=== PATIENT | female | born 1975 | race Caucasian/White ===

== ENCOUNTER 2023-09-28 13:01 | Outpatient (OUT) | payer OTHER, SELFPAY ==
--- NOTE | 2023-09-28 13:09 | MM_ITS ---
Patient Name: POORNIMA RIVERA MR#: [id number] : 1975 Exam Date: 09/28/2023 Ordering Doctor: DR Birgit Baldwin M.D. RADIOLOGY REPORT PROCEDURE: MM TOMOSYNTHESIS SCREENING BI COMPARISON: None. INDICATIONS: screening Calculator Name NCI Breast Cancer Risk Assessment Tool 5 Year Breast Cancer Risk 1.90% Lifetime Breast Cancer Risk 18.40% Personal Breast Cancer No Personal Ovarian Cancer No Treatments None Family Cancers Mother with breast cancer at age 75; Aunt-maternal with breast cancer at age ~70; Grandmother-maternal with breast cancer at age ~74. LOCATION: [facility] BREAST COMPOSITION: Scattered areas fibroglandular density. FINDINGS: DIAGNOSTIC CATEGORY 1--NEGATIVE. RIGHT BREAST: No significant suspicious finding. LEFT BREAST: No significant suspicious finding. RECOMMENDATIONS: ROUTINE MAMMOGRAM AND CLINICAL EVALUATION IN 12 MONTHS. PLEASE NOTE: A NORMAL MAMMOGRAM DOES NOT EXCLUDE THE POSSIBILITY OF BREAST CANCER. A CLINICALLY SUSPICIOUS PALPABLE LUMP SHOULD BE BIOPSIED. Dictated by: Flo Driver M.D. on 09/28/2023 at 14:10 Approved by: Flo Driver M.D. on 09/28/2023 at 14:13
== END 2023-09-28 13:02 | disposition home or self-care (01) ==
PROVIDERS: PCP Family Medicine; Visit Provider Family Medicine
DX: Z12.31 Encounter for screening mammogram for malignant neoplasm of breast (principal); Z80.3 Family history of malignant neoplasm of breast
CPT/HCPCS: 77063; 77067

== ENCOUNTER 2023-11-07 21:07 | Outpatient (REF) | payer OTHER, SELFPAY ==
[2023-11-08 16:00] LABS: C. Difficile PCR NEGATIVE (NEGATIVE)
[2023-11-14 06:09] LABS: Pancreatic Elastase, Fecal 232 (>200)
== END 2023-11-07 21:08 | disposition home or self-care (01) ==
LOC: LAB 21:07
PROVIDERS: PCP Family Medicine
DX: R19.7 Diarrhea, unspecified (principal)
CPT/HCPCS: 82656; 87045; 87046; 87427; 87493

== ENCOUNTER 2024-05-24 00:23 | Emergency (ER) | payer OTHER, SELFPAY ==
[2024-05-24] VITALS (26 sets, daily range): BP systolic 88–129; BP diastolic 57–79; PULSE 63–100; TEMP 36.6; O2SAT 95–99; BMI 34.0
--- OUTSIDE RECORDS SUMMARY | 2024-05-24 00:32 | XMS_ITS | CCD ---
Author Organization [facility] Care Team Providers Care Fbi Profiler Name Role Phone Seb Bobo Unavailable DINESH BOBO Primary Care Physician JERAMIE, DR DINESH Franco Admitting Unavailable BOBO, DR DINESH Franco Attending Unavailable BOBO, DR DINESH Franco Primary Care Unavailable BOBO, DR DINESH Franco Consulting Unavailable ROBERT, ЕЛЕНА Consulting Unavailable BOBO, DR DINESH Franco Primary Care Unavailable NAWAF, GERMAINE Admitting Unavailable GERMAINE MCCRACKEN Attending Unavailable NAWAF, GERMAINE Consulting Unavailable BOBO, DR DINESH Franco Admitting Unavailable BOBO, DR DINESH Franco Attending Unavailable BOBO, DR DINESH Franco Primary Care Unavailable BOBO, DR DINESH Franco Admitting Unavailable BOBO, DR DINESH Franco Attending Unavailable BOBO, DR DINESH Franco Primary Care Unavailable ZIEBNATANAEL, DR ROSANNE Devi Consulting Unavailable BOBO, DR DINESH Franco Consulting Unavailable BOBO, DR DINESH Franco Admitting Unavailable BOBO, DR DINESH Franco Attending Unavailable BOBO, DR DINESH Franco Primary Care Unavailable ZIEBNATANAEL, DR ROSANNE Devi Consulting Unavailable BOBO, DR DINESH Franco Consulting Unavailable Dinesh Bobo Unavailable Reza Proctor Attending Unavailable Reza Proctor Referring Unavailable Reza Proctor Admitting Unavailable Reza Proctor Attending Unavailable Reza Proctor Referring Unavailable Hitesh, Reza A Admitting Unavailable Reza Proctor Attending Unavailable Reza Proctor Referring Unavailable Reza Proctor Admitting Unavailable MD Dinesh Bobo Primary Care Provider [phone] DO Imelda Jiang Attending Provider Imelda Jiang Admitting Unavailable Dinesh Bobo Primary Care Unavailable Imelda Jiang Attending Unavailable Dinesh Bobo Primary Care Unavailable Imelda Jiang Admitting Unavailable Imelda Jiang Attending Unavailable Deidre, Imelda Martinez Admitting Unavailable Dinesh Bobo Primary Care Unavailable Imelda Jiang Attending Unavailable Imelda Jiang Admitting Unavailable Dinesh Bobo Primary Care Unavailable Imelda Jiang Attending Unavailable MD Dinesh Bobo Primary Care Provider DO Imelda Jiang Attending Provider Dinesh Bobo MD Primary Care Provider Allergies Allergy Classification Reported Allergen(s) Allergy Type Date of Onset Reaction(s) Facility (13 sources) Sulfanilamide; Translations: [sulfanilamide] Drug Allergy 09-07-19 [facility] (4 sources) Sulfonamides (Antibiotic); Translations: [sulfa drugs] Drug allergy Respiratory failure [facility] (1 source) Sulfonamides (Antibiotic) Drug allergy (disorder) 12-03-19 13 [facility] Repository (11 sources) cefdinir Drug Allergy 09-07-19 Unknown, [facility] (2 sources) Amoxicillin Drug Allergy 01-12-20 07 AMOXICILLIN Lenda [facility] [employer] Other (2 sources) Pseudoephedrine Drug Allergy Unknown [place] Other (8 sources) sulfADIAZINE Drug Allergy 09-07-19 Comment:[facility] (2 sources) Substance with sulfonamide structure and antibacterial mechanism of action (substance) Drug allergy 01-12-20 07 SULFA Lenda [facility] [employer] Other (2 sources) Allergies Reconciled Propensity to adverse reactions Unknown [place] Other (2 sources) patient allergy list reviewed by nurse or physicia Propensity to adverse reactions 01-16-20 19 Comment:Done [place] Other (2 sources) 12 Hour Decongestant Allergy to substance 09-05-19 [facility] (1 source) cefdinir Drug Allergy 01-07-20 [facility] Repository (1 source) sulfADIAZINE Drug Allergy 01-07-20 [facility] Repository Medications Current Medications Medication Drug Class(es) Dates Sig (Normalized) Sig (Original) amoxicillin 875 mg / clavulanate 125 mg oral tablet (3 sources) Penicillin-class Antibacterial take 1 tablet by mouth every twelve hours Amoxicillin-Pot Clavulanate 875-125 MG 1 tablet Orally every 12 hrs Active azithromycin 250 mg oral tablet (3 sources) Macrolide Antimicrobial Start: 08-16-2022 Azithromycin 250 MG as directed Orally 2 tabs po today, then 1 tab daily x 4 more days for 5 Jul, Active colestipol hydrochloride 1000 mg oral tablet (1 source) Bile Acid Sequestrant Start: 03-28-2024 take 1 g by mouth twice daily Colestipol Active 1 GM PO Twice daily 60 March 28, 2024 12:00am Cranberry (7 sources) Non-Standardized Food Allergenic Extract, Non-Standardized Plant Allergenic Extract Start: 10-08-2023 take 400 mg by mouth once daily Cranberry Active 400 MG PO Daily October 08, 2023 12:00am administer with a meal Start: 08-08-2022 cranberry oral capsule See Instructions, Refill(s) 0, Prophylaxis Start Date: 08/08/22 Status: Ordered docusate sodium 100 mg oral capsule (2 sources) Start: 08-18-2022 take 1 capsule by mouth twice daily as needed for constipation Colace 100 mg Cap 100 mg = 1 cap(s), Oral, BID, PRN for constipation, # 20 cap(s), Refills(s) 0, Pharmacy: [facility] 1155, 163, cm, 08/09/22 5:10:00 EST, Height/Length Dosing, 91.2, kg, 08/09/22 5:10:00 EST, Weight Dosing Start Date: 08/18/22 Status: Ordered escitalopram 20 mg oral tablet (18 sources) Serotonin Reuptake Inhibitor Start: 10-26-2023 End: 03-06-2024 take 1 tablet by mouth once daily Escitalopram Oxalate Active 0 .ROUTE .COMPLEX March 06, 2024 8:06am TAKE 1 TABLET BY MOUTH EVERY DAY Start: 08-14-2023 End: 10-26-2023 take 1 tablet by mouth once daily Escitalopram Oxalate Discontinued 20 MG PO Daily August 14, 2023 4:16pm October 26, 2023 10:35am [employer] tablet Orally Once a day; Note: Source Status: Refill; Provider: Jeramie Franco Start: 06-29-2023 take 1 tablet by meseret th every twenty-four hours Escitalopram Oxalate 10 MG 1 tablet Orally Once a day for 30 day(s) Jun, Active take 1 tablet by meseret th every twenty-four hours Escitalopram Oxalate 20 MG 1 tablet Orally Once a day for 30 days Active esomeprazole 40 mg delayed release oral capsule (8 sources) Proton Pump Inhibitor Start: 08-08-2022 take 1 capsule by mouth once daily Nexium 40 mg Cap-EC 40 mg = 1 cap(s), Oral, Daily, Refills(s) 0, Gas Start Date: 08/08/22 Status: Ordered take 1 capsule by mo [facility] every twenty-four hours NexIUM 24HR 20 MG 1 capsule Orally Once a day Active famotidine 40 mg oral tablet (5 sources) Histamine-2 Receptor Antagonist Start: 10-03-2023 take 40 mg by mouth once daily at bedtime Famotidine Active 40 MG PO Daily at bedtime 30 October 03, 2023 12:00am fluconazole 150 mg oral tablet (3 sources) Azole Antifungal Start: 08-21-2022 take 1 tablet by mouth once Fluconazole 150 MG 1 tablet Orally once for 10 days Jul, Active ibuprofen 600 mg oral tablet (3 sources) Nonsteroidal Anti-inflammatory Drug Start: 08-18-2022 take 1 tablet by mouth every eight hours as needed for pain ibuprofen 600 mg Tab 600 mg = 1 tab(s), Oral, q8hr, PRN as needed for pain, with food or milk, # 50 tab(s), Refills(s) 0, Pharmacy: [facility] 1155, 163, cm, 08/09/22 5:10:00 EST, Height/Length Dosing, 91.2, kg, 08/09/22 5:10:00 EST, Weight Dosing Start Date: 08/18/22 Status: Ordered Start: 08-08-2022 take 1 tablet by meseret every six hours as needed for pain ibuprofen 600 mg Tab 600 mg = 1 tab(s), Oral, q6hr, PRN as needed for pain, Refills(s) 0 Start Date: 08/08/22 Status: Ordered pantoprazole 40 mg delayed release oral tablet (12 sources) Proton Pump Inhibitor Start: 12-13-2023 take 40 mg by mouth twice daily Pantoprazole Active 40 MG PO Twice daily 180 90 December 124 12:00am Start: 10-26-2023 End: 12-13-2023 take 1 tablet by mouth once daily Pantoprazole Discontinued 0 .ROUTE .COMPLEX November 30, 2023 11:24am December 13, 2023 1:33pm TAKE 1 TABLET BY MOUTH DAILY Start: 09-07-2023 End: 10-26-2023 take 40 mg by mouth once daily Pantoprazole Discontinu ed 40 MG PO Daily September 07, 2023 12:00am October 26, 2023 10:35am traZODone hydrochloride 100 mg oral tablet (18 sources) Serotonin Reuptake Inhibitor Start: 10-26-2023 End: 03-06-2024 take 1 tablet by mouth once daily at bedtime Trazodone Active 0 .ROUTE .COMPLEX March 06, 2024 8:06am TAKE 1 TABLET BY MOUTH ONCE DAILY AT BEDTIME Start: 08-14-2023 End: 10-26-2023 take 100 mg by mouth once daily at bedtime Trazodone Discontinued 100 MG PO Daily at bedtime August 14, 2023 4:16pm October 26, 2023 10:35am Start: 06-29-2023 take 1 tablet by meseret th every twenty-four hours traZODone HCl 50 MG 1 tablet at bedtime as needed Orally Once a day for 30 day(s) Jun, Active take 1 tablet by meseret th every twenty-four hours traZODone HCl 100 MG 1 tablet at bedtime as needed Orally Once a day for 30 days Active Completed/Discontinued Medications Medication Drug Class(es) Dates Sig (Normalized) Sig (Original) acetaminophen 325 mg / HYDROcodone bitartrate 5 mg oral tablet (2 sources) Opioid Agonist Start: 08-18-2022 [place] 325 mg-5 mg oral tablet See Instructions, for pain, 40 tab(s), Refill(s) 0, 1-2 tab(s) Oral q4hr, [facility], 163, cm, 08/09/22 5:10:00 EST, Height/Length Dosing, 91.2, kg, 08/09/22 5:10:00 EST, Weight Dosing Start Date: 08/18/22 Status: Ordered Cholestyramine Resin (2 sources) Bile Acid Sequestrant Start: 11-06-2023 End: 12-13-2023 take 1 dose by mouth twice daily Cholestyramine (With Sugar) Discontinued 4 GM PO Twice daily 378 November 06, 2023 12:00am December 13, 2023 1:11pm administer w/meal; avoid other meds within 1hr before or 4-6hr after dose ondansetron 4 mg oral tablet (5 sources) Serotonin-3 Receptor Antagonist Start: 10-03-2023 End: 12-13-2023 take 4 mg by mouth every eight hours Ondansetron Hcl Discontinued 4 MG PO Every 8 hours 2 October 03, 2023 12:00am December 13, 2023 1:12pm SUMAtriptan 50 mg oral tablet (12 sources) Serotonin-1b and Serotonin-1d Receptor Agonist Start: 09-05-2023 End: 10-03-2023 take 1 tablet by mouth once daily as needed Sumatriptan Succinate Discontinued MG PO September 05, 2023 12:00am October 03, 2023 10:42am FreeTextSig: TAKE 1 TABLET BY MOUTH EVERY DAY NEEDED Oral; Note: Source Status: Not-Taking\PRN; Refills: 0; Qty: 9 Each; Provider: JERAMIE MONTIEL take 1 tablet by meseret once daily as needed SUMAtriptan Succinate 50 MG TAKE 1 TABLE T BY MOUTH EVERY DAY NEEDED Oral for 9 Days Not-Taking/PRN Problems Active Problems Problem Classification Problem Date Documented Da te Episodic/Chronic Endometriosis (3 sources) Endometriosis (clinical) 08-08-2022 Chronic Esophageal disorders (15 sources) Gastroesophageal reflux disease; Translations: [Gastro-esophageal reflux disease without esophagitis] 08-08-2022 Chronic Genitourinary symptoms and ill-defined conditions (2 sources) Dysuria; Translations: [Dysuria] Episodic Headache; including migraine (12 sources) Migraine; Translations: [Migraine, unspecified, not intractable, without status migrainosus] Onset: 2 Resolved: 2 Chronic Mood disorders (4 sources) Major depression, single episode; Translations: [Major depressive disorder, single episode, unspecified] Chronic Other circulatory disease (2 sources) Elevated blood-pressure reading without diagnosis of hypertension; Translations: [Elevated blood-pressure reading, without diagnosis of hypertension] Episodic Other connective tissue disease (1 source) Pain in forearm; Translations: [Pain in left forearm] Episodic Other connective tissue disease (2 sources) Lateral epicondylitis; Translations: [Lateral epicondylitis, left elbow] Episodic Other ear and sense organ disorders (3 sources) Otalgia, bilateral; Translations: [OTALGIA BILATERAL] Onset: 3 Episodic Other gastrointestinal disorders (5 sources) Chronic constipation; Translations: [Other constipation] 10-03-2023 Episodic Other gastrointestinal disorders (3 sources) Other constipation; Translations: [Constipation, unspecified] 10-03-2023 Episodic Other gastrointestinal disorders (3 sources) Diarrhea; Translations: [Diarrhea, unspecified] 12-13-2023 Episodic Other gastrointestinal disorders (3 sources) Diarrhea, unspecified; Translations: [Diarrhea] Onset: 4 12-13-2023 Episodic Other nervous system disorders (16 sources) Benign intracranial hypertension; Translations: [Benign intracranial hypertension] Onset: 4 08-08-2022 Chronic Other nervous system disorders (6 sources) Benign intracranial hypertension; Translations: [BENIGN INTRACRANIAL HYPERTENSION] Onset: 2 Resolved: 2 Chronic Other nervous system disorders (1 source) Presence of cerebrospinal fluid drainage device Onset: 2 Resolved: 2 Chronic Other nervous system disorders (1 source) Postoperative pain ; Translations: [Other acute postprocedural pain] Episodic Other non-traumatic joint disorders (1 source) Pain of left elbow joint; Translations: [Pain in left elbow] Episodic Other non-traumatic joint disorders (1 source) Pain of left wrist; Translations: [Pain in left wrist] Episodic Other non-traumatic joint disorders (1 source) Joint pain in left hand; Translations: [Pain in joints of left hand] Episodic Other nutritional; endocrine; and metabolic disorders (4 sources) Body mass index 30+ - obesity; Translations: [Body mass index 30.0-30.9, adult] Onset: 8 Chronic Other nutritional; endocrine; and metabolic disorders (4 sources) Obese class I; Translations: [Body mass index (BMI) 34.0-34.9, adult] Chronic Other screening for suspected conditions (not mental disorders or infectious disease) (18 sources) Patient encounter status; Translations: [Encounter for screening mammogram for malignant neoplasm of breast] 09-07-2023 Episodic Otitis media and related conditions (2 sources) Otitis media, unspecified, right ear; Translations: [Other acute nonsuppurative otitis media, bilateral] Onset: 3 Episodic Residual codes; unclassified (5 sources) H/O: risk factor; Translations: [Transfusion history] Episodic Residual codes; unclassified (1 source) Past history of procedure; Translations: [Other specified postprocedural states] Episodic Residual codes; unclassified (2 sources) Family history of breast cancer; Translations: [Family history of malignant neoplasm of breast] Episodic Residual codes; unclassified (2 sources) Family history of diabetes mellitus; Translations: [Family history of diabetes mellitus] Episodic Residual codes; unclassified (2 sources) Insomnia, unspecified Episodic Substance-related disorders (3 sources) Smoker 08-08-2022 Chronic Comment on above: Added secondary to d ocumentation in Social History. Unclassified (3 sources) History of clinical finding in subject 08-08-2022 Past or Other Problems Problem Classification Problem Date Documented Date Episodic/Chronic Abdominal pain (16 sources) Abdominal pain; Translations: [Abdominal pain, other specified site] Onset: 05-05-2013 09-07-2023 Episodic Allergic reactions (2 sources) Contact dermatitis; Translations: [Contact dermatitis and other eczema, due to unspecified cause] Onset: 11-19-2014 Episodic Headache; including migraine (2 sources) Headache; Translations: [Headache] Onset: 01-11-2018 Episodic Nausea and vomiting (2 sources) Nausea; Translations: [Nausea] Onset: 01-11-2018 Episodic Other circulatory disease (1 source) Elevated blood-pressure reading, without diagnosis of hypertension; Translations: [ELEVATED BP READING W/O DX HTN] Onset: 01-25-2022 Episodic Other connective tissue disease (4 sources) Lateral epicondylitis, left elbow; Translations: [LATERAL EPICONDYLITIS LEFT ELBOW] Onset: 01-23-2022 Episodic Other connective tissue disease (1 source) Lateral epicondylitis of left humerus Onset: 08-18-2022 10-11-2022 Episodic Other injuries and conditions due to external causes (2 sources) Nonvenomous insect bite of multiple sites; Translations: [Other, multiple, and unspecified sites, insect bite, nonvenomous, without mention of infection] Onset: 02-07-2016 Episodic Other injuries and conditions due to external causes (2 sources) Motion sickness; Translations: [Motion sickness, initial encounter] Onset: 12-24-2017 Episodic Other non-traumatic joint disorders (2 sources) Hand joint pain; Translations: [Pain in joint, hand] Onset: 01-27-2014 Episodic Other upper respiratory infections (2 sources) Acute maxillary sinusitis; Translations: [Acute recurrent maxillary sinusitis] Onset: 09-20-2015 Episodic Residual codes; unclassified (2 sources) Tobacco user; Translations: [Nondependent tobacco use disorder] Onset: 10-16-2016 Episodic Residual codes; unclassified (2 sources) Insomnia; Translations: [Insomnia, unspecified] Onset: 11-19-2014 Episodic Skin and subcutaneous tissue infections (2 sources) Pyoderma; Translations: [Pyoderma] Onset: 01-15-2019 Episodic Spondylosis; intervertebral disc disorders; other back problems (2 sources) Sciatica; Translations: [Lumbago with sciatica, right side] Onset: 11-29-2015 Episodic Results Test Name Value Interpretation Reference Range Facility Pancreatic Elastase, Stoolon 03-28-2024 Pancreatic Elastase, Stool 612 Normal >200 [facility] Comment on above: Result Comment: Resu lt Units: ug Elast./g Severe Pancreatic Insufficiency: <100 Moderate Pancreatic Insufficiency: 100 - 200 Normal: >200 Performed at: [facility] Lab[address] [id number] Grey Inspector: Dasha Lowery MD, Phone: [phone] PERFORMED BY: [address] [id number] PATHOLOGIST SETUP TECHNICIAN SHAW ANGELO M.D. Performed By: #### E LASTASE STOOL #### [facility] , XR KUBon 03-28-[address] [facility] Main [place] [id number] XRay Report Signed Patient: Poornima Barker MR#: [id number] 745 : 1975 Acct:[id number] Age/Sex: 48 / F ADM Date: 03/28/24 Loc: XD [facility]: [facility] Att[facility] Dr: Imelda Jiang DO Copies to: Imelda Jiang DO Ordering Provider: Imelda Jiang DO Date of Service: 03/28/24 XR/XR KUB: R19.7 - Diarrhea, unspecified XR KUB 03/28/2024 9:31 AM SIGNS AND SYMPTOMS: Lower abdominal pain, diarrhea PROTOCOL: Frontal radiographs of the abdomen and pelvis COMPARISON: None FINDINGS: Requiring surgical clips are noted in the right upper quadrant consistent with prior cholecystectomy. There is a nonobstructive bowel gas pattern. No radiographic evidence of free air. There is a ventricular shunt with tubing extending into the left hemipelvis. Vascular calcifications are present. Degenerative changes are noted in the sacroiliac joints and hips. XR/XR KUB IMPRESSION: No bowel obstruction or free air. A ventricular shunt is present with the tip in the left hemipelvis. Impression dictated by: John Love M.D.03/28/2024 11:37 AM Dictation Location: [place] [address] Transcribed By: [facility] 03/28/24 1137 Dictated By: John Love II, MD 03/28/24 1132 Signed By: 03/28/24 1137 Normal [facility] 01-07-2024 L Specimen: [id number] Received: 01/07/24 Status: RACHEL Polanco Num: [id number] Spec Type: Surgical Subm Dr: Imelda Jiang DO Tissues: A Colon Biopsy (RANDOM COLON BX R/O MICROSCO) Procedures: HE/2, Gross/Micro L4 Age/ Patient Sex Location Account Attending Physician Poornima Barker 48/F [id number] Imelda Jiang DO SPEC NUM: [id number] RECD: 01/07/24 STATUS: RACHEL POLANCO NUM: [id number] IDALIA: 01/07/[address]: Imelda Jiang DO ENTERED: 01/07/[address]: SPEC TYPE: Surgical DEPT: S ORDERED: HE/2, Gross/Micro L4 ORDERED: HE/2, Gross/Micro L4 Pathological Diagnosis Colon, random biopsy: - Colonic mucosa within normal limits - No evidence of microscopic colitis identified Clinical Information Diarrhea. Rule out microscopic colitis. Gross Description Received in formalin labeled with the patient's name, date of and random colon BX are multiple wilkerson mucosal tissue fragments measuring in aggregate 0.9 x 0.4 x 0.1 cm, entirely submitted in A1. CPT Codes 55296 Specimen: [id number] Received: 01/07/24 Status: RACHEL Collin Num: [id number] Spec Type: Surgical Subm Dr: Imelda Jiang DO Tissues: A Colon Biopsy (RANDOM COLON BX R/O MICROSCO) Procedures: HE/Estephania, Gross/Micro L4 Patient: Poornima Barker [id number] (Continued) Signed (signature on file) Jeremiah Potts MD 01/09/24 1542 Normal [facility] Elastase.pancreatic [Mass/ma ss] in Stoolon 11-07-2023 Elastase.pancreatic (Stl) [Mass/Mass] 232 >200 [facility] Comment on above: Result Units: ug [address] st./g Severe Pancreatic Insufficiency: <100 Moderate Pancreatic Insufficiency: 100 - 200 Normal: >200Performed at: - [facility] [address] [id number] Director: Dasha Lowery MD, Phone: [phone] No Panel Informationon 11-06 Clostridium difficile (PCR)(LAB) Negative NEGATIVE [facility] Miscellaneous Test Comment See comment [facility] Comment on above: Specimen Source: ST - Stool - Stool - 700.100 Stool Campylobacter Culture Res 1 See comment [facility] Comment on above: [facility], No Panel InformationOrdered By: Dinesh Bobo on 11-07-2023 E coli Shiga Toxin [facility] Salmonella/Shigella Screen [facility] CT abdomen pelvis w conon CT abdomen pelvis w [facility] [place] [address] CT Scan Report Signed Patient: Poornima Barker MR#: [id number] 745 : 1975 Acct:[id number] Age/Sex: 48 / F ADM Date: 11/02/23 Loc: CT Room: Type: [facility] Attending Dr: Imelda Jiang DO Copies to: Imelda Jiang DO Ordering Provider: Imelda Jiang DO Date of Service: 11/02/23 CT/CT abdomen pelvis w con: R10.9 - Unspecified abdominal pain CT Abdomen and Pelvis withcontrast TECHNIQUE: Axial imaging with 2-D reconstruction.90 cc of Isovue-300. The CT exam was performed using one or more the following dose reduction techniques: Automated exposure control, adjustment of the MA and/or Kv according to patient size, or use of the iterative reconstruction technique. COMPARISON: None History: Abdominal pain. Diarrhea. LIMITATIONS: None LOWER THORAX Unremarkable LIVER: Unremarkable GALLBLADDER: Cholecystectomy clips identified. BILE DUCTS: No dilatation SPLEEN: Unremarkable PANCREAS: Unremarkable ADRENAL GLANDS: Unremarkable KIDNEYS:Unremarkable AORTA: No abdominal aortic aneurysm identified. RETROPERITONEUM: No significant retroperitoneal abnormalities identified. MESENTERY:Unremarkable SMALL BOWEL: The small bowel loops are nondistended. APPENDIX: The appendix is normal. COLON: Unremarkable URINARY BLADDER: Urinary bladder is unremarkable. REPRODUCTIVE SYSTEM: The uterus is absent. PNEUMOPERITONEUM: None PERITONEAL FLUID:None BONY STRUCTURES: Unremarkable ABDOMINAL WALL: Unremarkable shunt tubing terminates in the pelvis. No worrisome fluid collection. CT/CT abdomen pelvis w con IMPRESSION: No acute findings. Impression dictated by: José Perez M.D.11/02/2023 2:27 PM Dictation Location: [place] [address] Transcribed By: [facility] 11/02/23 142 Dictated By: José Perez DO 11/02/23 142 Signed By: 11/02/23 142 Normal [facility] 10-19-2023 L Specimen: [id number] Received: 10/19/23 Status: SOUKelli Polanco Num: [id number] Spec Type: Surgical Subm Dr: Imelda Jiang DO Tissues: A Small Intestine - Biopsy/Polyp (SMALL BOWEL BX) B GASTRIC FOR HP (GASTRIC HP) C Colon Biopsy (SIGMOID POLYP) Procedures: HE/6, Gross/Micro L4/3, H PYLORI, IHC First AB Age/ Patient Sex Location Account Attending Physician Poornima Barker 48/F [id number] Imelda Jiang DO SPEC NUM: [id number] RECD: 10/19/23 STATUS: RACHEL POLANCO NUM: [id number] IDALIA: 10/19/23- SUBM DR: Imelda Jiang DO ENTERED: 10/19/23-[address] [facility] [address]: SPEC TYPE: Surgical DEPT: S ORDERED: HE/6, Gross/Micro L4/3, H PYLORI, IHC First AB ORDERED: HE/6, Gross/Micro L4/3, H PYLORI, IHC First AB Pathological Diagnosis A. Small bowel, biopsy: No significant pathologic abnormality. B. Stomach, Biopsy: Reactive/ Chemical Gastropathy. - H. Pylori Immunostain Is Negative For H. Pylori Organisms. C. Polyp, sigmoid colon, biopsy: Hyperplastic polyp. Gross Description A. Received in formalin, labeled with the patient's name and small bowel BX is a 0.2 x 0.2 x 0.1 cm wilkerson mucosal tissue fragment, entirely submitted in A1. B. Received in formalin, labeled with the patient's name and gastric BX are 2 wilkerson mucosal tissue fragments each measuring 0.2 x 0.2 x 0.2 cm, entirely submitted in B1. C. Received in formalin, labeled with the patient's name and sigmoid polyp are 2 wilkerson mucosal tissue fragments measuring 0.3 x 0.2 x 0.1 cm and 0.2 x 0.1 x 0.1 cm, entirely submitted in C1. Clinical history: Epigastric pain, nausea, screening. Rule out celiac, rule out H. pylori Specimen: [id number] Received: 10/19/23 Status: RACHEL Davislisset Num: [id number] Spec Type: Surgical Subm Dr: Imelda Jiang DO Tissues: A Small Intestine - Biopsy/Polyp (SMALL BOWEL BX) B GASTRIC FOR HP (GASTRIC HP) C Colon Biopsy (SIGMOID POLYP) Procedures: HE/6, Gross/Micro L4/3, H PYLORI, IHC First AB Patient: Poornima Barker [id number] ([facility]) Specimen: [id number] Received: 10/19/23 (Continued) Signed (signature on file) Asya Wetzel MD 10/22/23 1600 Specimen: [id number] Received: 10/19/23 Status: RACHEL Davislisset Num: [id number] Spec Type: Surgical Subm Dr: Imelda Jiang DO Tissues: A Small Intestine - Biopsy/Polyp (SMALL BOWEL BX) B GASTRIC FOR HP (GASTRIC HP) C Colon Biopsy (SIGMOID POLYP) Procedures: HE/6, Gross/Micro L4/3, H PYLORI, IHC First AB Patient: Poornima Barker [id number] (Continued) Specimen: Received: 10/19/23 (Continued) CPT Codes [id number], [id number] Specimen: Received: 10/19/23 Status: RACEHL Davislisset Num: [id number] Spec Type: Surgical Subm Dr: Imelda Jiang DO Tissues: A Small Intestine - Biopsy/Polyp (SMALL BOWEL BX) B GASTRIC FOR HP (GASTRIC HP) C Colon Biopsy (SIGMOID POLYP) Procedures: HE/6, Gross/Micro L4/3, H PYLORI, IHC First AB Patient: Poornima Barker [id number] (Continued) Signed (signature on file) Asya Wetzel MD 10/22/23 1600 Normal [facility] Nonvisit Note - OTon 023 Nonvisit Note - OT , pt cxl'd in remind system, no reason available. Normal [facility] Nonvisit Note - OTon 023 Nonvisit Note - OT pt cxl'd in remind system, no reason available. Normal [facility] Nonvisit Note - OTon 023 Nonvisit Note - OT Pt. cx, d/t an emergency. [facility] OT - Home Exercise Programon 11-08-2022 OT - Home Exercise Program [id number]#1.00 CD:127 [facility] OT - Progress Noteson 2022 OT - Progress Notes [id number] [id number]#1.00 CD:127 [facility] OT - [place] 10-20-2022 OT - Orders [id number] [id number]#1.00 CD:127 [facility] OT - Assessmentson OT - Assessments [id number]#1.00C D:127 [facility] OT - Consentson 10-19-2022 OT - Consents [id number]#1.00C D:127 [facility] OT - Home Exercise Programon 10-19-2022 OT - Home Exercise Program [id number]#1.00C D:127 [facility] Coding Summary.on 10-12-2022 Coding Summary. CD:[id number] Ww+ PGhlYWQ+FP1KHNTsW39atRP ufN0mU1QRBZqHQiivKSSFOZ uTLwPebnVuTZ3nuPHdXVFm IC8+NU5dCSXoNnmuzXWfs9X 4vXP4U28sma0vPHzkyYG1IY TcUjPkafzpx0mvuQb0IQkmE mluOyBt OEAjsP54SBU5mU24Dk13tOS orUQtm2sseMf8FkKmRODbLP C0mShbYJifr9CsRTFwM65vw EFqu1P3 BAHnjQhitRWkWzRnkTI3sX0 bCQvsxuuzs7krtruzHhr8ea 45eGQls8B8qBN2A8HaivW4P GJvbGQg KgdfbKYMoZ2mjglwh4rrkja cGiMpMZEyYGu2ZOs5XBQubQ ccSyMcRJ98MMY1VSBtenDnA 2FsLWFs yIjyIpI6q2P6Ok1WS2TMXvt nI7WTETRHRQqdqOP+PC90cj 77K5ArQvbuHhs4RSAiDIL2e VM8mW3c EBAqQIiet4Y1jEJ1X8LqagD jji8cx8osNOCaLQcrB74mtH Bag5E1YJUxiJX5XMUmcNlqQ iBzaG93 Oyc+CRPmdOudg6AuNwkni3c ke7opgGb2YzmrQLFskkUbnJ huZRK7o4JbXm1lUBCdvWY8d TJ1wD6j KkYzUjD6RLqaN435OkVzqCH aRiwmL17eO7QdpCX+PHRyPj g3LRYqgEpmYQ3hE2TpZYLnb mctbGVm lFgjIM5zBFOhwfuaOTOglV9 mLSLaP1l7GdYzRqG2CRdqO8 OrEMAatekmVi04dC7qQjQuU fA6BDba C9SwyjC6IMRzjCXxDNwxPID 8Q72bv9S9COWkSJFyWFR8fI P1oS0fdMqttivyeINwqOjlq mVydGlj YWjcAQhoJ366APAplJkvSaS vZGluZyBEYXRlOiAgMDQvMj AvMjAyMzwvdGQ+RCXaUBK6z WxlPSAn zNJmRZruRy4lwKontEslKU9 jZAOcprzgGPHsbT4uUVDgsB FovNojYS5rKGUsqxfgj457E iAxMHB0 GEMqxVSiL1FgsE4gRoYwEYQ iUUWaI8KifWLeXHjeF334ND vsBbA2OSXtkuWiG6QuCGWdm WduOiB0 z8P2Pr0Yt5AwgmppQ7YwyJB uFdYpTtmjZAd7R5VvFzvqbU I+XP71WUUbVF58XAd2TKV0b WxlPSdi HHYrR6VyeF3iEhIyGHPoOFB kOyc+PHRhYmxlIHdpZHRoPS nhBXWkJyWodEnlDL4pLh7zH GVyLWNv tZfyvTKlNyJdd2eePFYgXMl pFU3qkQxvR9NwiQM3VBGdy7 b4Jq83O61dD4KvjIY+PGNvb KO9oAA6 lN1mEjCyQvQ6EQqjR793GnY xeXIkQrodl0lag4bgpBb5Az W1MCYnooQchZykHWN8n4EjV t82N00o IHdpZHRoPSIxNSUiIHZhbGl lru6ziK4hAq3+WPGepPL4hT R4zD4sLzZxQpK0SGzzO241F nRvcCIv Ydifm2hfh0xiiPi6SoTqZBR odaJxpYthWPY0n7FfSt87S5 OvcQyzv8AyXel3vw35nZEme 4N7nOM7 H5UaFEInyddwmCEtwAolDC5 dJRLxiprgQILmeC0kWMEoM3 l4ZbJqTnT8GGaqV4JndlY3P GJvbGQg ZOXqdWTSyY9erhkln5mprsw iLhLmZPFmZKp0XGy7FCMtcW ekStHqCKF7DqL8WOL5yKJmt O2enIbq gesrvB5bNvc+ZDJ7ePLhmCJ CWW3kRcqmeDS+GHLcNXQ6gL guAOrmYJHnqB6cFXKlL5h7Q iAwLjA1 AYyiD2FaoyL3QMWkxYRxVDR ypULSjT4pfoymy0plxidtVf SdZUOiNNh6XNa0ZDLnvMbrV iBsZWZ0 ZuF7BTQ8ePNfvB5uhGaydtb jjM8cSet+ZodmaIrwLSI4PH a1V2RaEiy1FYSljZisAR0ns GFkZGlu Hc4eiWxzgRlxRU0aHLFmhgv bq247OmZvi9oyHLAsjETeCG haDNA2P94fe7T2YBTfGPGxU MP8dVY2 cD4vmXglbcwddRRlwZgcnuP caWmmSZovGZboU429TRZxpU jqXiZoYVi2Z5PqHeu5YBHjc HzcXM2w cGZqNJjxXf6uoMuobPzrPJ1 cPADmzezfk278DuSia3ueIF SeoROlCZjnPYB0L21tk5K8O CMwMDAw THP3fAP2tA8lhSzfeqpqoPW mdDsgdmVydGljYWwtYWxpZ2 83DPKpmGlmKgQazGn1W6UpC pv7DLAx oCfsIR4noDHnRJzeVj0jaAe xqGvgDY0xGTVoicmhg978Gy Kmp2hfRQAkzMEcWPwtJNG5J 87az9Y5 OKQgGQUiLMC0hAC7qX8tzUk nbjogbGVmdDsgdmVydGljYW vhBLsiF153FVMycEamKgAmj GllbnQg FTceAJl2D6XqIuiqrXT+PC9 7SYWuPE16fFJoeOHom3oygF i1ErKmXXPaZSH6vJorHOkts 3JkZXIt B27gfTCvt1R1ECYrpWqllEJ fLpDhxMA3zL4qSGfbmqyak4 lenrerSqmjq3dqxg11tQ77B 29sIHdp ZHRoPSIzMCUiIHZhbGlnbj0 qwJ4jKp5+XNUvmBZ7uOI1bT 3eYHPnAkE0CTqqL964GbGcr CIvPjxj w4bgh8mioOb0MyZ2PFRpicO tgOxtSYH2o1NnFm37Y06gIJ dpZHRoPSIyMCUiIHZhbGlnb f3ilU2s Ii8+ARGmiSI9gAN5hV0jRsU rDlB9LKzzW982KlKosCLtAt ddA31dD0GlbPN+BHPvNel5A CBzdHls DJ2tzANhTTfmHk9cAPR2SpE pGaRdEVumK9RnRJCmtkqecr mjgQP2SCYtSAWilP61Fr9dv DogMTBw oBLPcH2oaifdq8xykvwyLvN dAYDiQLw8NIo1OVRmhUfiQm AuXFN9JhW2ELZ7sRPtkL2sa Glnbjog kB1wS0VtGTAwcancRw52bY0 jCmPnOuG3EEfiVfk+VkVJVE ttDMMMLJXSXIp5N6EoDev4E CBzdHls QH3oyBWsGMutJu0hoRblyXr uRE0gZOOzbxvgDRFhsK5vAS EpoYOaxFmnVN0iJRZrkspts 250OiAx QKS8LWYupXYwR9FwjZ3dQzY jQIHbHLKnF0XbyLBuDDhxC7 95WDkoBnT5GFPdqgTmO4VyE WFsaWdu DkM7e0U6Gk0eBv3cXF8vSUa 8OC91BM38eYHib7L2qTE2V5 MeDVKcmjxnxahvrKR0GBApQ DUwaW47 bDEtLWtcLl9bh9A1q217KDV mKZDlrT49Zb0emBnxNIGwfV TYeH2zueuox8rrqsqjVrOmK DAwMDt0 NEu2METrgZxnCuTwLGV8CjJ 9KZN5vUGzzR5emHjgxpjypQ 9wOyc+FHekEZBpcxW0R0XbU tp9TFPu cWwgSQ1bnRSvMEcjPo8prPp zwWqzAK9xRZLtzzxlHBAifT 0rKIHxcGYhfBjyAU4fJAZnl falb346 ObRdVRM5LYUgaHBnW1ZfuF7 sHiFcMZTqFPYpR5UjvZDuAD ybB008DMypZcP3XLQshpXiX 2FsLWFs iPemEgF6t2S7Gw9GWY0ebDM 9Z4FzSjl3TQSwfUbuHT3soA SqESztLg2iwIwvqJjyTZ0yN TBpbjtw PRQsuI6mWDVagBHdcEdcIH1 cLICucpgze455WlFnBCR2LX UhgRUeV8XyrC5iSqOfWBYrM NMkA5Zk bKDmKVpjW132ODfoXfA1QLZ djjKuF7SuMWNdqYsjYtV3b8 I9Qo7NPBK8atHgixv2H4VyY jwvdHI+ MA39JGPmFA96fGEtdSHac0i cuPu8FkWsGOEbOLK8aIvrTV shv5OfMNZvT54zkMTix6A5I GNvbGxh fUVrRfYvcDZ0oL8zJQdhptw mb4kbjdppRdvbq5qxht91yP 05I90oTBstMWJfQWNnNLLbW HZhbGln wq5mkL6sMy5+TPYjzVV9fKA 0qL9tTbLwIvR2RBbiT900Jy GelTCkRnwfu2yoz8umyEi0D jIwJSIg ezTguJvqAHU7w6JbCb75B53 sIHdpZHRoPSIyMCUiIHZhbG tqwi0rjR7gDs9+WC6vs3xjo y46gN77 dHI+JNXwJYT1hXxvDFbvFKK cdB0xSYnrSuS4TQAvLuVmaE 26eWWrGTifLe6ppRqqiHtdR N5bPPTz amikj632XfCkc9akBHUwtDO iJQffDLO8L96pg6Z8FYArFR ToOPR9yIC6aK0ycVoellmwi GVmdDsg tqPvcUxqUSwcLChhB011EFH kiHhvDfMbgZSgY2jevjWPXB 1lOjwvdGQ+OHNwAEO6pGdoI SdwYWRk oK4aXJAqL2d9JhIfMdQ4UHx jE9JwppM3DKUcgQDzUBXfiX SDrU7abkkiz8vgaenwLbQlX DAwMDt0 HHn8KWGxgPwmHpVtZGB5NhD 6KMO0zFTbrW2xtVwvbfecpF 9wOyc+RklOOjwvdGQ+PHRkI XV0pPci ZRuvXLHygH9sASNeG1x0StB aPiF7PIquW1ZxtiH6BVOfdL OfLHAmxJIRtM7hhivbi6pex jogIzAw KPAgXNm9ONq0BDPwrYmcHjQ wCTS2RdJ9FTF7iUGhjU5dlL wuqcvxuP4zQbf+TVJOOjwvd GQ+PHRk VXN6uJmpOWicWGSnbQ3eLHX cB8j6NqXwQnU5SZraU9Ymul X9LTQzrPPlFNDvaVVXbB7yu penp0cc okpvDvLcEYBzFRu3VRc4KUP eyXarVhVzNFJ4IcU4TXA4lB RkkW8jzSjpsuvxiW7fQdk+U WE2OOO2 BD17CV55Y8RmLtcuzELymEP +PHRhYmxlIHdpZHRoPScxMD PzPuEffOsyLH2nGw9wCLGaA WNvbGxh cHNlOiBj (more content not included)... [facility] Consent for Treatmenton 09-23 Consent for Treatment [id number]#1.00C D:127 [facility] OT - [place] 10-11-2022 OT - Orders [id number]#1.00C D:127 [facility] PT - [place] 10-11-2022 PT - Orders [id number]#1.00 CD:127 [facility] Comment on above: Other Comment: ot... not pt Intra[employer] Documentson 0 08-31-2022 Intra[employer] Documents [id number]#1.00C D:127 [facility] Coding Summary.on 08-30-2022 Coding Summary. CD:[id number] Gh0 bWw+PGhlYWQ+VG4YFAYtY15 llHKlqX2jF7KXFApSCngrIW KYJEaSWvTcguIrGN6kvYOkW XJu IC8+UQ7eWZXxAtabyZXme5O 8wDD6A37aju1sOXklbJB9ZS ElHfVuwdcwk3hmcCj9HVklF mluOyBt MPFhtB48HDA8wH81Sg49mQB crOEqt9ijwCl1DjAyPYJgII F6iNexETfso3NzMCHzX84fw FJpv9U6 AMFaeZemnNNjMsPrmWJ1tE0 yEDszawcop1nmfoikYkb0km 80hAPuy1Y0rZU3B4NktwQ7B GJvbGQg OdtohAUDqF6ynblrv8umnzh sZvZiSNMwPSx2XXf5NMSlyQ iiAfZfNT54RIV0GMXercGdA 2FsLWFs nDjyUkO4z7D0Vr6NS9YGYnd qK1FJQGSMZBabuGO+PC90cj 50G8ScVnysFmf3NBUyKKI4p DX6iW7w DUUrTTmcu1X7kPF1X2DsoeV dkb4ec8vkZCNzQAaeB59owH Tvf4X6TEBrxHI6ZXGzeSfsT iBzaG93 Oyc+RRRjxXmtb6OqMdlmg8j wl3cobNl7GpyvJVUlwwAslU jtNAX5s7MxHh1vZNSbfAS6d CO1hO4g WnLaXzK7ECohZ216CbUajIU xUrxpF34qT7SocEG+PHRyPj z1RGOgnScgUA4sQ2QtXXMwx mctbGVm nFmsJX4eCUCszvgvSWGpdT2 fGUJmU1w1TiXbKnW9TEkqN7 RsTBCcptmnFn66mN5oRqAmD hC0FVfj D3YxnbM4ZPWopRBfOKbbDSN 7F55au3K6AXEcURJmSJA8zD H2jB0ycEmtvrldmGFgkDira mVydGlj EXinONbkO206GVOvrYpnWcC vZGluZyBEYXRlOiAgMDMvMD gvMjAyMzwvdGQ+TFUyZED0f WxlPSAn cDGdWFpdPl5hcEbxgRoeFE7 wYFJjdzkgDEHunU8cYNZljE FbyGycZR0jVZJdqhyhh615O iAxMHB0 GRCqpFXsM7NfsI9dCtVbNHJ uNQAwM2BavNTyNJsmU282QU smKhP1RSVpqcPtD2YoYCIjt WduOiB0 u7W6Df8Rb4KamkeqS9IbzOQ aBpXpRprcKLi2S0NyHajxfC I+PJ48ZBCtZB71UNf2NSD3s WxlPSdi CQHhA5HiyX6hHhEsGGYsHSM kOyc+PHRhYmxlIHdpZHRoPS ndZOEzViAwpWpjKE7lWx8pR GVyLWNv uBgbzVEtFsVmf0byQSHeCKp aVJ1hxTdsB4JafGE9UPMut4 c8Yc48J21yM2DtvKN+PGNvb IE5sWD3 tZ5fHvVrJcU8FDjlL230PuW vzPYyRufxv2ucc1xkzCm6Yy O7AIEnolWfnPqbJKS6t1ZgI g64S68r IHdpZHRoPSIxNSUiIHZhbGl hnf7rgJ0tGu5+MCCizXH8kR P6hV8iAxFxZsU1FNcrJ646R nRvcCIv Tenbi7drn4kyxRi7ZiHeALD rncGtdDbfDLD2a7OiEs22X8 DvpQacp7YwVaz6hq75nVZhr 1Z8hLN7 Z1TaRSVdwnggqMCrnUjpFZ6 yUCUrasuuJLYsfS9kLZWsE6 d9SiChWtD1GXuzZ1EacxB1W GJvbGQg REPqwYFQwE7wgnqmb4wuwfm wCmRpREIlEKd2DRb7HCCwxS usLyEbYQL1MsC4ERN9jEJkj M7ukQvh spjvlE3yKxx+ZWM4mOWyfOZ BSX7mQgzyzVO+DXOmMGH3bP sxXXryLUIxaO4wPVLbW3b9K iAwLjA1 XUasX2ExceG0PCFzyOHnDBL plQYPrK9oszrfp7zbnbotGt PkHCQvMBu6CMa7MKWxpSulR iBsZWZ0 TkQ9WXA4lVBctJ4leNrakxq fdD7fFah+ObvraOyeXRF1FS n5Y8QoCor5RBPofPplLG9oh GFkZGlu Sg9ieSjvtVreTV9jWGAshaw xs483JgSei1efJEAeyKCeIT yxKGI7H71uh1P6UJLxUWYgE ST6iUZ0 fL7zaHvxcphjeBXkoLfijyS jdEziAHoeORvtY466LCYagQ gqBhUcTFn3K2TnOxf0ZXPtc RcdDH6c aCIwMUmvHt8bsFncoWieSL1 hOJGdxnaxa954EfEuc5wtVV IztBKjCJbgYGZ5G20su4X9V CMwMDAw VTE1ePG8zC2lmEdbtaenrXX mdDsgdmVydGljYWwtYWxpZ2 73DPPibRrgEdPpyZn8U3LgK ee2JOAa fCkvRK9jqIBsVXyjVb1fwHm xcWpiOV0aIZEqrmwli865Bx Jmv4ewTMSfhIKiNVghNWF9Z 38vj6M6 OHNcBSPxKAB8gDJ9eK4vzPc nbjogbGVmdDsgdmVydGljYW pmHXomD402UFSttOrbZzDdw GllbnQg QUxlJYw2Q6WwZgbkhYC+PC9 8SPHdKV89nZNepIHeu8sgaC s8FnQfCVLyVBB3gIujSPjlu 3JkZXIt H61reHWod1B5SJJihPdkhWC mUlVxxCQ6mU1aKQsnglfno4 zeoyntWufzp6scsp64nO61R 29sIHdp ZHRoPSIzMCUiIHZhbGlnbj0 ooV1wKr1+DYHpqKA1fED9vB 7jRQQoXgI2WDnlD910IgOge CIvPjxj a5iod9araXs9FcN1ERFeuwA bdDinXQC4u2StMx91Q16kMN dpZHRoPSIyMCUiIHZhbGlnb e4lrY4g Ii8+HFYmtQR0mHU4kP5gPsG tGpE7KUtkN222PrYwwXVcTz jiK35dT3AczHV+VJKzYox5W CBzdHls TX3sqLUpYJlwWx7cVWS4JcJ vGwBgVAtnE2DwGJMutyllrf lqoOE1TBEwMZHxcQ02Tu1gz DogMTBw sBBDuV6gimzvz5xmoulsHzD vSPNgPBa8JQv0EHJmzFriFy DkZFM9LqC6VNM4kCNuvP6uv Glnbjog tB7nA6LiNQLsfxrpKv60yD5 kVsRyDvU0AWhaVkc+VkVJVE klNMUMTRXEJKd2C3SpEgv9S CBzdHls VF6rlUQcBKsnBp5lvOdjgNz fDH8mQSYboxuyDHLsfK7yUS VkwLTsqPxmAH9kCSMaxzthz 250OiAx KEW3CROmyFPgO2ZboI4eAdC uZLIzEYDxY6UffRWuLLyeG5 97IElaCyL6VUBpaqIgR4SuN WFsaWdu IzW2p4Q8Jk7rSd8pAW2gXDq 3VK63HZ68iXZtb4J7xKY8V5 SrZYAshyscasigtDF8HQXvL DUwaW47 zWEpWTgbQt7fe7T0c750RHT cZCNqlT12Dc0leEvwBWBkoO IKiM2pixtce7rxpgdkFlJnM DAwMDt0 CGu6LJPkzQiyDxEeMWX7ZkB 1JLG8gWDadE5mxEiuwaguaQ 9wOyc+CCyoMABkjpX7F4KtS sz1AASe wVzuHF0gbXCoGXjxYi7lqEr qwPteOO8iZFUbpzlhDHLclK 8mDNYlxQBpeQvdJU8xAEPxq wwiv042 MdGuCQF6GBYpiRUeR0GsxE4 yDdUvWAJjYYZeU0JyoRTbWP ipM600BGywLhO3BGGmsiSmR 2FsLWFs zYxjMjM2t7H1Tg5CLK4osIO 8G9IgNkc3NEMkdVnaER7acS NjEYsiYa3luStisVucHD0tC TBpbjtw EHWioH0tHBOuiWPbgQepQW8 iIRHadsxij561GqIcCQO2ZW SreJPtT1ZzsH1aMqAfIYErY QSzW2Cd fIQnFUbuD511NIdjSiV2DHI mxzUbU0RjFDQoaHrvMtK5i0 Q7Uw7OoQPnCSSbBC91JL93R O34L0Tj PjwvdGFibGU+PHRhYmxlIHd pZHRoPScxMDAlJyBzdHlsZT 3hPg9bAXYuWWXssUmklUZrR xPfn4xt HFBiPFtjVJ2edPzlQ9BmnMT 7HLIki7w6Hz24Z78kN3KefZ A+MSFzeOP3uZT8rT3xOuYpP oI8XCea X069MzRqpNRvQsego3rnt8e kdWj9TmQeFIYbpuAemFcqWH W2g8GhHs65E18sAIieKUQbO SIyMCUi JWPziOzmsc0azY6hYw9+PGN geYD1zRW0yK3zXzIzVoW3UP ncP417JgYzeUIgXusbS49yH 3JvdXA+ BHZqCpi9XBGrzKmbVN0xcHY vHZjoOq5hGTD9VpGfKxIaLX djM6JbBWRyjdwigyqapSL6S DAuMDUw cA49Yn1scIycLx5xBMPyAVJ 4IOUqlUJwZ1GxrB5sIrHtBL SpHHOkU5WskDMrOJxoB543V GxlZnQ7 ZVBylgIgW9DvVBKrhYemAhP 2g0X9Br7NeWnzxRZpNM6rQa TnVXx7E7MkVqy2IECjrQbrI N6esTZl IOkdDd1tfFyitQohAR5nLVS aacnsc146NqOee5tlGHEdkQ CaPAatOLB7B54ml3V4NMVsG DAwMDA7 dDR0cI7mdIbmmcpkkUBaaWy hisWbaPvxAZaqRZimF020YM PdrKqvBdCCJbf4T6PcEuw6G CBzdHls CN3diJIhUKhdZj1xcWabvXh aJY0eKFZfhwahs389SjZxl0 pkPNMpfKDsFTlcLVW7S35am 4U4ZLGl TGEvSSX7nYY3xS9ztHpuwjp gbGVmdDsgdmVydGljYWwtYW ccK091GCUxeXcjSp2IMde3X 0ViTnv5 UAXmcPdwRI5ywVVwULkuYw5 rgLxawPgqXJ8bMDTfsysmf1 17MjOws7rsGNIqrKGxEJxzP ME8J52f h5O7SQWkSJRqVLT4fOY5wN9 hbGlnbjogbGVmdDsgdmVydG zuMPssTWvpP369HIHldKnoO lBheWVy OjwvdGQ+YV64er31S2YuTjd oUfa8XEOeSNQ4sZR8zB6sFH IdUFbxz7W0rUB4L9OhioJgx a3ar2dj YXBz (more content not included)... Normal [facility] Physician Orderon 08-30-2022 Physician Order [id number]#1.00C D:127 Normal [facility] Coding Summary.on 08-21-2022 Coding Summary. CD:[id number] Gh0 bWw+PGhlYWQ+EQ9ONTQwS29 rxEDdoD5BP2dMTF7WHPMFSS HRBZ9ZJB5vhEH7LBexN9Fzc iAv TyrdtRIhNH92OPh0BEV6eYd eIHmzjL8niLBxK3j3XeTzGV 03mT82EGtjOIAwXhE8XeMhp jsgbWFy M2rmXrBcuTDfHag+PHRhYmx lIHdpZHRoPScxMDAlJyBzdH utOD3tHw1gQMCrVJUacJjtm HNlOiBj i5pxTSLgFTfnUU9ezWkuH6L faRT9YLOdz0u4Kc15lVI+PH ZoMWU1wTjkEReag270DrVmt 2ijXRQ7 iDQaPZjsNLG2P20cb5S7PXR oIZOkWMN0aHF8mC1smWenve mgK5HjqUMySlB8PFI7gAKdk E0tlAqb weykjN3yLuh+O90IVB1AQUJ TGZ0MVtt3T2NdHdaiyFR+PC 23NFBePJ55yDUpvAThl7kof Pu8YbYg SLGrMFN4jRtuNAimi1InCDC uN70dzOZje1N7BCDdsBveeI VdJgLexSX8cI5mSVrawvjrs 2hvdzsn Yvomy3kazp31jG11X02kHTf vOTWqMKA9XETjSYHynBceow 0xkE8xTj5+TEpaq1ywn8izj Hs9KpDq RVLxdnFikSdiPME0b5FpOu0 4E7RivTcxq9VnJsu8tv96lX Hss9B5hJQ0IUerBTDgrE2tB WxlZnQ6 MKRiPhPtkL08vJBvYRwzXr0 guTlaxUwsUB5vLNOgqptrND CgmZ7qXPKpbMFedGqzVF3xB TBpbjtm l286RqKxYHK3ENYzaABwF3Z lvY2hMiMvNVHtBBAyH3DzvO WhBJpwA238KYpbJzI7RRJyv qLoG4Ej TXDlrHryRvC2f8I8Ms6Wj8O ohosbRVN1PGsdSFZwOmE4Yj QmQjI1Y5ZwGdq7WJDxtWbgI T8jI7Of VAZirziqkckwaHW9KLKrTFH reZ40iKJmLUfnTc4ep9T4i9 53FSAyOUQduN61Kq1jzJopC TBwdCBU gC8kdoufw5foubryBjWdFAN wDGj4EPa4TIMjnIzuEtHqSG W1IaX2FVP1wVMcvV9mnSpyv pcxoR9u Oyc+O86hsQ1jYSG7TNE3vai qRPUhlnRzQE64JZ59U4HhNc wvdGFibGU+PGRpdiBzdHlsZ X9kLnDu s0esf2MaZJthE0RlYPTbJMd oKho9OHLfFSC2kCZ9zX0sLU ZoXHeyd7H7yMP2M6RdldXhn x4ui7pd MXYuQCraE88orMKpw5B1HLE afYZ4RUDcoClpAjXubC68Dq c+DACgzGwsa1InZscuv9ral 6pkyTo5 QxAyTMOyevTpxAjuRQK9s8P uBa12K49mROwtRVVdBKFdTA YzKXQvvNtbpm7kcG5aQh4+P GNvbCB3 eMM4oN8wORSzVzX9CTckX19 1ByZmlIPeOmdyj5nye5haoA u7PzQjIJVocbNqcXmdCIR2m 4RhSo46 O93lEKtnXFEhGSOgTMKdHMW lsQpqpk3fvA0gNm1+PC9jb2 ygno92gU09zOG+OYGtEOA1i WxlPSdw JKGymD3pHJteBlY8FMHwEgG ndM89lLKvRGjjFn0ooPkirN uxQS8rYWEyvupkf515LqZgx 2xkIDEw lGQzVYvbCWP8L25bz1M6FER nCZKsDHI2iCA5mQ2enZuyxj ogbGVmdDsgdmVydGljYWwtY SjpG092 IHRvcDsnPlBhdGllbnQgTmF zNDf6I1BgQak3DKWmuSzbHR 8lfCKhCBdiCg3djQnpoHjvG O4fDMCw olwsa647CxKkg6hwSYKerHB rHTqxJMR7Y63ov7R8DMOwDX SiAUL7jLJ4eU3jdQofebilp GVmdDsg cfUvxStcTMfrHMmrJ086WCI flHpbExOevdByGHCigWL0QQ 12RF90yVHcs2Y0mAU6Z0IcY GRpbmct hwazaWS0JYQtFFGnjP51Yq0 gcWjhXe0sFTRaWIX0WMDahB CgK4GvcQ4bAvImHGHaIXYvT 3RleHQt LFarK414TGjuZnQ6INYtkzT sU4HsVOYyeDuaRuC5k3E7Bc 8KS7X5ML69XX73oVEhh2Q7g TU0Z3Xa EJOnvyhuosukbYR8NTIuCCU spK60Um0fiMhqFh3wQPNaJI H3LHVkfKIkB6KlgR8zKxDwQ DAwMDAw N7TajCFrVMuhX118FXrtGvA 4UDJbspUpK3AlTLOdlQlsQe F5i1W8Ms3CNQy3UD30UV51y MPoz5Q2 pDQ2T9CjMZBvuzfzxpojnUS 3UUQyUISewW28Tz3wbMvnAx 6qSVIgYLU0UUErfLTuP1Lmn K5lQdEb IXCpCAVpQ8SreASzCOclF71 2HFuqRsR2YKMxmzVnF1JaGJ GnmKqbMrG2j0H2Od6VAIToK L45GBJ0 tKU8CW72YC86L6IcFvybjCB ibGU+PHRhYmxlIHdpZHRoPS kqOXOuOcJpxQdfUQ2vFi3aT GVyLWNv oKqwiVSnAyHlr6vcTSLaJYv gCC4muFbcM2GxnKO7BWNhj1 r5Ir83S05mX9WfpBQ+PGNvb BH0rHJ6 mX3mVpTkFxX1HQotF354VdP jpYFxGmbzv5esi3knaOy4Kv T8PWCdjlSrzLegMMT1v7XoG o01X73j IHdpZHRoPSIxNSUiIHZhbGl mlc7skW3yMz6+ZTEeyTE9gL S7oD0wLlRpLlJ9FIszS033T nRvcCIv Tiyhj5bpk4aljMc0YaXxRRQ dwiAvzNybNAW1b3SuYo80T0 ZuvHznk3ZfBte2pm65vBPwj 5W3tBN3 J2FpTGRrampvcKApuGohOO4 xTJMgtobnJMIgxA8oRRUjT7 o9IqPhDxQ7BQerA2FfgdZ0L DEwcHQg DKfxZPV7H53nu7H1GGSpIYL uSTU4pDA4qL6biSrhghcmvQ VmdDsgdmVydGljYWwtYWxpZ 246IHRv vUnwRDCfxW8eVKQisSDagKf qLW2sLOLpcqevNaOINERWCO ULRbgDNYQKDB40UM78wEJnw 4A7eLU5 M1PjIQTkvllebiurrXN9DSE sNCZctB23oLZcGAdePj8wt3 M1m390WYOgFOXmxX39Jr5wd DogMTBw tFLXmB2fjrrnd7lkatkyJyM nDMTwNZi9CGo5NOYwtCujHc CuMVT5InL7RTO9hAKxoQ7ut Glnbjog aU3rRvr+KJZfYDkjFPc1Czw vdGQ+TQAwASH7gBbxPSzrYS DzzM8jXWAyV4z9MhFzOhI6D CnoJ9Ni QGWwlxeyCa99cY1iLuLkGcD 8UIjhQ5OzclV1UEBzeRVxRC nvSQZ2G33wl2U9JUYhFRPcS QJ8pGB4 jT2mqJxykdmmnDMukLmcvqK pwTdwSFotPRaiK249LFFinS kpPfM8SHoxMKYjMH98PV18g ZVxp3W4 wSE0K1StKQIjzsxpkdkfzYM 5HHUjRJCjwQ42rCBjOGoaAr 4ap7T6f158AZXvJPNedG10Z l1jgQso JXPsvNLXfT7mhdpjc7ncmjb uHePkALVuINq6CLs1LTWikF xvHsUmHXX2DpT4HSI9rCIom E2myFea tvirsO4yAts+RmVtYWxlPC9 7AX74mBVya1X1xBV7A3JyVQ WbsmjoxasahZG9MHWeYIRvs H89vAEa AGceZs2co8Z2y047BKVtPRK gjG41Sf0diAbtLIKhiNSNyD 8seilfs1hqerjyNiFqEDQrE Nh1CLe2 TRDcwCzoLzFgVZY1GkB6NMT 6yIIylQ3ibSglxausxR5gFe c+LQ1gjNvoyU2xlQ8CTL8zQ ERheSBT vKAfBJC9QI57WG18F0GfYho vdGFibGU+PHRhYmxlIHdpZH KtTBmvMTSpSyEinLdaFH7tW z0tZTVf NTNpvYnptVOqMtSka1auGJF aJPywVR4giRcfH7JftEF5YP Xqu7h4Av15X27vE6HsuBE+P GNvbCB3 cHB6fR0hHgOjOfI8EUwrQ65 2FhGmkKIdEjzft8fkp5iljY j7NmKrJLRufwYncXyzFXM6m 3XcQe69 L48gOWwoRJKvPABlNHJpOYQ ugFgpem9ecY3rHv5+PGNvbC W9jOH8cX2lXlBwUvJ8KBniH 249InRv dWHkNvwlT91bC6HnpTI+PHR sBdw8ACNeiZezNJ3tjPRqSL vpSk8qXUF3QrRkVzNlJVtmJ 3BhZGRp ifbbkiinmET0CPVzCGFwcU9 6Jy8iyOpzFd4iDOTdVOD6XX DtaIAdS0EseD8tIiVxSMAaH SIsD7Yd rTUsSPjrK605REvgRzV8UVI ilyEbB8MeDTVjdCdgIwS1d5 Y1Jl8YbWstmKLyUW6uOvNpA Fo2K0Is Krw2LSEqyJyrIQ0zhDCiWAe cWf5xeCfniSvuLF3wKWObqy iqn288YoBpf4doIITdrVZpQ GltZXM7 N51bv1S8UBMdPUEiFHM0kER 4wZ5afFfvhriauCBrlBulsk AmqIfwREiyVSdjQ598WTZvc DsnPkZJ Yib9F4ArWhp3JJYsmNqoKQ9 dkTFzYUexNx6fzCmeySdlWM 2dUSBzcfxpa171CaRrn4qtG DEwcHQg HEpiFBL6F52vh8S7BNGqZCN oGOU8cLM2xV2ioBoobxzfxS VmdDsgdmVydGljYWwtYWxpZ 246IHRv hYmgMm6RDit8O3VhWuk2IPR xpQagPB7lmTJhIDfxFz3lcA iqcRajOD8uLVGtsvrao205A hFti7fq AKDanCHxTOquJPY8J69rq8B 2PMOyRPWtGGD8hPT8fQ2wzJ lnbjogbGVmdDsgdmVydGljY WwtYWxp Y856XVXxmUhmCyQufZOyYym vdGQ+NC98ug50Z0WmUfacEw r2PORjKWZ7lMT0hD4sAXQpV Pkeq4O0 bGU9 (more content not included)... [facility] Consent for Anesthesiaon Consent for Anesthesia [id number]#1.00 CD:127 Normal [facility] Discharge Instructionson Discharge Instructions [id number]#1.00 CD:127 [facility] IntraOperative Documentson 0 08-21-2022 IntraOperative Documents [id number]#1.00 CD:127 [facility] IntraOperative Documents [id number]#1.00 CD:127 [facility] Main OR Intraoperative Recor don 08-21-2022 Main OR Intraoperative Record IntraOp Document Type FT Summary Primary Physician: Reza Proctor DO Finalized Date/Time: 08/21/22 12:38:52 Pt. Name: POORNIMA BARKER/Sex: 1975 Female Med Rec #: [id number] Physician: Reza Proctor DO Financial #: [id number] Pt. Type: A Room/Bed: [place] [address] Admit/Disch: 08/18/22 06:24:59 - 08/18/22 14:30:00 Institution: Case Times FT Entry 1 Patient Times In Room 08/18/22 09:53:00 Out Room 08/18/22 11:01:00 Procedure Times Start 08/18/22 10:18:00 Stop 08/18/22 10:57:00 Anesthesia Times Start 08/18/22 09:53:00 Stop 08/18/22 11:01:00 Block Timeout w/ 08/18/22 08:10:00 Anesthesia Last Modified By: Tuyet Morel 08/18/22 11:05:44 General Comments: BLOCK TIME OUT AT 0810 WITH AND YANNICK Franco RN ASSISTING, HEART RATE 77 AND SPO2 100% ON ROOM AIR, PATIENT TOLERATED WELL.BROOKE BRIAN. 08/21/22 Chart opened to review and send charges [facility]FA Case Attendance FT Entry 1 Entry 2 Entry 3 Case Attendee Danyel HARVEY, David Proctor DO, Reza Palacios COMMUTATOR ASSEMBLER, Erin Franco Role Performed Anesthesiologist of Surgeon - Primary COMMUTATOR ASSEMBLER/SA Record Time In 08/18/22 09:53:00 08/18/22 09:53:00 08/18/22 09:53:00 Time Out 08/18/22 11:01:00 08/18/22 11:01:00 08/18/22 11:01:00 Procedure ULNAR NERVE ULNAR NERVE ULNAR NERVE TRANSPOSITION(Left) TRANSPOSITION(Left) TRANSPOSITION(Left) Comments Last Modified By: Tuyet Morel Kelsie E Sayler, Kelsie E 08/18/22 11:05:46 08/18/22 11:05:46 08/18/22 11:05:46 Entry 4 Entry 5 Case Attendee Tuyet Morel Jessica D Role Performed Shop Teacher - Primary Scrub - Primary Time In 08/18/22 09:53:00 08/18/22 09:53:00 Time Out 08/18/22 11:01:00 08/18/22 11:01:00 Procedure ULNAR NERVE ULNAR NERVE TRANSPOSITION(Left) TRANSPOSITION(Left) Comments Last Modified By: Tuyet Morel Kelsie E 08/18/22 11:05:46 08/18/22 11:05:46 General Comments: [employer] STUDENT, SCRUBBED IN AND IN ATTENDANCE.BROOKE BRIAN. ANTONINO HUTCHISON, ARTHREX REP, IN ATTENDANCE.BROOKE BRIAN. Perioperative Protocols FT Pre-Care Text: Implements protective measures prior to operative or invasive procedure, confirms identity before the operative or invasive procedure, verifies operative procedure, surgical site, and laterality Entry 1 Procedure(s) ULNAR NERVE Patient Identity Birthday, ID Band TRANSPOSITION(Left) Verified (select at Check, Patient least 2): Participation Consents / H and P Anesthesia Consent, Operative Site Present Verified HandP, Surgery/Procedure Marking Verified Consent, Transfusion Consent Surgical Site Yes Laterality Verified Yes Verified Procedure Verified Yes Correct Patient Yes Position Verified Availability Equipment, Implant, Prep Dry Yes Verified (If Medication, X-ray Applicable) PreOp Antibiotic Yes Time Out Danyel HARVEY, David Carrillo, Given Participants Reza Proctor DO, Roth CST, Liane E, Tuyet Morel, Eri Garcia Time Out Complete 08/18/22 10:17:00 Outcomes Met? Yes Last Modified By: Tuyet Morel 08/18/22 10:24:48 Post-Care Text: The patient is free from signs and symptoms of injury caused by extraneous objects Allergy Information FT Pre-Care Text: Verifies allergies Entry 1 Allergies Reviewed? Yes Allergies Reviewed Self/Patient With Outcomes Met? Yes Last Modified By: Tuyet Morel 08/18/22 09:00:18 Post-Care Text: The patient received appropriate medication(s) safely administered during the perioperative period Surgical Procedures FT Entry 1 Entry 2 Procedure Description Procedure ULNAR NERVE TO BE DETERMINED TRANSPOSITION Modifiers Left Left Surgeon Description LEFT ELBOW OPEN LEFT ELBOW OPEN EXTENSOR DEBRIDEMENT EXTENSOR DEBRIDEMENT WITH REPAIR WITH REPAIR Primary Procedure Yes No Primary Surgeon Reza Proctor DO, DO, Jason A Start 08/18/22 10:18:00 08/18/22 10:18:00 Stop 08/18/22 10:57:00 08/18/22 10:57:00 Anesthesia Type General General Surgical Service Orthopedics Orthopedics Wound Class 1 - Clean 1 - Clean Last Modified By: Tuyet Morel Kelsie E 08/18/22 11:05:49 08/18/22 11:05:49 General Case Data FT Pre-Care Text: Classifies surgical wound, implements aseptic technique, initiates traffic control Entry 1 Case Information OR OR 4 FT Case Level Level 4 Wound Class 1 - Clean Specialty Orthopedics ASA Class 2 Preop Diagnosis LEFT ELBOW LATERAL Postop Same As Preop Yes EPICONDYLITIS Postop Diagnosis LEFT ELBOW LATERAL Outcomes Met? Yes EPICONDYLITIS Last Modified By: Erin Palacios CST 08/21/22 12:34:12 Post-Care Text: The patient is free from signs and symptoms of infection Skin Assessment (Pre Procedure) FT Pre-Care Text: Implements protective measures to prevent skin/ tissue injury due to thermal or mechanical sources Evaluates for signs and symptoms of physical injury to skin and tissue Entry 1 Skin Integrity Intact, [place], Warm, and Skin Abnormality No D (more content not included)... Normal [facility] Preoperative Documentson Preoperative Documents [id number] CD:127 Normal [facility] Consent for Treatmenton 07-27 Consent for Treatment [id number] D:127 Normal [facility] H&P Updateon 08-18-2022 H&P Update [id number] D:127 Normal [facility] Inpatient Patient Summaryon 08-18-2022 Inpatient Patient Summary [address] [address] [facility] Clinical Discharge Instructions PERSON INFORMATION Name: POORNIMA BARKER PHYSICIANS Admitting Physician: Reza Proctor DO Attending Physician: Reza Proctor DO PCP: JERAMIE HARVEY, DINESH Discharge Diagnosis: Comment: PATIENT EDUCATION INFORMATION Instructions: Ric Proctor - Upper Extremity Fracture Surgery (Custom); Post Op Patient Instructions - FT (Custom) Medication Leaflets: Follow up: MEDICATION LIST New Medications [facility] [address] [place], [place] [id number], [phone] acetaminophen-hydrocodo ne ([place] 325 mg-5 mg oral tablet) 1-2 tab(s) Oral q4hr; as needed for pain. Refills: 0. docusate (Colace 100 mg Cap) 1 Capsules By Mouth 2 times a day as needed for constipation. Refills: 0. Medications to Continue Taking That Have Changed [facility] [address] [place], [place] [id number], [phone] START: ibuprofen (ibuprofen 600 mg Tab) 1 Tablets By Mouth every 8 hours as needed as needed for pain. with food or milk. Refills: 0. Medications to Continue with No Changes Other Medications cranberry (cranberry oral capsule) esomeprazole (Nexium 40 mg Cap-EC) 1 Capsules By Mouth every day. Comment: Normal [facility] Main OR PACU I Recordon 07-27 Main OR PACU I Record PACU Phase I Docum ent Type FT Summary Primary Physician: Reza Proctor DO Finalized Date/Time: 08/18/22 13:17:16 Pt. Name: POORNIMA BARKER/Sex: 1975 Female Med Rec #: [id number] Physician: eRza Proctor DO Financial #: [id number] Pt. Type: A Room/Bed: [place] [address] Admit/Disch: 08/18/22 06:24:59 - Institution: Case Times PACU I FT Pre-Care Text: Identifies barriers to communication and implements measures to provide psychological support Develops individualized plan of care, and ensures continuity of care Maintains patient's dignity and privacy, and maintains patient confidentiality Identifies and reports philosophical, cultural, and spiritual beliefs and values Identifies individual values and wishes concerning care Implements aseptic technique, and administers prescribed antibiotic therapy and immunizing agents as ordered Evaluates postoperative tissue perfusion Implements thermoregulation measures, and monitors body temperature Evaluates postoperative respiratory status Evaluates postoperative cardiac status Evaluates postoperative neurological status Assesses pain control, collaborated in initiating patient-controlled analgesia and implements alternative methods of pain control Verifies allergies, administers prescribed medications and solutions, evaluates response to medications Entry 1 In PACU I 08/18/22 11:02:00 Discharge from PACU 08/18/22 11:58:00 I Outcomes Met? Yes Last Modified By: Luz Frederick RN 08/18/22 13:16:54 Post-Care Text: The patient demonstrates knowledge of the expected response to the operative or invasive procedure The patient's care is consistent with the individualized perioperative plan of care The patient's right to privacy is maintained The patient's value system, lifestyle, ethnicity, and culture are considered, respected, and incorporated into the perioperative plan of care The patient participates in decisions affecting his or her perioperative plan of care The patient is free from signs and symptoms of infection The patient has wound/tissue perfusion consistent with or improved from baseline levels established preoperatively The patient is at or returning to normothermia at the conclusion of the immediate postoperative period The patient's respiratory function is consistent with or improved from baseline levels established preoperatively The patient's cardiovascular status is consistent with or improved from baseline levels established preoperatively The patient's cardiovascular status is consistent with or improved from baseline levels established preoperatively The patient demonstrates and/or reports adequate pain control throughout the perioperative period The patient received appropriate medication(s), safely administered during the perioperative period Acuity Level PACU I FT Entry 1 Start Time 08/18/22 11:02:00 Stop Time 08/18/22 11:58:00 Acuity Level Acuity Level I Last Modified By: Luz Frederick RN 08/18/22 13:17:11 Finalized By: Luz Frederick RN Document Signatures Signed By: Luz Frederick RN 08/18/22 13:17 Normal [facility] Main OR PACU II Recordon Main OR PACU II Record PACU Phase II Doc ument Type FT Summary Primary Physician: Reza Proctor DO Finalized Date/Time: 08/18/22 14:50:45 Pt. Name: POORNIMA BARKER/Sex: 1975 Female Med Rec #: [id number] Physician: Reza Proctor DO Financial #: [id number] Pt. Type: A Room/Bed: [place] [address] Admit/Disch: 08/18/22 06:24:59 - Institution: Case Times PACU II FT Pre-Care Text: Identifies barriers to communication and implements measures to provide psychological support and determines knowledge level Develops individualized plan of care, and ensures continuity of care Maintains patient's dignity and privacy, and maintains patient confidentiality Identifies and reports philosophical, cultural, and spiritual beliefs and values Identifies individual values and wishes concerning care administers prescribed antibiotic therapy and immunizing agents as ordered, Evaluates postoperative tissue perfusion Implements thermoregulation measures, and monitors body temperature Evaluates postoperative respiratory status Evaluates postoperative cardiac status Evaluates postoperative neurological status Assesses pain control, collaborated in initiating patient-controlled analgesia and implements alternative methods of pain control Verifies allergies, administers prescribed medications and solutions, evaluates response to medications Entry 1 In PACU II 08/18/22 12:00:00 Discharge from PACU 08/18/22 14:30:00 II Outcomes Met? Yes Last Modified By: Dylan Mcneil 08/18/22 14:50:42 Post-Care Text: The patient demonstrates knowledge of the expected response to the operative or invasive procedure The patient's care is consistent with the individualized perioperative plan of care The patient's right to privacy is maintained The patient's value system, lifestyle, ethnicity, and culture are considered, respected, and incorporated into the perioperative plan of care The patient participates in decisions affecting his or her perioperative plan of care. The patient is free from signs and symptoms of infection The patient has wound/tissue perfusion consistent with or improved from baseline levels established preoperatively The patient is at or returning to normothermia at the conclusion of the immediate postoperative period The patient's respiratory function is consistent with or improved from baseline levels established preoperatively The patient's cardiovascular status is consistent with or improved from baseline levels established preoperatively The patient's neurological status is consistent with or improved from baseline levels established preoperatively The patient demonstrates and/or reports adequate pain control throughout the perioperative period The patient received appropriate medication(s), safely administered during the perioperative period Finalized By: Dylan Mcneil Document Signatures Signed By: Dylan Mcneil 08/18/22 14:50 Normal [facility] Main OR Preoperative Recordo n 08-18-2022 Main OR Preoperative Record PreOp Document Type FT Summary Primary Physician: Reza Proctor DO Finalized Date/Time: 08/18/22 10:25:18 Pt. Name: LUCERO POORNIMA Alejandro/Sex: 1975 Female Med Rec #: [id number] Physician: Reza Proctor DO Financial #: [id number] Pt. Type: A Room/Bed: [place] [address] Admit/Disch: 08/18/22 06:24:59 - Institution: Case Times PreOp FT Pre-Care Text: Verifies consent for planned procedure, identifies individual values and wishes concerning care, includes family members in perioperative teaching Entry 1 Patient Times. In Pre Surgery 08/18/22 06:35:00 Out Pre Surgery 08/18/22 09:51:00 Outcomes Met? Yes Last Modified By: Tuyet Morel 08/18/22 10:25:16 Post-Care Text: The patient participates in decisions affecting his or her perioperative plan of care Finalized By: Maria Teresa, Tuyet E Document Signatures Signed By: Joel Morelsie Salvador 08/18/22 10:25 Normal [facility] Monitor Recordon 08-18-2022 Monitor Record [id number] CD:127 Normal [facility] Monitor Record [id number] CD:127 Normal [facility] Operative Reporton 3 Operative Report Patient: CHIARA BARKER Age: 47 years Sex: Female : 1975 Associated Diagnoses: None Author: Reza Proctor DO DATE OF SURGERY: 08/18/2022 SURGEON: Reza Proctor D.O. CUSTOMER COMPLAINT CLERK: Erin Palacios CFA PREOPERATIVE DIAGNOSIS: Chronic extensor tendinosis, left elbow POSTOPERATIVE DIAGNOSIS: Chronic extensor tendinosis, left elbow PROCEDURE: 1. Open common extensor tendon debridement, left elbow 2. Application of short arm volar fiberglass splint ANESTHESIA: General with regional block ANESTHESIOLOGIST: David Mnotaño MD IMPLANTS: Arthrex 3.0 mm knotless suture tack anchor OPERATIVE INDICATIONS: Poornima is a 47-year-old [id number] female who has had persistent pain over the lateral aspect of the left elbow despite numerous conservative measures. Her pain affects her activities of daily living and quality of life. She agreed to proceed with the above procedure after discussion of the risks, benefits, complications, alternatives, and expectations. Please see office notes for further details. PROCEDURE IN DETAIL: The correct operative site was identified and marked in the preoperative holding area. The patient was administered intravenous antibiotics in accordance with SCIP protocol. The patient was transported to the regional block room and administered a regional anesthetic nerve block by the anesthesiologist. I requested the regional block to assist with intraoperative and postoperative pain control. The patient was transported to the operating room, placed supine on the operating room table, and administered general anesthetic. The left upper extremity was outstretched on the armboard. A well-padded tourniquet was applied to the left upper brachium. The left upper extremity was prepped and draped in the usual sterile fashion. Surgical timeout was performed with all required personnel present. The limb was exsanguinated with an Esmarch and the tourniquet was inflated to 250 mmHg. A gently curved longitudinal incision over the lateral aspect of the elbow was made. Dissection was carried down through the subcutaneous tissues. Full-thickness skin flaps were developed. The ECRL was identified and split longitudinally in line with its fibers. The diseased ECRB tendon was then visualized. The tendinopathic tissue was resected with a scalpel. Soft tissue was cleared from the lateral epicondyle with a rongeur anterior to the LCL insertion. A curette was utilized to create a bony bleeding bed. The drill guide for the anchor was placed at the prepared bed and a socket was created for the anchor. The suture tack anchor was inserted to the drill guide into the socket. A free needle was used to pass the repair suture through the split in the common extensor in a running [id number]. The distal aspect of the suture was tensioned followed by tensioning of the proximal suture. The passing suture was used to shuttle the repair suture through the anchor. The suture was tensioned for a final time creating a watertight repair. The suture was cut. The wound was irrigated. Deep subcutaneous tissue was closed with 0 Monocryl. Skin was closed with 4-0 Monocryl running subcuticular stitch followed by Steri-Strips. Dressing consisting of bacitracin, Adaptic, 4x4s, soft roll was applied. Tourniquet was deflated and adequate perfusion was noted to return to the extremity. Patient was placed into a volar wrist splint with the wrist in neutral position and a bulky dressing was applied to the entire extremity. Patient was reversed from anesthesia having tolerated the procedure well. She was transported recovery room in good condition. Sponge and needle counts were correct. No specimen, no blood loss, no complications. The case was clean and elective. Reza Proctor D.O. [facility] Comment on above: Result Comment: Elec tronically Signed By: Reza Proctor DO\.cici\Date and Time Signed: 08/18/22 15:01 EST Operative Report Patient: CHIARA BARKER Age: 47 years Sex: Female : 1975 Associated Diagnoses: None Author: David Montaño MD Procedure Nerve Block Block Type: Interscalene block. Laterality: Left. Informed consent for anesthesia management: Anesthesia options discussed including nerve block, Description of the procedure, risks, benefits, and alternatives was provided, The patient's questions were addressed. Time out: Confirmed correct patient, procedure and site. Time: Date/Time 08/18/2022 08:11:00. Indication: Block for postoperative pain management as requested by surgeon. Anesthesia Method: IV Sedation with monitored anesthesia care, The patient remained awake and able to interact in a meaningful way throughout the procedure. Preparation: The patient was placed in the following position Sitting, Continuous pulse oximetry applied, Using maximal sterile barrier technique per current [facility] guidelines including hand hygeine, Guidance (Ultrasound used to identify anatomical landmarks, Using sterile gel and probe covers, Permanent image retained), The site was prepped with ChloraPrep. Procedure: Anesthetic Agent ropivicaine 0.5 % 20 ml, Needle was inserted without pain or parasthesia in the conscious patient, Number of attempts 1, Negative attempt at aspiration for blood, Medial and lateral spread of the anesthestic was observed, Periodic negative attempts at aspiration of blood were made as the local was injected, No pain or parathesia were elicited with injection of the anesthetic in the conscious patient, It was idetified that the correct anesthetic agent was administered to the correct site. Complications: None, The patient tolerated the procedure as expected. Normal [facility] Comment on above: Result Comment: Elec tronically Signed By: Danyel HARVEY, David Carrillo\.br\Date and Time Signed: 08/18/22 08:24 EST Outpatient Surgery Discharge Instructionon 08-18-2022 Outpatient Surgery Discharge Instruction [address] [address] Patient Discharge Instructions PERSON INFORMATION Name: POORNIMA BARKER Date of : 1975 Current Date: 08/18/2022 11:57:26 PHYSICIANS Admitting Physician: Reza Proctor DO Discharge Diagnosis: POORNIMA BARKER has been given the following list of follow-up instructions, prescriptions, and patient education materials: IF UNABLE TO CONTACT YOUR PHYSICIAN AND YOU FEEL IT IS AN EMERGENCY, GO TO THE NEAREST EMERGENCY ROOM OR CALL 911 Juni POORNIMA BARKER, have received the attached patient education materials/instructions and have verbalized understanding: May we do a follow up call? Yes No I was present when discharge instructions were given Patient Signature Date Clinican/Nurse Signature _ Date Follow up: Pharmacy Information: You may receive a survey from [facility] asking you to rate your care experience. Your feedback is important and will help us understand what we do well and how we can improve the quality of care we provide to you, your loved ones and our community. It?s an honor to serve you. Thank you for choosing [facility] HERE ARE THE MEDICATION CHANGES THAT OCCURRED DURING YOUR HOSPITAL STAY New Medications Medicine [facility] [address] [facility], [place] [phone], [phone] acetaminophen-hydrocodo ne ([place] 325 mg-5 mg oral tablet) 1-2 tab(s) Oral q4hr; as needed for pain. Refills: 0. docusate (Colace 100 mg Cap) 1 Capsules By Mouth 2 times a day as needed for constipation. Refills: 0. Medications to Continue Taking That Have Changed Medicine [facility] [address] [place], [place] [id number], [phone] START: ibuprofen (ibuprofen 600 mg Tab) 1 Tablets By Mouth every 8 hours as needed as needed for pain. with food or milk. Refills: 0. Medications to Continue with No Changes Other Medications cranberry (cranberry oral capsule) esomeprazole (Nexium 40 mg Cap-EC) 1 Capsules By Mouth every day. PATIENT EDUCATION INFORMATION Instructions: [place], [place] [facility] UPPER EXTREMITY SURGERY Home Care Instructions Medications -You will be given a prescription for pain medication. Please notify the office immediately if you have any allergies or adverse reactions to pain medications, -You may have been prescribed a nonsteroidal anti-inflammatory medication (such as naproxen, meloxicam, ibuprofen). Do not take any additional NSAIDs if you were given one of these medications. About Your Surgical Site -Keep your splint clean, dry, and in place until follow up. Activity -Continue to elevate your surgical site for the next 48 hours and continue restricted use. -If your fingers are free, then you are encouraged to bend and straighten them regularly to minimize swelling and stiffness. Diet -You may resume your regular diet as tolerated. Please remember to take your pain medication with food to avoid stomach upset. -Increased liquid intake is encouraged for 48 hours after discharged home. Anesthesia Precautions -Do not operate a vehicle (automobile, bicycle, motorcycle), machinery or power tools, or drink alcohol beverages for 24 hours. -Do not drink any alcohol beverages while you are taking your pain medications. -Arrange for a responsible adult to remain with you for at least 24 hours, possibly longer. You may be drowsy and light-headed from the anesthesia and possibly from your pain medication as well. Expecations of Surgery -You may have mild to moderate discomfort for the first several days. This should gradually decrease. Any increased discomfort should be reported to the office. -Call the office with any of the following: any persistent or heavy bleeding, temperature above 101.5 degrees, increasing redness, swelling or drainage at the operative site, severe and increasing pain at the operative site, persistent vomiting. About your follow-up office visit -You will be given a card with your post-operative date and time for this appointment. Report any problems prior to that time. Driving -Driving is legal, but you must be able to maintain control of your car at all times. Driving too soon, you are considered an impaired driver trainee, and this could be a problem. It is therefore advised not to drive until after your first office visit following surgery. Do not drive while taking pain medication. ____ Reza Proctor, DO [facility] [address] [place], [place] [address] Reviewed: (Inserted I (more content not included)... Normal [facility] Patient Education - Texton 0 08-18-2022 Patient Education - Text [place], [place] [facility] UPPER EXTREMITY SURGERY Home Care Instructions Medications -You will be given a prescription for pain medication. Please notify the office immediately if you have any allergies or adverse reactions to pain medications, -You may have been prescribed a nonsteroidal anti-inflammatory medication (such as naproxen, meloxicam, ibuprofen). Do not take any additional NSAIDs if you were given one of these medications. About Your Surgical Site -Keep your splint clean, dry, and in place until follow up. Activity -Continue to elevate your surgical site for the next 48 hours and continue restricted use. -If your fingers are free, then you are encouraged to bend and straighten them regularly to minimize swelling and stiffness. Diet -You may resume your regular diet as tolerated. Please remember to take your pain medication with food to avoid stomach upset. -Increased liquid intake is encouraged for 48 hours after discharged home. Anesthesia Precautions -Do not operate a vehicle (automobile, bicycle, motorcycle), machinery or power tools, or drink alcohol beverages for 24 hours. -Do not drink any alcohol beverages while you are taking your pain medications. -Arrange for a responsible adult to remain with you for at least 24 hours, possibly longer. You may be drowsy and light-headed from the anesthesia and possibly from your pain medication as well. Expecations of Surgery -You may have mild to moderate discomfort for the first several days. This should gradually decrease. Any increased discomfort should be reported to the office. -Call the office with any of the following: any persistent or heavy bleeding, temperature above 101.5 degrees, increasing redness, swelling or drainage at the operative site, severe and increasing pain at the operative site, persistent vomiting. About your follow-up office visit -You will be given a card with your post-operative date and time for this appointment. Report any problems prior to that time. Driving -Driving is legal, but you must be able to maintain control of your car at all times. Driving too soon, you are considered an impaired driver trainee, and this could be a problem. It is therefore advised not to drive until after your first office visit following surgery. Do not drive while taking pain medication. ____ Reza Proctor, DO [facility] [address] [place] [address] Reviewed: [facility] Progress Note-Physicianon Progress Note-Physician Patient: POORNIMA BARKER Age: 47 years Sex: Female : 1975 Associated Diagnoses: None Author: David Montaño MD Postoperative Information Postoperative disposition: Postoperative disposition: To PACU. Optimetrix number: Optimetrix number [id number]. Anesthetic utilized: General. Regional: adductor canal block. Health Status Problem list: All Problems Acid reflux / SNOMED CT 199689444 / Confirmed Endometriosis / SNOMED CT 862939787 / Confirmed History of seizures / SNOMED CT 5467712775 / Confirmed Migraines / SNOMED CT 83909574 / Confirmed Pseudotumor cerebri / SNOMED CT 614685393 / Confirmed Smoker / SNOMED CT 068446722 / Confirmed Added secondary to documentation in Social History. Physical Examination Vital Signs 08/18/2022 11:02 EST Temperature Axillary 36.2 DegC Heart Rate Monitored 89 bpm Respiratory Rate Monitored 21 br/min Systolic Blood Pressure 116 mmHg Diastolic Blood Pressure 88 mmHg Mean Arterial Pressure, Cuff 97 mmHg SpO2 96 % Pain Assessment: Controlled. General: Awake, Alert, Appropriate. Respiratory: Adequate air exchange. Cardiovascular: Stable. Neurological: Normal sensory function, Normal motor function. Assessment Anesthetic outcome No anesthetic complications noted. Review / Management Condition: Stable. Plan Transfer/Discharge: Transfer/Discharge Discharge when meets criteria ( From PACU to Ambulatory Surgery Unit, and To home ). [facility] Comment on above: Result Comment: Elec tronically Signed By: David Montaño MD\.br\Date and Time Signed: 08/18/22 16:43 EST Progress Note-Physician Patient: POORNIMA BARKER Age: 47 years Sex: Female : 1975 Associated Diagnoses: None Author: David Montaño MD Preoperative Information Anesthesia history: Patient history: None. Family history+: None. Anesthesia results: Reviewed Results: Anesthesia results from flowsheet . Informed consent: Signed by patient. Including risks, benefits, and alternatives related to the: Anesthetic plan, Postoperative pain management plan. Re-evaluation prior to induction: David Montaño MD. Initial evaluation reviewed: No significant change. Review of Systems Eye: Negative. Ear/Nose/Mouth/Throat: Negative. Respiratory: Negative. Cardiovascular: Negative. Gastrointestinal: Negative. Genitourinary: Negative. Hematology/Lymphatics: Negative. Endocrine: Negative. Musculoskeletal: Negative except as documented in history of present illness. Neurologic: Negative except as documented in history of present illness. Health Status Allergies: Allergic Reactions (Selected) Severity Not Documented Sulfa drugs- Respiratory failure., Allergies (1) Active Reaction sulfa drugs Respiratory failure Current medications: (Selected) Inpatient Medications Ordered HYDROmorphone 1 mg/mL injectable solution: 0.2 mg = 0.2 mL, Injection, IV Push, q2min PRN Pain for 10 dose(s), Stop date Limited # of times, Routine, Start date 08/18/22 6:42:00 EST, 08/18/22 6:42:00 EST Lactated Ringers IV Inessa 1000 mL 1,000 mL: 1,000 mL, IV, 100 mL/hr, Routine, Start date 08/18/22 6:42:00 EST, 10 hour(s), Total volume (mL): 1,000, 91.2 kg, 2.03, m2 Lactated Ringers IV Inessa 1000 mL 1,000 mL: 1,000 mL, IV, 150 mL/hr, Routine, Start date 08/18/22 6:30:00 EST, 6.7 hour(s), Total volume (mL): 1,000, 91.2 kg, 2.03, m2 Phenergan 25 mg/mL Injection: 12.5 mg = 0.5 mL, Injection, IV Push, q2min PRN Other (see comment) for 2 dose(s), Stop date Limited # of times, Routine, Start date 08/18/22 6:42:00 EST, 08/18/22 6:42:00 EST famotidine 10 mg/mL IV Inessa: 20 mg = 2 mL, Soln-IV, IV Push, Once, Stop date 08/18/22 7:00:00 EST, Routine, Start date 08/18/22 7:00:00 EST, 08/18/22 6:30:00 EST Documented Medications Documented Nexium 40 mg Cap-EC: 40 mg = 1 cap(s), Oral, Daily, Refills(s) 0, Gas cranberry oral capsule: See Instructions, Refill(s) 0, Prophylaxis ibuprofen 600 mg Tab: 600 mg = 1 tab(s), Oral, q6hr, PRN as needed for pain, Refills(s) 0, Home Medications (3) Active cranberry oral capsule See Instructions ibuprofen 600 mg Tab 600 mg = 1 tab(s), PRN, Oral, q6hr Nexium 40 mg Cap-EC 40 mg = 1 cap(s), Oral, Daily , Medications (5) Active Scheduled: (1) famotidine 10 mg/mL IV Inessa [F] 20 mg 2 mL, IV Push, Once Continuous: (2) Lactated Ringers 1,000 mL 1,000 mL, IV, 150 mL/hr Lactated Ringers 1,000 mL 1,000 mL, IV, 100 mL/hr PRN: (2) HYDROmorphone 1 mg/mL SOLN [F] 0.2 mg 0.2 mL, IV Push, q2min promethazine 25 mg/mL Inj [F] 12.5 mg 0.5 mL, IV Push, q2min Problem list: All Problems Acid reflux / SNOMED CT 943863304 / Confirmed Endometriosis / SNOMED CT 531299333 / Confirmed History of seizures / SNOMED CT 6702767275 / Confirmed Migraines / SNOMED CT 27834489 / Confirmed Pseudotumor cerebri / SNOMED CT 504379721 / Confirmed Smoker / SNOMED CT 113758231 / Confirmed Added secondary to documentation in Social History., Active Problems (6) Acid reflux Endometriosis History of seizures Migraines Pseudotumor cerebri Smoker Histories Past Medical History: No active or resolved past medical history items have been selected or recorded. Family History: No family history items have been selected or recorded. Procedure history: Cholecystectomy (79247471). History of total hysterectomy (3300925679). Excision of cyst on neck (9378539232). Excision of cyst bilat ovaries (2361547439). Colonoscopy (325162205). Procedure on brain ventricular shunt (0487535429). Social History Social & Psychosocial Habits Alcohol 08/08/2022 Risk Assessment: Denies Alcohol Use Substance Abuse 08/08/2022 Risk Assessment: Denies Substance Abuse Tobacco 08/08/2022 Risk Assessment: Medium Risk 08/08/2022 Tobacco Use: 5-9 cigarettes (between 1 Type: Cigarettes . Physical Examination Vital Signs 08/18/2022 6:40 EST Heart Rate Monitored 88 bpm SpO2 95 % 08/18/2022 6:40 EST Systolic Blood Pressure 106 mmHg Diastolic Blood Pressure 72 mmHg Mean Arterial Pressure, Monitered 83 mmHg 08/18/2022 6:39 EST Heart Rate Monitored 93 bpm SpO2 95 % 08/18/2022 6:39 EST Temperature Axillary 36.7 DegC 08/18/2022 6:38 EST Systolic Blood Pressure 113 mmHg Diastolic Blood Pressure 75 mmHg Mean Arterial Pressure, Monitered 87 mmHg Vital Signs (last 24 hrs) Last Charted Temp Axillary 36.7 DegC (AUG 18 06:39) SBP 106 mmHg (AUG 18 06:40) DBP 72 mmHg (AUG 18 06:40) SpO2 95 % (AUG 18 06:40) Measurements from flowsheet : Measurements 08/18/2022 6:36 EST Height (more content not included)... Normal [facility] Comment on above: Result Comment: Elec tronically Signed By: Danyel HARVEY, David Carrillo\.br\Date and Time Signed: 08/18/22 06:50 EST Consent for Procedure/Surger yon 08-17-2022 Consent for Procedure/Surgery [id number]#1.00C D:127 Normal [facility] Physician Orderon 08-16-2022 Physician Order [id number]#[id number] 0CD:127 Normal [facility] BUNon 08-08-2022 Urea nitrogen [Mass/Vol] 10 mg/dL Normal 5-21 [facility] Comment on above: Performed By: #### 2 444557, 2101194, 33556008, 4105838, 2858684, 1185926 ####[facility] [address] [place] [address] CBC w/Indiceson 08-08-2022 Erythrocyte distribution width (RBC) [Ratio] 14.8 % High 10.9-14.2 [facility] Comment on above: Performed By: #### 2 637218, 4107473, 09292988, 1661151, 3553269, 3809192 ####[facility] [address] [place] [address] Hematocrit (Bld) [Volume fraction] 38.8 % Normal 34.0-46.0 [facility] Comment on above: Performed By: #### 2 161209, 2395085, 26471579, 1959956, 1968081, 1504214 ####[facility] [address] [place] [address] Hemoglobin (Bld) [Mass/Vol] 12.9 g/dL Normal 12.0-16.0 [facility] Comment on above: Performed By: #### 2 287352, 2741139, 33792323, 5235552, 7506301, 9524351 ####[facility] [address] [place] [address] MCH (RBC) [Entitic mass] 29.3 pg Normal 27.0-34.0 [facility] Comment on above: Performed By: #### 2 316676, 3082782, 93427453, 0531321, 6052682, 1857734 ####[facility] [address] [place] [address] MCHC (RBC) [Mass/Vol] 33.4 g/dL Normal 31.4-36.0 [facility] Comment on above: Performed By: #### 2 471625, 7510644, 37361061, 3604010, 0498199, 1499890 ####[facility] [address] [place] [address] MCV (RBC) [Entitic vol] 87.7 fL Normal 80.0-100.0 [facility] Comment on above: Performed By: #### 2 602077, 0912027, 54646572, 8481617, 0158377, 8185520 ####[facility] [address] [place] [address] Platelet mean volume (Bld) [Entitic vol] 8.3 fL Normal 6.4-10.8 [facility] Comment on above: Performed By: #### 2 207225, 8052037, 21410396, 7019477, 6516405, 1848567 ####[address] [address] Platelets (Bld) [#/Vol] 278.0 E9/L Normal 150.0-500.0 [facility] Comment on above: Performed By: #### 2 915411, 8913355, 34259523, 8766200, 8851639, 9446087 ####[address] [place] [address] RBC (Bld) [#/Vol] 4.4 E12/L Normal 4.3-5.9 [facility] Comment on above: Performed By: #### 2 186085, 1783906, 08456014, 0750610, 5466913, 9883505 ####[address] [place] [address] WBC corrected for nucl RBC Auto (Bld) [#/Vol] 10.7 E9/L Normal 4.0-11.0 [facility] Comment on above: Performed By: #### 2 148675, 1053502, 38550710, 5241677, 5793856, 0822193 ####[facility] [address] [place] [address] CHEMISTRYOrdered By: SYSTEM SYSTEM on 08-08-2022 Anion gap [Moles/Vol] 12 mmol/L Normal 6 - 16 mEq/L [facility] Remisol Chloride [Moles/Vol] 108 mmol/L Normal 101 - 1 11 mmol/L [facility] Remisol CO2 [Moles/Vol] 26 mmol/L Normal 21 - 31 mmol/L [facility] Remisol Creatinine [Mass/Vol] 0.9 mg/dL Normal 0.5 - 1.3 mg/dL [facility] Remisol GFR/1.73 sq M.predicted among blacks MDRD (S/P/Bld) [Vol rate/Area] mL/min/1.73 m2 Normal >=59mL/min/[address] [facility] Chem S GFR/1.73 sq M.predicted among non-blacks MDRD (S/P/Bld) [Vol rate/Area] mL/min/1.73 m2 Normal >=59mL/min/[address] [facility] Chem S Glucose [Mass/Vol] 96 mg/dL Normal 55 - 199 mg/dL [facility] Remisol Potassium [Moles/Vol] 3.6 mmol/L Normal 3.5 - 5.3 mmol/L [facility] Remisol Sodium [Moles/Vol] 142 mmol/L Normal 135 - 145 mmol/L [facility] Remisol Urea nitrogen [Mass/Vol] 10 mg/dL Normal 5 - 21 mg/dL [facility] Remisol Consent for Treatmenton 07-26 Consent for Treatment [id number] D:127 Normal [facility] Creatinineon 08-08-2022 Creatinine [Mass/Vol] 0.9 mg/dL Normal 0.5-1.3 [facility] Comment on above: Performed By: #### 2 554073, 1713348, 52323989, 4293826, 8645692, 2039820 ####[facility] [address] [place] [address] Glucoseon 08-08-2022 Glucose [Mass/Vol] 96 mg/dL Normal 55-199 [facility] Comment on above: Performed By: #### 2 043246, 0898449, 67205122, 9126147, 6607791, 2006531 ####[facility] [address] [place] [address] HEMATOLOGYOrdered By: Carlos Humphrey on 08-08-2022 Erythrocyte distribution width (RBC) [Ratio] 14.8 % High 10.9 - 14.2 % [facility] Hematocrit (Bld) [Volume fraction] 38.8 % Normal 34.0 - 46.0 % [facility] Hemoglobin (Bld) [Mass/Vol] 12.9 g/dL Normal 12.0 - 16.0 gm/dL [facility] MCH (RBC) [Entitic mass] 29.3 pg Normal 27.0 - 34.0 pg [facility] MCHC (RBC) [Mass/Vol] 33.4 g/dL Normal 31.4 - 36.0 gm/dL [facility] MCV (RBC) [Entitic vol] 87.7 fL Normal 80.0 - 100.0 fL [facility] Platelet mean volume (Bld) [Entitic vol] 8.3 fL Normal 6.4 - 10.8 fL [facility] Platelets (Bld) [#/Vol] 278.0 E9/L Normal 150.0 - 500.0 E9/L [facility] RBC (Bld) [#/Vol] 4.4 E12/L Normal 4.3 - 5.9 E12/L [facility] WBC corrected for nucl RBC Auto (Bld) [#/Vol] 10.7 E9/L Normal 4.0 - 11.0 E9/L [facility] Lyteson 08-08-2022 Anion gap [Moles/Vol] 12 mmol/L Normal 6-16 [facility] Comment on above: Performed By: #### 2 796596, 7683573, 03073477, 7784781, 8773209, 3626594 ####[facility] [address] [place] [address] Chloride [Moles/Vol] 108 mmol/L Normal 101-111 [facility] Comment on above: Performed By: #### 2 196461, 9928792, 51802065, 6263031, 3192519, 2487190 ####[facility] [address] [place] [address] CO2 [Moles/Vol] 26 mmol/L Normal 21-31 [facility] Comment on above: Performed By: #### 2 672149, 3757270, 92292811, 9012207, 3571967, 2234834 ####[facility] [address] [place] [address] Potassium [Moles/Vol] 3.6 mmol/L Normal 3.5-5.3 [facility] Comment on above: Performed By: #### 2 945131, 1515056, 44014311, 5104894, 1117672, 1160732 ####[facility] [address] [place] [address] Sodium [Moles/Vol] 142 mmol/L Normal 135-145 [facility] Comment on above: Performed By: #### 2 084765, 3202725, 48933962, 1223419, 2007305, 5576961 ####[facility] [address] [place] [address] XR Chest 2 Viewson 3 XR Chest 2 Views Exam Date/Time: 08/08/2022 16:00 EST Reason for Exam: pre op Report IMPRESSION: There are no acute cardiopulmonary changes. CLINICAL HISTORY: pre op TECHNIQUE: AP chest x-ray COMPARISON: FINDINGS: There is ventriculoperitoneal shunt tubing along the right side of the chest. The cardiomediastinal silhouette is unremarkable. The lungs are free of infiltrates effusions or consolidations. There are no acute osseous changes. Ordering Provider: Deep Devries FINAL REPORT Dictated: 08/08/2022 5:00 pm Todd Buenrostro MD, V. Signed (Electronic Signature): 08/08/2022 5:00 pm Signed by: Todd Buenrostro MD, V. Transcribed by: CANDELARIA Technologist: ORB Normal [facility] eGFRon 08-08-2022 GFR/1.73 sq M.predicted among blacks MDRD (S/P/Bld) [Vol rate/Area] mL/min/{1.73_m2} Normal >=59 [facility] Comment on above: Order Comment: Order added by Discern Expert. Result Comment: eGFR is race adjusted. AA=. Performed By: #### 2 580158, 6994193, 19755041, 7613894, 5577075, 0473811 ####[facility] [address] [place] [address] GFR/1.73 sq M.predicted among non-blacks MDRD (S/P/Bld) [Vol rate/Area] mL/min/{1.73_m2} Normal >=59 [facility] Comment on above: Order Comment: Order added by Discern Expert. Result Comment: Operations Executive reginaldo kidney disease could be indicated at eGFR's of less than 60 mL/min/1.73m2. Kidney failure is indicated at less than 15 mL/min/1.73m2. Performed By: #### 2 180697, 4810010, 04923040, 6124667, 8043002, 4907675 ####[facility] [address] [place] [address] CT HEAD WO CONon 10-31-2021 CT HEAD WO CON EXAMINATION: CT HEAD WO CON HISTORY: Benign intracranial hypertension ; acute headache COMPARISON: No relevant comparison available. TECHNIQUE: Axial CT images were obtained without IV contrast. Dose reduction techniques were achieved by using automated exposure control and/or adjustment of mA and/or kV according to patient size and/or use of iterative reconstruction technique. FINDINGS: BRAIN: No edema, hemorrhage, mass, acute infarction, or inappropriate atrophy. CSF SPACES: Intraventricular shunt catheter entering through right frontal lobe with tip in anterior left lateral ventricle. No hydrocephalus, subarachnoid hemorrhage, or mass. Appropriate for age. SKULL: No fracture, mass, or other significant visible lesion. SINUSES: No significant mucosal thickening or fluid on the limited views. ORBITS: No appreciable abnormality on the limited views. OTHER: Negative IMPRESSION: 1. No intracranial hemorrhage, mass, or suspicious findings. 2. Intraventricular shunt catheter without appreciable acute abnormality. No hydrocephalus. Electronically authenticated by: ROSANNE PERKINS Date: 2021-10-31 14:25 Normal [facility] XR CHEST 1 Von 10-21-2021 XR CHEST 1 V EXAM: XR CHEST 1 V HISTORY: Benign intracranial hypertension EXAM: XR CHEST 1 V INDICATION: 46 years old Female Benign intracranial hypertension COMPARISON: None. FINDINGS: The cardiac silhouette is normal. There is no pulmonary edema. The lungs are clear. There is no pneumonia. There is no pneumothorax. There is no abnormal foreign body. IMPRESSION: There is no acute abnormality. Electronically authenticated by: ЕЛЕНА ROBERT Date: 2021-10-21 15:50 Normal [facility] XR KUB 1 VIEWon 10-21-2021 XR KUB 1 VIEW EXAM: XR KUB 1 VIEW, XR SKULL LESS THAN 4 VIEWS Clinical Indication: Benign intracranial hypertension Comparison: None FINDINGS: Images of the skull shows a right-sided JAVA PERFORMANCE ENGINEER shunt tube, coursing along the right side of the neck and chest into the right side of the abdomen The supine and upright views of the abdomen shows a non-obstructive bowel gas pattern. There is no abnormal dilatation of bowel loops. No significant air fluid levels. There is no pneumoperitoneum. Right-sided J[employer] PERFORMAN[employer] ENGINEER shunt is seen, with the tip in the area of the bladder. Cholecystectomy changes are seen. There are no clinically significant osseous abnormalities noted. IMPRESSION: Unremarkable abdominal series The shunt tube begins in the right cerebral hemisphere, and terminates in the pelvis. No obvious discontinuity or kink SL: [id number] Electronically authenticated by: ЕЛЕНА ROBERT Date: 2021-10-21 16:49 Normal [facility] Vital Signs Date Time Vital Sign Value Performing Clinician Facility 03-28-2024 09:08-0400 Body height 154.94 cm MD Dinesh Bobo Work Phone: [facility] 03-28-2024 09:08-0400 Body mass index (BMI) [Ratio] 34 kg/m2 MD Dinesh Bobo Work Phone: [facility] 03-28-2024 09:08-0400 Body weight 81.64 kg MD Dinesh Bobo Work Phone: [facility] 01-07-2024 13:41-0400 Diastolic blood pressure 53 mm[Hg] MD Dinesh Bobo Work Phone: [facility] 01-07-2024 13:41-0400 Heart rate 64 /min MD Dinesh Bobo Work Phone: [facility] 01-07-2024 13:41-0400 Respiratory rate 16 /min MD Dinesh Bobo Work Phone: [facility] 01-07-2024 13:41-0400 SaO2% (BldA) [Mass fraction] 100 % MD Dinesh Bobo Work Phone: [facility] 01-07-2024 13:41-0400 Systolic blood pressure 94 mm[Hg] MD Dinesh Bobo Work Phone: [facility] 01-07-2024 11:34-0400 Body height 154.94 cm MD Dinesh Bobo Work Phone: [facility] 01-07-2024 11:34-0400 Body weight 82.1 kg MD Dinesh Bobo Work Phone: [facility] 12-13-2023 13:10-0400 Body height 152.4 cm MD Dinesh Bobo Work Phone: [facility] 12-13-2023 13:10-0400 Body mass index (BMI) [Ratio] 36.3 kg/m2 MD Dinesh Bobo Work Phone: [facility] 12-13-2023 13:10-0400 Body weight 84.36 kg MD Dinesh Bobo Work Phone: [facility] 10-19-2023 11:28-0400 Diastolic blood pressure 60 mm[Hg] MD Dinesh Bobo Work Phone: [facility] 10-19-2023 11:28-0400 Heart rate 55 /min MD Dinesh Bobo Work Phone: [facility] 10-19-2023 11:28-0400 Respiratory rate 16 /min MD Dinesh Bobo Work Phone: [facility] 10-19-2023 11:28-0400 SaO2% (BldA) [Mass fraction] 96 % MD Dinesh Bobo Work Phone: [facility] 10-19-2023 11:28-0400 Systolic blood pressure 96 mm[Hg] MD Dinesh Bobo Work Phone: [facility] 10-19-2023 09:21-0400 Body height 152.4 cm MD Dinesh Bobo Work Phone: [facility] 10-19-2023 09:21-0400 Body weight 84.36 kg MD Dinesh Bobo Work Phone: [facility] 10-03-2023 10:40-0400 Body height 158.75 cm [facility] 10-03-2023 10:40-0400 Body mass index (BMI) [Ratio] 34 kg/m2 [facility] 10-03-2023 10:40-0400 Body weight 85.72 kg [facility] 09-07-2023 11:27-0400 Body height 158.75 cm [facility] 09-07-2023 11:27-0400 Body mass index (BMI) [Ratio] 34 kg/m2 [facility] 09-07-2023 11:27-0400 Body weight 85.84 kg [facility] 09-07-2023 11:27-0400 Diastolic blood pressure 70 mm[Hg] [facility] 09-07-2023 11:27-0400 Heart rate 78 /min [facility] 09-07-2023 11:27-0400 Systolic blood pressure 106 mm[Hg] [facility] 06-29-2023 09:45-0500 Body height 158.75 cm Dinesh Bobo Other [facility] 06-29-2023 09:45-0500 Body mass index (BMI) [Ratio] 34.19 kg/m2 Dinesh Bobo Other [employer] Other 06-29-2023 09:45-0500 Body weight 86.18 kg Dinesh Bobo Other [facility] 06-29-2023 09:45-0500 Diastolic blood pressure 70 mm[Hg] Dinesh Bobo Other [facility] 06-29-2023 09:45-0500 Systolic blood pressure 101 mm[Hg] Dinesh Bobo Other [facility] 08-18-2022 14:08-0500 Heart rate 65 /min [facility] 08-18-2022 14:08-0500 SaO2% (BldA) [Mass fraction] 95 % Reza Brown [facility] 08-18-2022 14:08-0500 Diastolic blood pressure 73 mm[Hg] Reza Brown [facility] 08-18-2022 14:08-0500 Mean blood pressure 85 mm[Hg] [facility] [place] [facility] 08-18-2022 14:08-0500 Systolic blood pressure 110 mm[Hg] Reza Brown [facility] 08-18-2022 14:08-0500 Respiratory rate 18 /min Reza Brown [facility] 08-18-2022 13:04-0500 Heart rate 71 /min Reza Brown [facility] 08-18-2022 13:04-0500 SaO2% (BldA) [Mass fraction] 92 % Reza Brown [facility] 08-18-2022 12:10-0500 SaO2% (BldA) [Mass fraction] 94 % Reza Brown [facility] 08-18-2022 12:06-0500 Heart rate 75 /min Reza Brown [facility] 08-18-2022 12:05-0500 Respiratory rate 18 /min Reza Brown [facility] 08-18-2022 12:04-0500 Diastolic blood pressure 70 mm[Hg] Re[facility] [place] [facility] 08-18-2022 12:04-0500 Mean blood pressure 80 mm[Hg] Reza Brown [facility] 08-18-2022 12:04-0500 Systolic blood pressure 101 mm[Hg] Reza Brown [facility] 08-18-2022 12:04-0500 Body temperature 97.52 [degF] Reza Brown [facility] 08-18-2022 11:55-0500 Body temperature 97.7 [degF] Reza Brown [facility] 08-18-2022 11:55-0500 Diastolic blood pressure 66 mm[Hg] Reza Brown [facility] 08-18-2022 11:55-0500 Mean blood pressure 74 mm[Hg] Reza Brown [facility] 08-18-2022 11:55-0500 Respiratory rate 12 /min Reza Brown [facility] 08-18-2022 11:55-0500 Systolic blood pressure 90 mm[Hg] Reza Brown [facility] 08-18-2022 11:45-0500 Mean blood pressure 79 mm[Hg] Reza Brown [facility] 08-18-2022 11:45-0500 Respiratory rate 16 /min Reza Brown [facility] 08-18-2022 11:30-0500 Mean blood pressure 83 mm[Hg] Reza Brown [facility] 08-18-2022 11:30-0500 Respiratory rate 12 /min Reza Brown [facility] 08-18-2022 11:02-0500 Body temperature 97.16 [degF] Reza Brown [facility] 08-18-2022 10:55-0500 Respiratory rate 10 /min Reza Proctor [employer] [facility] 08-18-2022 06:40-0500 Mean blood pressure 83 mm[Hg] Reza Proctor [facility] 08-18-2022 06:40-0500 Blood Pressure Location Reza Proctor [employer] [facility] 08-18-2022 06:40-0500 Heart rate 88 /min Reza Proctor [employer] [facility] 08-18-2022 06:39-0500 Body temperature 98.06 [degF] Reza Proctor [employer] [facility] 08-18-2022 06:38-0500 Blood Pressure Location Reza Proctor [employer] [facility] 08-16-2022 09:15-0500 Body height 158.75 cm Dinesh Bobo Other [employer] Other 08-16-2022 09:15-0500 Body mass index (BMI) [Ratio] 35.45 kg/m2 Dinesh Bobo Other [employer] Other 08-16-2022 09:15-0500 Body weight 89.36 kg Dinesh Bobo Other [employer] Other 08-16-2022 09:15-0500 Diastolic blood pressure 68 mm[Hg] Dinesh Bobo Other [employer] Other 08-16-2022 09:15-0500 SaO2% (BldA) [Mass fraction] 97 % Dinesh Bboo Other [employer] Other 08-16-2022 09:15-0500 Systolic blood pressure 108 mm[Hg] Dinesh Bobo Other [employer] Other 08-08-2022 15:39-0500 Diastolic blood pressure 77 mm[Hg] Re[facility] [place] [facility] 08-08-2022 15:39-0500 Heart rate 71 /min Re[facility] [place] [facility] 08-08-2022 15:39-0500 Mean blood pressure 90 mm[Hg] Reza [place] [facility] 08-08-2022 15:39-0500 Systolic blood pressure 117 mm[Hg] Reza [place] [facility] 08-08-2022 15:39-0500 Heart rate 77 /min Re[facility] [place] [facility] 08-08-2022 15:39-0500 SaO2% (BldA) [Mass fraction] 100 % Reza [place] [facility] 08-08-2022 15:38-0500 Diastolic blood pressure 81 mm[Hg] Reza Proctor [facility] 08-08-2022 15:38-0500 Mean blood pressure 98 mm[Hg] Reza Proctor [facility] 08-08-2022 15:38-0500 Systolic blood pressure 133 mm[Hg] Reza [place] [facility] 08-08-2022 15:38-0500 Respiratory rate 16 /min Re[facility] [place] [facility] 11-15-2021 11:00-0400 Body height 158.75 cm eSb Bobo Other [employer] Other 11-15-2021 11:00-0400 Body mass index (BMI) [Ratio] 33.83 kg/m2 Seb Bobo Other [employer] Other 11-15-2021 11:00-0400 Body weight 85.28 kg Seb Bobo Other [facility] [employer] Other Encounters Encounter Date Encounter Type Care Provider Facility Start: 03-28-2024 End: 03-28-2024 ambulatory Dinesh Bobo Facility:[facility] Start: 03-28-2024 End: 03-28-2024 Patient encounter procedure MD Dinesh Bobo Work Phone: [facility] Work Phone: Start: 03-12-2024 End: 03-12-2024 Nursing evaluation of patient and report Breath Test [facility] Work Phone: [facility] Comment on above: Diarrhea, unspecifie d type (Primary Dx) Start: 01-07-2024 Non-patient / Non-visit MD Lillian Bobo Work Phone: [facility] Work Phone: Start: 01-07-2024 End: 01-07-2024 Admission to same day surgery center MD Dinesh Bobo Work Phone: [facility] Work Phone: Start: 01-07-2024 End: 01-07-2024 ambulatory MD Dinesh Bobo Work Phone: [facility] Work Phone: Start: 12-13-2023 End: 12-13-2023 Patient encounter procedure MD Dinesh Bobo Work Phone: [facility] Work Phone: Start: 11-07-2023 Non-patient / Non-visit MD Lillian Bobo Work Phone: [facility] [employer] Work Phone: Start: 11-02-2023 End: 11-02-2023 Patient encounter procedure MD Dinesh Bobo Work Phone: [facility] [place] Work Phone: Start: 11-02-2023 End: 11-02-2023 ambulatory MD Dinesh Bobo Work Phone: [facility] Work Phone: Start: 10-24-2023 Non-patient / Non-visit MD Lillian Bobo Work Phone: [facility] Work Phone: Start: 10-22-2023 Non-patient / Non-visit MD Lillian Bobo Work Phone: [facility] Work Phone: Start: 10-19-2023 Non-patient / Non-visit MD Lillian Bobo Work Phone: [facility] Work Phone: Start: 10-19-2023 End: 10-19-2023 Admission to same day surgery center MD Dinesh Bobo Work Phone: [facility] Work Phone: Start: 10-19-2023 End: 10-19-2023 ambulatory MD Dinesh Bobo Work Phone: [facility] Work Phone: Start: 10-03-2023 End: 10-03-2023 ambulatory [facility] Work Phone: Start: 10-03-2023 End: 10-03-2023 Patient encounter procedure [facility] Work Phone: Start: 09-07-2023 End: 09-07-2023 ambulatory [facility] Work Phone: Start: 09-07-2023 End: 09-07-2023 Patient encounter procedure [facility] Work Phone: Start: 08-14-2023 Non-patient / Non-visit [facility] Work Phone: Start: 07-17-2023 End: 07-17-2023 ambulatory Dinesh Jeramie Other [facility] Other Start: 07-17-2023 Telephone encounter Dinesh Bobo [facility] Start: 06-29-2023 End: 06-29-2023 ambulatory Dinesh Jeramie Other [facility] Other Start: 06-29-2023 Office outpatient vi sit 15 minutes Dinesh Jeramie [facility] Start: 06-29-2023 End: 06-29-2023 Patient encounter procedure [facility] Work Phone: Start: 10-11-2022 End: 02-26-2023 ambulatory Reza Proctor Facility:[facility] Start: 10-11-2022 End: 02-25-2023 Recurring Reza Proctor [facility] Start: 08-23-2022 End: 08-23-2022 ambulatory Dinesh Jeramie Other [facility] Other Start: 08-23-2022 Telephone encounter Dinesh Bobo [facility] Start: 08-21-2022 End: 08-21-2022 ambulatory Dinesh Jeramie Other [facility] Other Start: 08-21-2022 Telephone encounter Dinesh Bobo [facility] Start: 08-18-2022 End: 08-18-2022 ambulatory Reza Proctor Facility:[facility] Start: 08-18-2022 End: 08-18-2022 Admission to same day surgery center Reza Proctor [facility] Start: 08-16-2022 End: 08-16-2022 ambulatory Dinesh Bobo Other [facility] Other Start: 08-16-2022 Office outpatient vi sit 15 minutes Dinesh Bobo [facility] Start: 08-14-2022 End: 08-15-[address] DINESH BOBO Facility:[facility] Start: 08-08-2022 End: 08-09-2022 ambulatory Reza Proctor Facility:[facility] Start: 08-08-2022 End: 08-08-2022 Patient encounter procedure Reza Proctor [facility] Start: 01-23-2022 End: 02-18-[address] DINESH BOBO Facility:[facility] Start: 01-12-2022 End: 01-13-[address] DINESH BOBO Facility:[facility] Start: 01-09-2022 Gynecological examination normal Dinesh Bobo Other [facility] Other Start: 11-15-2021 End: 11-15-2021 ambulatory Seb Bobo Other [facility] Other Start: 11-15-2021 Office outpatient ne w 30 minutes Seb Bobo [facility] Start: 10-31-2021 End: 11-01-[address] DINESH BOBO Facility:[facility] Start: 10-21-2021 End: 10-22-[address] DINESH BOBO Facility:[facility] Procedures Date Procedure Procedure Detail Performing Clinician Start: 03-28-2024 Supine abdominal X-ray MD Dinesh Bobo Work Phone: Start: 01-07-2024 Flexible fiberoptic sigmoidoscopy MD Lillian Bobo Work Phone: Start: 11-07-2023 E coli Shiga Toxin EIA MD Dinesh Bobo Work Phone: Start: 11-07-2023 Salmonella/Shigella Screen MD Dinesh Johnson un Work Phone: Start: 11-02-2023 Computed tomography of abdomen and pelvis with contrast MD Dinesh Bobo Work Phone: Start: 10-19-2023 Esophagogastroduodenoscopy MD Dinesh ramírez Work Phone: Start: 08-18-2022 Debridement Reza Proctor Start: 12-24-2017 Screening mammography Dinesh Bobo Other Cholecystectomy Reza Proctor Colonoscopy Reza Proctor Excision of cyst Reza Proctor H/O: surgery Seb Bobo Other History of total hysterectomy Reza Proctor Procedure on brain v entricular shunt Reza Proctor Plan of Treatment Date Care Activity Detail Author Start: 03-28-2024 Elastase.pancreatic [Mass/mass] in Stool [facility] Start: 02-24-2024 Covid-19 Vaccine () Covid-19 Vaccine () [facility] Start: 02-24-2024 Influenza vaccination Influenza Vacc ine (#1) [facility] Start: 01-07-2024 [facility] Start: 10-19-2023 [facility] Start: 09-07-2023 Patient referral [facility] Work Phone: Start: 2020 Diabetes Screening Diabetes Screenin g [facility] Start: 2020 Lipid panel Lipid Screening [facility] Start: 2020 Screening for malign ant neoplasm of colon [facility] Start: 2015 Screening for malign ant neoplasm of breast Mammogram Screening [facility] Start: 1996 Screening for malign ant neoplasm of cervix Cervical Cancer Screening [facility] Start: 1994 Hepatitis B Vaccine (1 of 3 - 19+ 3-dose series) Hepatitis B Vaccine (1 of 3 - 19+ 3-dose series) [facility] Start: 1994 Urine microalbumin profile DTaP,Tdap,Td Vaccine (1 - Tdap) [facility] Start: 1993 Anxiety Screening Anxiety Screening [facility] Start: 1993 Depression Screening Depression Scre ening [facility] Start: 1993 Hepatitis C screening Hepatitis C [facility] Start: 1993 HIV screening [facility] Breast - bilatera l Screening [facility] Patient Education [facility] Work Phone: Patient referral [facility] Work Phone: Payers Date Payer Category Payer Unknown [id number] 2023 Self-pay 2022 Private Health Insurance 1975 Unknown [id number] 2.16.84 [id number] 1975 Unknown [id number] 2.16.84 [id number] 1975 Unknown [id number] 2.16.84 [id number] 1975 Unknown [id number] 2.16.84 [id number] 1975 Unknown [id number] 2.16.84 [id number] 1975 Unknown [id number] 2.16.8 [id number] 1975 Unknown [id number] 2.16.8 [id number] 1975 Unknown [id number] 2.16.8 [id number] 1959 Unknown [id number] 2.16.8 [id number] Unknown [place] [id number] Unknown [id number] 2.16.8 [id number] Unknown [id number] 2.16.8 [id number] Unknown [id number] 2.16.8 [id number] Unknown [id number] 2.16.8 [id number] Social History Date Type Detail Facility Start: 03-12-2024 Sex Assigned At F [facility] Start: 08-08-2022 Tobacco smoking status Light tobacco smoker (finding) [facility] Start: 1975 Sex Assigned At Female F [facility] Start: 10-19-2023 End: 01-07-2024 Tobacco smoking status NHIS Smoker (finding) [facility] Tobacco smoking status [facility] Tobacco smoking consumption unknown [facility] Start: 03-12-2024 History of Social function [facility] National Score (1-100), lower number is lower risk 91 [facility] Start: 1975 Sex assigned at Not on file C [facility] Medical Equipment Procedure Code Equipment Code Equipment Origin al Text Equipment Identifier Dates ULNAR NERVE TRANSPOSITION Reza Proctor DO 08/18/22 Unknown Elbow L FDA Start: 08-18-2022 ULNAR NERVE TRANSPOSITION Reza Proctor DO A 08/18/22 Unknown Elbow L FDA Start: 08-18-2022 Goals Date Patient Goal Desired Activity /State Functional Status Date Assessment Result Facility 08-08-[address] [facility] Clinical Notes 11-15-2021 to 03-12-2024 Shelley Gamboa APRN.BANKRUPTCY LEGAL ASSISTANT - 03/12/2024 5:04 PM EDT Note Date & Type Note Facility 03-12-2024 History of Present illness Narrative Glucose - SIBO CPT 91035 Hydrogen Breath Test Poornima Barker 1975 March 12, 2024 Referring Physician: Imelda Jiang DO Indication: NSG TEST INDICATIONS: DIARRHEA R19.7 Weight: 183 lbs Location: [facility] Duration of Test: 2 Hours Hydrogen Methane CO2 MEASURED CORRECTION FACTOR TESTERS NAME Baseline 9:15 am 3 5 4.0 1.37 MARTITA Bang Test Solution Given: 100 gm Glucose 10 oz Liquid MARTITA Bang #1 - 15 minutes 9:30 am 2 6 3.4 1.61 Maxine Rosa, RMA #2 - 30 minutes 9:45 am 4 8 2.9 1.89 Maxine Rosa, RMA #3 - 45 minutes 10:00 am 5 7 3.2 1.71 Maxine Rosa, RMA #4 - 60 minutes 10:15 am 11 9 3.1 1.77 Maxine Rosa, RMA #5 - 75 minutes 10:30 am 12 8 3.3 1.66 Maxine Rosa, RMA #6 - 90 minutes 10:45 am 12 9 3.2 1.71 Maxine Rosa, RMA #7 - 105 minutes 11:00 am 10 8 3.3 1.66 Maxine Rosa, RMA #8 - 120 minutes 11:15 am 11 9 3.1 1.77 Maxine Rosa, RMA Guidelines Baseline < 10 ppm Hydrogen (H2) > 20 ppm over baseline Methane (CH4) > 20 ppm over baseline Final Test Results: Negative physician Signature:Shelley Gamboa APRN.BANKRUPTCY LEGAL ASSISTANT documented in this encounter [facility] 01-07-2024 Procedure note [facility] 10-19-2023 History and physical note Note Date/Time October 19, 2023 9:55am [facility] [address] [place] [address] Gastroenterology H&P Signed Patient: Poornima Barker MR#: [id number] : 1975 Acct:[id number] Age/Sex: 48 / F Adm Date: 4 Loc: Room: Type: [facility] Attending Dr: Imelda Jiang DO Copies to: DO Dinesh Garcia MD~ Date of Service: 10/19/2023 HISTORY & PHYSICAL: Patient's history with special attention to the cardiovascular, pulmonary systems and the current problem was reviewed with the patient immediately prior to the procedure. Present medications and doses reviewed in the EMR. Allergies and pertinent laboratory tests were also reviewedat this time in the EMR. The physical examination, as below, was then performed. Indication, assessment and HPI: 48-year-old female who presents for EGD and colonoscopy for epigastric pain nausea vomiting and screening purposes. Last EGD and colonoscopy was many years ago. Family history of GI malignancy? No PHYSICAL EXAMINATION General appearance: cooperative, NAD Skin: No jaundice, no rash or lesions Head: NCAT Eyes: Anicteric Neck: Supple Lungs: Normal respiratory effort, no use of accessory muscles Abdomen: Soft, nondistended Neuro: No focal deficits, Ox3. REVIEW OF SYSTEMS Constitutional: Denies malaise, fevers Cardiovascular: Denies chest pain, palpitations Respiratory: Denies shortness of breath, wheezing Gastrointestinal: As per HPI Genitourinary: Denies dysuria, polyuria Musculoskeletal: Denies joint swelling, joint stiffness Neurological: Denies confusion, numbness, tingling Endocrine: Denies fatigue Written informed consent obtained from the patient. Risks (including but not limited to perforation, infection, bloating, bleeding, need for emergent surgeryand loss of life), benefits and alternatives explained and questions answered. The patient verbalized understanding. Based on history patient is an appropriate candidate for the procedure. Imelda Jiang DO Documented By: Imelda Jiang DO 10/19/23 0954 Signed By: <Electronically signed by Imelda Jiang DO> 10/19/23 0955 [facility] Work Phone: 1(292) 235-846204-26-2024 Procedure [facility]04-26-2024 Procedure [facility]01-23-2024 Evaluation note* Encounter Date Diagnosis Assessment Notes Treatment Notes Treatment Clinical Notes Jun, Major depressive disorder with single episode, remission status unspecified (ICD-10 - F32.9) Jun, Insomnia, unspecified (ICD-10 - G47.00) [facility] Other 01-05-2024 Evaluation note* Encounter Date Diagnosis Assessment Notes Treatment Notes Treatment Clinical Notes Jun, Major depressive disorder with single episode, remission status unspecified (ICD-10 - F32.9) call or come in 1 month for recheck gave counseling options Jun, Insomnia, unspecified (ICD-10 - G47.00) as above [facility] Other 02-24-2023 Evaluation + Plan noteExtracted from: Title:ANES Post-operative Note Author:David Montaño MD Date:08/18/22 Plan Transfer/Discharge: Transfer/Discharge Discharge when meets criteria ( From PACU to Ambulatory Surgery Unit, and To home ). Extracted from: Title:ANES Pre-operative Note Author:Marito Montaño MD Date:08/18/22 Plan [place] [employer] Anesthesiologists (ASA) physical status classification: Class II. Anesthetic Preoperative Plan: Anesthesia General. Regional Interscalene block. [facility]02-24-2023 Hospital Discharge instructions Patient Education 08/18/2022 07:13:25 Ric Proctor - Upper Extremity Fracture Surgery (Custom) [place], [place] [facility] UPPER EXTREMITY SURGERY Home Care Instructions Medications -You will be given a prescription for pain medication. Please notify the office immediately if you have any allergies or adverse reactions to pain medications, -You may have been prescribed a nonsteroidal anti-inflammatory medication (such as naproxen, meloxicam, ibuprofen). Do not take any additional NSAIDs if you were given one of these medications. About Your Surgical Site -Keep your splint clean, dry, and in place until follow up. Activity -Continue to elevate your surgical site for the next 48 hours and continue restricted use. -If your fingers are free, then you are encouraged to bend and straighten them regularly to minimize swelling and stiffness. Diet -You may resume your regular diet as tolerated. Please remember to take your pain medication with food to avoid stomach upset. -Increased liquid intake is encouraged for 48 hours after discharged home. Anesthesia Precautions -Do not operate a vehicle (automobile, bicycle, motorcycle), machinery or power tools, or drink alcohol beverages for 24 hours. -Do not drink any alcohol beverages while you are taking your pain medications. -Arrange for a responsible adult to remain with you for at least 24 hours, possibly longer. You maybe drowsy and light-headed from the anesthesia and possibly from your pain medication as well. Expecations of Surgery -You may have mild to moderate discomfort for the first several days. This should gradually decrease. Any increased discomfort should be reported to the office. -Call the office with any of the following: any persistent or heavy bleeding, temperature above 101.5 degrees, increasing redness, swelling or drainage at the operative site, severe and increasing pain at the operative site, persistent vomiting. About your follow-up office visit -You will be given a card with your post-operative date and time for this appointment. Report any problems prior to that time. Driving -Driving is legal, but you must be able to maintain control of your car at all times. Driving too soon, you are considered an impaired driver trainee, and this could be a problem. It is therefore advised notto drive until after your first office visit following surgery. Do not drive while taking pain medication. Reza Proctor, DO [facility] [address] [place] [address] Reviewed: 08/18/2022 06:11:36 Post Op Patient Instructions - FT (Custom) [facility]02-23-2023 Note [id number]:[id number] 08-16-2022 Evaluation note* Encounter Date Diagnosis Assessment Notes Treatment Notes Treatment Clinical Notes Jul, Other non-recurrent acute nonsuppurative otitis media of both ears (ICD-10 - H65.193) Stop augmentin. Switch to zpack. Finish all antibiotic. Get OTC debrox for R ear treatment for cerumen. [facility] Other 07-22-2022 NotePROCEDURE: XR ELBOW LT MIN 3 VIEWS, XR HUMERUS LT MIN 2V HISTORY: Lateral epicondylitis of left humerus ; lateral elbow pain for one month COMPARISON: None. FINDINGS: BONES:Tiny developing degenerative enthesophyte at the extensor tendons insertion into the lateral epicondyle. No fracture, dislocation, or bone lesion. No articular surface irregularity or joint space narrowing. SOFT TISSUES:No visible soft tissue swelling. EFFUSION:None visible. OTHER: Negative. IMPRESSION: 1. No acute bone abnormality. 2. Minimal early degenerative changes. Electronically authenticated by: ROSANNE PERKINS Date: 2022-01-13 07:40[facility]07-22-2022 NotePROCEDURE: XR ELBOW LT MIN 3 VIEWS, XR HUMERUS LT MIN 2V HISTORY: Lateral epicondylitis of left humerus ; lateral elbow pain for one month COMPARISON: None. FINDINGS: BONES:Tiny developing degenerative enthesophyte at the extensor tendons insertion into the lateral epicondyle. No fracture, dislocation, or bone lesion. No articular surface irregularity or joint space narrowing. SOFT TISSUES:No visible soft tissue swelling. EFFUSION:None visible. OTHER: Negative. IMPRESSION: 1. No acute bone abnormality. 2. Minimal early degenerative changes. Electronically authenticated by: ROSANNE PERKINS Date: 2022-01-13 07:40[facility]05-24-2022 Evaluation note* Encounter Date Diagnosis Assessment Notes Treatment Notes Treatment Clinical Notes October, Pseudotumor cerebri (ICD-10 - G93.2) This is a patient with pseudotumor cerebri who was shunted many years ago. She has done well but over the last year has been having headaches multiple times a week. She does have a history of increasing migraines she is not certain if these are migraine headaches or pseudotumor headaches. I have palpated the patient's shunt that seems to pump well. I reviewed independently the plain x-ray of the shunt AP and lateral showing good attachments and placement in the abdomen. I have independently reviewed the CT scan of the head showing no gross abnormalities in slit ventricles. Catheter in good placement. Given these findings I am not sure what to tell the patient. I am sending her for a ophthalmologic exam to evaluate retina for papilledema and visual simpson. 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 Services [facility] note[facility] InformationNortOSS Health [employer] Other Evaluation note* Diagnosis Onset Date Resolution Status Screening mammogram for breast cancer acute [facility] Work Phone: Evaluation note* Diagnosis Onset Date Resolution Status Epigastric abdominal pain ac habematolel GERD (gastroesophageal reflux disease) acute Screening mammogram for breast cancer acute Chronic constipation acute Epigastric abdominal pain ac habematolel GERD (gastroesophageal reflux disease) acute Screening for colon cancer a cute [facility] Work Phone: evaluation note* Diagnosis Onset Date Resolution Status Diarrhea acute Epigastric abdominal pain ac habematolel GERD (gastroesophageal reflux disease) acute [facility] Work Phone: Evaluation note* Diagnosis Onset Date Resolution Status Diarrhea acute [facility] Work Phone: evaluation note* Diagnosis Diarrhea, unspecified type- Primary documented [facility] Author Imelda Jiang [facility] January 07, 2024 12:35pm Note Date/Time January 07, 2024 12:3 5pm [facility] [address] [place] [address] Gastroenterology H&P Signed Patient: Poornima Barker MR#: [id number] : 1975 Acct:[id number] Age/Sex: 48 / F Adm Date: 4 Loc: Room: Type: [facility] Attending Dr: Imelda Jiang DO Copies to: DO Dinesh Garcia MD~ Date of Service: 01/07/2024 HISTORY & PHYSICAL: Patient's history with special attention to the cardiovascular, pulmonary systems and the current problem was reviewed with the patient immediately prior to the procedure. Present medications and doses reviewed in the EMR. Allergies and pertinent laboratory tests were also reviewedat this time in the EMR. The physical examination, as below, was then performed. Indication, assessment and HPI: 48-year-old female who presents for flexible sigmoidoscopy for diarrhea which began after her last colonoscopy. Family history of GI malignancy? No PHYSICAL EXAMINATION General appearance: cooperative, NAD Skin: No jaundice, no rash or lesions Head: NCAT Eyes: Anicteric Neck: Supple Lungs: Normal respiratory effort, no use of accessory muscles Abdomen: Soft, nondistended Neuro: No focal deficits, Ox3. REVIEW OF SYSTEMS Constitutional: Denies malaise, fevers Cardiovascular: Denies chest pain, palpitations Respiratory: Denies shortness of breath, wheezing Gastrointestinal: As per HPI Genitourinary: Denies dysuria, polyuria Musculoskeletal: Denies joint swelling, joint stiffness Neurological: Denies confusion, numbness, tingling Endocrine: Denies fatigue Written informed consent obtained from the patient. Risks (including but not limited to perforation, infection, bloating, bleeding, need for emergent surgeryand loss of life), benefits and alternatives explained and questions answered. The patient verbalized understanding. Based on history patient is an appropriate candidate for the procedure. Imelda Jiang DO Documented By: Imelda Jiang DO 01/07/24 1234 Signed By: <Electronically signed by Imelda Jiang DO> 01/07/24 1235 [facility] Work Phone: [facility] general Narrative - Reported* Type Description Date Medical History Migrande headaches Surgical History Procedure:cyst removal;Disease: 1979 Surgical History Procedure:Tonsillectomy;Disease : 1992 Surgical History Procedure:laproscopic;Disease: 1999 Surgical History Procedure: section;Dise ase: 2004 Surgical History Procedure:gallbladder;Disease: 2005 Surgical History Procedure:Hysterectomy;Disease: 2005 Surgical History Procedure:shunt in head;Disease : 2009 Hospitalization History See [facility] Other [facility] Narrative - Reported* Type Description Date Medical History Migraine headaches Medical History Pseudotumor cerebri syndrome Medical History Transfusion history Surgical History Procedure:cyst removal;Disease: 1979 Surgical History Procedure:Tonsillectomy;Disease : 1992 Surgical History Procedure:laproscopic;Disease: 1999 Surgical History Procedure: section;Dise ase: 2004 Surgical History Procedure:gallbladder;Disease: 2005 Surgical History Procedure:Hysterectomy;Disease: 2005 Surgical History Procedure:shunt in head;Disease : 2009 Hospitalization History See [facility] Other [facility] general Narrative - Reported* Type Description Date Medical History Migraine headaches Medical History Pseudotumor cerebri syndrome Medical History Transfusion history Surgical History Procedure:cyst removal;Disease: 1979 Surgical History Procedure:Tonsillectomy;Disease : 1992 Surgical History Procedure:laproscopic;Disease: 1999 Surgical History Procedure: section;Dise ase: 2004 Surgical History Procedure:gallbladder;Disease: 2005 Surgical History Procedure:Hysterectomy;Disease: 2005 Surgical History Procedure:shunt in head;Disease : 2009 Surgical History Left elbow surgery 07/2022 Hospitalization History See [facility] Other Hospital course Narrative No data available for this section [facility] No data available for this section [facility] No data available for this section [facility]Reason for visit NarrativeReferral Dinesh Bobo Pseudotumor Cerebri SyndromeNort Levels Beyond Other Reason for Referral Reason *FU 11/24 Papilled carlos and Visual Field Exams with DETAILED Interpretations and Reports Please Diagnosis 1 Pseudotumor cerebri (G93.2) Referral Organization [facility] urosurgery Referring Provider First Name Seb Referring Provider Last Name Jeramie Referring Provider Specialty Neurologica l Surgery Referred Organization [facility] Referred Provider Robi Parada Referred Address [address] [place], [place],[address] Referred Provider Specialty Ophthalmolog y Referral Priority Routine General Notes Jaimee Randhawaharpreet Morin 022 07:22:14 AM >Received and fax referral today Summary Purpose Family History Relationship Condition Age at Onset Recorded Date/T renée father Unknown History of stroke Unknown Not Specified Heart disease Unknown Relationship Condition Age at Onset Recorded Date/T renée father Unknown History of stroke Unknown Disorder of thyroid Unknown Dementia Unknown Not Specified Heart disease Unknown Malignant neoplasm of breast Unknown Relationship Condition Age at Onset Recorded Date/T renée father Unknown History of stroke Unknown Disorder of thyroid Unknown Dementia Unknown mother Heart disease Unknown Malignant neoplasm of breast Unknown Advance Directives Advance Directive Response Recorded Date/ Time Advance Directives No September 06 11:23am Advance Directive Response Recorded Date/ Time Advance Directives No October 15 4:19pm Chief Complaint and Reason for Visit Chief Complaint Medication For Depre ssion Amb Documentation ulcers Reason for Visit Screening mammogram for breast cancer Chief Complaint Amb Documentation ulcers gerd/epigastric pain/dr bobo referred Reason for Visit Epigastric abdominal pain GERD (gastroesophageal reflux disease) Screening mammogram for breast cancer Chronic constipation Epigastric abdominal pain GERD (gastroesophageal reflux disease) Screening for colon cancer Chief Complaint Amb Documentation ulcers gerd/epigastric pain/dr bobo referred screening, epigastric pain screening, epigastric pain Reason for Visit Epigastric abdominal pain GERD (gastroesophageal reflux disease) Screening mammogram for breast cancer Chronic constipation Epigastric abdominal pain GERD (gastroesophageal reflux disease) Screening for colon cancer Chief Complaint Amb Documentation ulcers gerd/epigastric pain/dr bobo referred screening, epigastric pain screening, epigastric pain Amb Documentation Amb Documentation R10.9 Reason for Visit Epigastric abdominal pain GERD (gastroesophageal reflux disease) Screening mammogram for breast cancer Chronic constipation Epigastric abdominal pain GERD (gastroesophageal reflux disease) Screening for colon cancer Chief Complaint screening, epigastri c pain screening, epigastric pain Amb Documentation Amb Documentation R10.9 FOLLOW UP Diarrhea Diarrhea Reason for Visit Diarrhea Epigastric abdominal pain GERD (gastroesophageal reflux disease) Chief Complaint Diarrhea Diarrhea Follow up/Breath test/still having sym R19.7 Reason for Visit Diarrhea Additional Source Comments Patient Care team informatio n (unrecognized section and content) Team Status: Active Member Role Status Dates Dinesh Bobo MD Primary Care Provider Active Team Status: Inactive Member Role Status Dates Dinesh Bobo MD Primary Care Provider Active Start: October 19, 2023 End: October 19, 2023 Imelda L Ly , DO Attending Provider Active St art: October 19, 2023 End: October 19, 2023 Team Status: Active Member Role Status Dates Dinesh Bobo MD Primary Care Provider Active Start: October 19, 2023 Imelda L Ly , DO Attending Provider, Other Provider Active Start: October 19, 2023 Team Status: Active Member Role Status Dates Dinesh Bobo MD Primary Care Provider Active Start: October 22, 2023 Eri Willett Attending Provider Active Start: October 22, 2023 Team Status: Active Member Role Status Dates Dinesh Bobo MD Primary Care Provider Active Start: October 24, 2023 Tayla Vargas CMA Attending Provider Active St art: October 24, 2023 Team Status: Inactive Member Role Status Dates Dinesh Bobo MD Primary Care Provider Active Start: November 02, 2023 End: November 02, 2023 Imelda L Ly , DO Attending Provider Active St art: November 02, 2023 End: November 02, 2023 Team Status: Active Member Role Status Dates Dinesh Bobo MD Primary Care Provide r, Attending Provider Active Start: November 07, 2023 Team Status: Inactive Member Role Status Dates Dinesh Bobo MD Primary Care Provider Active Start: December 13, 2023 End: December 13, 2023 Imelda L Ly , DO Attending Provider Active St art: December 13, 2023 End: December 13, 2023 Team Status: Inactive Member Role Status Dates Dinesh Bobo MD Primary Care Provider Active Start: January 07, 2024 End: January 07, 2024 Imelda L Ly , DO Attending Provider Active St art: January 07, 2024 End: January 07, 2024 Team Status: Active Member Role Status Dates Dinesh Bobo MD Primary Care Provider Active Start: January 07, 2024 Imelda L Ly , DO Attending Provider, Other Provider Active Start: January 07, 2024 Team Status: Active Member Role Status Dates Dinesh Bobo MD Primary Care Provider Active Start: August 14, 2023 MARTITA Walker Attending Provider Active Start : August 14, 2023 Team Status: Inactive Member Role Status Dates Dinesh Bobo MD Primary Care Provide r, Attending Provider Active Start: September 07, 2023 End: September 07, 2023 Team Status: Inactive Member Role Status Dates Dinesh Bobo MD Primary Care Provider Active Start: October 03, 2023 End: October 03, 2023 Imelda L Ly , DO Attending Provider Active St art: October 03, 2023 End: October 03, 2023 Team Status: Inactive Member Role Status Ade Bobo MD Attending Provider Active St art: June 29, 2023 End: June 29, 2023 Team Status: Inactive Member Role Status Ade Bobo MD Primary Care Provider Active Start: March 28, 2024 End: March 28, 2024 Imelda Michelle Ly , DO Attending Provider Active St art: March 28, 2024 End: March 28, 2024 Fbi Profiler Relationship Specialty Start Date End Date Dinesh Bobo MD [address] [place] [id number] PCP - General Family Medicine 03/12/24 INFORMATION SOURCE (unrecogn ized section and content) DATE CREATED AUTHOR 08/17/2022 [facility] DATE CREATED AUTHOR AUTHOR'S ORGANIZ ATION 02/25/2023 [facility] DATE CREATED AUTHOR AUTHOR'S ORGANIZ ATION 04/02/2024 [facility] REASON FOR VISIT (unrecogniz ed section and content) Reason Comments Breath Hydrogen Test Sibo Breath Test Re sults. Goals (unrecognized section and content) Goals may be documented in a n alternate section Source Comments (unrecognize d section and content) In the event this informatio n is protected by the Federal Confidentiality of Alcohol and Drug Abuse Patient Records regulations: The Federal rules restrict any use of the information to criminally investigate or prosecute any alcohol or drug abuse patient.[facility] FOR RECORDS PERTAINING TO PATIENTS WHO ARE OR HAVE BEEN ENROLLED IN A CHEMICAL DEPENDENCY/SUBSTANCEABUSE PROGRAM, SOME INFORMATION MAY BE OMITTED. This clinical summary was aggregated from multiple sources. Caution should be exercised in using it in the provision of clinical care. This summary normalizes information from multiple sources, and as a consequence, information in this document may materially change the coding, format and clinical context of patient data. In addition, data may be omitted in some cases. CLINICAL DECISIONS SHOULD BE BASED ON THE PRIMARY CLINICAL RECORDS. [facility]. provides no warranty or guarantee of the accuracy or completeness of information in this document.
--- NOTE | 2024-05-24 00:44 | XR_ITS ---
The [address] [address] Patient Name: POORNIMA RIVERA MRN: [id number] date: 1975 Sex: F Assigned Patient Location: ER Current Patient Location: ED.MAIN Accession/Order Number: [id number] Exam Date: 05/24/2024 00:55 Report Date: 05/24/2024 02:46 At the request of: ROBLES HUSTON Procedure: XR chest 1V EXAMINATION:XR chest 1V INDICATION:syncope COMPARISON:10/21/2021 TECHNIQUE:A single frontal view of the chest is submitted. FINDINGS: The cardiac silhouette appears enlarged however may be accentuated due to the technique of the examination. There is a VIDEO INTERN shunt catheter coursing along the medial right chest. The pulmonary vascularity is within normal limits. The lungs are clear based on chest radiography. There is no costophrenic angle blunting. XR/XR chest 1V IMPRESSION: No acute cardiopulmonary process. Electronically authenticated by: JERO MONAHAN Date: 05/24/2024 02:46
--- NOTE | 2024-05-24 00:44 | CT_ITS ---
The [address] [address] Patient Name: POORNIMA RIVERA MRN: [id number] date: 1975 Sex: F Assigned Patient Location: ER Current Patient Location: ER Accession/Order Number: [id number] Exam Date: 05/24/2024 00:55 Report Date: 05/24/2024 01:33 At the request of: ROBLES HUSTON Procedure: CT stroke head/brain wo con EXAM: CT stroke head/brain wo con HISTORY: syncope, hx brain shunt COMPARISON: None. TECHNIQUE: Multiple axial images of the brain were obtained from the skull base to the vertex without contrast enhancement. Sagittal and coronal reformations were provided. FINDINGS: There is a ventricular shunt system. The proximal limb of this system enters the head at the right frontal vertex. Intracranially, this catheter courses inferomedially and into the ventricular system. The tip of the catheter is noted across midline in the region of the left caudothalamic groove. The ventricles are decompressed. No evidence of hydrocephalus or significant change in ventricular size. No acute intracranial hemorrhage, extra-axial fluid collection, significant mass effect or midline shift shift. No space-occupying lesion or evidence of an acute ischemic event. The visualized paranasal sinuses and mastoids are well-aerated. CT/CT stroke head/brain wo con IMPRESSION: 1. Ventricular shunt without evidence of hydrocephalus or significant change in ventricular size. 2. No CT evidence of an acute intracranial hemorrhage or acute ischemic event. Electronically authenticated by: MAURISIO RAMOS Date: 05/24/2024 01:33
--- NOTE | 2024-05-24 00:44 | ECG_ITS ---
The [facility] Test Date: 2024-05-24 Pat Name: POORNIMA RIVERA Department: Room: - Gender: Female Healthcare Management: : 1975 Requested By: Mehran Waite Order Number: [id number] Reading MD: ALAN WAGGONER Measurements Intervals Warren Rate: 84 P: 51 TX: 164 QRS: 56 QRSD: 76 T: 75 QT: 358 QTc: 399 Interpretive Statements 1100 Sinus rhythm 1108 Marked sinus arrhythmia 2420 RSR (QR) in lead V1/V2, consistent with right ventricular conduction delay 9130 borderline ECG No previous ECG available for comparison Electronically Signed On 05-25-2024 7:39:50 EST by ALAN WAGGONER
--- NOTE | 2024-05-24 00:51 | PC.NURSE ---
PT STATES PASSED OUT IN KITCHEN TWICE TODAY. 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 PT HAVE BEEN NAUSEATED AND DRY HEAVING SINCE.
[2024-05-24 01:28] LABS: Basophils Absolute Auto 0.1 10^3/uL (0.0-0.1); Basophils Percent Auto 0.8 % (0.2-2.0); Eosinophils Absolute Auto 0.3 10^3/uL (0.0-0.7); Eosinophils Percent Auto 2.1 % (0.9-7.0); Hematocrit 37.7 % (36.0-48.0); Hemoglobin 12.9 g/dL (12.0-16.0); Immature Granulocytes Abs Auto 0.07 10^3/uL (0.00-0.03); Immature Granulocytes Pct Auto 0.6 % (0.0-0.5); Lymphocytes Absolute Auto 2.7 10^3/uL (1.2-3.8); Lymphocytes Percent Auto 22.1 % (20.5-60.0); Mean Corpuscular HGB Conc 34.2 g/dL (29.9-35.2); Mean Corpuscular Hemoglobin 30.3 pg (26.7-34.0); Mean Corpuscular Volume 88.5 fL (81.0-99.0); Mean Platelet Volume 9.3 fL (9.5-13.5); Monocytes Absolute Auto 0.8 10^3/uL (0.3-0.8); Monocytes Percent Auto 6.3 % (1.7-12.0); Neutrophils Absolute Auto 8.3 10^3/uL (1.4-6.5); Neutrophils Percent Auto 68.1 % (43.0-75.0); Platelet Count 330 10^3/uL (150-450); Red Blood Count 4.26 10^6/uL (4.20-5.40); Red Cell Distribution Width 13.2 % (11.0-15.0); White Blood Count 12.2 10^3/uL (4.0-11.0)
--- NOTE | 2024-05-24 01:54 | ED_ITS ---
HPI - Syncope General Chief Complaint: Syncope Stated Complaint: synope Time Seen by Provider: 05/24/24 00:30 Mode of arrival: Wheelchair History of Present Illness HPI narrative: Pt had two syncopal episodes tonight. She said that while standing in the kitchen she felt dizzy and lost consciousness - her son was there to prevent her from falling and hurting herself. Her then came in to see her and they tried to stand her up. She once again got dizzy and this time her was able to keep her from hurting herself as she fell, although she did come down to the floor on bent knees. She has chronic headaches including one tonight. She had stent placed in her brain about 12 years ago due to pseudotumor cerebri. She complains of tingling in both hands and feet. She also complains of left sided headache. She denies any alcohol use tonight. No recent illness or injury to the head. Related Data Home Medications ?Medication ?Instructions ?Recorded ?Confirmed escitalopram oxalate 10 mg tablet 20 mg PO DAILY 05/24/24 05/24/24 pantoprazole 40 mg tablet,delayed 40 mg PO DAILY 05/24/24 05/24/24 release trazodone 100 mg tablet 100 mg PO DAILY 05/24/24 05/24/24 Allergies Allergy/AdvReac Type Severity Reaction Status Date / Time Sulfa (Sulfonamide Allergy Severe Unknown Verified 05/24/24 00:39 Antibiotics) Exam Narrative Exam Narrative: Nurses notes and vital signs reviewed and patient is not hypoxic. afebrile General: Well-appearing and in no apparent distress. Skin: Warm, dry, no pallor noted. Head: Normocephalic, atraumatic. Neck: Supple, non-tender. No meningismus Eye: Pupils are equal, round and EOMI. No scleral icterus. Ears, Nose, Mouth, and Throat: TM are clear, no posterior oropharynx erythema or nasal mucosal hypertrophy, uvula is mid-line Oral mucosa is moist Cardiovascular: Regular Rate and Rhythm without murmur, gallop or rub. Respiratory: No accessory muscle use or respiratory distress. Lungs are clear to auscultation, no wheezing, rales or rhonchi Back: No midline thoracic or lumbar vertebral tenderness. No CVA tenderness Musculoskeletal: normal ROM, no calf or popliteal tenderness, no lower extremity edema/swelling GI: Abdomen is soft, non-distended. Normal bowel sounds. No solid or pulsatile masses appreciated. No tenderness to palpation. No rebound, guarding, or rigidity noted. Neurological: A&O x4. No cranial nerve dysfunction observed. No truncal ataxia. Moves all extremities. Sensation intact. Psychiatric: Cooperative and interactive. Normal mood and affect. Constitutional Vital Signs, click to edit/add: Last Vital Signs Temp 98 F 05/24/24 00:31 Pulse 81 05/24/24 03:10 Resp 15 05/24/24 03:10 BP 93/64 05/24/24 03:00 Pulse Ox 97 05/24/24 03:10 O2 Del Method Room Air 05/24/24 00:31 Course Vital Signs Vital signs: Vital Signs Temperature 98 F 05/24/24 00:31 Pulse Rate 78 05/24/24 00:31 Respiratory Rate 18 05/24/24 00:31 Blood Pressure 129/79 05/24/24 00:31 Pulse Oximetry 98 05/24/24 00:31 Oxygen Delivery Method Room Air 05/24/24 00:31 Temperature 98 F 05/24/24 00:31 Pulse Rate 81 05/24/24 03:10 Respiratory Rate 15 05/24/24 03:10 Blood Pressure 93/64 05/24/24 03:00 Pulse Oximetry 97 05/24/24 03:10 Oxygen Delivery Method Room Air 05/24/24 00:31 MDM - Syncope MDM Narrative Medical decision making narrative: Patient was placed on supervisor display fabrication and EKG obtained. Blood drawn and sent for evaluation. She was sent for CT scanning of the brain without contrast per stroke protocol and a portable chest x-ray was obtained. Check of orthostatic vital signs revealed a marked drop in systolic and diastolic blood pressure ongoing from supine to standing. The patient was ordered to receive a liter of normal saline IV fluid. She was also given IV Zofran. Once her head CT was read as negative for acute intracranial hemorrhage or other worrisome abnormality, she was given IV Toradol. CBC shows minimal elevation of white blood cell count of 12.2. EKG was unremarkable. Normal electrolytes and renal function. Negative troponin. Ethanol negative. CXR negative. Patient was informed of all findings. We discussed orthostasis/orthostatic hypotension, its presentation, symptoms as well as treatment. She was re-assessed after receiving the NS IVF bolus, IV Toradol and IV Zofran. Nausea had resolved. Headache however persisted. She was given IV Dilaudid and IV Solumedrol. On recheck at 03:30 her symptoms had resolved. She was able to ambulate to the bathroom without difficulty and denied any dizziness. She was discharged home with recommendation to increase her hydration, see her PCP for follow up. Back to the ED for any developemtn of worrisome symptoms. Differential Diagnosis Differential diagnosis: Likely syncope due to orthostatic hypotension, vasovagal syncope, complete atrioventricular block, subarachnoid hemorrhage and dehydration Lab Data Attestation: I reviewed the patient's lab results. Labs: Lab Results 05/24/24 Range/Units 01:15 WBC 12.2 H (4.0-11.0) 10^3/uL RBC 4.26 (4.20-5.40) 10^6/uL Hgb 12.9 (12.0-16.0) g/dL Hct 37.7 (36.0-48.0) % MCV 88.5 (81.0-99.0) fL MCH 30.3 (26.7-34.0) pg MCHC 34.2 (29.9-35.2) g/dL RDW 13.2 (11.0-15.0) % Plt Count 330 (150-450) 10^3/uL MPV 9.3 L (9.5-13.5) fL Neut % (Auto) 68.1 (43.0-75.0) % Lymph % (Auto) 22.1 (20.5-60.0) % [place] % (Auto) 6.3 (1.7-12.0) % Eos % (Auto) 2.1 (0.9-7.0) % Baso % (Auto) 0.8 (0.2-2.0) % Neut # (Auto) 8.3 H (1.4-6.5) 10^3/uL Lymph # (Auto) 2.7 (1.2-3.8) 10^3/uL [place] # (Auto) 0.8 (0.3-0.8) 10^3/uL Eos # (Auto) 0.3 (0.0-0.7) 10^3/uL Baso # (Auto) 0.1 (0.0-0.1) 10^3/uL Abs Immat Gran (auto) 0.07 H (0.00-0.03) 10^3/uL Imm/Tot Granulo (auto) 0.6 H (0.0-0.5) % Sodium 143 (136-145) mmol/L Potassium 3.7 (3.5-5.1) mmol/L Chloride 108 H (98-107) mmol/L Carbon Dioxide 23.6 (21.0-32.0) mmol/L Anion Gap 15.1 BUN 11.0 (7.0-18.0) mg/dL Creatinine 1.09 H (0.55-1.02) mg/dL Est GFR ( Amer) >60 (>=60 mL/min/1.73m^2) Est GFR (Non-Af Amer) 54 L (>=60 mL/min/1.73m^2) BUN/Creatinine Ratio 10.1 Glucose 111 H (74-106) mg/dL Calcium 9.3 (8.5-10.1) mg/dL Total Bilirubin 0.2 (0.2-1.0) mg/dL AST 6 L (15-37) U/L ALT 12 L (14-59) U/L Alkaline Phosphatase 79 (46-116) U/L Troponin I High Sens <4.0 L (4.0-51.3) pg/mL Total Protein 6.8 (6.4-8.2) g/dL Albumin 3.4 (3.4-5.0) g/dL Globulin 3.4 g/dL Albumin/Globulin Ratio 1.0 Ethanol Quant <3 mg/dL Imaging Data CT scan - head: Radiologist's impression: ITS Impressions Brain CT 05/24/24 00:44 IMPRESSION: 1. Ventricular shunt without evidence of hydrocephalus or significant change in ventricular size. 2. No CT evidence of an acute intracranial hemorrhage or acute ischemic event. Electronically authenticated by: MAURISIO RAMOS Date: 05/24/2024 01:33 Chest X-Ray 05/24/24 00:44 IMPRESSION: No acute cardiopulmonary process. Electronically authenticated by: JERO MONAHAN Date: 05/24/2024 02:46 Chest x-ray: Attestation: I have reviewed the pertinent imaging results. My impression: NAD Radiologist's impression: ITS Impressions Brain CT 05/24/24 00:44 IMPRESSION: 1. Ventricular shunt without evidence of hydrocephalus or significant change in ventricular size. 2. No CT evidence of an acute intracranial hemorrhage or acute ischemic event. Electronically authenticated by: MAURISIO RAMOS Date: 05/24/2024 01:33 Chest X-Ray 05/24/24 00:44 IMPRESSION: No acute cardiopulmonary process. Electronically authenticated by: JERO MONAHAN Date: 05/24/2024 02:46 ECG Data Attestation: I personally reviewed and interpreted this ECG as follows: Interpretation: EKG interpretation: Emergency Department physician interpretation. Normal sinus rhythm at 84bpm. RSR in lead V1/V2, consistent with right ventricular conduction delay. No ST segment elevation or depression. She has some sinus variability. No evidence of heart block. Discharge Plan Discharge Chief Complaint: Syncope Clinical Impression: Syncope due to orthostatic hypotension, Headache Patient Disposition: Home, Self-Care Time of Disposition Decision: 02:13 Prescriptions / Home Meds: No Action escitalopram oxalate 10 mg tablet 20 mg PO DAILY trazodone 100 mg tablet 100 mg PO DAILY pantoprazole 40 mg tablet,delayed release (DR/EC) 40 mg PO DAILY Print Language: Korean Instructions: Syncope (ED), Hypotension (ED), General Headache (ED) Referrals: Birgit Baldwin MD [Primary Care Provider] - 1 week
[2024-05-24 01:56] LABS: Alanine Aminotransferase 12 U/L (14-59); Albumin Level 3.4 g/dL (3.4-5.0); Alkaline Phosphatase 79 U/L (46-116); Anion Gap 15.1; Aspartate Amino Transferase 6 U/L (15-37); BUN Creatinine Ratio 10.1; Bilirubin Total 0.2 mg/dL (0.2-1.0); Calcium 9.3 mg/dL (8.5-10.1); Carbon Dioxide 23.6 mmol/L (21.0-32.0); Chloride 108 mmol/L (98-107); Estimated GFR (African America >60 (>=60 mL/min/1.73m^2); Estimated GFR (Non-African Ame 54 (>=60 mL/min/1.73m^2); Globulin 3.4 g/dL; Glucose 111 mg/dL (74-106); Potassium 3.7 mmol/L (3.5-5.1); Sodium 143 mmol/L (136-145); Total Protein 6.8 g/dL (6.4-8.2); Troponin I High Sensitivity <4.0 pg/mL (4.0-51.3)
[2024-05-24 02:03] LABS: Ethanol <3 mg/dL
[2024-05-24] MEDS: 0.9 % SODIUM CHLORIDE 1,000 ML 1000 ML IV (02:15)
[2024-05-24] MEDS: KETOROLAC TROMETHAMINE 30 MG/ML VIAL IVP (02:15)
[2024-05-24] MEDS: ONDANSETRON PF 4 MG/2 ML VIAL IV (02:15)
[2024-05-24] MEDS: METHYLPREDNISOLONE SOD SUCC PF 125 MG/2 ML VIAL IVP (03:07)
[2024-05-24] MEDS: HYDROMORPHONE HCL 1 MG/ML CARTRIDGE IV (03:07)
== END 2024-05-24 03:47 | disposition home or self-care (01) ==
PROVIDERS: Emergency Provider Emergency Medicine; PCP Family Medicine
DX: I95.1 Orthostatic hypotension (principal); R51.9 Headache, unspecified; G93.2 Benign intracranial hypertension
CPT/HCPCS: 36415; 70450; 71045; 80053; 80320; 84484; 85025; 93005; 96361; 96374; 96375; 99285; J1171; J1885; J2405; J2919

== ENCOUNTER 2024-06-27 09:06 | Outpatient (OUT) | payer OTHER, SELFPAY ==
--- NOTE | 2024-06-27 10:00 | CA_ITS ---
Patient Name: POORNIMA RIVERA MR#: [id number] : 1975 Exam Date: 06/27/2024 Ordering Doctor: DR DINESH BOBO M.D. ECHOCARDIOGRAM REPORT PROCEDURE: CA ECHO DOPPLER COMPLETE INDICATIONS: Syncope and collapse COMPARISON: None. DESCRIPTION: COMPLETE ECHOCARDIOGRAM Real-time transthoracic echocardiography with 2D, M-mode, spectral and color flow Doppler performed. QUALITY: Technical quality was good. LEFT VENTRICLE: Normal chamber size. Normal left ventricular wall thickness LV EF: Normal left ventricular ejection fraction, 55%. No regional wall motion abnormalities DIASTOLIC: Normal diastolic function. ATRIAL SEPTUM: Appears intact LEFT ATRIUM: Normal chamber size. RIGHT ATRIUM: Normal chamber size. RIGHT VENTRICLE: Normal chamber size. Normal right ventricular systolic function. TRICUSPID VALVE: Normal mobility and thickness. No stenosis with trivial regurgitation. No evidence of pulmonary hypertension.RVSP 33 mmHg MITRAL VALVE: Normal mobility and thickness. No evidence of mitral valve stenosis. There is no mitral annular calcification. Trivial mitral regurgitation. AORTIC VALVE: Normal trileaflet appearance. No visible sclerosis. Normal leaflet mobility. No evidence of aortic valve stenosis. No aortic regurgitation. AORTIC ROOT: Normal diameter and appearance. Ascending aorta is normal in size PULMONIC VALVE: Not well visualized. No stenosis. Trivial regurgitation. PERICARDIUM: No evidence of pericardial effusion. IVC: Collapes with inspirations. IVC is normal in size. PLEURA: CONCLUSION: Normal left ventricle systolic function without wall motion abnormalities, ejection fraction 55% Normal left ventricle diastolic function Normal right ventricle size and systolic function No significant valvular abnormalities Adult Echocardiography Procedure Report Left Ventricle LVEDD (3.7 - 5.6 cm): 4.05 cm LVESD (2.2 - 4.0 cm): 2.77 cm LVIVS thickness (0.6 - 1.2 cm): 1.10 cm LVPW thickness (0.5 - 1.0 cm): 0.90 cm e': 0.09 m/s E - e': 6.93 LVOT Max Gradient: 2.67 mm[Hg] LVOT Area (cm2): 0.82 m/s Peak Velocity (LVOT): 0.82 m/s Mean Velocity (LVOT): 0.53 m/s LVOT Diameter 2.38 cm Left Ventricular Ejection Fraction: Left Atrium LA Volume Index (2D A2C): 26.70 ml/m2 Left Atrium Systolic Dimension: 2.69 cm Mitral Valve MV E to A Ratio: 1.08 MV Max Gradient: MV Mean Gradient: Mitral Valve A-Wave Peak Velocity: 0.58 m/s Mitral Valve E-Wave Peak Velocity: 0.63 m/s Cardiovascular Orifice Area: Right Ventricle RV Internal Diastolic Dimension: Aorta AO Root Diam: 3.53 cm Ascending Ao Diam: 2.93 cm Aortic Valve AoV Area (Peak Edvin): 3.97 cm2, 3.97 cm2 AoV Area (VTI): 3.48 cm2, 3.48 cm2 Deceleration [place]: Pressure Half-Time: Peak Velocity(Antegrade Flow): 0.91 m/s Peak Gradient(Antegrade Flow): 3.33 mm[Hg] Mean Velocity(Antegrade Flow): 0.63 m/s Mean Gradient(Antegrade Flow): 1.83 mm[Hg] Velocity Time Integral: 21.12 cm Tricuspid Valve Peak Velocity (Regurgitant Flow): 2.76 m/s Peak Velocity: Pulmonic Valve Mean Gradient: 1.02 mm[Hg] Mean Velocity: 0.48 m/s Peak Velocity: 0.70 m/s, 0.73 m/s Peak Gradient: 2.15 mm[Hg], 1.94 mm[Hg] Right Atrium Right Atrium Systolic Pressure: 32.29 ml, 32.29 ml Dictated by: Otoniel Hernandez MD on 06/30/2024 at 18:27 Approved by: Otoniel Hernandez MD on 06/30/2024 at 18:33
== END 2024-06-27 09:07 | disposition home or self-care (01) ==
LOC: CARD 09:06
PROVIDERS: PCP Family Medicine; Visit Provider Family Medicine
DX: R55 Syncope and collapse (principal)
CPT/HCPCS: 93306

== ENCOUNTER 2024-07-26 10:23 | Outpatient (OUT) | payer OTHER, SELFPAY ==
--- OUTSIDE RECORDS SUMMARY | 2024-07-26 10:26 | XMS_ITS | CCD ---
Author Organization [facility] Care Team Providers Care Terrazzo Installer Name Role Phone JeramieSeb Unavailable BIRGIT BOBO Primary Care Physician [phone] JERAMIE, DR BIRGIT Franco Admitting Unavailable BOBO, DR BIRGIT Franco Attending Unavailable BOBO, DR BIRGIT Franco Primary Care Unavailable BOBO, DR BIRGIT Franco Consulting Unavailable ROBERT, ЕЛЕНА Consulting Unavailable BOBO, DR BIRGIT Franco Primary Care Unavailable NAWAF, GERMAINE Admitting Unavailable GERMAINE MCCRACKEN Attending Unavailable NAWAF, GERMAINE Consulting Unavailable BOBO, DR BIRGIT Franco Admitting Unavailable BOBO, DR BIRGIT Franco Attending Unavailable BOBO, DR BIRGIT Franco Primary Care Unavailable BOBO, DR BIRGIT Franco Admitting Unavailable BOBO, DR BIRGIT Franco Attending Unavailable BOBO, DR BIRGIT Franco Primary Care Unavailable ZIEBER, DR ROSANNE Devi Consulting Unavailable BOBO, DR BIRGIT Franco Consulting Unavailable BOBO, DR BIRGIT Franco Admitting Unavailable BOBO, DR BIRGIT Franco Attending Unavailable BOBO, DR BIRGIT Franco Primary Care Unavailable ZIEBER, DR ROSANNE Devi Consulting Unavailable BOBO, DR BIRGIT Franco Consulting Unavailable Birgit Bobo Unavailable Reza Proctor Attending Unavailable Reza Proctor Referring Unavailable Reza Proctor Admitting Unavailable Reza Proctor Attending Unavailable Reza Proctor Referring Unavailable Reza Proctor Admitting Unavailable Reza Proctor Attending Unavailable Reza Proctor Referring Unavailable Reza Prcotor Admitting Unavailable MD Birgit Bobo Primary Care Provider [phone] DO Imelda Jiang Attending Provider [phone] Imelda Jiang Admitting Unavailable Birgit Bobo Primary Care Unavailable Imelda Jiang Attending Unavailable Birgit Bobo Primary Care Unavailable Imelda Jiang Admitting Unavailable Imelda Jiang Attending Unavailable Ly, Imelda L Admitting Unavailable Birgit Bobo Primary Care Unavailable Deidre, Imelda Martinez Attending Unavailable Deidre, Imelda L Admitting Unavailable Birgit Bobo Primary Care Unavailable Deidre, Imelda Martinez Attending Unavailable MD Birgit Bobo Primary Care Provider DO Imelda Jiang Attending Provider Birgit Bobo MD Primary Care Provider Allergies Allergy Classification Reported Allergen(s) Allergy Type Date of Onset Reaction(s) Facility (13 sources) Sulfanilamide; Translations: [sulfanilamide] Drug Allergy 09-07-19 [facility] (4 sources) Sulfonamides (Antibiotic); Translations: [sulfa drugs] Drug allergy Respiratory failure [facility] (1 source) Sulfonamides (Antibiotic) Drug allergy (disorder) 12-03-19 13 [facility] Repository (11 sources) cefdinir Drug Allergy 09-07-19 Unknown, [facility] (2 sources) Amoxicillin Drug Allergy 01-12-20 07 AMOXICILLIN [facility] Other (2 sources) Pseudoephedrine Drug Allergy Unknown [facility] Other (8 sources) sulfADIAZINE Drug Allergy 09-07-19 Comment:[facility] (2 sources) Substance with sulfonamide structure and antibacterial mechanism of action (substance) Drug allergy 01-12-20 07 SULFA [facility] Other (2 sources) Allergies Reconciled Propensity to adverse reactions Unknown [facility] Other (2 sources) patient allergy list reviewed by nurse or physicia Propensity to adverse reactions 01-16-20 Comment:Done [facility] Other (2 sources) 12 Hour Decongestant Allergy to substance 09-05-19 [facility] (1 source) cefdinir Drug Allergy 01-07-20 [facility] Repository (1 source) sulfADIAZINE Drug Allergy 01-07-20 [facility] Repository Medications Current Medications Medication Drug [...] constipation, # 20 cap(s), Refills(s) 0, Pharmacy: [facility] 1155, 163, cm, 08/09/22 5:10:00 EST, [...] Status: Ordered take 1 capsule by mo [facility] every twenty-four hours NexIUM 24HR 20 MG 1 capsule Orally Once a day Active famotidine 40 mg oral tablet (5 sources) Histamine-2 Receptor Antagonist Start: 10-03-2023 take 40 mg by mouth once daily at bedtime Famotidine Active 40 MG PO Daily at bedtime October 03, 2023 12:00am fluconazole 150 mg [...] milk, # 50 tab(s), Refills(s) 0, Pharmacy: [facility] 1155, 163, cm, 08/09/22 5:10:00 EST, [...] Active 40 MG PO Twice daily 180 December 13, 2023 12:00am Start: 10-26-2023 End: 12-13-2023 take 1 [...] tablet (2 sources) Opioid Agonist Start: 08-18-2022 [place] 325 mg-5 mg oral tablet See Instructions, [...] codes; unclassified (2 sources) Insomnia, unspecified Episodic Residual codes; unclassified (1 source) Pain, unspecified; Translations: [Pain, unspecified] Onset: 4 Episodic Substance-related disorders (3 sources) Smoker 08-08-2022 [...] Pancreatic Elastase, Stool 612 Normal >200 [facility] Comment on above: Result Comment: Resu lt Units: ug Elast./g Severe Pancreatic Insufficiency: <100 Moderate Pancreatic Insufficiency: 100 - 200 Normal: >200 Performed at: - [address] [id number] [employer]: Dasha Lowery MD, Phone: [phone] PERFORMED BY: [address] [address] PATHOLOGIST GAS TORCH BRAZIER SHAW ANGELO M.D. Performed By: #### E LASTASE STOOL #### [facility] , XR KUBon 03-28-[address] [facility] Main [address] [address] XRay Report Signed Patient: Poornima Barker MR#: [id number] : 1975 Acct:[id number] Age/Sex: 48 / F ADM Date: 03/28/24 Loc: XD Room: Type: [facility] Attending Dr: Imelda Jiang DO Copies [...] John Love M.D.03/28/2024 11:37 AM Dictation Location: [place] [address] Transcribed By: [facility] 03/28/241136 Dictated By: John Love II, MD 03/28/241131 Signed By: 03/28/241136 Normal [facility] 01-07-2024 L Specimen: [id number] Received: 01/07/24 Status: RACHEL Polanco Num: [id number] Spec Type: Surgical Subm Dr: Imelda Jiang DO Tissues: A Colon Biopsy (RANDOM COLON BX R/O MICROSCO) Procedures: HE/2, Gross/Micro L4 Age/ Patient Sex Location Account Attending Physician Poornima Barker 48/F [id number] Imelda Jiang DO SPEC NUM: [id number] RECD: 01/07/24 STATUS: RACHEL POLANCO NUM: [id number] IDALIA: 01/07/24-[address]: Imelda Jiang DO ENTERED: 01/07/[address]: SPEC TYPE: Surgical DEPT: S ORDERED: [...] cm, entirely submitted in A1. CPT Codes 92445 Specimen: [id number] Received: 01/07/24 Status: RACHEL Polanco Num: [id number] Spec Type: Surgical Subm Dr: Imelda Jiang DO Tissues: A Colon Biopsy (RANDOM COLON BX R/O [employer]) Procedures: ELIZABETH/2, Gross/Micro L4 Patient: Poornima Barker [id number] (Continued) Signed (signature on file) Jeremiah Potts MD 01/09/24 1542 Normal [facility] Elastase.pancreatic [Mass/ma ss] in Stoolon 11-07-2023 Elastase.pancreatic (Stl) [Mass/Mass] 232 >200 [facility] Comment on above: Result Units: ug [address] st./g Severe Pancreatic Insufficiency: <100 Moderate Pancreatic Insufficiency: 100 - 200 Normal: >200Performed at: - [facility] [address] [id number] Director: Dasha Lowery MD, Phone: [phone] No Panel Informationon 11-06 Clostridium difficile (PCR)(LAB) Negative NEGATIVE [facility] Miscellaneous Test Comment See comment [facility] Comment on above: Specimen Source: ST - Stool - Stool - 700.100 Stool Campylobacter Culture Res 1 See comment [facility] Comment on above: [facility], No Panel InformationOrdered By: Birgit Bobo on 11-07-2023 E coli Shiga Toxin EIA [facility] Salmonella/Shigella Screen [facility] CT abdomen pelvis w conon CT abdomen pelvis w con [facility] [place] [address] CT Scan Report Signed Patient: Poornima Barker MR#: [id number] : 1975 Acct:[id number] Age/Sex: 48 / F ADM Date: 11/02/23 Loc: CT Room: Type: [facility] Attending Dr: Imelda Jiang DO Copies [...] José Perez M.D.11/02/2023 2:27 PM Dictation Location: [place] [address] Transcribed By: [facility] 11/02/231426 Dictated By: José Perez DO 11/02/231421 Signed By: 11/02/23 142 Normal [facility] [place] 10-19-2023 L Specimen: [id number] Received: 10/19/23 Status: RACHEL Polanco Num: [id number] Spec Type: Surgical Subm Dr: Imelda Jiang DO Tissues: A Small Intestine - Biopsy/Polyp (SMALL BOWEL BX) B GASTRIC FOR HP (GASTRIC HP) C Colon Biopsy (SIGMOID POLYP) Procedures: HE/6, Gross/Micro L4/3, H PYLORI, IHC First AB Age/ Patient Sex Location Account Attending Physician Poornima Barker 48/F [id number] Imelda Jiang DO SPEC NUM: [id number] RECD: 10/19/23 STATUS: RACHEL POLANCO NUM: [id number] IDALIA: 10/19/23- SUBM DR: Imelda Jiang DO ENTERED: 10/19/23-[address]: SPEC TYPE: Surgical DEPT: S ORDERED: [...] out celiac, rule out H. pylori Specimen: [id number] Received: 10/19/23 Status: RACHEL Polanco Num: [id number] Spec Type: Surgical Subm Dr: Imelda Jiang, Tissues: A Small Intestine - Biopsy/Polyp (SMALL BOWEL BX) B GASTRIC FOR HP (GASTRIC HP) C Colon Biopsy (SIGMOID POLYP) Procedures: HE/6, Gross/Micro L4/3, H PYLORI, IHC First AB Patient: Poornima Barker Marito [id number] (Continued) Specimen: [id number] Received: 10/19/23 (Continued) Signed (signature on file) Asya Wetzel MD 10/22/23 1600 Specimen: [id number] Received: 10/19/23 Status: RACHEL Polanco Num: [id number] Spec Type: Surgical Subm Dr: Imelda Jiang DO Tissues: A Small Intestine - Biopsy/Polyp (SMALL BOWEL BX) B GASTRIC FOR HP (GASTRIC HP) C Colon Biopsy (SIGMOID POLYP) Procedures: HE/6, Gross/Micro L4/3, H PYLORI, IHC First AB Patient: LuceroPoornima Devi [id number] (Continued) Specimen: [id number] Received: 10/19/23 (Continued) CPT Codes 11551n8, 87535 Specimen: Received: 10/19/23 Status: RACHEL Polanco Num: [id number] Spec Type: Surgical Subm Dr: Imelda Jiang DO Tissues: A Small Intestine - Biopsy/Polyp (SMALL BOWEL BX) B GASTRIC FOR HP (GASTRIC HP) C Colon Biopsy (SIGMOID POLYP) Procedures: HE/6, Gross/Micro L4/3, H PYLORI, IHC First AB Patient: Poornima Barker [id number] (Continued) Signed (signature on file) Asya Wetzel MD 10/22/23 1600 Normal [facility] Nonvisit Note - OTon 023 Nonvisit Note - OT , pt cxl'd in remind system, no reason available. Normal [facility] Nonvisit Note - OTon 023 Nonvisit Note - OT pt cxl'd in remind system, no reason available. Normal [facility] Nonvisit Note - OTon 023 Nonvisit Note - OT Pt. cx, d/t an emergency. Normal [facility] OT - Home Exercise Programon 11-08-2022 OT - Home Exercise Program [id number]#1.00 CD:127 Normal [facility] OT - Progress Noteson 2022 OT - Progress Notes [id number]#1.00 CD:127 Normal [facility] OT - Orderson 10-20-2022 OT - Orders [id number]#1.00 CD:127 Normal [facility] OT - Assessmentson OT - Assessments [id number] 427 [id number]#1.00C D:127 Normal [facility] OT - Consentson 10-19-2022 OT - Consents [id number]#1.00C D:127 Normal [facility] OT - Home Exercise Programon 10-19-2022 OT - Home Exercise Program [id number]#1.00C D:127 Normal [facility] Coding Summary.on 10-12-2022 Coding Summary. CD:[id number] Ww+ PGhlYWQ+VC3KSXGpM46eqJO qtC4lC8DIWYaYHpriPSQMPX tJMxIukoHaYQ7nxTVgHDIs IC8+KU7pZUUbWiussNTcy1O 8oGD6W20nli7vQUoewWO9VU NdOcNlvbzzh7gnyGr4MRlvS mluOyBt KZYkxL95MPG9pI55Vc42lLN uaFCda5unoRc3HyYuHTUuDK Y2bAbaPLdzg7QtPZIkA86og SMuj1T0 HHSagGdbwTTmNxMajFS0dB1 sUOzdpckwp9pdlnfwZzh5fo 06dPGcy5M8fYF8M8WbjaZ7C GJvbGQg NueaqXNDtW9ozjtud1iekdh vJhHvSLFpXSk1SCf8AHDspA lsOuQoUB81LVP5EHNpyyYvA 2FsLWFs kRgdSuP5w5Y1Um5YG7XZGxb dJ7PAJPYAJJvwlZQ+PC90cj 60O0BuSdtpRbn0XVPdWBB3e GN3wO0y RJRmJIrkk2H3kCI3K7IzdvF bgc2qc7ytYXJlZExwR39rqU Quc1G7EIDzpRU1DBLjyOlqR iBzaG93 Oyc+XEHhmJxtc5EyIsdha8x zh5ldeHq8HulaRDZbwxXblK ibGWQ9i6AdAf4aHEZamRL4d KF2zE2x LlQkAsC5IUboR858ToVatMD jTqiqS19iD3KcxWO+PHRyPj x4BTVhlIqlWE1wG3LjJFKmr mctbGVm dRpiPM2eVILyvutsRQKaqY3 aGSClR9w3VpQiHtT3NAjjM0 AlNFSpaljvEv18sO2iQiZdZ tP2GTub A0NpmxB4PHDpzALfSRpwXNQ 1A40wq2L3ZBTxJLItLMS8aW N4zJ4qiFegggjomMNthZzzf mVydGlj CGtoBXtiB489VJJwuAurVrP vZGluZyBEYXRlOiAgMDQvMj AvMjAyMzwvdGQ+ZGGwYTZ5y WxlPSAn iHKtRRjhCj3vcYmaeMmxNQ2 kSCXrxvdeYYIanX4nPHToyN OfwBvhSM2iRNRwzpdks907C iAxMHB0 LTImsJDkO0SbwU3ePgFeTLT qFLGrH3LofJUnWFijX414ED atJuY2SLAymtXxT6DeTSNow WduOiB0 f7K6Dq0Vr8SnerurJ5MmqNC qNhOoLeyoJUp1M5HhMpqucJ I+ZH64BERgCW90MSr8NLU2h WxlPSdi YWJaL2KwkQ3gZoYiTALlVGB kOyc+PHRhYmxlIHdpZHRoPS gfCPYtJfMatSahIT8oQf7oK GVyLWNv xVzywWToRvTiw9ocCMCgBQx cEF0jsDzrO2YvjEW3QFYij4 l3Au98J92rF9HipHG+PGNvb OT3tLN6 uW4qIuCcLoC8OMeoG863DrT ciGOtUcdqe7znp5djvYg6Sl Z9TKAbdpJizJjoYXY2r1YqH l09E24d IHdpZHRoPSIxNSUiIHZhbGl mqd8epR9lUa2+KHOleYW3xT Y9hB0eLzXyDeT9IUxpV908E nRvcCIv Nlbca1obq0vlpCy1AmQvTHR pgqMblIkjXEG2m3AkZl65X9 NlfCzmx3ClWzb1ep69zDUou 1T2eAO6 Z5KtUMWnwrqraKJryAyjLJ5 fPFAadfpkYQJecI4xDOUoT5 s8SuAjWuQ5BWtbS7CxqvC6N GJvbGQg TKIjfFFXfU2ngspnf9goojf tFxQaXCCmBHg6NJm1JBChdM ihGnJvOBD4HyJ7QMC6fHEzr W6raAuq mhzcyH7yQms+VQW7dNIvfSD UJR8vVvhmuKC+UTBdMHN0wM ozQKqqBGMonJ6gELEdQ4h0J iAwLjA1 DAihU3QyldH8WHDhrLCfFGP pvUGImF4mciluq3yjwfvtZo XkHCTqKLo5QOm7NXLdaYhcJ iBsZWZ0 WpK0KZV5oSQicA8waBpucqe hdF9hWqt+FsrkhCcxBQA6RF d3T3SbIwa5AIKnxGltOF8rf GFkZGlu Jf5iaIljqQadES2zYNKlots vn502QoVkk1poSAEoiBAwAH tuIEV6O25qo2P4NSKhGNBdS BJ2cLW4 wJ6hgZokrpsjgLNnnOzdtdB lhZpyXJqcGWdhJ406YQBvgZ pdKcKsLPx5F6PcJuf2XUVyv JhfTJ6y yGEvCKucUt9tiWvuvKofSU9 eWNZrczunm807PlRes5umDC XsvVAhCKosDBK0N64sz8Z2D CMwMDAw DOP2yVR3nQ0qhEenizokuAN mdDsgdmVydGljYWwtYWxpZ2 84PTMgdAegBrIwcUw9C9OyT tg3FHBc kRdeXU1ldIOpQKycDd4djIx afUmxMI6bAKEepefvw222Ih Nge5fxFGVkdWTzDLluGEJ4L 52dr1G6 NQCpKDWfAKQ3xQG5nH1mqUs nbjogbGVmdDsgdmVydGljYW jcYZvzR956ONMlcJkvSzVpi GllbnQg NSrsGFh7V6DbYfxhpIY+PC9 1LSHjEY54hGEyfUFwn8tvbU n8ZxClNQVcUUJ3wDwyQWijj 3JkZXIt U20xsNZpj6U8AEIhrDzkzYO bEyCsxSJ2sB7zJWwrlcbod8 dssbwuEmcea6ldji72oG58H 29sIHdp ZHRoPSIzMCUiIHZhbGlnbj0 zmP1cLl9+BAFtwSL3iIT7gO 6rBGCxKdC4PNofD352IeZhn CIvPjxj q0hot1hwxJt1BcJ8KEYochQ udWdsVRL8q5TpEw93P39qOL dpZHRoPSIyMCUiIHZhbGlnb g2cwH9e Ii8+NODrhRA4hZV1mI3zFvI vVyH5NRpbY644KaPlmHOrTv gyN54dM0LjcUA+NLDlZug0X CBzdHls JP0rlYUnMQjdAc9wFAN1VqP pNbMdFStsL2JqFGBpcxcrgn tvyUQ8CFWjOEZoxN65Vq9rk DogMTBw jDTBsO8acaicq8bojsdgMsW xERQuKWu0BTu1ESWbhYlyEi InONN8IfF0JQL3yWTbnL9zv Glnbjog wV0tG6GlMRMqiqurGt55qC9 cNdDaNkL6OTokIeg+VkVJVE upCSGXVPPCXJd5O5BtDhp2J CBzdHls AM3dgVYyTBirQv6luCkpsHl aFZ3aMEHnibnvSJKrwZ3tDP JkuWSfyLorHX2oCCDwoaptz 250OiAx IMZ8CIAsqZZvB8NhgK5qYtT gNNPgHMNcO8BsjOYjRNsqZ6 78JLhrSeH4OZWiehHeH1IcC WFsaWdu PvE5b5Y3Yq5hDs5rTL7vLPt 3WH38CB54dUPnn3D5jBL1Z7 RvNHJmlyyyojtqhZL5JSXmK DUwaW47 qMXqMYmvHz0fy7F0s964BZX tENDgdG55Xo5lcVogUWMhfH VMjW6jsxwnt6ddntirFuJbN DAwMDt0 RKm0MGTuuYkfAoNqAKD7PrR 4AMA5kFPivD6uhWicyfmmqK 9wOyc+SSnkOPPuiwM0W8OqT qu5KQXc xZodFO6goWQhDGqnIc4jaUs ogFbeFW7bVTMzojaaYNGqdG 4dEHNahPButSvuUZ2bRFMbe siea096 GwRdHIU9WIGcgYGjQ6CxcJ7 tZnPsMQYsGBYmS0UnqLIuUA ooH712WQqfUhO8EYVaxbRyE 2FsLWFs cMowJcL1x8Z0Jn9BDX4pbEU 6P5LbUnv1LQSdbDnbCA8olY KtIPfuLb8ojWureVkxND6rF TBpbjtw HVPofW4aQDIfnMVqtNfoJT6 lIMSnjmjkd949CaFwESL9WB XvqBHjS2EmrE5oFiJbJTCrW KYtP5Mz sAMyHHmvO749AYclQgD2VOW hceNgN7BlVBOazKtiQnR7p0 M5Hv7MWRY7shPoxyq7Q1RcW jwvdHI+ VG04NEXkSZ67jKRcxHWby5j lbFb0OkZvHKBjCWJ6rHyrLA bpu5RbTFEeE84geNOfq7A0G GNvbGxh gNXrLuPbrNS1dZ3aTDlclio jm9xsnzwcUtsol6qqmx39mC 77B77ySPxbGCZkRAYpDFFwS HZhbGln br0gnE2sCd5+AFOheZS2kOR 2wQ9hOlOlSdA1QCmaV650Os FgkFItFwtpv9jhi0gmhYd5N jIwJSIg xmYnsUqmWDQ6d8RvGu14U73 sIHdpZHRoPSIyMCUiIHZhbG jpun2hsI1fCf4+TC9rn7ytt v91cM64 dHI+PUGuSJS9bShsFEnvSZD cvL3jXGpvQwE4QPFxDxKvnT 33yYWqYActKz8osCxlxMkbZ I7yUYEb lilbg063YqPgo3uxHKSwyNK uVLxjRBW2R95pd4P9UDRyLH XeSDG0jKJ7eP9iaLazczams GVmdDsg laRlrLpbEFqwVWpyO822JPC pqBrpObJsjBOcV5qwcaLVPQ 1lOjwvdGQ+PGQfIHU2qZkmB SdwYWRk sJ4aBNIdF2j8IvOgHwC2RHf mM1KuylI2XYZmaMDwMGScvF RTvD4lzhylk7wrojjkXqJoT DAwMDt0 GMp6FFMjhEeyKxNjNHK5UuH 9YYE0rTGpjZ3nzBokyekvbO 9wOyc+RklOOjwvdGQ+PHRkI YB6jGjc SYkdDWHgiV2iMOHbK9l7ZoU kEcM3GRwlZ0NaavK5UOOurE FjSNTclYOYcP9atdefd6tvd jogIzAw NNNzUHt4GXj3WRPnoQtlIxN iGMX6BhB4MPK7wHMtyP3xiO peludclM5sKmx+TVJOOjwvd GQ+PHRk WQJ7pLrzWQztBKAbxC1oSHB bO0x0TqAuPyZ1CDfeN8Rvvq U2WXGhfXIaMGPqoOSRwQ6si syiv7is qolkOjJsVRQqGWv2JZg2JQR kwFfaZvWfUKT1DiN6FZU3nX GplS6reAmbjzovmI4zAng+U BJ6NNG6 MK30CX37Q6XtSvxbgQHijIB +PHRhYmxlIHdpZHRoPScxMD RkBqCkjMmcWR4fAd7uTJRrU WNvbGxh cHNlOiBj (more content not included)... [facility] Consent for Treatmenton 09-23 Consent for Treatment [id number]#1.00C D:127 [facility] OT - Orderson 10-11-2022 OT - Orders [id number]#1.00C D:127 [facility] PT - [place] 10-11-2022 PT - Orders [id number]#1.00 CD:127 [facility] Comment on above: Other Comment: ot... not pt [facility] Documentson 0 08-31-2022 [employer] Documents [id number]#1.00C D:127 [facility] Coding Summary.on 08-30-2022 Coding Summary. CD:[id number] Gh0 bWw+PGhlYWQ+AL0AAIBeB96 vvDHsjS4bO3KESNqGEbfgRQ MHEEhLAbNyahZzWH5xnBPgD XJu IC8+TO9iXTNuQnkjrRVsx1P 2iTM7Q71hec0yOZjdyIQ2XO AdQeIrtixzl5dfhTy8RFlzJ mluOyBt NSGweO42QCG7rD87Xr28pMC wdPXfo2dwpZh9JxWzCNAgHR T0gLsuJWgvo4UfAWAuZ13zr NDfe3P4 HUFwjDzzmRCeTyGyhIK1tS4 eZSnpqqyud0wkrdcfLws0fa 17cGWeo6I4oLP0K1XgdyR4J GJvbGQg NqpwtQGRqH7qjbwom5yjjzv tAxNdYMMpAEp9EEp2FZWkdN agTpBpMB05MLD3BJEimjXqK 2FsLWFs zJriUkR7v8N6Kr3AA0WTYzf nQ3TGTUOOWAkpfYU+PC90cj 69F4PeSgpxDwm7RCOsUBD6o LP2zO3n VARwBAhgy4W8rZD1S5XqxpY jbl9xm6dyVVCfVQhjF52mbN Bmm0T7PWSzvAA6JYYdcXfcF iBzaG93 Oyc+VZXpqFllv7KpKymum8a lh3hykFq2YvqfFALqaiOzrW tdAPT7u2XlGd5qUCCziOX1i YR8sS7n JnClTyY4QSjaW207XxJdzYD qVembH44fC7DceJR+PHRyPj j1QXFmkLmmHN0xJ1RhPMOou mctbGVm hHgzAQ5tVNKvsmfjBNAjkZ2 kWSWaH7n5PuCsXpO7DNheR0 PlQQGipltuTo83cM7bLiQfS kU5HKfl S2WppgV1WLWrkEWwLUliFRE 4F02vs1V5XKVfXYKfAYE8uN F5gP5ixKdivjofiGHcpYuje mVydGlj WBceZKqbF892AXJmsYfcNzE vZGluZyBEYXRlOiAgMDMvMD gvMjAyMzwvdGQ+NFZbDSD6l WxlPSAn vQHpPIrmRi7fiRlhySqaGQ4 uLSIrgtrkMDZjyN7aNFXgnI CkoDygOE4uYHJmssnot188D iAxMHB0 XLDkrBFsG4IdiP8pVgPuAQZ jWMIoB5EwzBCyMMqqF897XD kmBeD4DPWunvLwX9NmNYPtf WduOiB0 g8B5Kt9Iv5ThlqjrG1LfqSB uFjBnEqxnTXe6X8RlYlccfL I+EZ64JZBmGH13CDb8RCC5m WxlPSdi PSKzZ7RzxB4hJoKaTRSpXIZ kOyc+PHRhYmxlIHdpZHRoPS gsDPRaHqNpvCrbDC9aQb5jK GVyLWNv yVlemFCnCxBrr4yzTGSfCRn bPQ1vuBomV0VhqVE4CXJuf5 r5Yl37V64jI4ZfoOC+PGNvb VO6oJY6 qG0uQaGiIyT0ORafZ767OcS imHBdCiyre4pdo7sqwCj3Hp Q1DQLgldFooEebCHI9s8EjW x18C95p IHdpZHRoPSIxNSUiIHZhbGl xzu9awI0qOr1+LCNqeBR3lU Q9eY1sHvLmXeJ7TFalO064W nRvcCIv Qdyet7rwg7mahNs2KcKmCNS gaqFmvGwiHLR8c9InAt69L7 PolOjlk4ZcRue8eu51rTLyd 8Q3cND9 E5HiXGTuagckdYGgpTmgSH6 uBVGradraOZSzxE7kUQVyL6 c3PhLaAtD2XSouV9NqnmK0Y GJvbGQg MLNqrFDBwI7emsuky2hoptm uXeHyEKVxVNo1ESd6GUVsfF gwBjQoJRF3WsY4IFV2yVImp S5mxLww acnvpH9zDbi+OQN3bGGcdLS EHM6yXpwcsSQ+ZGAqOEO7wT qhOZzeQYUzzN2fRZTmN0y4C iAwLjA1 JMblB0NhikI2SWDcgMCoIRH keTYTnI8ouyqbn9rvstwoAe DbSQYbEIu8QSo0YPKhkRodC iBsZWZ0 DhA8LUZ2dCXjaY5zzSkykcr pxS5jIkp+XlsvzYmyYWD4RD m1V6StNde1GOAzjJupXH8yn GFkZGlu Yc0tqPrgvDlqIY6pWUVttqr cq741SzOjw3lpVLKyqXQrRG duAYJ4Z36xy7K4KBFsGEUgA UB8pWP8 wM7vnJiwcutexXQzuPeazdU ysUbtYDwqDGzkD446GDLwaC kpViZdLYo2X1JtCkf5YREot SseSH3f qFMaILiqJt9icAnbvYcmOK0 jYXTnlxwlj636WrChy9ekJM KbfOCtGTljEPJ7S29ib9H2E CMwMDAw FGP4uMY0cK9yvXzrmzfvyKK mdDsgdmVydGljYWwtYWxpZ2 14XJTyyKawZpZrrGx0H6BuM kx2BONx eSqrGY0eaNNqTDlnSr2zjEi tyCxgJW4oWIHleqcjf437Sc Yyh6ihKOXxfATmHXprQJP4V 50xs1G5 RCQhJEQwUBH2cGP0aX7heQb nbjogbGVmdDsgdmVydGljYW bfVMubT073IDWmlHhvFfCqf GllbnQg GZwpYDa2C7DxSpyynZR+PC9 0TZHjMU09gKHlgFEhz6evaK o8XwArQDPfRXH3ySniQEmvn 3JkZXIt R24ibYVrs3S1KUArkHucdQT kIcGieMT7zB9nJVrtxxtxd6 nkuqigHuoth3cykv63kQ47R 29sIHdp ZHRoPSIzMCUiIHZhbGlnbj0 faQ9xBp5+UTRubLD9wMG3oD 5mOGGyMnZ4WTvqJ353NzPlw CIvPjxj q4etp7cphQm9VbB6XTPaoaG puJcpNAK8j6SjTo27Z10cOW dpZHRoPSIyMCUiIHZhbGlnb y3mkF8g Ii8+OGUctMD4qXA9fU8pGzA lRdS1RTtcY788NyFqpHClEh ekB82qU1KvqHA+QKLhKau3Y CBzdHls QW4inYKhFNlyPl6iNUN8HtB sLkVlGCkiX9SiECGlujhllj yjgSQ9LWPwHYWywP33Nt9xp DogMTBw bTYVcT5exhjgo8rlhgdpOsN oTCOlXQs2LNw9VHQuwEiwIb GcBRT2PzS0EDD3xYXvxY3qg Glnbjog iU5zM4UsMGHyavqpAy76nL6 pBjRxOmX4AGhpDwu+VkVJVE boPWTGUXOPMCd9O4UpOyr9M CBzdHls VT2btKPgRFbzZm0tbQucuWk aDM9hKANorkbzTPAiuX4hSH QgnUNjyMgaFG7nFLDlvxikf 250OiAx NAA6MUHdmRLgU6LgcW3pIzH yPZDbJILnR0HnzTWxJMilE8 06OPlvBbH0JPRjnrWuO4IiZ WFsaWdu RwF1f3C6Pl6jSa3fSW9vLQf 9AX54OV93uDPei6Q8wYB6Z5 SeLIMkdkobfketfJV1IJDgG DUwaW47 jZFpAXakKu7gd4F7a001LLV sDWOyaT90Nb8ofEnlVAOxbG ZRbI9tyfgty7jforarTqHxH DAwMDt0 CBe7YVJxjJrsPvHrVAH7KmX 5LUL8qGJlfV2suSgfpxjcxN 9wOyc+LTaiPCXaagC4H5ZaZ bj7TWFh jUimGI3baGLsDLzzWr2ijZl tqOvoCK9fAPRawawyVHWttC 7rEEUtcHPjhRygPC6gSKUqe zkjp760 PbNjMIC5BLMdsYRiS8BirB0 eXbIzLXDrILEuT5ZloLYsEG dnZ092SFnaKyP2SRYckeEfL 2FsLWFs oAjwJxH1c3C6Jt8OFI6ukUT 1U8PgQnk6QJVgmKyyFK9lmW MfKLpyXd1jzSermDlxJZ0xR TBpbjtw MTKngG4gQWZspGBhcTdqUF6 gRWPcckmix435GpEdLQR6GG DtgCZkU4DhrY9pUuObJHVeY OJrC1Iv uOGxRFcnK253JVmdDnE9RLO ysbJaK2OwTZDzlIvtQlM4x7 O2Dy8NsXEfCUZuBE67WY10A K30N5Os PjwvdGFibGU+PHRhYmxlIHd pZHRoPScxMDAlJyBzdHlsZT 9sUc7yJMVeXIPdxMlrzQUnH wYml2mc QOHnNPhcNT4tcHkkR8ZghPY 7GIUvf3r6Wn79K22rZ0RigX A+VURanHP9iCA7iF7gUtHbI qW6RSqc B559DwSnqTEhGpjhd1wdf8k qiGa6GhAiGZWyapBnpZewZI M3d2BfWs32O22kXMzaLRBvT SIyMCUi UDEggHhjib5cpO6uXs6+PGN apOA5fDY7pM0xVqGdSjR8LF lqG606BkKajPIvVooiG05wI 3JvdXA+ IOJfGkr9NVXodXyiKE4oeRJ aILrpEp6nKMC6JaKfFhMqDK cpW8QsKNXqbtamzcvgwYX8G DAuMDUw eX57Ug6uoOgfJj7nROMlHLH 3GSXcyMFrW9QnkD7iRuXfWF SlXVHwS6ZkoOCmBBovB235D GxlZnQ7 THWprmOfY9IuDMTccBuwCcQ 4g2S1Re4XrAwnjVEdAW0wHq JbKJs2B4ViHyd3MWQyzYimM E0wzIZp LAewZo5cgZowzSpuAD6vQMX xmjurz045UxCkq7ffHYDnlX OtJOrpWNK2H96dt8H5RIBoV DAwMDA7 jQC6cH3hxLkcnwdmzRJvnHd xkgGoaJisDKgxJWwmV504KI CaiGwiXyZQVyu4X7XxJxt8Z CBzdHls JJ0vdZVlYPrqTj9nhKlgoUy iGF2aNIHiytsnu712HaJca6 qkELUclTJpHQqyQHR7J32cn 8E3PLFt EIAaEPR5gFE5dI3phKjmeik gbGVmdDsgdmVydGljYWwtYW dmL608MTGcmIggMr5YNmh1W 1HqPmx0 YXZowOqyXE2doJDoQBwyTx6 hrQelyZohBQ2tVDZzungjg4 37PoXgn6laLAFkvZNvZUgeA XS4T86p g0J2JTBeVONuYTC2fYS2jY7 hbGlnbjogbGVmdDsgdmVydG vvUCuvZGzoR047DPFfrEibR lBheWVy OjwvdGQ+AK04cb33Z3GrXqq qXpo2BNDsTOH3vVM1aN2mVQ DiPPsge3B8vWA7O5YunjBwf p8gr6dc YXBz (more content not included)... [facility] Physician Orderon 08-30-2022 Physician Order [id number] [facility] [id number] D:127 [facility] Coding Summary.on 08-21-2022 Coding Summary. [id number] Gh0 bWw+PGhlYWQ+OB7PHPSrI19 aqWXkiH6AK8yGHC2PFLROMS DVVQ3BSI3ghFR9FGsnD6Wrz iAv FyxnzBPiYA89ABb2LRM6hBz zFVvtiK8foIIvF9v0NxAcAB 61iX56OUzwBRJxZwM8IdRhp jsgbWFy Q5lvDwVnzZLqTdv+PHRhYmx lIHdpZHRoPScxMDAlJyBzdH loWR0lUz1qPHPnUDAevNgeu HNlOiBj t9kdOBBoIUhlJV4emDtlL5R ueKX2RLUug9p6Ej95lAX+PH VvSIL3fHlgBXhnh386DtVur 2mhFYX1 aZXlAOgcEFS2C07pf7Q7SNQ qPEOgDVI4dEO4kG4wgIzxfl zlM9FbnAEvJsR9JNZ1qAGve V2hzPxj bjpqzX1lFii+A32SMD5FMNW EFH6YXeq9X5LyQplypDM+PC 23WAWvLA93dXChqWPiw5uly Ss7MuNf NPKnSEA3vQtxZPqsz1BhJFB hE59puFQbr3Z0GUCykArviB IdZcAewSO9iP6pOUatzeyju 2hvdzsn Zbskz5mnlh51vY89K05zTBb sHHScGNM0STKsKRNwoIvoyj 3igQ5jRh6+ETwvg6vwe6csu Vr8NpYo VNJdaiAasUxqBLO4p8JmVq2 7G4NrnNprg4PqChj8rt00eI Ewo0X5bGN4WQwvCSXbjD8vO WxlZnQ6 EIXcJiXbuF27dHLkGJisCz0 zvWjidZfaTB3cZEGoplgsFS AxwN8qHNRqgZPoaZovVQ2rE TBpbjtm z073GoAoYVZ0HCUqsKFcI2I egG8hFuAaKEXmGDUdO1KzkO ZeNVqrD614IEpnMuR7VGSbs wHaT1Ka SZJntYdkCmV1f3J6Vi9Rj3V fxutvGTJ6SHkvIZMzZoN5My QbAiH1R5PjRlb8JQWgxWpfM Y3yP4Nm UGVkwneosrvimWQ1VZBmZUK hkA63rOMbIPtsXu9hu3I9x2 50GHEzTIRmyA83Vw9haEkzT TBwdCBU aM6uewalt7tlmqlzJyKfPPJ vKXm3OLj5YJHnrEtvVfSjHG F9AxB2JAX7wLCfgJ2dfKjsp fnwmR0c Oyc+W53xdQ1mCCV3TWL0hno oHMFodgNvTU47QG97L9NkWy wvdGFibGU+PGRpdiBzdHlsZ J1hTuSl m0tym7RwUDqnE2LoWXIbTWh nLuy1SWHtFRH6gVY0tM9lKP IsEKurk2R2qVY6Y7PvxeUch k4yi9wd UJOsMScxL69ijXPzn9C6ZLP zjBW2EBKaeWnvGdLjeQ21Kd c+YUNclNnpu1FvHcvlw4kve 5tpzWt9 KwIuJEHnkyRdhPnsSJY6g2B cXm12Q80xTPjgIKXpMBLyDB BdBHNlqGvusk9wtI0nDt8+P GNvbCB3 bYT2cY5oMAOjSiG4GSekR92 9KcAwtNKjIwnqv5nkc3uyxZ e1FgXgFMHndaTmbEqnTPL2v 9ZbTs95 B35wVAdpVNSnNSFjEARnBWZ ctOcohz9teE1qMy8+PC9jb2 [id number]+EMGeKJE9i WxlPSdw GZRgxV2eFAgtUbW8BCRcRlB vkY81yMKwOZfzGl7twSyeyX jwVO4yOKFxbrmsv801FbKch 2xkIDEw jAAoJBlpKAJ9P69ho3S0LKV gANXfPGK8uPT3iZ6egXwqqw ogbGVmdDsgdmVydGljYWwtY DzvB580 IHRvcDsnPlBhdGllbnQgTmF yJVq3S6PhXcn1BCGukAflLX 8oiGElSYijMg9lwYaqlKdlY K3oJDXt urckb174YuDxu2mmQAIauKM lIKxgKVF2N82ld7P6CZKmKF TwCKW4rZX6lJ0uuQacdtnis GVmdDsg pfMgxOkdYLtoIDwrR265MWN ntAxdJtHvzxGgUJGgfQY6PJ 79WP55gUVwf2A6cTV2M2NhL GRpbmct uwornSG6ROVcUTMlzF60Fz4 fuFktLn6kGMYhDEA7GIYggU LiX0MeyR5gWpOwWQSuFHAiU 3RleHQt BXzyU196WWhnYxW0LRLhagO fG5EhBVSgbVzuKzE4n3R5Xj 9MZ2P0ZN38NQ73yLVop6Y7e IR0W7Kk IFKocsyvckhnqTF8VPXlTAC kzG23Ww7dbTzaPf0wQIGyUA Q9TXXwwBDoS4FibA1jNgWsI DAwMDAw Q8EynOHgDChuQ043WJnuWzH 1EQKzfuLxV3XnYQVclEwzHa A9l8F7Mm2KQRj0HB34AS70h EDdj7K9 vNE8M0FxQLJuygphcubpgCM 9CHKuBNTbkV11Yf5xhFolJy 3tFHTlPVO4LWJjdXTlS8Yoi U8yFnIy FFDzMMTwG8EbzXCcKOydC38 8ZJscYqN8ONLuqaDyM2TcDI LwaVcpMkE6r9P4Un8QSVMfP I61MVY5 pHE6BR85XM67S9KmFuebnCB ibGU+PHRhYmxlIHdpZHRoPS lfXIRsLhSgaDmzBF9iJj8mT GVyLWNv mHhkzEMxSgOiz2kcZMZpQLc lCK6lvVlkI1JxbWZ9AZYfe2 r3Hu08H61kH7TtrTA+PGNvb DF0lPL6 vI7gOfYiZoU8OHfgT810ReV tuIWdPjrnn6hto1ltyVm6Mn F7HUQnrjZmdHzlMFC3i6PpA x01X87d IHdpZHRoPSIxNSUiIHZhbGl nyi5adO3xUp6+QEAoeVJ0kI Z4rD4fBpHtPnP1BGorS252B nRvcCIv Tvrar5yto0ampBk4FyWmKYE cuzGbyXioPKK0g9XbOq00L0 KwuUfpb8YzJfg8vt88vURfr 8K3tKJ3 N8DvWTEnuyulwIFvpMtsPA5 hXGAysqsdWNEsqK7aZMVzJ0 a7QuPlYgT8URicB4LeaaU2C DEwcHQg BAtgWKZ2P54qq9A7DFEcMVI qNPT1tCH9aD0iwJnoepgsbK VmdDsgdmVydGljYWwtYWxpZ 246IHRv sDulDLVuhJ5fPZWduRBkpZy sSL8kKGLcnfzqOpOQAMIBFR OGOxmIRTSSZM33VH89wSErq 1F0gLD2 B3LbNSDwbrztqhabrLP5NUF jXOCfpD35dZXgYXttQk1xk4 F5o998IBEgKYFjeZ68Ow5cv DogMTBw cRVUmL4bgiuhp5rhyvznCtR wKHPtKRv5ZHa8BCVmbYttFa LuXGP9FkK4HPT5dDYeiW7kw Glnbjog eS7fRdo+ZSImBBevRLt3Evx vdGQ+UDPfHLB2zEhzUUdcCK IhjC9gFZNeL1m6ViRrJkK3Y GhhE7Ty AMDhwyfrMv63qL1mRqDfQtA 1RCxvH6SmrnJ6IZJxqXPjRR smSRT8W29kc7H2SQPnZSOsN NQ6fNI0 bZ2xpFnegnhmeKRywRiaaqB kpAkzFNrqAWdtW098XGZulZ raMcH7QBtfIAGqEV25XR89a KGco6C5 qDD1M8FkLOJemzfmqwoqnLT 2ZNAyJXZyfN93yQClKWojFu 9ii1C8r823RFYePYBfzV72U j9qzKet HROjdAPFzL1hgcczb4zixwf qDoToITQlHFx7ECa5GAHkgE daHuWuMXN1SuN8GJL2cGByg V6lsKjr qpuahN1fRxd+RmVtYWxlPC9 9PZ40uRGex9Y5sRJ0Z8UgKT HfprozkuddlAK3BIKmEWShz C23oSHb BJpnHm6tc3P6l186IYAuLIS gxK84Ls2diUzyQGHtlPNIdD 9ndlide1qcpvhoNrIoHJYuQ Os4THx7 KSCkeIrmKkYoXFS3QxJ9QEL 9pVHleY8lzLnncreieJ2cZe c+RK2omHtzeA5vsR3WRG5aN ERheSBT uRKnHPZ4LZ01ZR86H3AsTwu vdGFibGU+PHRhYmxlIHdpZH PmXTykODXtQbHpsVnnIP6lH h4cIFIn QUJfyQgznIJiKhExo4nvQJC fOFebFG3fhTyxH6VxfFT4CA Muz5f2Ps21C93dH1QprNN+P GNvbCB3 hHX5sK9gOjDkCjH0TDxdR55 5BdAwaHDzNktow2mnn0wrqH i5HvVjMXPpybXpqRowXKW8o 8KkDx38 L97aVEvqOUZcIDIhATFyFVI imLzwtp7ysW0zHk5+PGNvbC D4nME1wT4uMmQkBpO9VLpdL 249InRv xRYsFcolC92rZ4RmhHD+PHR hAkg3ZVRbnJatXR7wwBGhKT vsUm7tDSD9UnXeVrWoPYauF 3BhZGRp kehwyxtatRC5DQXwAEOmwM0 9Fs3wrJxvJh0uZYYzJBK0LC KwlHLyU3WtyN2cBvNrRCAhT FHwC5Wi mFVvWWuwL886GBxoDyZ4MRY mvjKsB8ZmILXcxHafOsL8t8 F7Hu0AlTijzUJgHX3vSkQlZ Zo5J8Zv Rzf2FJTwtVebAV9euRJxAQp rLd2ofZahyJqkLM2hLWCnme eus249OhNiy4ykRSPnmEMjE GltZXM7 U90ox4G4HBQcAUTmDFF3lYP 6nK2dsFatummqbGUdrEbpog ReuEvfUXyfGVhaG604MYEcp DsnPkZJ Vws4H7JyEsu1GXLbtVjnLJ7 oxEDbJCimCa3oyOfotHheEV 4qDOKqlhpne227GaEng4jrE DEwcHQg XCxqFYB8T11dl3O1DQDzAZL bHSX3lKE6zV5idJrddzvdnK VmdDsgdmVydGljYWwtYWxpZ 246IHRv qSosYg2RTqd3J4McUac4CZP ngEphXU9alZMrFTfrHn0xuU vbeVjpVS5dRIUvrexxk284M xBdd4bh RYUibGXtNRipQPD8T46at2W 7NGTiWDTfUNZ2zZV3rV1kfI lnbjogbGVmdDsgdmVydGljY WwtYWxp C108SVBrjPphFdOicKEvJur vdGQ+CG34jq83T9ZwOmkdAz h0JGKtSHX5uXE4zK7yMKVjS Tlaa4F6 bGU9 (more content not included)... [facility] Consent for Anesthesiaon Consent for Anesthesia [id number]#1.00 CD:127 [facility] Discharge Instructionson Discharge Instructions [id number]#1.00 CD:127 [facility] IntraOperative Documentson 0 08-21-2022 IntraOperative Documents [id number]#1.00 CD:127 [facility] IntraOperative Documents [id number]#1.00 CD:127 [facility] Main OR Intraoperative Recor don 08-21-2022 Main OR Intraoperative Record IntraOp Document Type FT Summary Primary Physician: Reza Proctor DO Finalized Date/Time: 08/21/22 12:38:52 Pt. Name: POORNIMA BARKER/Sex: 1975 Female Med Rec #: [id number] Physician: Reza Proctor DO Financial #: [id number] Pt. Type: A Room/Bed: [place] [address] Admit/Disch: 08/18/22 06:24:59 - 08/18/22 14:30:00 Institution: [...] Case Attendee Danyel HARVEY, David Proctor DO, Erin Travis CST Role Performed Anesthesiologist of Surgeon - Primary FASHION ILLUSTRATOR/SA Record Time In 08/18/22 09:53:00 08/18/22 09:53:00 08/18/22 09:53:00 Time Out 08/18/22 11:01:00 08/18/22 11:01:00 08/18/22 11:01:00 Procedure ULNAR NERVE ULNAR NERVE ULNAR NERVE TRANSPOSITION(Left) TRANSPOSITION(Left) TRANSPOSITION(Left) Comments Last Modified By: Tuyet Morel Kelsie E Sayler, Kelsie E 08/18/22 11:05:46 08/18/22 11:05:46 08/18/22 11:05:46 Entry 4 Entry 5 Case Attendee Tuyet Morel Jessica D Role Performed Actuary Clerk - Primary Scrub - Primary Time In 08/18/22 09:53:00 08/18/22 09:53:00 Time Out 08/18/22 11:01:00 08/18/22 11:01:00 Procedure ULNAR NERVE ULNAR NERVE TRANSPOSITION(Left) TRANSPOSITION(Left) Comments Last Modified By: Tuyet Morel Kelsie E 08/18/22 11:05:46 08/18/22 11:05:46 General Comments: CHIN [employer]OR STUDENT, SCRUBBED IN AND IN ATTENDANCE.BROOKE BRIAN. ANTONINO HUTCHISON, [place]TH[place] REP, IN ATTENDANCE.BROOKE BRIAN. Perioperative Protocols FT [...] Reza Proctor DO, Roth CST, Liane E, Sayler, Kelsie E, Kipp, Jessica D Time Out Complete 08/18/22 10:17:00 Outcomes Met? [...] and tissue Entry 1 Skin Integrity Intact, [place], Warm, and Skin Abnormality No D (more content not included)... [facility] Preoperative Documentson Preoperative Documents [id number]#1.00 CD:127 [facility] Consent for Treatmenton 07-27 Consent for Treatment [id number]#1.00C D:127 [facility] H&P Updateon 08-18-2022 H&P Update [id number]#1.00C D:127 [facility] Inpatient Patient Summaryon 08-18-2022 Inpatient Patient Summary [address] [address] [facility] Clinical Discharge Instructions PERSON INFORMATION Name: POORNIMA BARKER PHYSICIANS Admitting Physician: Reza Proctor DO Attending Physician: Reza Proctor DO PCP: BIRGIT BOBO MD Discharge Diagnosis: Comment: PATIENT EDUCATION INFORMATION Instructions: Ric Proctor - Upper Extremity Fracture Surgery (Custom); Post Op Patient Instructions - FT (Custom) Medication Leaflets: Follow up: MEDICATION LIST [facility] [address], [place] [id number], [phone] acetaminophen-hydrocodo ne ([place] 325 mg-5 mg oral tablet) 1-2 tab(s) Oral q4hr; as needed for pain. Refills: 0. docusate (Colace 100 mg Cap) 1 Capsules By Mouth 2 times a day as needed for constipation. Refills: 0. Medications to Continue Taking That Have Changed [facility] [address], [place] [id number], [phone] START: ibuprofen (ibuprofen 600 mg Tab) 1 Tablets By Mouth every 8 hours as needed as needed for pain. with food or milk. Refills: 0. Medications to Continue with No Changes Other Medications cranberry (cranberry oral capsule) esomeprazole (Nexium 40 mg Cap-EC) 1 Capsules By Mouth every day. Comment: [facility] Main OR PACU I Recordon 07-27 Main OR PACU I Record PACU Phase I Docum ent Type FT Summary Primary Physician: Reza Proctor DO Finalized Date/Time: 08/18/22 13:17:16 Pt. Name: POORNIMA BARKER/Sex: 1975 Female Med Rec #: [id number] Physician: Reza Proctor DO Financial #: [id number] Pt. Type: A Room/Bed: [place] [address] Admit/Disch: 08/18/22 06:24:59 - Institution: Case Times [...] By: Luz Frederick RN 08/18/22 13:17 [facility] Main OR PACU II Recordon Main OR PACU II Record PACU Phase II Doc ument Type FT Summary Primary Physician: Reza Proctor DO Finalized Date/Time: 08/18/22 14:50:45 Pt. Name: POORNIMA BARKER/Sex: 1975 Female Med Rec #: [id number] Physician: Reza Proctor DO Financial #: [id number] Pt. Type: A Room/Bed: [place] [address] Admit/Disch: 08/18/22 06:24:59 - Institution: Case Times [...] Signed By: Dylan Mcneil 08/18/22 14:50 [facility] Main OR Preoperative Recordo n 08-18-2022 Main OR Preoperative Record PreOp Document Type FT Summary Primary Physician: Reza Proctor DO Finalized Date/Time: 08/18/22 10:25:18 Pt. Name: POORNIMA BARKER/Sex: 1975 Female Med Rec #: [id number] Physician: Reza Proctor DO Financial #: [id number] Pt. Type: A Room/Bed: [place] [address] Admit/Disch: 08/18/22 06:24:59 - Institution: Case Times [...] her perioperative plan of care Finalized By: Tuyet Morel Document Signatures Signed By: Tuyet Morel 08/18/22 10:25 [facility] Monitor Recordon 08-18-2022 Monitor Record [id number]#1.00 CD:127 [facility] Monitor Record [id number]#1.00 CD:127 [facility] Operative Reporton 3 Operative Report Patient: CHIARA BARKER Age: 47 years Sex: Female : 1975 Associated Diagnoses: None Author: Reza Proctor DO DATE OF SURGERY: 08/18/2022 SURGEON: Reza Proctor D.O. QUAL FIELD MANAGER: Erin Palacios CFA PREOPERATIVE DIAGNOSIS: Chronic extensor tendinosis, left elbow POSTOPERATIVE DIAGNOSIS: Chronic extensor tendinosis, left elbow PROCEDURE: 1. Open common extensor tendon debridement, left elbow 2. Application of short arm volar fiberglass splint ANESTHESIA: General with regional block ANESTHESIOLOGIST: David Montaño MD IMPLANTS: Arthrex 3.0 mm knotless suture tack anchor OPERATIVE INDICATIONS: Poornima is a 47-year-old tjwue-urda-mlebzaok female who has had persistent pain over [...] in the common extensor in a running bkpdwy-al-ziibt. The distal aspect of the suture was [...] clean and elective. Reza Proctor D.O. [facility] Comment on above: Result Comment: Elec tronically Signed By: Reza Proctor DO\.br\Date and Time Signed: 08/18/22 15:01 EST Operative [...] Using maximal sterile barrier technique per current [facility] guidelines including hand hygeine, Guidance (Ultrasound used [...] patient tolerated the procedure as expected. [facility] Comment on above: Result Comment: Elec tronically Signed By: David Montaño MD\.br\Date and Time Signed: 08/18/22 08:24 EST Outpatient Surgery Discharge Instructionon 08-18-2022 Outpatient Surgery Discharge Instruction [place] [id number] Patient Discharge Instructions PERSON INFORMATION Name: POORNIMA BARKER Date of : 1975 Current Date: 08/18/2022 11:57:26 PHYSICIANS Admitting Physician: Reza Proctor DO Discharge Diagnosis: POORNIMA BARKER has been given the following list of follow-up instructions, prescriptions, and patient education materials: IF UNABLE TO CONTACT YOUR PHYSICIAN AND YOU FEEL IT IS AN EMERGENCY, GO TO THE NEAREST EMERGENCY ROOM OR CALL 911 LUCERO Alfredo CRYSTAL, have received the attached patient education materials/instructions [...] to serve you. Thank you for choosing [facility] HERE ARE THE MEDICATION CHANGES THAT OCCURRED DURING YOUR HOSPITAL STAY [facility] [address] [place], [place] [address], [phone] acetaminophen-hydrocodo ne ([place] 325 mg-5 mg oral tablet) 1-2 tab(s) Oral q4hr; as needed for pain. Refills: 0. docusate (Colace 100 mg Cap) 1 Capsules By Mouth 2 times a day as needed for constipation. Refills: 0. Medications to Continue Taking That Have Changed [facility], [place] [address], [phone] START: ibuprofen (ibuprofen 600 mg Tab) 1 Tablets By Mouth every 8 hours as needed as needed for pain. with food or milk. Refills: 0. Medications to Continue with No Changes Other Medications cranberry (cranberry oral capsule) esomeprazole (Nexium 40 mg Cap-EC) 1 Capsules By Mouth every day. 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 It is therefore advised not to drive until after your first office visit following surgery. Do not drive while taking pain medication. ____ Reza Proctor, DO [facility] [address] [place] [address] Reviewed: (Inserted I (more content not included)... 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 It is therefore advised not to drive until after your first office visit following surgery. Do not drive while taking pain medication. ____ Reza Proctor, DO [facility] [address] [place] [address] Reviewed: [facility] Progress Note-Physicianon Progress Note-Physician Patient: POORNIMA BARKER Age: 47 years Sex: Female : 1975 Associated Diagnoses: None Author: David Montaño MD Postoperative Information Postoperative disposition: Postoperative disposition: To PACU. Optimetrix number: Optimetrix number [id number]. Anesthetic utilized: General. Regional: adductor canal block. Health Status Problem list: All Problems Acid reflux / SNOMED CT 669129887 / Confirmed Endometriosis / SNOMED CT 064240651 / Confirmed History of seizures / SNOMED CT 2091915959 / Confirmed Migraines / SNOMED CT 46968935 / Confirmed Pseudotumor cerebri / SNOMED CT 299039549 / Confirmed Smoker / SNOMED CT 091686253 / Confirmed Added secondary to documentation in [...] Ambulatory Surgery Unit, and To home ). Normal [facility] Comment on above: Result Comment: Elec [...] All Problems Acid reflux / SNOMED CT 633209542 / Confirmed Endometriosis / SNOMED CT 328013242 / Confirmed History of seizures / SNOMED CT 8296869080 / Confirmed Migraines / SNOMED CT 28445034 / Confirmed Pseudotumor cerebri / SNOMED CT 613907012 / Confirmed Smoker / SNOMED CT 910235978 / Confirmed Added secondary to documentation in Social History., Active Problems (6) Acid reflux Endometriosis History of seizures Migraines Pseudotumor cerebri Smoker Histories Past Medical History: No active or resolved past medical history items have been selected or recorded. Family History: No family history items have been selected or recorded. Procedure history: Cholecystectomy (33778743). History of total hysterectomy (3265123310). Excision of cyst on neck (3242830185). Excision of cyst bilat ovaries (6918830496). Colonoscopy (319789783). Procedure on brain ventricular shunt (9331889825). Social History Social & Psychosocial Habits Alcohol [...] EST Height (more content not included)... [facility] Comment on above: Result Comment: Elec tronically Signed By: Danyel HARVEY, David Carrillo\.br\Date and Time Signed: 08/18/22 06:50 EST Consent for Procedure/Surger yon 08-17-2022 Consent for Procedure/Surgery [id number]#1.00C D:127 [facility] Physician Orderon 08-16-2022 Physician Order [id number]#1.0 0CD:127 [facility] BUNon 08-08-2022 Urea nitrogen [Mass/Vol] 10 mg/dL Normal 5-21 [facility] Comment on above: Performed By: #### 2 525706, 9094403, 83723821, 0177393, 4786898, 2985092 ####[facility] [address] [place] [address] CBC w/Indiceson 08-08-2022 Erythrocyte distribution width (RBC) [Ratio] 14.8 % High 10.9-14.2 [facility] Comment on above: Performed By: #### 2 905677, 3168413, 30597177, 3587467, 3915617, 1569837 ####[facility] [address] [place] [address] Hematocrit (Bld) [Volume fraction] 38.8 % Normal 34.0-46.0 [facility] Comment on above: Performed By: #### 2 097605, 5859509, 20877409, 1613015, 6076007, 0797478 ####[facility] [address] [place] [address] Hemoglobin (Bld) [Mass/Vol] 12.9 g/dL Normal 12.0-16.0 [facility] Comment on above: Performed By: #### 2 665882, 8524492, 75081269, 5730168, 9322243, 6002146 ####[facility] [address] [place] [address] MCH (RBC) [Entitic mass] 29.3 pg Normal 27.0-34.0 [facility] Comment on above: Performed By: #### 2 839594, 6685244, 30241922, 8004440, 0736494, 9306270 ####[facility] [address] [place] [id number] MCHC (RBC) [Mass/Vol] 33.4 g/dL Normal 31.4-36.0 [facility] Comment on above: Performed By: #### 2 554304, 4594317, 87269780, 0810414, 0852949, 8858876 ####[place] [address] MCV (RBC) [Entitic vol] 87.7 fL Normal 80.0-100.0 [facility] Comment on above: Performed By: #### 2 758122, 7260125, 58631562, 2264028, 8776894, 9975273 ####[place] [address] Platelet mean volume (Bld) [Entitic vol] 8.3 fL Normal 6.4-10.8 [facility] Comment on above: Performed By: #### 2 404572, 2016054, 39331740, 2720808, 7101980, 8415473 ####[address] [address] Platelets (Bld) [#/Vol] 278.0 E9/L Normal 150.0-500.0 [facility] Comment on above: Performed By: #### 2 889075, 7292568, 01568321, 5307661, 9129091, 6953699 ####[place] [address] RBC (Bld) [#/Vol] 4.4 E12/L Normal 4.3-5.9 [facility] Comment on above: Performed By: #### 2 916374, 5197951, 88286920, 3304595, 7643002, 0919901 ####[place] [address] [place] [address] WBC corrected for nucl RBC Auto (Bld) [#/Vol] 10.7 E9/L Normal 4.0-11.0 [facility] Comment on above: Performed By: #### 2 468057, 7502361, 44434115, 9254930, 6090515, 6200847 ####[facility] [address] [place] [address] CHEMISTRYOrdered By: SYSTEM SYSTEM on 08-08-2022 Anion gap [Moles/Vol] 12 mmol/L Normal 6 - 16 mEq/L F [facility] Remisol Chloride [Moles/Vol] 108 mmol/L Normal 101 - 1 11 mmol/L FT Remisol CO2 [Moles/Vol] 26 mmol/L Normal 21 - 31 mmol/L [facility] Remisol Creatinine [Mass/Vol] 0.9 mg/dL Normal 0.5 - 1.3 mg/dL [facility] Remisol GFR/1.73 sq M.predicted among blacks MDRD (S/P/Bld) [Vol rate/Area] mL/min/1.73 m2 Normal >=59mL/min/1 .73 m2 [facility] Chem S GFR/1.73 sq M.predicted among non-blacks MDRD (S/P/Bld) [Vol rate/Area] mL/min/1.73 m2 Normal >=59mL/min/1 .73 m2 [facility] Chem S Glucose [Mass/Vol] 96 mg/dL Normal 55 - 199 mg/dL FT Remisol Potassium [Moles/Vol] 3.6 mmol/L Normal 3.5 - 5.3 mmol/L FT Remisol Sodium [Moles/Vol] 142 mmol/L Normal 135 - 145 mmol/L [facility] Remisol Urea nitrogen [Mass/Vol] 10 mg/dL Normal 5 - 21 mg/dL [facility] Remisol Consent for Treatmenton 07-26 Consent for Treatment [id number]#1.00C D:127 [facility] Creatinineon 08-08-2022 Creatinine [Mass/Vol] 0.9 mg/dL Normal 0.5-1.3 [facility] Comment on above: Performed By: #### 2 767966, 6235944, 71277003, 8210645, 2513970, 0109464 ####[facility] [address] [place] [address] Glucoseon 08-08-2022 Glucose [Mass/Vol] 96 mg/dL Normal 55-199 [facility] Comment on above: Performed By: #### 2 988277, 5758096, 64726755, 2625623, 2550280, 4628515 ####[facility] [address] [place] [address] HEMATOLOGYOrdered By: Carlos Humphrey on 08-08-2022 Erythrocyte distribution width (RBC) [Ratio] 14.8 % High 10.9 - 14.2 % FT [facility] Hematocrit (Bld) [Volume fraction] 38.8 % Normal 34.0 - 46.0 % FT [facility] Hemoglobin (Bld) [Mass/Vol] 12.9 g/dL Normal 12.0 - 16.0 gm/dL FT [facility] MCH (RBC) [Entitic mass] 29.3 pg Normal 27.0 - 34.0 pg FT [facility] MCHC (RBC) [Mass/Vol] 33.4 g/dL Normal 31.4 - 36.0 gm/dL FT [facility] MCV (RBC) [Entitic vol] 87.7 fL Normal 80.0 - 100.0 fL FT [facility] Platelet mean volume (Bld) [Entitic vol] 8.3 fL Normal 6.4 - 10.8 fL FT [facility] Platelets (Bld) [#/Vol] 278.0 E9/L Normal 150.0 - 500.0 E9/L FT [facility] RBC (Bld) [#/Vol] 4.4 E12/L Normal 4.3 - 5.9 E12/L FT [facility] WBC corrected for nucl RBC Auto (Bld) [#/Vol] 10.7 E9/L Normal 4.0 - 11.0 E9/L [facility] HemeAutoSS Lyteson 08-08-2022 Anion gap [Moles/Vol] 12 mmol/L Normal 6-16 [facility] Comment on above: Performed By: #### 2 125599, 2823469, 07699890, 0449263, 2567762, 6067358 ####[facility] [address] [place] [address] Chloride [Moles/Vol] 108 mmol/L Normal 101-[address] [facility] Comment on above: Performed By: #### 2 521892, 5261764, 65602490, 6291354, 5987682, 3688830 ####[facility] [address] [place] [address] CO2 [Moles/Vol] 26 mmol/L Normal 21-31 [facility] Comment on above: Performed By: #### 2 063886, 6579242, 74200925, 5281864, 5561936, 6660999 ####[facility] [address] [place] [address] Potassium [Moles/Vol] 3.6 mmol/L Normal 3.5-5.3 [facility] Comment on above: Performed By: #### 2 560115, 6906476, 81784648, 4647621, 9154951, 0593854 ####[facility] [address] [place] [address] Sodium [Moles/Vol] 142 mmol/L Normal 135-145 [facility] Comment on above: Performed By: #### 2 [id number], [id number], [id number], [id number], [id number], [id number] ####[facility] [address] [place] [address] XR Chest 2 Viewson 3 XR Chest [...] V. Transcribed by: CANDELARIA Technologist: ORB Normal [facility] eGFRon 08-08-2022 GFR/1.73 sq M.predicted among blacks MDRD (S/P/Bld) [Vol rate/Area] mL/min/{1.73_m2} Normal >=59 [facility] Comment on above: Order Comment: Order added by Discern Expert. Result Comment: eGFR is race adjusted. AA=. Performed By: #### 2 [id number], [id number], [id number], [id number], [id number], [id number] ####[facility] [address] [place] [address] GFR/1.73 sq M.predicted among non-blacks MDRD (S/P/Bld) [Vol rate/Area] mL/min/{1.73_m2} Normal >=59 [facility] Comment on above: Order Comment: Order added by Discern Expert. Result Comment: Parking Lot Attendant And Cashier reginaldo kidney disease could be indicated at eGFR's of less than 60 mL/min/1.73m2. Kidney failure is indicated at less than 15 mL/min/1.73m2. Performed By: #### 2 [id number], [id number], [id number], [id number], [id number], [id number] ####[facility] [address] [place] [address] CT HEAD WO CONon 10-31-2021 CT HEAD [...] ROSANNE PERKINS Date: 2021-10-31 14:25 Normal [facility] XR CHEST 1 Von 10-21-2021 XR CHEST [...] by: ЕЛЕНА ROBERT Date: 2021-10-21 15:50 Normal [facility] XR KUB 1 VIEWon 10-21-2021 XR KUB 1 VIEW EXAM: XR KUB 1 VIEW, XR SKULL LESS THAN 4 VIEWS Clinical Indication: Benign intracranial hypertension Comparison: None FINDINGS: Images of the skull shows a 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 There is no abnormal dilatation of bowel loops. No significant air fluid levels. There is no pneumoperitoneum. Right-sided [employer] LOAD[employer] SUPER[employer]OR shunt is seen, with the tip in the area of the bladder. Cholecystectomy changes are seen. There are no clinically significant osseous abnormalities noted. IMPRESSION: Unremarkable abdominal series The shunt tube begins in the right cerebral hemisphere, and terminates in the pelvis. No obvious discontinuity or kink SL: [id number] Electronically authenticated by: ЕЛЕНА ROBERT Date: 2021-10-21 16:49 Normal [facility] Vital Signs Date Time Vital Sign Value Performing Clinician Facility 03-28-2024 09:08-0400 Body height 154.94 cm MD Birgit Bobo Work Phone: [facility] 03-28-2024 09:08-0400 Body mass index (BMI) [Ratio] 34 kg/m2 MD Birgit Bobo Work Phone: [facility] 03-28-2024 09:08-0400 Body weight 81.64 kg MD Birgit Bobo Work Phone: [facility] 01-07-2024 13:41-0400 Diastolic blood pressure 53 mm[Hg] MD Birgit Bobo Work Phone: [facility] 01-07-2024 13:41-0400 Heart rate 64 /min MD Birgit Bobo Work Phone: [facility] 01-07-2024 13:41-0400 Respiratory rate 16 /min MD Birgit Bobo Work Phone: [facility] 01-07-2024 13:41-0400 SaO2% (BldA) [Mass fraction] 100 % MD Birgit Bobo Work Phone: [facility] 01-07-2024 13:41-0400 Systolic blood pressure 94 mm[Hg] MD Birgit Bobo Work Phone: [facility] 01-07-2024 11:34-0400 Body height 154.94 cm MD Birgit Bobo Work Phone: [facility] 01-07-2024 11:34-0400 Body weight 82.1 kg MD Birgit Bobo Work Phone: [facility] 12-13-2023 13:10-0400 Body height 152.4 cm MD Birgit Bobo Work Phone: [facility] 12-13-2023 13:10-0400 Body mass index (BMI) [Ratio] 36.3 kg/m2 MD Birgit Bobo Work Phone: [facility] 12-13-2023 13:10-0400 Body weight 84.36 kg MD Birgit Bobo Work Phone: [facility] 10-19-2023 11:28-0400 Diastolic blood pressure 60 mm[Hg] MD Birgit Bobo Work Phone: [facility] 10-19-2023 11:28-0400 Heart rate 55 /min MD Birgit Bobo Work Phone: [facility] 10-19-2023 11:28-0400 Respiratory rate 16 /min MD Birgit Bobo Work Phone: [facility] 10-19-2023 11:28-0400 SaO2% (BldA) [Mass fraction] 96 % MD Birgit Bobo Work Phone: [facility] 10-19-2023 11:28-0400 Systolic blood pressure 96 mm[Hg] MD Birgit Bobo Work Phone: [facility] 10-19-2023 09:21-0400 Body height 152.4 cm MD Birgit Bobo Work Phone: [facility] 10-19-2023 09:21-0400 Body weight 84.36 kg MD Birgit Bobo Work Phone: [facility] 10-03-2023 10:40-0400 Body height 158.75 cm [facility] 10-03-2023 10:40-0400 Body mass index (BMI) [Ratio] 34 kg/m2 [facility] 10-03-2023 10:40-0400 Body weight 85.72 kg [facility] 09-07-2023 11:27-0400 Body height 158.75 cm [facility] 09-07-2023 11:27-0400 Body mass index (BMI) [Ratio] 34 kg/m2 [facility] 09-07-2023 11:27-0400 Body weight 85.84 kg [facility] 09-07-2023 11:27-0400 Diastolic blood pressure 70 mm[Hg] [facility] 09-07-2023 11:27-0400 Heart rate 78 /min [facility] 09-07-2023 11:27-0400 Systolic blood pressure 106 mm[Hg] [facility] 06-29-2023 09:45-0500 Body height 158.75 cm Birgit Bobo Other [facility] 06-29-2023 09:45-0500 Body mass index (BMI) [Ratio] 34.19 kg/m2 Birgit Bobo Other [facility] Other 06-29-2023 09:45-0500 Body weight 86.18 kg Birgit Bobo Other [facility] 06-29-2023 09:45-0500 Diastolic blood pressure 70 mm[Hg] Birgit Bobo Other [facility] 06-29-2023 09:45-0500 Systolic blood pressure 101 mm[Hg] Birgit Bobo Other [facility] 08-18-2022 14:08-0500 Heart rate 65 /min [facility] 08-18-2022 14:08-0500 SaO2% (BldA) [Mass fraction] 95 % [facility] 08-18-2022 14:08-0500 Diastolic blood pressure 73 mm[Hg] [facility] 08-18-2022 14:08-0500 Mean blood pressure 85 mm[Hg] [facility] 08-18-2022 14:08-0500 Systolic blood pressure 110 mm[Hg] [facility] 08-18-2022 14:08-0500 Respiratory rate 18 /min [facility] 08-18-2022 13:04-0500 Heart rate 71 /min Reza Proctor [facility] 08-18-2022 13:04-0500 SaO2% (BldA) [Mass fraction] 92 % [facility] 08-18-2022 12:10-0500 SaO2% (BldA) [Mass fraction] 94 % [facility] 08-18-2022 12:06-0500 Heart rate 75 /min [facility] 08-18-2022 12:05-0500 Respiratory rate 18 /min Reza Brown [facility] 08-18-2022 12:04-0500 Diastolic blood pressure 70 mm[Hg] Reza Brown [facility] 08-18-2022 12:04-0500 Mean blood pressure 80 mm[Hg] Reza Brown [facility] 08-18-2022 12:04-0500 Systolic blood pressure 101 mm[Hg] Reza Brown [facility] 08-18-2022 12:04-0500 Body temperature 97.52 [degF] Reza Brown [facility] 08-18-2022 11:55-0500 Body temperature 97.7 [degF] Reza Brown [facility] 08-18-2022 11:55-0500 Diastolic blood pressure 66 mm[Hg] Reza Brown [facility] 08-18-2022 11:55-0500 Mean blood pressure 74 mm[Hg] Reza Brown [facility] 08-18-2022 11:55-0500 Respiratory rate 12 /min Reza Brown [facility] 08-18-2022 11:55-0500 Systolic blood pressure 90 mm[Hg] Reza Brown [facility] 08-18-2022 11:45-0500 Mean blood pressure 79 mm[Hg] Reza Brown [facility] 08-18-2022 11:45-0500 Respiratory rate 16 /min Reza Brown [facility] 08-18-2022 11:30-0500 Mean blood pressure 83 mm[Hg] Reza Brown [facility] 08-18-2022 11:30-0500 Respiratory rate 12 /min Reza Proctor [facility] 08-18-2022 11:02-0500 Body temperature 97.16 [degF] Reza Proctor [facility] 08-18-2022 10:55-0500 Respiratory rate 10 /min Reza Proctor [facility] 08-18-2022 06:40-0500 Mean blood pressure 83 mm[Hg] Reza Proctor [facility] 08-18-2022 06:40-0500 Blood Pressure Location Reza Proctor [employer] [facility] 08-18-2022 06:40-0500 Heart rate 88 /min Reza Proctor [employer] [facility] 08-18-2022 06:39-0500 Body temperature 98.06 [degF] Reza Proctor [facility] 08-18-2022 06:38-0500 Blood Pressure Location Reza Proctor [employer] [facility] 08-16-2022 09:15-0500 Body height 158.75 cm Birgit Bobo Other [facility] Other 08-16-2022 09:15-0500 Body mass index (BMI) [Ratio] 35.45 kg/m2 Birgit Bobo Other [facility] Other 08-16-2022 09:15-0500 Body weight 89.36 kg Birgit Bobo Other [facility] Other 08-16-2022 09:15-0500 Diastolic blood pressure 68 mm[Hg] Birgit Bobo Other [facility] Other 08-16-2022 09:15-0500 SaO2% (BldA) [Mass fraction] 97 % Birgit Bobo Other [facility] Other 08-16-2022 09:15-0500 Systolic blood pressure 108 mm[Hg] Birgit Bobo Other [facility] Other 08-08-2022 15:39-0500 Diastolic blood pressure 77 mm[Hg] [facility] 08-08-2022 15:39-0500 Heart rate 71 /min [facility] 08-08-2022 15:39-0500 Mean blood pressure 90 mm[Hg] [facility] 08-08-2022 15:39-0500 Systolic blood pressure 117 mm[Hg] [facility] 08-08-2022 15:39-0500 Heart rate 77 /min [facility] 08-08-2022 15:39-0500 SaO2% (BldA) [Mass fraction] 100 % [facility] 08-08-2022 15:38-0500 Diastolic blood pressure 81 mm[Hg] [facility] 08-08-2022 15:38-0500 Mean blood pressure 98 mm[Hg] [facility] 08-08-2022 15:38-0500 Systolic blood pressure 133 mm[Hg] [facility] 08-08-2022 15:38-0500 Respiratory rate 16 /min [facility] 11-15-2021 11:00-0400 Body height 158.75 cm Seb Bobo Other [facility] Other 11-15-2021 11:00-0400 Body mass index (BMI) [Ratio] 33.83 kg/m2 Seb Jeramie Other [facility] [employer] Other 11-15-2021 11:00-0400 Body weight 85.28 kg Sebken Bobo Other [facility] Other Encounters Encounter Date Encounter Type Care Provider Facility Start: 05-24-2024 ambulatory [facility] Start: 03-28-2024 End: 03-28-2024 ambulatory Birgit Bobo Facility:[facility] Start: 03-28-2024 End: 03-28-2024 Patient encounter procedure MD Birgit Bobo Work Phone: [facility] Work Phone: Start: 03-12-2024 End: 03-12-2024 Nursing evaluation of patient and report Breath Test [facility] Work Phone: [facility] Comment on above: Diarrhea, unspecifie d type (Primary Dx) Start: 01-07-2024 Non-patient / Non-visit MD Lillian Bobo Work Phone: [facility] Work Phone: Start: 01-07-2024 End: 01-07-2024 Admission to same day surgery center MD Birgit Bobo Work Phone: [facility] Work Phone: Start: 01-07-2024 End: 01-07-2024 ambulatory MD Birgit Bobo Work Phone: [facility] Work Phone: Start: 12-13-2023 End: 12-13-2023 Patient encounter procedure MD Birgit Bobo Work Phone: [facility] Work Phone: Start: 11-07-2023 Non-patient / Non-visit MD Lillian Bobo Work Phone: [facility] Work Phone: Start: 11-02-2023 End: 11-02-2023 Patient encounter procedure MD Birgit Bobo Work Phone: [facility] [place] Work Phone: Start: 11-02-2023 End: 11-02-2023 ambulatory MD Birgit Bobo Work Phone: [facility] Work Phone: Start: 10-24-2023 Non-patient / Non-visit MD Lillian Bobo Work Phone: [facility] Work Phone: Start: 10-22-2023 Non-patient / Non-visit MD Lillian Bobo Work Phone: [facility] Work Phone: Start: 10-19-2023 Non-patient / Non-visit MD Lillian Bobo Work Phone: [facility] Work Phone: Start: 10-19-2023 End: 10-19-2023 Admission to same day surgery center MD Birgit Bobo Work Phone: [facility] Work Phone: Start: 10-19-2023 End: 10-19-2023 ambulatory MD Birgit Bobo Work Phone: [facility] Work Phone: Start: 10-03-2023 End: 10-03-2023 ambulatory [facility] Work Phone: Start: 10-03-2023 End: 10-03-2023 Patient encounter procedure [facility] Work Phone: Start: 09-07-2023 End: 09-07-2023 ambulatory [facility] Work Phone: Start: 09-07-2023 End: 09-07-2023 Patient encounter procedure [facility] Work Phone: Start: 08-14-2023 Non-patient / Non-visit [facility] [employer] Work Phone: Start: 07-17-2023 End: 07-17-2023 ambulatory Birgit Bobo Other [facility] Other Start: 07-17-2023 Telephone encounter Birgit Bobo [facility] Start: 06-29-2023 End: 06-29-2023 ambulatory Birgit Bobo Other [facility] Other Start: 06-29-2023 Office outpatient vi sit 15 minutes Birgit Bobo [facility] Start: 06-29-2023 End: 06-29-2023 Patient encounter procedure [facility] Work Phone: Start: 10-11-2022 End: 02-26-2023 ambulatory Reza Proctor [facility] Start: 10-11-2022 End: 02-25-2023 Recurring Reza Proctor [facility] Start: 08-23-2022 End: 08-23-2022 ambulatory Birgit Bobo Other [facility] Other Start: 08-23-2022 Telephone encounter Birgit Bobo [facility] Start: 08-21-2022 End: 08-21-2022 ambulatory Birgit Bobo Other [facility] Other Start: 08-21-2022 Telephone encounter Birgit Jeramie [facility] Start: 08-18-2022 End: 08-18-2022 ambulatory Reza Proctor [facility] Start: 08-18-2022 End: 08-18-2022 Admission to same day surgery center Reza Proctor [facility] Start: 08-16-2022 End: 08-16-2022 ambulatory Birgit Bobo Other [facility] Other Start: 08-16-2022 Office outpatient vi sit 15 minutes Birgit Bobo [facility] Start: 08-14-2022 End: 08-15-[address] BIRGIT BOBO Facility: Start: 08-08-2022 End: 08-09-2022 ambulatory Reza Proctor Facility:[facility] Start: 08-08-2022 End: 08-08-2022 Patient encounter procedure Reza Proctor [facility] Start: 01-23-2022 End: 02-18-[address] BIRGIT BOBO Facility:[facility] Start: 01-12-2022 End: 01-13-[address] BIRGIT BOBO Facility:[facility] Start: 01-09-2022 Gynecological examination normal Birgit Bobo Other [facility] Other Start: 11-15-2021 End: 11-15-2021 ambulatory Seb Bobo Other [facility] Other Start: 11-15-2021 Office outpatient ne w 30 minutes Seb Bobo [facility] Start: 10-31-2021 End: 11-01-[address] BIRGIT BOBO Facility:[facility] Start: 10-21-2021 End: 10-22-[address] BIRGIT BOBO Facility:[facility] Procedures Date Procedure Procedure Detail Performing Clinician Start: 03-28-2024 Supine abdominal X-ray MD Birgit Bobo Work Phone: Start: 01-07-2024 Flexible fiberoptic sigmoidoscopy MD Lillian Bobo Work Phone: Start: 11-07-2023 E coli Shiga Toxin EIA MD Birgit Bobo Work Phone: Start: 11-07-2023 Salmonella/Shigella Screen MD Birgit ramírez Work Phone: Start: 11-02-2023 Computed tomography of abdomen and pelvis with contrast MD Birgit Bobo Work Phone: Start: 10-19-2023 Esophagogastroduodenoscopy MD Birgit Johnson un Work Phone: Start: 08-18-2022 Debridement Reza Proctor Start: 12-24-2017 Screening mammography Birgit Bobo Other Cholecystectomy Reza Proctor Colonoscopy Reza Proctor Excision of cyst Reza Proctor H/O: surgery Seb Bobo Other History of total hysterectomy Reza Proctor Procedure on brain v entricular shunt Reza Proctor Plan of Treatment Date Care Activity Detail Author Start: 03-28-2024 Elastase.pancreatic [Mass/mass] in Stool [facility] Start: 02-24-2024 Covid-19 Vaccine ( season) Covid-19 Vaccine () [facility] Start: 02-24-2024 Influenza vaccination Influenza Vacc ine (#1) [facility] Start: 01-07-2024 [facility] Start: 10-19-2023 [facility] Start: 09-07-2023 Patient referral [facility] Work Phone: Start: 2020 Diabetes Screening Diabetes Screenin g [facility] Start: 2020 Lipid panel Lipid Screening [facility] Start: 2020 Screening for malign ant neoplasm of colon [facility] Start: 2015 Screening for malign ant neoplasm of breast Mammogram Screening [facility] Start: 1996 Screening for malign ant neoplasm of cervix Cervical Cancer Screening [facility] Start: 1994 Hepatitis B Vaccine (1 of 3 - 19+ 3-dose series) Hepatitis B Vaccine (1 of 3 - 19+ 3-dose series) [facility] Start: 1994 Urine microalbumin profile DTaP,Tdap,Td Vaccine (1 - Tdap) [facility] Start: 1993 Anxiety Screening Anxiety Screening [facility] Start: 1993 Depression Screening Depression Scre ening [facility] Start: 1993 Hepatitis C screening Hepatitis C Sc porsha [facility] Start: 1993 HIV screening HIV Screening [facility] MG Breast - bilatera l Screening [facility] Patient Education [facility] Work Phone: Patient referral [facility] Work Phone: Payers Date Payer Category Payer Unknown [id number] 2023 Self-pay 2022 Private Health Insurance 1975 Unknown [id number] 2.16.84 [id number] 1975 Unknown [id number] 2.16.84 [id number] 1975 Unknown [id number] 2.16.84 [id number] 1975 Unknown [id number] 2.16.84 [id number] 1975 Unknown [id number] 2.16.84 [id number] 1975 Unknown [id number] 2.16.8 [id number] 1975 Unknown [id number] 2.16.8 [id number] 1975 Unknown [id number] 2.16.8 [id number] 1959 Unknown [id number] 2.16.8 [id number] Unknown [employer] [id number] Unknown [id number] 2.16.8 [id number] Unknown [id number] 2.16.8 [id number] Unknown [id number] 2.16.8 [id number] Unknown [id number] 2.16.8 [id number] Social History Date Type Detail Facility Start: 03-12-2024 Sex Assigned At F [facility] Start: 08-08-2022 Tobacco smoking status Light tobacco smoker (finding) [facility] Start: 1975 Sex Assigned At Female F [facility] Start: 10-19-2023 End: 01-07-2024 Tobacco smoking status NHIS Smoker (finding) [facility] Tobacco smoking status [facility] Tobacco smoking consumption unknown [facility] Start: 03-12-2024 History of Social function [facility] National Score (1-100), lower number is lower risk 91 [facility] Start: 1975 Sex assigned at Not on file C [facility] Medical Equipment Procedure Code Equipment Code Equipment Origin al Text Equipment Identifier Dates ULNAR NERVE TRANSPOSITION Reza Proctor DO 08/18/22 Unknown Elbow L [employer] Start: 08-18-2022 ULNAR NERVE TRANSPOSITION Reza Proctor DO 08/18/22 Unknown Elbow L FDA Start: 08-18-2022 Goals Date Patient Goal Desired Activity /State Functional Status Date Assessment Result Facility 08-08-2022 Functional Status No [facility] Clinical Notes 11-15-2021 to 03-12-2024 Shelley Gamboa, NEO.CHEMISTRY QUALITY CONTROL TECHNICIAN - 03/12/2024 5:04 PM EDT Note Date & Type Note Facility 03-12-2024 History of Present illness Narrative Glucose - SIBO CPT 15703 Hydrogen Breath Test Poornima Barker 1975 March 12, 2024 Referring Physician: Imelda Jiang DO Indication: NSG TEST INDICATIONS: DIARRHEA R19.7 Weight: 183 lbs Location: [facility] Duration of Test: 2 Hours Hydrogen Methane CO2 MEASURED CORRECTION FACTOR TESTERS NAME Baseline 9:15 am 3 5 4.0 1.37 Maxine Nowakger RMJoe Test Solution Given: 100 gm Glucose 10 oz Liquid Maxine Lee RMA #1 - 15 minutes 9:30 am 2 6 3.4 1.61 Maxine Lee RMA #2 - 30 minutes 9:45 am 4 8 2.9 1.89 Maxine Lee, RMA #3 - 45 minutes 10:00 am 5 7 3.2 1.71 Maxine Lee, RMA #4 - 60 minutes 10:15 am 11 9 3.1 1.77 Maxine Lee, RMA #5 - 75 minutes 10:30 am 12 8 3.3 1.66 Maxine Lee, RMA #6 - 90 minutes 10:45 am 12 9 3.2 1.71 Maxine Lee, RMA #7 - 105 minutes 11:00 am 10 8 3.3 1.66 Maxine Lee, RMA #8 - 120 minutes 11:15 am 11 9 3.1 1.77 Maxine Lee RMA Guidelines Baseline < 10 ppm Hydrogen (H2) > 20 ppm over baseline Methane (CH4) > 20 ppm over baseline Final Test Results: Negative physician Signature:Shelley Gamboa APRN.CNP documented in this encounter [facility] 01-07-2024 Procedure note [facility] 10-19-2023 History and physical note Note Date/Time October 19, 2023 9:55am [facility] [address] [place] [address] Gastroenterology H&P Signed Patient: Poornima Barker MR#: [id number] : 1975 Acct:[id number] Age/Sex: 48 / F Adm Date: 4 Loc: Room: Type: [facility] Attending Dr: Imelda Jiang DO Copies to: DO Birgit Garcia MD~ Date of Service: 10/19/2023 HISTORY [...] signed by Imelda Jiang DO> 10/19/23 0955 [facility] Work Phone: 1(111) 381-273504-26-2024 Procedure [facility]04-26-2024 [facility]* Encounter Date Diagnosis Assessment Notes Treatment Notes Treatment Clinical Notes Jun, Major depressive disorder with single episode, remission status unspecified (ICD-10 - F32.9) Jun, Insomnia, unspecified (ICD-10 - G47.00) [facility] Other 01-05-2024 Evaluation note* Encounter Date Diagnosis Assessment Notes Treatment Notes Treatment Clinical Notes Jun, Major depressive disorder with single episode, remission status unspecified (ICD-10 - F32.9) call or come in 1 month for recheck gave counseling options Jun, Insomnia, unspecified (ICD-10 - G47.00) as above [facility] Other 02-24-2023 Evaluation + Plan noteExtracted from: Title:ANES Post-operative Note Author:David Montaño MD Date:08/18/22 Plan Transfer/Discharge: Transfer/Discharge Discharge when meets criteria ( From PACU to Ambulatory Surgery Unit, and To home ). Extracted from: Title:ANES Pre-operative Note Author:Marito Montaño MD Date:08/18/22 Plan Citizen Of [place] Society of Anesthesiologists (ASA) physical status classification: Class II. Anesthetic Preoperative Plan: Anesthesia General. Regional Interscalene block. 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 It is therefore advised notto drive until after your first office visit following surgery. Do not drive while taking pain medication. Reza Proctor, DO [facility] [address] [place] [address] Reviewed: 08/18/2022 06:11:36 Post Op Patient Instructions - FT (Custom) [facility]02-23-2023 Note [id number]:127[facility] 08-16-2022 Evaluation note* Encounter Date Diagnosis Assessment Notes Treatment Notes Treatment Clinical Notes Jul, Other non-recurrent acute nonsuppurative otitis media of both ears (ICD-10 - H65.193) Stop augmentin. Switch to zpack. Finish all antibiotic. Get OTC debrox for R ear treatment for cerumen. 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 (ICD-10 - Z98.2) [place] [employer] Other evaluation + Plan note Future Appointments Appointment Date:08/18/2022 09:30:00 AM Scheduled Provider: Location:[facility] Other Evaluation note* Diagnosis Onset Date Resolution Status Screening mammogram for breast cancer acute [facility] Work Phone: Evaluation note* Diagnosis Onset Date Resolution Status Epigastric abdominal pain ac [place] GERD (gastroesophageal reflux disease) acute Screening mammogram for breast cancer acute Chronic constipation acute Epigastric abdominal pain ac [place] GERD (gastroesophageal reflux disease) acute Screening for colon cancer a cute [facility] Work Phone: Evaluation note* Diagnosis Onset Date Resolution Status Diarrhea acute Epigastric abdominal pain ac [place] GERD (gastroesophageal reflux disease) acute [facility] Work Phone: Evaluation note* Diagnosis Onset Date Resolution Status Diarrhea acute [facility] Work Phone: evaluation note* Diagnosis Diarrhea, unspecified type- Primary [facility] Author Imelda Jiang [facility] January 07, 2024 12:35pm Note Date/Time January 07, 2024 12:3 5pm [facility] [address] [place] [address] Gastroenterology H&P Signed Patient: Poornima Barker MR#: [id number] : 1975 Acct:[id number] Age/Sex: 48 / F Adm Date: 4 Loc: Room: Type: [facility] Attending Dr: Imelda Jiang DO Copies to: DO Birgit Garcia MD~ Date of Service: 01/07/2024 HISTORY [...] signed by Imelda Jiang DO> 01/07/24 12[address] [facility] Work Phone: [facility] general Narrative - Reported* Type Description Date Medical History Migrande headaches Surgical History Procedure:cyst removal;Disease: 1979 Surgical History Procedure:Tonsillectomy;Disease : 1992 Surgical History Procedure:laproscopic;Disease: 1999 Surgical History Procedure: section;Dise ase: 2004 Surgical History Procedure:gallbladder;Disease: 2005 Surgical History Procedure:Hysterectomy;Disease: 2005 Surgical History Procedure:shunt in head;Disease : 2009 Hospitalization History See [facility] Other [facility] general Narrative - Reported* Type Description Date Medical History Migraine headaches Medical History Pseudotumor cerebri syndrome Medical History Transfusion history Surgical History Procedure:cyst removal;Disease: 1979 Surgical History Procedure:Tonsillectomy;Disease : 1992 Surgical History Procedure:laproscopic;Disease: 1999 Surgical History Procedure: section;Dise ase: 2004 Surgical History Procedure:gallbladder;Disease: 2005 Surgical History Procedure:Hysterectomy;Disease: 2005 Surgical History Procedure:shunt in head;Disease : 2009 Hospitalization History See [facility] Other History general Narrative - Reported* Type Description Date Medical History Migraine headaches Medical History Pseudotumor cerebri syndrome Medical History Transfusion history Surgical History Procedure:cyst removal;Disease: 1979 Surgical History Procedure:Tonsillectomy;Disease : 1992 Surgical History Procedure:laproscopic;Disease: 1999 Surgical History Procedure: section;Dise ase: 2005 Surgical History Procedure:gallbladder;Disease: 2005 Surgical History Procedure:Hysterectomy;Disease: 2005 Surgical History Procedure:shunt in head;Disease : 2009 Surgical History Left elbow surgery 07/2022 Hospitalization History See Sx Hx [facility] Other Hospital course Narrative No data available for this section [facility] No data available for this section [facility] No data available for this section [facility] for visit NarrativeReferral Birgit Bobo [facility] Other Reason for Referral Reason *FU 11/24 Papilled carlos and Visual Field Exams with DETAILED Interpretations and Reports Please Diagnosis 1 Pseudotumor cerebri (G93.2) Referral Organization [facility] urosurgery Referring Provider First Name Seb Referring Provider Last Name Jeramie Referring Provider Specialty Neurologica l Surgery Referred Organization [facility] Referred Provider Robi Parada Referred Address [address] [place],[address] Referred Provider Specialty Ophthalmolog y Referral Priority Routine General Notes Fore, Yvonne M 022 07:22:14 AM >Received and fax referral today Summary Purpose Family History No Family History Records Found Relationship Condition Age at Onset Recorded Date/T [...] Malignant neoplasm of breast Unknown Advance Directives No Advanced Directives Records Found Advance Directive Response Recorded Date/ Time Advance [...] Chief Complaint Amb Documentation ulcers gerd/epigastric pain/dr jeramie referred screening, epigastric pain screening, epigastric pain Reason for Visit Epigastric abdominal pain GERD (gastroesophageal reflux disease) Screening mammogram for breast cancer Chronic constipation Epigastric abdominal pain GERD (gastroesophageal reflux disease) Screening for colon cancer Chief Complaint Amb Documentation ulcers gerd/epigastric pain/dr jeramie referred screening, epigastric pain screening, epigastric pain [...] Team Status: Active Member Role Status Dates Birgit Bobo MD Primary Care Provider Active Team Status: Inactive Member Role Status Dates Birgit Bobo MD Primary Care Provider Active Start: October 19, 2023 End: October 19, 2023 Imelda Jiang DO Attending Provider Active St art: October 19, 2023 End: October 19, 2023 Team Status: Active Member Role Status Dates Birgit Bobo MD Primary Care Provider Active Start: October 19, 2023 Imelda Jiang DO Attending Provider, Other Provider Active Start: October 19, 2023 Team Status: Active Member Role Status Dates Birgit Bobo MD Primary Care Provider Active Start: October 22, 2023 Eri Willett Attending Provider Active Start: October 22, 2023 Team Status: Active Member Role Status Dates Birgit Bobo MD Primary Care Provider Active Start: October 24, 2023 Tayla Vargas CMA Attending Provider Active St art: October 24, 2023 Team Status: Inactive Member Role Status Dates Birgit Bobo MD Primary Care Provider Active Start: November 02, 2023 End: November 02, 2023 Imelda Jiang DO Attending Provider Active St art: November 02, 2023 End: November 02, 2023 Team Status: Active Member Role Status Dates Birgit Bobo MD Primary Care Provide r, Attending Provider Active Start: November 07, 2023 Team Status: Inactive Member Role Status Dates Birgit Bobo MD Primary Care Provider Active Start: December 13, 2023 End: December 13, 2023 Imelda L Ly , DO Attending Provider Active St art: December 13, 2023 End: December 13, 2023 Team Status: Inactive Member Role Status Dates Birgit Bobo MD Primary Care Provider Active Start: January 07, 2024 End: January 07, 2024 Imelda L Ly , DO Attending Provider Active St art: January 07, 2024 End: January 07, 2024 Team Status: Active Member Role Status Dates Birgit Bobo MD Primary Care Provider Active Start: January 07, 2024 Imelda L Ly , DO Attending Provider, Other Provider Active Start: January 07, 2024 Team Status: Active Member Role Status Dates Birgit Bobo MD Primary Care Provider Active Start: August 14, 2023 MARTITA Walker Attending Provider Active Start : August 14, 2023 Team Status: Inactive Member Role Status Dates Birgit Bobo MD Primary Care Provide r, Attending Provider Active Start: September 07, 2023 End: September 07, 2023 Team Status: Inactive Member Role Status Dates Birgit Bobo MD Primary Care Provider Active Start: October 03, 2023 End: October 03, 2023 Imelda L Ly , DO Attending Provider Active St art: October 03, 2023 End: October 03, 2023 Team Status: Inactive Member Role Status Dates Birgit Bobo MD Attending Provider Active St art: June 29, 2023 End: June 29, 2023 Team Status: Inactive Member Role Status Dates Birgit Bobo MD Primary Care Provider Active Start: March 28, 2024 End: March 28, 2024 Imelda L Ly , DO Attending Provider Active St art: March 28, 2024 End: March 28, 2024 [employer]ra[employer] Installer Relationship Specialty Start Date End Date Birgit Bobo MD [address] [facility] [place] [address] PCP - General Family Medicine 03/12/24 INFORMATION SOURCE (unrecogn ized section and content) DATE CREATED AUTHOR 08/17/2022 [facility] DATE CREATED AUTHOR 'S ORGANIZ ATION 02/25/2023 [facility] DATE CREATED AUTHOR AUTHOR'S ORGANIZ ATION 04/02/2024 [facility] DATE CREATED AUTHOR AUTHOR'S ORGANIZ ATION 05/25/2024 [facility] REASON FOR VISIT (unrecogniz ed section and [...] or prosecute any alcohol or drug abuse patient.[facility] FOR RECORDS PERTAINING TO PATIENTS WHO [...] BE BASED ON THE PRIMARY CLINICAL RECORDS. [employer] provides no warranty or guarantee of the accuracy or completeness of information in this document.
[2024-07-26 11:32] LABS: Thyroid Stimulating Hormone 1.781 uIU/mL (0.358-3.740)
== END 2024-07-26 10:24 | disposition home or self-care (01) ==
LOC: LAB 10:23
PROVIDERS: PCP Family Medicine; Visit Provider Internal Medicine Cardiovascular Disease
DX: R55 Syncope and collapse (principal)
CPT/HCPCS: 36415; 82533; 84443

== ENCOUNTER 2024-12-12 09:35 | Outpatient (OUT) | payer OTHER, SELFPAY ==
--- NOTE | 2024-12-12 09:39 | CT_ITS ---
The [address] [address] Patient Name: POORNIMA RIVERA MRN: [id number] date: 1975 Sex: F Assigned Patient Location: CT Current Patient Location: CT Accession/Order Number: [id number] Exam Date: 12/12/2024 10:19 Report Date: 12/12/2024 10:25 At the request of: DINESH BOBO MD Procedure: CT head/brain wo con CT BRAIN WITHOUT CONTRAST: CLINICAL HISTORY: Headache, presence of intracranial shunt Z98.2 COMPARISON: 05/24/2024 TECHNIQUE: Contiguous axial unenhanced images were obtained through the brain. This CT exam was performed using one or more following dose reduction techniques: Automated exposure control, adjustment of the mA and/or kV according to patient size, or use of iterative reconstruction technique. FINDINGS: The right-sided ventriculoperitoneal shunt is present through a frontal approach. The tubing traverses the ventricles and terminates in the region of the left caudothalamic groove, similar to the prior. There are small ventricles which are similar in size and position. There are no developing areas of abnormal attenuation. There is no hemorrhage, mass effect or extra-axial collections. The imaged paranasal sinuses and mastoid air cells are clear. CT/CT head/brain wo con IMPRESSION: STABLE VENTRICULOPERITONEAL SHUNT AND VENTRICULAR SIZE. NO ACUTE INTRACRANIAL ABNORMALITY. Impression dictated by: Ela Campa M.D. 12/12/2024 10:25 AM Dictation Location: [place] [address] Electronically authenticated by: [id number] Y Date: 12/12/2024 10:25
--- OUTSIDE RECORDS SUMMARY | 2024-12-12 09:49 | XMS_ITS | CCD ---
Author Organization [facility] CliniSyri Care Team Providers Care Assembled Wood Products Repairer Name Role Phone Seb Bobo Unavailable BIRGIT BOBO Primary Care Physician JERAMIE, DR BIRGIT Franco Admitting Unavailable BOBO, [...] BOBO, DR BIRGIT Franco Primary Care Unavailable ZIEBNATANAEL, DR ROSANNE Devi Consulting Unavailable BOBO, DR BIRGIT Franco Consulting Unavailable BOBO, DR BIRGIT Franco Admitting Unavailable BOBO, DR BIRGIT Franco Attending Unavailable BOBO, DR BIRGIT Franco Primary Care Unavailable ZIEBNATANAEL, DR ROSANNE Devi Consulting Unavailable BOBO, DR BIRGIT Franco Consulting Unavailable Birgit Bobo Unavailable Reza Proctor Attending Unavailable Reza Proctor Referring Unavailable Hitesh, Reza Diaz Admitting Unavailable Reza Proctor Attending Unavailable Hitesh, Reza A Referring Unavailable Hitesh, Reza A Admitting Unavailable Reza Proctor A Attending Unavailable Reza Proctor A Referring Unavailable Hitesh, Reza A Admitting Unavailable MD Birgit Bobo Primary Care Provider [phone] DO Imelda Jiang Attending Provider [phone] MD Birgit Bobo Primary Care Provider DO Imelda Jiang Attending Provider Birgit Bobo MD Primary Care Provider [phone] VAN SALCEDO Attending Unavailable Birgit Bobo MD Primary Care Provider Ly DOImelda Attending Provider Ly, Imelda L Attending Unavailable Ly, Imelda L Admitting Unavailable Birgit Bobo Primary Care Unavailable Ly, Imelda L Admitting Unavailable Ly, Imelda L Attending Unavailable Birgit Bobo Primary Care Unavailable Ly, Imelda L Admitting Unavailable Ly, Imelda L Attending Unavailable Birgit Bobo Primary Care Unavailable Ly, Imelda L Admitting Unavailable Ly, Imelda L Attending Unavailable Birgit Bobo Primary Care Unavailable Allergies Allergy Classification Reported Allergen(s) Allergy Type Date of Onset Reaction(s) Facility (18 sources) Sulfanilamide; Translations: [SULFANILAMIDE] Drug Allergy 12-20-19 23 [facility] (4 sources) Sulfonamides (Antibiotic); Translations: [sulfa drugs] Drug allergy Respiratory failure [facility] (1 source) Sulfonamides (Antibiotic) Drug allergy (disorder) 12-03-19 13 [facility] (15 sources) cefdinir Drug Allergy 09-07-19 24 Unknown, [facility] (2 sources) Amoxicillin Drug Allergy 01-12-20 07 AMOXICILLIN [employer] [facility] [email or web address] Other (2 sources) Pseudoephedrine Drug Allergy Unknown [facility] Other (12 sources) sulfADIAZINE Drug Allergy 09-07-19 24 Comment:[facility] (2 sources) Substance with sulfonamide structure and antibacterial mechanism of action (substance) Drug allergy 01-12-20 07 SULFA [facility] Other (2 sources) Allergies Reconciled Propensity to adverse reactions Unknown [facility] Other (2 sources) patient allergy list reviewed by nurse or physicia Propensity to adverse reactions 01-16-20 Comment:Done [facility] Other (2 sources) 12 Hour Decongestant Allergy to substance 09-05-19 24 [facility] (1 source) cefdinir Drug Allergy 10-15-19 [facility] (1 source) sulfADIAZINE Drug Allergy 10-15-19 [facility] Medications Current Medications Medication Drug Class(es) Dates Sig (Normalized) Sig (Original) Albuterol Sulfate 90 mcg/actuation HFA aerosol inhaler (2 sources) Start: 10-14-2024 take 1 puff(s) by inhalation every four to six hours as needed Albuterol Sulfate 90 mcg/actuation HFA aerosol inhaler Active 2 PUFF INHALATION EVERY 4-6 HOURS as needed for bronchospasm 6.7 October 14, 2024 12:00am amoxicillin 875 mg / clavulanate 125 mg [...] 4 more days for 5 Jul, Active Cranberry Fruit (11 sources) Non-Standardized Food Allergenic Extract, Non-Standardized Plant Allergenic Extract Start: 10-08-2023 take 1 capsule by mouth once daily Cranberry Fruit 400 mg capsule Active 400 MG PO Daily October 08, 2023 12:00am administer with a meal Start: 10-08-2023 take 400 mg by mouth once divine y Cranberry Active 400 MG PO Daily October [...] constipation, # 20 cap(s), Refills(s) 0, Pharmacy: [facility], 163, cm, 08/09/22 5:10:00 EST, Height/Length Dosing, 91.2, kg, 08/09/22 5:10:00 EST, Weight Dosing Start Date: 08/18/22 Status: Ordered escitalopram 20 mg oral tablet (20 sources) Serotonin Reuptake Inhibitor Start: 08-19-2024 End: 11-20-2024 take 1 tablet by mouth once daily Escitalopram Oxalate 20 mg tablet Active 0 .ROUTE .COMPLEX November 20, 2024 11:45am TAKE 1 TABLET BY MOUTH EVERY DAY Start: 07-04-2024 End: 08-19-2024 Escitalopram Oxalate 20 mg t ablet Discontinued 20 MG PO .COMPLEX July 04, 2024 10:39am August 19, 2024 4:52pm 20mg orally Start: 10-26-2023 End: 07-04-2024 take 1 tablet by mouth once daily Escitalopram Oxalate 20 mg tablet Discontinued 0 .ROUTE .COMPLEX June 04, 2024 9:29am July 04, 2024 10:40am TAKE 1 TABLET BY MOUTH EVERY DAY Start: 08-14-2023 End: 10-26-2023 take 1 tablet by mouth once daily Escitalopram Oxalate 20 mg tablet Discontinued 20 MG PO Daily August 14, 2023 4:16pm October 26, 2023 10:35am [employer] tablet Orally Once a day; Note: Source Status: Refill; Provider: Jeramie Franco Start: 06-29-2023 take 1 tablet by meseret every twenty-four hours Escitalopram Oxalate 10 MG 1 tablet Orally Once a day for 30 day(s) Jun, Active take 1 tablet by meseret every twenty-four hours Escitalopram Oxalate 20 MG 1 tablet Orally Once a day for 30 days Active esomeprazole 40 mg delayed release oral capsule (8 sources) Proton Pump Inhibitor Start: 08-08-2022 take 1 capsule by mouth once daily Nexium 40 mg Cap-EC 40 mg = 1 cap(s), Oral, Daily, Refills(s) 0, Gas Start Date: 08/08/22 Status: Ordered take 1 capsule by mo [facility] every twenty-four hours NexIUM 24HR 20 MG 1 capsule Orally Once a day Active fluconazole 150 mg oral tablet (3 sources) [...] milk, # 50 tab(s), Refills(s) 0, Pharmacy: [facility], 163, cm, 08/09/22 5:10:00 EST, Height/Length Dosing, 91.2, kg, 08/09/22 5:10:00 EST, Weight Dosing Start Date: 08/18/22 Status: Ordered Start: 08-08-2022 take 1 tablet by meseret th every six hours as needed for pain ibuprofen 600 mg Tab 600 mg = 1 tab(s), Oral, q6hr, PRN as needed for pain, Refills(s) 0 Start Date: 08/08/22 Status: Ordered ondansetron 4 mg disintegrating oral tablet (13 sources) Serotonin-3 Receptor Antagonist Start: 07-04-2024 take 1 tablet by mouth every eight hours as needed for nausea and vomiting Ondansetron 4 mg tablet,disintegrating Active 4 MG PO Every 8 hours as needed for nausea and vomiting July 04, 2024 1:00am Start: 10-03-2023 End: 12-13-2023 take 1 tablet by mouth every eight hours as needed for nausea and vomiting Ondansetron Hcl 4 mg tablet Discontinued 4 MG PO Every 8 hours as needed for nausea and vomiting 2 October 03, 2023 12:00am December 13, 2023 1:12pm pantoprazole 40 mg delayed release oral tablet (20 sources) Proton Pump Inhibitor Start: 12-13-2023 take 1 tablet by mouth twice daily Pantoprazole 40 mg tablet,delayed release (DR/EC) Active 40 MG PO Twice daily 180 90 December 13, 2023 12:00am Start: 10-26-2023 End: 12-13-2023 take 1 tablet by mouth once daily Pantoprazole 40 mg tablet,delayed release (DR/EC) Discontinued 0 .ROUTE .COMPLEX November 30, 2023 11:24am December 13, 2023 1:33pm TAKE 1 TABLET BY MOUTH DAILY Start: 09-07-2023 End: 10-26-2023 take 1 tablet by mouth once daily Pantoprazole 40 mg tablet,delayed release (DR/EC) Discontinued 40 MG PO Daily September 07, 2023 12:00am October 26, 2023 10:35am Tirzepatide (Weight Loss) (1 source) Start: 11-21-2024 Tirzepatide (Weight Loss) (Zepbound) 2.5 mg/0.5 mL pen injector Active 2.5 MG SUBCUT every week November 21, 2024 12:00am for 4 weeks traZODone hydrochloride 100 mg oral tablet (20 sources) Serotonin Reuptake Inhibitor Start: 10-26-2023 End: 11-20-2024 take 1 tablet by mouth once daily at bedtime Trazodone 100 mg tablet Active 0 .ROUTE .COMPLEX November 20, 2024 11:45am TAKE 1 TABLET BY MOUTH ONCE DAILY AT BEDTIME Start: 08-14-2023 End: 10-26-2023 take 1 tablet by mouth once daily at bedtime Trazodone 100 mg tablet Discontinued 100 MG PO Daily at bedtime [...] tablet (2 sources) Opioid Agonist Start: 08-18-2022 [place] 325 mg-5 mg oral tablet See Instructions, for pain, 40 tab(s), Refill(s) 0, 1-2 tab(s) Oral q4hr, [facility], 163, cm, 08/09/22 5:10:00 EST, Height/Length Dosing, 91.2, kg, 08/09/22 5:10:00 EST, Weight Dosing Start Date: 08/18/22 Status: Ordered benzonatate 200 mg oral capsule (2 sources) Non-narcotic Antitussive Start: 10-14-2024 End: 11-21-2024 Benzonatate 200 mg capsule Discontinued 200 MG PO 2-3 TIMES PER DAY as needed for cough October 14, 2024 12:00am November 21, 2024 10:57am Cholestyramine Resin (6 sources) Bile Acid Sequestrant Start: 11-06-2023 End: 12-13-2023 take 1 dose by mouth twice daily Cholestyramine (With Sugar) 4 gram powder Discontinued 4 GM PO Twice daily 378 November 06, 2023 12:00am December 13, 2023 1:11pm administer w/meal; avoid other meds within 1hr before or 4-6hr after dose Start: 11-06-2023 End: 12-13-2023 take 1 dose by mouth twice daily Cholestyramine (With Sugar) Discontinued 4 GM PO Twice daily 378 November 06, 2023 12:00am December 13, 2023 1:11pm administer w/meal; avoid other meds within 1hr before or 4-6hr after dose colestipol hydrochloride 1000 mg oral tablet (5 sources) Bile Acid Sequestrant Start: 03-28-2024 End: 07-04-2024 Colestipol 1 gram tablet Discontinued 1 GM PO Twice daily 60 March 28, 2024 12:00am July 04, 2024 10:27am doxycycline hyclate 100 mg oral tablet (2 sources) Tetracycline-class Drug Start: 10-14-2024 End: 11-21-2024 take 1 tablet by mouth twice daily Doxycycline Hyclate 100 mg tablet Discontinued 100 MG PO Twice daily October 14, 2024 12:00am November 21, 2024 10:57am famotidine 40 mg oral tablet (9 sources) Histamine-2 Receptor Antagonist Start: 10-03-2023 End: 05-30-2024 take 1 tablet by mouth once daily at bedtime Famotidine 40 mg tablet Discontinued 40 MG PO Daily at bedtime October 03, 2023 12:00am May 30, 2024 11:32am rifAXIMin 550 mg oral tablet (8 sources) Rifamycin Antibacterial Start: 08-11-2024 End: 11-21-2024 take 1 tablet by mouth three times daily Rifaximin (Xifaxan) 550 mg tablet Discontinued 550 MG PO Three times daily 42 September 22, 2024 4:17pm November 21, 2024 11:10am SUMAtriptan 50 mg oral tablet (16 sources) Serotonin-1b and Serotonin-1d Receptor Agonist Start: 09-05-2023 End: 10-03-2023 take 1 tablet by mouth once daily as needed Sumatriptan Succinate 50 mg tablet Discontinued MG PO September 05, 2023 12:00am October 03, 2023 10:42am FreeTextSig: TAKE 1 TABLET BY MOUTH EVERY DAY NEEDED Oral; Note: Source Status: Not-Takingundefine dPRN; Refills: 0; Qty: 9 Each; Provider: JERAMIE MONTIEL take 1 tablet by meseret th once daily as needed SUMAtriptan Succinate 50 MG TAKE 1 TABLE T BY MOUTH EVERY DAY NEEDED Oral for 9 Days Not-Taking/PRN Problems Active Problems Problem Classification Problem Date Documented Da te Episodic/Chronic Abdominal pain (19 sources) Abdominal pain; Translations: [Abdominal pain, other specified site] Onset: 3 09-07-2023 Episodic Endometriosis (3 sources) Endometriosis (clinical) 08-08-2022 Chronic Esophageal disorders (19 sources) Gastroesophageal reflux disease; Translations: [Gastro-esophageal reflux [...] BILATERAL] Onset: 3 Episodic Other gastrointestinal disorders (4 sources) Irritable bowel syndrome with diarrhea; Translations: [Irritable bowel syndrome with diarrhea] 07-04-2024 Chronic Other gastrointestinal disorders (5 sources) Irritable bowel syndrome with diarrhea; Translations: [Irritable bowel syndrome] Onset: 5 07-04-2024 Chronic Other gastrointestinal disorders (9 sources) Chronic constipation; Translations: [Other constipation] 10-03-2023 Episodic Other gastrointestinal disorders (3 sources) Other constipation; Translations: [Constipation, unspecified] 10-03-2023 Episodic Other gastrointestinal disorders (7 sources) Diarrhea; Translations: [Diarrhea, unspecified] 12-13-2023 Episodic Other nervous system disorders (16 [...] mass index (BMI) 34.0-34.9, adult] Chronic Other nutritional; endocrine; and metabolic disorders (2 sources) Obesity; Translations: [Class 2 obesity with body mass index (BMI) of 36.0 to 36.9 in adult] 11-21-2024 Chronic Other screening for suspected conditions (not mental disorders or infectious disease) (20 sources) Patient encounter status; Translations: [Encounter for screening mammogram for malignant neoplasm of breast] 09-07-2023 Episodic Other upper respiratory infections (4 sources) Acute maxillary sinusitis; Translations: [Acute recurrent maxillary sinusitis] Onset: 6 10-17-2024 Episodic Otitis media and related conditions (2 [...] secondary to d ocumentation in Social History. Syncope (6 sources) Syncope and collapse; Translations: [Syncope and collapse] Onset: 5 Episodic Unclassified (3 sources) History of clinical finding in subject 08-08-2022 Past or Other Problems Problem Classification Problem Date Documented Da te Episodic/Chronic Allergic reactions (2 sources) Contact dermatitis; Translations: [...] left humerus Onset: 08-18-2022 10-11-2022 Episodic Other gastrointestinal disorders (3 sources) Diarrhea, unspecified; Translations: [Diarrhea] Onset: 03-28-2024 12-13-2023 Episodic Other injuries and conditions due to [...] [Pain in joint, hand] Onset: 01-27-2014 Episodic Residual codes; unclassified (2 sources) Tobacco [...] Test Name Value Interpretation Reference Range Facility CT enterographyon 11-07-2024 CT enterography [facility] [place] [address] CT Scan Report Signed Patient: Poornima Barker MR#: [id number] : 1975 Acct:[id number] Age/Sex: 49 / F ADM Date: 11/07/24 Loc: CT Room: Type: [facility] Attending Dr: Imelda Jiang DO Copies to: Imelda Jiang DO Ordering Provider: Imelda Jiang DO Date of Service: 11/07/24 CT/CT enterography: K58.0 - Irritable bowel syndrome with diarrhea CT ABDOMEN AND PELVIS WITH INTRAVENOUS CONTRAST: (Enterography protocol) CLINICAL HISTORY: Abdominal pain diarrhea COMPARISON: None TECHNIQUE: Spiral images were obtained through the abdomen and pelvis following the administration of intravenous contrast. Enterography protocol was utilized. This CT exam was performed using one or more following dose reduction techniques: Automated exposure control, adjustment of the mA and/or kV according to patient size, or use of iterative reconstruction technique. FINDINGS: Lung Bases: [Bibasilar scarring] Organs:Hepatic steatosis. Gallbladder has been removed. Pancreas spleen and adrenal glands appear unremarkable. No enhancing renal mass or hydronephrosis. Abdominal aorta appears normal in caliber.[ GI: Stomach is grossly unremarkable. Duodenum is normally positioned. Normal small bowel fold pattern is seen. No abnormal small bowel wall thickening or enhancement. No small bowel dilatation. Terminal ileum appears unremarkable. Appendix is normal. No colonic abnormality is seen.[ Pelvis:[Urinary bladder is grossly unremarkable. Uterus has been removed.] Peritoneum/Retroperiton eum:The DIAL BUFFER shunt tubing is seen coiled within the pelvis. Trace free fluid seen within the pelvis. No free air or lymphadenopathy.[ Abd wall/Bones:No acute findings. Osseous structures demonstrate degenerative change. No sacroiliitis.[ CT/CT enterography IMPRESSION: No CT evidence of small bowel abnormality. Hepatic steatosis. Impression dictated by: Oscar Roper Jr., D.O. 11/07/2024 10:07 AM Dictation Location: [place] [address] Transcribed By: [facility] 11/07/24 1007 Dictated By: Oscar Roper Jr, DO 11/07/24 1005 Signed By: 11/07/24 1007 Normal [facility] Calprotectin [Mass/mass] in StoolOrdered By: Imelda Jiang on 10-03-2024 Calprotectin (Stl) [Mass/Mass] Calprotectin [Mass/mass] in Stool 0-120 [facility] Comment on above: Concentration Interp retation Follow-Up< 5 - 50 ug/g Normal None>50 -120 ug/g Borderline Re-evaluate in 4-6 weeks >120 ug/g Abnormal Repeat as clinically indicatedPerformed at: [facility] [place] [address] [id number] Director: Dasha Lowery MD, Phone: [phone] Calprotectin, Fecalon 2024 Calprotectin, Fecal 65 Normal 0-120 [facility] Comment on above: Result Comment: Conc entration Interpretation Follow-Up < 5 - 50 ug/g Normal None >50 -120 ug/g Borderline Re-evaluate in 4-6 weeks >120 ug/g Abnormal Repeat as clinically indicated Performed at: [facility] - [facility] [address] [id number] Fire Prevention Chief: Dasha Lowery MD, Phone: [phone] PERFORMED BY: [address] [address] PATHOLOGIST FISHER TRAMMEL NET RODNEY QUEZADA M.D. Performed By: #### C ALPROTECT #### [facility] , Laboratory - Chemistry and C hemistry - challengeon 07-26-2024 TSH Qn 1.781 m[IU]/L 0.358-3.740 [facility] Office Visiton 07-25-2024 Follow-up visit [id number] Chanda Barker 1975 F Date Provider Department Center 07/25/2024 [facility] Family History Problem Relation Age of Onset Coronary artery disease Mother Stroke Father Family Status - Relation Status Age at Mother Father Level of Service:33458 PA OFFICE/OUTPATIENT NEW MODERATE MDM 45 MINUTES Reason for Visit and Comments: Syncope [506] - Had syncopal episode back in Apr 2024. Echo was performed a few weeks ago. She did not feel chest pain, SOB, or palpitations. Dizziness [151778] Normal [facility] Pancreatic Elastase, Stoolon 03-28-2024 Pancreatic Elastase, Stool 612 Normal >200 [facility] Comment on above: Result Comment: Resu lt Units: ug Elast./g Severe Pancreatic Insufficiency: <100 Moderate Pancreatic Insufficiency: 100 - 200 Normal: >200 Performed at: [facility] [address] [id number] Fire Prevention Chief: Dasha Lowery MD, Phone: [phone] PERFORMED BY: [address] [address] PATHOLOGIST FISHER TRAMMEL NET SHAW ANGELO M.D. Performed By: #### E LASTASE STOOL #### [facility] , XR KUBon 03-28-2024 XR KUB [facility] [place] [address] [place] [id number] XRay Report Signed Patient: Poornima Barker MR#: [id number] : 1975 Acct:[id number] Age/Sex: 48 / F ADM Date: 03/28/24 Loc: XD Room: Type: [facility] Attending Dr: Imelda Jiang DO Copies to: [...] John Love M.D.03/28/2024 11:37 AM Dictation Location: [place] [address] Transcribed By: [facility] 03/28/24 113 Dictated By: John Love II, MD 03/28/24 113 Signed By: 03/28/24 113 [facility] 01-07-2024 L Specimen: [id number] Received: 01/07/24 Status: RACHEL Polanco Num: [id number] Spec Type: Surgical Subm Dr: Imelda Jiang DO Tissues: A Colon Biopsy (RANDOM COLON BX R/O MICROSCO) Procedures: HE/2, Gross/Micro L4 Age/ Patient Sex Location Account Attending Physician Poornima Barker 48/F [id number] Imelda Jiang DO SPEC NUM: [id number] RECD: 01/07/24 STATUS: RACHEL POLANCO NUM: [id number] IDALIA: 01/07/24-[address]: Imelda Jiang DO ENTERED: 01/07/24 [...] cm, entirely submitted in A1. CPT Codes 80753 Specimen: [id number] Received: 01/07/24 Status: RACHEL Polanco Num: [id number] Spec Type: Surgical Subm Dr: Imelda Jiang DO Tissues: A Colon Biopsy (RANDOM COLON BX R/O MICROSCO) Procedures: KAYLYNN, Gross/Micro L4 Patient: Poornima Barker [id number] (Continued) Signed (signature on file) Jeremiah Potts MD 01/09/24 1542 Normal [facility] Elastase.pancreatic [Mass/ma ss] in Stoolon 11-07-2023 Elastase.pancreatic (Stl) [Mass/Mass] 232 >200 [facility] Comment on above: Result Units: ug [address] st./g Severe Pancreatic Insufficiency: <100 Moderate Pancreatic Insufficiency: 100 - 200 Normal: >200Performed at: - [facility] [address] [id number] Director: Dasha Lowery MD, Phone: [phone] No Panel Informationon 11-06 Clostridium difficile (PCR)(LAB) Negative NEGATIVE [facility] Miscellaneous Test Comment See comment [facility] Comment on above: Specimen Source: ST - Stool - Stool - 700.100 Stool Campylobacter Culture Res 1 See comment [facility] Comment on above: [facility], No Panel InformationOrdered By: Birgit Bobo on 11-07-2023 E coli Shiga Toxin EIA [facility] Salmonella/Shigella Screen [facility] Nonvisit Note - OTon 023 Nonvisit Note - OT , pt cxl'd in remind system, no reason available. Normal [facility] Nonvisit Note - OTon 023 Nonvisit Note - OT pt cxl'd in remind system, no reason available. Normal [facility] Nonvisit Note - OTon 023 Nonvisit Note - OT Pt. cx, d/t an emergency. Normal [facility] OT - Home Exercise Programon 11-08-2022 OT - Home Exercise Program [id number]#1.00 CD:127 Normal [facility] OT - Progress Noteson 2022 OT - Progress Notes [id number]#1.00 CD:127 [facility] OT - Orderson 10-20-2022 OT - Orders [id number]#1.00 CD:127 [facility] OT - Assessmentson OT - Assessments [id number]#1.00C D:127 [facility] OT - Consentson 10-19-2022 OT - Consents [id number]#1.00C D:127 [facility] OT - Home Exercise Programon 10-19-2022 OT - Home Exercise Program [id number]#1.00C D:127 [facility] Coding Summary.on 10-12-2022 Coding Summary. CD:[id number] Ww+ PGhlYWQ+SI6QQQWdU84gpWU mmR0pC6FSKOcGRfohQQCOJV eZZuDdugAeXA5viQPjUPMl IC8+RU2dYZFvIpuwtDCay2Y 6kXG5S31kzj3vTPguqIS6IG HnRrBamftls8zpaBs4WRenV mluOyBt IWLscS29ETB6dJ96Bl57tIB myKTis1hflTs5QzHdFSCcHA J7oTwuQTkze6KlIUHcU59yn VFxh8Z4 ZFUhnWcqkVKvVrOucFI3cJ3 cLBaucavuv5vfrcwbTfg3ya 50eIEvi1T7mRR7F8FdwnQ6G GJvbGQg WrjnpQLPfP1gmpoyl6etvrl wSeEsIWKzRVl7BNf7ORTfcO tgWiYsCH85OWX6YVCvbvTgE 2FsLWFs rXxdIqW3w0X0Ve8KS2OXTpa iN3DQICSSZHyenGI+PC90cj 19H5FeTujaKkv6HTVbYDO0k LS3mM5y XAKlEMwvq4U4qDI5K3WdrrT vfk9xk5grMGTcFVoxE06nrN Bix3J9ZVJxzZB9IDMdbBebU iBzaG93 Oyc+EKCkwUwsg7BtRoipr9k rw9cwpCa6YwpgKLHlbkPrlJ xcXNQ5q5OqUd4nPONyzRY0h PY0uD1p EzIgCdI2XSbyR810CfYxmCH kCojhR48xJ5EjdTV+PHRyPj o8KKEciVxnMY8qC5ZlKGNkb mctbGVm bFmdQP9fGMTiubsdGUWsvH1 pCLZbG0h9RjYoJeZ1TNurJ0 DtQBQsnvunUz09yS1aYdCwS sL6YZnv H9XpwrG5TTXrcVGiLXpuVRK 6Y17iq2O5IRLdSOBeHGP7oL C8oY9hpOljtyxutMRjhJcsx mVydGlj HWjqAOfbE607SXRmyHuwHfB vZGluZyBEYXRlOiAgMDQvMj AvMjAyMzwvdGQ+FJVkSOA3a WxlPSAn vQQdFYlmAz4zsKzjwMiaYO5 jHBVtemymPXXgzS7bGXOhyO SawXvzSE2rRTOywjcmu940D iAxMHB0 INRerRKmC2WnaX0eWdGwXKD pVFMpQ6RcqJUoFUajG690AO eaZkU5IROtqzEsO8EyBPHsc WduOiB0 f1M7Sw9Ps4GvytlfP9ZxnBC bZjUeElrySXv1S1LdHozhkG I+JN61QDKtIU75ISa6MLF1x WxlPSdi GSJsT4HuqV6sNmMfWGKlTYX kOyc+PHRhYmxlIHdpZHRoPS ovFHFrJhMhoAlxHW3zJd3fL GVyLWNv tLzutUGkHeVhc3tiUBGnSVc nQW7nbKwfL1UytEK0FCXuy0 p7Va85H85eI0CcfCG+PGNvb XT8iTB2 rJ5dYgIfRpX9DJyvQ095JoV zeTXjWllyw8mul0voqKs3Og Y1NRBagaQakNuoZIZ8p9XoG w16A60l IHdpZHRoPSIxNSUiIHZhbGl lqg5giH1rCi2+TETsqJO0gP E9oT4eHsDbPfW4ACzoL499I nRvcCIv Crdun1bdh8qcjEk0VnPvWWP hgrZrgZbbIGY2e2YtNm94S8 LcjHees5AoVdt8tn84oKLap 1Z2tKP9 Z7OcWQVkdgwscDRevKalNH9 yVXVjlahyEMRsnB0kACPmE1 q5XnDoLbY8LKreK7ZkwmX4A GJvbGQg GXHnmRTVrW3nfdvxm2ibjot oAdOfWGTbMKp4RFy9UFRunV jdUcMzXYA3DlT1AMM3dTIkb A2fxTjp svhyeP6gIhf+QRL4sLQxzOT AKQ5lHdnbwRJ+PMTpBOA1gB vzIXzdLTQbsN7iEUVxI6y3S iAwLjA1 SWrpQ1IskhX3YHVdkYSqJYH gzPAMgH0znexdh0purzooQm YyQLYuOFk5MBk7DSAtoNaiU iBsZWZ0 OvS4IQF9yAUmmR5shBmjquh skD9jTww+OunhkIldUEQ3TV i2S9BaJwv2GCOjkEqhKP7kx GFkZGlu Kp5mzOcyiAbpCI7yJAKohif wd814MbIjz9jmQDEsuAQtLJ klNLE1W98ju5S9UCXrCKKhV UH8pLT3 dB5hgOifpnpytFVsyCfcyxB ffTusUMeyJIwmP728DCOmoT fcEaCyYZk9C9NgBfo3KBSix SwbWY0a dFIwUZmhNj3wzPnqlRukCA9 cJKZshmkpn044HuLhp2lzFP IfnWGpEBocJSA8W67ts8F4G CMwMDAw ASA5zMO5tY4mqLrsovmloAC mdDsgdmVydGljYWwtYWxpZ2 90RZUusFsqXaMuqLm0X3TeY kr1YATm rDbkMC9oyFWtERhtYg4bvGr kmEuqKM7yIYNcbxnhb841Xh Ree3ktRLBueIOaEFbiKSV3U 48os8V1 ZTMwOENgFXT2yXU3fS2jiWs nbjogbGVmdDsgdmVydGljYW lpMPsoL350XIMmePamSxHhu GllbnQg VOuwIVl0Z1AyRclfkDI+PC9 6OOXxGC48wZSbgGPzj4zzlP c2EvBoYSIzDVC6gNvuPIqaw 3JkZXIt U71nuSPms6P5WROltYbgeTJ bBuTlxDT4mP9cQUvoqwlko4 ilowerZamcq8lvlw95tL59R 29sIHdp ZHRoPSIzMCUiIHZhbGlnbj0 dhV9nOi6+ZTDpuHZ0nFE3aP 6wNTOuSlM0EOvvN401GlIhh CIvPjxj m3nkz7eafIw5OkD7PTCngzB tjPkoNRU0o4CzXb13Z72lDV dpZHRoPSIyMCUiIHZhbGlnb w9lzE4x Ii8+XKKqsII9kGI8vY8uIpH xZeT8VEveM314NeIjmHLdZe fgQ80hE2AcwAU+LGTuKym1Z CBzdHls WB2jpFBjIZeiZk3dCOS9ArE cCiVeUIduQ6SnMEIpwncwde rheER9ESZtNNJmcG46Kg1tn DogMTBw rOICvO7lgrtnz8cfzlvwQwI kOUUlNLh4CBt9XXRzzHobWk TdXXO6JfG9BTR5vIMlyJ5ch Glnbjog aC4lN1EaOIVadiztRv20xF0 cOtQzVbT1XVpdNjb+VkVJVE qpMWAFJGGZZRn7D7TkTyv3T CBzdHls BL5tnDHoCPuaZs9dcKmjwQx nFU8bKRZtxbjiBGTihA3mXX TmhQEqjGgnHF4oNWIqcupam 250OiAx SHF2JILvkBQbU2OkoX7fDuR xIAFlRUPzX3QorCPaVFabW0 26MGrwMzD6OCUixpSbB9PzE WFsaWdu VdV4j0E6Fh5mRy8mMB1kVTr 8AE78SD92aIJfo9Z5uXW5I4 KaNRCbcnunnnzwmCZ3LXYoB DUwaW47 gTAuKMraXv0ha8Y9e943YFN jRCVeiT91Qr7foConJNIagZ NNwF1jqumig0krskesKiLpM DAwMDt0 YRj6AZQmbZixNsWhKYC4UtX 7GIY3nACxqO5nsUqywqlgsO 9wOyc+ZLmiNPDgwzW7T4IyL tc0RYQn qSgySO7aiIUyTVdaPd9tpIh xtYsfBM8jKLVrqhkpKBQumE 1aBZCbgKBuoJwzWQ9kZKAlj apln468 YhYrGLI0UHAetDUjZ2TbjV2 qEtLxHCTwGANwA9OypELjNM pwM914SHuyQuN8AXFrfhEzJ 2FsLWFs hEaxGcP8w5F4Xz3DSE0fpPC 8Q5JrQcf3LSQptCswDK4edH FpMVxdTd9exIdheEyzNM3hI TBpbjtw RBMhzL3fKCDvaUMcoHrnIM4 jINEvsjail603KuLrEOF3TZ KumNCuL4ZifT1zEeIgHIAwY AVsK0Zm gNJuLWcvN123LNgnXyZ5THW hevRbC4EeVGIzbPpmVpY8i2 I0Oe3YYMY7uwPityc3O6IoP jwvdHI+ IF22ZHXmPC86sEGlmCDqq4l reUm4DpRwYPOoDRW0iXgmCK bgf1AmDKPaO60lxORvt3O2O GNvbGxh kWSyCzVreJU2gQ1dXNqhjmf px6edliwxZycwe8lpjz59bZ 84L55wJHvyIXZaVWBrHDEaT HZhbGln tq3lkA7cBn4+NZMkhCK6yZW 9nO6sNlLbSwF0QFckN802Sq SkmRZoCethz7mtk7fzbZv5D jIwJSIg azVdmBpkQFP7l5WqLq85Z07 sIHdpZHRoPSIyMCUiIHZhbG pcew2vhQ5zPx0+LT3km7cay l76kL53 dHI+CHJiXJD8lOvdIIkfKVO tqB4aAFleWiX2AZOhDeQkcO 52hANzAYpdYi4ceLowlSvgN N5rOVCg fgkdk698KrJci5rePXRlrHE gSPbtJLT4J51aj6E7OTBdTB PlXIE9iOI4bP3hdKpquqovx GVmdDsg atGmrRufIUclGEsuG143AKV waLbjFcBnlJWdI7ivemXPSW 1lOjwvdGQ+ZCXcGRH2hOqtJ SdwYWRk fC9aMRKgA0q1WrIrTtS1LPi dC9XndkO9MWUikJItTBFnjT VKfD8doyklq8igvzcdLzIsI DAwMDt0 GYm7LJRgbYslIaTmOJY3KlY 4JIK5bDUfxR0hfOscdenqoA 9wOyc+RklOOjwvdGQ+PHRkI GC1kSxe MBqxAKCgbO8pMCIfH7r1YwP tLuH1GByzT8VoruV3PDHrqR QwTKTgdIHNlK0cvzhuo8hsw jogIzAw QRMiHSp2HWq4HDEwzCqsRfQ pPUB4MmD3SYG5oIWwwK1elE zxcdslkF8eNph+TVJOOjwvd GQ+PHRk OYI6yTowDStmSZHxhU6fCVN tB6y3ByHxQvE1UTrhM0Rcxa I6UTAamGJhXMTocYNGzI0ru dtof0yj mxagZkYjZCExJXk6TDf8IQF noPdyDaJuJTA6RtZ8MDU3rT DbeK7ubWngqhzgwJ7wYdh+U ZQ7YXR5 BA95WE17A3AkPifgoZZbvQI +PHRhYmxlIHdpZHRoPScxMD AmPvUkdHfeGR9iRc9tHSPkH WNvbGxh cHNlOiBj (more content not included)... [facility] Consent for Treatmenton 09-23 Consent for Treatment [id number]#1.00C D:127 [facility] OT - [place] 10-11-2022 OT - Orders [id number]#1.00C D:127 [facility] PT - [place] 10-11-2022 PT - Orders [id number]#1.00 CD:127 [facility] Comment on above: Other Comment: ot... not pt [employer] 0 3-09-2023 [employer] [id number]#1.00C D:127 Normal [facility] Coding Summary.on 08-30-2022 Coding Summary. CD:[id number] Gh0 bWw+PGhlYWQ+CZ0MRCMpT22 krSVfdT0jI3UDSCgAGrnaYN TIAImRRaJdnrTnOB9suOLuO XJu IC8+CN3vYOQgHmwluVWwl5H 5pAI8U38mal2eZJpfnHI4KG DeNzTayfdfd1ydnSu1NYbpD mluOyBt KLFgoH52JAR3yD92Qh33aDK tgCSra3ghpAd8OwNuOCVeLZ E3sAhaGHaol4DaFGTsI91jy LZal9P4 WWAcmWujqPHsDnUcgYY3bK5 qNIzofzppx5nyrmfvKwv1bg 51hLQvt8P4vNY0M5HhjhR3K GJvbGQg PowkgDJOuQ9cnqxyv5znjwr dMqRyPUVlMOh7WDx2LWEdfH vuGxAtNP36JDS6DAYyrpRlN 2FsLWFs uSrsFoS9v7O1Sk9AP1WYBgp lG0QTLLHOULiuvGL+PC90cj 14Z0XgZqjnJaz4QRKrHSE8w HG9mA6b YRReEXiha8V8uVL6T6FromS cku3ly7mbAQKkLCabE18eaH Jcj6I1UTDiyIX9ZQGscKvjL iBzaG93 Oyc+AOZvoJyoh8CoGxnsp2d ga2vgdMi7YgqbGCJmigUrfD pzMDU9w8FzBn2zSKXdsUE8h CP3bG8d RuGaJzD7QWpgZ515ClKdrTH xXlmgX92yO0FcgEM+PHRyPj e7HLMgfZsiOL1cF5FbRWTnq mctbGVm kIafZD2rUYJlcsezQHFbzT7 mZJMaY7a0YpOdFxR1RSraB9 VoSUJkeribOq25xH7mBoDcA eK3NXlj C8OzkzX7DEBxpKUmEFxzKNH 6L65ec9V6QJZcVPEcHUO8gD Q0cU8qhFjfvonheBTsyJnpc mVydGlj AZndEGiaZ517DMBtmAghWmZ vZGluZyBEYXRlOiAgMDMvMD gvMjAyMzwvdGQ+IXKmYGI5j WxlPSAn xNOgHQmiBc9ibMztqYapDX5 hYXBzxfmdIANodQ2vEUVfoN IzvEshUS6aUHBlxvheo693P iAxMHB0 QCAcoSDpK3FtjB0uRxYcBTX iTHGqA5BcmCJfZMfxZ396WD swEhU3ZHSgliUsW2InRRVnm WduOiB0 d0H6Lw0Pf6EhdueiV7RtrOO fQhCeIqyhDQd2S5YoHohyqX I+YC81GOUpAF86BSv3SZR7s WxlPSdi HZQrM7PnuE8yHfFhDGPpCQD kOyc+PHRhYmxlIHdpZHRoPS faOOYaXxQwrNbzNM1qFq0kP GVyLWNv rJvdaUCoSzAam0ohAZRmAWr mLW1gzGlpE0CsqBK4RORcn2 g7Id63W17gH3VvnFS+PGNvb AP3aSK9 rB5fPrAtRqL7ZVgzT786OvU lxEXcGbpyd6gbx1qrrJw5Lb V3XKRiglTxxWqbATZ8x7IuQ b15Y74z IHdpZHRoPSIxNSUiIHZhbGl qmo9plE6yNo4+JBMuzSY2hO H7jU6mPnHcQzR4UZriT105Y nRvcCIv Ybnaq8pgx2mcqWl4DkGtIDY kytGssComSWE4r6JmUy01J5 HlpQlmz9FhLzu4jm01qSPbc 8W1uTR1 J0NeLQFaqftxnBKngLwlGL2 yLEOchnyqVBPrgZ6vEIYqU7 l1TeNpLfF2MPagV8UewwB5S GJvbGQg WPZpjCXHzR9sgcuzm4deaol aXjOzXNNjVLj2KFe7GZQdiY onRbEjJRD2IwA8PEV2gTAqz V8upAug xfxeiD7iAfa+WSS9qCUboEW WMD0pKyhlvMY+WXIwKGS6cG qtIZlePYUxlV3eWYSuA8t5S iAwLjA1 FItbF4ElgkR6MAYmoYSlKMF xhGHIbI8kuhley3kibpkqCe RmTOOeUGq4BIi9LBEimMoeV iBsZWZ0 OwV7AOG6iEQxoL5omRznlvh svO8gXlh+MefwpIkzTJC1IM q8V4MpUtm8CIDjuJykXN5rt GFkZGlu Nk1ufOxgsRktBR9zFHZlsyb dl061ToScj8yiBHPzcKPzYI ydGQJ0F63tc5R0VWYhKGHoE WK3lEM1 cJ7vxLjhkliutDZfuLyfvbX olKscGJduFCqmA035FIWztJ bzHrYqAAc0R6YiZmi7YSQim WrsHK2b uSVjRXoxOb7wxTpiuAhoJY5 gLOVneggex198HbTkb5diSA DmbHLgYVlaVBU4N22ps7K5C CMwMDAw JAO9pOJ3rY8ojYuvlyesnYG mdDsgdmVydGljYWwtYWxpZ2 67VWEtwWjzLlZuaXz5W2MiJ gw4LZOa mEhmZM7fzWOdAJerXh0qaZx peFoeOI0mQFHjknswi648Fk Seu9omPGDcqICaXZuoRDT7O 88kj2G4 SBNjSROaFTL5wZP7mB2acKx nbjogbGVmdDsgdmVydGljYW xrDJcyS204LXEjgOopCuQsr GllbnQg OXduCAd1L8DoFrnjqKI+PC9 8RKOcGL11lXXtgFJfb2ffsR b3ZnXlLNQzJWL1yRfpNLmri 3JkZXIt L69ujXZar9X7DVFqiUrrnPM cRzWiaDW1jT7pFOjxdjgka8 mlhtgaJuhkl6forx63nL52W 29sIHdp ZHRoPSIzMCUiIHZhbGlnbj0 gbO5iJa0+RNFtsHF3sTD5aW 6rQIIrDfF5LCliR143OaMdx CIvPjxj w1zvd8buyQu0YkM3DLAnwyY clZfcZBD3v2QbPn85X39gGD dpZHRoPSIyMCUiIHZhbGlnb h1cmV6l Ii8+GSHtqBW8gSR1zW6bLgJ zZiE7QDglM908KdStqYEkXj mcG98tS0IzzVH+PZXvDta5I CBzdHls ML5blSYhISmdQn3rVXD6PkI zOqMcTLpzQ7SxXXDctlshyu rjzPZ7KONvFOBdeE23Cr6fb DogMTBw hWVOjV1oeyzze5whvlzgQmM mQXYhPMk2GJl7JTHtgDztNl GqDJE2GfM1YDV6aGIeiF2wi Glnbjog oU9nD3WfWEMidqxpZw03vX0 bBwShPhM2ZEwfWje+VkVJVE ksOJDDQJIKYVp9I7CpWud2X CBzdHls QR7mnQGaTAulJx6etWwthNp tFR0nFTHlwesmLRRkkK4tTD QpfXKggGkcBV2aNCSuefime 250OiAx OJF9VZComXBrQ0HenG4jOwJ iNDWoJHRgA6SgdRHyUPjhC1 19CZsjKkY4IUUhfaYmU2BnG WFsaWdu NpR6e1J7Wj0gLy3zNU3dXYn 7ZG21GT15zEAbx2H0fAT9B3 JzRHMwirxnztbrjSH6GMYuS DUwaW47 uVZkIYrbOt9of6H1i226FIM pXLLrdV37To2pdMrwPPBivJ QZoK3psbhiy4tugvmcKbXtD DAwMDt0 NFw3CXZvpSafHrQlALD0CvZ 1RNG8qTRylT7pzOqkecplfG 9wOyc+EKkfTQMwesU9L0HrC zs4XIDi pZydQY9nkILeLWtyFq1zcBr brBgzLM9zRPPrmxhxHEZttC 2hKIQsnUMizSdfOF2hRKIjt dnly207 VgUcRCP0JXHebPQxY8XadE0 bUoAsWUUwRTNoE1JrjWIcBJ yeA181MPheVsC8LMEeeyJtG 2FsLWFs uNasKvP4d6C2Sf9BIB8gwIP 6G6QnNmj6YRQnlNzwFI6gtH GfTLzhMd0kpPfvoLllLC7eS TBpbjtw PBCyxN4xJJTnxOGqzNihMI6 nRFFdfgjwp653GuCrTSO1CF QghPBhJ9BdqQ0vEwQdZWQvG JYhP8Xc yYBbOCpdI658ZJytVgH1TFN omaYcX7FhAYTekEruWqN9t6 W2Xw5LuRDuXZFzZZ95BM00Y A80K5Rz PjwvdGFibGU+PHRhYmxlIHd pZHRoPScxMDAlJyBzdHlsZT 1vTj4aSDBpTUUxoRiqfPMgB xCqn5lq CYEsFHwvZK1enJobM9MxaPF 1BGWcw0c7Dz91E82wX7EiaW A+KOQfkOG7pAY8cP7uYiFdQ rZ7WGoc W155OwKqrTLuIjpzd9mcf5c pyYd5NpOgKDWqzsLacLlcFH M1a5TuHx02P67dFYzaSHRbJ SIyMCUi CJJejWqetr9zqO5iQn9+PGN zkVT1bBS1iN5cRcJlGvX2FD fbQ428RgNkkWMhOpmoW03cV 3JvdXA+ ELUhYps5QDAlxOcxYC3trNO cTNsdWz2nXOK4KfYsEdGbZO gxA1CvYHFscujslseqlPC5V DAuMDUw rP67Rx3mvZdoJw9zNUEyAMR 4ORZzcBJqP9XgbR1pWvGuNJ VhSGUwD5HljEDvCZvfW717E GxlZnQ7 KIHfmoJvB3PmFAXwbTixUuJ 6z9G2Ho0DlEncrZEkKE1eTj LxADy0H7WoKja4IYYziVugZ J3nsTJm OKzvZb7oaSkhdBmlQI8pCXP jillax355LxPks1zzVHFfmO MbZLjeOWT7L50ta0P3OFGjP DAwMDA7 jZP3yJ9jsChnolruqOXopIu xovKjvJoiQXrkEOroC437LA RquHflHlVTQng7P7ZjJdj6L CBzdHls AV5zyVHgLNluZb5wtWipeDj jCQ1mHAAjdijvt536UoClq6 ovTGLwrDBmDAddNDU9K56vh 0Y1ABUu YMQcAIK1jUT7mG5rrTmrlms gbGVmdDsgdmVydGljYWwtYW ddS222FVUsqNutQi8EHfz4S 3GnDua7 HLXxdFqdMI4jsMQpFEijRe5 emYusvXymQZ7cUQHuuathh0 96HzLpz8siGVGeuGZxGLocT AM1B94a y0O1GHNaNPRkSOA7dKQ2pU8 hbGlnbjogbGVmdDsgdmVydG psJCzbRIrqE217BAJrmJunD lBheWVy OjwvdGQ+AL32ub58H1NiOdx tAmm7XILxNVA9zMX8zO8eVL DiBNbbg6P3jWM0F9BiplWug i1mi4no YXBz (more content not included)... Normal [facility] Physician Orderon 08-30-2022 Physician Order [id number]#1.00C D:127 Normal [facility] Coding Summary.on 08-21-2022 Coding Summary. CD:[id number]:[id number] Gh0 bWw+PGhlYWQ+VR4MYAFuJ11 spQFyiF3IO1xBBC8OURZOVR QPZC6TFI0cgPK7BRzwL2Ogt iAv FclwpIHhVN54CVd8SQO2rYx hFUgaqV2nrYCvM5l0HeGeKX 95rV56KHlfNISdCxH1SpNwm jsgbWFy U0heTwTbgUBgTtx+PHRhYmx lIHdpZHRoPScxMDAlJyBzdH iwTJ4dNo6lOHFySBPmuLesb HNlOiBj k1arSAOwQUoyJG8dgGfkM6N pqQG3YJAyz8h1Wr27nSA+PH MkRWI7sWojJWfyb346DjGee 8pkGXZ5 mUPaDLnjKMJ7Y39kz8Y6GOP aUYQkCPP7tXJ7fT5odErsbx nvN7KudTDbLqP9BLW3qPSmc U9moNti yuhguE1lApp+E48JRH3DOLU YDV9MItw1M5ZaTzbdmMI+PC 62IMIwBV24xKLjpTIkz8fni Mk3JtDm POLbKYE6gKgsCGubh7EzMHZ oR30zbFFgm3J1ZNDrzImesM EcViTdbHV4wX2rZNqovimcg 2hvdzsn Iawxz7hpau90lC94A11zUTm eITFbKZD7UYDaWTZolQozfx 4zoR2iLl2+TPwzi9kgx2bxv Mp5CtVb TTFkosWqgYxbKNS9r9RjXx7 7Y6RirVcgb0DiKtf6hh25mP Lpb5N6lFW6RHncDDAzyP1fM WxlZnQ6 AVBvIpSiaW59hXAqKAxuXm0 fbQiztOypLY3hHKUaibaqLO SzhI8dFPTihODqdGewNJ4yB TBpbjtm b534JpDcPUH6IUHnjLFkQ7O hcY9zThKqDWKhTJYjC5XstI PvURzgR837FGgiOlQ2WTExz lKiY9Wd EKCvcBqqAlQ0f3V4Jt0Cm2F ujtakOQW9LKiaRLDyDhA2Id OvMuC7F1BmRoc9GNShlEybU N6yG6Ep MAOxkyrvdchptVH9AWLyQGJ ryB19fYTaQEgpIb0rv9O9o0 44BNJgZHNziL45Wy5ndAruE TBwdCBU sE7czibbz9tlrayiIuPdTYN qJBj6KKa8RPVgpJwaKvYwFF Y8TpE3IRP0dTHjnD8xtYlkv taawX8r Oyc+V17fwL0qFLD1ODC1drs cLNFdvbPjIO96VW24B9ThLx wvdGFibGU+PGRpdiBzdHlsZ Y6iCwVs q2sig5UpNMpnL1OvCWCaSEq zXyb0WHTvWEA3qKW7aG6nYO AmAUtcd9P5rRW8Q3ThylAji b7mm8mw BONdVLfsJ20ahTGdt1V0IIQ thMQ0BPLnpHvwAxEkdV58Ec c+SPRvxAhwi3MaMdrlx8exh 2msdPa2 FzKkZTYfcxHmtZmrFSZ0r2F pLy63J41vDOzhWQMjJXPfBJ MfSLHvuRierk2tsZ2uWs9+P GNvbCB3 nCH6xM2nZPPuTjT5VKkdT81 4YcZvpNCsWbiqw0hft9tvuQ o3AnQsKAHygyNghVpwNCM4m 4GuLx31 I77pFCetUZGtYSJmEKXzGOB soRceaz0xcP1cXn8+PC9jb2 amaa25xK16cRE+VUAwWXR5j WxlPSdw WCGncB8rHUixKvD0EKOqOfX gaW11pMFrSHgjHa0pgWjxlI nkHU5nQGOibgkag464TpVhm 2xkIDEw rNSkFUsxGHN5Q54gy1S7MCE kMQAyMDD4cLP8eD6reOmpds ogbGVmdDsgdmVydGljYWwtY KnqJ149 IHRvcDsnPlBhdGllbnQgTmF hXFc1W6ImBzh5JNCimZilKI 2wjATzKVtnQr0vrTsbrEkxL N9fXBUl oelnt968TfSrc9cnMLHhkAP eZIfjECC5B01lj7S5XFPmZQ GvUFQ5zGY3aQ2hfVjuqfwxo GVmdDsg cbYunLbuGVwuVXlxA435YIF thYvxOfNtvoKdDINnwQI0AB 57OW87pQYzr1E4aRQ1I3LjR GRpbmct poirhYO5CCJbTERzzW99Or1 euVlgMi0vLVAiUDJ6GXPauX YrB2YfhR6aUwKrGAUuWVJaB 3RleHQt YTgfI727MKviFcE6KLCxkjZ iR1NaUGUwmBxgBdD7r6C6Ss 4MX1U7XX96ED47iYKrs1J7m GD0U9Ny RMSwpqihelnatGU9MGCyAID ekQ90Sj9ajAroEj7xSFNhVG K6VFHakAVaJ3HhiS3fGjWmY DAwMDAw N3CfjLStIOraE524ABidDoX 4PCLkulNjD6GbGLXsmVwzGl R1l4J1Xz4MUUp3XD98WH20e FXcr3H1 hJM5B5PnZRSlprcspzshuOS 9MPAgYNTzuT03Ld6ejPxhZf 0yDNZeSWA0KQDaxVVuB4Sif P7qSxPt DPLdXSWrJ5ZyvJCiZHhoS10 1ALyyBoB7GRIxabYnW1RyZR DvsRvfWbA2m3D5Nw9JRTYnL G74BVJ0 xCP3KR19QW16R5DpFnmwtPR ibGU+PHRhYmxlIHdpZHRoPS rjLECjUuShwLypNW4sSq7uX GVyLWNv jRzomLSfKuMiw4kpURQgIRj vVN8gfLqeW2TcpIQ1RLGfp6 o0Sm29L97qF0HpqGJ+PGNvb OK5bJC0 qT6bGgTbSpI8HZykG239YbI ywPSjCopmi6dmk1nptHp6Mp M4SPDypdXfrEatQRF6p8DaQ p22E12a IHdpZHRoPSIxNSUiIHZhbGl zrt3zaH7jTi4+XYLlyCG9lA J3kO8rIuYdIeJ3TDnfV434B nRvcCIv Uyole2qcl4fhsKx6HuUnDQQ rsuFmaLfkFFW6q6XdNz54R6 EluQfks3VhLab2zm57aAYwf 7B2zXF8 L8BjWYQlfcvtmPMrcWhfEQ7 tWRXpcwenOGJnrM8iEBVfM3 r0DjVePpZ2UGybI3XasvJ0V DEwcHQg YYieLJA2W55ku7L0OZZvXST aCWV2vEP9sB1pgVqebalciQ VmdDsgdmVydGljYWwtYWxpZ 246IHRv yNgfIWUlaX3xHYPtoZGiiWa bRR8oDEZeoidaBpGIBLWZJH ZDDywRZZBBOG43ZF98cWJzg 6Z7tHE4 L1TqEBMbuwemvlaovII5MPQ oBEIiwL89xGIxSKnbXz8jb2 M3k134NGTfGOGiuW65Ot1rg DogMTBw xGWRtQ1pqjmna3rwytfpVeI sKRLfYMd0VKm6URImoCauZi SyEGU4YeV7HKI2cCLorB8vc Glnbjog eP9kXnm+YCJnAJubMLk5Inz vdGQ+KQSbVWB0rUmsJZptTH ZkcC7iNEMfP6s1FzVhIlV5C ZjeH0Sz QSKnmetkNi98nW2eKuRfXbF 4KPcsI0EejiR0JJYutCRuDO pyNGG2O78db4L3RAQrKLXqY AC7aHE1 oL7guQzhmlsbmSZurKstkyP mvJinXEjxIIolC364HQVhvP noBxM5PEakYTHlBB15JY66q KCre3C5 mQL8R1TkJECnqytazrptjZL 3ZEMlMEDzfY81gRNwZYvpOr 8bc6Q7w487QKWtPQIgkY36F a2kwIpe JHCbdZDEmB4fnwgly4bgbab cPvOhTLLnAFl7MQe1OXOkdT spKaWkBRU1NtR5OKH1dOQth T4sqXig aatbjP3aGwd+RmVtYWxlPC9 5VF22eCQeq3H0gCW9D6FkCR BtxqsrammuaFF8BFNiHCEkj S67rQJd DCepJd3ho2D6u362JHVkIXI utO37Vh9bvOswMIDeaQGUjX 3bvjaci2gvwzseQuCzSUErL Fz0YJr8 EZQenHzlCpEeKPJ9DrT0AKK 1vKUhnZ0joKgxjjlctY1lDb c+XD6wwHjxsF9bdA3QCP1iN ERheSBT mPOzEHR6WF04KV29F6ZmHpb vdGFibGU+PHRhYmxlIHdpZH CkFBcsPSDzOoCyhLtoKG1qV y5kVQTs CABqtFffqRFgBdOal6iqPJN eFLcdKO8aaZqcP8ZjzAN7GP Afc5q2Br29U30tH9HetNI+P GNvbCB3 vMQ7wK9iOkTsVgL7OQwoG29 0KwLsjZFkAsdyb3bpr5arsD k1CiDlSLUdpcYcuEhaKZQ5d 8ZvVj93 C28tJGuaBTIbNQWlXGInLGJ kkIsglw3hhR3xFr5+PGNvbC U7vNG0zI8eZfXeShK8FVlyP 249InRv pNWlOdxcN90iY2OmbDB+PHR kVnr6MWRvjZoyWM5swEMfSU fgXg3aLIY9MxLmGfJbMYbeR 3BhZGRp rcyztszsxAK7MFQtYPSimI2 2Jk9goZjzRr0zFXFcNTP7EK RczONwT9KfyU4xSvOjDVFzC EGbS1Xg fNCgFUzlU027ZFziQvL5GMG rriIuR8LgSSUjpDluRnP6v4 Z9Np5IhFxbaIHgBR1mTqDdR Iq5H2Qw Oiv3ZKRofLmxST0qzDZdYUh rPt9guFdqoWhhPH3xBMIfge lmf089OsLdc9frAJPtuOLxO GltZXM7 Y40yw7W2PZWrBYHaHBB0sRY 8eE4fnVtsuoreiFGutBbooa UjoFhyDYvmJSotU968LZPtv DsnPkZJ Rdk1N2SiWrh4UIZtpPyuGQ8 zdFFaRFooSi9xbRksgYtbBA 1tPNAgnzsau515PkGnn0ccS DEwcHQg YPtjHHM2C48ns7O3WKJmSVU iKAK0rKV7iQ8jyHdaoenraG VmdDsgdmVydGljYWwtYWxpZ 246IHRv oRbpJk0RWxh9I3LnFox9OWX zyUftSQ9wnFBySHvvWf9noX pdpRjrCZ7cHUUdgelnx237B iZwe6ah CSOxjRTrFHkcMBN2J68ef4R 2ARGcWMVrZRP0jEL4aB5ltI lnbjogbGVmdDsgdmVydGljY WwtYWxp P653DSMvjHhjRyRdnOYjGxx vdGQ+BQ79gg67B5DyWoqwIz l4LYOqXPS4rSG6iL3rVASfH Hass1V7 bGU9 (more content not included)... Normal [facility] Consent for Anesthesiaon Consent for Anesthesia [id number]#1.00 CD:127 [facility] Discharge Instructionson Discharge Instructions [id number]#1.00 CD:127 [facility] IntraOperative Documentson 0 08-21-2022 IntraOperative Documents [id number]#1.00 CD:127 [facility] IntraOperative Documents [id number]#1.00 CD:127 [facility] Main OR Intraoperative Recor don 08-21-2022 Main OR Intraoperative Record IntraOp Document Type FT Summary Primary Physician: Reza Proctor DO Finalized Date/Time: 08/21/22 12:38:52 Pt. Name: POORNIMA BARKER /Sex: 1975 Female Med Rec #: [id number] Physician: Reza Proctor DO Financial #: [id number] Pt. Type: A Room/Bed: [place] [address] Admit/Disch: 08/18/22 06:24:59 - 08/18/22 14:30:00 Institution: [...] 2 Entry 3 Case Attendee Danyel HARVEY, Reza Neely DO, CST, Liane E Role Performed Anesthesiologist of Surgeon - Primary FINANCIAL OPERATIONS CONSULTANT/SA Record Time In 08/18/22 09:53:00 08/18/22 09:53:00 08/18/22 09:53:00 Time Out 08/18/22 11:01:00 08/18/22 11:01:00 08/18/22 11:01:00 Procedure ULNAR NERVE ULNAR NERVE ULNAR NERVE TRANSPOSITION(Left) TRANSPOSITION(Left) TRANSPOSITION(Left) Comments Last Modified By: Tuyet Morel Kelsie E Sayler, Kelsie E 08/18/22 11:05:46 08/18/22 11:05:46 08/18/22 11:05:46 Entry 4 Entry 5 Case Attendee Tuyet Morel Jessica D Role Performed Watershed Coordinator - Primary Scrub - Primary Time In 08/18/22 09:53:00 08/18/22 09:53:00 Time Out 08/18/22 11:01:00 08/18/22 11:01:00 Procedure ULNAR NERVE ULNAR NERVE TRANSPOSITION(Left) TRANSPOSITION(Left) Comments Last Modified By: uTyet Morel Kelsie E 08/18/22 11:05:46 08/18/22 11:05:46 [...] and tissue Entry 1 Skin Integrity Intact, [place], Warm, and Skin Abnormality No D (more content not included)... Normal [facility] Preoperative Documentson Preoperative Documents [id number]#1.00 CD:127 Normal [facility] Consent for Treatmenton 07-27 Consent for Treatment [id number]#1.00C D:127 Normal [facility] H&P Updateon 08-18-2022 H&P Update [id number]#1.00C D:127 Normal [facility] Inpatient Patient Summaryon 08-18-2022 Inpatient Patient Summary [address] [address] [facility] Clinical Discharge Instructions PERSON INFORMATION Name: POORNIMA BARKER [facility]#:[id number] PHYSICIANS Admitting Physician: Reza Proctor DO Attending Physician: Reza Proctor DO PCP: JERAMIE HARVEY, BIRGIT Discharge Diagnosis: Comment: PATIENT EDUCATION INFORMATION Instructions: Ric Proctor - Upper Extremity Fracture Surgery (Custom); Post Op Patient Instructions - FT (Custom) Medication Leaflets: Follow up: MEDICATION LIST New [facility] [address], [place] [id number], [phone] acetaminophen-hydrocodo ne ([place] 325 mg-5 mg oral tablet) 1-2 tab(s) Oral q4hr; as needed for pain. Refills: 0. docusate (Colace 100 mg Cap) 1 Capsules By Mouth 2 times a day as needed for constipation. Refills: 0. Medications to Continue Taking That Have Changed [facility] [address], [place] [id number], [phone] START: ibuprofen (ibuprofen 600 mg Tab) 1 Tablets By Mouth every 8 hours as needed as needed for pain. with food or milk. Refills: 0. Medications to Continue with No Changes Other Medications cranberry (cranberry oral capsule) esomeprazole (Nexium 40 mg Cap-EC) 1 Capsules By Mouth every day. Comment: Normal [facility] Main OR PACU I Recordon 07-27 Main OR PACU I Record PACU Phase I Docum ent Type FT Summary Primary Physician: Reza Proctor DO Finalized Date/Time: 08/18/22 13:17:16 Pt. Name: POORNIMA BARKER/Sex: 1975 Female Med Rec #: [id number] Physician: Reza Proctor DO Financial #: [id number] Pt. Type: A Room/Bed: [place] [address] Admit/Disch: 08/18/22 06:24:59 - Institution: Case Times [...] By: Luz Frederick RN 08/18/22 13:17 Normal [facility] Main OR PACU II Recordon Main OR PACU II Record PACU Phase II Doc ument Type FT Summary Primary Physician: Reza Proctor DO Finalized Date/Time: 08/18/22 14:50:45 Pt. Name: POORNIMA BARKER/Sex: 1975 Female Med Rec #: [id number] Physician: Reza Proctor DO Financial #: [id number] Pt. Type: A Room/Bed: [facility]/ Admit/Disch: 08/18/22 06:24:59 - Institution: Case Times [...] Signed By: Dylan Mcneil 08/18/22 14:50 Normal [facility] Main OR Preoperative Recordo n 08-18-2022 Main OR Preoperative Record PreOp Document Type FT Summary Primary Physician: Reza Proctor DO Finalized Date/Time: 08/18/22 10:25:18 Pt. Name: POORNIMA BARKER Javon/Sex: 1975 Female Med Rec #: [id number] Physician: Reza Proctor DO Financial #: [id number] Pt. Type: A Room/Bed: [place] [address] Admit/Disch: 08/18/22 06:24:59 - Institution: Case Times PreOp FT Pre-Care Text: Verifies consent for planned procedure, identifies individual values and wishes concerning care, includes family members in perioperative teaching Entry 1 Patient Times. In Pre Surgery 08/18/22 06:35:00 Out Pre Surgery 08/18/22 09:51:00 Outcomes Met? Yes Last Modified By: Tuyte Morel 08/18/22 10:25:16 Post-Care Text: The patient participates in decisions affecting his or her perioperative plan of care Finalized By: Tuyet Morel Document Signatures Signed By: Tuyet Morel 08/18/22 10:25 Normal [facility] Monitor Recordon 08-18-2022 Monitor Record [id number]#1.00 CD:127 Normal [facility] Monitor Record [id number]#1.00 CD:127 Normal [facility] Operative Reporton Operative Report Patient: CHANDA BARKER Age: 47 years Sex: Female : 1975 Associated Diagnoses: None Author: Reza Proctor DO DATE OF SURGERY: 08/18/2022 SURGEON: Reza Proctor D.O. VP MARKETING: Erin Palacios CFA PREOPERATIVE DIAGNOSIS: Chronic extensor tendinosis, left elbow POSTOPERATIVE DIAGNOSIS: Chronic extensor tendinosis, left elbow PROCEDURE: 1. Open common extensor tendon debridement, left elbow 2. Application of short arm volar fiberglass splint ANESTHESIA: General with regional block ANESTHESIOLOGIST: David Montaño MD IMPLANTS: Arthrex 3.0 mm knotless suture tack anchor OPERATIVE INDICATIONS: Poornima is a 47-year-old ejgkd-ufjl-fhpqaazo female who has had persistent pain over [...] in the common extensor in a running [id number]-qr-[id number]. The distal aspect of the suture was [...] was clean and elective. Reza Proctor D.O. [facility] Comment on above: Result Comment: Elec tronically Signed By: Reza Proctor DO\.br\Date and Time Signed: 08/18/22 15:01 EST Operative Report Patient: CHANDA BARKER Age: 47 years Sex: Female : [...] Using maximal sterile barrier technique per current CMS guidelines including hand hygeine, Guidance (Ultrasound used [...] patient tolerated the procedure as expected. Normal [facility] Comment on above: Result Comment: Elec tronically Signed By: Danyel HARVEY, David Allen.br\Date and Time Signed: 08/18/22 08:24 EST Outpatient Surgery Discharge Instructionon 08-18-2022 Outpatient Surgery Discharge Instruction [place] [id number] Patient Discharge Instructions PERSON INFORMATION Name: POORNIMA BARKER Date of : 1975 Current Date: 08/18/2022 11:57:26 PHYSICIANS Admitting Physician: Reza Proctor DO Discharge Diagnosis: POORNIMA BARKER has been given the following list of follow-up instructions, prescriptions, and patient education materials: IF UNABLE TO CONTACT YOUR PHYSICIAN AND YOU FEEL IT IS AN EMERGENCY, GO TO THE NEAREST EMERGENCY ROOM OR CALL 911 I, POORNIMA BARKER, have received the attached patient [...] to serve you. Thank you for choosing [facility] HERE ARE THE MEDICATION CHANGES THAT OCCURRED DURING YOUR HOSPITAL STAY New Medications Medicine [facility] [address], [place] [id number], [phone] acetaminophen-hydrocodo ne ([place] 325 mg-5 mg oral tablet) 1-2 tab(s) Oral q4hr; as needed for pain. Refills: 0. docusate (Colace 100 mg Cap) 1 Capsules By Mouth 2 times a day as needed for constipation. Refills: 0. Medications to Continue Taking That Have Changed Medicine [place] [address], [address] [place] [id number], [phone] START: ibuprofen (ibuprofen 600 mg Tab) 1 Tablets By Mouth every 8 hours as needed as needed for pain. with food or milk. Refills: 0. Medications to Continue with No Changes Other Medications cranberry (cranberry oral capsule) esomeprazole (Nexium 40 mg Cap-EC) 1 Capsules By Mouth every day. PATIENT EDUCATION INFORMATION Instructions: [place], [place] [facility] UPPER EXTREMITY SURGERY Home [...] too soon, you are considered an impaired utility driver, and this could be a problem. It is therefore advised not to drive until after your first office visit following surgery. Do not drive while taking pain medication. ____ Reza Proctor, DO [facility] [address] [place] [id number] Reviewed: (Inserted I (more content not included)... Normal [facility] Patient Education - Texton 0 08-18-2022 Patient Education - Text [place] [place] [facility] UPPER EXTREMITY SURGERY Home [...] too soon, you are considered an impaired utility driver, and this could be a problem. It is therefore advised not to drive until after your first office visit following surgery. Do not drive while taking pain medication. ____ Reza Proctor, DO [facility] [address] [place] [address] Reviewed: [facility] Progress Note-Physicianon Progress Note-Physician Patient: POORNIMA BARKER Age: 47 years Sex: Female : 1975 Associated Diagnoses: None Author: David Montaño MD Postoperative Information Postoperative disposition: Postoperative disposition: To PACU. Optimetrix number: Optimetrix number [id number]. Anesthetic utilized: General. Regional: adductor canal block. Health Status Problem list: All Problems Acid reflux / SNOMED CT 911721047 / Confirmed Endometriosis / SNOMED CT 038971127 / Confirmed History of seizures / SNOMED CT 7513764717 / Confirmed Migraines / SNOMED CT 25118103 / Confirmed Pseudotumor cerebri / SNOMED CT 905465615 / Confirmed Smoker / SNOMED CT 933497661 / Confirmed Added secondary to documentation in [...] Surgery Unit, and To home ). Normal [facility] Comment on above: Result Comment: Elec [...] All Problems Acid reflux / SNOMED CT 922556715 / Confirmed Endometriosis / SNOMED CT 540331151 / Confirmed History of seizures / SNOMED CT 1156864478 / Confirmed Migraines / SNOMED CT 03156110 / Confirmed Pseudotumor cerebri / SNOMED CT 087489622 / Confirmed Smoker / SNOMED CT 895909687 / Confirmed Added secondary to documentation in Social History., Active Problems (6) Acid reflux Endometriosis History of seizures Migraines Pseudotumor cerebri Smoker Histories Past Medical History: No active or resolved past medical history items have been selected or recorded. Family History: No family history items have been selected or recorded. Procedure history: Cholecystectomy (04169590). History of total hysterectomy (7470967653). Excision of cyst on neck (9322057779). Excision of cyst bilat ovaries (6493680692). Colonoscopy (405832607). Procedure on brain ventricular shunt (1572120266). Social History Social & Psychosocial Habits Alcohol [...] EST Height (more content not included)... Normal [facility] Comment on above: Result Comment: Elec tronically Signed By: Danyel HARVEY, David Allen.br\Date and Time Signed: 08/18/22 06:50 EST Consent for Procedure/Surger yon 08-17-2022 Consent for Procedure/Surgery [id number] D:127 Normal [facility] Physician Orderon 08-16-2022 Physician Order [id number] 0CD:127 Normal [facility] BUNon 08-08-2022 Urea nitrogen [Mass/Vol] 10 mg/dL Normal 5-21 [facility] Comment on above: Performed By: #### 2 776784, 4855624, 70423808, 2942471, 0809852, 2869099 ####[facility] [address] [place] [address] CBC w/Indiceson 08-08-2022 Erythrocyte distribution width (RBC) [Ratio] 14.8 % High 10.9-14.2 [facility] Comment on above: Performed By: #### 2 377336, 8680544, 58300799, 1582304, 6744643, 5726679 ####[facility] [address] [place] [address] Hematocrit (Bld) [Volume fraction] 38.8 % Normal 34.0-46.0 [facility] Comment on above: Performed By: #### 2 726048, 0610253, 52093421, 4745353, 7006908, 1837682 ####[facility] [address] [place] [address] Hemoglobin (Bld) [Mass/Vol] 12.9 g/dL Normal 12.0-16.0 [facility] Comment on above: Performed By: #### 2 101482, 6359195, 47146987, 0519526, 7273312, 3371513 ####[address] [address] MCH (RBC) [Entitic mass] 29.3 pg Normal 27.0-34.0 [facility] Comment on above: Performed By: #### 2 870640, 6037538, 49426371, 1694203, 8809228, 6673268 ####[address] [address] MCHC (RBC) [Mass/Vol] 33.4 g/dL Normal 31.4-36.0 [facility] Comment on above: Performed By: #### 2 499573, 1288119, 18131862, 6320937, 6468996, 1245065 ####[address] [address] MCV (RBC) [Entitic vol] 87.7 fL Normal 80.0-100.0 [facility] Comment on above: Performed By: #### 2 931304, 1168213, 83146140, 4111007, 8951229, 8915529 ####[address] [address] Platelet mean volume (Bld) [Entitic vol] 8.3 fL Normal 6.4-10.8 [facility] Comment on above: Performed By: #### 2 732054, 4601596, 35141782, 7631228, 9394430, 7254924 ####[address] [place] [address] Platelets (Bld) [#/Vol] 278.0 E9/L Normal 150.0-500.0 [facility] Comment on above: Performed By: #### 2 960700, 4153595, 42837404, 3933910, 9996307, 3402783 ####[facility] [address] [place] [address] RBC (Bld) [#/Vol] 4.4 E12/L Normal 4.3-5.9 [facility] Comment on above: Performed By: #### 2 465366, 9772585, 85970647, 9935646, 9869231, 3494426 ####[facility] [address] [place] [address] WBC corrected for nucl RBC Auto (Bld) [#/Vol] 10.7 E9/L Normal 4.0-11.0 [facility] Comment on above: Performed By: #### 2 074134, 7409550, 50001903, 3586303, 1055638, 9853779 ####[facility] [address] [place] [address] CHEMISTRYOrdered By: SYSTEM SYSTEM on 08-08-2022 Anion gap [Moles/Vol] 12 mmol/L Normal 6 - 16 mEq/L F C Remisol Chloride [Moles/Vol] 108 mmol/L Normal 101 - 1 11 mmol/L [facility] [place]isol CO2 [Moles/Vol] 26 mmol/L Normal 21 - 31 mmol/L FT [facility] Creatinine [Mass/Vol] 0.9 mg/dL Normal 0.5 - 1.3 mg/dL FT Remisol GFR/1.73 sq M.predicted among blacks MDRD (S/P/Bld) [Vol rate/Area] mL/min/1.73 m2 Normal >=59mL/min/1 .73 m2 [facility] Chem S GFR/1.73 sq M.predicted among non-blacks MDRD (S/P/Bld) [Vol rate/Area] mL/min/1.73 m2 Normal >=59mL/min/1 .73 m2 [facility] Chem S Glucose [Mass/Vol] 96 mg/dL Normal 55 - 199 mg/dL [facility] Remisol Potassium [Moles/Vol] 3.6 mmol/L Normal 3.5 - 5.3 mmol/L [facility] Remisol Sodium [Moles/Vol] 142 mmol/L Normal 135 - 145 mmol/L [facility] Remisol Urea nitrogen [Mass/Vol] 10 mg/dL Normal 5 - 21 mg/dL [facility] Remisol Consent for Treatmenton 07-26 Consent for Treatment [id number] D:127 Normal [facility] Creatinineon 08-08-2022 Creatinine [Mass/Vol] 0.9 mg/dL Normal 0.5-1.3 [facility] Comment on above: Performed By: #### 2 411050, 4047880, 68097842, 6685837, 4387234, 5633553 ####[facility] [address] [place] [address] Glucoseon 08-08-2022 Glucose [Mass/Vol] 96 mg/dL Normal 55-199 [facility] Comment on above: Performed By: #### 2 915881, 7246930, 80367456, 0100461, 5811771, 3200115 ####[facility] [address] [place] [address] HEMATOLOGYOrdered By: Carlos Humphrey on 08-08-2022 Erythrocyte distribution width (RBC) [Ratio] 14.8 % High 10.9 - 14.2 % [facility] Hematocrit (Bld) [Volume fraction] 38.8 % Normal 34.0 - 46.0 % [facility] Hemoglobin (Bld) [Mass/Vol] 12.9 g/dL Normal 12.0 - 16.0 gm/dL [facility] MCH (RBC) [Entitic mass] 29.3 pg Normal 27.0 - 34.0 pg FT [employer] MCHC (RBC) [Mass/Vol] 33.4 g/dL Normal 31.4 - 36.0 gm/dL [facility] MCV (RBC) [Entitic vol] 87.7 fL Normal 80.0 - 100.0 fL [facility] Platelet mean volume (Bld) [Entitic vol] 8.3 fL Normal 6.4 - 10.8 fL [facility] Platelets (Bld) [#/Vol] 278.0 E9/L Normal 150.0 - 500.0 E9/L [facility] RBC (Bld) [#/Vol] 4.4 E12/L Normal 4.3 - 5.9 E12/L [facility] WBC corrected for nucl RBC Auto (Bld) [#/Vol] 10.7 E9/L Normal 4.0 - 11.0 E9/L [facility] Lyteson 08-08-2022 Anion gap [Moles/Vol] 12 mmol/L Normal 6-16 [facility] Comment on above: Performed By: #### 2 064543, 4792111, 06708283, 6941180, 0375779, 3331893 ####[facility] [address] [place] [address] Chloride [Moles/Vol] 108 mmol/L Normal 101-111 [facility] Comment on above: Performed By: #### 2 121452, 7923327, 73955460, 2263583, 2209833, 7805578 ####[facility] [address] [place] [address] CO2 [Moles/Vol] 26 mmol/L Normal 21-31 [facility] Comment on above: Performed By: #### 2 246920, 6691100, 03081901, 6074643, 6437928, 7586970 ####[facility] [address] [place] [address] Potassium [Moles/Vol] 3.6 mmol/L Normal 3.5-5.3 [facility] Comment on above: Performed By: #### 2 916829, 9585690, 80242990, 7910595, 1443761, 5990799 ####[facility] [address] [address] Sodium [Moles/Vol] 142 mmol/L Normal 135-145 [facility] Comment on above: Performed By: #### 2 381387, 3728796, 20717819, 8817758, 4455233, 9973192 ####[facility] [address] [place] [address] XR Chest 2 Viewson 3 XR Chest [...] Buenrostro MD, V. Transcribed by: CANDELARIA Technologist: ALEYDA Normal [facility] eGFRon 08-08-2022 GFR/1.73 sq M.predicted among blacks MDRD (S/P/Bld) [Vol rate/Area] mL/min/{1.73_m2} Normal >=59 [facility] Comment on above: Order Comment: Order added by Discern Expert. Result Comment: eGFR is race adjusted. AA=. Performed By: #### 2 770352, 9456840, 86089160, 4597866, 9028079, 0011662 ####[facility] [address] [place] [address] GFR/1.73 sq M.predicted among non-blacks MDRD (S/P/Bld) [Vol rate/Area] mL/min/{1.73_m2} Normal >=59 [facility] Comment on above: Order Comment: Order added by Discern Expert. Result Comment: Insurance Agency Manager reginaldo kidney disease could be indicated at eGFR's of less than 60 mL/min/1.73m2. Kidney failure is indicated at less than 15 mL/min/1.73m2. Performed By: #### 2 454344, 6006629, 82374034, 7000165, 1531752, 0446544 ####[facility] [address] [place] [address] CT HEAD WO CONon 10-31-2021 CT HEAD [...] ROSANNE PERKINS Date: 2021-10-31 14:25 Normal [facility] XR CHEST 1 Von 10-21-2021 [...] by: ЕЛЕНА ROBERT Date: 2021-10-21 15:50 Normal [facility] XR KUB 1 VIEWon 10-21-2021 XR KUB 1 VIEW EXAM: XR KUB 1 VIEW, XR SKULL LESS THAN 4 VIEWS Clinical Indication: Benign intracranial hypertension Comparison: None FINDINGS: Images of the skull shows a right-sided DIAL BUFFER shunt tube, coursing along the right side of the neck and chest into the right side of the abdomen The supine and upright views of the abdomen shows a non-obstructive bowel gas pattern. There is no abnormal dilatation of bowel loops. No significant air fluid levels. There is no pneumoperitoneum. Right-sided DIAL BUFFER shunt is seen, with the tip in the area of the bladder. Cholecystectomy changes are seen. There are no clinically significant osseous abnormalities noted. IMPRESSION: Unremarkable abdominal series The shunt tube begins in the right cerebral hemisphere, and terminates in the pelvis. No obvious discontinuity or kink SL: [id number] Electronically authenticated by: ЕЛЕНА ROBERT Date: 2021-10-21 16:49 Normal [facility] Vital Signs Date Time Vital Sign Value Performing Clinician Facility 11-21-2024 10:57-0400 Body height 154.94 cm Birgit Bobo MD Work Phone: [facility] 11-21-2024 10:57-0400 Body mass index (BMI) [Ratio] 36.1 kg/m2 Birgti Bobo MD Work Phone: [facility] 11-21-2024 10:57-0400 Body weight 86.86 kg Birgit Bobo MD Work Phone: [facility] 11-21-2024 10:57-0400 Diastolic blood pressure 68 mm[Hg] Birgit Bobo MD Work Phone: [facility] 11-21-2024 10:57-0400 Heart rate 76 /min Birgit Bobo MD Work Phone: [facility] 11-21-2024 10:57-0400 Respiratory rate 12 /min Birgit Bobo MD Work Phone: [facility] 11-21-2024 10:57-0400 SaO2% (BldA) [Mass fraction] 96 % Birgit Bobo MD Work Phone: [facility] 11-21-2024 10:57-0400 Systolic blood pressure 105 mm[Hg] Birgit Bobo MD Work Phone: [facility] 10-14-2024 09:50-0400 Body height 154.94 cm Birgit Bobo MD Work Phone: [facility] 10-14-2024 09:50-0400 Body mass index (BMI) [Ratio] 35.6 kg/m2 Birgit Bobo MD Work Phone: [facility] 10-14-2024 09:50-0400 Body temperature 98.7 [degF] Birgit Bobo MD Work Phone: [facility] 10-14-2024 09:50-0400 Body weight 85.72 kg Birgit Bobo MD Work Phone: [facility] 10-14-2024 09:50-0400 Diastolic blood pressure 64 mm[Hg] Birgit Bobo MD Work Phone: [facility] 10-14-2024 09:50-0400 Heart rate 102 /min Birgit Bobo MD Work Phone: [facility] 10-14-2024 09:50-0400 SaO2% (BldA) [Mass fraction] 95 % Birgit Bobo MD Work Phone: [facility] 10-14-2024 09:50-0400 Systolic blood pressure 95 mm[Hg] Birgit Bobo MD Work Phone: [facility] 10-01-2024 14:27-0400 Body height 154.94 cm [facility] 10-01-2024 14:27-0400 Body mass index (BMI) [Ratio] 34.5 kg/m2 [facility] 10-01-2024 14:27-0400 Body weight 83 kg [facility] 10-01-2024 14:27-0400 Diastolic blood pressure 70 mm[Hg] [facility] 10-01-2024 14:27-0400 Heart rate 71 /min [facility] 10-01-2024 14:27-0400 Systolic blood pressure 124 mm[Hg] [facility] 07-04-2024 09:25-0500 Body height 154.94 cm [facility] 07-04-2024 09:25-0500 Body mass index (BMI) [Ratio] 34.5 kg/m2 [facility] 07-04-2024 09:25-0500 Body weight 83.03 kg [facility] 07-04-2024 09:25-0500 Diastolic blood pressure 62 mm[Hg] [facility] 07-04-2024 09:25-0500 Heart rate 78 /min [facility] 07-04-2024 09:25-0500 Systolic blood pressure 102 mm[Hg] [facility] 03-28-2024 09:08-0400 Body height 154.94 cm MD Birgit Bobo Work Phone: [facility] 03-28-2024 09:08-0400 Body mass index (BMI) [Ratio] 34 kg/m2 MD Birgit Bobo Work Phone: [facility] 03-28-2024 09:08-0400 Body weight 81.64 kg MD Birgit Bobo Work Phone: [facility] 01-07-2024 13:41-0400 Diastolic blood pressure 53 mm[Hg] MD Birgit Bobo Work Phone: [facility] 01-07-2024 13:41-0400 Heart rate 64 /min MD Birgit Bobo Work Phone: [facility] 01-07-2024 13:41-0400 Respiratory rate 16 /min MD Birgit Bobo Work Phone: [facility] 01-07-2024 13:41-0400 SaO2% (BldA) [Mass fraction] 100 % MD Birgit Bobo Work Phone: [facility] 01-07-2024 13:41-0400 Systolic blood pressure 94 mm[Hg] MD Birgit Bobo Work Phone: [facility] 01-07-2024 11:34-0400 Body height 154.94 cm MD Birgit Bobo Work Phone: [facility] 01-07-2024 11:34-0400 Body weight 82.1 kg MD Birgit Bobo Work Phone: [facility] 12-13-2023 13:10-0400 Body height 152.4 cm MD Birgit Bobo Work Phone: [facility] 12-13-2023 13:10-0400 Body mass index (BMI) [Ratio] 36.3 kg/m2 MD Birgit Bobo Work Phone: [facility] 12-13-2023 13:10-0400 Body weight 84.36 kg MD Birgit Bobo Work Phone: [facility] 10-19-2023 11:28-0400 Diastolic blood pressure 60 mm[Hg] MD Birgit Bobo Work Phone: [facility] 10-19-2023 11:28-0400 Heart rate 55 /min MD Birgit Bobo Work Phone: [facility] 10-19-2023 11:28-0400 Respiratory rate 16 /min MD Birgit Bobo Work Phone: [facility] 10-19-2023 11:28-0400 SaO2% (BldA) [Mass fraction] 96 % MD Birgit Bobo Work Phone: [facility] 10-19-2023 11:28-0400 Systolic blood pressure 96 mm[Hg] MD Birgit Bobo Work Phone: [facility] 10-19-2023 09:21-0400 Body height 152.4 cm MD Birgit Bobo Work Phone: [facility] 10-19-2023 09:21-0400 Body weight 84.36 kg MD Birgit Bobo Work Phone: [facility] 10-03-2023 10:40-0400 Body height 158.75 cm [facility] 10-03-2023 10:40-0400 Body mass index (BMI) [Ratio] 34 kg/m2 [facility] 10-03-2023 10:40-0400 Body weight 85.72 kg [facility] 09-07-2023 11:27-0400 Body height 158.75 cm [facility] 09-07-2023 11:27-0400 Body mass index (BMI) [Ratio] 34 kg/m2 [facility] 09-07-2023 11:27-0400 Body weight 85.84 kg [facility] 09-07-2023 11:27-0400 Diastolic blood pressure 70 mm[Hg] [facility] 09-07-2023 11:27-0400 Heart rate 78 /min [facility] 09-07-2023 11:27-0400 Systolic blood pressure 106 mm[Hg] [facility] 06-29-2023 09:45-0500 Body height 158.75 cm Birgit Bobo Other [facility] 06-29-2023 09:45-0500 Body mass index (BMI) [Ratio] 34.19 kg/m2 Birgit Bobo Other [employer] [facility] [email or web address] Other 06-29-2023 09:45-0500 Body weight 86.18 kg Birgit Bobo Other [facility] 06-29-2023 09:45-0500 Diastolic blood pressure 70 mm[Hg] Birgit Bobo Other [facility] 06-29-2023 09:45-0500 Systolic blood pressure 101 mm[Hg] Birgit Bobo Other [facility] 08-18-2022 14:08-0500 Heart rate 65 /min [facility] 08-18-2022 14:08-0500 SaO2% (BldA) [Mass fraction] 95 % [facility] 08-18-2022 14:08-0500 Diastolic blood pressure 73 mm[Hg] [facility] 08-18-2022 14:08-0500 Mean blood pressure 85 mm[Hg] [facility] 08-18-2022 14:08-0500 Systolic blood pressure 110 mm[Hg] [facility] 08-18-2022 14:08-0500 Respiratory rate 18 /min [facility] 08-18-2022 13:04-0500 Heart rate 71 /min [facility] 08-18-2022 13:04-0500 SaO2% (BldA) [Mass fraction] 92 % [facility] 08-18-2022 12:10-0500 SaO2% (BldA) [Mass fraction] 94 % [facility] 08-18-2022 12:06-0500 Heart rate 75 /min [facility] 08-18-2022 12:05-0500 Respiratory rate 18 /min [facility] 08-18-2022 12:04-0500 Diastolic blood pressure 70 mm[Hg] [facility] 08-18-2022 12:04-0500 Mean blood pressure 80 mm[Hg] [facility] 08-18-2022 12:04-0500 Systolic blood pressure 101 mm[Hg] [facility] 08-18-2022 12:04-0500 Body temperature 97.52 [degF] [facility] 08-18-2022 11:55-0500 Body temperature 97.7 [degF] [facility] 08-18-2022 11:55-0500 Diastolic blood pressure 66 mm[Hg] [facility] 08-18-2022 11:55-0500 Mean blood pressure 74 mm[Hg] [facility] 08-18-2022 11:55-0500 Respiratory rate 12 /min [facility] 08-18-2022 11:55-0500 Systolic blood pressure 90 mm[Hg] [facility] 08-18-2022 11:45-0500 Mean blood pressure 79 mm[Hg] [facility] 08-18-2022 11:45-0500 Respiratory rate 16 /min [facility] 08-18-2022 11:30-0500 Mean blood pressure 83 mm[Hg] [facility] 08-18-2022 11:30-0500 Respiratory rate 12 /min [facility] 08-18-2022 11:02-0500 Body temperature 97.16 [degF] [facility] 08-18-2022 10:55-0500 Respiratory rate 10 /min [facility] 08-18-2022 06:40-0500 Mean blood pressure 83 mm[Hg] [facility] 08-18-2022 06:40-0500 Blood Pressure Location Re[facility] 08-18-2022 06:40-0500 Heart rate 88 /min [facility] 08-18-2022 06:39-0500 Body temperature 98.06 [degF] [facility] 08-18-2022 06:38-0500 Blood Pressure Location Reaz [facility] 08-16-2022 09:15-0500 Body height 158.75 cm Birgit Bobo Other [employer] Other 08-16-2022 09:15-0500 Body mass index (BMI) [Ratio] 35.45 kg/m2 Birgit Bobo Other [employer] Other 08-16-2022 09:15-0500 Body weight 89.36 kg Birgit Bobo Other [employer] Other 08-16-2022 09:15-0500 Diastolic blood pressure 68 mm[Hg] Birgit Bobo Other [employer] Other 08-16-2022 09:15-0500 SaO2% (BldA) [Mass fraction] 97 % Birgit Jeramie Other [employer] Other 08-16-2022 09:15-0500 Systolic blood pressure 108 mm[Hg] Birgit Jeramie Other [employer] Other 08-08-2022 15:39-0500 Diastolic blood pressure 77 mm[Hg] [employer] [facility] 08-08-2022 15:39-0500 Heart rate 71 /min [employer] [facility] 08-08-2022 15:39-0500 Mean blood pressure 90 mm[Hg] [employer] [facility] 08-08-2022 15:39-0500 Systolic blood pressure 117 mm[Hg] [facility] 08-08-2022 15:39-0500 Heart rate 77 /min [employer] [facility] 08-08-2022 15:39-0500 SaO2% (BldA) [Mass fraction] 100 % [facility] 08-08-2022 15:38-0500 Diastolic blood pressure 81 mm[Hg] [facility] 08-08-2022 15:38-0500 Mean blood pressure 98 mm[Hg] [facility] 08-08-2022 15:38-0500 Systolic blood pressure 133 mm[Hg] [facility] 08-08-2022 15:38-0500 Respiratory rate 16 /min [facility] 11-15-2021 11:00-0400 Body height 158.75 cm Seb Bobo Other [employer] [email or web address] Other 11-15-2021 11:00-0400 Body mass index (BMI) [Ratio] 33.83 kg/m2 Seb Bobo Other [employer] Other 11-15-2021 11:00-0400 Body weight 85.28 kg Seb Bobo Other [employer] [facility] [email or web address] Other Encounters Encounter Date Encounter Type Care Provider Facility Start: 11-21-2024 End: 11-21-2024 ambulatory Birgit Bobo MD Work Phone: [facility] Work Phone: Start: 11-21-2024 End: 11-21-2024 Patient encounter procedure Birgit Bobo MD Work Phone: [facility] Phys[facility] Work Phone: Start: 11-07-2024 End: 11-07-2024 Patient encounter procedure Birgit Bobo MD Work Phone: [facility] [place] Work Phone: Start: 11-07-2024 End: 11-07-2024 ambulatory Imelda Jiang Facility:[facility] Start: 10-14-2024 Non-patient / Non-visit Birgit Bobo MD Work Phone: [facility] Phys[facility] Work Phone: Start: 10-14-2024 End: 10-14-2024 ambulatory Birgit Bobo MD Work Phone: [facility] Work Phone: Start: 10-14-2024 End: 10-14-2024 Patient encounter procedure Birgit Bobo MD Work Phone: [facility] Physician [facility] Work Phone: Start: 10-03-2024 End: 10-03-2024 Patient encounter procedure Birgit Bobo MD Work Phone: [facility] [place] Work Phone: Start: 10-03-2024 End: 10-03-2024 ambulatory Birgit Bobo MD Work Phone: [facility] Work Phone: Start: 10-01-2024 End: 10-01-2024 ambulatory [facility] Work Phone: Start: 10-01-2024 End: 10-01-2024 Patient encounter procedure [facility] Work Phone: Start: 07-26-2024 Non-patient / Non-visit [facility] Work Phone: Start: 07-25-2024 End: 07-25-2024 ambulatory [facility] Start: 07-04-2024 End: 07-04-2024 Patient encounter procedure [facility] Work Phone: Start: 05-24-2024 ambulatory [facility] Start: 03-28-2024 End: 03-28-2024 ambulatory MD Birgit Bobo Work Phone: [facility] Work Phone: Start: 03-28-2024 End: 03-28-2024 Patient encounter procedure MD Birgit Bobo Work Phone: [facility] [place] Work Phone: Start: 03-12-2024 End: 03-12-2024 Nursing evaluation of patient and report Breath Test [facility] Work Phone: [facility] Comment on above: Diarrhea, unspecifie d type (Primary Dx) Start: 01-07-2024 Non-patient / Non-visit MD Lillian Bobo Work Phone: [facility] Work Phone: Start: 01-07-2024 End: 01-07-2024 Admission to same day surgery center MD Birgit Bobo Work Phone: [facility] Work Phone: Start: 01-07-2024 End: 01-07-2024 ambulatory MD Birgit Bobo Work Phone: [facility] [facility] Work Phone: Start: 12-13-2023 End: 12-13-2023 Patient encounter procedure MD Birgit Bobo Work Phone: [facility] Physician [facility] Gastro[facility]ology Work Phone: Start: 11-07-2023 Non-patient / Non-visit MD Lillian Bobo Work Phone: [facility] Work Phone: Start: 11-02-2023 End: 11-02-2023 ambulatory MD Birgit Bobo Work Phone: [facility] Work Phone: Start: 11-02-2023 End: 11-02-2023 Patient encounter procedure MD Birgit Bobo Work Phone: [facility]-CT Scan [facility] [place] Work Phone: Start: 10-24-2023 Non-patient / Non-visit MD Lillian Bobo Work Phone: [facility] Physician [facility] Work Phone: Start: 10-22-2023 Non-patient / Non-visit MD Lillian Bobo Work Phone: [facility] Physician [facility] Work Phone: Start: 10-19-2023 Non-patient / Non-visit MD Lillian Bobo Work Phone: [facility] Physician [facility] Gastroenterology Work Phone: Start: 10-19-2023 End: 10-19-2023 Admission to same day surgery center MD Birgit Bobo Work Phone: [facility] Work Phone: Start: 10-19-2023 End: 10-19-2023 ambulatory MD Birgit Bobo Work Phone: [facility] Work Phone: Start: 10-03-2023 End: 10-03-2023 ambulatory [facility] Work Phone: Start: 10-03-2023 End: 10-03-2023 Patient encounter procedure [facility] Physician [facility] Gastroenterology Work Phone: Start: 09-07-2023 End: 09-07-2023 ambulatory [facility] Work Phone: Start: 09-07-2023 End: 09-07-2023 Patient encounter procedure [facility] Physician [facility] Work Phone: Start: 08-14-2023 Non-patient / Non-visit [facility] Physician [facility] Work Phone: Start: 07-17-2023 End: 07-17-2023 ambulatory Birgit Bobo Other [facility] Other Start: 07-17-2023 Telephone encounter Birgit Bobo [facility] Start: 06-29-2023 End: 06-29-2023 ambulatory Birgit Bobo Other [facility] Other Start: 06-29-2023 Office outpatient vi sit 15 minutes Birgit Bobo [facility] Start: 06-29-2023 End: 06-29-2023 Patient encounter procedure [facility] Work Phone: Start: 10-11-2022 End: 02-26-2023 ambulatory Reza Proctor [facility] Start: 10-11-2022 End: 02-25-2023 Recurring Reza Proctor [facility] Start: 08-23-2022 End: 08-23-2022 ambulatory Birgit Bobo Other [facility] Other Start: 08-23-2022 Telephone encounter Birgit Bobo [facility] Start: 08-21-2022 End: 08-21-2022 ambulatory Birgit Bobo Other [facility] Other Start: 08-21-2022 Telephone encounter Birgit Bobo [facility] Start: 08-18-2022 End: 08-18-2022 ambulatory Reza Proctor [facility] Start: 08-18-2022 End: 08-18-2022 Admission to same day surgery center Reza Proctor [facility] Start: 08-16-2022 End: 08-16-2022 ambulatory Birgit Bobo Other [facility] Other Start: 08-16-2022 Office outpatient vi sit 15 minutes Birgit Bobo [facility] Start: 08-14-2022 End: 08-15-[address] BIRGIT BOBO Facility: Start: 08-08-2022 End: 08-09-2022 ambulatory Reza Proctor [facility] Start: 08-08-2022 End: 08-08-2022 Patient encounter procedure Reza Proctor [facility] Start: 01-23-2022 End: 02-18-[address] BIRGIT BOBO Facility:[facility] Start: 01-12-2022 End: 01-13-[address] BIRGIT BOBO Facility:[facility] Start: 01-09-2022 Gynecological examination normal Birgit Bobo Other [facility] [email or web address] Other Start: 11-15-2021 End: 11-15-2021 ambulatory Seb Bobo Other [facility] [email or web address] Other Start: 11-15-2021 Office outpatient ne w 30 minutes Seb Bobo [facility] Neurosurgery Start: 10-31-2021 End: 11-01-[address] BIRGIT BOBO Facility:[facility] Start: 10-21-2021 End: 10-22-[address] BIRGIT BOBO Facility:[facility] Procedures Date Procedure Procedure Detail Performing Clinician Start: 11-07-2024 CT of small intestine Birgit Bobo MD Work Phone: Start: 07-26-2024 Cortisol total Comment on above: Please Note: The reference interval and flagging for this test is for an AM collection. If this is a PM collection please use: Cortisol PM: 2.3-11.9Performed at: [facility] [id number] Director: Lloyd Wu PhD, Phone: [phone] Start: 03-28-2024 Supine abdominal X-ray MD Birgit Bobo Work Phone: Start: 01-07-2024 Flexible fiberoptic sigmoidoscopy MD Lillian Bobo Work Phone: Start: 11-07-2023 E coli Shiga Toxin EIA MD Birgit Bobo Work Phone: Start: 11-07-2023 Salmonella/Shigella Screen MD Birgit Johnson un Work Phone: Start: 11-02-2023 Computed tomography of abdomen and pelvis with contrast MD Birgit Bobo Work Phone: Start: 10-19-2023 Esophagogastroduodenoscopy MD Birgit Johnson un Work Phone: Start: 08-18-2022 Gris Proctor Start: 12-24-2017 Screening mammography Birgit Jeramie Other Cholecystectomy Reza Proctor Colonoscopy Reza Proctor Excision of cyst Reza Proctor H/O: surgery Seb Bobo Other History of total hysterectomy Reza Proctor Procedure on brain v entricular shunt Reza Proctor Plan of Treatment Date Care Activity Detail Author Start: 10-03-2024 [facility] Start: 03-28-2024 Elastase.pancreatic [Mass/mass] in Stool [facility] Start: 02-24-2024 Covid-19 Vaccine () Covid-19 Vaccine () [facility] Start: 02-24-2024 Influenza vaccination Influenza Vacc ine (#1) [facility] Start: 01-07-2024 [facility] Start: 10-19-2023 [facility] Start: 09-07-2023 Patient referral [facility] Work Phone: Start: 2020 Diabetes Screening Diabetes Screenin g [facility] Start: 2020 Lipid panel Lipid Screening [facility] Start: 2020 Screening for malign ant neoplasm of colon [facility] Start: 2015 Screening for malign ant neoplasm of breast Mammogram Screening [facility] Start: 1996 Screening for malign ant neoplasm of cervix Cervical Cancer Screening [facility] Start: 1994 Hepatitis B Vaccine (1 of 3 - 19+ 3-dose series) Hepatitis B Vaccine (1 of 3 - 19+ 3-dose series) [facility] Start: 1994 Urine microalbumin profile DTaP,Tdap,Td Vaccine (1 - Tdap) [facility] Start: 1993 Anxiety Screening Anxiety Screening [facility] Start: 1993 Depression Screening Depression Scre ening [facility] Start: 1993 Hepatitis C screening Hepatitis C Sc porsha [facility] Start: 1993 HIV screening HIV Screening [facility] CT Abdomen and Pelvis [facility] MG Breast - bilatera l Screening [facility] Patient Education [facility] Work Phone: Patient referral [facility] Work Phone: [facility] Payers Date Payer Category Payer Self-pay 2022 Private Health Insurance 1975 Unknown [id number] 2.16.84 [id number] 1975 Unknown [id number] 2.16.84 [id number] 1975 Unknown [id number] 2.16.84 [id number] 1975 Unknown [id number] 2.16.84 [id number] 1975 Unknown [id number] 2.16.84 [id number] 1975 Unknown [id number] 2.16.8 [id number] 1975 Unknown [id number] 2.16.8 [id number] 1975 Unknown [id number] 2.16.8 [id number] 1959 Unknown [id number] 2.16.8 [id number] Unknown [id number] 2.16 [id number] Unknown [place] [id number] Unknown [id number] 2.16.8 [id number] Unknown [id number] 2.16.8 [id number] Unknown [id number] 2.16.8 [id number] Unknown [id number] 2.16.8 [id number] Social History Date Type Detail Facility Start: 03-12-2024 Sex Assigned At F [facility] Start: 08-08-2022 Tobacco smoking status Light tobacco smoker (finding) [facility] Start: 1975 Sex Assigned At Female F [facility] Start: 10-19-2023 End: 01-07-2024 Tobacco smoking status NHIS Smoker (finding) [facility] Tobacco smoking status [facility] Tobacco smoking consumption unknown [facility] Start: 03-12-2024 History of Social function [facility] National Score (1-100), lower number is lower risk 91 [facility] Start: 1975 Sex assigned at Not on file C [facility] Start: 10-01-2024 End: 11-21-2024 Sex Female (finding) [facility] Medical Equipment Procedure Code Equipment Code Equipment Origin al Text Equipment Identifier Dates ULNAR NERVE TRANSPOSITION Reza Proctor DO 08/18/22 Unknown Elbow L FDA Start: 08-18-2022 ULNAR NERVE TRANSPOSITION Reza Proctor DO 08/18/22 Unknown Elbow L FDA Start: 08-18-2022 Goals Date Patient Goal Desired Activity /State Functional Status Date Assessment Result Facility 08-08-2022 Functional Status No [facility] Clinical Notes 11-15-2021 to 10-01-2024 Note Date & Type Note Facility 10-01-2024 Evaluation note Diagnosis Onset Date Resolution Irritable bowel syndrome with diarrhea acute September 1:54pm [facility] Work Phone: 1(659) 968-279304-09-2025 Evaluation note* Diagnosis Onset Date Resolution Status Admit Date Irritable bowel syndrome wit h diarrhea acute October 01, 2024 1:54pm Sinusitis, acute maxillary acute October 14, 2024 9:48am Class 2 obesity with body ma ss index (BMI) of 36.0 to 36.9 in adult acute November 21, 2024 1 0:55am [facility] Work Phone: 1(767) 826-658501-31-20[facility] Reason for cardiology consult: Syncope Chief Complaint: syncope HPI: Poornima Barker is a 48 y.o. female without prior cardiac history. She has history of depression and GERD. Also she has history of pseudotumor cerebri and she underwent shunt placement in 2011 and she has been doing well. On 05/24 she presented to the hospital with syncope twice that day. She states that she was in the kitchen standing and she did not feel good she describes it as feeling flushed all over and she told her son that she does not feel good and the next thing she was on the floor and apparently she woke up quickly and when she was helped by her son to stand up she felt dizzy and same again and passed out briefly. She denies that she had any symptoms of nausea or vomiting or diarrhea that day. She is not sure that she drank enough water. She denies consuming any alcohol that day or the day before. That never happened to her in the past or after that. On arrival blood pressure 129/79 later 93/64. Brain CT without significant abnormalities. EKG normal. She was felt to be dehydrated and she was given IV fluid and she did not have any recurrence of syncope or even dizziness. She states that she is physically very active and she denies any chest pain or shortness of breath at rest or with exertion. She denies orthopnea or paroxysmal nocturnal dyspnea or palpitations. She denies legs edema or discomfort on exertion She admits that she was told that she snores little but she never been told that she stops breathing during the night and she does not feel sleepy or tired during the daytime. She denies smoking, alcohol or illicit drugs She drinks 1 to 2 cups of coffee a day and 1 to 2 cups of tea. She drinks water and liquid IV. Cardiology ROS: GENERAL: Denies fever, chills, night sweats, weight loss. HEENT: Denies changes in vision, photophobia, changes in hearing, epistaxis, oral bleeding. CARDIOVASCULAR: Denies chest pain, exertional dyspnea, orthopnea/PND, lower extremity edema, palpitations. She reports 2 events of syncope same-day [id number] as described above RESPIRATORY: Denies SOB, coughing, wheezing GI: Denies abdominal pain, nausea/vomiting, heartburn, melena/hematochezia. RENAL: Denies dysuria, hematuria, flank pain. MSK: Denies muscle weakness/pain, arthralgias/joint pain. NEUROLOGIC: Denies LOC, weakness, numbness, headaches. SKIN: Denies abnormal rashes or bleeding. PSYCH: Denies significant anxiety, depression, sleep disturbances. Past Medical History She has a past medical history of Intracranial shunt and Syncope. She has no past medical history of Hypertension. Surgical History She has a past surgical history that includes section, classic; Hysterectomy; Cholecystectomy; Tonsillectomy; Elbow surgery; and Central shunt. Social History She reports that she has been smoking cigarettes. She has never used smokeless tobacco. She reports current alcohol use. No history on file for drug use. Family History Family History Problem Relation Name Age of Onset Coronary artery disease Mother Stroke Father Allergies Sulfanilamide Medications Current Outpatient Medications: colestipol (Colestid) 1 gram tablet, Take 1 tablet by mouth Twice daily at 6am and 6pm., Disp: , Rfl: cranberry extract 425 mg capsule, as directed Orally, Disp: , Rfl: escitalopram (Lexapro) 20 mg tablet, Take 1 tablet by mouth in the morning., Disp: , Rfl: pantoprazole (ProtoNix) 40 mg EC tablet, Take 1 tablet by mouth Twice daily at 6am and 6pm., Disp: , Rfl: traZODone (Desyrel) 100 mg tablet, Take 100 mg by mouth at bedtime., Disp: , Rfl: Last Recorded Vitals Visit Vitals BP 120/82 (BP Location: Left arm, Patient Position: Sitting) Pulse 79 Ht 1.549 m (5' 1 ) Wt 82.1 kg (181 lb) SpO2 97% BMI 34.20 kg/m??? Smoking Status Every Day BSA 1.88 m??? Physical Examination: GENERAL: alert and oriented x3, well developed, in no acute distress. HEAD: atraumatic, normocephalic. EYES: RUBEN, EOMI. NECK: trachea midline, no JVD present, no carotid bruits present. CARDIAC: S1, S2 present. RRR. No murmur, rubs, or gallops. RESPIRATORY: CTAB, no increased effort of breathing, no rales, rhonchi, or wheezing. ABDOMEN: soft, nontender, nondistended. EXTREMITIES: no lower extremity edema. No rash/skin discoloration present. NEURO: strength/sensation equal and symmetric in bilateral upper and lower extremities. PSYCH: appropriate mood, affect, and judgement. Labs: 05/24/2024 White blood count 12, hemoglobin 12.9, hematocrit 37.7, platelets 330 Sodium 143, potassium 3.7, BUN 11, creatinine 1.09, GFR above 60, glucose 111, calcium 9.3 Total bilirubin 0.2, AST 6, ALT 12, alk phos 79, total protein 6.8, albumin 3.4 High-sensitivity troponin less than 4 Last Images: EKG 05/24/2024 showed normal sinus rhythm with sinus arrhythmia, RSR nelson (more content not included)...[facility]01-10-2025 Evaluation note* Diagnosis Onset Date Resolution Status Admit Date Irritable bowel syndrome wit h diarrhea acute July 04 9:19am [facility] Work Phone: 1(359) 554-786209-18-2024 History of Present illness Narrative* Shelley Gamboa APRN.[employer] - 03/12/2024 5:04 PM EDT Glucose - SIBO CPT 28335 Hydrogen Breath Test Poornima Barker 1975 March 12, 2024 Referring Physician: Imelda Jiang DO Indication: NSG TEST INDICATIONS: DIARRHEA R19.7 Weight: 183 lbs Location: [facility] Duration of Test: 2 Hours Hydrogen Methane CO2 MEASURED CORRECTION FACTOR TESTERS NAME Baseline 9:15 am 3 5 4.0 1.37 Maxine Lee RMA Test Solution Given: 100 gm Glucose 10 oz Liquid Maxine Lee RMA #1 - 15 minutes 9:30 am 2 6 3.4 1.61 Maxine Lee RMA #2 - 30 minutes 9:45 am 4 8 2.9 1.89 Maxine Lee RMA #3 - 45 minutes 10:00 am 5 7 3.2 1.71 Maxine Lee RMA #4 - 60 minutes 10:15 am 11 9 3.1 1.77 Maxine Lee RMA #5 - 75 minutes 10:30 am 12 8 3.3 1.66 Maxine Lee, RMA #6 - 90 minutes 10:45 am 12 9 3.2 1.71 MARTITA Bang #7 - 105 minutes 11:00 am 10 8 3.3 1.66 MARTITA Bang #8 - 120 minutes 11:15 am 11 9 3.1 1.77 MARTITA Bang Guidelines Baseline < 10 ppm Hydrogen (H2) > 20 ppm over baseline Methane (CH4) > 20 ppm over baseline Final Test Results: Negative physician Signature:Shelley Gamboa APRN.[employer] documented in this encounter[facility] History and physical note Author Imelda Jiang [facility] October 19, 2023 9:55am Note Date/Time October 19, 2023 9:5 5am [facility] EN[facility] [address] [place] [address] Gastroenterology H&P Signed Patient: Poornima Barker MR#: [id number] : 1975 Acct:[id number] Age/Sex: 48 / F Adm Date: 4 Loc: Room: Type: [facility] Attending Dr: Imelda Jiang DO Copies to: [...] Imelda Jiang DO> 10/19/23 0955 [facility] Work Phone: 1(552) 604-237504-26-2024 [facility]04-[facility] Procedure [facility]01-23-2024 Evaluation note* Encounter Date Diagnosis Assessment Notes Treatment Notes Treatment Clinical Notes Jun, Major depressive disorder with single episode, remission status unspecified (ICD-10 - F32.9) Jun, Insomnia, unspecified (ICD-10 - G47.00) [facility] Other 01-05-2024 Evaluation note* Encounter Date Diagnosis Assessment Notes Treatment Notes Treatment Clinical Notes Jun, Major depressive disorder with single episode, remission status unspecified (ICD-10 - F32.9) call or come in 1 month for recheck gave counseling options Jun, Insomnia, unspecified (ICD-10 - G47.00) as above [facility] Other 02-24-2023 Evaluation + Plan noteExtracted from: Title:ANES Post-operative Note Author:David Montaño MD Date:08/18/22 Plan Transfer/Discharge: Transfer/Discharge Discharge when meets criteria ( From PACU to Ambulatory Surgery Unit, and To home ). Extracted from: Title:ANES Pre-operative Note Author:Marito Montaño MD Date:08/18/22 Plan [place] [employer] Anesthesiologists (ASA) physical status classification: Class II. Anesthetic Preoperative Plan: Anesthesia General. Regional Interscalene block. 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 It is therefore advised notto drive until after your first office visit following surgery. Do not drive while taking pain medication. Reza Proctor, DO [facility] [address] [place] [id number] Reviewed: 08/18/2022 06:11:36 Post Op Patient Instructions - FT (Custom) [facility]02-23-2023 Note [id number]:127[facility] 08-16-2022 Evaluation note* Encounter Date Diagnosis Assessment Notes Treatment Notes Treatment Clinical Notes Jul, Other non-recurrent acute nonsuppurative otitis media of both ears (ICD-10 - H65.193) Stop augmentin. Switch to zpack. Finish all antibiotic. Get OTC debrox for R ear treatment for cerumen. [facility] Other 07-22-2022 NotePROCEDURE: XR ELBOW LT MIN [...] Electronically authenticated by: ROSANNE PERKINS Date: 2022-01-13 07:40[facility]07-22-20[facility] NotePROCEDURE: XR ELBOW LT MIN 3 [...] Electronically authenticated by: ROSANNE PERKINS Date: 2022-01-13 07:40[facility]05-24-20[facility] Evaluation note* Encounter Date Diagnosis Assessment [...] migraine type (ICD-10 - G43.909) October, S/P DIAL BUFFER shunt (ICD-10 - Z98.2) [place] [employer] Other evaluation + Plan note Future Appointments Appointment Date:08/18/2022 09:30:00 AM Scheduled Provider: Location:[facility] Appointment Type:[facility]gery FT [facility] noteNo InformationNortAdvanced Surgical Hospital [email or web address] Other Evaluation note* Diagnosis Onset Date Resolution Status Screening mammogram for breast cancer [facility] Work Phone: Evaluation note* Diagnosis Onset Date Resolution Status Epigastric abdominal pain ac [place] GERD (gastroesophageal reflux disease) acute Screening mammogram for breast cancer acute Chronic constipation acute Epigastric abdominal pain ac [place] GERD (gastroesophageal reflux disease) acute Screening for colon cancer a cute [facility] Work Phone: Evaluation note* Diagnosis Onset Date Resolution Status Diarrhea acute Epigastric abdominal pain ac [place] GERD (gastroesophageal reflux disease) acute [facility] Work Phone: Evaluation note* Diagnosis Onset Date Resolution Status Diarrhea acute [facility] Work Phone: Evaluation note* Diagnosis Diarrhea, unspecified type- Primary documented in this encounter [facility] and [facility] note Author Imelda Jiang [facility] January 07, 2024 12:35pm Note Date/Time January 07, 2024 12:3 5pm [facility] EN[facility] [address] [place] [address] Gastroenterology H&P Signed Patient: Poornima Barker MR#: [id number] : 1975 Acct:[id number] Age/Sex: 48 / F Adm Date: 4 Loc: Room: Type: [facility] Attending Dr: Imelda Jiang DO Copies to: [...] Imelda Jiang DO> 01/07/24 1235 [facility] Work Phone: History general Narrative - Reported* Type Description Date Medical History Migrande headaches Surgical History Procedure:cyst removal;Disease: 1979 Surgical History Procedure:Tonsillectomy;Disease : 1992 Surgical History Procedure:laproscopic;Disease: 1999 Surgical History Procedure: section;Dise ase: 2004 Surgical History Procedure:gallbladder;Disease: 2005 Surgical History Procedure:Hysterectomy;Disease: 2005 Surgical History Procedure:shunt in head;Disease : 2009 Hospitalization History See Sx Hx [facility] Other History general Narrative - Reported* Type Description Date Medical History Migraine headaches Medical History Pseudotumor cerebri syndrome Medical History Transfusion history Surgical History Procedure:cyst removal;Disease: 1979 Surgical History Procedure:Tonsillectomy;Disease : 1992 Surgical History Procedure:laproscopic;Disease: 1999 Surgical History Procedure: section;Dise ase: 2004 Surgical History Procedure:gallbladder;Disease: 2005 Surgical History Procedure:Hysterectomy;Disease: 2005 Surgical History Procedure:shunt in head;Disease : 2009 Hospitalization History See Sx Hx [facility] Other History general Narrative - Reported* Type [...] surgery 07/2022 Hospitalization History See Sx Hx [facility] Other Hospital course Narrative No data available for this section [facility] No data available for this section [facility] Center[facility] note No data available for this section [facility] CenterReason for visit NarrativeReferral Birgit Bobo Pseudotumor Cerebri SyndromeNort [employer] Other Reason for Referral Reason *FU 11/24 Papilled carlos and Visual Field Exams with DETAILED Interpretations and Reports Please Diagnosis 1 Pseudotumor cerebri (G93.2) Referral Organization [facility] urosurgery Referring Provider First Name Seb Referring Provider Last Name Jeramie Referring Provider Specialty Neurologica l Surgery Referred Organization [facility] Referred Provider Robi Parada Ref[facility] Address [address] HospitalMon[facility] [place], [place],[address] Referred Provider Specialty Ophthalmolog y Referral Priority Routine General Notes Sydnee, Yvonne M 022 07:22:14 AM >Received and [...] Recorded Date/ Time Advance Directives No September 06, 024 11:23am Advance Directive Response Recorded Date/ Time Advance Directives No October 15, 024 4:19pm Chief Complaint and Reason for Visit [...] having sym R19.7 Reason for Visit Diarrhea Chief Complaint Admit Date 3 month follow up July 04, 2024 9 :19am 3 month follow up October 01, 2024 1:54 pm Reason for Visit Admit Date Irritable bowel syndrome with diarrhea J anuary 2024 9:19am Chief Complaint Admit Date 3 month follow up October 01, 2024 1:54 pm R19.7 October 03, 2024 1:0 1pm Reason for Visit Admit Date Irritable bowel syndrome with diarrhea A pril 2024 1:54pm Chief Complaint Admit Date 3 month follow up October 01, 2024 1:54 pm R19.7 October 03, 2024 1:0 1pm URI October 14, 2024 9:4 8am Amb Documentation October 14, 2024 9:5 9am Chief Complaint Admit Date 3 month follow up October 01, 2024 1:54 pm R19.7 October 03, 2024 1:0 1pm URI October 14, 2024 9:4 8am Amb Documentation October 14, 2024 9:5 9am K58.0 R10.13 November 07, 2024 8:16a m Discuss Weight Loss November 21, 2024 10:55 am Reason for Visit Admit Date Irritable bowel syndrome with diarrhea A pril 2024 1:54pm Sinusitis, acute maxillary October 14, 025 9:48am Class 2 obesity with body ma ss index (BMI) of 36.0 to 36.9 in adult November 21, 2024 10:55am Additional Source Comments Patient Care team informatio n (unrecognized section and content) Team Status: Active Member Role Status Dates Birgit Bobo MD Primary Care Provider Active Team Status: Inactive Member Role Status Dates Birgit Bobo MD Primary Care Provider Active Start: October 01, 2024 End: October 01, 2024 Imelda Jiang DO Attending Provider Active St art: October 01, 2024 End: October 01, 2024 Team Status: Inactive Member Role Status Dates Birgit Bobo MD Primary Care Provider Active Start: October 03, 2024 End: October 03, 2024 Imelda L Ly , DO Attending Provider Active St art: October 03, 2024 End: October 03, 2024 Team Status: Inactive Member Role Status Dates Birgit Bobo MD Primary Care Provide r, Attending Provider Active Start: October 14, 2024 End: October 14, 2024 Team Status: Active Member Role Status Dates Birgit Bobo MD Primary Care Provider Active Start: October 14, 2024 Tayla Vargas CMA Attending Provider Active St art: October 14, 2024 Team Status: Inactive Member Role Status Dates Birgit Bobo MD Primary Care Provider Active Start: November 07, 2024 End: November 07, 2024 Imelda L Ly , DO Attending Provider Active St art: November 07, 2024 End: November 07, 2024 Team Status: Inactive Member Role Status Dates Birgit Bobo MD Primary Care Provide r, Attending Provider Active Start: November 21, 2024 End: November 21, 2024 Team Status: Active Member Role Status Dates Birgit Bobo MD Primary Care Provider Active Team Status: Active Member Role Status Dates Birgit Bobo MD Primary Care Provider Active Start: July 26, 2024 Van Salcedo MD Attending Provider Active Star t: July 26, 2024 Team Status: Inactive Member Role Status Dates Birgit Bobo MD Primary Care Provider Active Start: October 01, 2024 End: October 01, 2024 Imelda L Ly , DO Attending Provider Active St art: October 01, 2024 End: October 01, 2024 Team Status: Inactive Member Role Status Dates Birgit Bobo MD Primary Care Provider Active Start: October 03, 2024 End: October 03, 2024 Imelda L Ly , DO Attending Provider Active St art: October 03, 2024 End: October 03, 2024 Team Status: Inactive Member Role Status Dates [...] Care Provider Active Start: October 22, 2023 Erityler Willett Attending Provider Active Start: October 22, [...] 28, 2024 End: March 28, 2024 Imelda Jiang , DO Attending Provider Active St art: March 28, 2024 End: March 28, 2024 [employer] Relationship Specialty Start Date End Date Birgit Bobo MD [address] [place] [id number] PCP - General Family Medicine 03/12/24 Team Status: Inactive Member Role Status Dates Birgit Bobo MD Primary Care Provider Active Start: July 04, 2024 End: July 04, 2024 Imelda Jiang DO Attending Provider Active St art: July 04, 2024 End: July 04, 2024 Team Status: Inactive Member Role Status Dates Birgit Bobo MD Primary Care Provide r, Attending Provider Active Start: October 14, 2024 End: October 14, 2024 Team Status: Active Member Role Status Dates Birgit Bobo MD Primary Care Provider Active Start: October 14, 2024 Tayla Vargas CMA Attending Provider Active St art: October 14, 2024 Team Status: Inactive Member Role Status Dates Birgit Bobo MD Primary Care Provider Active Start: November 07, 2024 End: November 07, 2024 Imelda Jiang , DO Attending Provider Active St art: November 07, 2024 End: November 07, 2024 Team Status: Inactive Member Role Status Dates Birgit Bobo MD Primary Care Provide r, Attending Provider Active Start: November 21, 2024 End: November 21, 2024 INFORMATION SOURCE (unrecogn ized section and content) DATE CREATED AUTHOR 08/17/2022 [facility] DATE CREATED AUTHOR AUTHOR'S ORGANIZ ATION 02/25/2023 [facility] DATE CREATED AUTHOR AUTHOR'S ORGANIZ ATION 05/25/2024 [facility] DATE CREATED AUTHOR AUTHOR'S ORGANIZ ATION 07/28/2024 [facility] DATE CREATED AUTHOR AUTHOR'S ORGANIZ ATION 11/08/2024 [facility] REASON FOR VISIT (unrecogniz ed [...] or prosecute any alcohol or drug abuse patient.[facility] FOR RECORDS PERTAINING TO PATIENTS WHO [...] BE BASED ON THE PRIMARY CLINICAL RECORDS. [email or web address] [facility]. provides no warranty or guarantee of the accuracy or completeness of information in this document.
== END 2024-12-12 09:36 | disposition home or self-care (01) ==
LOC: CT 09:35
PROVIDERS: PCP Family Medicine; Visit Provider Family Medicine
DX: R51.9 Headache, unspecified (principal); Z98.2 Presence of cerebrospinal fluid drainage device
CPT/HCPCS: 70450

== ENCOUNTER 2025-03-08 21:40 | Observation (INO) | payer OTHER, SELFPAY ==
[2025-03-08] VITALS (23 sets, daily range): BP systolic 96–135; BP diastolic 59–115; PULSE 64–107; O2SAT 94–100; BMI 34.6
--- OUTSIDE RECORDS SUMMARY | 2025-03-08 21:47 | XMS_ITS | CCD ---
Author Organization [facility] CliniSyin Care Team Providers Care Director Corporate Sales Name Role Phone Seb Bobo Unavailable DINESH [...] BOBO, DR DINESH Franco Primary Care Unavailable ZITRE, DR ROSANNE Devi Consulting Unavailable BOBO, DR DINESH Franco Consulting Unavailable BOBO, DR DINESH Franco Admitting Unavailable BOBO, DR DINESH Franco Attending Unavailable BOBO, DR DINESH Franco Primary Care Unavailable ZITRE, DR ROSANNE Devi Consulting Unavailable BOBO, DR DINESH Franco Consulting Unavailable Dinesh Bobo Unavailable Reza Proctor Attending Unavailable Reza Proctor Referring Unavailable Reza Proctor Admitting Unavailable Reza Proctor Attending Unavailable Reza Proctor A Referring Unavailable Hitesh, Reza A Admitting Unavailable Reza Proctor A Attending Unavailable Reza Proctor A Referring Unavailable Reza Proctor Admitting Unavailable MD Dinesh Bobo Primary Care Provider DO Imelda Jiang Attending Provider MD Dinesh Bobo Primary Care Provider DO Imelda Jiang Attending Provider [phone] Dinesh Bobo MD Primary Care Provider VAN HERNANDEZ Attending Unavailable Dinesh Bobo MD Primary Care Provider Ly DO, Imelda L Attending Provider [phone] Ly, Imelda L Attending Unavailable Ly, Imelda L Admitting Unavailable Dinesh Bobo Primary Care Unavailable Ly, Imelda L Admitting Unavailable Ly, Imelda L Attending Unavailable Dinesh Bobo Primary Care Unavailable Ly, Imelda L Admitting Unavailable Ly, Imelda L Attending Unavailable Dinesh Bobo Primary Care Unavailable Ly, Imelda L Admitting Unavailable Ly, Imelda L Attending Unavailable Dinesh Bobo Primary Care Unavailable Dinesh Bobo MD Primary Care Provider Ly DOImelda Attending Provider Dinesh Bobo MD Attending Provider Tayla Vargas CMA Attending Provider Unavailabl Dinesh Garcia MD Primary Care Provider Ly DOImelda Attending Provider Dinesh Bobo MD Attending Provider Dinesh Bobo MD Primary Care Provider Jaylin Carrero APRN Attending Provider Allergies Allergy Classification Reported Allergen(s) Allergy Type Date of Onset Reaction(s) Facility (20 sources) Sulfanilamide; Translations: [SULFANILAMIDE] Drug Allergy 12-20-19 23 [facility] (4 sources) Sulfonamides (Antibiotic); Translations: [sulfa drugs] Drug allergy Respiratory failure [facility] (1 source) Sulfonamides (Antibiotic) Drug allergy (disorder) 12-03-19 [address] [facility] Repository (19 sources) cefdinir Drug Allergy 09-07-19 24 Unknown, [facility] (2 sources) Amoxicillin Drug Allergy 01-12-20 07 AMOXICILLIN [facility] Other (2 sources) Pseudoephedrine Drug Allergy Unknown [facility] Other (16 sources) sulfADIAZINE Drug Allergy 09-07-19 24 Comment:[facility] (2 sources) Substance with sulfonamide structure and antibacterial mechanism of action (substance) Drug allergy 01-12-20 07 SULFA [facility] Other (2 sources) Allergies Reconciled Propensity to adverse reactions Unknown [facility] Other (2 sources) patient allergy list reviewed by nurse or physicia Propensity to adverse reactions 01-16-20 19 Comment:Done [facility] Other (2 sources) 12 Hour Decongestant Allergy to substance 09-05-19 [facility] (1 source) cefdinir Drug Allergy 10-15-19 [facility] Repository (1 source) sulfADIAZINE Drug Allergy 10-15-19 [facility] Repository Medications Current Medications Medication Drug Class(es) Dates Sig (Normalized) Sig (Original) [id number] 200 actuat albuterol 0.09 mg/actuat metered dose inhaler (5 sources) beta2-Adrenergic Agonist Start: 10-14-2024 End: 02-09-2025 take 1 puff(s) by inhalation every four to six hours as needed Albuterol Sulfate 90 mcg/actuation HFA aerosol inhaler Active 2 PUFF INHALATION EVERY 4-6 HOURS as needed for bronchospasm 6.7 February 09, 2025 2:46pm Complies with drug therapy Albuterol Sulfate 90 mcg/actuation HFA aerosol inhaler [...] 4 more days for 5 Jul, Active busPIRone hydrochloride 5 mg oral tablet (2 sources) Start: 01-27-2025 take 1 tablet by mouth twice daily as needed for anxiety Buspirone 5 mg tablet Active 5 MG PO Twice daily as needed for anxiety 60 January 27, 2025 12:00am Complies with drug therapy Cranberry Fruit (15 sources) Non-Standardized Food Allergenic Extract, Non-Standardized Plant Allergenic Extract Start: 10-08-2023 take 1 capsule by mouth once daily Start: 10-08-2023 take 1 capsule by mo uth once daily Cranberry Fruit 400 mg capsule Active 400 MG PO Daily October 08, 2023 12:00am administer with a meal Complies with drug therapy Start: 10-08-2023 take 1 capsule by mo uth once daily Cranberry Fruit 400 mg capsule [...] TAKE 1 TABLET BY MOUTH EVERY DAY Complies with drug therapy Start: 07-04-2024 End: 08-19-2024 Escitalopram Oxalate 20 mg t ablet Discontinued 20 MG PO .COMPLEX July 04, 2024 10:39am August 19, 2024 4:52pm 20mg orally Start: 10-26-2023 End: 07-04-2024 take 1 tablet by mouth once daily Escitalopram Oxalate 20 mg tablet Discontinued 0 .ROUTE .COMPLEX 90 June 04, 2024 9:29am July 04, 2024 [...] Status: Ordered take 1 capsule by mo [facility] every twenty-four hours NexIUM 24HR 20 [...] # 50 tab(s), Refills(s) 0, Pharmacy: [facility], 163, cm, 08/09/22 5:10:00 EST, Height/Length Dosing, 91.2, kg, 08/09/22 5:10:00 EST, Weight Dosing Start Date: 08/18/22 Status: Ordered Start: 08-08-2022 take 1 tablet by meseret every six hours as needed for pain ibuprofen 600 mg Tab 600 mg = 1 tab(s), Oral, q6hr, PRN as needed for pain, Refills(s) 0 Start Date: 08/08/22 Status: Ordered Multivitamin (Daily Multi-Vi tamin) tablet (4 sources) Start: 12-19-2024 take 1 tablet by meseret th once daily Start: 12-19-2024 take 1 tablet by meseret th once daily Multivitamin (Daily Multi-Vitamin) tablet Active 1 TAB PO Daily December 19, 2024 12:00am Complies with drug therapy ondansetron 4 mg disintegrating oral tablet (20 sources) Serotonin-3 Receptor Antagonist Start: 07-04-2024 End: 12-19-2024 take 1 tablet by mouth every eight hours as needed for nausea and vomiting Ondansetron 4 mg tablet,disintegrating Active 4 MG PO Every 8 hours as needed for nausea and vomiting December 19, 2024 1:32pm Complies with drug therapy Start: 10-03-2023 End: 12-13-2023 take 1 tablet [...] daily 180 90 December 13, 2023 12:00am Complies with drug therapy Start: 10-26-2023 End: 12-13-2023 take 1 tablet [...] 07, 2023 12:00am October 26, 2023 10:35am Semaglutide (Weight Loss) (5 sources) Start: 01-27-2025 Semaglutide (W eight Loss) (Wegovy) 0.25 mg/0.5 mL pen injector Active 0.25 MG SUBCUT every week 2 January 27, 2025 1:53pm administer weeks 1 through 4 of therapy Complies with drug therapy Start: 12-23-2024 End: 01-27-2025 Semaglutide (Weight Loss) (W egovy) 0.25 mg/0.5 mL pen injector Discontinued 0.25 MG SUBCUT every week 2 December 23, 2024 12:00am January 27, 2025 1:53pm administer weeks 1 through 4 of therapy Start: 12-23-2024 traZODone hydrochloride 150 mg oral tablet (20 sources) Serotonin Reuptake Inhibitor Start: 01-27-2025 End: 02-09-2025 take 1 tablet by mouth once daily at bedtime Trazodone 150 mg tablet Active 150 MG PO Daily at bedtime February 09, 2025 2:46pm Complies with drug therapy Start: 10-26-2023 End: 01-27-2025 take 1 tablet by mouth once daily at bedtime Trazodone 100 mg tablet Discontinued 0 .ROUTE .COMPLEX November 20, 2024 11:45am January 27, 2025 1:49pm TAKE 1 TABLET BY MOUTH ONCE DAILY [...] Once a day for 30 days Active ubrogepant 100 mg oral tablet (3 sources) Start: 12-22-2024 take 1 tablet by mouth once as needed for headache Ubrogepant (Ubrelvy) 100 mg tablet Active 100 MG PO Once as needed for migraine headache December 22, 2024 12:00am Complies with drug therapy Completed/Discontinued Medications Medication Drug Class(es) Dates Sig (Normalized) Sig (Original) acetaminophen 325 mg / HYDROcodone bitartrate 5 mg oral tablet (2 sources) Opioid Agonist Start: 08-18-2022 [place] 325 mg-5 mg oral tablet See Instructions, for pain, 40 tab(s), Refill(s) 0, 1-2 tab(s) Oral q4hr, [facility], 163, cm, 08/09/22 5:10:00 EST, Height/Length Dosing, 91.2, kg, 08/09/22 5:10:00 EST, Weight Dosing Start Date: 08/18/22 Status: Ordered benzonatate 200 mg oral capsule (6 sources) Non-narcotic Antitussive Start: 10-14-2024 End: 11-21-2024 Benzonatate 200 mg capsule Discontinued 200 MG PO 2-3 TIMES PER DAY as needed for cough October 14, 2024 12:00am November 21, 2024 10:57am cholestyramine resin 4000 mg powder for oral suspension (10 sources) Bile Acid Sequestrant Start: 11-06-2023 End: [...] dose colestipol hydrochloride 1000 mg oral tablet (9 sources) Bile Acid Sequestrant Start: 03-28-2024 End: 07-04-2024 Colestipol 1 gram tablet Discontinued 1 GM PO Twice daily March 28, 2024 12:00am July 04, 2024 10:27am doxycycline hyclate 100 mg oral tablet (6 sources) Tetracycline-class Drug Start: 10-14-2024 End: 11-21-2024 take 1 tablet by mouth twice daily Doxycycline Hyclate 100 mg tablet Discontinued 100 MG PO Twice daily October 14, 2024 12:00am November 21, 2024 10:57am famotidine 40 mg oral tablet (13 sources) Histamine-2 Receptor Antagonist Start: 10-03-2023 End: 05-30-2024 take 1 tablet by mouth once daily at bedtime Famotidine 40 mg tablet Discontinued 40 MG PO Daily at bedtime October 03, 2023 12:00am May 30, 2024 11:32am rifAXIMin 550 mg oral tablet (16 sources) Rifamycin Antibacterial Start: 08-11-2024 End: 11-21-2024 take 1 tablet by mouth three times daily Rifaximin (Xifaxan) 550 mg tablet Discontinued 550 MG PO Three times daily 42 September 22, 2024 4:17pm November 21, 2024 11:10am SUMAtriptan 50 mg oral tablet (20 sources) Serotonin-1b and Serotonin-1d Receptor Agonist Start: [...] DAY NEEDED Oral for 9 Days Not-Taking/PRN Tirzepatide (Weight Loss) (5 sources) Start: 11-21-2024 End: 12-23-2024 Tirzepatide (Weight Loss) (Z epbound) 2.5 mg/0.5 mL pen injector Discontinued 2.5 MG SUBCUT every week 2 November 21, 2024 12:00am December 23, 2024 1:35pm for 4 weeks Start: 11-21-2024 Tirzepatide (W eight Loss) (Zepbound) 2.5 mg/0.5 mL pen injector Active 2.5 MG SUBCUT every week 2 November 21, 2024 12:00am for 4 weeks Complies with drug therapy Start: 11-21-2024 Tirzepatide (W eight Loss) (Zepbound) 2.5 mg/0.5 mL pen injector Active 2.5 MG SUBCUT every week 2 November 21, 2024 12:00am for 4 weeks Problems Active Problems Problem Classification Problem Date Documented Da te Episodic/Chronic Abdominal pain (20 sources) Abdominal pain; Translations: [Abdominal pain, other specified site] Onset: 3 09-07-2023 Episodic Endometriosis (3 sources) Endometriosis (clinical) 08-08-2022 Chronic Esophageal disorders (20 sources) Gastroesophageal reflux disease; Translations: [Gastro-esophageal reflux disease without esophagitis] 08-08-2022 Chronic Genitourinary symptoms and ill-defined conditions (2 sources) Dysuria; Translations: [Dysuria] Episodic Headache; including migraine (12 sources) Migraine; Translations: [Migraine, unspecified, not intractable, without status migrainosus] Onset: 2 Resolved: 2 Chronic Headache; including migraine (10 sources) Headache; Translations: [Headache] Onset: 8 12-09-2024 Episodic Headache; including migraine (4 sources) Headache; including migraine Mood disorders (6 sources) Major depression, single episode; Translations: [Major [...] Translations: [OTALGIA BILATERAL] Onset: 3 Episodic Other ear and sense organ disorders (9 sources) Lump in ear canal; Translations: [Other specified disorders of ear, unspecified ear] Episodic Other gastrointestinal disorders (9 sources) Irritable bowel syndrome with diarrhea; Translations: [Irritable bowel syndrome with diarrhea] 07-04-2024 Chronic Other gastrointestinal disorders (5 sources) Irritable bowel syndrome with diarrhea; Translations: [Irritable bowel syndrome] Onset: 5 07-04-2024 Chronic Other gastrointestinal disorders (13 sources) Chronic constipation; Translations: [Other constipation] 10-03-2023 Episodic Other gastrointestinal disorders (3 sources) Other constipation; Translations: [Constipation, unspecified] 10-03-2023 Episodic Other gastrointestinal disorders (11 sources) Diarrhea; Translations: [Diarrhea, unspecified] 12-13-2023 Episodic Other nervous system disorders (16 sources) Benign intracranial hypertension; Translations: [Benign intracranial hypertension] Onset: 4 08-08-2022 Chronic Other nervous system disorders (6 sources) Benign intracranial hypertension; Translations: [BENIGN INTRACRANIAL HYPERTENSION] Onset: 2 Resolved: 2 Chronic Other nervous system disorders (1 source) Presence of cerebrospinal fluid drainage device Onset: 2 Resolved: 2 Chronic Other nervous system disorders (8 sources) Device in situ; 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] 12-09-2024 Chronic Other nervous system disorders (1 source) [...] Chronic Other nutritional; endocrine; and metabolic disorders (17 sources) Obesity; Translations: [Class 2 obesity with body mass index (BMI) of 36.0 to 36.9 in adult] 11-21-2024 Chronic Other screening for suspected conditions (not mental disorders or infectious disease) (20 sources) Patient encounter status; Translations: [Encounter for screening mammogram for malignant neoplasm of breast] 09-07-2023 Episodic Other upper respiratory infections (9 sources) Acute maxillary sinusitis; Translations: [Acute recurrent maxillary sinusitis] Onset: 6 10-17-2024 Episodic Otitis media and related conditions (6 sources) Otitis media, unspecified, right ear; Translations: [...] neoplasm of breast] Episodic Residual codes; unclassified (4 sources) Insomnia; Translations: [Insomnia, unspecified] Onset: 5 01-28-2025 Episodic Residual codes; unclassified (2 sources) Family history of diabetes mellitus; Translations: [Family history of diabetes mellitus] Episodic Residual codes; unclassified (2 sources) Insomnia, unspecified Episodic Residual codes; unclassified (1 source) Pain, unspecified; Translations: [Pain, unspecified] Onset: 4 Episodic Substance-related disorders (3 sources) Smoker 08-08-2022 Chronic Comment on above: Added secondary to d ocumentation in Social History. Syncope (10 sources) Syncope and collapse; Translations: [Syncope and collapse] Onset: 5 Episodic Unclassified (3 sources) History of clinical finding in subject 08-08-2022 Unclassified (3 sources) H93.8X9 - Other specified disorders of ear, unspecified ear Past or Other Problems Problem Classification Problem Date Documented Da te Episodic/Chronic Allergic reactions (2 sources) Contact dermatitis; Translations: [Contact dermatitis and other eczema, due to unspecified cause] Onset: 11-19-2014 Episodic Nausea and vomiting (2 sources) Nausea; [...] [Nondependent tobacco use disorder] Onset: 10-16-2016 Episodic Skin and subcutaneous tissue infections (2 sources) Pyoderma; Translations: [Pyoderma] Onset: 01-15-2019 Episodic Spondylosis; intervertebral disc disorders; other back problems (2 sources) Sciatica; Translations: [Lumbago with sciatica, right side] Onset: 11-29-2015 Episodic Results Test Name Value Interpretation Reference Range Facility CT enterographyon 11-07-2024 CT enterography [facility] [place] [address] CT Scan Report Signed Patient: Poornima Barker MR#: [id number] : 1975 Acct:[id number] Age/Sex: 49 / F ADM Date: 11/07/24 Loc: CT Room: Type: [facility] Attending Dr: Imelda Jiang DO Copies [...] unremarkable. Uterus has been removed.] Peritoneum/Retroperiton eum:The [employer] shunt tubing is seen coiled within the pelvis. Trace free fluid seen within the pelvis. No free air or lymphadenopathy.[ Abd wall/Bones:No acute findings. Osseous structures demonstrate degenerative change. No sacroiliitis.[ CT/CT enterography IMPRESSION: No CT evidence of small bowel abnormality. Hepatic steatosis. Impression dictated by: Oscar Roper Jr., D.O. 11/07/2024 10:07 AM Dictation Location: [place] [address] Transcribed By: [facility] 11/07/24 1007 Dictated By: Oscar Roper Jr, DO 11/07/24 1005 Signed By: 11/07/24 1007 Normal [facility] Calprotectin [Mass/mass] in StoolOrdered By: Imelda Jiang on 10-03-2024 Calprotectin (Stl) [Mass/Mass] Calprotectin [Mass/mass] in Stool 0-120 [facility] Comment on above: Concentration Interp retation Follow-Up< 5 - 50 ug/g Normal None>50 -120 ug/g Borderline Re-evaluate in 4-6 weeks >120 ug/g Abnormal Repeat as clinically indicatedPerformed at: - [facility] [id number] Director: Dasha Lowery MD, Phone: [phone] Calprotectin (Stl) [Mass/Mass] 65 ug/g 0-120 [facility] Comment on above: Concentration Interp retation Follow-Up< 5 - 50 ug/g Normal None>50 -120 ug/g Borderline Re-evaluate in 4-6 weeks >120 ug/g Abnormal Repeat as clinically indicatedPerformed at: - [facility] [id number] Director: Dasha Lowery MD, Phone: [phone] Calprotectin, Fecalon 2024 Calprotectin, Fecal 65 Normal 0-120 [facility] Comment on above: Result Comment: Conc entration Interpretation Follow-Up < 5 - 50 ug/g Normal None >50 -120 ug/g Borderline Re-evaluate in 4-6 weeks >120 ug/g Abnormal Repeat as clinically indicated Performed at: [facility] [address] [place] [id number] Development Officer: Dasha Lowery MD, Phone: [phone] PERFORMED BY: [facility] [address] [place] [address] PATHOLOGIST CARD FEEDER RODNEY QUEZADA M.D. Performed By: #### C ALPROTECT #### [facility] , Laboratory - Chemistry and C hemistry - challengeon 07-26-2024 TSH Qn 1.781 m[IU]/L 0.358-3.740 [facility] Office Visiton 07-25-2024 Follow-up visit [id number] Chanda Barker 1975 F Date Provider Department Center 07/25/2024 [id number] HERNANDEZ Family History Problem Relation Age of Onset Coronary artery disease Mother Stroke Father Family Status - Relation Status Age at Mother Father Level of Service:06813 HI OFFICE/OUTPATIENT NEW MODERATE MDM 45 MINUTES Reason for Visit and Comments: Syncope [506] - Had syncopal episode back in Apr 2024. Echo was performed a few weeks ago. She did not feel chest pain, SOB, or palpitations. Dizziness [487331] Normal [facility] Pancreatic Elastase, Stoolon 03-28-2024 Pancreatic Elastase, Stool 612 Normal >200 [facility] Comment on above: Result Comment: Resu lt Units: ug Elast./g Severe Pancreatic Insufficiency: <100 Moderate Pancreatic Insufficiency: 100 - 200 Normal: >200 Performed at: [facility] [address] [id number] Development Officer: Dasha Lowery MD, Phone: [phone] PERFORMED BY: [place] [address] PATHOLOGIST CARD FEEDER SHAW ANGELO M.D. Performed By: #### E LASTASE STOOL #### [facility] , XR KUBon 03-28-2024 XR KUB [facility] Main [address] [address] XRay Report Signed Patient: Poornima Barker MR#: [id number] : 1975 Acct:[id number] Age/Sex: 48 / F ADM Date: 03/28/24 Loc: XD Room: Type: [facility] Attending Dr: Imelda Jiang DO Copies [...] John Love M.D.03/28/2024 11:37 AM Dictation Location: RADIO-PC-07 Transcribed By: GRANT 03/28/241136 Dictated By: John Love II, MD 03/28/241131 Signed By: 03/28/241136 Normal [facility] [place] 01-07-2024 L Specimen: [id number] Received: 01/07/24 Status: RACHEL Polanco Num: [id number] Spec Type: Surgical Subm Dr: Imelda Jiang DO Tissues: A Colon Biopsy (RANDOM COLON BX R/O MICROSCO) Procedures: HE/2, Gross/Micro L4 Age/ Patient Sex Location Account Attending Physician Poornima Barker 48/F [id number] Imelda Jiang DO SPEC NUM: [id number] RECD: 01/07/24 STATUS: RACHEL POLANCO NUM: [id number] IDALIA: 01/07/[address]: Imelda Jiang DO ENTERED: 01/07/24 [facility] DR: SPEC TYPE: Surgical DEPT: [...] cm, entirely submitted in A1. CPT Codes 24819 Specimen: [id number] Received: 01/07/24 Status: RACHEL Polanco Num: [id number] Spec Type: Surgical Subm Dr: Imelda Jiang DO Tissues: A Colon Biopsy (RANDOM COLON BX R/O MICROSCO) Procedures: HE/2, Gross/Micro L4 Patient: LuceroPoornima Devi [id number] (Continued) Signed (signature on file) Jeremiah Potts MD 01/09/24 1542 Normal [facility] Elastase.pancreatic [Mass/ma ss] in Stoolon 11-07-2023 Elastase.pancreatic (Stl) [Mass/Mass] 232 >200 [facility] Comment on above: Result Units: ug [address] st./g Severe Pancreatic Insufficiency: <100 Moderate Pancreatic Insufficiency: 100 - 200 Normal: >200Performed at: [address] [id number] Director: Dasha Lowery MD, Phone: [phone] No Panel Informationon 11-06 Clostridium difficile (PCR)(LAB) Negative NEGATIVE [facility] Miscellaneous Test Comment See comment [facility] Comment on above: Specimen Source: ST - Stool - Stool - 700.100 Stool Campylobacter Culture Res 1 See comment [facility] Comment on above: [facility], No Panel InformationOrdered By: Dinesh Bobo on 11-07-2023 E coli Shiga Toxin EIA [facility] Salmonella/Shigella Screen [facility] Nonvisit Note - OTon 023 Nonvisit Note - OT , pt cxl'd in remind system, no reason available. Normal [facility] Nonvisit Note - OTon 023 Nonvisit Note - OT pt cxl'd in remind system, no reason available. Normal [facility] Nonvisit Note - OTon 023 Nonvisit Note - OT Pt. cx, d/t an emergency. [facility] OT - Home Exercise Programon 11-08-2022 OT - Home Exercise Program [id number]#1.00 CD:127 [facility] OT - Progress Noteson 2022 OT - Progress Notes [id number]#1.00 CD:127 [facility] OT - Orderson 10-20-2022 OT - Orders [id number]#1.00 CD:127 [facility] OT - Assessmentson OT - Assessments [id number]#1.00C D:127 [facility] OT - Consentson 10-19-2022 OT - Consents [id number]#1.00C D:127 [facility] OT - Home Exercise Programon 10-19-2022 OT - Home Exercise Program [id number]#1.00C D:127 [facility] Coding Summary.on 10-12-2022 Coding Summary. CD:[id number] Ww+ PGhlYWQ+DH7YPAAcS18ybZV xmM8pI3RIQIxAGxylODWWFN jGOlYqfvLjCX8kyFNqYBNn IC8+QK5eUUDwSnpzbXVxb0Q 9yHV1Q46ddg4iKUrbcIB5OL NdLoUcfjymb2ifgSr5SRnpS mluOyBt ERVuyM69UYT3eB54Wy31bKB myEOrg2yviEr5ByHmHRYyNT Q0eFhqUKfvg5VgEPHjS71zw NLai0S5 PSHmoNlcbCRlPrVsdBJ6xW0 mHMfwtwjlg5mgfpjhMng1gs 19jTScq4F1pEX2R4RpvaR3K GJvbGQg AicinNEJpZ7yueaef9vnogj tZcWoWOOpICs7XNp9AJWzbZ qvQoBhPG23ABN1TBSckpLkU 2FsLWFs aRdgJdU3v8J5Js4SO2JJArz gE1HBEQQXSSjswUH+PC90cj 09V4IuSkitPfh7KRPiYJU9p DY3nV1o GHBvNSwss1Y4lEB2H1EnrgN cjg8zy5iqRYUuTZfhN32sgE Zxn6Y6DBBynBP9JIPflMbdL iBzaG93 Oyc+PPAmcBqfd7CmChwbd1x ir2nzsMe0UlohHLNsywHbrX yhSKG6t4UpWs1yHXYzoUZ9b LO9gV7q QzDsOdQ5UBxiS581VwIyqUZ lCwtgF97vL0YynBX+PHRyPj o7LLKcdDgeQM1cL2RwIZQhs mctbGVm hEmeDZ2mXQUabezxMSQxzL5 uNNScG3v5IzAzTbP7VUfyY1 RaSXVoitbqYl84oY5oLuNnV lX1YVim L9ZnirE5CSHfkIBvVVvdOPS 2H93vw9Y5ZKPeWZHmVRR1sT C2qU7ecApblhcloRTweUnfg mVydGlj TYyaAGlwG100WECglSxpLcZ vZGluZyBEYXRlOiAgMDQvMj AvMjAyMzwvdGQ+TNXfZPL4a WxlPSAn nXUzWCmqKm4ohTtenXkaFK8 sAAKeztasWUDapA5tTRFdgN RpjWtjCW7nPXWjiglsu653E iAxMHB0 WBZhbGWgD8JkxO2vQmBeQBA nAITqT9FvcYMkJTihY916XB woKaZ2OSThykKkB8EdTTDym WduOiB0 s4K6Mc7Kq0AtgjcwS6TvpXX uZzTgBpusZNy8U0HkGuaqtU I+NX54GKOnYX09MYe2QRO4t WxlPSdi IPLjC0GcpQ0kUmBaABRfMLD kOyc+PHRhYmxlIHdpZHRoPS jmGQGiQmXapLsaSH7pZi3tP GVyLWNv yBqgcKIoIhYrx3kiGRHtGWy zHU9dnKwkX3XpvQU3TKBtj6 z7Ne95N51xK0QmwSA+PGNvb CN4yBT9 xJ8qBpZqInX7ZLahY942VmU xyYMlKqjwn7pmm5lfmIz4Wa B5ITZcnsVfeRkwQGN4u3TrH b59S66m IHdpZHRoPSIxNSUiIHZhbGl jcg6xqE4jHs8+YWEojBE6eQ P0mB6qJcHjYyM9HGbxO313L nRvcCIv Eaxlg4bfu6wxfEi0QlOyONI jrcNjiXgxNSY0r0IhRi53N8 GfpXzgd6LpYuo2ld20jQXgn 5P3sMW6 G7RsBFZanrgflTLxxHqaYS7 aEQTaowxoMJXefJ8mURTaO9 l8OtBsJxV6QCajO8HvgnF2Y GJvbGQg NYHvbVEFiD4ebmumd5vxavd dShDjVGIoVMb3YHh0LWOyhF dgDtMoZPJ0ZkD3WAW6pNYtx P6niOsj ozepeD6wZwx+VDL6sKXdrVF NTA3mOiyvxGA+MYKjFWY7oB ozHWnaXXQmhF8gDQBdS8e0T iAwLjA1 PKnjF1GpueI7DANklVVaVFO yiKHYiX6zmnzod2hqspdnFk AxSHHcIEk0WSw4GTNrzSoxN iBsZWZ0 RbY0FYU4sKKdaZ1jpDifhwf qgH0aPbr+LzvybYqnZON7ZY x3D4CyGmq6IMBfwNugJH0pc GFkZGlu Eg9hbVpazGbiPT9nGKIyfvb rk307RnMaz1qpUWHheSHiEM klXVV3Z01ee0M3AIUaFDEsP WR1lWB3 eN3fbFzujpfxhYTnuJcbioI xkVerHHfoBQzmJ834RSPwqY pmGwGtNGe0S5HpCmd4CLGfu KarTV6j iMUmZGawKx0kcDndwCmyQP9 gCKKyafgdr251XlQrx9kvLE WncYIxRVsyHKD0O47tv3S1Q CMwMDAw WCT0sPV7cW1kuPptmtiomFQ mdDsgdmVydGljYWwtYWxpZ2 07PZTqqSbgSlSbdTb6E7HzB ja2EWKm iGrlPV1bbQYcUXspDq1pbYb uoVqtVJ7qNXHawxrco426Gy Rmc1akXMCmkAJdVTseMPE5Y 53ee7Z2 TZOeNBEtDNR9rBC8nF9qnPb nbjogbGVmdDsgdmVydGljYW nyJDldC687VQKlnRkyUyCar GllbnQg KRccHQg7T0GrNctwxRP+PC9 6MWZjZM02qFHzpADkh1umcJ s7YoYeRDFhSWV8nLjfWKehe 3JkZXIt B65gzGLtz3D1BHDylCjboVH hIlRcjLC6zH1cIPongwkkh7 znfhujLtooz6glyr98nJ71W 29sIHdp ZHRoPSIzMCUiIHZhbGlnbj0 kmX1nBl2+KPBaiXW9gJA0mF 1vBRXeWhW3YKkqA391IrPdf CIvPjxj l3qnz7bywIl5RsL9OSUzoeQ cyOusABY9v0TrFr88N79sPS dpZHRoPSIyMCUiIHZhbGlnb f9oyB0y Ii8+BCKvoSV5rSK3pI4pZcN gPuG1YJsoZ226GvGtfHQcKz ikG50jQ1JswYC+EVNiIrk3Q CBzdHls KA6cfMFuJRvaCr5mSMJ5HuW nRvCjZIgkY8OdWSIlpvidjk fbbSM2QCGtFSMbpY51Di3op DogMTBw wJHKvV3aqmybu7tizyfkCvR pZSNvLBv8FIg9OPBjjMznRn YjANF2OyB0HWU8yISxyY5hx Glnbjog kD7hH2OwOVInoxgsOc46eT5 dAsKtYkU7BPzpGpy+VkVJVE zmBVPHIIYWTAe0P3SbQen8Z CBzdHls SB4vhZQjBLmkEf4piMfmlIn pIN3gEXYwcvfiDUUalN4dLG KxhBRyrIgyKL2cRDGbrqftx 250OiAx RJS1FDHbvONwV1NmcE3iFkF qTSVgAICzQ3CdzWCjEPtaV7 96SYaiUnP3FZItrmQjJ7RgJ WFsaWdu KdD1t5Z4Vd8fOn1cWZ3rLIs 6EV36BB05iDKon7M9qDX2Y3 QdGWBnnlanjwselJU5QWGtZ DUwaW47 zWZaWYruKz1uj2R6s274BVX mEPGlhJ47Fc2wvNzxDIYmuN QYlJ4cvzffu1chskdzGnOtQ DAwMDt0 MKn8IDFneIgqFmXmCCM4HpD 0AAA8rMQnuI1kzYkhbqooxR 9wOyc+RBepTSZwlmQ6V8IwQ de6NYUq gMkuLK6znJRiYPvrLo1qgGk tdKxfZK1uCWNthfprQPBtyL 1cFUCvuJMhlVssFP3zQISox hqbs456 GmYyHBD2CVCijIGzZ3RtbD9 wSaRgSFNhEHYwT3ZetPTyTL keA886MXaeAoL6DFCqrpLeE 2FsLWFs lYyrSiE0d8E6Hs1IAD0duQH 3Z1EdPdf3QPHbbRqyBC0xqM DjPGrtQc0hdDzgtOnmUU3zR TBpbjtw FRHhpK5xQMMiqGNqmZcgCP8 nDKVuiryqv308MgRvKLV6ZY HadLFzN6MwyM9mPdFyERDjN BKfA0Uq cGCgHItzY777WYjnDqV4DSS rmkPoA0CnUEGhuRfsRtK8b5 K5Jy6BVAC8ofBqdjh2D8CgH jwvdHI+ KZ96RRTmHR73tWOeaWCtr0b zeTk8SmVpHHQoEKJ1cUtsAE dbo0CePFAfC53afMKsp8D1Q GNvbGxh aOZvAeKuhWS5iG0xLRweyrq ap3npgmgsTfvsq1dlwo31gD 64S70vDJhkUTHcGWUgRJMmH HZhbGln pa8yhH7kEn5+TZYtvFO8wAO 6qV0yBvIhYpE0TOmiR463Fk PlyGOdAcpbd4neg3wthMk9A jIwJSIg keCmzDvoKAU8k2ZhWn73B65 sIHdpZHRoPSIyMCUiIHZhbG nvsn8tyF3yZf6+ZG6lw6viq r25mK51 dHI+JCIcLSD6nFlkBHtyETI fiB2nPRjzEyS9HFLyNbGtsE 16zQBiVCmbJq4peWzapPaqG S6aWCCx tdjrp712DeEuv5bnVHEiaLW qTVteKNJ7M66ch1G7RWIbUD CcHKF8mSU6zE7zpIlbwqksi GVmdDsg baVxnXgsVPbaHDhrP614BXR beKazIjEhmEIcG2drbzADRZ 1lOjwvdGQ+YXRlBZY8gBrbS SdwYWRk tU2iDOZnI5y3XaQsUlK5JCv aR2UrqwN3LYMstNRaFVIhfH QAnI4dxnhpb8lsoitiGfBkI DAwMDt0 ZSx6OCQqzFtuPoIkXVO3EzF 4IFB2pFXkkU2gvDwwnsltkM 9wOyc+RklOOjwvdGQ+PHRkI NC6iZtn MCkoGYFogM2pDKKnG6r8QsA xAuK7BTxbE3RacyM0XEKwqE BnFUXcoEFUeR1gsbkks7itm jogIzAw UJCzFTc8EYp2NVFdyGgtMhW vYAF1UqE9WOG3iCEvzT1dtM brejsyhR6lUhx+TVJOOjwvd GQ+PHRk BZK8kNbmKLugLJGnbI0kMJY cD4a4CeIgPoU3IIukF0Mmgv V9UZQxlIPaOIVtuSLSwY7qe uxtn9qz edbxOgMeWDAeKOp7WWn5ZQE zeSneCpHvSAT3FpN6QCE0rX GeyZ2lsTijblvuqJ7jBtd+U NV6YEU9 VA25RI57A3UaLldsjSYwiOW +PHRhYmxlIHdpZHRoPScxMD LxZaOsgZeuYE8sWm7kIZXiG WNvbGxh cHNlOiBj (more content not included)... [facility] Consent for Treatmenton 09-23 Consent for Treatment [id number]#1.00C D:127 [facility] OT - [place] 10-11-2022 OT - Orders [id number]#1.00C D:127 [facility] PT - [place] 10-11-2022 PT - Orders [id number]#1.00 CD:127 [facility] Comment on above: Other Comment: ot... not pt [employer] 0 08-31-2022 [employer] Documents [id number]#1.00C D:127 [facility] Coding Summary.on 08-30-2022 Coding Summary. CD:[id number] Gh0 bWw+PGhlYWQ+NT1WZZLmK62 pbGStnZ1oK7UYKFoFVxybZT UDZUzEBoOufuUfUO1hhFNqG XJu IC8+DL7aSFIzQdteeCVim5N 9xAJ1G33pkj6rRCxmlMX5JO JsGeDiqitep2igbXg8LXriV mluOyBt BUPioT77KYT4kG66Px65aAN sfTQgq6emaXw2LuKaSYPjRU T3oWebVRyfd2MaEAJpS98zn WFyg2D6 TNIviSyiwBDqCgTnzON2yK8 lBIsurnwhr2tdebiwEli8cl 63zZMae8K3yRS6Y8MfqbG3D GJvbGQg DaeltWNXmU7plgebf4vzxzg dPhGdIZEvRYd0RRe9GVSsrQ nmCnYeHP52OFO5BWRpfnGbI 2FsLWFs cNheFyZ6y7C5Tr4CF5OFKor xP1UNOKMOBMopgID+PC90cj 88J3VbUryrPei9YEDeVOZ4x VA9pN2y QQTmVIlsa9V5cTN1S3QpqwW anq5vk3yyGHDgKLhwS30pzX Fsd0W9GJWrwDT2NHBotPtyU iBzaG93 Oyc+TEIcyXrhw6DbNzlwo0o ym5pxmLe6CdrjAEUqpiNwpX dxRHF7e6TuIi3zWOLoyTY9y PW1hF8a CaReLsF9JUttK602JfWbvFZ yIuwcE25zW5DtvMA+PHRyPj g7HURfdGlmJG6gY2JlGTSsm mctbGVm eAocOD3aHEHdsczmHGPxlB8 iXSPzP9z4CeNqGlA0UBwuT7 CwLZGlmzhsYc10xT6eEqZhY cF6IPrm M5KytuM1DQMpoVPrSIbhMGH 3Q30hq4Y1FCRoTTLnVDP0bV V1sV6paUkwmnmlmNCcbCyif mVydGlj CYfrSRfsA166FMMmeOopKbH vZGluZyBEYXRlOiAgMDMvMD gvMjAyMzwvdGQ+LXUnCQN7o WxlPSAn wUWcTNvbXb5tqAvfyLcsJJ5 iXBTsmexdSLRdwH1oHNBouB OdbVrsEA3kGTUfjlpfp640X iAxMHB0 LJVieYLmH1SmhB8zPdOcTSX pKZGoX3OqhHDjUFxkR587OI zuEjW4IWVwtaUiV9YhNACke WduOiB0 z1X8Lx9Zd1NxaatuV5MsqMS mQuRhJcsvHEs5X3CwRaacyF I+XY66LPUpTN56XHp6CYJ9k WxlPSdi IGXoR7YzhI3zMmKnPEYpYXM kOyc+PHRhYmxlIHdpZHRoPS uwRIOwGmKrvJueIJ2vKn1nZ GVyLWNv yWguxSRcVwEjq5elXLPiTQe dXF3mmQnbQ3KqiKU1NZCbe3 z8Ee66Y06mK5AudSY+PGNvb NA8aCB4 bR7uMkJnCpL0VGruS402XgA dqWWkRwpqn3jtm6zjnXg8Wu N1GPKyctRdmVrwNEO7a6SxQ b59I23n IHdpZHRoPSIxNSUiIHZhbGl ifo4pcT5iVh2+FFVhgCY3rG L0bF5zMfKpMoR8JUxuN777E nRvcCIv Fzqrh1zwj4fppUy5RtRaOLZ alnDbdZrgXIL5g7JsSt05Y0 LbbSqyl5TeKia3jr42pUWyn 0Z7wQM3 U5RbDRJgtdnqiTJtjOauOU7 hNJAulvpcWDDtsA8zONNnV5 t5PrZvOeX2LMduJ9JcfpB6G GJvbGQg WROhyJFFkI7wphgps2vydkc bVyBvFSZbLWs9OMw8CJYejV ynAjFuKQI3OwE2YJT9hSEsv B9gfAay ypbagS0nKpg+HMS8aXWekRY SXJ6zZbpggJT+CHIlMUB0lY dzZTgyKUBkbN2pUMSmM7p8H iAwLjA1 TCwvE9MhiuG2KFHlsGKnUCZ gsPBUmQ5ubjevk5rfkvriCx XdXAErTRs5ZKs7EYWqoPiwV iBsZWZ0 YtD1QSF9sOAisL3qsVbwkdx tqI8zJin+ZmrlnTttVTV0KT v7T3HrMqc7STMebLnoZW0ii GFkZGlu Yo3dkVwtkJebFM9hACSsfwq ab867BuIxp0anDBRfcNRmNP soZGL6X30hu2A8IXAeEWXrP AC9gNN3 fH2lfImoyukecXJyrGqjllX diXweOXzjLPeqI374ZLNmmD ktUlKcGHj1U6SvEqo9ZXLxh PgvOZ1x bKEaNKdvXg4kuZkusNdtZM3 fABWsgahmm691MtVhs9axOB YfyAMgSVcxQLZ4B78yp9W6W CMwMDAw LAE2sOP5jY3smNliozddsXM mdDsgdmVydGljYWwtYWxpZ2 01ALSaqVydAjLbbMq6Y4IsK nx5QAUg zLcfRM0vjYAuCZpbQo8dqUg obVhsYL4sXXDuogasb076Jw Yaf4ceCREuqVXlTTjzMRC8U 21pa1F9 RJGzYXVbNFT4xFH9wC4evKz nbjogbGVmdDsgdmVydGljYW mzECdeQ916MRGklRckZeHgy GllbnQg SSunETa1C8VnBaxrqZM+PC9 6XJNwKQ38gYXpzEHzd1wkgC c4GsGfUARiTKT9rEkhEXovx 3JkZXIt N39xdLZha5M7SKAndDrcpFN uZuBsdJY4qB4eRFqmztffs6 wfeouhUpozg0lmtk15cC70B 29sIHdp ZHRoPSIzMCUiIHZhbGlnbj0 sgW3fVc0+WTTkmZB3sMG4lI 5rIYWtQmO2IVceX417XgJnt CIvPjxj c0bol8nezYk3SxN4NJQthtF dpHxlQEB1n4CkUt04I87gDV dpZHRoPSIyMCUiIHZhbGlnb v6lgZ0y Ii8+YDOqiRR2yBM5hN4tWkV pSmD2ZJbtN744GlVkbRZhXg boO80bK1UaqQJ+RSPyGha6F CBzdHls EZ4xyCJjDExvRz2bQAO8PqK aQxChDAagZ6MfJVRccomfvs hzvHI2URRwNXHryZ87Cs9jb DogMTBw uBEIaN1sywdqs2jinyimCcA kXALwOPq0XOn1AHAhsZacFp RtKCK0SkG2BQV4rFSoiV6qd Glnbjog zU3lB2LdXILygadfYr63tT1 cLqHaHsW2IDlqItb+VkVJVE bdPTQCRGPREGi4S9WbBpj5Q CBzdHls PI5hvGMuRUkfVv2zxYpftIv jLY5hQSUqlbojAZJmbA4vCH VmfGEjgMdjPQ4rNBYlrwuto 250OiAx TQU5KDHjiGEnM5GlyG8eKxN sPGTjWUTyR1YuqLPkMBcpL3 91CLheLuB1XTFucmJxX1XcE WFsaWdu ZlA4q3S0Ft3tHu3aUI8oDTl 4JU99PN44sAEpq1U1rWJ9D0 SiWFCgxriybvyzwVG6POYbY DUwaW47 kBDmPVprQz5ok8E4m866DPP rUHNseD03Fp9ynUouOFCakD JYxC4jtrqhf2qdxrwgDgLzX DAwMDt0 FOl6VQOhhKxaKvQlLGB7ApO 6MLH6oAAypV1kxYulojsxxX 9wOyc+ZTwdQLMgmyE8O4HgW oa5ILMs gHpwVB6wnRFcRZsdLt9duXi ynErcXO1aKOZjayxmZVXjgA 2oZUJiyUZpyWjbHK9jNFAzi blcq645 FyFzUBI1RWAmmVOjB9EasA1 jDkVaWLDsGYBqJ2CtlCZcUK kjW974GSxmFhT6XODzhxGjU 2FsLWFs tYrpRkP7c8V1Eg3QKX5xhLD 0R8IqZll1EKQgpNltAC8luQ HmAGejRo0yqVocxFajWK0wN TBpbjtw TEWazU3zDTTkzZRtuRmwQP9 rRVAypozie203ZwFoDOV2YD EisOEqZ6DviF2gKzDtPQBaX KYxX8Kz cYWsHDojR949BVtbZdQ7OGU vaoRqW5MsYLWlwHurOiD7h7 Z6Qd5FeDRvGQVsBV74NR79W W23F0Yt PjwvdGFibGU+PHRhYmxlIHd pZHRoPScxMDAlJyBzdHlsZT 2zTe8sFAYlZTEmsHbdaUBqT lNzk7tj SOGvVTfsXW8hwPtyQ0HmeZE 4XOIjs1a6Vh20Z68fW0KurX A+GHYdiDF5mVC6vI9eAeYuY sE5IUqs J591NrAzyUQkGklzw8gfj8a mfVo5HrLaWSSzmxYcpVwySC T6l2IdBf43H09jLIsmDMYtS SIyMCUi VVVwrBvgld5jtX8gSp7+PGN adIN5gKC6uD8cWlTuPgT4SP wtM447PlCyuCQiEqjpH96uP 3JvdXA+ QXPdFiz0RXFczRhwDJ9ecPN rOJwpJa8pFHX8JcTmUyJoHX jsV4AiRZOspcqkwrrbmMQ0M DAuMDUw wR35Mt3fpFkyGy0nHBQnBHV 9HUJreGMqI3NgxT1hZhCmGL XqBOHtW7BaoYGmFSprF559N GxlZnQ7 SZMpgzSeH2WhXBLecYdjCqT 2x4S8Bh2UpStgfNRvEX6yXb EhYTr2Z6XtUyp3LWSruWfaK C4asNEb JImmZr3fpWzeyFtfOB8wFLJ hdqiwp507ZxCje6wzINLtkL GwANzwLJP2E43kz7Z4MXAxG DAwMDA7 hXK8vP4vlAhuxitipZEloHb hqoDkpCgeCPyoOCgmJ789XV BnuYoyDeEDBth0L1WeGnc8Y CBzdHls PO2uvXEzTGltXd1gwYkbeYp gWR7dCKRuymybg942PmDwl2 kyHWGnlAFjGJolPGU7O71cu 5W6GDLv IYRiSON4mZK2kY2wxDbbcls gbGVmdDsgdmVydGljYWwtYW gkB774WIOfsQqbTn3EWlw1M 4LrFkh1 LACkzPopIU8maISkZHdiTr0 ngHadrLfmUA4nGLYxcycod9 97EvVgs7zsZYPowJRaXIykH QY5F37u k4Y9RWBtFNYyOEM2rKT9gF0 hbGlnbjogbGVmdDsgdmVydG ldAPmnGZylY480YXHbiCofV lBheWVy OjwvdGQ+VJ82bm65A3SbAtp sXhh3XVCdYDI0jZZ4kJ8vDP DoPHrun9I0zWC2W3BixhZcl e3vx2kb YXBz (more content not included)... Normal [facility] Physician Orderon 08-30-2022 Physician Order [id number]#1.00C D:127 Normal [facility] Coding Summary.on 08-21-2022 Coding Summary. CD:[id number] Gh0 bWw+PGhlYWQ+TO8MDKHvX73 vlIBbcC5WN0kGOP0PNUAQAS QDMZ8EBC4ycXD9PEsjT4Gfm iAv WcnivKThWB05PLd6PTM3yXy yLKcupZ9leGIkT3g2MwTwTQ 52tL89XEshKSJcSwO7JpVqq jsgbWFy K8sfGnYdmAMbOkt+PHRhYmx lIHdpZHRoPScxMDAlJyBzdH ifSQ0cNt6uYPHmCCJicExcg HNlOiBj b7wkACXqRYsuLB1cyTfgB2I jnRG4PJIry8u6Xo01xWE+PH NsAJL5rKcrUCcyh762MvHks 7ocGVG3 vVYsABymPZI4X08cb9B5SUH fKAInVWZ5wDC4vU6qyBdlat kqK4UyrBZpVdQ2PYZ7gUZxo P4vdYuj eydodP4wEvb+I73FYT2HOJJ LFA8SBro8L8VbVybusAP+PC 46GWUaNH46fOKybYAqo4jpa Uk6AlQa AJHaRES6rYepJOamp7NgDZV wZ64smRAkh9W9DMHfxMngzP HuQyYlkLH1cM6uVNkgmxpmo 2hvdzsn Syxaq5pvey38mT65Y72yOKl oEJJyWGP1NLLsXIMwwNamvc 0toP8eIt5+FZgcc5yfm6jvs Il7ZqQp OFJwyqKirUfnUUZ7x8FjHb1 7U3SjiRqnb8OsAiq8qz98cL Ppu7M9fCJ6EHqvWRPnfJ7sQ WxlZnQ6 SKBbEyPuyL12kXLqNYyvMg6 wlQwfkNipET4iFKMmgcksKH NauM2vZJEjmNKkmLxdVN2bG TBpbjtm r765ApOyQFY5UOCrwRReV6M gxC2pMyKuHPJeUJEoY6FkfH SpOLfsN765CVqaRsY6NOYfz oHxO7Cx EBIrgPtiZrV2y0D6Ig4Xc0H iamugXJB1SCraXMCpLsQ5Of ZyOpQ3D1YkLps6OWMmsQytX S1uU8Fz AEXqddwbbyyurPG2EZEpMXV ggD58iVUsCDofCs4pa5B7f4 05SDPuSCFgvQ25Ad7dwSkdT TBwdCBU lV1hxtbtx1diwaerYvLyQZE aRQo6FDc4CLLvkOyhWqFaJO C1GyX7HSI0jFQwzE2iwXhiy bapqA2m Oyc+K87taQ2vDSO1RYH1mfr bTJEgdsTbDG96EJ87Z7RnSc wvdGFibGU+PGRpdiBzdHlsZ A4mKdFn n7rma1HmGSuwE0VuHIYxPVi bZfn2SOHrWCW2oIR1jP8jAT NtIGrwr0I8aBO6B9YkrwHph h3mb6op XZVkDSjkH33onAXat1G8IEG gwGZ4VVChbQstAySejD79Mj c+UWYvePwum9IjRpzpb8mqg 3yfeEm2 MpCtTAVdxxIlwWjzFKO8z5O bFr80W56eVDwyXARnUPRuUS TrKOWzmFetdc4heH4gLz6+P GNvbCB3 kMJ5bY2kNBWiOcZ1CPjmR07 8CyXmgEGpUhjxb2zbk2smgG v0IbSsRERvjuDzrEbsAIM4x 7YzBi31 H12oRYoaZAHpNRYxJBMxHIG scDrqmh9xgM5nZo2+PC9jb2 fbfi89aJ93zEH+JOCuWDY9t WxlPSdw BJBqnD0lSGroHmF7UCVvWmJ osX13wQSbEKdiPj9gwRdthP uyII6bTVNsrvjcf106UeWvc 2xkIDEw iIZqKHjfNTQ3W47xm6H3MHJ tFTTxVOW9dHQ0mB1acJegae ogbGVmdDsgdmVydGljYWwtY LpnQ893 IHRvcDsnPlBhdGllbnQgTmF iGDc1A8UoSjk7ZWXupSqxIR 6hhMHaGRhoBi0qyLbjdJcbS R4hJBIr zytqa190VnBns3dpYRYsrBC oRLxqTKE0E54la1R8YPCbYI AjLVX1jJH2kK3xyDgmpxzhb GVmdDsg anRoxMaiMMpjZGdvR391RJM lyQamXqDiebJkXXOmyBH2UK 53LZ81eTTpw4L0wXK6F9JyT GRpbmct xhcnjDY4FXLgAXXitW21Xe4 xrBykOs6tJYAoSCL5OIMfnQ JnG1GncJ8pRmYuAZLgBXJdX 3RleHQt YOpbB273DWqlLzV0RKZwotH kI0BiPSKurJlnRxL2a4O0Wv 5JH8F4BW97SB12fZQzx1N9t YF8T7Rs EORfqpiakdniqVG5QENaMXZ zeF94Rq8dxVexDi4uMVRdGN F7CSBzzEJmF1NehV8fAcAxT DAwMDAw X2TkqJSwSJkfW827NFzyZuK 9WTKdsbPvU1YxHTDxuMvdIc J2g8C5Zy3QUQw9SM34RB22p XNai2L7 oLA5X6ExDQEvdwqzvhqbwWS 3HCNeFVNntV71Rv0zrQomVu 6eCMNtYTO0CREhvEPzN5Bya E2gWjNj ABRlRZEaA6JriRKqEEulM11 0GLdbFlA0VBQrllXoF3OzKO QmmQygTtV7u5T4Ks1MCWNsH G84IDJ4 mQC5TJ66WL53E5BtQgwrgXW ibGU+PHRhYmxlIHdpZHRoPS iiPTJkQzXwnKrrWF4iLx8sA GVyLWNv uEfzjJZcMqDvp5arQPLgRZa yPA5afRxoZ6ZtlPK2LOQec3 u4Lm06W47nW9DmfWV+PGNvb QM0uIW8 jT3mNlMeMfT6VAcpM714HcQ lsMXdUucpg4vnl3capLm9Vi M4IKJarrNggXbxUAC9u2SjI g51D97i IHdpZHRoPSIxNSUiIHZhbGl dhv4erS5gVs4+FKIziZB1jO K3iU2pHnJhRjB1BCevK093F nRvcCIv Viorj0dra2aaaMs5XlLlTSA munDhlQvwLNZ0t6CvZl06Z3 UbwGxby9HbHto1ve19jVBrb 3F4vZB4 R0UtCKCjarkgaKXseBhiOV7 rNYHhkaeeJMQwcG9eDZNlO0 o6DvCqTwZ5ZQqoN7UwlcT7R DEwcHQg ERxcQUH5D88bz5P0FQBcHNY bVKI6bKR4mI8ymPvikxbquG VmdDsgdmVydGljYWwtYWxpZ 246IHRv pVwsYSDztO0qYXHqeVHxsMi hXU0rLSMuccvdCfIWDHHFVH YYEjzWTUMAYC32YU71qPUgu 9C3yCN6 K0VrOORrvemeejtelRW1LDL oJUWslT76tFRaWJdoZu1oi2 U7d410QMWwBTZqkO49Qz8mn DogMTBw aJGGcA8iubhjp1vnkqcmYzB uVTIuLJh4YWf1OWLowGgwHu GtYJD0BfT9IPH0dRYjdM3yl Glnbjog cD1rAxd+KZRoOBouMXh4Urq vdGQ+JTHbYTM0bXkqGVwzTJ JluT9sRSWzD1g5LjRhUvE5E RttG3Yv BAFrwlnzQl09zI4tQdXtRrM 4XHdaQ5KjdtY9BPMbnOWaXE sgSIT9Y31ui4F1ZFJcOLQuP YY7xGO1 jO2rsAdrvnkmlYAwuJidiyB yvJzbEMbyPAqpV373MOFvtK ihPoZ0PBsdCQTqDB28PU03k MEkh1C7 lSE5Z3ReRXPtqgjdsdbuiTN 1JSEuBZUqaY25vEZjZWrtSl 6iq1S1g135AGLrNXZzjU65P v9stXvr ADXtpXLUmW4lubmyy9kdxsc iHeWaCLSlRQh3AVp0MCIivS ltIsCuTYF6WgT0LTB7rMKhw W3ghBad tcwfaC3pGar+RmVtYWxlPC9 4HW15pZLjd7Q6tTL7L9IuBU HruqjfhvrnzMK3YSKtUEWns E14uXYd VAkcSn9nu6Y1p071ZXFgPMT vfZ08Ev6jfSfgJLWjfDVTxS 7zgojry2jedgwuJlSnPTIbO Td7EUu6 DDZvtFsgLsLkPHI2SqN0NSM 8mAJxnT9cxGtwdplezX9hWs c+IR1ziDvuoE8hmV6XVF3pK ERheSBT oAJtCJQ3XJ60OE31K7AxEeg vdGFibGU+PHRhYmxlIHdpZH LmOSolEXTiJyRruJxcMK6pD k2hCMBh BXZqaVmvbPWhFtLgz3ycUML wPPbuJY3zySmuB5MhdIS5EN Zpo8f0Kn96Q04xF8RkrHF+P GNvbCB3 eNX5mD5cIlZrNoP9TNmfL76 1YmItsVIbUfxcd1iao3jfmS l4XuKjYZCgqxFbeUmwURE4z 2ShZw10 Y76vUIzyOFHrRQHyLRYoWEH baVssby9esU3oUm6+PGNvbC C0jWF1sJ7gKtZfRdP4XFhdK 249InRv lOCyFnzuC45mW0WpiDM+PHR vXnv7GSMckWgaNO9inFMdUW laIb2jUWQ6BuYoWeNbQZnvB 3BhZGRp yracgqjheWL6JLYaTQIurH5 4Kg1hxIbrOs6bWEHhVCP3IW PwhHQwB3ClrM9jYhFzGEFaI BQqN3Eb uGGyDKnkX628OKuyQoZ3WQY petQjF3MnHMPmvXaaEjD9m5 Z5Xl6HbTgnrJYjFU7kVbNwB Yy6Q7Jn Jux8DJLitSznUB5veUMuZLc mHw0wdBsugHaoVK4xWWQtms mna103YgYrg9mwTBOlpARsO GltZXM7 P15iu0A8RPSoNUUfZDB1dSR 6wU6vuHmvhzzoeZWuhZxpmx HopXgiWAsjKFhlT813JQSat DsnPkZJ Pxa1D4QlUkw3IEJroCgiXB2 ugXJaHFwqPq4aqKqmuRguRY 4lDOVrcagow600HeSfu2qgJ DEwcHQg DJgqSDT8E45gh6V8EBXsRZL yJUY5qJQ0nX4apFdoeokjwS VmdDsgdmVydGljYWwtYWxpZ 246IHRv gXgySh8DFky7Y8OeHbl5MTQ oeHxoLQ0thLTjZTdeEn2htS slbLqcCS5mUKQxzoxnz366K qAni2fr FLYetUYgSDxrQEE9P74sf2K 4VKBnVUQwVJT8xBT6yO5rmC lnbjogbGVmdDsgdmVydGljY WwtYWxp I460VIMbwFdfZbDgyWHeRzk vdGQ+AE03tj13V4PlOrqmNb b0YPZnEMC5kGI1zQ4wCRIiK Gklr3K0 bGU9 (more content not included)... Normal [facility] Consent for Anesthesiaon Consent for Anesthesia [id number]#1.00 CD:127 Normal [facility] Discharge Instructionson Discharge Instructions [id number]#1.00 CD:127 Normal [facility] IntraOperative Documentson 0 08-21-2022 IntraOperative Documents [id number]#1.00 CD:127 Normal [facility] IntraOperative Documents [id number]#1.00 CD:127 [facility] Main OR Intraoperative Recor don 08-21-2022 Main OR Intraoperative Record IntraOp Document Type FT Summary Primary Physician: Reza Proctor DO Finalized Date/Time: 08/21/22 12:38:52 Pt. Name: POORNIMA BARKER./Sex: 1975 Female Med Rec #: [id number] Physician: Reza Proctor DO Financial #: [id number] Pt. Type: A Room/Bed: [place] [address] Admit/Disch: 08/18/22 06:24:59 - 08/18/22 14:30:00 Institution: Case Times FT Entry 1 Patient Times In Room 08/18/22 09:53:00 Out Room 08/18/22 11:01:00 Procedure Times Start 08/18/22 10:18:00 Stop 08/18/22 10:57:00 Anesthesia Times Start 08/18/22 09:53:00 Stop 08/18/22 11:01:00 Block Timeout w08/18/22 08:10:00 Anesthesia Last Modified By: Tuyet Morel 08/18/22 11:05:44 General Comments: BLOCK TIME OUT AT 0810 WITH AND YANNICK Franco RN ASSISTING, HEART RATE 77 AND SPO2 100% ON ROOM AIR, PATIENT TOLERATED WELL.KSAYLER,RN. 08/21/22 Chart opened to review and send charges [facility] CSFA Case Attendance FT Entry 1 Entry 2 Entry 3 Case Attendee Danyel HARVEY, David Proctor DO, Erin Travis CST Role Performed Anesthesiologist of Surgeon - Primary HOUSE MOTHER/SA Record Time In 08/18/22 09:53:00 08/18/22 09:53:00 08/18/22 09:53:00 Time Out 08/18/22 11:01:00 08/18/22 11:01:00 08/18/22 11:01:00 Procedure ULNAR NERVE ULNAR NERVE ULNAR NERVE TRANSPOSITION(Left) TRANSPOSITION(Left) TRANSPOSITION(Left) Comments Last Modified By: Tuyet Morel Kelsie E Sayler, Kelsie E 08/18/22 11:05:46 08/18/22 11:05:46 08/18/22 11:05:46 Entry 4 Entry 5 Case Attendee Tuyet Morel Jessica D Role Performed Database Marketing Specialist - Primary Scrub - Primary Time In 08/18/22 09:53:00 08/18/22 09:53:00 Time Out 08/18/22 11:01:00 08/18/22 11:01:00 Procedure ULNAR NERVE ULNAR NERVE TRANSPOSITION(Left) TRANSPOSITION(Left) Comments Last Modified By: Tuyet Morel Kelsie E 08/18/22 11:05:46 08/18/22 11:05:46 General Comments: ANUSHA HANKS, SALUD STUDENT, SCRUBBED IN AND IN ATTENDANCE.BROOKE BRIAN. [...] and tissue Entry 1 Skin Integrity Intact, [place], Warm, and Skin Abnormality No D (more content not included)... Normal [facility] Preoperative Documentson Preoperative Documents [id number]#1.00 CD:127 Normal [facility] Consent for Treatmenton 07-27 Consent for Treatment [id number]#1.00C D:127 Normal [facility] H&P Updateon 08-18-2022 H&P Update [id number]#1.00C D:127 Normal [facility] Inpatient Patient Summaryon 08-18-2022 Inpatient Patient Summary [place] [id number] [facility] Clinical Discharge Instructions PERSON INFORMATION Name: POORNIMA BARKER [facility]#:[id number] PHYSICIANS Admitting Physician: Reza Proctor DO Attending Physician: Reza Proctor DO PCP: DINESH BOBO MD Discharge Diagnosis: Comment: PATIENT EDUCATION INFORMATION Instructions: Ric Proctor - Upper Extremity Fracture Surgery (Custom); Post Op Patient Instructions - FT (Custom) Medication Leaflets: Follow up: MEDICATION LIST [facility] [address], [place] [id number], [phone] acetaminophen-hydrocodo ne ([place] 325 mg-5 mg oral tablet) 1-2 tab(s) Oral q4hr; as needed for pain. Refills: 0. docusate (Colace 100 mg Cap) 1 Capsules By Mouth 2 times a day as needed for constipation. Refills: 0. Medications to Continue Taking That Have Changed [facility] [address], [place] [id number], [phone] START: ibuprofen (ibuprofen 600 mg Tab) 1 Tablets By Mouth every 8 hours as needed as needed for pain. with food or milk. Refills: 0. Medications to Continue with No Changes Other Medications cranberry (cranberry oral capsule) esomeprazole (Nexium 40 mg Cap-EC) 1 Capsules By Mouth every day. Comment: Normal [facility] Main OR PACU I Recordon 07-27 Main OR PACU I Record PACU Phase I Docum ent Type FT Summary Primary Physician: Reza Proctor DO Finalized Date/Time: 08/18/22 13:17:16 Pt. Name: POORNIMA BARKER /Sex: 1975 Female Med Rec #: [id number] Physician: Reza Proctor DO Financial #: [id number] Pt. Type: A Room/Bed: [place] [address] Admit/Disch: 08/18/22 06:24:59 - Institution: Case Times [...] By: Luz Frederick RN 08/18/22 13:17 Normal [facility] Main OR PACU II Recordon Main OR PACU II Record PACU Phase II Doc ument Type FT Summary Primary Physician: Reza Proctor DO Finalized Date/Time: 08/18/22 14:50:45 Pt. Name: POORNIMA BARKER/Sex: 1975 Female Med Rec #: [id number] Physician: Reza Proctor DO Financial #: [id number] Pt. Type: A Room/Bed: [place] [address] Admit/Disch: 08/18/22 06:24:59 - Institution: Case Times [...] Signed By: Dylan Mcneil 08/18/22 14:50 Normal [facility] Main OR Preoperative Recordo n 08-18-2022 Main OR Preoperative Record PreOp Document Type FT Summary Primary Physician: Reza Proctor DO Finalized Date/Time: 08/18/22 10:25:18 Pt. Name: POORNIMA BARKER/Sex: 1975 Female Med Rec #: [id number] Physician: Reza Proctor DO Financial #: [id number] Pt. Type: Room/Bed: [place] [address] Admit/Disch: 08/18/22 06:24:59 - Institution: Case Times [...] Signed By: Tuyet Morel 08/18/22 10:25 Normal [facility] Monitor Recordon 08-18-2022 Monitor Record [id number]#1.00 CD:127 Normal [facility] Monitor Record [id number]#1.00 CD:127 Normal [facility] Operative Reporton Operative Report Patient: CHANDA BARKER Age: 47 years Sex: Female : 1975 Associated Diagnoses: None Author: Reza Proctor DO DATE OF SURGERY: 08/18/2022 SURGEON: Reza Proctor D.O. CRIB CLERK: Erin Palacios CFA PREOPERATIVE DIAGNOSIS: Chronic extensor tendinosis, left elbow POSTOPERATIVE DIAGNOSIS: Chronic extensor tendinosis, left elbow PROCEDURE: 1. Open common extensor tendon debridement, left elbow 2. Application of short arm volar fiberglass splint ANESTHESIA: General with regional block ANESTHESIOLOGIST: David Montaño MD IMPLANTS: Arthrex 3.0 mm knotless suture tack anchor OPERATIVE INDICATIONS: Poornima is a 47-year-old beuzn-vclf-ansnkred female who has had persistent pain over [...] in the common extensor in a running [id number]-[id number]. The distal aspect of the suture was [...] was clean and elective. Reza Proctor D.O. [facility] Comment on above: Result Comment: Elec tronically Signed By: Reza Proctor DO\.br\Date and Time Signed: 08/18/22 15:01 EST Operative Report Patient: CHANDA BARKER Age: 47 years Sex: Female : 1975 Associated Diagnoses: None Author: Davdi Mnotaño MD Procedure Nerve Block Block Type: Interscalene [...] Using maximal sterile barrier technique per current [facility] guidelines including hand hygeine, Guidance (Ultrasound used [...] patient tolerated the procedure as expected. Normal [facility] Comment on above: Result Comment: Elec tronically Signed By: Danyel HARVEY, David Carrillo\.br\Date and Time Signed: 08/18/22 08:24 EST Outpatient Surgery Discharge Instructionon 08-18-2022 Outpatient Surgery Discharge Instruction [address] [address] Patient Discharge Instructions PERSON INFORMATION [...] Information: You may receive a survey from [employer] asking you to rate your care experience. Your feedback is important and will help us understand what we do well and how we can improve the quality of care we provide to you, your loved ones and our community. It?s an honor to serve you. Thank you for choosing [facility] HERE ARE THE MEDICATION CHANGES THAT OCCURRED DURING YOUR HOSPITAL STAY [facility] [address] [facility], [place] [id number], [phone] acetaminophen-hydrocodo ne ([place] 325 mg-5 mg oral tablet) 1-2 tab(s) Oral q4hr; as needed for pain. Refills: 0. docusate (Colace 100 mg Cap) 1 Capsules By Mouth 2 times a day as needed for constipation. Refills: 0. Medications to Continue Taking That Have Changed [facility] [address] [facility] [place], [place] [phone], [phone] START: ibuprofen (ibuprofen 600 mg Tab) 1 Tablets By Mouth every 8 hours as needed as needed for pain. with food or milk. Refills: 0. Medications to Continue with No Changes Other Medications cranberry (cranberry oral capsule) esomeprazole (Nexium 40 mg Cap-EC) 1 Capsules By Mouth every day. 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 It is therefore advised not to drive until after your first office visit following surgery. Do not drive while taking pain medication. ____ Reza Proctor, DO [facility] [address] [place], [place] [address] Reviewed: (Inserted I (more content not included)... 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 It is therefore advised not to drive until after your first office visit following surgery. Do not drive while taking pain medication. ____ Reza Proctor, DO [facility] [address] [place] [address] Reviewed: [facility] Progress Note-Physicianon Progress Note-Physician Patient: POORNIMA BARKER Age: 47 years Sex: Female : 1975 Associated Diagnoses: None Author: David Montaño MD Postoperative Information Postoperative disposition: Postoperative disposition: To PACU. Optimetrix number: Optimetrix number [id number]. Anesthetic utilized: General. Regional: adductor canal block. Health Status Problem list: All Problems Acid reflux / SNOMED CT 716147882 / Confirmed Endometriosis / SNOMED CT 444800108 / Confirmed History of seizures / SNOMED CT 9181067066 / Confirmed Migraines / SNOMED CT 20943105 / Confirmed Pseudotumor cerebri / SNOMED CT 422925452 / Confirmed Smoker / SNOMED CT 357101942 / Confirmed Added secondary to documentation in [...] Ambulatory Surgery Unit, and To home ). [facility] Comment on above: Result Comment: Elec [...] All Problems Acid reflux / SNOMED CT 314773948 / Confirmed Endometriosis / SNOMED CT 845388708 / Confirmed History of seizures / SNOMED CT 8981530987 / Confirmed Migraines / SNOMED CT 84783015 / Confirmed Pseudotumor cerebri / SNOMED CT 079140087 / Confirmed Smoker / SNOMED CT 721318996 / Confirmed Added secondary to documentation in Social History., Active Problems (6) Acid reflux Endometriosis History of seizures Migraines Pseudotumor cerebri Smoker Histories Past Medical History: No active or resolved past medical history items have been selected or recorded. Family History: No family history items have been selected or recorded. Procedure history: Cholecystectomy (68818924). History of total hysterectomy (8863293304). Excision of cyst on neck (4793091261). Excision of cyst bilat ovaries (4778977559). Colonoscopy (196161258). Procedure on brain ventricular shunt (3395291711). Social History Social & Psychosocial Habits Alcohol [...] 6:36 EST Height (more content not included)... [facility] Comment on above: Result Comment: Elec tronically Signed By: Danyel HARVEY, David Carrillo\.br\Date and Time Signed: 08/18/22 06:50 EST Consent for Procedure/Surger yon 08-17-2022 Consent for Procedure/Surgery [id number] D:127 [facility] Physician Orderon 08-16-2022 Physician Order [id number] 0CD:127 [facility] BUNon 08-08-2022 Urea nitrogen [Mass/Vol] 10 mg/dL Normal 5-21 [facility] Comment on above: Performed By: #### 2 354326, 3186657, 70526459, 2238478, 9099554, 1359308 ####[facility] [address] [place] [address] CBC w/Indiceson 08-08-2022 Erythrocyte distribution width (RBC) [Ratio] 14.8 % High 10.9-14.2 [facility] Comment on above: Performed By: #### 2 345676, 7982952, 37108403, 6552729, 9753731, 9970725 ####[address] [place] [address] Hematocrit (Bld) [Volume fraction] 38.8 % Normal 34.0-46.0 [facility] Comment on above: Performed By: #### 2 543840, 5179366, 78172161, 4889515, 6764609, 7141391 ####[facility] [address] [place] [address] Hemoglobin (Bld) [Mass/Vol] 12.9 g/dL Normal 12.0-16.0 [facility] Comment on above: Performed By: #### 2 761274, 3125778, 28337452, 0387915, 8707704, 7165132 ####[facility] [address] [place] [address] MCH (RBC) [Entitic mass] 29.3 pg Normal 27.0-34.0 [facility] Comment on above: Performed By: #### 2 323957, 1601853, 07082086, 2104870, 6466989, 5263854 ####[facility] [address] [place] [address] MCHC (RBC) [Mass/Vol] 33.4 g/dL Normal 31.4-36.0 [facility] Comment on above: Performed By: #### 2 926052, 9323061, 05809924, 6716055, 0690295, 3696624 ####[facility] [address] [place] [address] MCV (RBC) [Entitic vol] 87.7 fL Normal 80.0-100.0 [facility] Comment on above: Performed By: #### 2 438652, 7205329, 23500256, 4503096, 1651523, 2164467 ####[facility] [address] [place] [address] Platelet mean volume (Bld) [Entitic vol] 8.3 fL Normal 6.4-10.8 [facility] Comment on above: Performed By: #### 2 544090, 7606056, 65616215, 7010771, 8236626, 1987658 ####[address] [place] [address] Platelets (Bld) [#/Vol] 278.0 E9/L Normal 150.0-500.0 [facility] Comment on above: Performed By: #### 2 053846, 6266206, 28715085, 5823581, 3066901, 9262460 ####[address] [place] [address] RBC (Bld) [#/Vol] 4.4 E12/L Normal 4.3-5.9 [facility] Comment on above: Performed By: #### 2 919447, 0792138, 97070144, 7821231, 6478861, 7420904 ####[address] [place] [address] WBC corrected for nucl RBC Auto (Bld) [#/Vol] 10.7 E9/L Normal 4.0-11.0 [facility] Comment on above: Performed By: #### 2 662882, 4716478, 21587525, 6371165, 8528612, 0130814 ####[address] [place] [address] CHEMISTRYOrdered By: SYSTEM SYSTEM on 08-08-2022 Anion gap [Moles/Vol] 12 mmol/L Normal 6 - 16 mEq/L F [facility] Remisol Chloride [Moles/Vol] 108 mmol/L Normal 101 - 1 11 mmol/L [facility] Remisol CO2 [Moles/Vol] 26 mmol/L Normal 21 - 31 mmol/L [facility] Remisol Creatinine [Mass/Vol] 0.9 mg/dL Normal 0.5 - 1.3 mg/dL [facility] Remisol GFR/1.73 sq M.predicted among blacks MDRD (S/P/Bld) [Vol rate/Area] mL/min/1.73 m2 Normal >=59mL/min/1 .73 m2 [facility] Chem S GFR/1.73 sq M.predicted among non-blacks MDRD (S/P/Bld) [Vol rate/Area] mL/min/1.73 m2 Normal >=59mL/min/1 .73 m2 [facility] Chem S Glucose [Mass/Vol] 96 mg/dL Normal 55 - 199 mg/dL [facility] Remisol Potassium [Moles/Vol] 3.6 mmol/L Normal 3.5 - 5.3 mmol/L [facility] Remisol Sodium [Moles/Vol] 142 mmol/L Normal 135 - 145 mmol/L [facility] Remisol Urea nitrogen [Mass/Vol] 10 mg/dL Normal 5 - 21 mg/dL [facility] Remisol Consent for Treatmenton 07-26 Consent for Treatment [id number] D:127 Normal [facility] Creatinineon 08-08-2022 Creatinine [Mass/Vol] 0.9 mg/dL Normal 0.5-1.3 [facility] Comment on above: Performed By: #### 2 137476, 9942079, 77216503, 8577663, 7414230, 6450673 ####[facility] [address] [place] [address] Glucoseon 08-08-2022 Glucose [Mass/Vol] 96 mg/dL Normal 55-199 [facility] Comment on above: Performed By: #### 2 445418, 1936944, 22266336, 3974357, 2423655, 4164959 ####[facility] [address] [place] [address] HEMATOLOGYOrdered By: Carlos Humphrey on 08-08-2022 Erythrocyte [...] 10.7 E9/L Normal 4.0 - 11.0 E9/L FT HemeAutoSS Lyteson 08-08-2022 Anion gap [Moles/Vol] 12 mmol/L Normal 6-16 [facility] Comment on above: Performed By: #### 2 140057, 9814869, 40225612, 6215848, 7063042, 5942136 ####[facility] [address] [place] [address] Chloride [Moles/Vol] 108 mmol/L Normal 101-111 [facility] Comment on above: Performed By: #### 2 812474, 8678770, 03948764, 8146315, 8586919, 8220918 ####[facility] [address] [place] [address] CO2 [Moles/Vol] 26 mmol/L Normal 21-31 [facility] Comment on above: Performed By: #### 2 165221, 6281024, 25479029, 5645405, 7617975, 8184649 ####[facility] [address] [place] [address] Potassium [Moles/Vol] 3.6 mmol/L Normal 3.5-5.3 [facility] Comment on above: Performed By: #### 2 280472, 2772675, 65707920, 5893451, 7461358, 7287140 ####[facility] [address] [place] [address] Sodium [Moles/Vol] 142 mmol/L Normal 135-145 [facility] Comment on above: Performed By: #### 2 534120, 5162262, 99510075, 9239808, 8867560, 0084829 ####[facility] [address] [place] [address] XR Chest 2 Viewson 3 XR Chest [...] MD, V. Transcribed by: CANDELARIA Technologist: ALEYDA Aguilar [facility] eGFRon 08-08-2022 GFR/1.73 sq M.predicted among blacks MDRD (S/P/Bld) [Vol rate/Area] mL/min/{1.73_m2} Normal >=59 [facility] Comment on above: Order Comment: Order added by Discern Expert. Result Comment: eGFR is race adjusted. AA=. Performed By: #### 2 560930, 9463324, 52538997, 9343105, 4448295, 6449118 ####[facility] [address] [place] [address] GFR/1.73 sq M.predicted among non-blacks MDRD (S/P/Bld) [Vol rate/Area] mL/min/{1.73_m2} Normal >=59 [facility] Comment on above: Order Comment: Order added by Discern Expert. Result Comment: Petrophysical Engineer reginaldo kidney disease could be indicated at eGFR's of less than 60 mL/min/1.73m2. Kidney failure is indicated at less than 15 mL/min/1.73m2. Performed By: #### 2 673309, 9000269, 20334796, 1096363, 5101499, 6245269 ####[facility] [address] [place] [address] CT HEAD WO CONon 10-31-2021 CT HEAD [...] by: ROSANNE PERKINS Date: 2021-10-31 14:25 Normal [facility] XR CHEST 1 Von 10-21-2021 XR CHEST [...] ЕЛЕНА ROBERT Date: 2021-10-21 15:50 [address] [facility] XR KUB 1 VIEWon 10-21-2021 XR KUB 1 VIEW EXAM: XR KUB 1 VIEW, XR SKULL LESS THAN 4 VIEWS Clinical Indication: Benign intracranial hypertension Comparison: None FINDINGS: Images of the skull shows a right-sided [employer]ODUCT [employer] shunt tube, coursing along the right side of the neck and chest into the right side of the abdomen The supine and upright views of the abdomen shows a non-obstructive bowel gas pattern. There is no abnormal dilatation of bowel loops. No significant air fluid levels. There is no pneumoperitoneum. Right-sided [employer]ODUCT FIN[employer] shunt is seen, with the tip in the area of the bladder. Cholecystectomy changes are seen. There are no clinically significant osseous abnormalities noted. IMPRESSION: Unremarkable abdominal series The shunt tube begins in the right cerebral hemisphere, and terminates in the pelvis. No obvious discontinuity or kink SL: [id number] Electronically authenticated by: ЕЛЕНА ROBERT Date: 2021-10-21 16:49 Normal [facility] Vital Signs Date Time Vital Sign Value Performing Clinician Facility 02-18-2025 10:43-0400 Body height 157.48 cm Dinesh Bobo MD Work Phone: [facility] 02-18-2025 10:43-0400 Body mass index (BMI) [Ratio] 34.5 kg/m2 Dinesh Bobo MD Work Phone: [facility] 02-18-2025 10:43-0400 Body temperature 96.6 [degF] Dinesh Bobo MD Work Phone: [facility] 02-18-2025 10:43-0400 Body weight 85.72 kg Dinesh Bobo MD Work Phone: [facility] 02-18-2025 10:43-0400 Diastolic blood pressure 76 mm[Hg] Dinesh Bobo MD Work Phone: [facility] 02-18-2025 10:43-0400 Heart rate 66 /min Dinesh Bobo MD Work Phone: [facility] 02-18-2025 10:43-0400 Respiratory rate 18 /min Dinesh Bobo MD Work Phone: [facility] 02-18-2025 10:43-0400 SaO2% (BldA) [Mass fraction] 96 % Dinesh Bobo MD Work Phone: [facility] 02-18-2025 10:43-0400 Systolic blood pressure 124 mm[Hg] Dinesh Bobo MD Work Phone: [facility] 01-27-2025 13:31-0400 Body height 154.94 cm Dinesh Bobo MD Work Phone: [facility] 01-27-2025 13:31-0400 Body mass index (BMI) [Ratio] 35.9 kg/m2 Dinesh Bobo MD Work Phone: [facility] 01-27-2025 13:31-0400 Body weight 86.18 kg Dinesh Bobo MD Work Phone: [facility] 01-27-2025 13:31-0400 Diastolic blood pressure 65 mm[Hg] Dinesh Bobo MD Work Phone: [facility] 01-27-2025 13:31-0400 Heart rate 85 /min Dinesh Bobo MD Work Phone: [facility] 01-27-2025 13:31-0400 Systolic blood pressure 98 mm[Hg] Dinesh Bobo MD Work Phone: [facility] 01-13-2025 13:18-0400 Body height 154.94 cm Dinesh Bobo MD Work Phone: [facility] 01-13-2025 13:18-0400 Body mass index (BMI) [Ratio] 35.3 kg/m2 Dinesh Bobo MD Work Phone: [facility] 01-13-2025 13:18-0400 Body weight 84.82 kg Dinesh Bobo MD Work Phone: [facility] 01-13-2025 13:18-0400 Diastolic blood pressure 64 mm[Hg] Dinesh Bobo MD Work Phone: [facility] 01-13-2025 13:18-0400 Heart rate 82 /min Dinesh Bobo MD Work Phone: [facility] 01-13-2025 13:18-0400 Systolic blood pressure 92 mm[Hg] Dinesh Bobo MD Work Phone: [facility] 12-19-2024 13:03-0400 Body height 154.94 cm Dinesh Bobo MD Work Phone: [facility] 12-19-2024 13:03-0400 Body mass index (BMI) [Ratio] 35.6 kg/m2 Dinesh Bobo MD Work Phone: [facility] 12-19-2024 13:03-0400 Body weight 85.72 kg Dinesh Bobo MD Work Phone: [facility] 12-19-2024 13:03-0400 Diastolic blood pressure 61 mm[Hg] Dinesh Bobo MD Work Phone: [facility] 12-19-2024 13:03-0400 Heart rate 101 /min Dinesh Bobo MD Work Phone: [facility] 12-19-2024 13:03-0400 Systolic blood pressure 91 mm[Hg] Dinesh Bobo MD Work Phone: [facility] 11-21-2024 10:57-0400 Body height 154.94 cm Dinesh Bobo MD Work Phone: [facility] 11-21-2024 10:57-0400 Body mass index (BMI) [Ratio] 36.1 kg/m2 Dinesh Bobo MD Work Phone: [facility] 11-21-2024 10:57-0400 Body weight 86.86 kg Dinesh Bobo MD Work Phone: [facility] 11-21-2024 10:57-0400 Diastolic blood pressure 68 mm[Hg] Dinesh Bobo MD Work Phone: [facility] 11-21-2024 10:57-0400 Heart rate 76 /min Dinesh Bobo MD Work Phone: [facility] 11-21-2024 10:57-0400 Respiratory rate 12 /min Dinesh Bobo MD Work Phone: [facility] 11-21-2024 10:57-0400 SaO2% (BldA) [Mass fraction] 96 % Dinesh Bobo MD Work Phone: [facility] 11-21-2024 10:57-0400 Systolic blood pressure 105 mm[Hg] Dinesh Bobo MD Work Phone: [facility] 10-14-2024 09:50-0400 Body height 154.94 cm Dinesh Bobo MD Work Phone: [facility] 10-14-2024 09:50-0400 Body mass index (BMI) [Ratio] 35.6 kg/m2 Dinesh Bobo MD Work Phone: [facility] 10-14-2024 09:50-0400 Body temperature 98.7 [degF] Dinesh Bobo MD Work Phone: [facility] 10-14-2024 09:50-0400 Body weight 85.72 kg Dinesh Bobo MD Work Phone: [facility] 10-14-2024 09:50-0400 Diastolic blood pressure 64 mm[Hg] Dinesh Bobo MD Work Phone: [facility] 10-14-2024 09:50-0400 Heart rate 102 /min Dinesh Bobo MD Work Phone: [facility] 10-14-2024 09:50-0400 SaO2% (BldA) [Mass fraction] 95 % Dinesh Bobo MD Work Phone: [facility] 10-14-2024 09:50-0400 Systolic blood pressure 95 mm[Hg] Dinesh Bobo MD Work Phone: [facility] 10-01-2024 14:27-0400 Body height 154.94 cm [facility] 10-01-2024 14:27-0400 Body mass index (BMI) [Ratio] 34.5 kg/m2 [facility] 10-01-2024 14:27-0400 Body weight 83 kg [facility] 10-01-2024 14:27-0400 Diastolic blood pressure 70 mm[Hg] [facility] 10-01-2024 14:27-0400 Heart rate 71 /min [facility] 10-01-2024 14:27-0400 Systolic blood pressure 124 mm[Hg] [facility] 07-04-2024 09:25-0500 Body height 154.94 cm [facility] 07-04-2024 09:25-0500 Body mass index (BMI) [Ratio] 34.5 kg/m2 [facility] 07-04-2024 09:25-0500 Body weight 83.03 kg [facility] 07-04-2024 09:25-0500 Diastolic blood pressure 62 mm[Hg] [facility] 07-04-2024 09:25-0500 Heart rate 78 /min [facility] 07-04-2024 09:25-0500 Systolic blood pressure 102 mm[Hg] [facility] 03-28-2024 09:08-0400 Body height 154.94 cm MD Dinesh Bobo Work Phone: [facility] 03-28-2024 09:08-0400 Body mass index (BMI) [Ratio] 34 kg/m2 MD Dinesh Bobo Work Phone: [facility] 03-28-2024 09:08-0400 Body weight 81.64 kg MD Dinesh Bobo Work Phone: [facility] 01-07-2024 13:41-0400 Diastolic blood pressure 53 mm[Hg] MD Dinesh Bobo Work Phone: [facility] 01-07-2024 13:41-0400 Heart rate 64 /min MD Dinesh Bobo Work Phone: [facility] 01-07-2024 13:41-0400 Respiratory rate 16 /min MD Dinesh Bobo Work Phone: [facility] 01-07-2024 13:41-0400 SaO2% (BldA) [Mass fraction] 100 % MD Dinesh Bobo Work Phone: [facility] 01-07-2024 13:41-0400 Systolic blood pressure 94 mm[Hg] MD Dinesh Bobo Work Phone: [facility] 01-07-2024 11:34-0400 Body height 154.94 cm MD Dinesh Bobo Work Phone: [facility] 01-07-2024 11:34-0400 Body weight 82.1 kg MD Dinesh Bobo Work Phone: [facility] 12-13-2023 13:10-0400 Body height 152.4 cm MD Dinesh Bobo Work Phone: [facility] 12-13-2023 13:10-0400 Body mass index (BMI) [Ratio] 36.3 kg/m2 MD Dinesh Bobo Work Phone: [facility] 12-13-2023 13:10-0400 Body weight 84.36 kg MD Dinesh Bobo Work Phone: [facility] 10-19-2023 11:28-0400 Diastolic blood pressure 60 mm[Hg] MD Dinesh Bobo Work Phone: [facility] 10-19-2023 11:28-0400 Heart rate 55 /min MD Dinesh Bobo Work Phone: [facility] 10-19-2023 11:28-0400 Respiratory rate 16 /min MD Dinesh Bobo Work Phone: [facility] 10-19-2023 11:28-0400 SaO2% (BldA) [Mass fraction] 96 % MD Dinesh Bobo Work Phone: [facility] 10-19-2023 11:28-0400 Systolic blood pressure 96 mm[Hg] MD Dinesh Bobo Work Phone: [facility] 10-19-2023 09:21-0400 Body height 152.4 cm MD Dinesh Bobo Work Phone: [facility] 10-19-2023 09:21-0400 Body weight 84.36 kg MD Dinesh Bobo Work Phone: [facility] 10-03-2023 10:40-0400 Body height 158.75 cm [facility] 10-03-2023 10:40-0400 Body mass index (BMI) [Ratio] 34 kg/m2 [facility] 10-03-2023 10:40-0400 Body weight 85.72 kg [facility] 09-07-2023 11:27-0400 Body height 158.75 cm [facility] 09-07-2023 11:27-0400 Body mass index (BMI) [Ratio] 34 kg/m2 [facility] 09-07-2023 11:27-0400 Body weight 85.84 kg [facility] 09-07-2023 11:27-0400 Diastolic blood pressure 70 mm[Hg] [facility] 09-07-2023 11:27-0400 Heart rate 78 /min [facility] 09-07-2023 11:27-0400 Systolic blood pressure 106 mm[Hg] [facility] 06-29-2023 09:45-0500 Body height 158.75 cm Dinesh Bobo Other [facility] 06-29-2023 09:45-0500 Body mass index (BMI) [Ratio] 34.19 kg/m2 Dinesh Bobo Other [employer] Other 06-29-2023 09:45-0500 Body weight 86.18 kg Dinesh Bobo Other [facility] 06-29-2023 09:45-0500 Diastolic blood pressure 70 mm[Hg] Dinesh Bobo Other [facility] 06-29-2023 09:45-0500 Systolic blood pressure 101 mm[Hg] Dinesh Jeramie Other [facility] 08-18-2022 14:08-0500 Heart rate 65 /min Reza [facility] 08-18-2022 14:08-0500 SaO2% (BldA) [Mass fraction] 95 % Reza [facility] 08-18-2022 14:08-0500 Diastolic blood pressure 73 mm[Hg] Reza [facility] 08-18-2022 14:08-0500 Mean blood pressure 85 mm[Hg] Reza [facility] 08-18-2022 14:08-0500 Systolic blood pressure 110 mm[Hg] Reza Brown [facility] 08-18-2022 14:08-0500 Respiratory rate 18 /min Reza [facility] 08-18-2022 13:04-0500 Heart rate 71 /min Reza [facility] 08-18-2022 13:04-0500 SaO2% (BldA) [Mass fraction] 92 % Reza [facility] 08-18-2022 12:10-0500 SaO2% (BldA) [Mass fraction] 94 % Reza [facility] 08-18-2022 12:06-0500 Heart rate 75 /min Reza [facility] 08-18-2022 12:05-0500 Respiratory rate 18 /min Reza [facility] 08-18-2022 12:04-0500 Diastolic blood pressure 70 mm[Hg] Reza [facility] 08-18-2022 12:04-0500 Mean blood pressure 80 mm[Hg] Reza [facility] 08-18-2022 12:04-0500 Systolic blood pressure 101 mm[Hg] Reza [facility] 08-18-2022 12:04-0500 Body temperature 97.52 [degF] Reza [facility] 08-18-2022 11:55-0500 Body temperature 97.7 [degF] Reza [facility] 08-18-2022 11:55-0500 Diastolic blood pressure 66 mm[Hg] Reza [facility] 08-18-2022 11:55-0500 Mean blood pressure 74 mm[Hg] Reza [facility] 08-18-2022 11:55-0500 Respiratory rate 12 /min Reza [facility] 08-18-2022 11:55-0500 Systolic blood pressure 90 mm[Hg] Reza [facility] 08-18-2022 11:45-0500 Mean blood pressure 79 mm[Hg] Reza [facility] 08-18-2022 11:45-0500 Respiratory rate 16 /min Reza [facility] 08-18-2022 11:30-0500 Mean blood pressure 83 mm[Hg] Reza [facility] 08-18-2022 11:30-0500 Respiratory rate 12 /min Reza [facility] 08-18-2022 11:02-0500 Body temperature 97.16 [degF] Reza [facility]ctor [facility] 08-18-2022 10:55-0500 Respiratory rate 10 /min Reza [facility] 08-18-2022 06:40-0500 Mean blood pressure 83 mm[Hg] Reza [facility] 08-18-2022 06:40-0500 Blood Pressure Location Reza [facility] 08-18-2022 06:40-0500 Heart rate 88 /min Reza [facility] 08-18-2022 06:39-0500 Body temperature 98.06 [degF] Reza [facility] 08-18-2022 06:38-0500 Blood Pressure Location Reza Pro[facility] 08-16-2022 09:15-0500 Body height 158.75 cm Dinesh Bobo Other [facility] Other 08-16-2022 09:15-0500 Body mass index (BMI) [Ratio] 35.45 kg/m2 Dinesh Bobo Other [facility] Other 08-16-2022 09:15-0500 Body weight 89.36 kg Dinesh Bobo Other [facility] Other 08-16-2022 09:15-0500 Diastolic blood pressure 68 mm[Hg] Dinesh Bobo Other [facility] Other 08-16-2022 09:15-0500 SaO2% (BldA) [Mass fraction] 97 % Dinesh Bobo Other [facility] Other 08-16-2022 09:15-0500 Systolic blood pressure 108 mm[Hg] Dinesh Bobo Other [facility] Other 08-08-2022 15:39-0500 Diastolic blood pressure 77 mm[Hg] Reza [facility] 08-08-2022 15:39-0500 Heart rate 71 /min Reza [facility] 08-08-2022 15:39-0500 Mean blood pressure 90 mm[Hg] Rzea [facility]d [facility] 08-08-2022 15:39-0500 Systolic blood pressure 117 mm[Hg] Reza [facility] 08-08-2022 15:39-0500 Heart rate 77 /min Reza [facility] 08-08-2022 15:39-0500 SaO2% (BldA) [Mass fraction] 100 % Reza [facility] 08-08-2022 15:38-0500 Diastolic blood pressure 81 mm[Hg] Reza [facility] 08-08-2022 15:38-0500 Mean blood pressure 98 mm[Hg] Reza [facility] 08-08-2022 15:38-0500 Systolic blood pressure 133 mm[Hg] Reza [facility] 08-08-2022 15:38-0500 Respiratory rate 16 /min Reza [facility] 11-15-2021 11:00-0400 Body height 158.75 cm Seb Bobo Other [employer] Other 11-15-2021 11:00-0400 Body mass index (BMI) [Ratio] 33.83 kg/m2 Seb Bobo Other [facility] [employer] Other 11-15-2021 11:00-0400 Body weight 85.28 kg Seb Bobo Other [facility] [employer] Other Encounters Encounter Date Encounter Type Care Provider Facility Start: 02-18-2025 End: 02-18-2025 ambulatory Dinesh Bobo MD Work Phone: [facility] Work Phone: Start: 02-18-2025 End: 02-18-2025 Patient encounter procedure Jaylin Carrero CLINICAL PHARMACIST -[facility] Work Phone: Start: 01-27-2025 End: 01-27-2025 ambulatory Dinesh Bobo MD Work Phone: [facility] Work Phone: Start: 01-27-2025 End: 01-27-2025 Patient encounter procedure Dinesh Bobo MD -[facility] Work Phone: Start: 01-13-2025 End: 01-13-2025 ambulatory Dinesh Bobo MD Work Phone: [facility] Work Phone: Start: 01-13-2025 End: 01-13-2025 Patient encounter procedure Dinesh Bobo MD -[facility] Work Phone: Start: 12-19-2024 End: 12-19-2024 ambulatory Dinesh Bobo MD Work Phone: [facility] Work Phone: Start: 12-19-2024 End: 12-19-2024 Patient encounter procedure Dinesh Bobo MD -[facility] Work Phone: Start: 11-21-2024 End: 11-21-2024 ambulatory Dinesh Bobo MD Work Phone: [facility] Work Phone: Start: 11-21-2024 End: 11-21-2024 Patient encounter procedure Dinesh Bobo MD Work Phone: [facility] Physician [facility] Work Phone: Start: 11-07-2024 End: 11-07-2024 Patient encounter procedure Dinesh Bobo MD Work Phone: [facility] [place] Work Phone: Start: 11-07-2024 End: 11-07-2024 ambulatory Imelda L Ly Facility:[facility] Start: 10-14-2024 Non-patient / Non-visit Dinesh Bobo MD Work Phone: [facility] Physician [facility] Work Phone: Start: 10-14-2024 End: 10-14-2024 ambulatory Dinesh Bobo MD Work Phone: [facility] Work Phone: Start: 10-14-2024 End: 10-14-2024 Patient encounter procedure Dinesh Bobo MD Work Phone: [facility] Physician [facility] Work Phone: Start: 10-03-2024 End: 10-03-2024 Patient encounter procedure Dinesh Bobo MD Work Phone: [facility] [place] Work Phone: Start: 10-03-2024 End: 10-03-2024 ambulatory Dinesh Bobo MD Work Phone: [facility] Work Phone: Start: 10-01-2024 End: 10-01-2024 ambulatory [facility] Work Phone: Start: 10-01-2024 End: 10-01-2024 Patient encounter procedure [facility] Physician [facility] Work Phone: Start: 07-26-2024 Non-patient / Non-visit [facility] Physician [facility] Work Phone: Start: 07-25-2024 End: 07-25-[address] [facility] Start: 07-04-2024 End: 07-04-2024 Patient encounter procedure [facility] Work Phone: Start: 05-24-2024 ambulatory [facility] Start: 03-28-2024 End: 03-28-2024 ambulatory MD Dinesh Bobo Work Phone: [facility] Work Phone: Start: 03-28-2024 End: 03-28-2024 Patient encounter procedure MD Dinesh Bobo Work Phone: [facility]XRay [facility] Work Phone: Start: 03-12-2024 End: 03-12-2024 Nursing evaluation of patient and report Breath Test [facility] Work Phone: [facility] Comment on above: Diarrhea, unspecifie d type (Primary Dx) Start: 01-07-2024 Non-patient / Non-visit MD Lillian Bobo Work Phone: [facility] Physician [facility] Gastroenterology Work Phone: Start: 01-07-2024 End: 01-07-2024 Admission to same day surgery center MD Dinesh Bobo Work Phone: [facility] Work Phone: Start: 01-07-2024 End: 01-07-2024 ambulatory MD Dinesh Bobo Work Phone: [facility] Work Phone: Start: 12-13-2023 End: 12-13-2023 Patient encounter procedure MD Dinesh Bobo Work Phone: [facility] Gastroenterology Work Phone: Start: 11-07-2023 Non-patient / Non-visit MD Lillian Bobo Work Phone: [facility] Physician [facility] Work Phone: Start: 11-02-2023 End: 11-02-2023 ambulatory MD Dinesh Bobo Work Phone: [facility] Work Phone: Start: 11-02-2023 End: 11-02-2023 Patient encounter procedure MD Dinesh Bobo Work Phone: [facility] [place] Work Phone: Start: 10-24-2023 Non-patient / Non-visit MD Lillian Bobo Work Phone: [facility] Phys[facility] Work Phone: Start: 10-22-2023 Non-patient / Non-visit MD Lillian Bobo Work Phone: [facility] Phys[facility] Work Phone: Start: 10-19-2023 Non-patient / Non-visit MD Lillian Bobo Work Phone: [facility] Work Phone: Start: 10-19-2023 End: 10-19-2023 Admission to same day surgery center MD Dinesh Bobo Work Phone: [facility] Work Phone: Start: 10-19-2023 End: 10-19-2023 ambulatory MD Dinesh Bobo Work Phone: [facility] Work Phone: Start: 10-03-2023 End: 10-03-2023 ambulatory [facility] Work Phone: Start: 10-03-2023 End: 10-03-2023 Patient encounter procedure [facility] Work Phone: Start: 09-07-2023 End: 09-07-2023 ambulatory [facility] Work Phone: Start: 09-07-2023 End: 09-07-2023 Patient encounter procedure [facility] Work Phone: Start: 08-14-2023 Non-patient / Non-visit [facility] Phys[facility] Work Phone: Start: 07-17-2023 End: 07-17-2023 ambulatory Dinesh Bobo Other [facility] Other Start: 07-17-2023 Telephone encounter Dinesh Jeramie [facility] Start: 06-29-2023 End: 06-29-2023 ambulatory Dinesh Jeramie Other [facility] Other Start: 06-29-2023 Office outpatient vi sit 15 minutes Dinesh Bobo [facility] Start: 06-29-2023 End: 06-29-2023 Patient encounter procedure [facility] Work Phone: Start: 10-11-2022 End: 02-26-2023 ambulatory Reza Proctor Facility[facility] Start: 10-11-2022 End: 02-25-[address] [facility] Start: 08-23-2022 End: 08-23-2022 ambulatory Dinesh Jeramie Other [facility] Other Start: 08-23-2022 Telephone encounter Dinesh Jeramie [facility] Start: 08-21-2022 End: 08-21-2022 ambulatory Dinesh Jeramie Other [facility] Other Start: 08-21-2022 Telephone encounter Dinesh Bobo [facility] Start: 08-18-2022 End: 08-18-2022 ambulatory Reza Proctor [facility] Start: 08-18-2022 End: 08-18-2022 Admission to same day surgery center Reza Proctor [facility] Start: 08-16-2022 End: 08-16-2022 ambulatory Dinesh Bobo Other [facility] Other Start: 08-16-2022 Office outpatient vi sit 15 minutes Dinesh [facility] Start: 08-14-2022 End: 08-15-[address] DINESH BOBO Facility: Start: 08-08-2022 End: 08-09-2022 ambulatory Reza Proctor Facility:[facility] Start: 08-08-2022 End: 08-08-2022 Patient encounter procedure Reza Proctor [facility] Start: 01-23-2022 End: 02-18-[address] DINESH BOBO Facility:[facility] Start: 01-12-2022 End: 01-13-[address] DINESH BOBO Facility:[facility] Start: 01-09-2022 Gynecological examination normal Dinesh Bobo Other [facility] Other Start: 11-15-2021 End: 11-15-2021 ambulatory Seb Bobo Other [facility] Other Start: 11-15-2021 Office outpatient ne w 30 minutes Seb Bobo [facility] Start: 10-31-2021 End: 11-01-[address] DINESH BOBO Facility:[facility] Start: 10-21-2021 End: 10-22-[address] DINESH BOBO Facility:[facility] Procedures Date Procedure Procedure Detail Performing Clinician Start: 11-07-2024 CT of small intestine Dinesh Bobo MD Work Phone: Start: 07-26-2024 Cortisol total Comment on above: Please Note: The reference interval and flagging for this test is for an AM collection. If this is a PM collection please use: Cortisol PM: 2.3-11.9Performed at: [facility] [address] [id number] Director: Lloyd Wu PhD, Phone: [phone] Start: 03-28-2024 Supine abdominal X-ray MD Dinesh Bobo Work Phone: Start: 01-07-2024 Flexible fiberoptic sigmoidoscopy MD Lillian Bobo Work Phone: Start: 11-07-2023 E coli Shiga Toxin EIA MD Dinesh Bobo Work Phone: Start: 11-07-2023 Salmonella/Shigella Screen MD Dinesh Johnson un Work Phone: Start: 11-02-2023 Computed tomography of abdomen and pelvis with contrast MD Dinesh Bobo Work Phone: Start: 10-19-2023 Esophagogastroduodenoscopy MD Dinesh Johnson un Work Phone: Start: 08-18-2022 Debridement Reza Proctor Start: 12-24-2017 Screening mammography Dinesh Bobo Other Cholecystectomy Reza Proctor Colonoscopy Reza Proctor Excision of cyst Reza Proctor H/O: surgery Seb Jeramie Other History of total hysterectomy Reza Proctor Procedure on brain v entricular shunt Reza Proctor Plan of Treatment Date Care Activity Detail Author Start: 01-13-2025 Patient referral [facility] Work Phone: Start: 12-19-2024 Patient referral [facility] Work Phone: Start: 10-03-2024 [facility] Start: 03-28-2024 Elastase.pancreatic [Mass/mass] in Stool [facility] Start: 02-24-2024 Covid-19 Vaccine ( season) Covid-19 Vaccine () [facility] Start: 02-24-2024 Influenza vaccination Influenza Vacc ine (#1) [facility] Start: 01-07-2024 [facility] Start: 10-19-2023 [facility] Start: 09-07-2023 Patient referral [facility] Work Phone: Start: 2020 Diabetes Screening Diabetes Screenin g [facility] Start: 2020 Lipid panel Lipid Screening [facility] Start: 2020 Screening for malign ant neoplasm of colon [facility] Start: 2015 Screening for malign ant neoplasm of breast Mammogram Screening [facility] Start: 1996 Screening for malign ant neoplasm of cervix Cervical Cancer Screening [facility] Start: 1994 Hepatitis B Vaccine (1 of 3 - 19+ 3-dose series) Hepatitis B Vaccine (1 of 3 - 19+ 3-dose series) [facility] Start: 1994 Urine microalbumin profile DTaP,Tdap,Td Vaccine (1 - Tdap) [facility] Start: 1993 Anxiety Screening Anxiety Screening [facility] Start: 1993 Depression Screening Depression Scre ening [facility] Start: 1993 Hepatitis C screening Hepatitis C Sc reening [facility] Start: 1993 HIV screening HIV Screening [facility] CT Abdomen and Pelvis [facility] MG Breast - bilatera l Screening [facility] Patient Education [facility] Work Phone: Patient referral [facility] Work Phone: [facility] Payers Date Payer Category Payer Self-pay 2022 Private Health Insurance 1975 Unknown [id number] 2.16.84 [id number] 1975 Unknown [id number] 2.16.84 [id number] 1975 Unknown [id number] 2.16.84 [id number] 1975 Unknown [id number] 2.16.84 [id number] 1975 Unknown [id number] 2.16.84 [id number] 1975 Unknown [id number] 2.16.8 [id number] 1975 Unknown [id number] 2.16.8 [id number] 1975 Unknown [id number] 2.16.8 [id number] 1959 Unknown [id number] 2.16.8 [id number] Unknown [id number] 2.16 [id number] Unknown [place] [id number] Unknown [id number] 2.16.8 [id number] Unknown [id number] 2.16.8 [id number] Unknown [id number] 2.16.8 [id number] Unknown [id number] 2.16.8 [id number] Social History Date Type Detail Facility Start: 03-12-2024 Sex Assigned At F [facility] Start: 08-08-2022 Tobacco smoking status Light tobacco smoker (finding) [facility] Start: 1975 Sex Assigned At Female F [facility] Start: 10-19-2023 End: 01-07-2024 Tobacco smoking status NHIS Smoker (finding) [facility] Tobacco smoking status WIIS Tobacco smoking consumption unknown [facility] Start: 03-12-2024 History of Social function [facility] National Score (1-100), lower number is lower risk 91 [facility] Start: 1975 Sex assigned at Not on file [facility] Start: 10-01-2024 End: 11-21-2024 Sex Female (finding) [facility] Start: 01-07-2024 Tobacco smoking status WIIS Smokes tobacco daily (finding) [facility] Medical Equipment Procedure Code Equipment Code Equipment Origin al Text Equipment Identifier Dates ULNAR NERVE TRANSPOSITION Reza Proctor DO 08/18/22 Unknown Elbow L FDA Start: 08-18-2022 ULNAR NERVE TRANSPOSITION Reza Proctor DO 08/18/22 Unknown Elbow L FDA Start: 08-18-2022 Goals Date Patient Goal Desired Activity /State Functional Status Date Assessment Result Facility 08-08-2022 Functional Status No [facility] Clinical Notes 11-15-2021 to 01-13-2025 Note Date & Type Note Facility 01-13-2025 Hospital Discharg e instructions Ambulatory OrdersReferral to ENT Time Frame: 01/13/25, Location: None Selected [facility] Work Phone: 11-21-2024 Evaluation note Diagnosis Onset Date Resolution Class 2 obesity with body mass index (BMI) of 36.0 to 36.9 in adult inactive November 21, 2024 10:55am Class 2 obesity with body mass index (BMI) of 35.0 to 35.9 in adult acute December 19, 2024 1:01pm Headache acute December 19 1:01pm Intracranial shunt acute November 242024 1:01pm Ear canal mass acute January 13, 2025 1:08pm [facility] Work Phone: 1(614) 167-211805-30-2025 Evaluation note* Diagnosis Onset Date Resolution Status Admit Date Class 2 obesity with body ma ss index (BMI) of 36.0 to 36.9 in adult inactive November 21, 2024 1 0:55am Class 2 obesity with body ma ss index (BMI) of 35.0 to 35.9 in adult acute December 19, 2024 1:01pm Headache acute December 19 1:01pm Intracranial shunt acute November 242024 1:01pm Acute effusion of both middl e ears acute January 13, 2025 1:08pm Ear canal mass acute January 13, 2025 1:08pm [facility] Work Phone: 1(985) 279-266305-30-2025 Evaluation note* Diagnosis Onset Date Resolution Status Admit Date Class 2 obesity with body ma ss index (BMI) of 36.0 to 36.9 in adult inactive November 21, 2024 1 0:55am Class 2 obesity with body ma ss index (BMI) of 35.0 to 35.9 in adult acute December 19, 2024 1:01pm Headache acute December 19 1:01pm Intracranial shunt acute November 242024 1:01pm Acute effusion of both middl e ears acute January 13, 2025 1:08pm Ear canal mass acute January 13, 2025 1:08pm Class 2 obesity with body ma ss index (BMI) of 35.0 to 35.9 in adult acute January 27, 2025 1:30pm Insomnia acute January 27 1:30pm Major depressive disorder acute January 27, 2025 1:30pm [facility] Work Phone: 1(100) 560-532904-09-2025 Evaluation note* Diagnosis Onset Date Resolution Status Admit Date Irritable bowel syndrome wit h diarrhea acute October 01, 2024 1:54pm [facility] Work Phone: 1(787) 288-397404-09-2025 Evaluation note* Diagnosis Onset Date Resolution Status Admit Date Irritable bowel syndrome wit h diarrhea acute October 01, 2024 1:54pm Sinusitis, acute maxillary acute October 14, 2024 9:48am Class 2 obesity with body ma ss index (BMI) of 36.0 to 36.9 in adult acute November 21, 2024 1 0:55am [facility] Work Phone: 1(441) 968-423804-09-2025 Evaluation note* Diagnosis Onset Date Resolution Status Admit Date Irritable bowel syndrome wit h diarrhea acute October 01, 2024 1:54pm Sinusitis, acute maxillary acute October 14, 2024 9:48am Class 2 obesity with body ma ss index (BMI) of 36.0 to 36.9 in adult acute November 21, 2024 1 0:55am Headache acute December 19 1:01pm Intracranial shunt acute November 242024 1:01pm [facility] Work Phone: 1(271) 827-558701-31-2025 [facility] Reason for [...] She reports 2 events of syncope same-day [id number] as described above RESPIRATORY: Denies SOB, coughing, [...] sinus arrhythmia, RSR nelson (more content not included)...[facility]01-10-2025 Evaluation note* Diagnosis Onset Date Resolution Status Admit Date Irritable bowel syndrome wit h diarrhea acute July 04 9:19am [facility] Work Phone: 1(219) 167-222909-18-2024 History of Present illness Narrative* Shelley Gamboa 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.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 - 03/12/2024 5:04 PM EDT Glucose - SIBO CPT 14714 Hydrogen Breath Test Poorinma Barker 1975 March 12, 2024 Referring Physician: Imelda Jiang DO Indication: NSG TEST INDICATIONS: DIARRHEA R19.7 Weight: 183 lbs [facility] Duration of Test: 2 Hours Hydrogen Methane CO2 MEASURED CORRECTION FACTOR TESTERS NAME Baseline 9:15 am 3 5 4.0 1.37 Maxine Lee RMA Test Solution Given: 100 gm Glucose 10 oz Liquid Maxine Lee RMA #1 - 15 minutes 9:30 am 2 6 3.4 1.61 Maxine Lee, RMA #2 - 30 minutes 9:45 am 4 8 2.9 1.89 Maxine Rosa, RMA #3 - 45 minutes 10:00 am 5 7 3.2 1.71 Maxine Rosa, RMA #4 - 60 minutes 10:15 am 11 9 3.1 1.77 Maxine Nowakger, RMA #5 - 75 minutes 10:30 am [...] physician Signature:Shelley Gamboa APRN.CNP [facility] History and physical note Author Imelda Jiang [facility] October 19, 2023 9:55am Note Date/Time October 19, 2023 9:5 5am [facility] [address] [place] [address] Gastroenterology H&P Signed Patient: Poornima Barker MR#: [id number] : 1975 Acct:[id number] Age/Sex: 48 / F Adm Date: 4 Loc: Room: Type: [facility] Attending Dr: Imelda Jiang DO Copies [...] signed by Imelda Jiang DO> 10/19/23 0955 [facility] Work Phone: 1(680) 269-877504-26-2024 [facility] Evaluation note* Encounter Date Diagnosis Assessment Notes Treatment Notes Treatment Clinical Notes Jun, Major depressive disorder with single episode, remission status unspecified (ICD-10 - F32.9) Jun, Insomnia, unspecified (ICD-10 - G47.00) [facility] Other 01-05-2024 Evaluation note* Encounter Date Diagnosis Assessment Notes Treatment Notes Treatment Clinical Notes Jun, Major depressive disorder with single episode, remission status unspecified (ICD-10 - F32.9) call or come in 1 month for recheck gave counseling options Jun, Insomnia, unspecified (ICD-10 - G47.00) as above [facility] Other 02-24-2023 Evaluation + Plan noteExtracted from: Title:DARREN Post-operative Note Author:David Montaño MD Date:08/18/22 Plan Transfer/Discharge: Transfer/Discharge Discharge when meets criteria ( From PACU to Ambulatory Surgery Unit, and To home ). Extracted from: Title:DARREN Pre-operative Note Author:Marito Montaño MD Date:08/18/22 Plan [place] [employer] (ASA) physical status classification: Class II. Anesthetic Preoperative Plan: Anesthesia General. Regional Interscalene block. 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 It is therefore advised notto drive until after your first office visit following surgery. Do not drive while taking pain medication. Reza Proctor, DO [facility] [address] [place] [id number] Reviewed: 08/18/2022 06:11:36 Post Op Patient Instructions - FT (Custom) [facility]02-23-2023 Note [id number]:127[facility] 08-16-2022 Evaluation note* Encounter Date Diagnosis Assessment Notes Treatment Notes Treatment Clinical Notes Jul, Other non-recurrent acute nonsuppurative otitis media of both ears (ICD-10 - H65.193) Stop augmentin. Switch to zpack. Finish all antibiotic. Get OTC debrox for R ear treatment for cerumen. [facility] Other 07-22-2022 NotePROCEDURE: XR ELBOW LT MIN [...] authenticated by: ROSANNE PERKINS Date: 2022-01-13 07:40[facility]07-22-2022 NotePROCEDURE: XR ELBOW LT MIN 3 [...] authenticated by: ROSANNE PERKINS Date: 2022-01-13 07:40[facility]05-24-2022 Evaluation note* Encounter Date Diagnosis Assessment [...] migraine type (ICD-10 - G43.909) October, S/P PRODUCT FINISHER shunt (ICD-10 - Z98.2) [facility] [employer] Other evaluation + Plan note Future Appointments Appointment Date:08/18/2022 09:30:00 AM Scheduled Provider: Location:[facility]No [facility] [employer] Other Evaluation note* Diagnosis Onset Date Resolution Status Screening mammogram for breast cancer [facility] Work Phone: Evaluation note* Diagnosis Onset Date Resolution Status Epigastric abdominal pain ac [place] GERD (gastroesophageal reflux disease) acute Screening mammogram for breast cancer acute Chronic constipation acute Epigastric abdominal pain ac [place] GERD (gastroesophageal reflux disease) acute Screening for colon cancer a [facility] Work Phone: Evaluation note* Diagnosis Onset Date Resolution Status Diarrhea acute Epigastric abdominal pain ac [place] GERD (gastroesophageal reflux disease) [facility] Work Phone: Evaluation note* Diagnosis Onset Date Resolution Status Diarrhea [facility] Work Phone: Evaluation note* Diagnosis Diarrhea, unspecified type- Primary documented [facility] this encounter [facility] Author Imelda Jiang [facility] January 07, 2024 12:35pm Note Date/Time January 07, 2024 12:3 5pm [facility] [address] [place] [address] Gastroenterology H&P Signed Patient: Poornima Barker MR#: [id number] : 1975 Acct:[id number] Age/Sex: 48 / F Adm Date: 4 Loc: Room: Type: [facility] Attending Dr: Imelda Jiang DO Copies [...] signed by Imelda Jiang DO> 01/07/24 1235 [facility] Work Phone: History general Narrative - Reported* Type Description Date Medical History Migrande headaches Surgical History Procedure:cyst removal;Disease: 1979 Surgical History Procedure:Tonsillectomy;Disease : 1992 Surgical History Procedure:laproscopic;Disease: 1999 Surgical History Procedure: section;Dise ase: 2004 Surgical History Procedure:gallbladder;Disease: 2005 Surgical History Procedure:Hysterectomy;Disease: 2005 Surgical History Procedure:shunt in head;Disease : 2009 Hospitalization History See [employer] Other History general Narrative - Reported* Type Description Date Medical History Migraine headaches Medical History Pseudotumor cerebri syndrome Medical History Transfusion history Surgical History Procedure:cyst removal;Disease: 1979 Surgical History Procedure:Tonsillectomy;Disease : 1992 Surgical History Procedure:laproscopic;Disease: 1999 Surgical History Procedure: section;Dise ase: 2004 Surgical History Procedure:gallbladder;Disease: 2005 Surgical History Procedure:Hysterectomy;Disease: 2005 Surgical History Procedure:shunt in head;Disease : 2009 Hospitalization History See [facility] Other [facility] general Narrative - Reported* Type Description Date [...] Left elbow surgery 07/2022 Hospitalization History See [facility] Other Hospital course Narrative No data [facility] No data available for this section [facility] Discharge instructionsAmbulatory Orders* Referral to Neurology Time Frame: 12/19/24, Location: None [facility] Work Phone: Progress note No data available for this section [facility] NarrativeReferral Dinesh Bobo Pseudotumor Cerebri SyndromeNort Thermodynamic Process Control Other Reason for Referral Reason *FU 11/24 Papilled carlos and Visual Field Exams with DETAILED Interpretations and Reports Please Diagnosis 1 Pseudotumor cerebri (G93.2) Referral Organization [facility] urosurgery Referring Provider First Name Seb Referring Provider Last Name Jeramie Referring Provider Specialty Neurologica l Surgery Referred Organization [facility] Referred Provider Robi Parada Referred Address [address] [place], [place],[address] Referred Provider Specialty Ophthalmolog y Referral Priority [...] 2024 1:54pm Sinusitis, acute maxillary October 14, 2 025 9:48am Class 2 obesity with body ma ss index (BMI) of 36.0 to 36.9 in adult November 21, 2024 10:55am Chief Complaint Admit Date 3 month follow up October 01, 2024 1:54 pm R19.7 October 03, 2024 1:0 1pm URI October 14, 2024 9:4 8am Amb Documentation October 14, 2024 9:5 9am K58.0 R10.13 November 07, 2024 8:16a m Discuss Weight Loss November 21, 2024 10:55 am headache follow up December 19, 2024 1:01 pm Reason for Visit Admit Date Irritable bowel syndrome with diarrhea A pril 2024 1:54pm Sinusitis, acute maxillary October 14, 2 025 9:48am Class 2 obesity with body ma ss index (BMI) of 36.0 to 36.9 in adult November 21, 2024 10:55am Headache December 19, 2024 1:01 pm Intracranial shunt December 19, 2024 1:01 pm Chief Complaint Admit Date K58.0 R10.13 November 07, 2024 8:16a m Discuss Weight Loss November 21, 2024 10:55 am headache follow up December 19, 2024 1:01 pm right ear fullness January 13, 2025 1:08 pm Reason for Visit Admit Date Class 2 obesity with body ma ss index (BMI) of 36.0 to 36.9 in adult November 21, 2024 10:55am Class 2 obesity with body ma ss index (BMI) of 35.0 to 35.9 in adult December 19, 2024 1:01pm Headache December 19, 2024 1:01 pm Intracranial shunt December 19, 2024 1:01 pm Ear canal mass January 13, 2025 1:08 pm Chief Complaint Admit Date K58.0 R10.13 November 07, 2024 8:16a m Discuss Weight Loss November 21, 2024 10:55 am headache follow up December 19, 2024 1:01 pm right ear fullness January 13, 2025 1:08 pm medication concerns January 27, 2025 1:3 0pm Reason for Visit Admit Date Class 2 obesity with body ma ss index (BMI) of 36.0 to 36.9 in adult November 21, 2024 10:55am Class 2 obesity with body ma ss index (BMI) of 35.0 to 35.9 in adult December 19, 2024 1:01pm Headache December 19, 2024 1:01 pm Intracranial shunt December 19, 2024 1:01 pm Acute effusion of both middle ears January 13, 2025 1:08pm Ear canal mass January 13, 2025 1:08 pm Chief Complaint Admit Date Discuss Weight Loss November 21, 2024 10:55 am headache follow up December 19, 2024 1:01 pm right ear fullness January 13, 2025 1:08 pm medication concerns January 27, 2025 1:3 0pm Left eye redness February 18, 2025 10 :38am Reason for Visit Admit Date Class 2 obesity with body ma ss index (BMI) of 36.0 to 36.9 in adult November 21, 2024 10:55am Class 2 obesity with body ma ss index (BMI) of 35.0 to 35.9 in adult December 19, 2024 1:01pm Headache December 19, 2024 1:01 pm Intracranial shunt December 19, 2024 1:01 pm Acute effusion of both middle ears January 13, 2025 1:08pm Ear canal mass January 13, 2025 1:08 pm Class 2 obesity with body ma ss index (BMI) of 35.0 to 35.9 in adult January 27, 2025 1:30pm Insomnia January 27, 2025 1:3 0pm Major depressive disorder January 27 1:30pm Additional Source Comments Patient Care team informatio n (unrecognized section and content) Team Status: Active Member Role Status Ade Bobo MD Primary Care Provider Active Team Status: Inactive Member Role Status Ade Bobo MD Primary Care Provider Active Start: October 01, 2024 End: October 01, 2024 Imelda Jiang DO Attending Provider Active St art: October 01, 2024 End: October 01, 2024 Team Status: Inactive Member Role Status Dates Dinesh Bobo MD Primary Care Provider Active Start: October 03, 2024 End: October 03, 2024 Imelda Jiang DO Attending Provider Active St art: October 03, 2024 End: October 03, 2024 Team Status: Inactive Member Role Status Ade Bobo MD Primary Care Provide r, Attending Provider Active Start: October 14, 2024 End: October 14, 2024 Team Status: Active Member Role Status Ade Bobo MD Primary Care Provider Active Start: October 14, 2024 Tayla Vargas CMA Attending Provider Active St art: October 14, 2024 Team Status: Inactive Member Role Status Ade Bobo MD Primary Care Provider Active Start: November 07, 2024 End: November 07, 2024 Imelda Jiang DO Attending Provider Active St art: November 07, 2024 End: November 07, 2024 Team Status: Inactive Member Role Status Ade Bobo MD Primary Care Provide r, Attending Provider Active Start: November 21, 2024 End: November 21, 2024 Team Status: Active Member Role Status Dates Dinesh Bobo MD Primary Care Provider Active Start: July 26, 2024 Van Hernandez MD Attending Provider Active Star t: July [...] 2024 Team Status: Active Member Role Status Ade Bobo MD Primary [...] 03, 2023 End: October 03, 2023 Imelda Jiang , DO Attending Provider Active St art: October 03, 2023 End: October 03, 2023 Team Status: Inactive Member Role Status Dates Dinesh Bobo MD Attending Provider Active St art: June 29, 2023 End: June 29, 2023 Team Status: Inactive Member Role Status Dates Dinesh Bobo MD Primary Care Provider Active Start: March 28, 2024 End: March 28, 2024 Imelda Jiang , DO Attending Provider Active St art: March 28, 2024 End: March 28, 2024 Director Corporate Sales Relationship Specialty Start Date End Date Dinesh Bobo MD [address] [place] [address] PCP - General Family Medicine 03/12/24 Team Status: Inactive Member Role Status Dates Dinesh Bobo MD Primary Care Provider Active Start: July 04, 2024 End: July 04, 2024 Imelda Jiang DO Attending Provider Active St art: July 04, 2024 End: July 04, 2024 Team Status: Inactive Member Role Status Dates Dinesh Bobo MD Primary Care Provider Active Start: October 14, 2024 End: October 14, 2024 Dinesh Bobo MD Attending Provider Active St art: October 14, 2024 End: October 14, 2024 Team Status: Inactive Member Role Status Dates Dinesh Bobo MD Primary Care Provider Active Start: November 21, 2024 End: November 21, 2024 Dinesh Bobo MD Attending Provider Active St art: November 21, 2024 End: November 21, 2024 Team Status: Inactive Member Role Status Dates Dinesh Bobo MD Primary Care Provider Active Start: December 19, 2024 End: December 19, 2024 Dinesh Bobo MD Attending Provider Active St art: December 19, 2024 End: December 19, 2024 Team Status: Inactive Member Role Status Dates Dinesh Bobo MD Primary Care Provider Active Start: January 13, 2025 End: January 13, 2025 Dinesh Bobo MD Attending Provider Active St art: January 13, 2025 End: January 13, 2025 Team Status: Inactive Member Role Status Dates Dinesh Bobo MD Primary Care Provider Active Start: January 27, 2025 End: January 27, 2025 Dinesh Bobo MD Attending Provider Active St art: January 27, 2025 End: January 27, 2025 Team Status: Inactive Member Role Status Dates Dinesh Bobo MD Primary Care Provider Active Start: February 18, 2025 End: February 18, 2025 CLEMENT Sanches RN MARKETING ASSOCIATE-C Attending Provider Active Start: February 18, 2025 End: February 18, 2025 INFORMATION SOURCE (unrecogn ized section and content) DATE CREATED AUTHOR 08/17/2022 [facility] DATE CREATED AUTHOR AUTHOR'S ORGANIZ ATION 02/25/2023 [facility] DATE CREATED AUTHOR AUTHOR'S ORGANIZ ATION 05/25/2024 [facility] DATE CREATED AUTHOR AUTHOR'S ORGANIZ ATION 07/28/2024 [facility] DATE CREATED AUTHOR AUTHOR'S ORGANIZ ATION 11/08/2024 [facility] REASON FOR VISIT (unrecogniz ed [...] or prosecute any alcohol or drug abuse patient.[facility] FOR RECORDS PERTAINING TO PATIENTS WHO [...] BE BASED ON THE PRIMARY CLINICAL RECORDS. [facility] [facility]. provides no warranty or guarantee of the accuracy or completeness of information in this document.
--- NOTE | 2025-03-08 22:01 | ECG_ITS ---
The [facility] Test Date: 2025-03-08 Pat Name: POORNIMA RIVERA Department: Room: - Gender: Female Link Trainer: : 1975 Requested By: [id number] Order Number: [id number] Reading MD: MARYANN TATE Measurements Intervals [place] Rate: 98 P: 55 [place]: 160 QRS: 69 QRSD: 74 T: 72 QT: 340 QTc: 395 Interpretive Statements 1100 Sinus rhythm 1102 Sinus arrhythmia 2420 RSR (QR) in lead V1/V2, consistent with right ventricular conduction delay [address] depression [address] & Twave abnormality 9150 abnormal ECG Compared to ECG 05/24/2024 00:47:56 ST (T wave) deviation now present Electronically Signed On 03-09-2025 16:49:34 EDT by MARYANN TATE
--- NOTE | 2025-03-08 22:22 | XR_ITS ---
The [address] [address] Patient Name: POORNIMA RIVERA MRN: [id number] date: 1975 Sex: F Assigned Patient Location: ER Current Patient Location: [place] Accession/Order Number: [id number] Exam Date: 03/08/2025 22:25 Report Date: 03/09/2025 08:55 At the request of: GERMAINE MCCRACKEN MD Procedure: XR chest 1V PORTABLE AP ERECT CHEST 2012 hours CLINICAL HISTORY: Left upper chest pain and shortness of breath COMPARISON: 05/24/2024 The heart still appears slightly prominent. There is no vascular congestion. No developing consolidation is seen. There is no effusion or pneumothorax. The osseous structures are intact. Ventriculoperitoneal shunt tubing traverses the medial right chest wall. XR/XR chest 1V IMPRESSION: NO ACUTE FINDINGS Impression dictated by: Ela Campa M.D. 03/09/2025 8:55 AM Dictation Location: [facility] Electronically authenticated by: [id number] Y Date: 03/09/2025 08:55
--- NOTE | 2025-03-08 22:23 | ED.CHESTPAI1 ---
HPI - Chest Pain General Chief Complaint: Chest Pain Stated Complaint: Chest Pain Time Seen by Provider: 03/08/25 22:19 Source: patient and family Mode of arrival: Wheelchair History of Present Illness HPI narrative: states she was in the shower and felt weak. Developed chest pain and legs felt wobbly. Symptoms started about 45 min ago. Pain radiates to left jaw. pain 7/10. Nausea has improved. No history of heart disease. Does smoke cigarettes. Related Data Home Medications ?Medication ?Instructions ?Recorded ?Confirmed escitalopram oxalate 10 mg tablet 20 mg PO DAILY 05/24/24 05/24/24 pantoprazole 40 mg tablet,delayed 40 mg PO DAILY 05/24/24 05/24/24 release trazodone 100 mg tablet 100 mg PO DAILY 05/24/24 05/24/24 buspirone 5 mg tablet mg 03/09/25 escitalopram oxalate 20 mg tablet mg 03/09/25 trazodone 150 mg tablet mg 03/09/25 Allergies Allergy/AdvReac Type Severity Reaction Status Date / Time Sulfa (Sulfonamide Allergy Severe Unknown Verified 05/24/24 00:39 Antibiotics) Review of Systems ROS Status of ROS 10 or more systems reviewed and unremarkable except as noted in history and below PFSH PFSH Social History Little interest or pleasure in doing things: not at all Feeling down, depressed, or hopeless: not at all Exam Constitutional Vital Signs, click to edit/add: Last Vital Signs Pulse 66 03/09/25 01:25 Resp 17 03/09/25 01:25 BP 101/70 03/09/25 01:25 Pulse Ox 95 03/09/25 01:25 O2 Del Method Room Air 03/08/25 22:11 Common normals: no apparent distress, average body habitus, oriented x3, no limitations, healthy appearing, alert and well nourished [facility] Common normals: normocephalic and head/scalp atraumatic Eye Common normals: PERRL and EOMs intact bilaterally Respiratory Common normals: normal respiratory effort, no retractions, no use of accessory muscles and clear to auscultation bilaterally Cardio Common normals: regular rate, regular rhythm, S1 normal heart sound and S2 normal heart sound GI Common normals: Normal to inspection, nondistended, normoactive bowel sounds present, soft to palpation and non-tender Extremity Common normals: normal to inspection and full ROM Neuro Common normals: oriented x3, CN's II-XII intact bilaterally, moves all extremities and no focal motor deficits Psych Appearance: grossly normal Course Vital Signs Vital signs: Vital Signs Pulse Rate 90 03/08/25 22:00 Respiratory Rate 31 H 03/08/25 22:00 Pulse Rate 66 03/09/25 01:25 Respiratory Rate 17 03/09/25 01:25 Blood Pressure 101/70 03/09/25 01:25 Pulse Oximetry 95 03/09/25 01:25 Oxygen Delivery Method Room Air 03/08/25 22:11 MDM - Chest Pain MDM Narrative Medical decision making narrative: patient presents with acute onset of chest pain radiating to her left jaw. EKG NSR with nonspecific T wave inversion precordial leads. Pain improved after NTG SL. d-dimer positive and CTA chest ordered CTA neg for PE. demonstrates mildly enlarged heart. Serial troponin neg. Discussed with the hospitalist and patient accepted for admission Lab Data Labs: Lab Results 03/08/25 03/09/25 Range/Units 22:00 00:25 WBC 13.0 H (4.0-11.0) 10^3/uL RBC 4.38 (4.20-5.40) 10^6/uL Hgb 12.8 (12.0-16.0) g/dL Hct 38.3 (36.0-48.0) % MCV 87.4 (81.0-99.0) fL MCH 29.2 (26.7-34.0) pg MCHC 33.4 (29.9-35.2) g/dL RDW 13.3 (11.0-15.0) % Plt Count 353 (150-450) 10^3/uL MPV 9.5 (9.5-13.5) fL Neut % (Auto) 68.9 (43.0-75.0) % Lymph % (Auto) 21.7 (20.5-60.0) % [place] % (Auto) 6.0 (1.7-12.0) % Eos % (Auto) 2.2 (0.9-7.0) % Baso % (Auto) 0.7 (0.2-2.0) % Neut # (Auto) 9.0 H (1.4-6.5) 10^3/uL Lymph # (Auto) 2.8 (1.2-3.8) 10^3/uL [place] # (Auto) 0.8 (0.3-0.8) 10^3/uL Eos # (Auto) 0.3 (0.0-0.7) 10^3/uL Baso # (Auto) 0.1 (0.0-0.1) 10^3/uL Abs Immat Gran (auto) 0.06 H (0.00-0.03) 10^3/uL Imm/Tot Granulo (auto) 0.5 (0.0-0.5) % D-Dimer 0.63 H* (<=0.59) mg/L FEU Sodium 145 (136-145) mmol/L Potassium 3.7 (3.5-5.1) mmol/L Chloride 109 H (98-107) mmol/L Carbon Dioxide 21.0 (21.0-32.0) mmol/L Anion Gap 18.7 BUN 16.0 (7.0-18.0) mg/dL Creatinine 1.15 H (0.55-1.02) mg/dL Est GFR ( Amer) >60 (>=60 mL/min/1.73m^2) Est GFR (Non-Af Amer) 50 L (>=60 mL/min/1.73m^2) BUN/Creatinine Ratio 13.9 Glucose 129 H (74-106) mg/dL Calcium 8.8 (8.5-10.1) mg/dL Troponin I High Sens <4.0 L <4.0 L (4.0-51.3) pg/mL NT-Pro-B Natriuret Pep 63.0 (<=900.0) pg/mL Discharge Plan Discharge Chief Complaint: Chest Pain Clinical Impression: Chest pain Patient Disposition: Admitted as Observation
[2025-03-08] MEDS: NITROGLYCERIN 0.4 MG BOTTLE PO (22:28)
[2025-03-08 22:29] LABS: Hematocrit 38.3 % (36.0-48.0); Hemoglobin 12.8 g/dL (12.0-16.0); Immature Granulocytes Abs Auto 0.06 10^3/uL (0.00-0.03); Immature Granulocytes Pct Auto 0.5 % (0.0-0.5); Lymphocytes Absolute Auto 2.8 10^3/uL (1.2-3.8); Mean Corpuscular HGB Conc 33.4 g/dL (29.9-35.2); Mean Corpuscular Hemoglobin 29.2 pg (26.7-34.0); Mean Corpuscular Volume 87.4 fL (81.0-99.0); Platelet Count 353 10^3/uL (150-450); Red Blood Count 4.38 10^6/uL (4.20-5.40); White Blood Count 13.0 10^3/uL (4.0-11.0)
[2025-03-08] MEDS: 0.9 % SODIUM CHLORIDE 1,000 ML 999 ML IV (22:29)
[2025-03-08 22:53] LABS: Anion Gap 18.7; Blood Urea Nitrogen 16.0 mg/dL (7.0-18.0); Calcium 8.8 mg/dL (8.5-10.1); Carbon Dioxide 21.0 mmol/L (21.0-32.0); Chloride 109 mmol/L (98-107); Estimated GFR (African America >60 (>=60 mL/min/1.73m^2); Estimated GFR (Non-African Ame 50 (>=60 mL/min/1.73m^2); Glucose 129 mg/dL (74-106); NT Pro B Type Natriuretic Pept 63.0 pg/mL (<=900.0); Potassium 3.7 mmol/L (3.5-5.1); Sodium 145 mmol/L (136-145)
[2025-03-09] VITALS (36 sets, daily range): BP systolic 90–115; BP diastolic 59–74; PULSE 54–105; TEMP 36.4–36.9; O2SAT 93–99; BMI 35.8
[2025-03-09] MEDS: IBUPROFEN 400 MG TABLET 800 MG PO (01:58)
--- OUTSIDE RECORDS SUMMARY | 2025-03-09 02:06 | XMS_ITS | CCD ---
Author Organization [facility] Care Team Providers Care Blueberry Grower Name Role Phone Seb Bobo Unavailable DINESH BOBO Primary Care Physician [phone] [place], DR DINESH Franco Admitting Unavailable BOBO, [...] Unavailable Hitesh, Reza A Admitting Unavailable Reza Protcor A Attending Unavailable Reza Proctor A Referring Unavailable Reza Proctor Admitting Unavailable MD Dinesh Bobo Primary Care Provider DO Imelda Jiang Attending Provider [phone] MD Dinesh Bobo Primary Care Provider DO Imelda Jiang Attending Provider Dinesh Bobo MD Primary Care Provider VAN HERNANDEZ Attending Unavailable Dinesh Bobo MD Primary Care Provider Ly DO, Imelda L Attending Provider Ly, Imelda L Attending Unavailable [...] Attending Provider Dinesh Bobo MD Attending Provider [phone] Tayla Vargas CMA Attending Provider Unavailabl Dinesh Garcia MD Primary Care Provider [phone] Ly DOImelda Attending Provider Dinesh Bobo MD Attending Provider Dinesh Bobo MD Primary Care Provider Jaylin Carrero APRN Attending Provider Allergies Allergy Classification Reported Allergen(s) Allergy Type Date of Onset Reaction(s) Facility (20 sources) Sulfanilamide; Translations: [SULFANILAMIDE] Drug Allergy 12-20-19 23 [facility] (4 sources) Sulfonamides (Antibiotic); Translations: [sulfa drugs] Drug allergy Respiratory failure [facility] (1 source) Sulfonamides (Antibiotic) Drug allergy (disorder) 12-03-19 13 [facility] (19 sources) cefdinir Drug Allergy 09-07-19 24 Unknown, [facility] (2 sources) Amoxicillin Drug Allergy 01-12-20 07 AMOXICILLIN [facility] (2 sources) Pseudoephedrine Drug Allergy Unknown [facility] (16 sources) sulfADIAZINE Drug Allergy 09-07-19 24 Comment:[facility] (2 sources) Substance with sulfonamide structure and antibacterial mechanism of action (substance) Drug allergy 01-12-20 07 SULFA [facility] Other (2 sources) Allergies Reconciled Propensity to adverse reactions Unknown [facility] (2 sources) patient allergy list reviewed by nurse or physicia Propensity to adverse reactions 01-16-20 19 Comment:Done [facility] Other (2 sources) 12 Hour Decongestant Allergy to substance 09-05-19 [facility] (1 source) cefdinir Drug Allergy 10-15-19 [facility] Repository (1 source) sulfADIAZINE Drug Allergy 10-15-19 [facility] Repository Medications Current Medications Medication Drug Class(es) Dates Sig (Normalized) Sig (Original) [id number] 200 actuat albuterol 0.09 mg/actuat metered dose [...] constipation, # 20 cap(s), Refills(s) 0, Pharmacy: [facility] 1155, 163, cm, 08/09/22 5:10:00 EST, [...] Status: Ordered take 1 capsule by mo [facility] every twenty-four hours NexIUM 24HR 20 MG [...] sources) Start: 12-19-2024 take 1 tablet by mesreet th once daily Start: 12-19-2024 take 1 [...] tablet (2 sources) Opioid Agonist Start: 08-18-2022 [place] 325 mg-5 mg oral tablet See Instructions, [...] Range Facility CT enterographyon 11-07-2024 CT enterography [facility] [place] [address] CT Scan Report Signed Patient: Poornima Barker MR#: [id number] 745 : 1975 Acct:[id number] Age/Sex: 49 / F ADM Date: 11/07/24 Loc: CT Room: Type: [facility] Attending Dr: Imelda Jiang DO Copies [...] unremarkable. Uterus has been removed.] Peritoneum/Retroperiton eum:The INSTRUMENT LENS GENERATOR shunt tubing is seen coiled within the pelvis. Trace free fluid seen within the pelvis. No free air or lymphadenopathy.[ Abd wall/Bones:No acute findings. Osseous structures demonstrate degenerative change. No sacroiliitis.[ CT/CT enterography IMPRESSION: No CT evidence of small bowel abnormality. Hepatic steatosis. Impression dictated by: Oscar Roper Jr., D.O. 11/07/2024 10:07 AM Dictation Location: [place] [address] Transcribed By: [facility] 11/07/24 1007 Dictated By: Oscar Roper Jr, DO 11/07/24 1005 Signed By: 11/07/24 1007 Normal [facility] Calprotectin [Mass/mass] in StoolOrdered By: Imelda Jiang on 10-03-2024 Calprotectin (Stl) [Mass/Mass] Calprotectin [Mass/mass] in Stool 0-120 [facility] Comment on above: Concentration Interp retation Follow-Up< 5 - 50 ug/g Normal None>50 -120 ug/g Borderline Re-evaluate in 4-6 weeks >120 ug/g Abnormal Repeat as clinically indicatedPerformed at: - [facility] [id number] Director: Dasha Lowery MD, Phone: [phone] Calprotectin (Stl) [Mass/Mass] 65 ug/g 0-120 [facility] Comment on above: Concentration Interp retation Follow-Up< 5 - 50 ug/g Normal None>50 -120 ug/g Borderline Re-evaluate in 4-6 weeks >120 ug/g Abnormal Repeat as clinically indicatedPerformed at: - [facility] [id number] Director: Dasha Lowery MD, Phone: [phone] Calprotectin, Fecalon 2024 Calprotectin, Fecal 65 Normal 0-120 [facility] Comment on above: Result Comment: Conc entration Interpretation Follow-Up < 5 - 50 ug/g Normal None >50 -120 ug/g Borderline Re-evaluate in 4-6 weeks >120 ug/g Abnormal Repeat as clinically indicated Performed at: [facility] [address] [place] [id number] Compound Worker: Dasha Lowery MD, Phone: [phone] PERFORMED BY: [facility] [address] [place] [address] PATHOLOGIST MANAGER INTERNATIONAL RODNEY QUEZADA M.D. Performed By: #### C ALPROTECT #### [facility] , Laboratory - Chemistry and C hemistry - challengeon 07-26-2024 TSH Qn 1.781 m[IU]/L 0.358-3.740 [facility] Office Visiton 07-25-2024 Follow-up visit [id number] Chanda Barker 1975 F Date Provider Department Center 07/25/2024 [id number] HERNANDEZ Family History Problem Relation Age of Onset Coronary artery disease Mother Stroke Father Family Status - Relation Status Age at Mother Father Level of Service:79414 [place] OFFICE/OUTPATIENT NEW MODERATE MDM 45 MINUTES Reason for Visit and Comments: Syncope [506] - Had syncopal episode back in Apr 2024. Echo was performed a few weeks ago. She did not feel chest pain, SOB, or palpitations. Dizziness [876002] Normal [facility] Pancreatic Elastase, Stoolon 03-28-2024 Pancreatic Elastase, Stool 612 Normal >200 [facility] Comment on above: Result Comment: Resu lt Units: ug Elast./g Severe Pancreatic Insufficiency: <100 Moderate Pancreatic Insufficiency: 100 - 200 Normal: >200 Performed at: [facility] [address] [id number] Compound Worker: Dasha Lowery MD, Phone: [phone] PERFORMED BY: [place] [address] PATHOLOGIST MANAGER INTERNATIONAL SHAW ANGELO M.D. Performed By: #### E LASTASE STOOL #### [facility] , XR KUBon 03-28-2024 XR KUB [facility] Main [address] [address] XRay Report Signed Patient: Poornima Barker MR#: [id number] 745 : 1975 Acct:[id number] Age/Sex: 48 / F ADM Date: 03/28/24 Loc: XD Room: Type: [facility] Attending Dr: Imelda Jiang DO Copies [...] II, MD 03/28/241131 Signed By: 03/28/241136 Normal [facility] Huseyin 01-07-2024 L Specimen: [id number] Received: 01/07/24 Status: RACHEL Polanco Num: [id number] Spec Type: Surgical Subm Dr: Imelda Jiang DO Tissues: A Colon Biopsy (RANDOM COLON BX R/O MICROSCO) Procedures: HE/2, Gross/Micro L4 Age/ Patient Sex Location Account Attending Physician Poornima Barker 48/F [id number] Imelda Jiang DO SPEC NUM: [id number] RECD: 01/07/24 STATUS: RACHEL POLANCO NUM: [id number] IDALIA: 01/07/[address]: Imelda Jiang DO ENTERED: 01/07/[address] [facility] [address]: SPEC TYPE: Surgical DEPT: S ORDERED: [...] cm, entirely submitted in A1. CPT Codes 32555 Specimen: [id number] Received: 01/07/24 Status: RACHEL Polanco Num: [id number] Spec Type: Surgical Subm Dr: Imelda Jiang DO Tissues: A Colon Biopsy (RANDOM COLON BX R/O MICROSCO) Procedures: HE/2, Gross/Micro L4 Patient: LuceroPoornima Devi [id number] (Continued) Signed (signature on file) Jeremiah Potts MD 01/09/24 1542 Normal [facility] Elastase.pancreatic [Mass/ma ss] in Stoolon 11-07-2023 Elastase.pancreatic (Stl) [Mass/Mass] 232 >200 [facility] Comment on above: Result Units: ug [address] st./g Severe Pancreatic Insufficiency: <100 Moderate Pancreatic Insufficiency: 100 - 200 Normal: >200Performed at: [address] [id number] Director: Dasha Lowery MD, Phone: [phone] No Panel Informationon 11-06 Clostridium difficile (PCR)(LAB) Negative NEGATIVE [facility] Miscellaneous Test Comment See comment [facility] Comment on above: Specimen Source: ST - Stool - Stool - 700.100 Stool Campylobacter Culture Res 1 See comment [facility] Comment on above: [facility], No Panel InformationOrdered By: Dinesh Bobo on 11-07-2023 E coli Shiga Toxin EIA [facility] Salmonella/Shigella Screen [facility] Nonvisit Note - OTon 023 Nonvisit Note - OT , pt cxl'd in remind system, no reason available. Normal [facility] Nonvisit Note - OTon 023 Nonvisit Note - OT pt cxl'd in remind system, no reason available. Normal [facility] Nonvisit Note - OTon 023 Nonvisit Note - OT Pt. cx, d/t an emergency. [facility] OT - Home Exercise Programon 11-08-2022 OT - Home Exercise Program [id number]#1.00 CD:127 [facility] OT - Progress Noteson 2022 OT - Progress Notes [id number] [id number]#1.00 CD:127 [facility] OT - [place]erson 10-20-2022 OT - Orders [id number] [id number]#1.00 CD:127 [facility] OT - Assessmentson OT - Assessments [id number]#1.00C D:127 [facility] OT - Consentson 10-19-2022 OT - Consents [id number]#1.00C D:127 [facility] OT - Home Exercise Programon 10-19-2022 OT - Home Exercise Program [id number]#1.00C D:127 [facility] Coding Summary.on 10-12-2022 Coding Summary. CD:[id number] Ww+ PGhlYWQ+UM0KRQMkP16ljCW xxE3lN7APAOrZRgyjBXYKHW cAWeIxpeUhTC2kdYOyHEXj IC8+KK1zOIVfBrueqJWvp8M 5oVA4I18aem2nLClvwDG8XG OkTtGxzwdpr9znyCh9JMynT mluOyBt JHNqhG14MKH7nX71Fz98kYS ndUKzo6bmoBr5QaDkZJQnRC T8kKbtKCrhd2TcPLSpK63dz JRmf5D6 GNVubThpoAJeEqWagXI0qT3 wNKmcwumqp7ybdtimPzu9ck 29iDZga1W8rKU9V0AjbkP0F GJvbGQg LvpcoUEFtA6qypdlc6dltgu jLnFxXEPuLJp4FJp2NAUygG uxRwIyLE08TWA2IEZpfdZiM 2FsLWFs uDfjVoM0q7X7Vm5MC6JIHwa zU3HXGUCEVKsyuPT+PC90cj 77S0FjTpupQoc6VFDnSGB8r CO6tV3f BWWhLKxqe1D1pHP7O4IzmjZ eim3pv3jqZRFrDXfpJ66ukB Sya6K7MRRilGX0FKXzpQcnC iBzaG93 Oyc+QMPdmQfew4ToOxluo1j zi5njpIj8TzvyGFFfgcJknX zuWUX0e7BiHl4aBFAuwBM1c TA4hU6u QfZhLzS5MUmhW935KwKakZF cZxfuK85wS3DkvYZ+PHRyPj i3KMJdyAtxCG3eW0LbYBZvn mctbGVm kEzrXP2lXEUnjbsjSLKixR4 tENAuZ2r6PdWbPzS8XDigJ8 ElKIVprmjmAq60gB3aMqVpM pI3QDsc E6GcptK9KDHesDLsEQquKBO 9P54eg6X7KZXcZTQaVBD8jQ O5wG3rxGlzjqzqqTFbyAzsb mVydGlj CAjnPNrcK689SLMitRbmQeH vZGluZyBEYXRlOiAgMDQvMj AvMjAyMzwvdGQ+YIOzLCP9v WxlPSAn dNMqWMboXf8geVuogYutRC1 rKHTiujqbJWQgrB9bIXZteN EelSwcSV7zBPSmsscij415T iAxMHB0 JMWjqCEyJ7VjhE2eIhUfSLX nOOHbH0WlaMAfGJavA472JZ xzMfY4ETLaroXvL4LtTUAns WduOiB0 q3H2Zq3My0JheowgL4AmwVZ xNpSkKdncCUy7H5GlYrrjpY I+EI61ZSWoXL27HFp4UYK9x WxlPSdi KKIlG0AzjZ3cNfXdCSAiCTC kOyc+PHRhYmxlIHdpZHRoPS plMODuUxUkbPqjEZ1aVq0fW GVyLWNv pZovhTMnUnQie8hhFZAxIFy zMP1juNffE4NpaGY5WWXpe5 a5Zu51H04sY1HavBO+PGNvb UW4bZI4 nS4tVjGpAoA0MGynN956PcC ovULhOxgfs4hgr0bcxNx4Zd N4ABUravEceRwwTDQ1v8DiW r68Z71b IHdpZHRoPSIxNSUiIHZhbGl hpw2kmP4eGn1+PQUyfFN6jK M3kF7gVsYdPiU7ACnzJ398L nRvcCIv Okjqp6bec6gupHc5XsIwXTW xihQnqBrhNGL7y2GnTo13L7 SwkCfll7GmQis8ox99oCNoa 5U0gRB3 U7JkTTAzdggvdSJqrKjyBW6 eFTPwhrknCSSvuH2yNFLdK4 p0XdKwZeG6CCqxC2VcqyC6Z GJvbGQg ZHCjoAWRwD6vkhhiy0swmiu sIyJfTFArSYl3YGe7OGRzqH peXmDgXEI5NcO3FDG6iJDmh I9bsUxg mvzkaO2dXjl+LYK4uYLmuVH ADG0oUjaxsJY+XSNyMOY5xU vtLYioYWGzfS1bXOXlD9h9U iAwLjA1 VKqnP4ZvzsN7DJGfmHGzAIL vtHQCjH1ghrbrc6qokwrlMx UjXHEqTZl7WTb6MHYvpChgM iBsZWZ0 ImN2AKY8rNDsaQ4sdPrmqjp bjU1gXtw+LxtepYgmRWC1UT b1Y9ZaOqn5BPHbrYvgBE4mg GFkZGlu Go7xaMfrhEbeTN2jIIVodli ui435DpVsp5ntNHDfgKAzQB bhLHV4Z89ki7H6LTItCGErD HO4yMH3 qB2ubTpnmxvngGRlyXhxypI ozYclDVvuNMfsZ147SSAnfA npSrTwMFs2F8CeYhw6AHWvd PcgWO7v uUKzJUquKm2rxEtjnMmbOX5 nIRTinidrs621JsFnm8hsAV WhxFMiBPspZDO4N19ep3H5Q CMwMDAw TPN0qQX7xE7koBhbzhsenWX mdDsgdmVydGljYWwtYWxpZ2 38YNQieAxyKdZfbFg9Y1GyC ie3NEFh wOkuXP5dhFQlEReeQr8omQs waBbkIZ0fRLGgjcfcc205Xz Vxr1nrJLWyoQUuWOrfAZD3P 13je4F4 JNJaSYZjLNJ7iSO4aA6urWg nbjogbGVmdDsgdmVydGljYW rfPPhrS230TGZiqLomSrZvj GllbnQg CKywWWn2U6ZqXxxdaMQ+PC9 2KDXdXN28lRExjHZwr7zwzI n3OyPqZVKuTIL1vFzpVKyxl 3JkZXIt L98vfXLpx5X3MAOmkMiqwEO uHpXxcAB5pW9kYGzfbgxqs8 mivsrzYtgrn4wsmw23tI90S 29sIHdp ZHRoPSIzMCUiIHZhbGlnbj0 maH2aYl1+ZPSchBR9yTP5gL 1eBLXsQxO5LHdlS989CpMzw CIvPjxj u9vgj9tswRh1BqW7QJBiyjR ckXrsCGN4a2DhIs92X99pKN dpZHRoPSIyMCUiIHZhbGlnb x9jcK5o Ii8+TWEakNF0hFB6jX6vEyZ iYlG8XZngW119GoQsuFHmBw scY78aF2BuhQM+SIDqZkl2K CBzdHls HY2siIZgQMmpIk8aGZW2JgK pFqNdSLixC6RlSSDragezuf jkmFK1ZLGgUTYfnS96Dk9lg DogMTBw yQERpO0cypbqq6jhnaqoJqY mYJEaAHf4CIk8JMUqdUafHy KfMLD6CcW6HOQ7mEHhfR4um Glnbjog jM1zU3PcSQEnosveUk11pA3 eUrWuUmQ6WZknZiu+VkVJVE myFIFIMMLPLTm2N6WvNfc1Q CBzdHls XD9ytDXeOEfuUz7otNxptWi zXX8vUXCyuselVSPmfA8qPD QwcYBbtCksVP0mNMVwzkthd 250OiAx OVG2RSQymIVtQ9WbuW9dFoD pARJfJWKjI4KouGWuGFxjL6 06IUdrDtU2DTBfcvUhX9YoJ WFsaWdu QrO7d1T0Yn2xWu6gTI6eZKj 5OT40JB65oIYbs0C5pDV0P6 EkPFPaoxkvmzszpMV5WMGjQ DUwaW47 wMIoPRgwQc0od5R4z529TPA gOELtvN60Nz8ufCgyWGSgsG SBeY4zyjumw5xemyjuCoLrX DAwMDt0 DKt0DFHbmMtxIcCxHMN9OpV 3KMV4jXMsoC2icEakrqajgQ 9wOyc+XDwnZTHzhcX4M0YsX yw0EDBw kYvlUL1yiAGjPKqbKl5weIb ljTjrKP3qSUNihgajEPKbaC 4zXGQlaDHjcTviQT4nWGNxr dadc138 DqPyOMS3ELErsZHaO2SraI6 eOtEtRTYlLQAzX3FsoFNtFH dmM146YNptJaN4CXZdfkHsS 2FsLWFs wKnmSuU8k4J8Gd0PTM7jeFY 1J9ZoIyh6EWFrfNylHL0wtT IdSHuaKx9jrQpyzVbcDN5bC TBpbjtw LYYfjA8pMKMkmNVgfSdrKK1 pUINoifyzu120ZbDcIPN5MA ZilIIxP2JyjH8mSgSgFSCfB MCrB9Xi uBYdFRteY082EOqtXaF6GYE vliJpJ3WkLYYmyYddJcH7z8 H8El6VMOS6meNqpsp3Q7VzE jwvdHI+ PT62LDOdAD26zOPsfNEds3t knPx7ZuXfAOXrSBS7fWrxQB kam2LlAURzV10lcQCdc2V9O GNvbGxh iVDbVwJioRC7fJ7kZAqaebi qz9auwrnqTwsuw5zefq15fU 46G41yKOvvHVXfRLBiIDNyY HZhbGln mb6mgB7vBs2+MOYqhMV0pHC 3dM9vYrXrIgE5AXwcS779Nk GuyHClIesxz8kxr1gbsPp3F jIwJSIg efAykNkoEGR8c0QhSg66F75 sIHdpZHRoPSIyMCUiIHZhbG mvjl9lxI9lNn5+MH3nh9nxy p22aD73 dHI+IIKqTZH9nJfiNIjoFTI hrR5xJIgmZhV0ZUQzXnOalA 28oWSgCRzqNw7zsAkwyPdxG J9zKPVj rwfix633MmItk3rsKEGtaPC fULpsIXX8S79vp7K3NACtWL VnKDT7dXR4pC9qdVdalsfiw GVmdDsg srCwkWnjRWhuOJywS781OKM gkHxvCaBjnBGpQ8hyzwBYAK 1lOjwvdGQ+QFPkBLQ4nWluU SdwYWRk eU6jXXUeU9g9QzImVbU7ZYv kX1LueyS6RECvdIErPCXaoA PUhJ0jdaomh9ssxsjzBwLxU DAwMDt0 WMj2DTFheZtjWmJeHCS7FmA 2ASX8gTOfsN6bhDznejdllE 9wOyc+RklOOjwvdGQ+PHRkI DG3pImc DGdmMBOpsM5tVZZpQ1q8UwW nXmE1CGknN8PtagK1GFBocR ZpIMAqvMKWtY4mdtojp1rwp jogIzAw WCMlDUd0MGd5EKObhNatOtS lJKT2VtF6XJH0cIDlzZ2ilO dfhudxjA3gJqt+TVJOOjwvd GQ+PHRk GMI0rYdiGWmlANLuoJ7iQTV vF2t0StFuXgD9CTjqV0Vxxq D9KVOomLOzTVDbbOAKqM5lu xyqt5zh brudFqUcJNKbXJi8YOg2MWW rwKtsWuGzUOM2FnX8RZV5iC JgcQ1lvTurtrvlhE2wIgn+U YR6JGF4 NA43SL03S7AeKuygeSMnyQO +PHRhYmxlIHdpZHRoPScxMD GoIuBauAfoHP9jGq4dGXDlB WNvbGxh cHNlOiBj (more content not included)... [facility] Consent for Treatmenton 09-23 Consent for Treatment [id number]#1.00C D:127 [facility] OT - [place]erson 10-11-2022 OT - Orders [id number]#1.00C D:127 [facility] PT - [place] 10-11-2022 PT - Orders [id number]#1.00 CD:127 [facility] Comment on above: Other Comment: ot... not pt IntraOperative Documentson 0 08-31-2022 IntraOperative Documents [id number]#1.00C D:127 [facility] Coding Summary.on 08-30-2022 Coding Summary. CD:[id number] Gh0 bWw+PGhlYWQ+VQ4USQLqD14 rdUPiyU4lM2ILNMqRJbxgLS ZQFIwEYcTxwkVsPA3hjCQeQ XJu IC8+JV0jXFGlVmjoxIQky7L 7kIY8H21bdm0rCKqwnSG7WL FfYhXmcvmvg8hpqQb5WYcjJ mluOyBt LJCifV93FTV1nL16Uw40rXH ftKAbm7zbuNw7PsYcMGJlHC N1oMzaUEhgk5NjSFKjK33bx DLwo9F8 ZNGkpDwebXSyYkQizSC2eM8 xNIbyhgtwm9zyfojxLjn8vb 73iPPyi9U0qCQ5E8JmcjL4M GJvbGQg PsptvREGhP6xsqcff7bozhw dOlKwBWDzHKj4RYd2WRDueF fnSjRaKK32AOG7RXRspnQjO 2FsLWFs qBtfVxN9u8E6Pe6IP6QAToy nI8RCNCNMOAmbqUE+PC90cj 56S1AuZqluVth0JLKmDPO6b ZS2yQ0z QMNyCUcwi1G4dTS0Y6MvreP iir3ki5wpHMMxXZczP46ekD Boo9P6BFNzaYD4NXAwqFbuW iBzaG93 Oyc+EZHalQfmx7RjYnury7r gj5xscZp1PymyNZZpiqMvaM mdHXF2y7RySs9kILDklUJ4z VB2nX6r BzWjQsB5IOkuL577GlBafPC wPbwnH42tH2KyjII+PHRyPj n0IWNnxIynIL9uD9VdOVSnv mctbGVm mWmbSG8zRZDqrqjvAXZzcC3 oMANgT8v9BpEpBgV3BFmmE6 WrGTRimsgdLe16qR4nDxLrN wS3USgt W5BegmD5YSCrrVReUErlBYK 3Y19mb5K6QKXrAPVlZOE3nG H0hV9dwYtiqridlEBnbWjvx mVydGlj GJlbRFmcB896STOipDskXxO vZGluZyBEYXRlOiAgMDMvMD gvMjAyMzwvdGQ+LNJbEGS4f WxlPSAn wHMsKYuaQf9twGyrkHeeRI4 mJEVxczlxMPSeyI3iCTNfyO UtaQwoLE5dGUFcqlump439V iAxMHB0 GSKrwFLjR0FnvX3bOaEpMLJ hQVMoU4ZdnLBoRCecL569OL yxXwP9GAWweaCwX2TbLHQuv WduOiB0 y6S0Mi4Pf1XntlyrI1WnrZV oJxVzTvqpZVn9S9CoTkjnyA I+XS15IOSfAI09EKr3VPB2p WxlPSdi MVNbS1JpjJ3bImSvUIOnSOP kOyc+PHRhYmxlIHdpZHRoPS geYDXwTsIxwGvxBO9zIw8aY GVyLWNv rMhntVAbHnSqz1xbNOPxGYd eNU0ddEkqN4ZkjZP0GMXwd3 y5Fv79Q25pP2VjyGA+PGNvb WK9dAF1 yH0oAqHkNoX9MQobG214WnX ssJAyCydam6hbx3yxqZl7Ub D4CVCmsbFopFrfMVT8s8KbG f96U58t IHdpZHRoPSIxNSUiIHZhbGl gmk5rbM5wYf6+ZLKbgPM5iT J8jD1iZxMaYkZ2HLvoF001Y nRvcCIv Zbzxp4tkq7qxaUt5NuQfKTB ugjZfvUbkJYO5d7XcUc66M4 JfiTtwr9QoEwy7bb61aSJea 8Q2lHT0 S7HmKMKxyyccrHVinRibJP2 fTLKqhmhxKFBqrU7hDSUcI0 b0HoOjIzN2QTxlW1GzzeA8J GJvbGQg KEGrqOUAaU3birfqr8jiidr tDuZaXHGeCLi2JCy3OLHfiO vbPgPjPVR7MbJ3ATK1bCNjt C7bwFxb vqsskR8iFxt+MEZ2nHBujFH JED7mFumzwQI+SALjZHD7vJ dzNMvdELEyeS6cLCUjI9j1I iAwLjA1 MSleT9QzguG1PQYipSXhJFS xrIXMeP9yvvkdy5lqmsjuIn LyRGYgOLi9WAl0OPUhcIzoJ iBsZWZ0 KnQ1HUH7uJLzuI2raSbxupi ynX8lZts+YiaeoRobYDG5AY m1D4AoHgr9AZAumBcxPZ8gl GFkZGlu Oy6xqYckbWzmHJ3iIYMjyib xl395RyDqa4rpDZVmtHEsCL hmEGS6U63nm9E9FPYaOKErK MI1sWE1 wQ8qaAtldzcueIDkuJcvfcO fcRibNHloRGdzQ766EPUuiQ rrVhDyNAs0L3EpLqg0KGLhr LymMT5p iFEdAQklTi9gsJtcaCbgKE9 gMJAlsxnso378QnOml2tkAM VpqIWoELaoWWL3S78rw9Q8D CMwMDAw HYF7lAI8mD6taDxfwvhezGF mdDsgdmVydGljYWwtYWxpZ2 44SCQewTudTnAirXe9Q8OxE vj5SVDy yEogSJ1iiMXsSAnlDd3gsHh zqLfrPB5hZTLmwmcwk539Av Leh1loAABsaCGqDAjtCJM2I 22an0B3 IXNeGSKdLGT2yRI7eS2oyLk nbjogbGVmdDsgdmVydGljYW afIRumE630BOZuhQatUgJaa GllbnQg FWdqGDn3W7PrJfzqkQQ+PC9 3KYYfOC08jGFyfHUmd3nluQ u9EqDgQBHpYXA7iVuyLRkzx 3JkZXIt C61osQLvl3A5KMGjxJcxfDI cEmBheWX1bV2yWGqqkqohk7 srwiyhBgngo4clec38cH67J 29sIHdp ZHRoPSIzMCUiIHZhbGlnbj0 brY8oCc8+BCLhfRA5aIX6pS 1sFETcRfI5HMdgC355JbFuz CIvPjxj a8itb6lpcSm4SlN9QJCeydO dqFkjMGW7y4RjMq53K86aLU dpZHRoPSIyMCUiIHZhbGlnb e4fjW6f Ii8+NWAxmEW1aUN6iP8hGzS pYsO2HTanI396PoJhnWOaPy juX86dV5FveML+QOZdBxf7T CBzdHls GG9uiPToNLrhTp4pETA7JeL rLmTxFBedA1KsOJMxnfbdpz ydaLX1XCDdZXJbgQ30Kr8ky DogMTBw fGHJsI1kbpqli1aizrltHeG yUVHmDEi2MNz9CZXtqMnnCo EjLAB3DiR2QGT1yMTkuS7uf Glnbjog pR2nQ0KpXQBxqjahTm11wU6 rNeYaBvS1KCgjCmi+VkVJVE zbWVHHZXZJOEg8D7BcNbe1S CBzdHls VM5uwLAdGIepZf3sjZcuaGl aAE0wXGExpdocDEPhbU5aNE CnxTWphGocFC4wHUVzrgdfb 250OiAx OJP0EJAjeOPuL7HqxB6wPaM lSLVyIOOaN9McbPVzWBxyD9 77LMjtDlX4BNImuiFyO8QcC WFsaWdu LnH8u3R5Qj2qBa2hDL0tHGm 2HH39JS10kXCte0D4bXU7M6 ExNCXnkfkljinmgOW5IVQzT DUwaW47 ePWiIWejPp6eg0U2g194VTN pHWGgqW38Ot3vuFqhPGCjxR BZuX8iyjnvp6zukebzIgCiO DAwMDt0 VAc6LEAdvCruToKvUIH3RfP 3HXX3iOKavE8eoZiilxammM 9wOyc+XJegXTEqfyW7M6PhL tb9CZNl rExkVW0avLBqKNtvBk3egZd scZgpUE8vCTZvjhgyMMZleQ 4xEDVbvYFajOqfBH8nFVHmt xukm108 AmQxMCY2GOHmqNKkO6NqgC2 zRfRfGBEmIWTaF3RtdRLyNB bjN849PMjbKkA8PIFydrErR 2FsLWFs pNkwLnM7f3D8Jn7VUS2pdUY 5L7WbSps3WFEmyDddXD1fjU MuJIctCs2ebDpfoTmrOI7tC TBpbjtw VEGapP8hAKOcoHCtlZphYY0 uLMJqgjahf930NcKxSXP4HS YdfYQyK0KclQ6pXmQuKAWxO YPmO2Wm uYNnWBdxC729DOklTdQ4CWK oodHoN8IcLFQewBehBfY2q6 H6Op0VhACoTCIhLQ27TF96F H00B5Uz PjwvdGFibGU+PHRhYmxlIHd pZHRoPScxMDAlJyBzdHlsZT 6uLu8yUMKtJKCgxBpbcMQbP aVvr1rs WQGfSYqmWT6fdFfbC0DhqBN 9VWVbz9c4Wt45J96sE1XstD A+PKDwkKK9eVQ5lZ8nKgEuO uM7HQbk C310VvOiuHFnEgkua8znw4e fuSt8VqWwGMBlaqThbEqcPY S1a8EcPl97I17sZWajZPJtR SIyMCUi KGLvmWlnhh6siW5fCn4+PGN vgDW7iDH2kU1hQsXgVtX7PT ntY956JiXicCWcNejvB88xR 3JvdXA+ DEAcXlw8DUAvuCkoYI4hpUU rWZxpZv3nXXF1NsDhOfXmSA xvS7GxGSVekiheeruhvTJ6U DAuMDUw kU42Nb8fpQilLd1wGYNtWDP 0UIPnfOUyV4NozH6sDhGgTO QjIJHmD0JdtOAsZUwkZ464K GxlZnQ7 KTYmcpWaC0MvXDSkqFoaRiF 4p1V1Ew1FxGzzwJAmZG2tFl RkSKs3T5ZbPjb1LBKrvYwzV M4thDBu UNiwUb7uuYmecOusRL6aXGN spicvl377VbUbk6wmTGAimK HwRRieQHZ6N93rp5K9REPxB DAwMDA7 lHI3eC1fjJjtgezcpERbwWl dknXcgAizTRqiFQhsZ556ZB QseNrcYoXTQyq5S1HzJul4N CBzdHls FI8gfXHcQGbyFn5uwTkyxFj tHD4bBZAtiaewz558TdKkz2 ahUFKuhCXkACiqPTT4H26fg 9M0FFPa YXTbCCZ8fAB8xG3veJdslrg gbGVmdDsgdmVydGljYWwtYW fdB305MBNrlGwoZu1OHyr1W 2IqMok6 ZQTdyWmuBH6xyGOcPGonGv7 nlZryxUapDH3aUKYfxzups3 65YdQoi4poLTEnoPGeVHmuN QI5Z20t d7O3DOCoMRLoEHE7yFG5yP1 hbGlnbjogbGVmdDsgdmVydG fwZBirPZmkX501OLGapFxcE lBheWVy OjwvdGQ+QV47oh41F6HmZgb qXef6ECTvRYO5sEI2yK9dKY YlSHwkx9R6qQK7G6OotoXmi a0sa7zn YXBz (more content not included)... Normal [facility] Physician Orderon 08-30-2022 Physician Order [id number] D:127 Normal [facility] Coding Summary.on 08-21-2022 Coding Summary. CD:[id number]:[id number] Gh0 bWw+PGhlYWQ+WM7RQZNoM65 saRWuwZ3YM6gJST7KAYDVQO RCZY4FHU0bxXM0RFgoP4Kul iAv EmcaqSGeIS94CNq1TME2nFl iYCsgqP7pwMGbW4j1LyWrLM 98qE19XXrlXEWuIgH0TsYal jsgbWFy R3klSrHwmAZaSys+PHRhYmx lIHdpZHRoPScxMDAlJyBzdH jaRN0sTw8yWWPiHRKxmEwkg HNlOiBj t6qcCOYpTRqfOJ4ssUxaK6M ooLD7BCEaf7n3Es71mCQ+PH GrDMY7yMsyZJjcz992EhGfk 9ftRAH3 bTGqLWotYXN0L28sf2X6BBH fZBUaIDO8xPP6wY2zcTlhns hjV8BuwXOdWnK0PWR4gPBkx N2gcTbk xivnkJ2sZbi+M94XAJ5UJYQ BYV7UVyg5D8CcQjhdsWI+PC 79QTXqZP03mSLcbBBqn0xiq Bu7TfDa JGJvSYY1jPviINtld3PtVST wW99uwZWir5Q7XONurYckfY LkDzQqtNQ1bF0pKKwlkwtmn 2hvdzsn Zxjft5zuvz51zW34X32lZTq nJRKdDYP3MDShYKQytArwvl 1daR9vQn9+UPjpa6hqg3cux Bn7FmJe KCMkjlXzwFodAOJ1e0PtIj6 5E3XviLfkq5CbVzt8ba54lR Iys1H7fRQ5FXxpWSRyqI4vM WxlZnQ6 EEBiBuCklL64zXArBYdhFp0 huRiioDldYA4yEXFrewdcEF QmmC9mAKVrhCGxgPmeKN3vI TBpbjtm m767FuWvNMU4DDGbrZLnS1A eyF7vCgOeXITtLXEmR1DjaT EiYCaoR853RUjhGcM7AIEli zXiC9Bw ZWBxlDhpHeY8m2A2Yj3Cp5P cusbjJBA1GWnkYOWkQfH7No PtXfB8I4LhTjg7CPMtsGzmE A5xG7Gs CMHnmtwebqhbbKH8WODzUNG lyN88jOKgIClrJh1sn1G5l2 97KXFdRTGvmG13Bb2yjTtvK TBwdCBU kK1zepdzt5kvbzeyUaKsXVW xPUd7QMk1ZOCbrJhuUpUwAP O9DcQ3TSF4wIVkgY7mqNgfx qhwmR6k Oyc+M59smT6lPSK4IXE6hyf oDFGzywYeBJ08IF89V1JlHc wvdGFibGU+PGRpdiBzdHlsZ M2gJjNx i0kam8UcLQhfQ1PmIPHsJPl hEbz9TRQiJTP9oAD7dO3iMI RrXSyqb7B0yPD6J3PdlbHiu b3vg9ge WQVeMNlfU22ajNFyw7R0QYQ drRH5LGZaaOvmAnTwnA20Sy c+ANHxxMwtv8UqHtuxy4pet 6ctwLq6 LmIaUUMkjiWayWkxOYW8u2R qDg16Q83cFGdjXHAhCAPaOL JwBPLldGpsbg8nxS1wEz3+P GNvbCB3 hFO3kJ5wSYIwEoC7PZxdB27 5KdSsyDEvXouic3zhd1padX y7WaBzKORdrrFjwKijAPG1m 9InIr96 H04aZPwuFJAvMNEnONFlCPK lbJhjaw9ueO7fZz0+PC9jb2 azpu65eN63lOV+JFLeWYO1h WxlPSdw CTAweM8oJFxeHgI5SQSjSdO guR52rQBzXGznYs9naYhusX eqSM3nJANpzkjts107ZrCmi 2xkIDEw hQIrNGzxWNT5E70jw9N2YQE aZVClOPB8uSM4sM9beBjfeo ogbGVmdDsgdmVydGljYWwtY BezW601 IHRvcDsnPlBhdGllbnQgTmF mFYg2L8ZoArw5CHHgzLkyGE 1bfUPpPXydBp0dqHlatFbvR R5oVXMm dvzbn002LoVbp2qfDHPewGR wZKfnMVI4W31hb5J1TFNiYL WkSEI4sCA1pE8ovZvikmwhc GVmdDsg hhYozYzcCFjtHDqyB322MPH gfUlkUiWonmVtHNNpvXF5KX 85AF33gXAzp0I2uCY7X8DhT GRpbmct yctgkLM0OUOvJLQhgK84Sm5 cvAtjTj9aCAQpFCV2JPOdaF EmT3TntN4fNeUkCPSaCFTxM 3RleHQt TIfmQ027NZvsGiM7YIFmbvA dD2YcTIGwcVnjHxL0m5L9Cr 7WS5S2CB21ZV34sNTgf7G2p CH4S0Hp VXBxrzzpssykrEJ6TUVcTZI meP68Lo9ljDjdQy5tFLKlIA K8XGNltHIhI4NymI8aIcTdQ DAwMDAw V9JidFHsEKvlW029JGdeUnQ 0ZZQpjkTnV6KmZNVwiMopXc T6l6U3Tz9MUTp5LS98VX42l SJvf5V3 bVH8C4ZvLYTjlitrcbgbaNC 5JHWtCTKfgF10Sf6wcUboJy 3xNZVxUKP5PGWknBUjF8Ijb X9xYpSf RONeMHWpF4BpgVLuCRmaO97 9FKftQgF9CDSszeWwL3UiKQ NyaAphNnL8j2G5Nr6ZNJAkV M07TOS6 gRK5TF60LK35O7VqByeieAM ibGU+PHRhYmxlIHdpZHRoPS pdXOFmZuSaqZmkKC3fFy1pC GVyLWNv pGsdrUCdNbCxs1jzEIFyVQk iEH1lvWonF3MeqRN9IIUbr3 s9Sv46I19cY3BvqJY+PGNvb NP2mWT3 zW3sCtXcNuY3GWqkU694KdQ xvEUoTldnf1lzf1qgsQn8Xn C0KQWvmiPcfWxtHIF0f2VsJ i51X24g IHdpZHRoPSIxNSUiIHZhbGl ltd3xrH9wNx4+JHAwiTC0vV H0rG4jIaXjKeC0TRhtB290Q nRvcCIv Slixx2awn3zieAf9EsGyYSY acoOwjPglMPO7b7NtYm27J1 YccCuhc5TlSbw1pc83uRZri 7I8nZW2 J8IuDMFkgmyhuWZhaSbxVY3 cNRSdmhkiDWEbrV9cUEOcG4 a2HqVwDzM4XWqiL4NofiA5H DEwcHQg RDmwMXE6R01zq3A7BMJrXUT qTGN1cEJ0sO4xqXzdjcoumY VmdDsgdmVydGljYWwtYWxpZ 246IHRv oSxsLFAyjT2lAXWumSLfcFy hCN4aNWRsqjfvAmFMJNMYBD QFHasLAVWPKR57YW12pJLnq 9Y2yAM3 G9SdCYOjcmyvrvisiJJ4QUL cPPQzgE51hUOjWBinZy6nt8 G5w471YZKtWMGfcL48Dt6lx DogMTBw nLUFoR3lfyvqh0jbzwqrBiZ cNJXlTIm6NHs8MLDjjEnwEp WhFXX7XkM3XSU5vKHooD7qa Glnbjog vU1mQyy+RGEeVDpaOLv5Qqj vdGQ+QIGjRMT2zJqiGOyrKE UyfJ3hZJQuM5j9QtMbJwD4C GaoQ0Eh DZAekjnoMi56sW2fUaFyQmN 5MDaiW3QutdD5VPNihZBkCU deOBQ8P58eq7V2MWYdJOIbY IP7eUE2 uU6amSvmnzjiwRQyyJjbokH jcLkcKIjqTJmqR717LBPjnP fzUmI7CWbdSLZnIT40TG84c NYuh7H1 kZM8O3FkPYWsgxlfvvkoiUG 7IORpOGCsyQ45tVSlWYvvUl 4dr1O1t769ANQdGMCpeT59D y2gbJdc ZLYpxAHDcT5gqsegk4cujwm hKlMrIEBdRKi0DXc8EBDbmZ iqQpUbRTB1LeB4VMF6yPLoi E7blBzm aibvdM6iSdd+RmVtYWxlPC9 7AR51nHNsz4S7gEV5M2TdCG AuorgidejwsGC7JUEsFPQma M81sPCn JEwfMz3ej3L9h640MJOvVKY gvT26Cu8hxFnkPUZylJBBjT 7fkqtjx5smcveiHxReUSEhV Zy6DQr0 MUCanEstWrDtNJB7WfG7AFJ 7xQOroL7dxQipiaysmS7jYt c+CX2efKsicF7coN6BCX0fO ERheSBT uBGwQAC1JA80VG40C7BtEof vdGFibGU+PHRhYmxlIHdpZH NpXEthQEMzUsLouDzbYX2rN x7pFSSe UQHyrHnziNRsQvRhj4xjVJT bTTdnNG9ypUnnN5PgrZG3FI Khb9w8Bk84E60iW6QvvZA+P GNvbCB3 yTI4sE1uHuCjIwT4XUfsY41 8PrCczDOvUmvjg2krh7awkF i9WrChNNGmtiOytLicENE4w 4BwNn64 V96rYAkfTUJhCPRmOUPvMBF cgPdbcn7smC4pBa1+PGNvbC Y7eDC3wW3bAlLyThR7USmbP 249InRv zYBnUdfhD13bQ6JawPB+PHR sMil4VBWbxSxgQZ5asWIqCU ejMd1vFGO9ZgJwFaBcGVskU 3BhZGRp wrtuyumsbVA2MOHcDWVueN1 3Vi2maYmrUh9tKISbOWO3QT RhsIFpT6OxyN9sTgKsKOWlE UIuD9Zl cHPpLToxG631MYkhHlC7DYI emiLfI2MkRIRnoWuzRaD4f7 I7Tn5TyTjfeOKzCA7kXkKyS Te2J0Bu Mel8XTJjfLrlYK3unALnHCv eDv4fzFzcvOgmEF2cFEWiik afs769ZkZgf0yjIVLovOUnV GltZXM7 M01mc4A6CVPfHOVgTJO1mVF 7jN7daDyzdfvbjRJooCbkmk DyuHxfMDhjFGtzB620KZRfm DsnPkZJ Psk6L6JxTnq4CLMozUzqRG4 vwTPeDNijPs6jzBkenIuqKZ 7tQTJpyqrgf249IpVuy7dgO DEwcHQg UXktVNB5T30mt4W8RVFlBQA oACJ7tXO9pS1jvOuybmqdcU VmdDsgdmVydGljYWwtYWxpZ 246IHRv zUwuPp9RGlu4Q8RbWsc3EGG rnQqlCQ2idDSaOFjlHs3jiF oedNjhNZ9yGZTvdmwqv031Y aOnv2ik WAFqhIBsCHdnFOU4O12mi0Y 7AFFwQBNbMGI4aPO4nV1qhK lnbjogbGVmdDsgdmVydGljY WwtYWxp F008PLYmnGrkIvJtlUBmFeu vdGQ+FK82ci18Q2BlJkaeCq j6UYKpEDH2dZA1pV7hIFCcC Ynom9I2 bGU9 (more content not included)... Normal [facility] Consent for Anesthesiaon Consent for Anesthesia [id number]#1.00 CD:127 Normal [facility] Discharge Instructionson Discharge Instructions [id number]#1.00 CD:127 Normal [facility] IntraOperative Documentson 0 08-21-2022 IntraOperative Documents [id number]#1.00 CD:127 Normal [facility] IntraOperative Documents [id number]#1.00 CD:127 [facility] Main OR Intraoperative Recor don 08-21-2022 Main OR Intraoperative Record IntraOp Document Type FT Summary Primary Physician: Reza Proctor DO Finalized Date/Time: 08/21/22 12:38:52 Pt. Name: POORNIMA BARKER./Sex: 1975 Female Med Rec #: [id number] Physician: Reza Proctor DO Financial #: [id number] Pt. Type: A Room/Bed: [place] [address] Admit/Disch: 08/18/22 06:24:59 - 08/18/22 14:30:00 Institution: [...] Role Performed Anesthesiologist of Surgeon - Primary MASTER BREWER/SA Record Time In 08/18/22 09:53:00 08/18/22 09:53:00 08/18/22 09:53:00 Time Out 08/18/22 11:01:00 08/18/22 11:01:00 08/18/22 11:01:00 Procedure ULNAR NERVE ULNAR NERVE ULNAR NERVE TRANSPOSITION(Left) TRANSPOSITION(Left) TRANSPOSITION(Left) Comments Last Modified By: Tuyet Morel Kelsie E Sayler, Kelsie E 08/18/22 11:05:46 08/18/22 11:05:46 08/18/22 11:05:46 Entry 4 Entry 5 Case Attendee Tuyet Morel Jessica D Role Performed Windows Support Engineer - Primary Scrub - Primary Time In [...] and tissue Entry 1 Skin Integrity Intact, Flora, Warm, and Skin Abnormality No D (more content not included)... Normal [facility] Preoperative Documentson Preoperative Documents [id number]#1.00 CD:127 Normal [facility] Consent for Treatmenton 07-27 Consent for Treatment [id number]#1.00C D:127 Normal [facility] H&P Updateon 08-18-2022 H&P Update [id number]#1.00C D:127 Normal [facility] Inpatient Patient Summaryon 08-18-2022 Inpatient Patient Summary [place] [id number] [facility] Clinical Discharge Instructions PERSON INFORMATION Name: POORNIMA BARKER [facility]#:[id number] PHYSICIANS Admitting Physician: Reza Proctor DO Attending Physician: Reza Proctor DO PCP: DINESH BOBO MD Discharge Diagnosis: Comment: PATIENT EDUCATION INFORMATION Instructions: Ric Proctor - Upper Extremity Fracture Surgery (Custom); Post Op Patient Instructions - FT (Custom) Medication Leaflets: Follow up: MEDICATION LIST [facility] [address], [place] [id number], [phone] acetaminophen-hydrocodo ne (Anahuac 325 mg-5 mg oral tablet) 1-2 tab(s) Oral q4hr; as needed for pain. Refills: 0. docusate (Colace 100 mg Cap) 1 Capsules By Mouth 2 times a day as needed for constipation. Refills: 0. Medications to Continue Taking That Have Changed [facility] [address], [place] [id number], [phone] START: ibuprofen (ibuprofen 600 mg Tab) 1 Tablets By Mouth every 8 hours as needed as needed for pain. with food or milk. Refills: 0. Medications to Continue with No Changes Other Medications cranberry (cranberry oral capsule) esomeprazole (Nexium 40 mg Cap-EC) 1 Capsules By Mouth every day. Comment: Normal [facility] Main OR PACU I Recordon 07-27 Main OR PACU I Record PACU Phase I Docum ent Type FT Summary Primary Physician: Reza Proctor DO Finalized Date/Time: 08/18/22 13:17:16 Pt. Name: POORNIMA BARKER /Sex: 1975 Female Med Rec #: [id number] Physician: Reza Proctor DO Financial #: [id number] Pt. Type: A Room/Bed: [place] [address] Admit/Disch: 08/18/22 06:24:59 - Institution: Case Times [...] By: Luz Frederick RN 08/18/22 13:17 Normal [facility] Main OR PACU II Recordon Main OR PACU II Record PACU Phase II Doc ument Type FT Summary Primary Physician: Reza Proctor DO Finalized Date/Time: 08/18/22 14:50:45 Pt. Name: POORNIMA BARKER/Sex: 1975 Female Med Rec #: [id number] Physician: Reza Proctor DO Financial #: [id number] Pt. Type: A Room/Bed: [place] [address] Admit/Disch: 08/18/22 06:24:59 - Institution: Case Times [...] Signed By: Dylan Mcneil 08/18/22 14:50 Normal [facility] Main OR Preoperative Recordo n 08-18-2022 Main OR Preoperative Record PreOp Document Type FT Summary Primary Physician: Reza Proctor DO Finalized Date/Time: 08/18/22 10:25:18 Pt. Name: POORNIMA BARKER/Sex: 1975 Female Med Rec #: [id number] Physician: Reza Proctor DO Financial #: [id number] Pt. Type: Room/Bed: [place] [address] Admit/Disch: 08/18/22 06:24:59 - Institution: Case Times [...] Tuyet Morel Document Signatures Signed By: Tuyet Moerl 08/18/22 10:25 Normal [facility] Monitor Recordon 08-18-2022 Monitor Record [id number]#1.00 CD:127 Normal [facility] Monitor Record [id number]#1.00 CD:127 Normal [facility] Operative Reporton Operative Report Patient: CHANDA BARKER Age: 47 years Sex: Female : 1975 Associated Diagnoses: None Author: Reza Proctor DO DATE OF SURGERY: 08/18/2022 SURGEON: Reza Proctor D.O. SAFETY PIN ASSEMBLING MACHINE OPERATOR: Erin Palacios CFA PREOPERATIVE DIAGNOSIS: Chronic extensor tendinosis, left elbow POSTOPERATIVE DIAGNOSIS: Chronic extensor tendinosis, left elbow PROCEDURE: 1. Open common extensor tendon debridement, left elbow 2. Application of short arm volar fiberglass splint ANESTHESIA: General with regional block ANESTHESIOLOGIST: David Montaño MD IMPLANTS: Arthrex 3.0 mm knotless suture tack anchor OPERATIVE INDICATIONS: Poornima is a 47-year-old eajgk-qgja-vnuuwsss female who has had persistent pain over [...] in the common extensor in a running qfbuyd-ar-ovhnz. The distal aspect of the suture was [...] was clean and elective. Reza Proctor D.O. [facility] Comment on above: Result Comment: [...] Using maximal sterile barrier technique per current [facility] guidelines including hand hygeine, Guidance (Ultrasound [...] patient tolerated the procedure as expected. Normal [facility] Comment on above: Result Comment: Elec tronically Signed By: Danyel HARVEY, David Carrillo\.br\Date and Time Signed: 08/18/22 08:24 EST Outpatient Surgery Discharge Instructionon 08-18-2022 Outpatient Surgery Discharge Instruction [address] [address] Patient Discharge Instructions PERSON INFORMATION [...] Information: You may receive a survey from [employer] asking you to rate your care experience. Your feedback is important and will help us understand what we do well and how we can improve the quality of care we provide to you, your loved ones and our community. It?s an honor to serve you. Thank you for choosing [facility] [place] HERE ARE THE MEDICATION CHANGES THAT OCCURRED DURING YOUR HOSPITAL STAY [facility] [address] [place], [place] [id number], [phone] acetaminophen-hydrocodo ne (Anahuac 325 mg-5 mg oral tablet) 1-2 tab(s) Oral q4hr; as needed for pain. Refills: 0. docusate (Colace 100 mg Cap) 1 Capsules By Mouth 2 times a day as needed for constipation. Refills: 0. Medications to Continue Taking That Have Changed [facility] [address] [facility] [place], [place] [id number], [phone] START: ibuprofen (ibuprofen 600 mg Tab) 1 Tablets By Mouth every 8 hours as needed as needed for pain. with food or milk. Refills: 0. Medications to Continue with No Changes Other Medications cranberry (cranberry oral capsule) esomeprazole (Nexium 40 mg Cap-EC) 1 Capsules By Mouth every day. 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 It is therefore advised not to drive until after your first office visit following surgery. Do not drive while taking pain medication. ____ Reza Proctor, DO [facility] [address] [place], [place] [address] Reviewed: (Inserted I (more content not included)... 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 It is therefore advised not to drive until after your first office visit following surgery. Do not drive while taking pain medication. ____ Reza Proctor, DO [facility] [address] [place] [address] Reviewed: [facility] Progress Note-Physicianon Progress Note-Physician Patient: POORNIMA BARKER Age: 47 years Sex: Female : 1975 Associated Diagnoses: None Author: David Montaño MD Postoperative Information Postoperative disposition: Postoperative disposition: To PACU. Optimetrix number: Optimetrix number [id number]. Anesthetic utilized: General. Regional: adductor canal block. Health Status Problem list: All Problems Acid reflux / SNOMED CT 756550680 / Confirmed Endometriosis / SNOMED CT 915364846 / Confirmed History of seizures / SNOMED CT 3939994476 / Confirmed Migraines / SNOMED CT 89206073 / Confirmed Pseudotumor cerebri / SNOMED CT 244343015 / Confirmed Smoker / SNOMED CT 136878482 / Confirmed Added secondary to documentation in [...] Ambulatory Surgery Unit, and To home ). [facility] Comment on above: Result Comment: [...] All Problems Acid reflux / SNOMED CT 023218196 / Confirmed Endometriosis / SNOMED CT 942107552 / Confirmed History of seizures / SNOMED CT 7444084979 / Confirmed Migraines / SNOMED CT 20442031 / Confirmed Pseudotumor cerebri / SNOMED CT 776187605 / Confirmed Smoker / SNOMED CT 962285065 / Confirmed Added secondary to documentation in Social History., Active Problems (6) Acid reflux Endometriosis History of seizures Migraines Pseudotumor cerebri Smoker Histories Past Medical History: No active or resolved past medical history items have been selected or recorded. Family History: No family history items have been selected or recorded. Procedure history: Cholecystectomy (12984703). History of total hysterectomy (5567522871). Excision of cyst on neck (7706197520). Excision of cyst bilat ovaries (0104275458). Colonoscopy (557800381). Procedure on brain ventricular shunt (3971041079). Social History Social & Psychosocial Habits Alcohol [...] 6:36 EST Height (more content not included)... [facility] Comment on above: Result Comment: Elec tronically Signed By: Danyel HARVEY, David Carrillo\.br\Date and Time Signed: 08/18/22 06:50 EST Consent for Procedure/Surger yon 08-17-2022 Consent for Procedure/Surgery [id number]#1.00C D:127 [facility] Physician Orderon 08-16-2022 Physician Order [id number]#1.0 0CD:127 [facility] BUNon 08-08-2022 Urea nitrogen [Mass/Vol] 10 mg/dL Normal 5-21 [facility] Comment on above: Performed By: #### 2 393021, 6261248, 82550588, 4440439, 8895489, 5313592 ####[facility] [address] [place] [address] CBC w/Indiceson 08-08-2022 Erythrocyte distribution width (RBC) [Ratio] 14.8 % High 10.9-14.2 [facility] Comment on above: Performed By: #### 2 244268, 8873345, 90636523, 9442809, 0706982, 1237823 ####[place] [address] [place] [address] Hematocrit (Bld) [Volume fraction] 38.8 % Normal 34.0-46.0 [facility] Comment on above: Performed By: #### 2 369698, 6043508, 03248144, 0769235, 4565231, 0213401 ####[facility] [address] [place] [address] Hemoglobin (Bld) [Mass/Vol] 12.9 g/dL Normal 12.0-16.0 [facility] Comment on above: Performed By: #### 2 531181, 4497767, 02039234, 7242256, 2984667, 3825120 ####[facility] [address] [place] [address] MCH (RBC) [Entitic mass] 29.3 pg Normal 27.0-34.0 [facility] Comment on above: Performed By: #### 2 655271, 6280286, 83195852, 6480566, 8590141, 2014515 ####[facility] [address] [place] [address] MCHC (RBC) [Mass/Vol] 33.4 g/dL Normal 31.4-36.0 [facility] Comment on above: Performed By: #### 2 120244, 9266503, 59419133, 5282680, 8629431, 7573822 ####[facility] [address] [place] [address] MCV (RBC) [Entitic vol] 87.7 fL Normal 80.0-100.0 [facility] Comment on above: Performed By: #### 2 830307, 3719244, 63955708, 7362375, 2975517, 4586837 ####[facility] [address] [place] [address] Platelet mean volume (Bld) [Entitic vol] 8.3 fL Normal 6.4-10.8 [facility] Comment on above: Performed By: #### 2 840742, 2559963, 95407012, 7907475, 4080608, 3998301 ####[place] [address] [place] [address] Platelets (Bld) [#/Vol] 278.0 E9/L Normal 150.0-500.0 [facility] Comment on above: Performed By: #### 2 367220, 6164479, 95241142, 3136904, 7498312, 3569086 ####[place] [address] [place] [address] RBC (Bld) [#/Vol] 4.4 E12/L Normal 4.3-5.9 [facility] Comment on above: Performed By: #### 2 335040, 5403968, 45076960, 5951586, 4935244, 7458930 ####[place] [address] [place] [address] WBC corrected for nucl RBC Auto (Bld) [#/Vol] 10.7 E9/L Normal 4.0-11.0 [facility] Comment on above: Performed By: #### 2 918174, 9376699, 33092892, 5442670, 7948430, 8036872 ####[place] [address] [place] [address] CHEMISTRYOrdered By: SYSTEM SYSTEM on 08-08-2022 Anion gap [Moles/Vol] 12 mmol/L Normal 6 - 16 mEq/L F [facility] Remisol Chloride [Moles/Vol] 108 mmol/L Normal 101 - 1 11 mmol/L [facility] Remisol CO2 [Moles/Vol] 26 mmol/L Normal 21 - 31 mmol/L [facility] Remisol Creatinine [Mass/Vol] 0.9 mg/dL Normal 0.5 - 1.3 mg/dL [facility] Remisol GFR/1.73 sq M.predicted among blacks MDRD (S/P/Bld) [Vol rate/Area] mL/min/1.73 m2 Normal >=59mL/min/1 .73 m2 [facility] Chem S GFR/1.73 sq M.predicted among non-blacks MDRD (S/P/Bld) [Vol rate/Area] mL/min/1.73 m2 Normal >=59mL/min/1 .73 m2 [facility] Chem S Glucose [Mass/Vol] 96 mg/dL Normal 55 - 199 mg/dL [facility] Remisol Potassium [Moles/Vol] 3.6 mmol/L Normal 3.5 - 5.3 mmol/L [facility] Remisol Sodium [Moles/Vol] 142 mmol/L Normal 135 - 145 mmol/L [facility] Remisol Urea nitrogen [Mass/Vol] 10 mg/dL Normal 5 - 21 mg/dL [facility] Remisol Consent for Treatmenton 07-26 Consent for Treatment [id number]#1.00C D:127 Normal [facility] Creatinineon 08-08-2022 Creatinine [Mass/Vol] 0.9 mg/dL Normal 0.5-1.3 [facility] Comment on above: Performed By: #### 2 391356, 6034038, 65345966, 4061600, 3557391, 2090314 ####[facility] [address] [place] [address] Glucoseon 08-08-2022 Glucose [Mass/Vol] 96 mg/dL Normal 55-199 [facility] Comment on above: Performed By: #### 2 262299, 6094718, 51615078, 1088871, 2903237, 6452529 ####[facility] [address] [place] [address] HEMATOLOGYOrdered By: Carlos Humphrey on 08-08-2022 Erythrocyte [...] Anion gap [Moles/Vol] 12 mmol/L Normal 6-16 [facility] Comment on above: Performed By: #### 2 753490, 8796908, 83173732, 0436759, 5635067, 4274617 ####[facility] [address] [place] [address] Chloride [Moles/Vol] 108 mmol/L Normal 101-111 [facility] Comment on above: Performed By: #### 2 648132, 0651731, 05761491, 1672902, 5091362, 8937049 ####[facility] [address] [place] [address] CO2 [Moles/Vol] 26 mmol/L Normal 21-31 [facility] Comment on above: Performed By: #### 2 175363, 5260010, 65557685, 4754464, 7460775, 5714077 ####[facility] [address] [place] [address] Potassium [Moles/Vol] 3.6 mmol/L Normal 3.5-5.3 [facility] Comment on above: Performed By: #### 2 663234, 1168977, 16644372, 8839546, 3170718, 4530336 ####[facility] [address] [place] [address] Sodium [Moles/Vol] 142 mmol/L Normal 135-145 [facility] Comment on above: Performed By: #### 2 421445, 8991699, 63062328, 4939053, 9427025, 6051750 ####[facility] [address] [place] [address] XR Chest 2 Viewson 3 XR Chest [...] V. Transcribed by: CANDELARIA Technologist: ALEYDA Aguilar [facility] eGFRon 08-08-2022 GFR/1.73 sq M.predicted among blacks MDRD (S/P/Bld) [Vol rate/Area] mL/min/{1.73_m2} Normal >=59 [facility] Comment on above: Order Comment: Order added by Discern Expert. Result Comment: eGFR is race adjusted. AA=. Performed By: #### 2 462548, 1919836, 61071237, 7322412, 6170865, 8461487 ####[facility] [address] [place] [address] GFR/1.73 sq M.predicted among non-blacks MDRD (S/P/Bld) [Vol rate/Area] mL/min/{1.73_m2} Normal >=59 [facility] Comment on above: Order Comment: Order added by Discern Expert. Result Comment: Special Events Manager reginaldo kidney disease could be indicated at eGFR's of less than 60 mL/min/1.73m2. Kidney failure is indicated at less than 15 mL/min/1.73m2. Performed By: #### 2 576178, 9959279, 48240878, 1994950, 6874387, 7356978 ####[facility] [address] [place] [address] CT HEAD WO CONon 10-31-2021 CT HEAD [...] by: ROSANNE PERKINS Date: 2021-10-31 14:25 Normal [facility] XR CHEST 1 Von 10-21-2021 [...] ЕЛЕНА ROBERT Date: 2021-10-21 15:50 Normal [facility] XR KUB 1 VIEWon 10-21-2021 XR KUB 1 VIEW EXAM: XR KUB 1 VIEW, XR SKULL LESS THAN 4 VIEWS Clinical Indication: Benign intracranial hypertension Comparison: None FINDINGS: Images of the skull shows a right-sided INSTRUMENT LENS GENERATOR shunt tube, coursing along the right side of the neck and chest into the right side of the abdomen The supine and upright views of the abdomen shows a non-obstructive bowel gas pattern. There is no abnormal dilatation of bowel loops. No significant air fluid levels. There is no pneumoperitoneum. Right-sided INSTRUMENT LENS GENERATOR shunt is seen, with the tip in the area of the bladder. Cholecystectomy changes are seen. There are no clinically significant osseous abnormalities noted. IMPRESSION: Unremarkable abdominal series The shunt tube begins in the right cerebral hemisphere, and terminates in the pelvis. No obvious discontinuity or kink SL: [id number] Electronically authenticated by: ЕЛЕНА ROBERT Date: 2021-10-21 16:49 Normal [facility] Vital Signs Date Time Vital Sign Value Performing Clinician Facility 02-18-2025 10:43-0400 Body height 157.48 cm Dinesh Bobo MD Work Phone: [facility] 02-18-2025 10:43-0400 Body mass index (BMI) [Ratio] 34.5 kg/m2 Dinesh Bobo MD Work Phone: [facility] 02-18-2025 10:43-0400 Body temperature 96.6 [degF] Dinesh Bobo MD Work Phone: [facility] 02-18-2025 10:43-0400 Body weight 85.72 kg Dinesh Bobo MD Work Phone: [facility] 02-18-2025 10:43-0400 Diastolic blood pressure 76 mm[Hg] Dinesh Bobo MD Work Phone: [facility] 02-18-2025 10:43-0400 Heart rate 66 /min Dinesh Bobo MD Work Phone: [facility] 02-18-2025 10:43-0400 Respiratory rate 18 /min Dinesh Bobo MD Work Phone: [facility] 02-18-2025 10:43-0400 SaO2% (BldA) [Mass fraction] 96 % Dinesh Bobo MD Work Phone: [facility] 02-18-2025 10:43-0400 Systolic blood pressure 124 mm[Hg] Dinesh Bobo MD Work Phone: [facility] 01-27-2025 13:31-0400 Body height 154.94 cm Dinesh Bobo MD Work Phone: [facility] 01-27-2025 13:31-0400 Body mass index (BMI) [Ratio] 35.9 kg/m2 Dinesh Bobo MD Work Phone: [facility] 01-27-2025 13:31-0400 Body weight 86.18 kg Dinesh Bobo MD Work Phone: [facility] 01-27-2025 13:31-0400 Diastolic blood pressure 65 mm[Hg] Dinesh Bobo MD Work Phone: [facility] 01-27-2025 13:31-0400 Heart rate 85 /min Dinesh Bobo MD Work Phone: [facility] 01-27-2025 13:31-0400 Systolic blood pressure 98 mm[Hg] Dinesh Bobo MD Work Phone: [facility] 01-13-2025 13:18-0400 Body height 154.94 cm Dinesh Bobo MD Work Phone: [facility] 01-13-2025 13:18-0400 Body mass index (BMI) [Ratio] 35.3 kg/m2 Dinesh Bobo MD Work Phone: [facility] 01-13-2025 13:18-0400 Body weight 84.82 kg Dinesh Bobo MD Work Phone: [facility] 01-13-2025 13:18-0400 Diastolic blood pressure 64 mm[Hg] Dinesh Bobo MD Work Phone: [facility] 01-13-2025 13:18-0400 Heart rate 82 /min Dinesh Bobo MD Work Phone: [facility] 01-13-2025 13:18-0400 Systolic blood pressure 92 mm[Hg] Dinesh Boob MD Work Phone: [facility] 12-19-2024 13:03-0400 Body height 154.94 cm Dinesh Bobo MD Work Phone: [facility] 12-19-2024 13:03-0400 Body mass index (BMI) [Ratio] 35.6 kg/m2 Dinesh Bobo MD Work Phone: [facility] 12-19-2024 13:03-0400 Body weight 85.72 kg Dinesh Bobo MD Work Phone: [facility] 12-19-2024 13:03-0400 Diastolic blood pressure 61 mm[Hg] Dinesh Bobo MD Work Phone: [facility] 12-19-2024 13:03-0400 Heart rate 101 /min Dinesh Bobo MD Work Phone: [facility] 12-19-2024 13:03-0400 Systolic blood pressure 91 mm[Hg] Dinesh Bobo MD Work Phone: [facility] 11-21-2024 10:57-0400 Body height 154.94 cm Dinesh Bobo MD Work Phone: [facility] 11-21-2024 10:57-0400 Body mass index (BMI) [Ratio] 36.1 kg/m2 Dinesh Bobo MD Work Phone: [facility] 11-21-2024 10:57-0400 Body weight 86.86 kg Dinesh Bobo MD Work Phone: [facility] 11-21-2024 10:57-0400 Diastolic blood pressure 68 mm[Hg] Dinesh Bobo MD Work Phone: [facility] 11-21-2024 10:57-0400 Heart rate 76 /min Dinesh Bobo MD Work Phone: [facility] 11-21-2024 10:57-0400 Respiratory rate 12 /min Dinesh Bobo MD Work Phone: [facility] 11-21-2024 10:57-0400 SaO2% (BldA) [Mass fraction] 96 % Dinesh Bobo MD Work Phone: [facility] 11-21-2024 10:57-0400 Systolic blood pressure 105 mm[Hg] Dinesh Bobo MD Work Phone: [facility] 10-14-2024 09:50-0400 Body height 154.94 cm Dinesh Bobo MD Work Phone: [facility] 10-14-2024 09:50-0400 Body mass index (BMI) [Ratio] 35.6 kg/m2 Dinesh Bobo MD Work Phone: [facility] 10-14-2024 09:50-0400 Body temperature 98.7 [degF] Dinesh Bobo MD Work Phone: [facility] 10-14-2024 09:50-0400 Body weight 85.72 kg Dinesh Bobo MD Work Phone: [facility] 10-14-2024 09:50-0400 Diastolic blood pressure 64 mm[Hg] Dinesh Bobo MD Work Phone: [facility] 10-14-2024 09:50-0400 Heart rate 102 /min Dinesh Bobo MD Work Phone: [facility] 10-14-2024 09:50-0400 SaO2% (BldA) [Mass fraction] 95 % Dinesh Bobo MD Work Phone: [facility] 10-14-2024 09:50-0400 Systolic blood pressure 95 mm[Hg] Dinesh Bobo MD Work Phone: [facility] 10-01-2024 14:27-0400 Body height 154.94 cm [facility] 10-01-2024 14:27-0400 Body mass index (BMI) [Ratio] 34.5 kg/m2 [facility] 10-01-2024 14:27-0400 Body weight 83 kg [facility] 10-01-2024 14:27-0400 Diastolic blood pressure 70 mm[Hg] [facility] 10-01-2024 14:27-0400 Heart rate 71 /min [facility] 10-01-2024 14:27-0400 Systolic blood pressure 124 mm[Hg] [facility] 07-04-2024 09:25-0500 Body height 154.94 cm [facility] 07-04-2024 09:25-0500 Body mass index (BMI) [Ratio] 34.5 kg/m2 [facility] 07-04-2024 09:25-0500 Body weight 83.03 kg [facility] 07-04-2024 09:25-0500 Diastolic blood pressure 62 mm[Hg] [facility] 07-04-2024 09:25-0500 Heart rate 78 /min [facility] 07-04-2024 09:25-0500 Systolic blood pressure 102 mm[Hg] [facility] 03-28-2024 09:08-0400 Body height 154.94 cm MD Dinesh Bobo Work Phone: [facility] 03-28-2024 09:08-0400 Body mass index (BMI) [Ratio] 34 kg/m2 MD Dinesh Bobo Work Phone: [facility] 03-28-2024 09:08-0400 Body weight 81.64 kg MD Dinesh Bobo Work Phone: [facility] 01-07-2024 13:41-0400 Diastolic blood pressure 53 mm[Hg] MD Dinesh Bobo Work Phone: [facility] 01-07-2024 13:41-0400 Heart rate 64 /min MD Dinesh Bobo Work Phone: [facility] 01-07-2024 13:41-0400 Respiratory rate 16 /min MD Dinesh Bobo Work Phone: [facility] 01-07-2024 13:41-0400 SaO2% (BldA) [Mass fraction] 100 % MD Dinesh Bobo Work Phone: [facility] 01-07-2024 13:41-0400 Systolic blood pressure 94 mm[Hg] MD Dinesh Bobo Work Phone: [facility] 01-07-2024 11:34-0400 Body height 154.94 cm MD Dinesh Bobo Work Phone: [facility] 01-07-2024 11:34-0400 Body weight 82.1 kg MD Dinesh Bobo Work Phone: [facility] 12-13-2023 13:10-0400 Body height 152.4 cm MD Dinesh Bobo Work Phone: [facility] 12-13-2023 13:10-0400 Body mass index (BMI) [Ratio] 36.3 kg/m2 MD Dinesh Bobo Work Phone: [facility] 12-13-2023 13:10-0400 Body weight 84.36 kg MD Dinesh Bobo Work Phone: [facility] 10-19-2023 11:28-0400 Diastolic blood pressure 60 mm[Hg] MD Dinesh Bobo Work Phone: [facility] 10-19-2023 11:28-0400 Heart rate 55 /min MD Dinesh Bobo Work Phone: [facility] 10-19-2023 11:28-0400 Respiratory rate 16 /min MD Dinesh Bobo Work Phone: [facility] 10-19-2023 11:28-0400 SaO2% (BldA) [Mass fraction] 96 % MD Dinesh Bobo Work Phone: [facility] 10-19-2023 11:28-0400 Systolic blood pressure 96 mm[Hg] MD Dinesh Bobo Work Phone: [facility] 10-19-2023 09:21-0400 Body height 152.4 cm MD Dinesh Bobo Work Phone: [facility] 10-19-2023 09:21-0400 Body weight 84.36 kg MD Dinesh Bobo Work Phone: [facility] 10-03-2023 10:40-0400 Body height 158.75 cm [facility] 10-03-2023 10:40-0400 Body mass index (BMI) [Ratio] 34 kg/m2 [facility] 10-03-2023 10:40-0400 Body weight 85.72 kg [facility] 09-07-2023 11:27-0400 Body height 158.75 cm [facility] 09-07-2023 11:27-0400 Body mass index (BMI) [Ratio] 34 kg/m2 [facility] 09-07-2023 11:27-0400 Body weight 85.84 kg [facility] 09-07-2023 11:27-0400 Diastolic blood pressure 70 mm[Hg] [facility] 09-07-2023 11:27-0400 Heart rate 78 /min [facility] 09-07-2023 11:27-0400 Systolic blood pressure 106 mm[Hg] [facility] 06-29-2023 09:45-0500 Body height 158.75 cm Dinesh Bobo Other [facility] 06-29-2023 09:45-0500 Body mass index (BMI) [Ratio] 34.19 kg/m2 Dinesh Bobo Other [employer] Other 06-29-2023 09:45-0500 Body weight 86.18 kg Dinesh Bobo Other [facility] 06-29-2023 09:45-0500 Diastolic blood pressure 70 mm[Hg] Dinesh Bobo Other [facility] 06-29-2023 09:45-0500 Systolic blood pressure 101 mm[Hg] Dinesh Jeramie Other [facility] 08-18-2022 14:08-0500 Heart rate 65 /min [employer] [facility] 08-18-2022 14:08-0500 SaO2% (BldA) [Mass fraction] 95 % [employer] [facility] 08-18-2022 14:08-0500 Diastolic blood pressure 73 mm[Hg] [employer] [facility] 08-18-2022 14:08-0500 Mean blood pressure 85 mm[Hg] [employer] [facility] 08-18-2022 14:08-0500 Systolic blood pressure 110 mm[Hg] Reza Brown [facility] 08-18-2022 14:08-0500 Respiratory rate 18 /min [employer] [facility] 08-18-2022 13:04-0500 Heart rate 71 /min [employer] [facility] 08-18-2022 13:04-0500 SaO2% (BldA) [Mass fraction] 92 % [employer] [facility] 08-18-2022 12:10-0500 SaO2% (BldA) [Mass fraction] 94 % [employer] [facility] 08-18-2022 12:06-0500 Heart rate 75 /min [employer] [facility] 08-18-2022 12:05-0500 Respiratory rate 18 /min [employer] [facility] 08-18-2022 12:04-0500 Diastolic blood pressure 70 mm[Hg] Reza Brown [facility] 08-18-2022 12:04-0500 Mean blood pressure 80 mm[Hg] Reza Brown [facility] 08-18-2022 12:04-0500 Systolic blood pressure 101 mm[Hg] Reza Brown [facility] 08-18-2022 12:04-0500 Body temperature 97.52 [degF] Reza Brown [facility] 08-18-2022 11:55-0500 Body temperature 97.7 [degF] Reza Brown [facility] 08-18-2022 11:55-0500 Diastolic blood pressure 66 mm[Hg] Reza Brown [facility] 08-18-2022 11:55-0500 Mean blood pressure 74 mm[Hg] Reza Brown [facility] 08-18-2022 11:55-0500 Respiratory rate 12 /min Reza Brown [facility] 08-18-2022 11:55-0500 Systolic blood pressure 90 mm[Hg] Reza Brown [facility] 08-18-2022 11:45-0500 Mean blood pressure 79 mm[Hg] Reza Brown [facility] 08-18-2022 11:45-0500 Respiratory rate 16 /min Reza Brown [facility] 08-18-2022 11:30-0500 Mean blood pressure 83 mm[Hg] Reza Brown [facility] 08-18-2022 11:30-0500 Respiratory rate 12 /min Reza Brown [facility] 08-18-2022 11:02-0500 Body temperature 97.16 [degF] Reza Proctor [facility] 08-18-2022 10:55-0500 Respiratory rate 10 /min Reza Proctor [facility] 08-18-2022 06:40-0500 Mean blood pressure 83 mm[Hg] Reza Proctor [facility] 08-18-2022 06:40-0500 Blood Pressure Location Reza Proctor [employer] [facility] 08-18-2022 06:40-0500 Heart rate 88 /min Reza Proctor [employer] [facility] 08-18-2022 06:39-0500 Body temperature 98.06 [degF] Reza Proctor [employer] [facility] 08-18-2022 06:38-0500 Blood Pressure Location Reza Proctor [employer] [facility] 08-16-2022 09:15-0500 Body height 158.75 cm Dinesh Bobo Other [employer] Other 08-16-2022 09:15-0500 Body mass index (BMI) [Ratio] 35.45 kg/m2 Dinesh Bobo Other [employer] Other 08-16-2022 09:15-0500 Body weight 89.36 kg Dinesh Bobo Other [employer] Other 08-16-2022 09:15-0500 Diastolic blood pressure 68 mm[Hg] Dinesh Bobo Other [employer] Other 08-16-2022 09:15-0500 SaO2% (BldA) [Mass fraction] 97 % Dinesh Bobo Other [employer] Other 08-16-2022 09:15-0500 Systolic blood pressure 108 mm[Hg] Dinesh Bobo Other [employer] Other 08-08-2022 15:39-0500 Diastolic blood pressure 77 mm[Hg] [employer] [facility] 08-08-2022 15:39-0500 Heart rate 71 /min [employer] [facility] 08-08-2022 15:39-0500 Mean blood pressure 90 mm[Hg] [employer] [facility] 08-08-2022 15:39-0500 Systolic blood pressure 117 mm[Hg] [employer] [facility] 08-08-2022 15:39-0500 Heart rate 77 /min [employer] [facility] 08-08-2022 15:39-0500 SaO2% (BldA) [Mass fraction] 100 % [employer] [facility] 08-08-2022 15:38-0500 Diastolic blood pressure 81 mm[Hg] Reza Proctor [facility] 08-08-2022 15:38-0500 Mean blood pressure 98 mm[Hg] Reza Proctor [facility] 08-08-2022 15:38-0500 Systolic blood pressure 133 mm[Hg] [employer] [facility] 08-08-2022 15:38-0500 Respiratory rate 16 /min [employer] [facility] 11-15-2021 11:00-0400 Body height 158.75 cm Seb Bobo Other [employer] Other 11-15-2021 11:00-0400 Body mass index (BMI) [Ratio] 33.83 kg/m2 Seb Bobo Other [facility] [employer] Other 11-15-2021 11:00-0400 Body weight 85.28 kg Seb Bobo Other [facility] [employer] Other Encounters Encounter Date Encounter Type Care Provider Facility Start: 02-18-2025 End: 02-18-2025 ambulatory Dinesh Bobo MD Work Phone: [facility] Work Phone: Start: 02-18-2025 End: 02-18-2025 Patient encounter procedure Jaylin Carrero [facility] Work Phone: Start: 01-27-2025 End: 01-27-2025 ambulatory Dinesh Bobo MD Work Phone: [facility] Work Phone: Start: 01-27-2025 End: 01-27-2025 Patient encounter procedure Dinesh Bobo MD -[facility] Work Phone: Start: 01-13-2025 End: 01-13-2025 ambulatory Dinesh Bobo MD Work Phone: [facility] Work Phone: Start: 01-13-2025 End: 01-13-2025 Patient encounter procedure Dinesh Bobo MD -[facility] Work Phone: Start: 12-19-2024 End: 12-19-2024 ambulatory Dinesh Bobo MD Work Phone: [facility] Work Phone: Start: 12-19-2024 End: 12-19-2024 Patient encounter procedure Dinesh Bobo MD -[facility] Work Phone: Start: 11-21-2024 End: 11-21-2024 ambulatory Dinesh Bobo MD Work Phone: [facility] Work Phone: Start: 11-21-2024 End: 11-21-2024 Patient encounter procedure Dinesh Bobo MD Work Phone: [facility] Work Phone: Start: 11-07-2024 End: 11-07-2024 Patient encounter procedure Dinesh Bobo MD Work Phone: [facility] [place] Work Phone: Start: 11-07-2024 End: 11-07-2024 ambulatory Imelda L Ly Facility:[facility] Start: 10-14-2024 Non-patient / Non-visit Dinesh Bobo MD Work Phone: [facility] Work Phone: Start: 10-14-2024 End: 10-14-2024 ambulatory Dinesh Bobo MD Work Phone: [facility] Work Phone: Start: 10-14-2024 End: 10-14-2024 Patient encounter procedure Dinesh Bobo MD Work Phone: [facility] Work Phone: Start: 10-03-2024 End: 10-03-2024 Patient encounter procedure Dinesh Bobo MD Work Phone: [facility] [place] Work Phone: Start: 10-03-2024 End: 10-03-2024 ambulatory Dinesh Bobo MD Work Phone: [facility] Work Phone: Start: 10-01-2024 End: 10-01-2024 ambulatory [facility] Work Phone: Start: 10-01-2024 End: 10-01-2024 Patient encounter procedure [facility] Work Phone: Start: 07-26-2024 Non-patient / Non-visit [facility] Work Phone: Start: 07-25-2024 End: 07-25-2024 ambulatory [facility] Start: 07-04-2024 End: 07-04-2024 Patient encounter procedure [facility] Work Phone: Start: 05-24-2024 ambulatory [facility] Start: 03-28-2024 End: 03-28-2024 ambulatory MD Dinesh Bobo Work Phone: [facility] Work Phone: Start: 03-28-2024 End: 03-28-2024 Patient encounter procedure MD Dinesh Bobo Work Phone: [facility] Work Phone: Start: 03-12-2024 End: 03-12-2024 Nursing evaluation of patient and report Breath Test [facility] Work Phone: [facility] Comment on above: Diarrhea, unspecifie d type (Primary Dx) Start: 01-07-2024 Non-patient / Non-visit MD Lillian Bobo Work Phone: [facility] Phys[facility] Gastroenterology Work Phone: Start: 01-07-2024 End: 01-07-2024 Admission to same day surgery center MD Dinesh Bobo Work Phone: [facility] Work Phone: Start: 01-07-2024 End: 01-07-2024 ambulatory MD Dinesh Bobo Work Phone: [facility] Work Phone: Start: 12-13-2023 End: 12-13-2023 Patient encounter procedure MD Dinesh Bobo Work Phone: [facility] Gastroenterology Work Phone: Start: 11-07-2023 Non-patient / Non-visit MD Lillian Bobo Work Phone: [facility] Work Phone: Start: 11-02-2023 End: 11-02-2023 ambulatory MD Dinesh Bobo Work Phone: [facility] Work Phone: Start: 11-02-2023 End: 11-02-2023 Patient encounter procedure MD Dinesh Bobo Work Phone: [facility] [place] Work Phone: Start: 10-24-2023 Non-patient / Non-visit MD Lillian Bobo Work Phone: [facility] Work Phone: Start: 10-22-2023 Non-patient / Non-visit MD Lillian Bobo Work Phone: [facility] Work Phone: Start: 10-19-2023 Non-patient / Non-visit MD Lillian Bobo Work Phone: [facility] Work Phone: Start: 10-19-2023 End: 10-19-2023 Admission to same day surgery center MD Dinesh Bobo Work Phone: [facility] Work Phone: Start: 10-19-2023 End: 10-19-2023 ambulatory MD Dinesh Bobo Work Phone: [facility] Work Phone: Start: 10-03-2023 End: 10-03-2023 ambulatory [facility] Work Phone: Start: 10-03-2023 End: 10-03-2023 Patient encounter procedure [facility] Work Phone: Start: 09-07-2023 End: 09-07-2023 ambulatory [facility] Work Phone: Start: 09-07-2023 End: 09-07-2023 Patient encounter procedure [facility] Work Phone: Start: 08-14-2023 Non-patient / Non-visit [facility] Work Phone: Start: 07-17-2023 End: 07-17-2023 ambulatory Dinesh Bobo Other [employer] Other Start: 07-17-2023 Telephone encounter Dinesh Jeramie [facility] Start: 06-29-2023 End: 06-29-2023 ambulatory Dinesh Jeramie Other [employer] Other Start: 06-29-2023 Office outpatient vi sit 15 minutes Dinesh Bobo [facility] Start: 06-29-2023 End: 06-29-2023 Patient encounter procedure [facility] Work Phone: Start: 10-11-2022 End: 02-26-2023 ambulatory Reza Proctor Facility:[facility] Start: 10-11-2022 End: 02-25-2023 Recurring Reza Proctor [facility] Start: 08-23-2022 End: 08-23-2022 ambulatory Dinesh Jeramie Other [employer] Other Start: 08-23-2022 Telephone encounter Dinesh Jeramie [facility] Start: 08-21-2022 End: 08-21-2022 ambulatory Dinesh Jeramie Other [employer] Other Start: 08-21-2022 Telephone encounter Dinesh Bobo [facility] Start: 08-18-2022 End: 08-18-2022 ambulatory Reza Proctor Facility:[facility] Start: 08-18-2022 End: 08-18-2022 Admission to same day surgery center Reza Proctor [facility] Start: 08-16-2022 End: 08-16-2022 ambulatory Dinesh Bobo Other [employer] Other Start: 08-16-2022 Office outpatient vi sit 15 minutes Dinesh [facility] Start: 08-14-2022 End: 08-15-[address] DINESH BOBO Facility: Start: 08-08-2022 End: 08-09-2022 ambulatory Reza Proctor Facility:[facility] Start: 08-08-2022 End: 08-08-2022 Patient encounter procedure Reza Proctor [facility] Start: 01-23-2022 End: 02-18-[address] DINESH BOBO Facility:[facility] Start: 01-12-2022 End: 01-13-[address] DINESH BOBO Facility:[facility] Start: 01-09-2022 Gynecological examination normal Dinesh Bobo Other [employer] Other Start: 11-15-2021 End: 11-15-2021 ambulatory Seb Bobo Other [employer] Other Start: 11-15-2021 Office outpatient ne w 30 minutes Seb Bobo [facility] Start: 10-31-2021 End: 11-01-[address] [...] collection please use: Cortisol PM: 2.3-11.9Performed at: [facility] [id number] Director: Lloyd Wu PhD, Phone: [phone] Start: 03-28-2024 Supine abdominal X-ray MD Dinesh [...] Bobo Other Cholecystectomy [facility]ctor Colonoscopy Reza Proctro Excision of cyst [employer] [employer] H/O: surgery Seb Jeramie Other History of total hysterectomy [employer] Procedure on brain v entricular shunt [employer] [employer] Plan of Treatment Date Care Activity Detail Author Start: 01-13-2025 Patient referral [facility] Work Phone: Start: 12-19-2024 Patient referral [facility] Work Phone: Start: 10-03-2024 [facility] Start: 03-28-2024 Elastase.pancreatic [Mass/mass] in Stool [facility] Start: 02-24-2024 Covid-19 Vaccine ( season) Covid-[address] () [facility] Start: 02-24-2024 Influenza vaccination Influenza Vacc ine (#1) [facility] Start: 01-07-2024 [facility] Start: 10-19-2023 [facility] Start: 09-07-2023 Patient referral [facility] Work Phone: Start: 2020 Diabetes Screening Diabetes Screenin g [facility] Start: 2020 Lipid panel Lipid Screening [facility] Start: 2020 Screening for malign ant neoplasm of colon [facility] Start: 2015 Screening for malign ant neoplasm of breast Mammogram Screening [facility] Start: 1996 Screening for malign ant neoplasm of cervix Cervical Cancer Screening [facility] Start: 1994 Hepatitis B Vaccine (1 of 3 - 19+ 3-dose series) Hepatitis B Vaccine (1 of 3 - 19+ 3-dose series) [facility] Start: 1994 Urine microalbumin profile DTaP,Tdap,Td Vaccine (1 - Tdap) [facility] Start: 1993 Anxiety Screening Anxiety Screening [facility] Start: 1993 Depression Screening Depression Scre ening [facility] Start: 1993 Hepatitis C screening Hepatitis C Sc reening [facility] Start: 1993 HIV screening HIV Screening [facility] CT Abdomen and Pelvis [facility] MG Breast - bilatera l Screening [facility] Patient Education [facility] Work Phone: Patient referral [facility] Work Phone: [facility] Payers Date Payer Category Payer Self-pay 2022 Private Health Insurance 1975 Unknown [id number] 2.16.84 [id number] 1975 Unknown [id number] 2.16.84 [id number] 1975 Unknown [id number] 2.16.84 [id number] 1975 Unknown [id number] 2.16.84 [id number] 1975 Unknown [id number] 2.16.84 [id number] 1975 Unknown [id number] 2.16.8 [id number] 1975 Unknown [id number] 2.16.8 [id number] 1975 Unknown [id number] 2.16.8 [id number] 1959 Unknown [id number] 2.16.8 [id number] Unknown [id number] Unknown [place] [id number] Unknown [id number] 2.16.8 [id number] Unknown [id number] 2.16.8 [id number] Unknown [id number] 2.16.8 [id number] Unknown [id number] 2.16.8 [id number] Social History Date Type Detail Facility Start: 03-12-2024 Sex Assigned At F [facility] Start: 08-08-2022 Tobacco smoking status Light tobacco smoker (finding) [facility] Start: 1975 Sex Assigned At Female F [facility] Start: 10-19-2023 End: 01-07-2024 Tobacco smoking status NHIS Smoker (finding) [facility] Tobacco smoking status GAIS Tobacco smoking consumption unknown [facility] Start: 03-12-2024 [address] of [address] [facility] National Score (1-100), lower number is lower risk [address] [facility] Start: 1975 Sex assigned at Not on file C [facility] Start: 10-01-2024 End: 11-21-2024 Sex Female (finding) [facility] Start: 01-07-2024 Tobacco smoking status GAIS Smokes tobacco daily (finding) [facility] Medical Equipment Procedure Code Equipment Code Equipment Origin al Text Equipment Identifier Dates ULNAR NERVE TRANSPOSITION Reza Proctor DO 08/18/22 Unknown Elbow L [facility] Start: 08-18-2022 ULNAR NERVE TRANSPOSITION Reza Proctor DO 08/18/22 Unknown Elbow L [employer] Start: 08-18-2022 Goals Date Patient Goal Desired Activity /State Functional Status Date Assessment Result Facility 08-08-2022 Functional Status No [facility] Clinical Notes 11-15-2021 to 01-13-2025 Note Date & Type Note Facility 01-13-2025 Hospital Discharg e instructions Ambulatory OrdersReferral to ENT Time Frame: 01/13/25, Location: None Selected [facility] Work Phone: 11-21-2024 Evaluation note Diagnosis [...] canal mass acute January 13, 2025 1:08pm [facility] [facility] Work Phone: 1(167) 958-596505-30-2025 Evaluation note* Diagnosis Onset Date Resolution Status [...] canal mass acute January 13, 2025 1:08pm [facility] Work Phone: 1(981) 922-531505-30-2025 Evaluation note* Diagnosis Onset Date Resolution Status [...] depressive disorder acute January 27, 2025 1:30pm [facility] Work Phone: 1(391) 455-224304-09-2025 Evaluation note* Diagnosis Onset Date Resolution Status Admit Date Irritable bowel syndrome wit h diarrhea acute October 01, 2024 1:54pm [facility] Work Phone: 1(427) 943-889604-09-2025 Evaluation note* Diagnosis Onset Date Resolution Status Admit Date Irritable bowel syndrome wit h diarrhea acute October 01, 2024 1:54pm Sinusitis, acute maxillary acute October 14, 2024 9:48am Class 2 obesity with body ma ss index (BMI) of 36.0 to 36.9 in adult acute November 21, 2024 1 0:55am [facility] Work Phone: 1(101) 450-238804-09-2025 Evaluation note* Diagnosis Onset Date Resolution Status Admit Date Irritable bowel syndrome wit h diarrhea acute October 01, 2024 1:54pm Sinusitis, acute maxillary acute October 14, 2024 9:48am Class 2 obesity with body ma ss index (BMI) of 36.0 to 36.9 in adult acute November 21, 2024 1 0:55am Headache acute December 19 1:01pm Intracranial shunt acute November 242024 1:01pm [facility] Work Phone: 1([phone]) 801-173001-31-2025 [facility] Reason for [...] She reports 2 events of syncope same-day [id number] as described above RESPIRATORY: Denies SOB, coughing, [...] sinus arrhythmia, RSR nelson (more content not included)...[facility]01-10-2025 Evaluation note* Diagnosis Onset Date Resolution Status Admit Date Irritable bowel syndrome wit h diarrhea acute July 04 9:19am [facility] Work Phone: 1(944) 685-772509-18-2024 History of Present illness Narrative* Shelley Gamboa APRN.AUTOMOTIVE ELECTRICIAN - 03/12/2024 5:04 PM EDT Glucose - SIBO CPT 42780 Hydrogen Breath Test Poornima Barker 1975 March 12, 2024 Referring Physician: Imelda Jiang DO Indication: NSG TEST INDICATIONS: DIARRHEA R19.7 Weight: 183 lbs Location: [facility] Duration of Test: 2 Hours Hydrogen [...] 11:00 am 10 8 3.3 1.66 Maxine Rsoa, RMA #8 - 120 minutes 11:15 am 11 9 3.1 1.77 MARTITA Bang Guidelines Baseline < 10 ppm Hydrogen (H2) > 20 ppm over baseline Methane (CH4) > 20 ppm over baseline Final Test Results: Negative physician Signature:Shelley Gamboa APRN.CNP documented in this encounterSt[facility] History and physical note Author Imelda Jiang [facility] October 19, 2023 9:55am Note Date/Time October 19, 2023 9:5 5am [facility] [address] [place] [address] Gastroenterology H&P Signed Patient: Poornima Barker MR#: [id number] : 1975 Acct:[id number] Age/Sex: 48 / F Adm Date: 4 Loc: Room: Type: [facility] Attending Dr: Imelda Jiang DO Copies [...] signed by Imelda Jiang DO> 10/19/23 0955 [facility] Work Phone: 1(363) 840-645204-26-2024 [facility] Evaluation note* Encounter Date Diagnosis Assessment Notes Treatment Notes Treatment Clinical Notes Jun, Major depressive disorder with single episode, remission status unspecified (ICD-10 - F32.9) Jun, Insomnia, unspecified (ICD-10 - G47.00) [facility] 01-05-2024 Evaluation note* Encounter Date Diagnosis Assessment Notes Treatment Notes Treatment Clinical Notes Jun, Major depressive disorder with single episode, remission status unspecified (ICD-10 - F32.9) call or come in 1 month for recheck gave counseling options Jun, Insomnia, unspecified (ICD-10 - G47.00) as above [facility] Other 02-24-2023 Evaluation + Plan noteExtracted from: Title:DARREN Post-operative Note Author:David Montaño MD Date:08/18/22 Plan Transfer/Discharge: Transfer/Discharge Discharge when meets criteria ( From PACU to Ambulatory Surgery Unit, and To home ). Extracted from: Title:DARREN Pre-operative Note Author:Marito Montaño MD Date:08/18/22 Plan [place] [employer] Anesthesiologists (ASA) physical status classification: Class II. Anesthetic Preoperative Plan: Anesthesia General. Regional Interscalene block. 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 It is therefore advised notto drive until after your first office visit following surgery. Do not drive while taking pain medication. Reza Proctor, DO [facility] [address] [place] [id number] Reviewed: 08/18/2022 06:11:36 Post Op Patient Instructions - FT (Custom) [facility]02-23-2023 Note [id number]:127[facility] 08-16-2022 Evaluation note* Encounter Date Diagnosis Assessment Notes Treatment Notes Treatment Clinical Notes Jul, Other non-recurrent acute nonsuppurative otitis media of both ears (ICD-10 - H65.193) Stop augmentin. Switch to zpack. Finish all antibiotic. Get OTC debrox for R ear treatment for cerumen. [facility] Other 07-22-2022 NotePROCEDURE: XR ELBOW LT MIN [...] Electronically authenticated by: ROSANNE PERKINS Date: 2022-01-13 07:40[facility]07-22-2022 NotePROCEDURE: XR ELBOW LT MIN 3 VIEWS, [...] Electronically authenticated by: ROSANNE PERKINS Date: 2022-01-13 07:40[facility]05-24-2022 Evaluation note* Encounter Date Diagnosis Assessment Notes [...] migraine type (ICD-10 - G43.909) October, S/P INSTRUMENT LENS GENERATOR shunt (ICD-10 - Z98.2) [facility] Other evaluation + Plan note Future Appointments Appointment Date:08/18/2022 09:30:00 AM Scheduled Provider: Location:[facility] App[facility]ment [facility] noteNo InformationNortKind[facility] Other Evaluation note* Diagnosis Onset Date Resolution Status Screening mammogram for breast cancer [facility] Work Phone: Evaluation note* Diagnosis Onset Date Resolution Status Epigastric abdominal pain ac [place] GERD (gastroesophageal reflux disease) acute Screening mammogram for breast cancer acute Chronic constipation acute Epigastric abdominal pain ac [place] GERD (gastroesophageal reflux disease) acute Screening for colon cancer a [facility] Work Phone: Evaluation note* Diagnosis Onset Date Resolution Status Diarrhea acute Epigastric abdominal pain ac [place] GERD (gastroesophageal reflux disease) [facility] Work Phone: Evaluation note* Diagnosis Onset Date Resolution Status Diarrhea [facility] Work Phone: Evaluation note* Diagnosis Diarrhea, unspecified type- Primary documented [facility] Author Imelda Jiang [facility] January 07, 2024 12:35pm Note Date/Time January 07, 2024 12:3 5pm [facility] [address] [place] [address] Gastroenterology H&P Signed Patient: Poornima Barker MR#: [id number] : 1975 Acct:[id number] Age/Sex: 48 / F Adm Date: 4 Loc: Room: Type: [facility] Attending Dr: Imelda Jiang DO Copies [...] signed by Imelda Jiang DO> 01/07/24 1235 [facility] Work Phone: History general Narrative - Reported* Type Description Date Medical History Migrande headaches Surgical History Procedure:cyst removal;Disease: 1979 Surgical History Procedure:Tonsillectomy;Disease : 1992 Surgical History Procedure:laproscopic;Disease: 1999 Surgical History Procedure: section;Dise ase: 2004 Surgical History Procedure:gallbladder;Disease: 2005 Surgical History Procedure:Hysterectomy;Disease: 2005 Surgical History Procedure:shunt in head;Disease : 2009 Hospitalization History See [email or web address] Other History general Narrative - Reported* Type Description Date Medical History Migraine headaches Medical History Pseudotumor cerebri syndrome Medical History Transfusion history Surgical History Procedure:cyst removal;Disease: 1979 Surgical History Procedure:Tonsillectomy;Disease : 1992 Surgical History Procedure:laproscopic;Disease: 1999 Surgical History Procedure: section;Dise ase: 2004 Surgical History Procedure:gallbladder;Disease: 2005 Surgical History Procedure:Hysterectomy;Disease: 2005 Surgical History Procedure:shunt in head;Disease : 2009 Hospitalization History See [employer] Other [employer] general Narrative - Reported* Type Description Date [...] Left elbow surgery 07/2022 Hospitalization History See [employer] Other Hospital course Narrative No data available for this section [facility] Dis[facility] No data available for this section [facility] Discharge instructionsAmbulatory Orders* Referral to Neurology Time Frame: 12/19/24, Location: None [facility] Work Phone: Progress note No data available for this section [facility] HospitalReason for visit NarrativeReferral Dinesh Bobo Pseudotumor Cerebri SyndromeNort [employer] Other Reason for Referral Reason *FU 11/24 Papilled carlos and Visual Field Exams with DETAILED Interpretations and Reports Please Diagnosis 1 Pseudotumor cerebri (G93.2) Referral Organization [facility] urosurgery Referring Provider First Name Seb Referring Provider Last Name Jeramie Referring Provider Specialty Neurologica l Surgery Referred Organization [facility] Referred Provider Robi Parada Referred Address [address] [place], [place],[address] Referred Provider Specialty Ophthalmolog y Referral Priority [...] March 28, 2024 End: March 28, 2024 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 Specialty Start Date End Date Dinesh Bobo MD [address] [place] [address] PCP - General Family Medicine 03/12/24 Team [...] End: February 18, 2025 CLEMENT Sanches RN ROASTER OPERATOR-C Attending Provider Active Start: February 18, 2025 End: February 18, 2025 INFORMATION SOURCE (unrecogn ized section and content) DATE CREATED AUTHOR 08/17/2022 [facility] DATE CREATED AUTHOR AUTHOR'S ORGANIZ ATION 02/25/2023 [facility] DATE CREATED AUTHOR AUTHOR'S ORGANIZ ATION 05/25/2024 [facility] DATE CREATED AUTHOR AUTHOR'S ORGANIZ ATION 07/28/2024 [facility] DATE CREATED AUTHOR AUTHOR'S ORGANIZ ATION 11/08/2024 [facility] REASON FOR VISIT (unrecogniz [...] or prosecute any alcohol or drug abuse patient.[facility] FOR RECORDS PERTAINING TO PATIENTS WHO [...] BE BASED ON THE PRIMARY CLINICAL RECORDS. [facility] [employer] [facility]. provides no warranty or guarantee of the accuracy or completeness of information in this document.
--- NOTE | 2025-03-09 07:21 | CA_ITS ---
Patient Name: POORNIMA RIVERA MR#: [id number] : 1975 Exam Date: 03/09/2025 Ordering Doctor: MICAH QUARLES ECHOCARDIOGRAM REPORT PROCEDURE: CA ECHO DOPPLER COMPLETE INDICATIONS: chest pain, smoker COMPARISON: None. DESCRIPTION: COMPLETE ECHOCARDIOGRAM Real-time transthoracic echocardiography with 2D, M-mode, spectral and color flow Doppler performed. QUALITY: Technical quality was good. LEFT VENTRICLE: Normal chamber size. Normal left ventricular wall thickness. LV EF: Global left ventricular systolic function is normal; visually estimated ejection fraction is 60 to 65%. No obvious wall motion abnormalities. DIASTOLIC: Normal diastolic function. ATRIAL SEPTUM: Inadequately seen. LEFT ATRIUM: Normal chamber size. RIGHT ATRIUM: Normal chamber size. RIGHT VENTRICLE: Normal chamber size. Normal right ventricular systolic function. TRICUSPID VALVE: Normal mobility and thickness. No stenosis with trivial regurgitation. No evidence of pulmonary hypertension. RVSP 23 mmHg MITRAL VALVE: Normal mobility and thickness. No evidence of mitral valve stenosis. There is no mitral annular calcification. No mitral regurgitation. AORTIC VALVE: Normal trileaflet appearance. No visible sclerosis. Normal leaflet mobility. No evidence of aortic valve stenosis. No aortic regurgitation. AORTIC ROOT: Normal diameter and appearance. Ascending aorta is normal in size. PULMONIC VALVE: Not well visualized. No stenosis. No regurgitation. PERICARDIUM: Anterior free space; trivial effusion versus fat pad. IVC: Collapses with inspiration. IVC is normal in size. CONCLUSION: 1. Global left ventricular systolic function is normal; visually estimated ejection fraction is 60 to 65% 2. Normal right ventricular size and systolic function 3. Normal diastolic function 4. The left atrium is normal in size 5. No significant valvular abnormalities 6. Anterior free space; trivial effusion versus fat pad Adult Echocardiography Procedure Report Left Ventricle LVEDD (3.7 - 5.6 cm): 4.36 cm LVESD (2.2 - 4.0 cm): 3.07 cm LVIVS thickness (0.6 - 1.2 cm): 0.96 cm LVPW thickness (0.5 - 1.0 cm): 1.02 cm e': 0.08 m/s E - e': 11.79 LVOT Max Gradient: 2.63 mm[Hg] LVOT Area (cm2): 0.81 m/s Peak Velocity (LVOT): 0.81 m/s LVOT Diameter 2.31 cm Left Atrium LA Volume Index (2D A2C): 24.85 ml/m2 Left Atrium Systolic Dimension: 3.57 cm Mitral Valve MV E to A Ratio: 1.13 Mitral Valve A-Wave Peak Velocity: 0.80 m/s Mitral Valve E-Wave Peak Velocity: 0.90 m/s Right Ventricle Aorta AO Root Diam: 3.90 cm Ascending Ao Diam: 3.17 cm Aortic Valve AoV Area (Peak Edvin): 3.33 cm2, 3.33 cm2 Peak Velocity(Antegrade Flow): 1.02 m/s Peak Gradient(Antegrade Flow): 4.15 mm[Hg] Tricuspid Valve Peak Velocity (Regurgitant Flow): 2.25 m/s Pulmonic Valve Peak Velocity: 0.56 m/s Peak Gradient: 1.42 mm[Hg], 1.06 mm[Hg] Right Atrium Right Atrium Systolic Pressure: 45.81 ml, 45.81 ml Dictated by: Shilpa Ledesma M.D. on 03/10/2025 at 16:10 Approved by: Shilpa Ledesma M.D. on 03/10/2025 at 16:12
--- NOTE | 2025-03-09 07:26 | ECG_ITS ---
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
[2025-03-09 07:41] LABS: Hematocrit 33.7 % (36.0-48.0); Hemoglobin 11.2 g/dL (12.0-16.0); Mean Corpuscular HGB Conc 33.2 g/dL (29.9-35.2); Mean Corpuscular Hemoglobin 29.2 pg (26.7-34.0); Mean Corpuscular Volume 87.8 fL (81.0-99.0); Platelet Count 281 10^3/uL (150-450); Red Blood Count 3.84 10^6/uL (4.20-5.40); White Blood Count 9.8 10^3/uL (4.0-11.0)
--- NOTE | 2025-03-09 08:15 | CM.NOTE ---
Rounds made with Dr. Levi, discussed with pt reason for admission and lab work. Pt will have echo today and cardiology consult for further recommendations. Pt verbalizes understanding.
--- NOTE | 2025-03-09 08:15 | CM.NOTE ---
Discussed status with Dr. Levi, pt will remain in OBS status.
--- NOTE | 2025-03-09 08:35 | P.HP_ITS ---
HPI H&P: HPI History of Present Illness Chief complaint: Chest Pain Narrative: Mrs. Barker is a 49-year-old female with no significant past medical history. She came in with chest pain and the shortness of breath. While patient was taking a shower she developed shortness of breath. Shortly after that she developed left-sided chest pain with radiation toward the left jaw, left arm, tingling in the left arm. She felt sick and nauseous. She was brought to the emergency room department. She was given nitroglycerin. Her symptoms subsided. Patient denies any fever or chills. No cough or congestion. Her shortness of breath and chest pain had resolved. No prior history of heart disease. No hypertension or diabetes. She smokes half a pack daily. Family history of mitral valve disease. Opioid HPI Opioid Management Most Recent Pain and Opioid Data: Last Pain Scale 0 Today, 00:48 Last Pain Assessment Today, 02:58 Last ED Pain Assessment Today, 00:48 Last ORT Total Score 0 Today, 02:12 Last ORT Risk Category Low Risk Today, 02:12 Review of Systems ROS Status of ROS 10 or more systems reviewed and unremark able except as noted in history and below [facility] Medical History (Updated 03/09/25 @ 02:57 by Maryse Vincent RN) Anxiety ?F41.9 - Anxiety disorder, unspecified (ICD-10) Depression ?F32.A - Depression, unspecified (ICD-10) Surgical History (Updated 03/09/25 @ 02:58 by Maryse Vincent RN) H/O esophagogastroduodenoscopy ?Z98.890 - Other specified postprocedural states (ICD-10) History of colposcopy ?Z98.890 - Other specified postprocedural states (ICD-10) Hx of exploratory laparotomy ?Z98.890 - Other specified postprocedural states (ICD-10) Hx of cholecystectomy ?Z90.49 - Acquired absence of other specified parts of digestive tract (ICD- 10) History of tonsillectomy and adenoidectomy ?Z90.89 - Acquired absence of other organs (ICD-10) History of hysterectomy ?Z90.710 - Acquired absence of both cervix and uterus (ICD-10) Family History (Updated 03/09/25 @ 02:11 by Maryse Anstead, RN) Mother Mitral valve prolapse Family history of cancer Sister Mitral valve prolapse Father Family history of stroke DVT (deep venous thrombosis) Social History (Updated 03/09/25 @ 02:12 by Maryse Vincent RN) Within the past year, how often did you have a drink containing alcohol: monthly or less Within the past year, how many standard drinks containing alcohol did you have on a typical day: 1 or 2 Within the past year, how often did you have six or more drinks on one occasion: never Total score: 0 Score interpretation: A score less than 3 is consistent with normal alcohol consumption. Smoking status: Current every day smoker Non-prescribed substance use: denies use Highest level of school completed/degree received: high school graduate Are you now , , , , never or living with a partner: Little interest or pleasure in doing things: not at all Feeling down, depressed, or hopeless: not at all Do you think of yourself as: straight/heterosexual Gender Identity: female Meds Home Medications and Allergies Home Medications ?Medication ?Instructions ?Recorded ?Confirmed ?Type buspirone 5 mg tablet 5 mg PO DAILY PRN anxiety 03/09/25 History escitalopram oxalate 20 mg tablet 20 mg PO DAILY 03/0903/09/25 History esomeprazole magnesium 20 mg 20 mg PO DAILY 03/09/25 0 03/09/25 History capsule,delayed release (Nexium) trazodone 150 mg tablet 150 mg PO BEDTIME 03/09/25 0 03/09/25 History Allergies Allergy/AdvReac Type Severity Reaction Status Date / Time Sulfa (Sulfonamide Allergy Severe Unknown Verified 05/24/24 00:39 Antibiotics) Exam Narrative Exam Narrative: [pt is awake and alert. oriented to place, time and person HEENT: [place] conjunctiva and NL buccal mucosa Neck: Supple, no tenderness Endocrine: No Thyromegaly. Vascular: No JVD or carotid bruit. Lymphatic: No cervical lymphadenopathy. Chest: CTA no DTP. Heart RRR, no extra sound or murmur. Abd: Soft, no tenderness, no rebound and no rigidity. Increase abd girth therefore clinically I could not exclude the possibility of intra abd mass or organomegaly. Patient has mild tenderness in the left upper quadrant of the left breast, left upper chest wall near the anterior axillary line around 2:00 o'clock. I did not examine the breast comprehensively. LE: No cyanosis or clubbing, no varices or edema. Neuro: A A O. Nl speech, comprehension and attention. Nl and symetrical motor and tone examination through out. []] Constitutional Vital Signs, click to edit/add: Last Vital Signs Temp 97.5 F L 03/09/25 07:55 Pulse 68 03/09/25 08:00 Resp 16 03/09/25 07:55 BP 108/71 03/09/25 07:55 Pulse Ox 94 L 03/09/25 07:55 O2 Del Method Room Air 03/09/25 07:55 Results Labs Labs: Short CBC 03/08/25 03/09/25 Range/Units 22:00 07:34 WBC 13.0 H 9.8 (4.0-11.0) 10^3/uL Hgb 12.8 11.2 L (12.0-16.0) g/dL Hct 38.3 33.7 L (36.0-48.0) % Plt Count 353 281 (150-450) 10^3/uL BMP 03/08/25 22:00 Sodium 145 Potassium 3.7 Chloride 109 H Carbon Dioxide 21.0 BUN 16.0 Creatinine 1.15 H Glucose 129 H Calcium 8.8 Assessment and Plan Assessment and Plan (1) Chest pain: Plan Chest pain as described above, heaviness in the chest, radiation to the left jaw and arm, tingling in the left arm, responded to nitroglycerin given to the emergency room department. EKG does not show ST elevation or depression Serial troponin are negative. CT chest is negative for dissection or pulmonary embolism or pneumothorax or pneumonia. I suspect that this could be angina. I started patient on aspirin. Avoid beta-clarisa due to borderline bradycardia. Echocardiogram rule out cardiomyopathy or valvular disease. Cardiac consultation for possible need of ischemic evaluation Shortness of breath preceded chest pain. CT scan does not show any pulmonary embolism or pneumothorax. CT showed bronchial thickening as read by radiologist. Patient denies any cough. She denies any shortness of breath now. Patient smoked for a long time. She smokes half a pack daily She may have underlying obstructive pulmonary disease I started patient on doxycycline and 1 dose of Decadron I requested influenza testing. Mild tenderness in the left upper quadrant of the chest wall, left upper corner of the left breast near the anterior axillary line. I would recommend patient to have comprehensive breast exam to be handled by PCP. Recommend mammogram plus?minus ultrasound plus minus MRI to be arranged by PCP. 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 To be addressed and followed up in the outpatient setting. Tobacco addiction. Half pack daily Counseling and the patient to quit smoking. Anemia, no evidence of acute blood loss. Patient will likely require to have anemia workup to be done in the outpatient setting to be handled by PCP in collaboration with other needed outpatient providers. This may include but not limited to EGD, colonoscopy, referral to see hematology and other needed age-appropriate cancer screening. Chronic medical conditions not listed above, incidental findings seen on labs and imaging. These would need to be addressed. Could be addressed when time and condition are appropriate. Could be addressed in the outpatient setting by PCP collaboration with other needed outpatient providers.
[2025-03-09 08:41] LABS: Alanine Aminotransferase 14 U/L (14-59); Albumin Globulin Ratio 0.9; Albumin Level 2.8 g/dL (3.4-5.0); Alkaline Phosphatase 64 U/L (46-116); Anion Gap 13.0; Aspartate Amino Transferase 12 U/L (15-37); Blood Urea Nitrogen 16.0 mg/dL (7.0-18.0); Calcium 8.3 mg/dL (8.5-10.1); Carbon Dioxide 26.8 mmol/L (21.0-32.0); Chloride 108 mmol/L (98-107); Estimated GFR (African America >60 (>=60 mL/min/1.73m^2); Estimated GFR (Non-African Ame >60 (>=60 mL/min/1.73m^2); Globulin 3.2 g/dL; Glucose 95 mg/dL (74-106); Potassium 3.8 mmol/L (3.5-5.1); Sodium 144 mmol/L (136-145); Total Protein 6.0 g/dL (6.4-8.2)
[2025-03-09 09:02] LABS: Cholesterol 178 mg/dL (<=200); HDL Cholesterol 42 mg/dL (40-60); Triglycerides 210 mg/dL (<=150); VLDL CHOLESTEROL 42.0 mg/dL
[2025-03-09] MEDS: ASPIRIN 325 MG TABLET PO (09:09)
[2025-03-09] MEDS: PANTOPRAZOLE SODIUM 40 MG TABLET.DR PO (09:09)
[2025-03-09] MEDS: DOXYCYCLINE MONOHYDRATE 100 MG CAPSULE PO ×2 (09:10→21:39)
[2025-03-09] MEDS: DEXAMETHASONE SOD PHOS 4 MG/ML VIAL 10 MG IV (09:10)
[2025-03-09] MEDS: ESCITALOPRAM 10 MG TABLET 20 MG PO (09:10)
[2025-03-09] MEDS: BUSPIRONE HCL 10 MG TABLET 5 MG PO ×2 (12:34→21:39)
[2025-03-09] MEDS: ACETAMINOPHEN 325 MG TABLET 650 MG PO (12:34)
--- NOTE | 2025-03-09 12:36 | PC.NURSE ---
per patient she takes 5mg of buspar BID. Dr. Levi notified of this and that its only ordered as daily, awaiting any orders
--- NOTE | 2025-03-09 13:09 | PC.NURSE ---
Dr. Levi notified that patient is reporting nausea
[2025-03-09] MEDS: TRAMADOL HCL 50 MG TABLET PO ×2 (13:28→21:39)
--- NOTE | 2025-03-09 14:19 | PM.CACN ---
History of Present Illness History of Present Illness Consult date: 03/09/25 Requesting physician: Stanley Levi Consult reason: chest pain Chief complaint: Chest Pain Narrative: Katherin Barker is a 49 yo female with medical history of anxiety, GERD, migraines, and pseudotumor cerebri s/p shunt placement in 2011. She presented with radiating chest pain and shortness of breath. While patient was taking a shower she developed shortness of breath and chest pain. Shortly after, she developed left-sided chest pain with radiation toward the left jaw, left arm, tingling in the left arm. She felt sick and nauseous. She was brought to the emergency room department. She was given nitroglycerin and her symptoms subsided. Patient denies any fever or chills. No cough or congestion. Her shortness of breath and chest pain had resolved. No prior history of heart disease. No hypertension or diabetes. She smokes half a pack daily. Family history of mitral valve disease. Workup thus far has been unremarkable. Seral troponins negative, no ischemic changes on 12 lead ecg, CT chest negative for PE or pneumothorax. Review of Systems ROS Status of ROS 10 or more systems reviewed and unremarkable except as noted in history and below Neurological Reports: headache PFSH PFSH Medical History (Updated 03/09/25 @ 02:57 by Maryse Vincent RN) Anxiety ?F41.9 - Anxiety disorder, unspecified (ICD-10) Depression ?F32.A - Depression, unspecified (ICD-10) Surgical History (Updated 03/09/25 @ 02:58 by Maryse Vincent RN) H/O esophagogastroduodenoscopy ?Z98.890 - Other specified postprocedural states (ICD-10) History of colposcopy ?Z98.890 - Other specified postprocedural states (ICD-10) Hx of exploratory laparotomy ?Z98.890 - Other specified postprocedural states (ICD-10) Hx of cholecystectomy ?Z90.49 - Acquired absence of other specified parts of digestive tract (ICD-10) History of tonsillectomy and adenoidectomy ?Z90.89 - Acquired absence of other organs (ICD-10) History of hysterectomy ?Z90.710 - Acquired absence of both cervix and uterus (ICD-10) Family History (Updated 03/09/25 @ 02:11 by Maryse Vincent RN) Mother Mitral valve prolapse Family history of cancer Sister Mitral valve prolapse Father Family history of stroke DVT (deep venous thrombosis) Social History (Updated 03/09/25 @ 02:12 by Maryse Vincent RN) Within the past year, how often did you have a drink containing alcohol: monthly or less Within the past year, how many standard drinks containing alcohol did you have on a typical day: 1 or 2 Within the past year, how often did you have six or more drinks on one occasion: never Total score: 0 Score interpretation: A score less than 3 is consistent with normal alcohol consumption. Smoking status: Current every day smoker Non-prescribed substance use: denies use Highest level of school completed/degree received: high school graduate Are you now , , , , never or living with a partner: Little interest or pleasure in doing things: not at all Feeling down, depressed, or hopeless: not at all Do you think of yourself as: straight/heterosexual Gender Identity: female Meds Home Medications and Allergies Home Medications ?Medication ?Instructions ?Recorded ?Confirmed ?Type buspirone 5 mg tablet 5 mg PO DAILY PRN anxiety 03/09/25 03/09/25 History escitalopram oxalate 20 mg tablet 20 mg PO DAILY 03/09/25 03/09/25 History esomeprazole magnesium 20 mg 20 mg PO DAILY 03/09/25 03/09/25 History capsule,delayed release (Nexium) trazodone 150 mg tablet 150 mg PO BEDTIME 03/09/25 03/09/25 History Allergies Allergy/AdvReac Type Severity Reaction Status Date / Time Sulfa (Sulfonamide Allergy Severe Unknown Verified 05/24/24 00:39 Antibiotics) Exam Constitutional Vital Signs, click to edit/add: Last Vital Signs Temp 98.0 F 03/09/25 12:35 Pulse 76 03/09/25 14:00 Resp 18 03/09/25 12:35 BP 110/71 03/09/25 12:35 Pulse Ox 94 L 03/09/25 12:35 O2 Del Method Room Air 03/09/25 12:35 Cardio Common normals: no JVD, regular rate, regular rhythm, S1 normal heart sound and S2 normal heart sound Rhythm: regular rhythm Heart sounds: S1 normal and S2 normal Results Labs and Meds Lab results: Cardiac Enzymes 03/09/25 Range/Units 07:34 AST 12 L (15-37) U/L Lipids 03/09/25 Range/Units 07:34 Triglycerides 210 H (<=150) mg/dL Cholesterol 178 (<=200) mg/dL HDL Cholesterol 42 (40-60) mg/dL Cholesterol/HDL Ratio 4.2 CBC 03/08/25 03/09/25 Range/Units 22:00 07:34 WBC 13.0 H 9.8 (4.0-11.0) 10^3/uL RBC 4.38 3.84 L (4.20-5.40) 10^6/uL Hgb 12.8 11.2 L (12.0-16.0) g/dL Hct 38.3 33.7 L (36.0-48.0) % Plt Count 353 281 (150-450) 10^3/uL Neut # (Auto) 9.0 H (1.4-6.5) 10^3/uL Lymph # (Auto) 2.8 (1.2-3.8) 10^3/uL [place] # (Auto) 0.8 (0.3-0.8) 10^3/uL Eos # (Auto) 0.3 (0.0-0.7) 10^3/uL Baso # (Auto) 0.1 (0.0-0.1) 10^3/uL Comprehensive Metabolic Panel 03/08/25 03/09/25 Range/Units 22:00 07:34 Sodium 145 144 (136-145) mmol/L Potassium 3.7 3.8 (3.5-5.1) mmol/L Chloride 109 H 108 H (98-107) mmol/L Carbon Dioxide 21.0 26.8 (21.0-32.0) mmol/L BUN 16.0 16.0 (7.0-18.0) mg/dL Creatinine 1.15 H 0.89 (0.55-1.02) mg/dL Glucose 129 H 95 (74-106) mg/dL Calcium 8.8 8.3 L (8.5-10.1) mg/dL AST 12 L (15-37) U/L ALT 14 (14-59) U/L Alkaline Phosphatase 64 (46-116) U/L Total Protein 6.0 L (6.4-8.2) g/dL Albumin 2.8 L (3.4-5.0) g/dL Intake and Output 03/08/25 03/09/25 03/09/25 23:59 07:59 15:59 Intake Total 1000 / 1000 Balance 1000 / 1000 Intake: IV 1000 / 1000 0.9 % Sodium Chloride 1,000 ml 1000 / 1000 @ 999 mls/hr IV .Q1H1M ONE Rx#: [id number] Other: Weight 85.729 kg 88.7 kg Assessment and Plan Assessment and Plan (1) Chest pain: Plan #Chest pain #SOB Currently denies chest pain Initial features concerning for angina (radiation to jaw/arm, nausea, relief with nitroglycerin), but initial workup was reassuring: serial troponins negative, no ischemic ECG changes, and CT chest negative for PE, dissection, or pneumothorax. TTE 06/27/2024: EF 55%, no significant valvular abnormalities. Pro BNP 63 on 03/08/25. No mention of coronary calcifications on CT report. Remains on room air, denies SOB SR 70's per tele review, BP today 110/71 Given absence of known CAD, diabetes, or hypertension, cardiac risk is low-intermediate for definitive risk stratification -Outpatient stress test for definitive risk stratification -Lipid panel #Pseudotumor cerebri #Hx of shunt placement History of pseudotumor cerebri s/p shunt placement in 2011 C/o chronic migraines -She is scheduled Sunday for FU appointment with neurology #H/o of syncope Denies Seen on 07/25/2024 as new patient by Dr. Hernandez TSH and cortisol levels were checked at that time No further recommendations due to no recurrence of dizziness for > 2 months Syncope was deemed related to orthostatic hypotension and dehydration She was advised if she has further episodes of dizziness then a 30d event would be placed #HLD LDL 94, HDL 42, triglycerides 210, total cholesterol 178 Stable #Tobaco dependence 1/2 PPD smoker Plan: -Recommend outpatient stress test for definitive risk stratification -Lipid panel Case discussed with Dr. Baltazar Mejía, [facility] Cardiovascular Medicine
--- NOTE | 2025-03-09 16:06 | PC.NURSE ---
Dr. Levi notified of cardios plan
[2025-03-09] MEDS: IBUPROFEN 600 MG TABLET PO (23:17)
[2025-03-10] VITALS (8 sets, daily range): BP systolic 106–112; BP diastolic 70–75; PULSE 56–96; TEMP 36.6; O2SAT 90–92
[2025-03-10] MEDS: DOXYCYCLINE MONOHYDRATE 100 MG CAPSULE PO (08:35)
[2025-03-10] MEDS: ASPIRIN 325 MG TABLET PO (08:35)
[2025-03-10] MEDS: ESCITALOPRAM 10 MG TABLET 20 MG PO (08:35)
[2025-03-10] MEDS: PANTOPRAZOLE SODIUM 40 MG TABLET.DR PO (08:35)
[2025-03-10] MEDS: BUSPIRONE HCL 10 MG TABLET 5 MG PO (08:35)
--- NOTE | 2025-03-10 09:30 | CM.NOTE ---
Rounds made with Dr. Levi, pt will discharge to home today and f/u with PCP and Cardiology. CM will call cardiology regarding echo report and scheduling outpatient stress test.
--- NOTE | 2025-03-10 10:12 | CM.NOTE ---
Called Centralized scheduling precert started for stress test. Updated scheduling that pt would need stress test completed before March 20.
--- NOTE | 2025-03-10 10:14 | CM.NOTE ---
Laura from [facility] cardiology clinic will send message for read on echo, pt pending D/C.
--- NOTE | 2025-03-10 11:57 | P.DS_ITS ---
DS: Providers Provider Date of admission: 03/09/25 02:00 Primary care physician: Birgit Baldwin MD Consults: 03/09/25 Consult to Cardiology Routine Reason for consultation: chest pain, probable angina DS: Diagnosis Discharge Diagnosis (1) Chest pain: (2) Migraine: Plan As listed above, below and others that are not listed DS: Summary Hospital Course Hospital Course: Mrs. Barker is a 49-year-old female who came in with shortness of breath and chest pain. She was placed under observation. Chest pain had resolved. Shortness of breath had completely resolved. No fever or chills. Minimal cough. No abdominal pain, nausea or vomiting. Chest pain as described on H&P, heaviness in the chest, radiation to the left jaw and arm, tingling in the left arm, responded to nitroglycerin given to the emergency room department. EKG does not show ST elevation or depression Serial troponin are negative. CT chest is negative for dissection or pulmonary embolism or pneumothorax or pneumonia. I suspect that this could be angina. I started patient on aspirin. Avoid beta-clarisa due to borderline bradycardia. Echocardiogram rule out cardiomyopathy or valvular disease. This is still pending Cardiac consultation for possible need of ischemic evaluation. Lipid panel showed good cholesterol. LDL is 94 and HDL is 42. Patient was seen by cardiology team who cleared the patient to be discharged home and have an outpatient stress test. Stress test's been processed and a precertified by insurance [employer] before scheduled. Patient is chest pain-free. I will follow cardiology recommendation given their expertise in cardiovascular evaluation, risk stratification and management Shortness of breath preceded chest pain. CT scan does not show any pulmonary embolism or pneumothorax. CT showed bronchial thickening as read by radiologist. Patient denies any significant cough. She denies any shortness of breath now. Patient smoked for a long time. She smokes half a pack daily She may have underlying obstructive pulmonary disease I started patient on doxycycline and 1 dose of Decadron. Resolution of cough. Continue robotic for the next 5 days I requested influenza testing. This came back negative. Mild tenderness in the left upper quadrant of the chest wall, left upper corner of the left breast near the anterior axillary line. I would recommend patient to have comprehensive breast exam to be handled by PCP. Recommend mammogram plus?minus ultrasound plus minus MRI to be arranged by PCP. 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 To be addressed and followed up in the outpatient setting. Tobacco addiction. Half pack daily Counseling and the patient to quit smoking. Slightly positive D-dimer. Negative CTA for pulmonary embolism. No clinical evidence of DVT in both legs. No swelling or tenderness. No strong justification for ultrasound imaging. This may need to be monitored in the outpatient setting. I would recommend age-appropriate cancer screening to be completed in the outpatient setting by PCP. Anemia, no evidence of acute blood loss. Patient will likely require to have anemia workup to be done in the outpatient setting to be handled by PCP in collaboration with other needed outpatient providers. This may include but not limited to EGD, colonoscopy, referral to see hematology and other needed age-appropriate cancer screening. History of migraines. Instructed patient to avoid using any Zomig and or Imitrex or any other triptan due to increased risk of coronary bronchospasm Chronic medical conditions not listed above, incidental findings seen on labs and imaging. These would need to be addressed. Could be addressed when time and condition are appropriate. Could be addressed in the outpatient setting by PCP collaboration with other needed outpatient providers. Patient has multiple medical issues as listed above and others that are not listed. All appear to be stable. She is cleared by cardiology to be discharged home. She is feeling great and eager to be discharged home physical and psychologically. At this time, I do not have any clear or strong clinical justification to extend inpatient hospitalization against cardiology clearance a nd the patient's readiness to be discharged. Patient however will require close and frequent monitoring as well as additional work-up, investigation and therapeutic intervention that could take place from this point on post discharge. That is to prevent relapse, decompensation, rehospitalization and other medical implications. I instructed patient to ask her primary care doctor to obtain [facility] record entirely to address abnormalities seen on labs and imaging that I have and have not addressed during this hospitalization, follow-up on pending blood work, imaging and pathology is if available and to follow-up on needed medical care in the outpatient setting. Time Spent with Patient Time attestation: Total time spent providing and/or coordinating discharge services: Time spent: greater than 30 minutes Exam Constitutional Vital Signs, click to edit/add: Last Vital Signs Temp 97.9 F 03/10/25 09:03 Pulse 59 L 03/10/25 10:00 Resp 18 03/10/25 09:03 BP 112/75 03/10/25 09:03 Pulse Ox 92 L 03/10/25 09:03 O2 Del Method Room Air 03/10/25 09:03 Discharge Plan Discharge Disposition: Home, Self-Care Discharge Medications: New doxycycline monohydrate 100 mg Capsule 100 mg PO BID Qty: 12 0RF aspirin 81 mg tablet 81 mg PO DAILY Qty: 30 1RF nitroglycerin 0.4 mg tablet, sublingual 0.4 mg sublingual Q5M PRN (Reason: chest pain) Qty: 30 0RF Rx Instructions: do not exceed 3 doses per episode Continued buspirone 5 mg tablet 5 mg PO DAILY PRN (Reason: anxiety) trazodone 150 mg tablet 150 mg PO BEDTIME escitalopram oxalate 20 mg tablet 20 mg PO DAILY esomeprazole magnesium [Nexium] 20 mg capsule,delayed release(DR/EC) 20 mg PO DAILY Ubrelvy 100 mg tablet 100 mg PO DAILY PRN (Reason: migraine headache) Print Language: Croatian Activity Restrictions/Additional Instructions: I may not have addressed or treated all of your medical illnesses or the abnormal blood work or imaging studies during this hospitalization. Please ask your primary care provider to obtain [facility] records entirely to follow up on all of the abnormal physical, laboratory, and imaging findings that I have not addressed. Please return back to the emergency room or seek medical attention if your symptoms worsen or return. Please return back to the emergency room if you develop any chest pain Please follow-up on the schedule stress test. Echocardiogram is not yet read and completed. Please ask your primary care doctor to follow-up on pending result. I would recommend that your primary care doctor perform comprehensive breast exam and may need to order ultrasound of the left breast given the pain and tenderness in the left upper corner of the left breast. I also recommend Pat your primary care doctor arrange for age-appropriate cancer screening such as colonoscopy, pelvic exam and others and to follow-up on D-dimer elevation. Discharging you from [facility] does not mean that your medical care ends here and now. You may still need additional monitoring, work up, investigation, and treatment plan to be handled from this point on by out patient providers including your primary care provider and specialists. For any medication question, please contact your retail pharmacist or your [facility] care provider. Thank you. [employer] Associate[employer] Team Member Instructions: Stress test is ordered and Centralized scheduling will call to set up date and time. Forms: Portal Instructions Follow Up Appointments: Follow up with Dr Baldwin Mar 16 at 2:30PM ([phone]) [facility] at [facility] @ 10:20 # [phone]
--- NOTE | 2025-03-11 15:43 | CM.DCFOLLOWU ---
Person spoke with:patient How are you feeling?well How is your pain?none Did you understand your discharge instructions?yes Do you have any questions about your discharge instructions?no Were you given any prescriptions at discharge?yes Were you able to get your prescriptions filled?yes Do you understand how to take your medications as ordered?yes Do you have any questions about your follow up appointment and do you plan to keep your follow up appointment? no questions, stress test scheduled for tomorrow and we reviewed other follow up apts. Is there anything else that you would like to discuss?no Questions/Comments/Concerns/Other: none
== END 2025-03-10 12:54 | disposition home or self-care (01) ==
LOC: ER 03-09 01:29 → MS 03-09 02:03
PROVIDERS: Admitting Provider Internal Medicine; Emergency Provider Internal Medicine; PCP Family Medicine; Visit Provider Internal Medicine
DX: R07.9 Chest pain, unspecified (principal); G43.909 Migraine, unspecified, not intractable, without status migrainosus; F17.210 Nicotine dependence, cigarettes, uncomplicated; R06.02 Shortness of breath; R07.89 Other chest pain; N18.30 Chronic kidney disease, stage 3 unspecified; D64.9 Anemia, unspecified; R79.89 Other specified abnormal findings of blood chemistry; N18.2 Chronic kidney disease, stage 2 (mild); Z90.49 Acquired absence of other specified parts of digestive tract; F41.9 Anxiety disorder, unspecified; K21.9 Gastro-esophageal reflux disease without esophagitis; E78.5 Hyperlipidemia, unspecified; G93.2 Benign intracranial hypertension
CPT/HCPCS: 36415; 71045; 71275; 80048; 80053; 80061; 83880; 84484; 85025; 85027; 85378; 86140; 87804; 93005; 93306; 96374; 99285; 99406; G0378; J1100; Q9967

== ENCOUNTER 2025-03-12 07:15 | Outpatient (OUT) | payer OTHER, SELFPAY ==
--- NOTE | 2025-03-12 06:50 | NM_ITS ---
Patient Name: POORNIMA RIVERA MR#: [id number] : 1975 Exam Date: 03/12/2025 Ordering Doctor: LUCY SONI RADIOLOGY REPORT PROCEDURE: NM ANDRÉS PERF SPECT REST STR COMPARISON: None. INDICATIONS: CHEST PAIN, ABNORMAL EKG TECHNIQUE: Exam Description: Stress/Rest one day protocol gated SPECT Rest Imagin.0 mCi Tc-99m Cardiolite IV on 03/12/2025 Stress Imaging 29.8 mCi Tc-99m Cardiolite IV on 03/12/2025 Exercise Protocol: Vince Heart Rate (bpm): Rest: 67 Max: 148/ PMHR: 86 Blood Pressure: Rest: 100/72 Max: 118/76 Exercise Time: Minutes: 6 Seconds: 04 Stage Reached: Stage: 3 Mets 7.0 Symptoms: Rest and peak stress ECG findings were pending, and the exercise portion of the study was pending per attending physician [facility]. For more details, please see separate cardiac stress test report. FINDINGS: QUALITY OF STUDY: Adequate PERFUSION DEFECT: LOCATION: Anterior SIZE: Moderate SEVERITY: Mild TYPE: Fixed WALL MOTION: Normal wall motion LV SIZE: 63 mL. TID / TCD: 0.8 LVEF: Calculated EF 71%. SUMMARY: Myocardial perfusion imaging study is normal CONCLUSION: 1. Myocardial perfusion is probably normal with breast and diaphragmatic attenuation 2. Global left ventricular systolic function is normal; EF is 71% 3. No significant transient ischemic dilatation Dictated by: Shilpa Ledesma M.D. on 03/16/2025 at 09:37 Approved by: Shilpa Ledesma M.D. on 03/16/2025 at 09:40
--- OUTSIDE RECORDS SUMMARY | 2025-03-12 07:17 | XMS_ITS | Continuity of Care Document ---
Author Organization [facility] Address [address] [place] [id number] Phone Care Team Providers Care Warp Dresser Name Role Phone Birgit Baldwin MD Primary Care Provider Birgit Baldwin MD Attending Provider Jaylin Carrero APRN Attending Provider Care Teams Patient Care Team Team Status: Active Member Role Status Dates Birgit Baldwin MD Primary Care Provider Active Visit Care Team Team Status: Inactive Member Role Status Dates Birgit Baldwin MD Primary Care Provider Active Start: December 19, 2024 End: December 19, 2024 Birgit Baldwin MD Attending Provider Active St art: December 19, 2024 End: December 19, 2024 Visit Care Team Team Status: Inactive Member Role Status Dates Birgit Baldwin MD Primary Care Provider Active Start: January 13, 2025 End: January 13, 2025 Birgit Baldwin MD Attending Provider Active St art: January 13, 2025 End: January 13, 2025 Visit Care Team Team Status: Inactive Member Role Status Dates Birgit Baldwin MD Primary Care Provider Active Start: January 27, 2025 End: January 27, 2025 Birgit Baldwin MD Attending Provider Active St art: January 27, 2025 End: January 27, 2025 Patient Care Team Team Status: Inactive Member Role Status Dates Birgit Baldwin MD Primary Care Provider Active Start: February 18, 2025 End: February 18, 2025 CLEMENT Sanches RN AUTOMOTIVE TECHNOLOGY INSTRUCTOR-C Attending Provider Active Start: February 18, 2025 End: February 18, 2025 Chief Complaint and Reason for Visit Chief Complaint Admit Date headache follow up December 19, 2024 1:01 [...] 0pm Major depressive disorder January 27 1:30pm Reason for Referral Referring Provider Name Referring Provider Address Referring Provider Phone Referral Date Requested Appointment Date Referral Reason Birgit Baldwin [address] [id number] Work Phone: January 13, 2025 H93.8X9 - Other specified disorders of ear, unspecified ear January 13, 2025 H93. 8X9 - Other specified disorders of ear, unspecified ear December 19, 2024 R51. 9 - Headache, unspecified,Z98.2 - Presence of cerebrospinal fluid drainage device Allergies, Adverse Reactions, Alerts Allergen Type Severity Reaction Last Updated Verified Status cefdinir Allergy Unknown Hives February 18, 2 025 10:39am Yes Active sulfadiazine Allergy Unknown Comment:Sulfa February 182024 10:39am Yes Active sulfanilamide Allergy Unknown Hives January 10:39am Yes Active Social History Smoking Status Status Start Date End Date Date of Observa tion Smokes tobacco daily (finding) January 07, 2024 11:37am Observation Status Observation Response Date of Response Legal Sex Female (finding) Sex Assigned At Female [birth year] Family History Relationship Condition Age at Onset Recorded Date/T renée father Unknown History of stroke Unknown Disorder of thyroid Unknown Dementia Unknown mother Heart disease Unknown Malignant neoplasm of breast Unknown Problems Active Problems Medical Problem Onset Date Status Major depressive disorder Unknown Active Insomnia Unknown Active Screening for colon cancer Unknown Activ e Screening mammogram for breast cancer Unknown Active Sinusitis, acute maxillary Unknown Activ e Chronic constipation Unknown Active Acute effusion of both middle ears Unknown Active Diarrhea Unknown Active Headache Unknown Active Syncope and collapse Unknown Active Epigastric abdominal pain Unknown Active Irritable bowel syndrome with diarrhea Unknown Active Intracranial shunt Unknown Active Ear canal mass Unknown Active GERD (gastroesophageal reflux disease) Unknown Active Class 2 obesity with body mass index (BMI) of 35 .0 to 35.9 in adult Unknown Active Inactive/Resolved Problems Medical Problem Onset Date Status Class 2 obesity with body ma ss index (BMI) of 36.0 to 36.9 in adult Unknown Resolved Medications Medication Status Dose Units Route Directions Qty Days St art Date Stop Date End Date Instructions Adherence Pantoprazol e 40 mg tablet,karly yed release (DR/EC) Discont inued 0 .ROUTE .[facility] October 26, 2023 10:35a m November 30, 2023 11:24 am TAKE 1 TABLET BY MOUTH DAILY Trazodone 100 mg tablet Discont inued 0 .ROUTE .[facility] October 26, 2023 10:35a m [facility] 2023 8:06a m TAKE 1 TABLET BY MOUTH ONCE DAILY AT BEDTIME Escitalopra m Oxalate 20 mg tablet Discont inued 0 .ROUTE .[facility] October 26, 2023 10:35a m [facility] 2023 8:06a m TAKE 1 TABLET BY MOUTH EVERY DAY Cholestyram ine (With Sugar) 4 gram powder Discont inued 4 GM PO Twice daily 378 November 06, 2023 12:00a m December 13, 2023 1:11p m administer w/meal; avoid other meds within 1hr before or 4-6hr after dose Pantoprazol e 40 mg tablet,karly yed release (DR/EC) Discont inued 0 .ROUTE .[facility] November 30, 2023 11:24a m December 13, 2023 1:33p m TAKE 1 TABLET BY MOUTH DAILY Trazodone 100 mg tablet Discont inued 0 .ROUTE .[facility] 2023 8:06am [facility] 9:29a m TAKE 1 TABLET BY MOUTH ONCE DAILY AT BEDTIME Escitalopra m Oxalate 20 mg tablet Discont inued 0 .ROUTE .COMPLEX 90 Septem codey 2023 8:06am Dece codey 2023 9:29a m TAKE 1 TABLET BY MOUTH EVERY DAY Trazodone 100 mg tablet Discont inued 0 .ROUTE .[facility] 90 [facility] er 2023 9:29am Febru flores 2024 4:52p m TAKE 1 TABLET BY MOUTH ONCE DAILY AT BEDTIME Escitalopra m Oxalate 20 mg tablet Discont inued 0 .ROUTE .COMPLEX 90 [facility] er 2023 9:29am Jan ry 2024 10:40 am TAKE 1 TABLET BY MOUTH EVERY DAY Rifaximin (Xifaxan) 550 mg tablet Discont inued 550 MG PO Three times daily 42 2024 1:00am September 22, 2024 4:17p m Trazodone 100 mg tablet Discont inued 0 .ROUTE .[facility] 2024 4:51pm November 20, 2024 11:45 am TAKE 1 TABLET BY MOUTH ONCE DAILY AT BEDTIME Escitalopra m Oxalate 20 mg tablet Discont inued 0 .ROUTE .[facility] 2024 4:51pm November 20, 2024 11:45 am TAKE 1 TABLET BY MOUTH EVERY DAY Rifaximin (Xifaxan) 550 mg tablet Discont inued 550 MG PO Three times daily 42 14 September 22, 2024 4:17pm November 21, 2024 11:10 am Trazodone 100 mg tablet Discont inued 0 .ROUTE .[facility]X November 20, 2024 11:45a m Augus t 2024 1:49p m TAKE 1 TABLET BY MOUTH ONCE DAILY AT BEDTIME Escitalopra m Oxalate 20 mg tablet Active 0 .ROUTE .COMPLEX November 20, 2024 11:45a m TAKE 1 TABLET BY MOUTH EVERY DAY Complies with drug therapy Ubrogepant (Ubrelvy) 100 mg tablet Active 100 MG PO Once as needed for migraine headache December 22, 2024 12:00a m Complies with drug therapy Trazodone 150 mg tablet Active 150 MG PO Daily at bedtime February 09, 2025 2:46pm Complies with drug therapy Albuterol Sulfate 90 mcg/actuati on HFA aerosol inhaler Active 2 PUFF INHALA TION EVERY 4-6 HOURS as needed for bronchospas m 6.7 February 09, 2025 2:46pm Complies with drug therapy Cranberry Fruit 400 mg capsule Active 400 MG PO Daily October 08, 2023 12:00a m administer with a meal Complies with drug therapy Sumatriptan Succinate 50 mg tablet Discont inued MG PO September 05, 2023 12:00a m October 03, 2023 10:42 am FreeTextSig: TAKE 1 TABLET BY MOUTH EVERY DAY NEEDED Oral; Note: Source Status: Not-Takingund efinedPRN; Refills: 0; Qty: 9 Each; Provider: JERAMIE MONTIEL Pantoprazol e 40 mg tablet,karly yed release (/EC) Discont inued 40 MG PO Daily September 07, 2023 12:00a m October 26, 2023 10:35 am Escitalopra m Oxalate 20 mg tablet Discont inued 1 TAB PO Daily 2023 1:00am 2023 4:16p m FreeTextSi tablet Orally Once a day; Note: Source Status: Refill; Provider: Jeramie Franco Trazodone 100 mg tablet Discont inued 100 MG PO Daily at bedtime 2023 1:00am 2023 4:16p m Trazodone 100 mg tablet Discont inued 100 MG PO Daily at bedtime 2023 4:16pm October 26, 2023 10:35 am Escitalopra m Oxalate 20 mg tablet Discont inued 20 MG PO Daily 2023 4:16pm October 26, 2023 10:35 am FreeTextSi tablet Orally Once a day; Note: Source Status: Refill; Provider: Jeramie Franco Ondansetron Hcl 4 mg tablet Discont inued 4 MG PO Every 8 hours as needed for nausea and vomiting 07 26October 03, 2023 12:00a m December 13, 2023 1:12p m Famotidine 40 mg tablet Discont inued 40 MG PO Daily at bedtime October 03, 2023 12:00a m Decem codey 2023 11:32 am Pantoprazol e 40 mg tablet,karly yed release (DR/EC) Active 40 MG PO Twice daily 180 90 December 13, 2023 12:00a m Complies with drug therapy Colestipol 1 gram tablet Discont inued 1 GM PO Twice daily 60 30 Octobe r 2023 12:00a m Janua ry 2024 10:27 am Escitalopra m Oxalate 20 mg tablet Discont inued 20 MG PO .COMPLEX Januar y 2024 10:39a m Febru flores 2024 4:52p m 20mg orally Ondansetron 4 mg tablet,disi ntegrating Discont inued 4 MG PO Every 8 hours as needed for nausea and vomiting y 2024 1:00am December 19, 2024 1:32p m Albuterol Sulfate 90 mcg/actuati on HFA aerosol inhaler Discont inued 2 PUFF INHALA TION EVERY 4-6 HOURS as needed for bronchospas m 6.7 October 14, 2024 12:00a m Augus t 2024 2:46p m Doxycycline Hyclate 100 mg tablet Discont inued 100 MG PO Twice daily October 14, 2024 12:00a m November 21, 2024 10:57 am Benzonatate 200 mg capsule Discont inued 200 MG PO 2-3 TIMES PER DAY as needed for cough October 14, 2024 12:00a m November 21, 2024 10:57 am Tirzepatide (Weight Loss) (Zepbound) 2.5 mg/0.5 mL pen injector Discont inued 2.5 MG SUBCUT every week November 21, 2024 12:00a m December 23, 2024 1:35p m for 4 weeks Multivitami n (Daily Multi-Vitam in) tablet Active 1 TAB PO Daily December 19, 2024 12:00a m Complies with drug therapy Ondansetron 4 mg tablet,disi ntegrating Active 4 MG PO Every 8 hours as needed for nausea and vomiting December 19, 2024 1:32pm Complies with drug therapy Semaglutide (Weight Loss) (Wegovy) 0.25 mg/0.5 mL pen injector Discont inued 0.25 MG SUBCUT every week 2 December 23, 2024 12:00a m Augus 2024 1:53p m administer weeks 1 through 4 of therapy Trazodone 150 mg tablet Discont inued 150 MG PO Daily at bedtime 90 January 27, 2025 1:47pm Augus t 2024 2:46p m Buspirone 5 mg tablet Active 5 MG PO Twice daily as needed for anxiety 60 January 27, 2025 12:00a m Complies with drug therapy Semaglutide (Weight Loss) (Weblancavy) 0.25 mg/0.5 mL pen injector Active 0.25 MG SUBCUT every week 2 January 27, 2025 1:53pm administer weeks 1 through 4 of therapy Complies with drug therapy Vital Signs Vital Reading Result Reference Range Collection Date/Time Height 61 [in_i] December 19, 2024 1:03pm Weight 85.72 kg December 19, 2024 1:03pm Heart Rate 101 /min 60-100 December 19, 2024 1:03pm BP Systolic 91 mm[Hg] 100-140 December 19, 2024 1:03pm BP Diastolic 61 mm[Hg] 60-100 December 19, 2024 1:03pm BMI (Body Mass Index) 35.6 kg/m2 November 242024 1:03pm Height 61 [in_i] January 13, 2025 1:18pm Weight 84.82 kg January 13, 2025 1:18pm Heart Rate 82 /min 60-100 January 13, 2025 1:18pm BP Systolic 92 mm[Hg] 100-140 January 13, 2025 1:18pm BP Diastolic 64 mm[Hg] 60-100 January 13, 2025 1:18pm BMI (Body Mass Index) 35.3 kg/m2 December 242024 1:18pm Height 61 [in_i] January 27 1:31pm Weight 86.18 kg January 27 1:31pm Heart Rate 85 /min 60-100 January 27 1:31pm BP Systolic 98 mm[Hg] 100-140 January 27 1:31pm BP Diastolic 65 mm[Hg] 60-100 January 27 1:31pm BMI (Body Mass Index) 35.9 kg/m2 January 27, 2025 1:31pm Height 62 [in_i] February 18 10:43am Weight 85.72 kg February 18 10:43am Body Temperature 96.6 [degF] 97.6-99.0 January 10:43am Heart Rate 66 /min 60-100 February 18 10:43am Respiratory rate 18 /min 12-24 January 10:43am Oxygen saturation by Pulse oximetry 96 % 95-100 February 18, 2025 10 :43am BP Systolic 124 mm[Hg] 100-140 February 18 10:43am BP Diastolic 76 mm[Hg] 60-100 February 18 10:43am BMI (Body Mass Index) 34.5 kg/m2 February 18, 2025 10:43am Advance Directives Advance Directive Response Recorded Date/ Time Advance Directives No October 15 4:19pm Insurance Providers Guarantor Katherin Marito Lucero Address [address] [place] [id number] Contact Info. Home Phone: Payer Policy Id Subscriber's Name Subscriber Id Effectiv e Date Expiration Date [place] [id number] Zayhenny Barker [id number] Encounters Encounter Location(s) Arrival/Admit Date Discharge/Depart Date Provider(s) Departed Physician/Prov ider Office Visit -[facility] December 19, 2024 1:01pm December 19, 2024 1:43pm Birgit Baldwin MD Departed Physician/Prov ider Office Visit -[facility] January 13, 2025 1:08pm January 13, 2025 2:03pm Birgit Baldwin MD Departed Physician/Prov ider Office Visit -[facility] January 27, 2025 1:30pm January 27, 2025 1:58pm Birgit Baldwin MD Departed Physician/Prov ider Office Visit -[facility] February 18, 2025 10:38am February 18, 2025 10:52am Jaylin Carrero APRN Recent Diagnosis Onset Date Admit Date Class 2 obesity with body ma ss index (BMI) of 35.0 to 35.9 in adult Unknown December 19, 2024 1:01pm Headache Unknown December 19, 2024 1:01pm Intracranial shunt Unknown December 19 1:01pm Acute effusion of both middle ears Unknown January 13, 2025 1:08pm Ear canal mass Unknown January 13, 2025 1:08pm Class 2 obesity with body ma ss index (BMI) of 35.0 to 35.9 in adult Unknown January 27, 2025 1:30pm Insomnia Unknown January 27, 2025 1:30pm Major depressive disorder Unknown January 27, 2025 1:30pm Assessments Diagnosis Onset Date Resolution Status Admit Date [...] depressive disorder acute January 27, 2025 1:30pm Plan of Treatment Author Birgit [facility] Authored January 20, 2025 4:39 pm Referral to ENT. Recommend O TC Nasal corticosteroids in the meantime. Author Birgit [facility] Authored December 23, 2024 1:40p m Appears intact on CT. No obv ious followup w NS indicated. Samples Ubrelvy given. Pt agrees to referral to Dr. Camacho. Michele sent in on 12/23. Author Birgit [facility] Authored January 28, 2025 9:3 5am continue lexapro, add buspar for anxiety symptoms. Increase dose of trazodone sent. Michele resent and will watch for a PA about it. Future Tests Future scheduled test information is unavailable Pending Tests Pending diagnostic test information is unavailable Future Visits Future appointment information is unavailable Referrals to Other Providers Reason for Referral Referral Start Date Provider Provider Contact Information Provider Address H93.5X8 - Other specified disorders of ear, unspecified ear January 13, 2025 TOMY TORRES MD SEE ORDER- MULTIPLE OFFICES [place] R51.9 - Headache, unspecified,Z98.2 - Presence of cerebrospinal fluid drainage device December 19, 2024 Patience Cuba DO Email: Work Phone: [address] [place] [phone] Future Procedures Future procedure information is unavailable Future Medications Future medication information is unavailable Patient Instructions Patient instructions are unavailable
--- OUTSIDE RECORDS SUMMARY | 2025-03-12 07:18 | XMS_ITS | Encounter Summary ---
Author Organization [facility] Address [address] [place] [address] Care Team Providers Care Hydraulic Controls Technician Name Role Phone Birgit Baldwin MD Primary Care Provider Encounter Details Date Type Department Care Team (Late st Contact Info) Description 03/09/2025 Orders Only [facility] [address] [place] [address] Sima Mccracken MA Other chest pain (Primary Dx); Abnormal EKG Social History Tobacco Use Types Packs/Day Years Used Date Smoking Tobacco: Every Day Cigarettes Smokeless Tobacco: Never Alcohol Use Standard Drinks/Week Comments Yes 0 (1 standard drink = 0.6 oz pur e alcohol) occasional Comments Unknown Sex and Gender Information Value Date Recorded Sex Assigned at Not on file Legal Sex Female 11:17 AM EST Gender Identity Not on file Sexual Orientation Not on file documented as of this encounter Plan of Treatment Upcoming Encounters Date Type Department Care Team (Late Contact Info) Description 04/03/2025 10:20 AM EDT Office Visit [facility] [address] [place] [address] Otoniel Hernandez MD [address] [place] [place] [address] Scheduled Orders Name Type Priority Associated Diagnoses Orde r Schedule Treadmill Stress Myocardial Perfusion Imaging Cardiac Services Routine Other chest pain Abnormal EKG Expected: 03/09/2025 (Approximate), Expires: 03/09/2027 documented as of this encounter Visit Diagnoses Diagnosis Other chest pain- Primary Abnormal EKG Nonspecific abnormal electrocardiogram (ECG) (EKG) documented in this encounter Care Teams Hydraulic Controls Technician Relationship Specialty Start Date End Date Birgit Baldwin MD [address] [facility]A PCP - General 07/25/24 documented as of this encounter
--- OUTSIDE RECORDS SUMMARY | 2025-03-12 07:18 | XMS_ITS | Clinical Summary ---
Author Organization [facility] Address [address] [place] [address] Care Team Providers Care Automotive Assembler Name Role Phone Birgit Baldwin MD Primary Care Provider [phone] Allergies Active Allergy Reactions Criticality Noted Date Comments Sulfanilamide Hives 12/19/2022 Medications colestipol (Colestid) 1 gram tablet Take 1 tablet by mouth Twice daily at 6am and 6pm. 03/28/2024 Active escitalopram (Lexapro) 20 mg tablet Take 1 tablet by mouth in the morning. 06/04/2024 Active pantoprazole (ProtoNix) 40 mg EC tablet Take 1 tablet by mouth Twice daily at 6am and 6pm. 06/15/2024 Active traZODone (Desyrel) 100 mg tablet Take 100 mg by mouth at bedtime. 06/04/2024 Active cranberry extract 425 mg capsule as directed Orally Active Active Problems Problem Noted Date Diagnosed Date Syncope and collapse 07/27/2024 Intracranial shunt 07/27/2024 Class 1 obesity due to exces s calories without serious comorbidity with body mass index (BMI) of 34.0 to 34.9 in adult 07/27/2024 Lateral epicondylitis 12/19/2022 Encounters Date Type Department Care Team Description 03/09/2025 Orders Only [facility] [address] [place] [address] Sima Mccracken MA Other chest pain (Primary Dx); Abnormal EKG from Last 3 Months Family History Medical History Relation Name Comments Stroke Father Coronary artery disease Mother Relation Name Status Comments Father Mother Social History Tobacco Use Types Packs/Day Years Used Date Smoking Tobacco: Every Day Cigarettes Smokeless Tobacco: Never Tobacco Cessation:Ready to Q uit: Not Asked; Counseling Given: Not Answered Alcohol Use Standard Drinks/Week Comments Yes 0 (1 standard drink = 0.6 oz pur e alcohol) occasional Comments Unknown Sex and Gender Information Value Date Recorded Sex Assigned at Not on file Legal Sex Female 11:17 AM EST Gender Identity Not on file Sexual Orientation Not on file Last Filed Vital Signs Vital Sign Reading Time Taken Comments Blood Pressure 120/82 07/25/2024 2:46 PM EST Pulse 79 07/25/2024 2:46 PM EST Temperature - - Respiratory Rate - - Oxygen Saturation 97% 07/25/2024 2:46 PM EST Inhaled Oxygen Concentration - - Weight 82.1 kg (181 lb) 07/25/2024 2:46 PM EST Height 154.9 cm (5' 1 ) 07/25/2024 2:46 PM EST Body Mass Index 34.2 07/25/2024 2:46 PM EST Plan of Treatment Upcoming Encounters Date Type Department Care Team (Late st Contact Info) Description 04/03/2025 10:20 AM EDT Office Visit [facility] [address] [place] [address] Otoniel Hernandez MD [address] [place] [address] Health Maintenance Due Date Last Done Comments CT Colonography 1975 Colonoscopy 1975 Colorectal Cancer Screening 1975 FIT-DNA 1975 FIT 1975 FOBT 1975 Sigmoidoscopy 1975 Depression Screening 1987 Hepatitis B Vaccines (1 of 3 - 19+ 3-dose series) 1994 Pneumococcal Vaccine: Pediatrics (0 to 5 Years) and At-Risk Patients (6 to 64 Years) (1 of 2 - PCV) 1994 Pap Smear 1996 Adult Tetanus 1997 Cervical Cancer Screening 2005 HPV/Cotest 2005 Mammogram 2015 COVID-19 Vaccine ( 2024-2 6 season) 2025 05/27/2021, 10/13/2020, 09/15/2020 Influenza Vaccine (#1) 2025 Zoster Vaccines (1 of 2) 2025 HIB Vaccines Aged Out No longer eligi ble based on patient's age to complete this topic HPV Vaccines Aged Out No longer eligi ble based on patient's age to complete this topic IPV Vaccines Aged Out No longer eligi ble based on patient's age to complete this topic Meningococcal B Vaccine Aged Out No l onger eligible based on patient's age to complete this topic Meningococcal Vaccine Aged Out No shraddha rolf eligible based on patient's age to complete this topic Rotavirus Vaccines Aged Out No longer eligible based on patient's age to complete this topic Insurance [facility] Care Teams Automotive Assembler Relationship Specialty Start Date End Date Birgit Baldwin MD [address] [facility]A PCP - General 07/25/24
--- OUTSIDE RECORDS SUMMARY | 2025-03-12 07:18 | XMS_ITS | CCD ---
Author Organization [facility] CliniSyar Care Team Providers Care Learning Design Specialist Name Role Phone Seb Bobo Unavailable DINESH BOBO Primary Care Physician JERAMIE, DR DINESH Franco Admitting Unavailable BOBO, DR DINESH Franco Attending Unavailable BOBO, DR DINESH Franco Primary Care Unavailable BOBO, DR DINESH Franco Consulting Unavailable ROBERT, ЕЛЕНА Consulting Unavailable BOBO, DR DINESH Franco Primary Care Unavailable NAWAF, GERMAINE Admitting Unavailable GERMAINE NÚÑEZ Attending Unavailable NAWAF, GERMAINE Consulting Unavailable BOBO, DR DINESH Franco Admitting Unavailable BOBO, DR DINESH Franco Attending Unavailable BOBO, DR DINESH Franco Primary Care Unavailable BOBO, DR DINESH Franco Admitting Unavailable BOBO, DR DINESH Farnco Attending Unavailable BOBO, DR DINESH Franco Primary [...] Care Provider DO Imelda Jiang Attending Provider [phone] MD Dinesh Bobo Primary Care Provider [phone] DO Imelda Jiang Attending Provider Dinesh Bobo MD Primary Care Provider VAN SALCEDO Attending Unavailable Dinesh Bobo MD Primary Care Provider Ly DO, Imelda L Attending Provider [phone] Ly, Imelda L Attending Unavailable Ly, Imelda L Admitting Unavailable Dinesh Bobo E Primary Care Unavailable Ly, Imelda L Admitting Unavailable Ly, Imelda L Attending Unavailable Dinesh Bobo E Primary Care Unavailable Ly, Imelda L Admitting Unavailable Ly, Imelda L Attending Unavailable Bobo, Dinesh E Primary Care Unavailable Ly, Imelda L Admitting Unavailable Ly, Imelda L Attending Unavailable Jeramie, Dinesh Franco Primary Care Unavailable Dinesh Bobo MD Primary Care Provider Ly DO, Imelda Martinez Attending Provider Dinesh Bobo MD Attending Provider Tayla Vargas CMA Attending Provider UnavailDinesh [place] MD Primary Care Provider Ly DOImelda Attending Provider Dinesh Bobo MD Attending Provider Dinesh Bobo MD Primary Care Provider Jaylin Carrero APRN Attending Provider Dinesh Bobo MD Primary Care Provider Dinesh Bobo MD Attending Provider Germaine Núñez MD Attending Provider [phone] Imelda Robles CMA Attending Provider Unavaila ble Toan Camacho DO Attending Provider Allergies Allergy Classification Reported Allergen(s) Allergy Type Date of Onset Reaction(s) Facility (20 sources) Sulfanilamide; Translations: [SULFANILAMIDE] Drug Allergy 12-20-19 23 [facility] (4 sources) Sulfonamides (Antibiotic); Translations: [sulfa drugs] Drug allergy Respiratory failure [facility] (1 source) Sulfonamides (Antibiotic) Drug allergy (disorder) 12-03-19 13 [facility] Repository (20 sources) cefdinir Drug Allergy 09-07-19 24 Unknown, [facility] (2 sources) Amoxicillin Drug Allergy 01-12-20 07 AMOXICILLIN [facility] [place] Other (2 sources) Pseudoephedrine Drug Allergy Unknown [facility] [place] Other (17 sources) sulfADIAZINE Drug Allergy 09-07-19 Comment:Sulfa [facility] (2 sources) Substance with sulfonamide structure and antibacterial mechanism of action (substance) Drug allergy 01-12-20 SULFA [facility] [place] Other (2 sources) Allergies Reconciled Propensity to adverse reactions Unknown [facility] [place] Other (2 sources) patient allergy list reviewed by nurse or physicia Propensity to adverse reactions 01-16-20 Comment:Done [facility] [place] Other (2 sources) 12 Hour Decongestant Allergy to substance 09-05-19 Hives [facility] (1 source) cefdinir Drug Allergy 10-15-19 [facility] Repository (1 source) sulfADIAZINE Drug Allergy 10-15-19 [facility] Repository Medications Current Medications Medication Drug Class(es) Dates Sig (Normalized) Sig (Original) [id number] 200 actuat albuterol 0.09 mg/actuat metered dose inhaler (8 sources) beta2-Adrenergic Agonist Start: 10-14-2024 End: 03-05-2025 take 1 puff(s) by inhalation every four to six hours as needed Albuterol Sulfate 90 mcg/actuation HFA aerosol inhaler Active 2 PUFF INHALATION EVERY 4-6 HOURS as needed for bronchospasm 6.7 March 05, 2025 8:53am Complies with drug therapy Albuterol Sulfate 90 [...] 1 tablet Orally every 12 hrs Active aspirin 81 mg oral tablet (1 source) Platelet Aggregation Inhibitor, Nonsteroidal Anti-inflammatory Drug Start: 03-11-2025 take 1 tablet by mouth once daily Aspirin 81 mg tablet Active 81 MG PO Daily March 11, 2025 12:00am Complies with drug therapy azithromycin 250 mg oral tablet (3 sources) Macrolide Antimicrobial Start: 08-16-2022 Azithromycin 250 MG as directed Orally 2 tabs po today, then 1 tab daily x 4 more days for 5 Jul, Active busPIRone hydrochloride 5 mg oral tablet (4 sources) Start: 01-27-2025 End: 02-24-2025 take 1 tablet by mouth twice daily as needed for anxiety Buspirone 5 mg tablet Active 5 MG PO Twice daily as needed for anxiety 60 February 24, 2025 1:47pm Complies with drug therapy Cranberry Fruit (16 sources) Non-Standardized Food Allergenic Extract, Non-Standardized Plant [...] sources) Serotonin Reuptake Inhibitor Start: 08-19-2024 End: 03-05-2025 take 1 tablet by mouth once daily Escitalopram Oxalate 20 mg tablet Active 0 .ROUTE .COMPLEX March 05, 2025 8:53am TAKE 1 TABLET BY MOUTH EVERY DAY [...] Status: Ordered take 1 capsule by mo ut every twenty-four hours NexIUM 24HR 20 MG [...] milk, # 50 tab(s), Refills(s) 0, Pharmacy: [facility] [id number], 163, cm, 08/09/22 5:10:00 EST, [...] Status: Ordered Multivitamin (Daily Multi-Vi tamin) tablet (5 sources) Start: 12-19-2024 take 1 tablet by meseret th once daily Start: 12-19-2024 take 1 tablet by meseret th once daily Multivitamin (Daily Multi-Vitamin) tablet Active 1 TAB PO Daily December 19, 2024 12:00am Complies with drug therapy nitroglycerin 0.3 mg sublingual tablet (1 source) Nitrate Vasodilator Start: 03-11-2025 Nitroglycerin 0.3 mg tablet, sublingual Active 0.3 MG SUBLINGUAL Q5M as needed March 11, 2025 12:00am do not exceed 3 doses per episode Complies with drug therapy ondansetron 4 mg disintegrating oral tablet (20 sources) Serotonin-3 Receptor Antagonist Start: 07-04-2024 End: 12-19-2024 take 1 tablet by mouth every eight hours as needed for nausea and vomiting Ondansetron 4 mg tablet,disintegrat ing Active 4 MG PO Every 8 hours [...] Twice daily 180 December 13, 2023 12:00am Complies with drug [...] 07, 2023 12:00am October 26, 2023 10:35am polymyxin b [id number] unt/ml / trimethoprim 1 mg/ml ophthalmic solution (1 source) Dihydrofolate Reductase Inhibitor Antibacterial, Polymyxin-class Antibacterial Start: 02-18-2025 Polymyxin B Sulf-Trimethoprim 10,000 unit- 1 mg/mL drops Active 1 DROPS EYE-BOTH Every three hours 03 31February 18, 2025 12:00am while awake; do not exceed 6 doses in 24 hours Complies with drug therapy Semaglutide (Weight Loss) (7 sources) Start: 01-27-2025 Semaglutide (W eight Loss) (Wegovy) 0.25 mg/0.5 mL pen injector Active 0.25 MG SUBCUT every week January 27, 2025 1:53pm administer weeks 1 through 4 of therapy Complies with drug therapy Start: 12-23-2024 End: 01-27-2025 Semaglutide (Weight Loss) (W egovy) 0.25 mg/0.5 mL pen injector Discontinued 0.25 MG SUBCUT every week December 23, 2024 12:00am January 27, 2025 [...] 100 mg tablet Discontinued 0 .ROUTE .COMPLEX 90 November 20, 2024 11:45am January 27, 2025 [...] days Active ubrogepant 100 mg oral tablet (4 sources) Start: 12-22-2024 take 1 tablet by [...] Status: Ordered benzonatate 200 mg oral capsule (7 sources) Non-narcotic Antitussive Start: 10-14-2024 End: 11-21-2024 Benzonatate 200 mg capsule Discontinued 200 MG PO 2-3 TIMES PER DAY as needed for cough October 14, 2024 12:00am November 21, 2024 10:57am cholestyramine resin 4000 mg powder for oral suspension (11 sources) Bile Acid Sequestrant Start: 11-06-2023 End: [...] dose colestipol hydrochloride 1000 mg oral tablet (10 sources) Bile Acid Sequestrant Start: 03-28-2024 End: 07-04-2024 Colestipol 1 gram tablet Discontinued 1 GM PO Twice daily 60 March 28, 2024 12:00am July 04, 2024 10:27am doxycycline hyclate 100 mg oral tablet (7 sources) Tetracycline-class Drug Start: 10-14-2024 End: 11-21-2024 take 1 tablet by mouth twice daily Doxycycline Hyclate 100 mg tablet Discontinued 100 MG PO Twice daily October 14, 2024 12:00am November 21, 2024 10:57am famotidine 40 mg oral tablet (14 sources) Histamine-2 Receptor Antagonist Start: 10-03-2023 End: 05-30-2024 take 1 tablet by mouth once daily at bedtime Famotidine 40 mg tablet Discontinued 40 MG PO Daily at bedtime October 03, 2023 12:00am May 30, 2024 11:32am rifAXIMin 550 mg oral tablet (18 sources) Rifamycin Antibacterial Start: 08-11-2024 End: 11-21-2024 [...] for 9 Days Not-Taking/PRN Tirzepatide (Weight Loss) (6 sources) Start: 11-21-2024 End: 12-23-2024 Tirzepatide (Weight Loss) (Z epbound) 2.5 mg/0.5 mL pen injector Discontinued 2.5 MG SUBCUT every week November 21, 2024 12:00am December 23, 2024 [...] Active Problems Problem Classification Problem Date Documented Date Episodic/Chronic Abdominal pain (20 sources) Abdominal pain; Translations: [Abdominal pain, other specified site] Onset: 05-05-20 13 09-07-2023 Episodic Endometriosis (3 sources) Endometriosis (clinical) 08-08-2022 Chronic Esophageal disorders (20 sources) Gastroesophageal reflux disease; Translations: [Gastro-esophageal reflux disease without esophagitis] 08-08-2022 Chronic Genitourinary symptoms and ill-defined conditions (2 sources) Dysuria; Translations: [Dysuria] Episodic Headache; including migraine (14 sources) Migraine; Translations: [Migraine, unspecified, not intractable, without status migrainosus] Onset: 11-16-19 Resolved : 11-16-19 Chronic Headache; including migraine (12 sources) Headache; Translations: [Headache] Onset: 01-12-20 18 12-09-2024 Episodic Headache; including migraine (5 sources) Headache; including migraine Inflammation; infection of eye (except that caused by tuberculosis or sexually transmitteddisease) (2 sources) Bilateral conjunctivitis; Translations: [Other mucopurulent conjunctivitis, bilateral] 02-18-2025 Episodic Mood disorders (8 sources) Major depression, single episode; Translations: [Major [...] sources) Otalgia, bilateral; Translations: [OTALGIA BILATERAL] Onset: 08-14-19 Episodic Other ear and sense organ disorders (12 sources) Lump in ear canal; Translations: [Other specified disorders of ear, unspecified ear] Episodic Other gastrointestinal disorders (10 sources) Irritable bowel syndrome with diarrhea; Translations: [Irritable bowel syndrome with diarrhea] 07-04-2024 Chronic Other gastrointestinal disorders (5 sources) Irritable bowel syndrome with diarrhea; Translations: [Irritable bowel syndrome] Onset: 11-08-1907-04-2024 Chronic Other gastrointestinal disorders (14 sources) Chronic constipation; Translations: [Other constipation] 10-03-2023 Episodic Other gastrointestinal disorders (3 sources) Other constipation; Translations: [Constipation, unspecified] 10-03-2023 Episodic Other gastrointestinal disorders (12 sources) Diarrhea; Translations: [Diarrhea, unspecified] 12-13-2023 Episodic Other nervous system disorders (16 sources) Benign intracranial hypertension; Translations: [Benign intracranial hypertension] Onset: 08-27-19 14 08-08-2022 Chronic Other nervous system disorders (6 sources) Benign intracranial hypertension; Translations: [BENIGN INTRACRANIAL HYPERTENSION] Onset: 11-01-19 Resolved : 11-16-19 Chronic Other nervous system disorders (1 source) Presence of cerebrospinal fluid drainage device Onset: 11-16-19 Resolved : 11-16-19 Chronic Other nervous system disorders (10 sources) Device in situ; 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] 12-09-2024 Chronic Other nervous system disorders (2 sources) Ventriculoperitoneal shunt in situ; 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] 03-11-2025 Chronic Other nervous system disorders (1 source) [...] Translations: [Body mass index 30.0-30.9, adult] Onset: 12-25-19 Chronic Other nutritional; endocrine; and metabolic disorders (4 sources) Obese class I; Translations: [Body mass index (BMI) 34.0-34.9, adult] Chronic Other nutritional; endocrine; and metabolic disorders (20 sources) Obesity; Translations: [Class 2 obesity with body mass index (BMI) of 36.0 to 36.9 in adult] 11-21-2024 Chronic Other screening for suspected conditions (not mental disorders or infectious disease) (20 sources) Patient encounter status; Translations: [Encounter for screening mammogram for malignant neoplasm of breast] 09-07-2023 Episodic Other upper respiratory infections (10 sources) Acute maxillary sinusitis; Translations: [Acute recurrent maxillary sinusitis] Onset: 09-20-19 16 10-17-2024 Episodic Otitis media and related conditions (8 sources) Otitis media, unspecified, right ear; Translations: [Other acute nonsuppurative otitis media, bilateral] Onset: 08-16-19 Episodic Residual codes; unclassified (5 sources) H/O: risk factor; Translations: [Transfusion history] Episodic Residual codes; unclassified (1 source) Past history of procedure; Translations: [Other specified postprocedural states] Episodic Residual codes; unclassified (2 sources) Family history of breast cancer; Translations: [Family history of malignant neoplasm of breast] Episodic Residual codes; unclassified (6 sources) Insomnia; Translations: [Insomnia, unspecified] Onset: 11-20-19 15 01-28-2025 Episodic Residual codes; unclassified (2 sources) Family history of diabetes mellitus; Translations: [Family history of diabetes mellitus] Episodic Residual codes; unclassified (2 sources) Insomnia, unspecified Episodic Residual codes; unclassified (1 source) Pain, unspecified; Translations: [Pain, unspecified] Onset: 05-24-20 Episodic Substance-related disorders (3 sources) Smoker 08-08-2022 Chronic Comment on above: Added secondary to d ocumentation in Social History. Syncope (11 sources) Syncope and collapse; Translations: [Syncope and collapse] Onset: 07-25-19 25 Episodic Unclassified (3 sources) History of clinical finding in subject 08-08-2022 Unclassified (4 sources) H93.8X9 - Other specified disorders of [...] Test Name Value Interpretation Reference Range Facility Cholesterol in LDL Calc [Mas s/Vol]Ordered By: Stanley Levi on 03-09-2025 Cholesterol in LDL [Mass/Vol] 94.0 mg/dL [facility] Comment on above: <100 mg/dl [id number] 0-129 mg/dl NEAR OR ABOVE [id number] mg/dl BORDERLINE [id number] mg/dl HIGH>190 mg/dl VERY HIGH Cholesterol in VLDL Calc [Ma ss/Vol]Ordered By: Stanley Levi on 03-09-2025 Cholesterol in VLDL [Mass/Vol] 42.0 mg/dL [facility] Erythrocyte distribution wid th Auto (RBC) [Ratio]Ordered By: Stanley Levi on 03-09-2025 Erythrocyte distribution width (RBC) [Ratio] 13.6 % 11.0-15.0 [facility] Globulin Calc (S) [Mass/Vol] Ordered By: Stanley Levi on 03-09-2025 Globulin (S) [Mass/Vol] 3.2 g/dL [facility] Glomerular filtration rate ( GFR) estimation in non- AmericanOrdered By: Stanley Levi on 03-09-2025 GFR/1.73 sq M.predicted among non-blacks MDRD (S/P/Bld) [Vol rate/Area] mL/min/{1.73_m2} >=60 mL/min/1.73 m 2 [facility] Hematocrit Auto (Bld) [Volum e fraction]Ordered By: Stanley Levi on 03-09-2025 Hematocrit (Bld) [Volume fraction] 33.7 % Low 36.0-48.0 [facility] Hemoglobin [Mass/volume] in BloodOrdered By: Stanley Levi on 03-09-2025 Hemoglobin (Bld) [Mass/Vol] 11.2 g/dL Low 12.0-16.0 [facility] Laboratory - Chemistry and C hemistry - challengeOrdered By: Stanley Levi on 03-09-2025 Albumin [Mass/Vol] 2.8 g/dL Low 3.4-5.0 [facility] ALP [Catalytic activity/Vol] 64 U/L 46-116 [facility] ALT [Catalytic activity/Vol] 14 U/L 14-59 [facility] AST [Catalytic activity/Vol] 12 U/L Low 15-37 [facility] Bilirubin [Mass/Vol] 0.2 mg/dL 0.2-1.0 [facility] Calcium [Mass/Vol] 8.3 mg/dL Low 8.5-10.1 [facility] Chloride [Moles/Vol] 108 mmol/L High 98-107 [facility] Cholesterol [Mass/Vol] 178 mg/dL <=200 [facility] Cholesterol in HDL [Mass/Vol] 42 mg/dL 40-60 [facility] Comment on above: > or =60 mg/dl - LOW CARDIOVASCULAR RISK<40 mg/dl - HIGH CARDIOVASCULAR RISK CO2 [Moles/Vol] 26.8 mmol/L 21.0-32.0 [facility] Creatinine [Mass/Vol] 0.89 mg/dL 0.55-1.02 [facility] GFR/1.73 sq M.predicted MDRD (S/P/Bld) [Vol rate/Area] mL/min/{1.73_m2} >=60 mL/min/1.73 m 2 [facility] Glucose [Mass/Vol] 95 mg/dL 74-106 [facility] Potassium [Moles/Vol] 3.8 mmol/L 3.5-5.1 [facility] Protein [Mass/Vol] 6.0 g/dL Low 6.4-8.2 [facility] Sodium [Moles/Vol] 144 mmol/L 136-145 [facility] Triglyceride [Mass/Vol] 210 mg/dL High <=150 [facility] Urea nitrogen [Mass/Vol] 16.0 mg/dL 7.0-18.0 [facility] Urea nitrogen/Creatinine [Mass ratio] 18.0 mg/mg [facility] Leukocytes [#/volume] correc momo for nucleated erythrocytes in Blood by Automated counOrdered By: Stanley Levi on 03-09-2025 WBC corrected for nucl RBC Auto (Bld) [#/Vol] 9.8 10 3/uL 4.0-11.0 [facility] MCH Auto (RBC) [Entitic mass ]Ordered By: Stanley Levi on 03-09-2025 MCH (RBC) [Entitic mass] 29.2 pg 26.7-34.0 [facility] MCHC Auto (RBC) [Mass/Vol]Or dered By: Stanley Levi on 03-09-2025 MCHC (RBC) [Mass/Vol] 33.2 g/dL 29.9-35.2 [facility] MCV Auto (RBC) [Entitic vol] Ordered By: Stanley Levi on 03-09-2025 MCV (RBC) [Entitic vol] 87.8 fL 81.0-99.0 [facility] No Panel InformationOrdered By: Stanley Levi on 03-09-2025 Bedside Influenza Type A Antigen Negative [facility] Comment on above: Negative for Flu A p rotein antigen. Infection due to Flu Acannot be ruled out. Flu A antigen in the sample may bebelow the detection limit of the test. Bedside Influenza Type B Antigen Negative [facility] Comment on above: Negative for Flu B p rotein antigen. Infection due to Flu Bcannot be ruled out. Flu B antigen in the sample may bebelow the detection limit of the test. C-Reactive Protein, Quantitative <0.50 mg/dL <=0.50 [facility] Troponin I High Sensitivity <4.0 pg/mL Low 4.0-51.3 [facility] Comment on above: CUT-OFF POINTS HAVE BEEN ESTABLISHED BASED ON THE FOURTHUNIVERSAL DEFINITION OF MYOCARDIAL INFARCTION. THE UPPERREFERENCE LIMIT (URL) OF TROPONIN, DEFINED THE 99THPERCENTILE OF cTnI DISTRIBUTION IN A REFERENCE POPULATION,HAS BEEN CONFIRMED THE DECISION THRESHOLD FOR MIDIAGNOSIS.99TH PERCENTILE = 51.4 PG/MLNOTE: HIGH-SENSITIVITY TROPONIN ASSAY IS NOT INTENDED TO BEUSED IN ISOLATION BUT SHOULD BE INTERPRETED IN CONJUNCTIONWITH OTHER DIAGNOSTIC AND CLINICAL INFORMATION. Platelet mean volume Auto (B ld) [Entitic vol]Ordered By: Stanley Levi on 03-09-2025 Platelet mean volume (Bld) [Entitic vol] 9.3 fL Low 9.5-13.5 [facility] Platelets Auto (Bld) [#/Vol] Ordered By: Stanely Levi on 03-09-2025 Platelets (Bld) [#/Vol] 281 10 3/uL 150-450 [facility] RBC Auto (Bld) [#/Vol]Ordere d By: Stanley Levi on 03-09-2025 RBC (Bld) [#/Vol] 3.84 10 6/uL Low 4.20-5.40 [facility] Serum or plasma albumin/glob ulin mass ratioOrdered By: Stanley Levi on 03-09-2025 Albumin/Globulin [Mass ratio] 0.9 {ratio} [facility] Serum or plasma anion gap de terminationOrdered By: Stanley Levi on 03-09-2025 Anion gap [Moles/Vol] 13.0 mmol/L [facility] Serum or plasma total choles terol/high density lipoprotein (HDL) cholesterol mass ratOrdered By: Stanley Levi on 03-09-2025 Cholesterol.total/[place] sterol in HDL [Mass ratio] 4.2 {ratio} [facility] Comment on above: 3.3 - 4.4 LOW RISK4. 4 - 7.1 AVERAGE RISK7.1 - 11.0 MODERATE RISK>11.0 HIGH RISK Basophils Auto (Bld) [#/Vol] Ordered By: Germaine Núñez on 03-08-2025 Basophils (Bld) [#/Vol] 0.1 10 3/uL 0.0-0.1 [facility] Basophils/100 WBC Auto (Bld) Ordered By: Germaine Núñez on 03-08-2025 Basophils/100 WBC (Bld) 0.7 % 0.2-2.0 [facility] Eosinophils/100 WBC Auto (Bl d)Ordered By: Germaine Núñez on 03-08-2025 Eosinophils/100 WBC (Bld) 2.2 % 0.9-7.0 [facility] Erythrocyte distribution wid th Auto (RBC) [Ratio]Ordered By: Germaine Núñez on 03-08-2025 Erythrocyte distribution width (RBC) [Ratio] 13.3 % 11.0-15.0 [facility] Fibrin D-dimer [Presence] in Platelet poor plasma by Latex agglutinationOrdered By: Germaine Núñez on 03-08-2025 Fibrin D-dimer LA Ql (PPP) 0.63 mg/L FEU Critically high <=0.59 [facility] Comment on above: RESULTS CALLED TO HANNAH BAUER RN @BY Jennifer Tolliver at [phone] in D-Dimer concentration observed withthromboembolic events can be variable due to localization,size, and age of the thrombus. Therefore, a thromboembolicevent cannot be diagnosed with certainty on the basis of thereference range. D-Dimers may also be elevated for a varietyof disorders including advanced age, , coronarydisease, cancer, liver disease, infection, inflammation,hematoma, DIC, trauma, post-surgery, diabetes, thrombolyticor anticoagulant therapy, stress, and generalizedhospitalization. Glomerular filtration rate ( GFR) estimation in non- AmericanOrdered By: Germaine Núñez on 03-08-2025 GFR/1.73 sq M.predicted among non-blacks MDRD (S/P/Bld) [Vol rate/Area] 50 mL/min/{1.73_m2} Low >=60 mL/min/1.73 m 2 [facility] Hematocrit Auto (Bld) [Volum e fraction]Ordered By: Germaine Núñez on 03-08-2025 Hematocrit (Bld) [Volume fraction] 38.3 % 36.0-48.0 [facility] Hemoglobin [Mass/volume] in BloodOrdered By: Germaine Núñez on 03-08-2025 Hemoglobin (Bld) [Mass/Vol] 12.8 g/dL 12.0-16.0 [facility] Laboratory - Chemistry and C hemistry - challengeOrdered By: Germaine Núñez on 03-08-2025 Calcium [Mass/Vol] 8.8 mg/dL 8.5-10.1 [facility] Chloride [Moles/Vol] 109 mmol/L High 98-107 [facility] CO2 [Moles/Vol] 21.0 mmol/L 21.0-32.0 [facility] Creatinine [Mass/Vol] 1.15 mg/dL High 0.55-1.02 [facility] GFR/1.73 sq M.predicted MDRD (S/P/Bld) [Vol rate/Area] mL/min/{1.73_m2} >=60 mL/min/1.73 m 2 [facility] Glucose [Mass/Vol] 129 mg/dL High 74-106 [facility] Natriuretic peptide B (Bld) [Mass/Vol] 63.0 pg/mL <=900.0 [facility] Potassium [Moles/Vol] 3.7 mmol/L 3.5-5.1 [facility] Sodium [Moles/Vol] 145 mmol/L 136-145 [facility] Urea nitrogen [Mass/Vol] 16.0 mg/dL 7.0-18.0 [facility] Urea nitrogen/Creatinine [Mass ratio] 13.9 mg/mg [facility] Laboratory - Hematology and Cell countsOrdered By: Germaine Núñez on 03-08-2025 Immature granulocytes/100 WBC (Bld) 0.5 % 0.0-0.5 [facility] Leukocytes [#/volume] correc momo for nucleated erythrocytes in Blood by Automated counOrdered By: Germaine Núñez on 03-08-2025 WBC corrected for nucl RBC Auto (Bld) [#/Vol] 13.0 10 3/uL High 4.0-11.0 [facility] Lymphocytes Auto (Bld) [#/Vo l]Ordered By: Germaine Núñez on 03-08-2025 Lymphocytes (Bld) [#/Vol] 2.8 10 3/uL 1.2-3.8 [facility] Lymphocytes/100 WBC Auto (Bl d)Ordered By: Germaine Núñez on 03-08-2025 Lymphocytes/100 WBC (Bld) 21.7 % 20.5-60.0 [facility] MCH Auto (RBC) [Entitic mass ]Ordered By: Germaine Núñez on 03-08-2025 MCH (RBC) [Entitic mass] 29.2 pg 26.7-34.0 [facility] MCHC Auto (RBC) [Mass/Vol]Or dered By: Germaine Núñez on 03-08-2025 MCHC (RBC) [Mass/Vol] 33.4 g/dL 29.9-35.2 [facility] MCV Auto (RBC) [Entitic vol] Ordered By: Germaine Núñez on 03-08-2025 MCV (RBC) [Entitic vol] 87.4 fL 81.0-99.0 [facility] Monocytes Auto (Bld) [#/Vol] Ordered By: Germaine Núñez on 03-08-2025 Monocytes (Bld) [#/Vol] 0.8 10 3/uL 0.3-0.8 [facility] Monocytes/100 WBC Auto (Bld) Ordered By: Germaine Núñez on 03-08-2025 Monocytes/100 WBC (Bld) 6.0 % 1.7-12.0 [facility] Neutrophils Auto (Bld) [#/Vo l]Ordered By: Germaine Núñez on 03-08-2025 Neutrophils (Bld) [#/Vol] 9.0 10 3/uL High 1.4-6.5 [facility] Neutrophils/100 WBC Auto (Bl d)Ordered By: Germaine Núñez on 03-08-2025 Neutrophils/100 WBC (Bld) 68.9 % 43.0-75.0 [facility] No Panel InformationOrdered By: Germaine Núñez on 03-08-2025 Eosinophils # (Auto) 0.3 10 3/uL 0.0-0.7 [facility] Immature Granulocyte # (Auto) 0.06 10 3/uL High 0.00-0.03 [facility] Troponin I High Sensitivity <4.0 pg/mL Low 4.0-51.3 [facility] Comment on above: CUT-OFF POINTS HAVE BEEN ESTABLISHED BASED ON THE FOURTHUNIVERSAL DEFINITION OF MYOCARDIAL INFARCTION. THE UPPERREFERENCE LIMIT (URL) OF TROPONIN, DEFINED THE 99THPERCENTILE OF cTnI DISTRIBUTION IN A REFERENCE POPULATION,HAS BEEN CONFIRMED THE DECISION THRESHOLD FOR MIDIAGNOSIS.99TH PERCENTILE = 51.4 PG/MLNOTE: HIGH-SENSITIVITY TROPONIN ASSAY IS NOT INTENDED TO BEUSED IN ISOLATION BUT SHOULD BE INTERPRETED IN CONJUNCTIONWITH OTHER DIAGNOSTIC AND CLINICAL INFORMATION. Platelet mean volume Auto (B ld) [Entitic vol]Ordered By: Germaine Núñez on 03-08-2025 Platelet mean volume (Bld) [Entitic vol] 9.5 fL 9.5-13.5 [facility] Platelets Auto (Bld) [#/Vol] Ordered By: Germaine Núñez on 03-08-2025 Platelets (Bld) [#/Vol] 353 10 3/uL 150-450 [facility] RBC Auto (Bld) [#/Vol]Ordere d By: Germaine Núñez on 03-08-2025 RBC (Bld) [#/Vol] 4.38 10 6/uL 4.20-5.40 [facility] Serum or plasma anion gap de terminationOrdered By: Germaine Núñez on 03-08-2025 Anion gap [Moles/Vol] 18.7 mmol/L [facility] CT enterographyon 11-07-2024 CT enterography [facility] [address] CT Scan Report Signed Patient: Poornima Barker MR#: [id number] 745 : 1975 Acct:[id number] Age/Sex: 49 / F ADM Date: 11/07/24 Loc: CT Room: Type: [facility] Attending Dr: Imelda Jiang DO Copies [...] unremarkable. Uterus has been removed.] Peritoneum/Retroperiton eum:The BIOASSAYIST shunt tubing is seen coiled within the pelvis. Trace free fluid seen within the pelvis. No free air or lymphadenopathy.[ Abd wall/Bones:No acute findings. Osseous structures demonstrate degenerative change. No sacroiliitis.[ CT/CT enterography IMPRESSION: No CT evidence of small bowel abnormality. Hepatic steatosis. Impression dictated by: Oscar Roper Jr., D.O. 11/07/2024 10:07 AM Dictation Location: [place] [address] Transcribed By: [facility] 11/07/24 1007 Dictated By: Oscar Roper Jr, DO 11/07/24 1005 Signed By: 11/07/24 1007 Normal [facility] Calprotectin [Mass/mass] in StoolOrdered By: Imelda Jiang on 10-03-2024 Calprotectin (Stl) [Mass/Mass] Calprotectin [Mass/mass] in Stool 0-120 [facility] Comment on above: Concentration Interp retation Follow-Up< 5 - 50 ug/g Normal None>50 -120 ug/g Borderline Re-evaluate in 4-6 weeks >120 ug/g Abnormal Repeat as clinically indicatedPerformed at: [facility] [address] [id number] Director: Dasha Lowery MD, Phone: [phone] Calprotectin (Stl) [Mass/Mass] 65 ug/g 0-120 [facility] Comment on above: Concentration Interp retation Follow-Up< 5 - 50 ug/g Normal None>50 -120 ug/g Borderline Re-evaluate in 4-6 weeks >120 ug/g Abnormal Repeat as clinically indicatedPerformed at: BN - [facility] [address] [place], [place] [id number] Director: Dasha Lowery MD, Phone: [phone] Calprotectin, Fecalon 2024 Calprotectin, Fecal 65 Normal 0-120 [facility] Comment on above: Result Comment: Conc entration Interpretation Follow-Up < 5 - 50 ug/g Normal None >50 -120 ug/g Borderline Re-evaluate in 4-6 weeks >120 ug/g Abnormal Repeat as clinically indicated Performed at: General [facility] - [facility] [address] [place], [place] [id number] Manager Mobility: Dasha Lowery MD, Phone: [phone] PERFORMED BY: [facility] [address] [address] [place] [address] PATHOLOGIST TISSUE SPECIALIST RODNEY QUEZADA M.D. Performed By: #### C ALPROTECT #### [facility] , Laboratory - Chemistry and C hemistry - challengeon 07-26-2024 TSH Qn 1.781 m[IU]/L 0.358-3.740 [facility] Office Visiton 07-25-2024 Follow-up visit [id number] Chanda Barker 1975 F Date Provider Department Center 07/25/2024 [id number] SALCEDO Family History Problem Relation Age of Onset Coronary artery disease Mother Stroke Father Family Status - Relation Status Age at Mother Father Level of Service:70741 AL OFFICE/OUTPATIENT NEW MODERATE MDM 45 MINUTES Reason for Visit and Comments: Syncope [506] - Had syncopal episode back in Apr 2024. Echo was performed a few weeks ago. She did not feel chest pain, SOB, or palpitations. Dizziness [671473] Normal [facility] Pancreatic Elastase, Stoolon 03-28-2024 Pancreatic Elastase, Stool 612 Normal >200 [facility] Comment on above: Result Comment: Resu lt Units: ug Elast./g Severe Pancreatic Insufficiency: <100 Moderate Pancreatic Insufficiency: 100 - 200 Normal: >200 Performed at: [facility] [address] [id number] Manager Mobility: Dasha Lowery MD, Phone: [phone] PERFORMED BY: [place] [address] PATHOLOGIST TISSUE SPECIALIST SHAW ANGELO M.D. Performed By: #### E LASTASE STOOL #### [facility] , XR KUBon 03-28-2024 XR KUB [facility] [place] [address] XRay Report Signed Patient: Poornima Barker MR#: [id number] 745 : 1975 Acct:[id number] Age/Sex: 48 / F ADM Date: 03/28/24 Loc: X Room: Type: [facility] Attending Dr: Imelda Jiang DO Copies [...] John Love M.D.03/28/2024 11:37 AM Dictation Location: [address] By: GRANT 03/28/241136 Dictated By: John Love II, MD 03/28/241131 Signed By: 03/28/241136 Normal [facility] Huseyin 01-07-2024 L Specimen: [id number] Received: 01/07/24 Status: RACHEL Davislisset Num: [id number] Spec Type: Surgical Subm Dr: Imelda Jiang DO Tissues: A Colon Biopsy (RANDOM COLON BX R/O MICROSCO) Procedures: HE/2, Gross/Micro L4 Age/ Patient Sex Location Account Attending Physician Poornima Barker 48/F [id number] Imelda Jiang DO SPEC NUM: [id number] RECD: 01/07/24 STATUS: RACHEL POLANCO NUM: [id number] IDALIA: 01/07/[address]: Imelda Jiang DO ENTERED: 01/07/24 [facility] DR: SPEC TYPE: Surgical DEPT: S ORDERED: [...] cm, entirely submitted in A1. CPT Codes 79166 Specimen: [id number] Received: 01/07/24 Status: RACHLE Polanco Num: [id number] Spec Type: Surgical Subm Dr: Imelda Jiang DO Tissues: A Colon Biopsy (RANDOM COLON BX R/O MICROSCO) Procedures: HE/2, Gross/Micro L4 Patient: Poornima Barker [id number] (Continued) Signed (signature on file) Jeremiah Potts MD 01/09/24 1542 Normal [facility] Elastase.pancreatic [Mass/ma ss] in Stoolon 11-07-2023 Elastase.pancreatic (Stl) [Mass/Mass] 232 >200 [facility] Comment on above: Result Units: ug [address] st./g Severe Pancreatic Insufficiency: <100 Moderate Pancreatic Insufficiency: 100 - 200 Normal: >200Performed at: [address] [id number] Director: Dasha Lowery MD, Phone: [phone] No Panel Informationon 11-06 Clostridium difficile (PCR)(LAB) Negative NEGATIVE [facility] Miscellaneous Test Comment See comment [facility] Comment on above: Specimen Source: ST - Stool - Stool - 700.100 Stool Campylobacter Culture Res 1 See comment [facility] Comment on above: [facility], No Panel InformationOrdered By: Dinesh Bobo on 11-07-2023 E coli Shiga Toxin EIA [facility] Salmonella/Shigella Screen [facility] Nonvisit Note - OTon 023 Nonvisit Note - OT , pt cxl'd in remind system, no reason available. Normal [facility] Nonvisit Note - OTon 023 Nonvisit Note - OT pt cxl'd in remind system, no reason available. Normal [facility] Nonvisit Note - OTon 023 Nonvisit Note - OT Pt. cx, d/t an emergency. [facility] OT - Home Exercise Programon 11-08-2022 OT - Home Exercise Program [id number]#1.00 CD:127 [facility] OT - Progress Noteson 2022 OT - Progress Notes [id number] [id number]#1.00 CD:127 [facility] OT - Orderson 10-20-2022 OT - Orders [id number] [id number]#1.00 CD:127 [facility] OT - Assessmentson OT - Assessments [id number] 427 [id number]#1.00C D:127 [facility] OT - Consentson 10-19-2022 OT - Consents [id number] 427 [id number]#1.00C D:127 [facility] OT - Home Exercise Programon 10-19-2022 OT - Home Exercise Program [id number]#1.00C D:127 [facility] Coding Summary.on 10-12-2022 Coding Summary. CD:[id number] Ww+ PGhlYWQ+ZH8GHXCjZ52djPJ tvV2oC2RYUMzZSqtzDOBKVD tZWiTcezDoAW1tcQRjGCFx IC8+IK5rOAHaKapnqMYpr1Q 6sBG2U61eeg4dPPzpmUA5KR MkNeItdarzl3manZs2XXwfN mluOyBt CSVxnW29VXI8qX16Iv32sJB nsVXgs7bouMt6WvPvJLCmPB P8kSuvWMspi2ZaTXZcE08cg YSpt9T7 MHHgrJesrFOvBlYfjMN4aF9 xSFrqbkffe0ppotctLfi1hx 58zATis3T2eEH1P6SemzA0D GJvbGQg RaqwgAYWfA9blcwsn6cyzjg jUjNbEYZiVSl5ABi7UYMigZ lpZpLlGI54FAA0IGNusmTnJ 2FsLWFs uYsrGcH6t6L4Aw4JC7AQYwo qD0QIQZBOXPxesND+PC90cj 32S5XeDkmnVhh5TLAfGGT9r DD5cN5l ITArOAbdk3Z6lJN6M2TaliP vjp5xh7rrPOOyFMvcP97edW Pii8K5CZVaeYM6LOHbgLwfE iBzaG93 Oyc+GGWhwGzlj3YaCwwnc3m zn1sczGh4XjzqCHXbxgNfrB wkSQF9u4HjSk9sTFUgpWP1i IJ6vZ2q ZgWoNlQ4FWheG007OgFoeJH uPrbnC17vI2SkmCU+PHRyPj n9TBOqxDvgGR6oZ8GuIRVsd mctbGVm pUpuRF0bBLVacwovKDKreN1 mWHFvH3p7LoUrXwV8FEaiX7 ScSRPyfeyjNs56rM3fOpYdT jC5LIms M3WkzfQ5BYBdnPPwNHxeTTG 3G36pt7S0TVFtKNKgOBS6iJ T5zH1swHgqklyyeFKcmPtuz mVydGlj BYeeRLxrM258JWHrgMtcDbX vZGluZyBEYXRlOiAgMDQvMj AvMjAyMzwvdGQ+WHItEFA2b WxlPSAn tCKnPCtsSe0hlNhhrAraPQ2 jQVKujkldYZDmzQ5qWESgeU VsiMrqZY2nQNBfwtdnb562I iAxMHB0 PRFkjXYjV9VxbH2iYqQxWSE sOOOxF8JhcQCrLEhiI341BT jjUgM8LUTkisUpK7RcLGXgj WduOiB0 m9M1Rq1Es3KgeezpE0GpcOH sEkFfYegrTYx1I3ZmPsctrC I+DL50VLYlFI93VFd1ONX7k WxlPSdi QDHrC8GmqC7nTgTdQIXkWFS kOyc+PHRhYmxlIHdpZHRoPS eqZTRkUuZdfLrnEA1qUq0xE GVyLWNv hRbrgWJcKiJpw8qhERFzSEo vNG7vmOvlJ6LrfNJ4SKOkw2 k7Nv29K25oS4QdsCO+PGNvb IT4dUG4 pE7fHjWqKdJ2SQxnX863JbP axJDcIzfta3xkg4ctoPc9Cc Z4WDLvzqKdsXdpHIW4c0HwJ s81I04r IHdpZHRoPSIxNSUiIHZhbGl xjv2ilJ9fSi0+GRIcxQR9sM H8uM3tPgOrPdM0SEtcK033X nRvcCIv Uooso4heb7jrsMt5UpPaQIL cfiPzwXohTOU1e3CvBw90Z4 AbeJmks9VtRxu6yi50nHPjs 0W9qGQ0 U5RoWMPqnydfhXShyWfqDT1 yOPWrrankGTThfZ1wHINdM9 v7NjHeHyH4JYgcG8KsnkP1N GJvbGQg FQDmpGIGeK9ncftid6rqnfy rMiVyFIKcUAu0YLq4BHVecW nzEeNrRBZ7HwO6KVU1fXBxp T1pgOfx wfrodY7xMlq+JNK6vBSxcAC YNW0yZoxlyOU+GEFlKOJ9wU jzWOxqLYJqjD9hFHDrT8d2I iAwLjA1 PIhfO8QitoV0GAOqdZPvOPU yuGSIkW6chyshm8scajhyEv JjIAQbOZb9IYc7CZAknEmuJ iBsZWZ0 RgU5FJS7mHAksP6rjVmuacx ejV9nTrk+AfeiaXlyJRO5WL a7L0FsTtr6ESFhlYjmRL4ph GFkZGlu Dp8lsIkniCkeJW9rTUCsgej we165CqXgi3zmNYEftUDlWW puQAF1A77ig5V9VYTqMHUdH FY7kKL8 iG0iqXkehbuorVBhzIpynfK jjYdfIXwhOEhtA994CQBidM owFbMyZQl4W3EkAdv8SLVqh OwdYE4o wPChMYibJe7wrKhlqDbrNW6 lHWYywtnoz274TkRiz6qqIP EatFHwYSlfEEV9F46sr0I7Z CMwMDAw UWZ8aXP3uD4hgJtbjxrjkKR mdDsgdmVydGljYWwtYWxpZ2 40XIIolMbmOeVweEq3N1WvS pe5DCCb eEuxTJ7leQNkXWtcWb4ecDu zsLwrGZ5wCEYhwlrck879Uq Nzn6yoKCOkkBKnBSmvBUE1S 86vg2K7 HEIcDMZuMVG9bQQ1xW6woUi nbjogbGVmdDsgdmVydGljYW pxUNdmA790BJSpgKgyHsDmb GllbnQg OHjyZBi5Y1MpCzshrYE+PC9 3BTLeKY00yYLwjKMgh7nwyW g5YpEuAVQmKLM5bTaxNOvkt 3JkZXIt V56xdWXla3R1HYVlpBafhRU sPdSfvZS9tQ2pELvlonqit1 tulayfPxayw8crfw53mV19U 29sIHdp ZHRoPSIzMCUiIHZhbGlnbj0 zjM0wKp2+XIAvqEK0fAH8yA 2rOWPlRhF7YBonU673InCra CIvPjxj t4vam9htpLp1QrY6CMUmrzO irDqyURP7l0BaIi94A25dZN dpZHRoPSIyMCUiIHZhbGlnb i3thF6a Ii8+WWLanOX1nVK0dZ3vLcT kVbG2NUdiG079GvZunRKbYa ikS90tZ4BcdEK+UEPkToo4S CBzdHls SH4olEDsJDhmJr0pARJ0QpX yVaSdQVflP5NwAITwmbiotv zqvJR6RWCiFZJjhA73Fk5gs DogMTBw aVPCoF2fmxscu3qduznbBvL mMVZwNRx2DEf0EYQlwOfgWp EbQAA6GfW4ZWV5xBIcaX4ty Glnbjog dP3qU5IlMWKjnaspVf45dR9 zYmKaPpJ4QKikMed+VkVJVE nrYARWAKOYSJg7R2CeEil0J CBzdHls JJ2rjFCwDSmbOp3emFwfoEi jWW5qIYTmqpcoFZTqfB0zIY PbzBHoaUbfRD7rUDOmcavex 250OiAx TJW5XOKeqXBjC3CxtB9pPuU cVMMqVSMeT6YqvQVlLOyjD0 17ZSheGlM2VONgmxNtD5TwP WFsaWdu SbV2d4Q7Gi4yZp0nXD9uNKd 8FV48CZ23vVZam6L1yKS7R2 EvXXHlsxamriilhEM0WSCuZ DUwaW47 qIGtZOreZm2rf5G3a265NTU nRNWwrN65Uh0wlDbkKCNtxS VFtB3gxrygk0lalyzbEkXgS DAwMDt0 KCp4POEveFfyWdShOEK4SuM 7GYS3pCVmlS7smJkyfmhnsW 9wOyc+XHzwFSEvgbR9L5JjE ks6CLQs jSdjIU8qgOUmNHlfFw9kxCj mnOlqZP9oYVNyqxjsDCXggI 3wPONykSZmcFpjON6gSITlb rroq499 GuTyKIK6GQWstGQbB5YtzW0 eWwMiRABnAXGtE5XfaCRgEO yqL892DSrvApN3PMLcrpQiN 2FsLWFs wMymMlE2o5I3Qd7NIV7xuKG 3N2XpCsn6AXHsuWjgDF8cxB IjSXapHz3yqRkmcUteGI1nB TBpbjtw CTSiyR5kJFYlfXLetNfpZG4 nGFLaaoghe377HcLgQPN0WX IdbAYqE1NozN2rZrCiDSBwL BNuS7Aa tWEbYLirB276USuxFjX3ZMV kvjGeK0WhQUPywDfjQzV8q8 U5Km4ZXWZ2hhCqmii0T3YhD jwvdHI+ JK46RSOrOM41kRTbnSEqw7f xhFz7WbWmSKHmXNK4xZsbES xlr6HgPQChL83xiZZpd1U9K GNvbGxh gUUaKmFevKB1oT6hJYbemdb qb1dtlgqmJxuwn5vuze41gP 53V38rDGslWXXaHVAfMEWvB HZhbGln pp3owX0iKd6+RLPzjPS5cOJ 9kN4gWdKvHxG0JWeqR270Ho UmkNTuBgxlx9ugc3dtnKq6H jIwJSIg nzQvzDqwGKU0c6McRj09D13 sIHdpZHRoPSIyMCUiIHZhbG znbn7ldT8kKt3+IX2bg3ucv m11zM61 dHI+JBTfZBN3cMkoBFtiXHC qwT2yCFflRnP1MGNeHmIjcD 49kPVfHVfkZy5huZrldWqhW V3hRNIu lhcey764KeUig3nrWVIomPN aYFjkVTO9V73mm6D7PAIfZS EzWGY4uXE0lG5muBsjfiibu GVmdDsg dyLorAupZKhyUQupB585XOE tmFdeDjHeaVXlY7opqmEFXA 1lOjwvdGQ+DBPzHPY3pMjeY SdwYWRk xL2wRUWuA4i7RlXlSkF2KKx kT3WellJ3UYFywVDnMAVfmU LUiB9yiypxc1fpijwuMmOqR DAwMDt0 WIk2LHRlhFzqMqMaADU7IoB 9WBL8gRLyrU4xdAdctkfrwX 9wOyc+RklOOjwvdGQ+PHRkI UA8fKkj JDxjPEIegQ0cNMTrA8e1UoL jMtH4DSowD4JxyvH5DWZymQ XjXIBntATNeG1peemji4ubi jogIzAw JVRrHLl1RTv4VHPseMlkWxV uRKC3ZzW1RJA4gJBkhB5jnW ituekmkU6mWhw+TVJOOjwvd GQ+PHRk CUJ5eIanIBylXKXygF6jDSM xF6o9VuMgShN2XJirV4Jsfy N4ECRrtECvZWNttHTQhI1uy aexf5wp nbxqOvAhWNBbQYg0ORk0FUM hhWycRmOoRAT8BoG3RKX6hI CerE0dqSxvigjbfA4wBla+U LY5PGP2 KR40EQ73D0KkGcgjwPNfwHX +PHRhYmxlIHdpZHRoPScxMD PyLmKfcJddMU4sUj6zRRVgJ WNvbGxh cHNlOiBj (more content not included)... [facility] Consent for Treatmenton 09-23 Consent for Treatment [id number]#1.00C D:127 [facility] OT - Orderson 10-11-2022 OT - Orders [id number]#1.00C D:127 [facility] PT - Orderson 10-11-2022 PT - Orders [id number]#1.00 CD:127 [facility] Comment on above: Other Comment: ot... not pt IntraOperative Documentson 0 08-31-2022 IntraOperative Documents [id number]#1.00C D:127 [facility] Coding Summary.on 08-30-2022 Coding Summary. CD:[id number] Gh0 bWw+PGhlYWQ+FQ4ZSIStQ95 tpRMfgX1cS4EIFSuGNitzKR YKDJnTNgChtuUkZI7mnLJiB XJu IC8+DT8sNGFdIbqhnLAkk5I 1tRX3W00twr7bVYowmPV9GI JhEiSdreuqo5mgtAg5HMffC mluOyBt BGBxbL74UJS3pV40An23yNA knYArt6cpeVm1FoZmZCYwNO K6sMcnVNrdy0MlUWIrV52uh FEra4U9 OEBqfCeyvLAgLcBpdDQ1mL1 rCMtjvmkbq8edrndhOzo9je 31tKHhw1Z6dGC6O2AtuzK9N GJvbGQg MdtslYXEkW7uqujpz5lxsgx fBqUbNSXxNWg7EKe4MXRzzV dqEvZmMF89XET3RLKlnzNsF 2FsLWFs jWodZvT2l5C0Cx8EV2JEAws sQ2OXIPLCSShogRV+PC90cj 66Q0KlXylvStp6STCcKYN6k KD6nT1q DPXxRCdjf0J5wBM3J2VxqyB mfh4ru3bmHUXwDAjlL84jiU Qtx1T1GZCxhVI9DBAugSfqQ iBzaG93 Oyc+NOXxgNsnv5JsVadtp1w yj3pbwUp2RrzuRBGkbzYmrU chPUX7m9VaZv6pMUOqqJF1q MQ7kD4a BgZvFfW1LFqlN310EaDabRR dXaggC59jB5ZvpUS+PHRyPj m6UULjqPzbGQ5qO9FbKOOks mctbGVm lVsdMJ5kKSBtghiaXFLnuL9 rTSGaL5g9VwLjKaB0BZolW0 OvYMLoefrbJv66yB8hXxNmN lK3CSjv X7YxgyT2DXArkUSlTMulROY 1E43iu1V5HZXaXHPlCCK8mG Y1hK0xkCrjalquzTLbqIkxo mVydGlj WLegXUyeA479APAofFbaKvG vZGluZyBEYXRlOiAgMDMvMD gvMjAyMzwvdGQ+ZVEnMVH8o WxlPSAn kDGtVUelMg2djEafiJbmJX0 mVZWenusvMFXsiN2kQSRzyU EvkQeuWS0hEGThvhdfm525Q iAxMHB0 IIKszSJaD0VstR8qJjCyMKU jTCKyZ4LwtAXqKSrtK017SR rdJvP2JHNbohKcC3MrLPOqa WduOiB0 j3C8Xc4Zu3PfsrylQ1OdkPJ bSaOiAkziYGq2B8CmEspihP I+VY61JUCyMY11TMz4TYY4g WxlPSdi QFQqH7JjbM7nXhYaRGXxQQE kOyc+PHRhYmxlIHdpZHRoPS dcHRCwFoGfjCpeAJ9lHt4sI GVyLWNv uXdhjXAbGzQrv5mqLOZlQBx gVO8txLcvR8CzbHO8TUDpg4 o6Xa58P41dB9GvdQP+PGNvb MN7oTS0 hU9tSoBuVyH2ARhqU108GbV eeRRoGppgr9lld3lvaNw1Bg X0IDSktdBowPieWMF8d9VfS h42A89y IHdpZHRoPSIxNSUiIHZhbGl jyd9aoK5gWj6+VPIuuTG7aM K4tT8eEvHuTaZ4PYizM847B nRvcCIv Vdvdd7tup2bhjRi6MyPiGEW dswWioWsgLIT3n4NhYr05D8 IbmBfsr8TgOpr3es50zEAwu 8G7kMZ0 A2YfCRGzbgyjvWBkeYndYV6 qDTVypqgeKPVzhN3vLNBwP0 q1OuNpPtQ0VBcmF2BpnrF5K GJvbGQg TZGgkIXJgB1hbxmmb9ycznb pOsKyBEMwSTw9JIl2KZMbwE bzPrRbBZW8FwE2YGZ5iQAgq Q9yxHat wyjibZ3xKoy+KNJ5oGKciQR VID7vKcubzKL+GQLoEQX3bS xlMDwdEZHabJ7gSNGcP8v7V iAwLjA1 ZUmtP7YavqD7GQNpbOMgOMC yvEMKyH2pyvcko9oafcpbUl ZvTSOcXMc8HGx6QMWvvXadD iBsZWZ0 HjO8DYV6eZTmhK5ctTvrrfz stR0dMob+KhqjdScyWSH6CG c8A1ZrMyq5IWUyuNxwCJ7ri GFkZGlu Nu7myUvwoAznUD2tTDAykbz zn205HaUzd8tnQLIggJXpXF mtRVG0Q86jz0N0XNEiJICaH LP7cWN3 cQ6wdFcwtzcztLHhfPrdrrA zsKrfYSrtWMbpB147VMUegA gwVdHsCOw8X1VwVdw2QGVgv QlpBM6q sMYoNPtnKi8oyTdlxNycLK0 rVCPtdkqhz489QjEkw9sbFW FwdDDmYGjzFPH5C23yj6H6L CMwMDAw WHA7mOP9yR2xiJikpbhbfIG mdDsgdmVydGljYWwtYWxpZ2 57OZSquIntUxEekWf1B7FpM ri9LHKm rFwrYX1jwLDeNEkdXy3ggLu rmYknGX8cUXUqiukxx176Sg Ndc9brFLSwlNKiXFnvEBP4K 84bu6G5 ATVdZXVoNKC9dXV3sA0kmUk nbjogbGVmdDsgdmVydGljYW mbVIlsN663XZKtbFmaVnGji GllbnQg KDqhGQt5Z7OmUukovTZ+PC9 9JMMqIP15jKOcePXcu6xuhU r2DoNuJIKiIUE9wYvdDRrsj 3JkZXIt V77fpXXgq7Z8VYZryBnnxWD hIlXamIO6oH9sULrbsvstl4 rwrwdqLlsdf9mztf02lA52F 29sIHdp ZHRoPSIzMCUiIHZhbGlnbj0 laV0nFh0+WRHhcFR8cWV7vR 0jUEQhUtD8XMpcP689UmEsn CIvPjxj v1lld5ebeXo4RhG2BVOtuwZ xqNuaXFY0q9JjRz85Y78kYC dpZHRoPSIyMCUiIHZhbGlnb k9pjZ2j Ii8+TSEfsOC4iCM6dM2gGdP ySmN3FWwcL235RqRppQUxLi kwV24oJ4FqwBY+HXHwIuq8S CBzdHls WU2mgLAhNAheFt5nYKP5OdM iXsFnSKisM4LoRZOadrajzo bkdYO7CKQqOYClmK18Qm1eg DogMTBw eMCDqO1yjtkkj1jtgvfgEiC uGIVpCDx5XNm0BJGknHwfYv KdTVU3UkH8LWB6zWGrgJ0jw Glnbjog gX5hA1XcWUOogtrhMe44cV9 dUlWiDjY0GGssMlc+VkVJVE cgWCXYSLHIKRs2P1SvJir6H CBzdHls FT5lwMHuOHapMw6rkZfpfRi oAI3kXXYjjymlHAWnnK6vHN KomOMteQeoPU2nUJKyokksl 250OiAx RTX7YLSvgQUoU5TvpY8cNdO xTZLgTDGbS6JldZEzGKomP9 78NLtmFhO7SURvmdQrX1OyH WFsaWdu AuZ9x0J8Uh5xDo8fPU6bRPe 2NP47RS91eMQjb8W5uHF0I6 QzXNLjkziuqfixjRB5ZSKnA DUwaW47 vCHwXVotYm8on7D4n344FPA jFEXfmD25Zb9yoFryHXXblE YDbG6pycdjq5hlpddiIvLnW DAwMDt0 OZq0FOHlyVivQnXvEKI6OyA 7UUK7gZGndS2ziDjewtamvR 9wOyc+RIdyOCMegdX7Z7UmF ol4WUIm xLkbAK7rmZQgUWrsCn9vnEn lrQkfGW7yKMAzwgquBIYjwV 4xIPMdlDMmlNjbGO1tMTXdy nqvn963 JiBwNVY3CUJeoPYxO8ArzD1 xLqCzGEVuRZRpO1DppBTqCV oqI491IRszWjD8WGYssnDmG 2FsLWFs jXioDvN1u3M1Tv8OJK3ejLQ 8J7JzQuc4JFIsaAbfPR0yzP EbQBtaLf9vaIzozKxuDS9dK TBpbjtw ZEYdrJ6eJVPcbYNqpRvbQZ9 tVDThpzwes616TiNkBSL1AH TtaKIuZ1AoqU2jUxOyXZFlK GRsQ9Gx bMVfGWhpG713KMkgJoK2YHY krgPcU4HzGJWfjTcmWcN9v3 H1Xw3VbFGlYWMwDG51ZS15D U51B7Em PjwvdGFibGU+PHRhYmxlIHd pZHRoPScxMDAlJyBzdHlsZT 5iTs5pDNYrBIQofVhsiPPnU hPwv5rc YUEmSMnkTY4bzNxrH6SznBS 7LSWdc5x7Ci68Z00lA0FdwG A+ONWewAX3eWH2sE9nRdBmZ kB8UKho A441SpIgqTOdFwavs0rrr0s fvIl4AoOiUZIhtkCasYxzGL L2m0LqGh12B02kHQucJMFfW SIyMCUi UVMfxRffwi7dkH2sOo5+PGN hnJB3cIH6kU5nYrWyGoP4SD arE323AfZehACnTesgB12bH 3JvdXA+ OOIbAhd0AMKrjUmaIL5ibQT jCQtgQh5gTKC8ZySlLuUpIF akS2DzVYPbbeqwakrjhRP6K DAuMDUw dS75Ib1wpRqaJv4aZEIoDAH 0RQMptTKgT0OquO7jNvBoJC SoIBPjV1PvtYQhLIklG771G GxlZnQ7 LPGiwmFeR6QcQHVubYvoNwF 2a9R5Qj9YnKyrmRSkPO5tPd BiRNq0Y6KyWmj9XXSyaWxwD D5exBKs JCihYu9ksDabgWfsLW6rMCW hlcrsx622MkStb2cgUANbeH UfBTzbBKU0V91ru7B7BJBvD DAwMDA7 tXG9eS4djZvglpawwLMbwSx lomRkzIjrCIrbLKdgT910UX XnbVlnGnEVLdf7H0EbAep8X CBzdHls BG9wtYNaIZbwPz1vhSfotAo dJL9oJNPtiooue730GvOem8 maZEZjsSQlNWbfTSW1Q35jy 9Q1COSs ZIJeAPY0kJN7rL0qzPuhohs gbGVmdDsgdmVydGljYWwtYW pnQ835WUDedGdfSf0TTlv8A 0LsFpz9 FEIwnNvvSD7ogROhNGlgGx5 egJdabCxqSA4nFHEqrbvil7 06GfAqd6dtAYTecUPmLFgfM UL1W36a w0U9IRAyLPCdQHM1rAZ4yV9 hbGlnbjogbGVmdDsgdmVydG tgVWbmSMctG479ARXkxTmcN lBheWVy OjwvdGQ+YB40ln83V1IxAgv nKkx0NGWkJNW0sWU8fA7lHS ArGNqzv8P8vUH7E6FazjIuc z5lq3ga YXBz (more content not included)... [facility] Physician Orderon 08-30-2022 Physician Order [id number] [facility] [id number] D:127 [facility] Coding Summary.on 08-21-2022 Coding Summary. CD:[id number] Gh0 bWw+PGhlYWQ+KA4CAUFfB89 qsGJuwQ9LL1dSBD7CHDYIRC KKJP8QNA6fzXH4YPukV0Nrq iAv EkqdwEKtJA69ALl9DPG7tEa yCKftlA6ugEHjA9z2LqFdUX 47qV28HFqzNJEsHqS8PnNxw jsgbWFy Q3dmTnEhiTTmUch+PHRhYmx lIHdpZHRoPScxMDAlJyBzdH jyTU5xEd9rICBwRWAexTbtk HNlOiBj l7aeBJPuCDymWL5kjLofV3M ukQY7ZSIxh6e3Hd68vJW+PH MyREL6eXrmXPjry719IuNkz 3tkDPN7 tVCzJHlmZEP6B97zn3U9BEB kDVDlDMJ3yKH8wH3szTadtn tmT3AjlUVaVuX7RPB0cVPcw K7fdZnp ljhvyL8vCrt+Y27ARH0NOIK CDM8TApb0Y8OoIpzycXE+PC 09HHAsVR64tCBjhMTmk2epr Bv4HpIm RNGkLJV9iFfeZNmoz4TnTTI bB85erKSzo0L9FIRiiLfmaD JgMyJbsEH2yF1iJSxvxsnul 2hvdzsn Vnvpr8zimv43iY97F06jGOf gZNHoLGS0UWJlYABivJgcrq 6seY2vLw2+KRzpl6uxh5hwl Vi3JfHm XPYnlnEvgBrkDER5i1WdNe4 5C7WaeDwtp4BkVhj8yr45fM Hnf3L4aEC5JKjrMIUdpZ9dM WxlZnQ6 QKTpIiJetT83bKVwRZfsHk1 wbDpbeDppJQ1mXQLzmzqoMI OuhQ1bXCHjwHXjoHhwFY9rF TBpbjtm t633HmXmLZL8NXXzuQVzV0U eqB4aEaKbMMEhPLKdL3FfeS HcUWpoB888AObbHaR1VFPox lIfQ1Xa RIPpcCazQhQ9a4F9Sk4Ph3U hyxzxHHN3KVegIPYjSeB8At MpMuC9J1YoRqb3IVLxdZdlA J6yL0Uc QCWdvmopwygvaZA4WNUjUFZ esK31iSPhQQdeEv4uh9H6u4 34JURvXDNcpW07As3fuPwoJ TBwdCBU aZ1nbixso8yiygpdWiVcRGO wLPf8ZLn7NPQutVacOyLhEF Q4FyO6XZG0hQCctR5ufJshg hxreT6f Oyc+F96nqW4tVHY2RSX3eiw tPABfslJwAP71NJ21Y9CgNp wvdGFibGU+PGRpdiBzdHlsZ D4bBsEj u2bcv4FzSTdsU2PpGIJgINw cSjs6AGQlPEG4rAP7dP9wSL YzAGazn9Q3fWL5X6DbcuGxe w6fh4tn TGArAYscH31bwWWei2P7AAL lrBT9ERLcxGimArLplH00Pq c+MSHemLqks0WeQserg3fao 7jttXw9 VjZdOHPxgdEaoOumBQF6j0K bSf65P29nNCboNSGpGBVkAY JzQLJovBdrim3spV4pDi9+P GNvbCB3 oIB8mK2sVKDkToT6QGkzR86 7WtZbhXKiCwvlj6bdc9srsY m2HmCiMPYhbnDxbKpqQUX6l 0EbVg36 W47wTFshPYHqUGAdROYmDXE grQccas3wxR7aJc8+PC9jb2 iqyo98zU08wPV+KXUrCEH4g WxlPSdw YJEodI7sVYqoUxK9MKSiEvP ggL68nFTsXQdrAx3heNfjmU qbHV2iBLFbjdrtz426PuUpa 2xkIDEw aLZuDIbaVUR0E86ln7O9ICC bUYTkJWI4tNK5qI9qlYnaxp ogbGVmdDsgdmVydGljYWwtY UcmC389 IHRvcDsnPlBhdGllbnQgTmF uRFo5L4KqBze0XEXsaJoyBK 2wwUEoZTddLe1vvHwyfXcvG B3iDTKt cxlpy782TsVud9yqNHVubNJ vCGfmEWV4Y67jf6I6EIQpMJ NcPVH3bUZ2pV7hfBjykcfxe GVmdDsg cuHecJqrJApbQFivO056PZZ zdSutYvZpyhAsVYMduMI4HK 06TE91kYSdm5E0lJV9O3PnM GRpbmct vmhdaZH7HSLoQNOnnD34Ss5 fxCvhZu4eEBLiCCJ3CEZzgG IqG6LcxU9iBeLqDXGmDBTrF 3RleHQt OZlvG967ADbqWoZ2CHImyzW sR6GdCXHuuTkfXaZ0h9V9Ij 6DQ3I9GN68EA78tKFnz9L5h SZ6K8Lp OGLlgytigwxmnYE3NOLfSWY prX35Uc9moTadMu0aVCKxFV P7THWtcMChK8ObsF1kRsExR DAwMDAw J9ObcTLhQHrtG742TPzqOjA 5FEQgieUrB3CxDVHwkJzjQw H8x4T6Uu5STWw9WS24ZK61e AXwf6U6 kKO3B0BhIAWfqrsiamxhuPF 4VUPyNUUtlC64Oi7smNcwYo 9aPUKkNXJ6AAInmFExU4Mwe B6uHrCp BYRwSNUtW4PbnCFnWTfoO23 5BKzpSbT2BARupcGnP6EeUQ NhqLwxNlH7a2D9Ue6VLVQeU C49LRG6 sSN4FG18DS00T8ExInlzmPM ibGU+PHRhYmxlIHdpZHRoPS oeBYVxXyBlrJiwDG0sQw2wA GVyLWNv qZybpWUeQcTed0myHZZhGRh sXJ8xlHzgB0RsiRZ8XJQgg8 i5Xf06Q66hX4UhbCA+PGNvb VV0wCI3 nV4gZbKoHwU0MMywB400KnA ugITfLgmsk1ojx2mmyGw2Gf M0HQWqjhGmtLqvAMV7o0ZcD j68N55q IHdpZHRoPSIxNSUiIHZhbGl qby6ozM1sGh0+WFEcxKN3fZ I4fQ5jHuPnVqJ8VQaaV964P nRvcCIv Ruggq3plw9eivUr2ZxZoIHX imkTwaVymQIN3j2RbPf90R6 JonXrlb9EeOfy9lt97vENnd 9Y7zTN2 M6EiPGYiuugakHPsxTbnTN3 iNVVnixpyJXBomS3xWQZfF2 e5IqVhGsI4CRvqR7SdrzR8B DEwcHQg DJswACN2X17nb1V5EOFdEUF pBHF6gGN6sO0dwUohflmoyF VmdDsgdmVydGljYWwtYWxpZ 246IHRv gVpdHNDohO7dOPHsyAYdkFi mAK2fEXNpincoKgUEMTLBXI QGExtZZCFZPD77XJ98yBUmj 3J4rCB4 J0TeKXLynhrvsmaqfLS4VRB rZFQraE30sCYyTHqiXd1rf6 N2b998NQNlGUEkbY90Er8ec DogMTBw dAEAqN1tvaivu8vqgpzfVgV pYSBxMJd4MWr6YPBkyXvhKc KpEOA2DrL9VOI8gQNgsI7ko Glnbjog rE9cVar+FLRfFNzoFDd0Rxs vdGQ+ZYVdQMP9bFeeEGljRW ConW8rHCDaN6s9HhPwBbD8T JqmW0Nw UGRrswlmWe38eR4tAqOnPzN 6OZtcA0VotsZ5SOBztYUaMK mwFPI3W72jx0N5JCMgBUQmD DF2cHT8 bN5wzWovazgesQSofRzfpaX qeXrsQOzzRKfqC113RYRrpM lyVuY5UTirFKCpCD32FS64e EFzp8L3 yPT6K8DjFWJveyekgheeeNX 8BZGdNDWzqH36pFNaJSvsSh 1aq3G2x972RQTsIQRmdN20Z c9htQwb NWHflMMPdX6koanis5rxvxg aZlObJOJtLLz3VCs1MSCxnG dfQpEgQXL4FpJ9JZE0pBHir Q8ryWsh ucbqfT0mRzp+RmVtYWxlPC9 5FK59tLSvp7G8nQA8E8PjAT SrfqprslrhsAI1XGBhHGEqp C02gQBi BKksRd9qb9X5e074UYPfOSQ znD28Bi1qsCrxUQPtiNUZwK 8fvadcr1mlhjohIuPlGLGuC Xo9OUf9 SYTjyAnpKbVvRNE7VmP8OIJ 4iRSqgF3bpFdxtzpbvM0jRi c+GA0vzCgxuP9xjZ8BRF7mH ERheSBT fFCsYLX4KF25NF13K0TbXuo vdGFibGU+PHRhYmxlIHdpZH SzBOeeXLFhUfRpzRujLX0tM i2kIIIo SYKccPadbMQwFbChy9kuJZI cHBbmGP7afOzkR8PaxVY1RE Lck7p5Tf44P70rR3GcaUZ+P GNvbCB3 ePC9rL5qUzGzXpB5TJfiR01 4OuBomWOdXwrsw2hpv7kucP c6LiTpAGUuliBsqHbtJOJ0k 6JuPi03 B80oGZxlCEPqYVFeWQXmMFF yiDuuxr3sbZ2tFy7+PGNvbC Y4qHJ9oS3vYuPvLnT2JDaiT 249InRv sEImKbzlD86dK2QmnEG+PHR qRds0ZJFcoJnaEA4zlEMxZS gfMo0lBBC1XuDcMwUsGWqtE 3BhZGRp zlqfkmtikOV8NZIdCHWawH7 7Lo5zxLafEx5wTDMkRFH7JG VcaEUfE9OzzC2iTvWjXTTqS JLdV6Pn xQYeEWhzI570NMbzIvR8NTG znyXqK3GaFUXtcFwlHzF8f1 C5Se8ZgBcviQNaOL7tRtJlT Lo5D7Lw Byt6BJLadCniUR7aoRWuRCg bCq7djBqdfHhhMB7iCWIxqp pve654ObWyi0flIYKjxNZoA GltZXM7 E64da9Y1VXLpNTFpMKR8mJM 1wA2ziTynljctaPEntSihuz FsvBrpUBceLFzyU125JVCey DsnPkZJ Nux1V2ZbTif9LRZlkQogMY3 naJWuPVyeBm1coXvddUoaTL 9yILLsncllj310PiOfz2saN DEwcHQg XMkwGKH9J79wp0X7AKAhHOB qMAZ4lKM9eK9igJnsljhgjF VmdDsgdmVydGljYWwtYWxpZ 246IHRv xFccNz4SUiu1U5KvOhv4LHV paEhwWX7inFHhTKmkGk9ppZ yarXhgVD7eBLYfplmpf505B aPtj7mf HRVyjENtVVxzJOB0J54ew9V 2WTRvJSPiYTU4yYE1rV1rdG lnbjogbGVmdDsgdmVydGljY WwtYWxp M548ESPlhEisNmAeuBGnIvy vdGQ+VP98zs32Z6ZbIcbvSh j0QCTfPXX7nNT9zP7cORVdM Rkxx9R6 bGU9 (more content not included)... Normal [facility] Consent for Anesthesiaon Consent for Anesthesia [id number]#1.00 CD:127 Normal [facility] Discharge Instructionson Discharge Instructions [id number]#1.00 CD:127 Normal [facility] IntraOperative Documentson 0 08-21-2022 IntraOperative Documents [id number]#1.00 CD:127 [facility] IntraOperative Documents [id number]#1.00 CD:127 Normal [facility] Main OR Intraoperative Recor don 08-21-2022 Main OR Intraoperative Record IntraOp Document Type FT Summary Primary Physician: Reza Proctor DO Finalized Date/Time: 08/21/22 12:38:52 Pt. Name: POORNIMA BARKER/Sex: 1975 Female Med Rec #: [id number] Physician: Reza Proctor DO Financial #: [id number] Pt. 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 Normal [facility] Preoperative Documentson Preoperative Documents [id number]#1.00 CD:127 Normal [facility] Consent for Treatmenton 07-27 Consent for Treatment [id number] D:127 Normal [facility] H&P Updateon 08-18-2022 H&P Update [id number] D:127 Normal [facility] Inpatient Patient Summaryon 08-18-2022 Inpatient Patient Summary [address] [address] [facility] Clinical Discharge Instructions PERSON INFORMATION Name: POORNIMA BARKER PHYSICIANS Admitting Physician: Reza Proctor DO Attending Physician: Reza Proctor DO PCP: DINESH BOBO MD Discharge Diagnosis: Comment: PATIENT EDUCATION INFORMATION Instructions: Ric Proctor - Upper Extremity Fracture Surgery (Custom); Post Op Patient Instructions - FT (Custom) Medication Leaflets: Follow up: MEDICATION LIST [facility] [address] [place], [place] [id number], [phone] acetaminophen-hydrocodo ne ([place] 325 mg-5 mg oral tablet) 1-2 tab(s) Oral q4hr; as needed for pain. Refills: 0. docusate (Colace 100 mg Cap) 1 Capsules By Mouth 2 times a day as needed for constipation. Refills: 0. Medications to Continue Taking That Have Changed [facility] [address] [place], [place] [id number], [phone] START: ibuprofen (ibuprofen 600 mg Tab) 1 Tablets By Mouth every 8 hours as needed as needed for pain. with food or milk. Refills: 0. Medications to Continue with No Changes Other Medications cranberry (cranberry oral capsule) esomeprazole (Nexium 40 mg Cap-EC) 1 Capsules By Mouth every day. Comment: Normal [facility] Main OR PACU I Recordon 07-27 Main OR PACU I Record PACU Phase I Docum ent Type FT Summary Primary Physician: Reza Proctor DO Finalized Date/Time: 08/18/22 13:17:16 Pt. Name: POORNIMA BARKER /Sex: 1975 Female Med Rec #: [id number] Physician: Reza Proctor DO Financial #: [id number] Pt. Type: A Room/Bed: [facility]/ Admit/Disch: 08/18/22 06:24:59 - Institution: Case Times [...] By: Luz Frederick RN 08/18/22 13:17 Normal [facility] Main OR PACU II Recordon Main OR PACU II Record PACU Phase II Doc ument Type FT Summary Primary Physician: Reza Proctor DO Finalized Date/Time: 08/18/22 14:50:45 Pt. Name: POORNIMA BARKER/Sex: 1975 Female Med Rec #: [id number] Physician: Reza Proctor DO Financial #: [id number] Pt. Type: A Room/Bed: [place] [address] Admit/Disch: 08/18/22 06:24:59 - Institution: Case Times [...] Signed By: Dylan Mcneil 08/18/22 14:50 Normal [facility] Main OR Preoperative Recordo n 08-18-2022 Main OR Preoperative Record PreOp Document Type FT Summary Primary Physician: Reza Proctor DO Finalized Date/Time: 08/18/22 10:25:18 Pt. Name: POORNIMA BARKER/Sex: 1975 Female Med Rec #: [id number] Physician: Reza Proctor DO Financial #: [id number] Pt. Type: Room/Bed: [place] [address] Admit/Disch: 08/18/22 06:24:59 - Institution: Case Times [...] perioperative plan of care Finalized By: Tuyet Morle Document Signatures Signed By: Tuyet Morel 08/18/22 10:25 Normal [facility] Monitor Recordon 08-18-2022 Monitor Record [id number]#[id number] CD:127 Normal [facility] Monitor Record [id number]#1.00 CD:127 Normal [facility] Operative Reporton Operative Report Patient: CHANDA BARKER Age: 47 years Sex: Female : 1975 Associated Diagnoses: None Author: Reza Proctor DO DATE OF SURGERY: 08/18/2022 SURGEON: Reza Proctor D.O. YEAST MAKER: Erin Palacios CFA PREOPERATIVE DIAGNOSIS: Chronic extensor tendinosis, left elbow POSTOPERATIVE DIAGNOSIS: Chronic extensor tendinosis, left elbow PROCEDURE: 1. Open common extensor tendon debridement, left elbow 2. Application of short arm volar fiberglass splint ANESTHESIA: General with regional block ANESTHESIOLOGIST: David Montaño MD IMPLANTS: Arthrex 3.0 mm knotless suture tack anchor OPERATIVE INDICATIONS: Poornima is a 47-year-old rchzo-tmsy-zqrxyloa female who has had persistent pain over [...] in the common extensor in a running kprgoj-fb-gbwhq. The distal aspect of the suture was [...] was clean and elective. Reza Proctor D.O. [facility] Comment on above: Result Comment: [...] Using maximal sterile barrier technique per current [facility] guidelines including hand hygeine, Guidance (Ultrasound [...] patient tolerated the procedure as expected. Normal [facility] Comment on above: Result Comment: Elec tronically Signed By: Danyel HARVEY, David Carrillo\.br\Date and Time Signed: 08/18/22 08:24 EST Outpatient Surgery Discharge Instructionon 08-18-2022 Outpatient Surgery Discharge Instruction [place] [id number] Patient Discharge Instructions PERSON INFORMATION Name: POORNIMA [...] Information: You may receive a survey from [employer] asking you to rate your care experience. Your feedback is important and will help us understand what we do well and how we can improve the quality of care we provide to you, your loved ones and our community. It?s an honor to serve you. Thank you for choosing [facility] HERE ARE THE MEDICATION CHANGES THAT OCCURRED DURING YOUR HOSPITAL STAY [facility]ations [facility] [address] [facility], [place] [address], [phone] acetaminophen-hydrocodo ne ([place] 325 mg-5 mg oral tablet) 1-2 tab(s) Oral q4hr; as needed for pain. Refills: 0. docusate (Colace 100 mg Cap) 1 Capsules By Mouth 2 times a day as needed for constipation. Refills: 0. Medications to Continue Taking That Have Changed [facility] [address] [facility], [place] [address], [phone] START: ibuprofen (ibuprofen 600 mg Tab) 1 Tablets By Mouth every 8 hours as needed as needed for pain. with food or milk. Refills: 0. Medications to Continue with No Changes Other Medications cranberry (cranberry oral capsule) esomeprazole (Nexium 40 mg Cap-EC) 1 Capsules By Mouth every day. 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 It is therefore advised not to drive until after your first office visit following surgery. Do not drive while taking pain medication. ____ Reza Proctor, DO [facility] [address] [place] [address] Reviewed: (Inserted I (more content not included)... 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 It is therefore advised not to drive until after your first office visit following surgery. Do not drive while taking pain medication. ____ Reza Proctor, DO [facility] [address] [place] [address] Reviewed: [facility] Progress Note-Physicianon Progress Note-Physician Patient: POORNIMA BARKER Age: 47 years Sex: Female : 1975 Associated Diagnoses: None Author: David Montaño MD Postoperative Information Postoperative disposition: Postoperative disposition: To PACU. Optimetrix number: Optimetrix number [id number]. Anesthetic utilized: General. Regional: adductor canal block. Health Status Problem list: All Problems Acid reflux / SNOMED CT 839441721 / Confirmed Endometriosis / SNOMED CT 636181993 / Confirmed History of seizures / SNOMED CT 6105434270 / Confirmed Migraines / SNOMED CT 16628047 / Confirmed Pseudotumor cerebri / SNOMED CT 937697613 / Confirmed Smoker / SNOMED CT 571308966 / Confirmed Added secondary to documentation in [...] Ambulatory Surgery Unit, and To home ). [facility] Comment on above: Result Comment: [...] All Problems Acid reflux / SNOMED CT 448178937 / Confirmed Endometriosis / SNOMED CT 912476890 / Confirmed History of seizures / SNOMED CT 6731164310 / Confirmed Migraines / SNOMED CT 43629894 / Confirmed Pseudotumor cerebri / SNOMED CT 431769276 / Confirmed Smoker / SNOMED CT 331013825 / Confirmed Added secondary to documentation in Social History., Active Problems (6) Acid reflux Endometriosis History of seizures Migraines Pseudotumor cerebri Smoker Histories Past Medical History: No active or resolved past medical history items have been selected or recorded. Family History: No family history items have been selected or recorded. Procedure history: Cholecystectomy (31674697). History of total hysterectomy (5233869094). Excision of cyst on neck (6283242513). Excision of cyst bilat ovaries (9716897360). Colonoscopy (780254748). Procedure on brain ventricular shunt (5708379962). Social History Social & Psychosocial Habits Alcohol [...] 6:36 EST Height (more content not included)... [facility] Comment on above: Result Comment: Elec tronically Signed By: Danyel HARVEY, David Carrillo\.br\Date and Time Signed: 08/18/22 06:50 EST Consent for Procedure/Surger yon 08-17-2022 Consent for Procedure/Surgery [id number]#1.00C D:127 [facility] Physician Orderon 08-16-2022 Physician Order [id number]#1.0 0CD:127 Normal [facility] BUNon 08-08-2022 Urea nitrogen [Mass/Vol] 10 mg/dL Normal 5-21 [facility] Comment on above: Performed By: #### 2 437690, 7564499, 11271397, 2335138, 9768996, 3950349 ####[facility] [address] [place] [address] CBC w/Indiceson 08-08-2022 Erythrocyte distribution width (RBC) [Ratio] 14.8 % High 10.9-14.2 [facility] Comment on above: Performed By: #### 2 164832, 2886445, 54022859, 1262669, 5711844, 4842234 ####[facility] [address] [place] [address] Hematocrit (Bld) [Volume fraction] 38.8 % Normal 34.0-46.0 [facility] Comment on above: Performed By: #### 2 770980, 8123589, 25421600, 3932648, 2454216, 9166678 ####[facility] [address] [place] [address] Hemoglobin (Bld) [Mass/Vol] 12.9 g/dL Normal 12.0-16.0 [facility] Comment on above: Performed By: #### 2 388048, 6234201, 12160965, 9095323, 5413911, 2539417 ####[facility] [address] [place] [address] MCH (RBC) [Entitic mass] 29.3 pg Normal 27.0-34.0 [facility] Comment on above: Performed By: #### 2 067810, 9963620, 11822647, 2360981, 4755647, 4519167 ####[facility] [address] [place] [address] MCHC (RBC) [Mass/Vol] 33.4 g/dL Normal 31.4-36.0 [facility] Comment on above: Performed By: #### 2 332894, 8997928, 58026676, 4501554, 0050166, 5982662 ####[facility] [address] [place] [address] MCV (RBC) [Entitic vol] 87.7 fL Normal 80.0-100.0 [facility] Comment on above: Performed By: #### 2 096175, 2938478, 25937273, 6191716, 9952095, 6544155 ####[place] [address] [place] [address] Platelet mean volume (Bld) [Entitic vol] 8.3 fL Normal 6.4-10.8 [facility] Comment on above: Performed By: #### 2 642308, 0099833, 22049497, 1958078, 4179315, 3679866 ####[place] [address] [place] [address] Platelets (Bld) [#/Vol] 278.0 E9/L Normal 150.0-500.0 [facility] Comment on above: Performed By: #### 2 847927, 0740100, 15362334, 8117224, 8328422, 0920156 ####[place] [address] [place] [address] RBC (Bld) [#/Vol] 4.4 E12/L Normal 4.3-5.9 [facility] Comment on above: Performed By: #### 2 024999, 4421316, 93811910, 3983762, 3758466, 4062666 ####[place] [address] [place] [address] WBC corrected for nucl RBC Auto (Bld) [#/Vol] 10.7 E9/L Normal 4.0-11.0 [facility] Comment on above: Performed By: #### 2 017693, 4559072, 24337898, 4930324, 1369540, 5045135 ####[place] [address] [place] [address] CHEMISTRYOrdered By: SYSTEM SYSTEM on 08-08-2022 Anion gap [Moles/Vol] 12 mmol/L Normal 6 - 16 mEq/L [facility] Remisol Chloride [Moles/Vol] 108 mmol/L Normal 101 - 1 11 mmol/L [facility] Remisol CO2 [Moles/Vol] 26 mmol/L Normal 21 - 31 mmol/L [facility] Remisol Creatinine [Mass/Vol] 0.9 mg/dL Normal 0.5 - 1.3 mg/dL [facility] Remisol GFR/1.73 sq M.predicted among blacks MDRD (S/P/Bld) [Vol rate/Area] mL/min/1.73 m2 Normal >=59mL/min/ 1.73 m2 [facility] Chem S GFR/1.73 sq M.predicted among non-blacks MDRD (S/P/Bld) [Vol rate/Area] mL/min/1.73 m2 Normal >=59mL/min/ 1.73 m2 [facility] Chem S Glucose [Mass/Vol] 96 mg/dL Normal 55 - 199 mg/dL [facility] Remisol Potassium [Moles/Vol] 3.6 mmol/L Normal 3.5 - 5.3 mmol/L [facility] Remisol Sodium [Moles/Vol] 142 mmol/L Normal 135 - 145 mmol/L [facility] Remisol Urea nitrogen [Mass/Vol] 10 mg/dL Normal 5 - 21 mg/dL [facility] Remisol Consent for Treatmenton 07-26 Consent for Treatment [id number]#[id number] D:127 Normal [facility] Creatinineon 08-08-2022 Creatinine [Mass/Vol] 0.9 mg/dL Normal 0.5-1.3 [facility] Comment on above: Performed By: #### 2 734725, 4481030, 53585315, 8164653, 1169695, 4804607 ####[facility] [address] [place] [address] Glucoseon 08-08-2022 Glucose [Mass/Vol] 96 mg/dL Normal 55-199 [facility] Comment on above: Performed By: #### 2 989262, 7960592, 15260039, 3666459, 5584793, 6028447 ####[facility] [address] [place] [address] HEMATOLOGYOrdered By: Carlos Humphrey on 08-08-2022 Erythrocyte [...] HemeAutoSS Platelets (Bld) [#/Vol] 278.0 E9/L Normal 150. 0 - 500.0 E9/L FT HemeAutoSS RBC (Bld) [#/Vol] 4.4 E12/L Normal 4.3 - 5.9 E12/L FT HemeAutoSS WBC corrected for nucl RBC Auto (Bld) [#/Vol] 10.7 E9/L Normal 4.0 - 11.0 E9/L FT HemeAutoSS Lyteson 08-08-2022 Anion gap [Moles/Vol] 12 mmol/L Normal 6-16 [facility] Comment on above: Performed By: #### 2 483806, 6706681, 48551840, 8477405, 4717756, 2787735 ####[facility] [address] [place] [address] Chloride [Moles/Vol] 108 mmol/L Normal 101-111 [facility] Comment on above: Performed By: #### 2 004392, 7033332, 95839970, 6525028, 0572576, 6973090 ####[facility] [address] [place] [address] CO2 [Moles/Vol] 26 mmol/L Normal 21-31 [facility] Comment on above: Performed By: #### 2 565818, 1359509, 70008056, 0692857, 3220552, 1105427 ####[facility] [address] [place] [address] Potassium [Moles/Vol] 3.6 mmol/L Normal 3.5-5.3 [facility] Comment on above: Performed By: #### 2 316170, 1616310, 21052852, 6177116, 5514541, 6986111 ####[facility] [address] [place] [address] Sodium [Moles/Vol] 142 mmol/L Normal 135-145 [facility] Comment on above: Performed By: #### 2 003620, 3924107, 17565612, 6254268, 8302623, 4421267 ####[facility] [address] [place] [address] XR Chest 2 Viewson 3 XR Chest [...] V. Transcribed by: CANDELARIA Technologist: ALEYDA Aguilar [facility] eGFRon 08-08-2022 GFR/1.73 sq M.predicted among blacks MDRD (S/P/Bld) [Vol rate/Area] mL/min/{1.73_m2} Normal >=59 [facility] Comment on above: Order Comment: Order added by Discern Expert. Result Comment: eGFR is race adjusted. AA=. Performed By: #### 2 890073, 7178434, 82662497, 6989669, 1502943, 9308332 ####[facility] [address] [place] [address] GFR/1.73 sq M.predicted among non-blacks MDRD (S/P/Bld) [Vol rate/Area] mL/min/{1.73_m2} Normal >=59 [facility] Comment on above: Order Comment: Order added by Discern Expert. Result Comment: Bead Wrapper reginaldo kidney disease could be indicated at eGFR's of less than 60 mL/min/1.73m2. Kidney failure is indicated at less than 15 mL/min/1.73m2. Performed By: #### 2 162610, 8955548, 03549977, 9122844, 3013589, 1152163 ####[facility] [address] [place] [address] CT HEAD WO CONon 10-31-2021 CT HEAD [...] by: ROSANNE PERKINS Date: 2021-10-31 14:[address] [facility] XR CHEST 1 Von 10-21-2021 XR [...] by: ЕЛЕНА ROBERT Date: 2021-10-21 15:[address] [facility] XR KUB 1 VIEWon 10-21-2021 XR KUB 1 VIEW EXAM: XR KUB 1 VIEW, XR SKULL LESS THAN 4 VIEWS Clinical Indication: Benign intracranial hypertension Comparison: None FINDINGS: Images of the skull shows a right-sided BIOASSAYIST shunt tube, coursing along the right side of the neck and chest into the right side of the abdomen The supine and upright views of the abdomen shows a non-obstructive bowel gas pattern. There is no abnormal dilatation of bowel loops. No significant air fluid levels. There is no pneumoperitoneum. Right-sided BIOASSAYIST shunt is seen, with the tip in the area of the bladder. Cholecystectomy changes are seen. There are no clinically significant osseous abnormalities noted. IMPRESSION: Unremarkable abdominal series The shunt tube begins in the right cerebral hemisphere, and terminates in the pelvis. No obvious discontinuity or kink SL: [id number] Electronically authenticated by: ЕЛЕНА ROBERT Date: 2021-10-21 16:49 Normal [facility] Vital Signs Date Time Vital Sign Value Performing Clinician Facility 03-11-2025 09:55-0400 Body weight 86.18 kg Dinesh Bobo MD Work Phone: [facility] 03-11-2025 09:55-0400 Diastolic blood pressure 76 mm[Hg] Dinesh Bobo MD Work Phone: [facility] 03-11-2025 09:55-0400 Heart rate 70 /min Dinesh Bobo MD Work Phone: [facility] 03-11-2025 09:55-0400 SaO2% (BldA) [Mass fraction] 97 % Dinesh Bobo MD Work Phone: [facility] 03-11-2025 09:55-0400 Systolic blood pressure 108 mm[Hg] Dinesh Bobo MD Work Phone: [facility] 02-18-2025 10:43-0400 Body height 157.48 cm Dinesh Bobo MD Work Phone: [facility] 02-18-2025 10:43-0400 Body mass index (BMI) [Ratio] 34.5 kg/m2 Dinesh Bobo MD Work Phone: [facility] 02-18-2025 10:43-0400 Body temperature 96.6 [degF] Dinesh Bobo MD Work Phone: [facility] 02-18-2025 10:43-0400 Body weight 85.72 kg Dinesh Bobo MD Work Phone: [facility] 02-18-2025 10:43-0400 Diastolic blood pressure 76 mm[Hg] Dinesh Bobo MD Work Phone: [facility] 02-18-2025 10:43-0400 Heart rate 66 /min Dinesh Bobo MD Work Phone: [facility] 02-18-2025 10:43-0400 Respiratory rate 18 /min Dinesh Bobo MD Work Phone: [facility] 02-18-2025 10:43-0400 SaO2% (BldA) [Mass fraction] 96 % Dinesh Bobo MD Work Phone: [facility] 02-18-2025 10:43-0400 Systolic blood pressure 124 mm[Hg] Dinesh Bobo MD Work Phone: [facility] 01-27-2025 13:31-0400 Body height 154.94 cm Dinesh Bobo MD Work Phone: [facility] 01-27-2025 13:31-0400 Body mass index (BMI) [Ratio] 35.9 kg/m2 Dinesh Bobo MD Work Phone: [facility] 01-27-2025 13:31-0400 Body weight 86.18 kg Dinesh Bobo MD Work Phone: [facility] 01-27-2025 13:31-0400 Diastolic blood pressure 65 mm[Hg] Dinesh Bobo MD Work Phone: [facility] 01-27-2025 13:31-0400 Heart rate 85 /min Dinesh Bobo MD Work Phone: [facility] 01-27-2025 13:31-0400 Systolic blood pressure 98 mm[Hg] Dinesh Bobo MD Work Phone: [facility] 01-13-2025 13:18-0400 Body height 154.94 cm Dinesh Bobo MD Work Phone: [facility] 01-13-2025 13:18-0400 Body mass index (BMI) [Ratio] 35.3 kg/m2 Dinesh Bobo MD Work Phone: [facility] 01-13-2025 13:18-0400 Body weight 84.82 kg Dinesh Bobo MD Work Phone: [facility] 01-13-2025 13:18-0400 Diastolic blood pressure 64 mm[Hg] Dinesh Bobo MD Work Phone: [facility] 01-13-2025 13:18-0400 Heart rate 82 /min Dinesh Bobo MD Work Phone: [facility] 01-13-2025 13:18-0400 Systolic blood pressure 92 mm[Hg] Dinesh Bobo MD Work Phone: [facility] 12-19-2024 13:03-0400 Body height 154.94 cm Dinesh Bobo MD Work Phone: [facility] 12-19-2024 13:03-0400 Body mass index (BMI) [Ratio] 35.6 kg/m2 Dinesh Bobo MD Work Phone: [facility] 12-19-2024 13:03-0400 Body weight 85.72 kg Dinesh Bobo MD Work Phone: [facility] 12-19-2024 13:03-0400 Diastolic blood pressure 61 mm[Hg] Dinesh Bobo MD Work Phone: [facility] 12-19-2024 13:03-0400 Heart rate 101 /min Dinesh Bobo MD Work Phone: [facility] 12-19-2024 13:03-0400 Systolic blood pressure 91 mm[Hg] Dinesh Bobo MD Work Phone: [facility] 11-21-2024 10:57-0400 Body height 154.94 cm Dinesh Bobo MD Work Phone: [facility] 11-21-2024 10:57-0400 Body mass index (BMI) [Ratio] 36.1 kg/m2 Dinesh Bobo MD Work Phone: [facility] 11-21-2024 10:57-0400 Body weight 86.86 kg Dinesh Bobo MD Work Phone: [facility] 11-21-2024 10:57-0400 Diastolic blood pressure 68 mm[Hg] Dinesh Bobo MD Work Phone: [facility] 11-21-2024 10:57-0400 Heart rate 76 /min Dinesh Bobo MD Work Phone: [facility] 11-21-2024 10:57-0400 Respiratory rate 12 /min Dinesh Bobo MD Work Phone: [facility] 11-21-2024 10:57-0400 SaO2% (BldA) [Mass fraction] 96 % Dinesh Bobo MD Work Phone: [facility] 11-21-2024 10:57-0400 Systolic blood pressure 105 mm[Hg] Dinesh Bobo MD Work Phone: [facility] 10-14-2024 09:50-0400 Body height 154.94 cm Dinesh Bobo MD Work Phone: [facility] 10-14-2024 09:50-0400 Body mass index (BMI) [Ratio] 35.6 kg/m2 Dinesh Bobo MD Work Phone: [facility] 10-14-2024 09:50-0400 Body temperature 98.7 [degF] Dinesh Bobo MD Work Phone: [facility] 10-14-2024 09:50-0400 Body weight 85.72 kg Dinesh Bobo MD Work Phone: [facility] 10-14-2024 09:50-0400 Diastolic blood pressure 64 mm[Hg] Dinesh Bobo MD Work Phone: [facility] 10-14-2024 09:50-0400 Heart rate 102 /min Dinesh Bobo MD Work Phone: [facility] 10-14-2024 09:50-0400 SaO2% (BldA) [Mass fraction] 95 % Dinesh Bobo MD Work Phone: [facility] 10-14-2024 09:50-0400 Systolic blood pressure 95 mm[Hg] Dinesh Bobo MD Work Phone: [facility] 10-01-2024 14:27-0400 Body height 154.94 cm [facility] 10-01-2024 14:27-0400 Body mass index (BMI) [Ratio] 34.5 kg/m2 [facility] 10-01-2024 14:27-0400 Body weight 83 kg [facility] 10-01-2024 14:27-0400 Diastolic blood pressure 70 mm[Hg] [facility] 10-01-2024 14:27-0400 Heart rate 71 /min [facility] 10-01-2024 14:27-0400 Systolic blood pressure 124 mm[Hg] [facility] 07-04-2024 09:25-0500 Body height 154.94 cm [facility] 07-04-2024 09:25-0500 Body mass index (BMI) [Ratio] 34.5 kg/m2 [facility] 07-04-2024 09:25-0500 Body weight 83.03 kg [facility] 07-04-2024 09:25-0500 Diastolic blood pressure 62 mm[Hg] [facility] 07-04-2024 09:25-0500 Heart rate 78 /min [facility] 07-04-2024 09:25-0500 Systolic blood pressure 102 mm[Hg] [facility] 03-28-2024 09:08-0400 Body height 154.94 cm MD Dinesh Bobo Work Phone: [facility] 03-28-2024 09:08-0400 Body mass index (BMI) [Ratio] 34 kg/m2 MD Dinesh Bobo Work Phone: [facility] 03-28-2024 09:08-0400 Body weight 81.64 kg MD Dinesh Bobo Work Phone: [facility] 01-07-2024 13:41-0400 Diastolic blood pressure 53 mm[Hg] MD Dinesh Bobo Work Phone: [facility] 01-07-2024 13:41-0400 Heart rate 64 /min MD Dinesh Bobo Work Phone: [facility] 01-07-2024 13:41-0400 Respiratory rate 16 /min MD Dinesh Bobo Work Phone: [facility] 01-07-2024 13:41-0400 SaO2% (BldA) [Mass fraction] 100 % MD Dinesh Bobo Work Phone: [facility] 01-07-2024 13:41-0400 Systolic blood pressure 94 mm[Hg] MD Dinesh Bobo Work Phone: [facility] 01-07-2024 11:34-0400 Body height 154.94 cm MD Dinesh Bobo Work Phone: [facility] 01-07-2024 11:34-0400 Body weight 82.1 kg MD Dinesh Bobo Work Phone: [facility] 12-13-2023 13:10-0400 Body height 152.4 cm MD Dinesh Bobo Work Phone: [facility] 12-13-2023 13:10-0400 Body mass index (BMI) [Ratio] 36.3 kg/m2 MD Dinesh Bobo Work Phone: [facility] 12-13-2023 13:10-0400 Body weight 84.36 kg MD Dinesh Bobo Work Phone: [facility] 10-19-2023 11:28-0400 Diastolic blood pressure 60 mm[Hg] MD Dinesh Bobo Work Phone: [facility] 10-19-2023 11:28-0400 Heart rate 55 /min MD Dinesh Bobo Work Phone: [facility] 10-19-2023 11:28-0400 Respiratory rate 16 /min MD Dinesh Bobo Work Phone: [facility] 10-19-2023 11:28-0400 SaO2% (BldA) [Mass fraction] 96 % MD Dinesh Bobo Work Phone: [facility] 10-19-2023 11:28-0400 Systolic blood pressure 96 mm[Hg] MD Dinesh Bobo Work Phone: [facility] 10-19-2023 09:21-0400 Body height 152.4 cm MD Dinesh Bobo Work Phone: [facility] 10-19-2023 09:21-0400 Body weight 84.36 kg MD Dinesh Bobo Work Phone: [facility] 10-03-2023 10:40-0400 Body height 158.75 cm [facility] 10-03-2023 10:40-0400 Body mass index (BMI) [Ratio] 34 kg/m2 [facility] 10-03-2023 10:40-0400 Body weight 85.72 kg [facility] 09-07-2023 11:27-0400 Body height 158.75 cm [facility] 09-07-2023 11:27-0400 Body mass index (BMI) [Ratio] 34 kg/m2 [facility] 09-07-2023 11:27-0400 Body weight 85.84 kg [facility] 03-15-2024 11:27-0400 Diastolic blood pressure 70 mm[Hg] [facility] 09-07-2023 11:27-0400 Heart rate 78 /min [facility] 09-07-2023 11:27-0400 Systolic blood pressure 106 mm[Hg] [facility] 06-29-2023 09:45-0500 Body height 158.75 cm Dinesh Bobo Other [facility] 06-29-2023 09:45-0500 Body mass index (BMI) [Ratio] 34.19 kg/m2 Dinesh Bobo Other [facility] [employer] Other 06-29-2023 09:45-0500 Body weight 86.18 kg Dinesh Bobo Other [facility] 06-29-2023 09:45-0500 Diastolic blood pressure 70 mm[Hg] Dinesh Bobo Other [facility] 06-29-2023 09:45-0500 Systolic blood pressure 101 mm[Hg] Dinesh Bobo Other [facility] 08-18-2022 14:08-0500 Heart rate 65 /min [facility] [employer] [facility] 08-18-2022 14:08-0500 SaO2% (BldA) [Mass fraction] 95 % [facility] [employer] [facility] 08-18-2022 14:08-0500 Diastolic blood pressure 73 mm[Hg] [facility] [employer] [facility] 08-18-2022 14:08-0500 Mean blood pressure 85 mm[Hg] [facility] [employer] [facility] 08-18-2022 14:08-0500 Systolic blood pressure 110 mm[Hg] [facility] [employer] [facility] 08-18-2022 14:08-0500 Respiratory rate 18 /min [facility] [employer] [facility] 08-18-2022 13:04-0500 Heart rate 71 /min Reza [facility] 08-18-2022 13:04-0500 SaO2% (BldA) [Mass fraction] 92 % Reza [facility] 08-18-2022 12:10-0500 SaO2% (BldA) [Mass fraction] 94 % Reza [facility] 08-18-2022 12:06-0500 Heart rate 75 /min Reza [facility]ctor [facility] 08-18-2022 12:05-0500 Respiratory rate 18 /min Reza [facility] 08-18-2022 12:04-0500 Diastolic blood pressure 70 mm[Hg] Reza [facility] 08-18-2022 12:04-0500 Mean blood pressure 80 mm[Hg] Reza [facility] 08-18-2022 12:04-0500 Systolic blood pressure 101 mm[Hg] Reza Brown [facility] 08-18-2022 12:04-0500 Body temperature 97.52 [degF] Reza Brown [facility] 08-18-2022 11:55-0500 Body temperature 97.7 [degF] Reza Brown [facility] 08-18-2022 11:55-0500 Diastolic blood pressure 66 mm[Hg] Reza Brown [facility] 08-18-2022 11:55-0500 Mean blood pressure 74 mm[Hg] Reza Brown [facility] 08-18-2022 11:55-0500 Respiratory rate 12 /min Reza [facility] 08-18-2022 11:55-0500 Systolic blood pressure 90 mm[Hg] Reza [facility] 08-18-2022 11:45-0500 Mean blood pressure 79 mm[Hg] Reza Brown [facility] 08-18-2022 11:45-0500 Respiratory rate 16 /min Reza [facility] 08-18-2022 11:30-0500 Mean blood pressure 83 mm[Hg] Reza [facility]ctor [facility] 08-18-2022 11:30-0500 Respiratory rate 12 /min Reza [facility]ctor [facility] 08-18-2022 11:02-0500 Body temperature 97.16 [degF] Reza Proctor [facility] 08-18-2022 10:55-0500 Respiratory rate 10 /min Reza [facility] 08-18-2022 06:40-0500 Mean blood pressure 83 mm[Hg] Reza [facility]ctor [facility] 08-18-2022 06:40-0500 Blood Pressure Location Reza Proctor [facility] 08-18-2022 06:40-0500 Heart rate 88 /min Reza [facility] 08-18-2022 06:39-0500 Body temperature 98.06 [degF] Reza [facility]ctor [facility] 08-18-2022 06:38-0500 Blood Pressure Location Reza Proctor [facility] 08-16-2022 09:15-0500 Body height 158.75 cm Dinesh Bobo Other [employer] Other 08-16-2022 09:15-0500 Body mass index (BMI) [Ratio] 35.45 kg/m2 Dinesh Bobo Other [employer] Other 08-16-2022 09:15-0500 Body weight 89.36 kg Dinesh Bobo Other [employer] Other 08-16-2022 09:15-0500 Diastolic blood pressure 68 mm[Hg] Dinesh Bobo Other [employer] Other 08-16-2022 09:15-0500 SaO2% (BldA) [Mass fraction] 97 % Dinesh Bobo Other [employer] Other 08-16-2022 09:15-0500 Systolic blood pressure 108 mm[Hg] Dinesh Bobo Other [employer] Other 08-08-2022 15:39-0500 Diastolic blood pressure 77 mm[Hg] [facility] 08-08-2022 15:39-0500 Heart rate 71 /min [employer] [facility] 08-08-2022 15:39-0500 Mean blood pressure 90 mm[Hg] [facility] 08-08-2022 15:39-0500 Systolic blood pressure 117 mm[Hg] [facility]za [employer] [facility] 08-08-2022 15:39-0500 Heart rate 77 /min [employer] [facility] 08-08-2022 15:39-0500 SaO2% (BldA) [Mass fraction] 100 % [facility] 08-08-2022 15:38-0500 Diastolic blood pressure 81 mm[Hg] Reza [employer] [facility] 08-08-2022 15:38-0500 Mean blood pressure 98 mm[Hg] Reza [facility]ctor [facility] 08-08-2022 15:38-0500 Systolic blood pressure 133 mm[Hg] Reza [facility]ctor [facility] 08-08-2022 15:38-0500 Respiratory rate 16 /min Reza [facility] 11-15-2021 11:00-0400 Body height 158.75 cm Seb Jeramie Other [employer] Other 11-15-2021 11:00-0400 Body mass index (BMI) [Ratio] 33.83 kg/m2 Seb Bobo Other [employer] Other 11-15-2021 11:00-0400 Body weight 85.28 kg Seb Jeramie Other [employer] Other Encounters Encounter Date Encounter Type Care Provider Facility Start: 03-11-2025 End: 03-11-2025 ambulatory Dinesh Bobo MD Work Phone: [facility] Work Phone: Start: 03-11-2025 End: 03-11-2025 Patient encounter procedure Toan Morin DO -[facility] [place] Work Phone: Start: 03-10-2025 Non-patient / Non-visit Imelda Robles [facility] Work Phone: Start: 03-08-2025 Non-patient / Non-visit Germaine Núñez MD -[facility] Work Phone: Start: 02-18-2025 End: 02-18-2025 ambulatory Dinesh Bobo MD Work Phone: [facility] Work Phone: Start: 02-18-2025 End: 02-18-2025 Patient encounter procedure Jaylin Carrero [employer]PER[employer]OR -[facility] Work Phone: Start: 01-27-2025 End: 01-27-2025 ambulatory Dinesh Bobo MD Work Phone: [facility] Work Phone: Start: 01-27-2025 End: 01-27-2025 Patient encounter procedure Dinesh Bobo MD -[facility] Work Phone: Start: 01-13-2025 End: 01-13-2025 ambulatory Dinesh Bobo MD Work Phone: [facility] Work Phone: Start: 01-13-2025 End: 01-13-2025 Patient encounter procedure Dinesh Bobo MD -[facility] Work Phone: Start: 12-19-2024 End: 12-19-2024 ambulatory Dinesh Bobo MD Work Phone: [facility] Work Phone: Start: 12-19-2024 End: 12-19-2024 Patient encounter procedure Dinesh Bobo MD -[facility] Work Phone: Start: 11-21-2024 End: 11-21-2024 ambulatory Dinesh Bobo MD Work Phone: [facility] Work Phone: Start: 11-21-2024 End: 11-21-2024 Patient encounter procedure Dinesh Bobo MD Work Phone: [facility] Work Phone: Start: 11-07-2024 End: 11-07-2024 Patient encounter procedure Dinesh Bobo MD Work Phone: [facility]-CT Scan [facility] [place] Work Phone: Start: 11-07-2024 End: 11-07-2024 ambulatory Imelda L Ly Facility:[facility] Start: 10-14-2024 Non-patient / Non-visit Dinesh Bobo MD Work Phone: [facility] Work Phone: Start: 10-14-2024 End: 10-14-2024 ambulatory Dinesh Bobo MD Work Phone: [facility] Work Phone: Start: 10-14-2024 End: 10-14-2024 Patient encounter procedure Dinesh Bobo MD Work Phone: [facility] Work Phone: Start: 10-03-2024 End: 10-03-2024 Patient encounter procedure Dinesh Bobo MD Work Phone: [facility] [place] Work Phone: Start: 10-03-2024 End: 10-03-2024 ambulatory Dinesh Bobo MD Work Phone: [facility] Work Phone: Start: 10-01-2024 End: 10-01-2024 ambulatory [facility] Work Phone: Start: 10-01-2024 End: 10-01-2024 Patient encounter procedure [facility] Work Phone: Start: 07-26-2024 Non-patient / Non-visit [facility] Work Phone: Start: 07-25-2024 End: 07-25-[address] [facility] Start: 07-04-2024 End: 07-04-2024 Patient encounter procedure [facility] Work Phone: Start: 05-24-2024 ambulatory [facility] Start: 03-28-2024 End: 03-28-2024 ambulatory MD Dinesh Bobo Work Phone: [facility] Work Phone: Start: 03-28-2024 End: 03-28-2024 Patient encounter procedure MD Dinesh Bobo Work Phone: [facility]XRay [facility] [place] Work Phone: Start: 03-12-2024 End: 03-12-2024 Nursing evaluation of patient and report Breath Test [facility] Work Phone: [facility] Comment on above: Diarrhea, unspecifie d type (Primary Dx) Start: 01-07-2024 Non-patient / Non-visit MD Dinesh Bobo Work Phone: [facility] Gastroenterology Work Phone: Start: 01-07-2024 End: 01-07-2024 Admission to same day surgery center MD Dinesh Bobo Work Phone: [facility] Work Phone: Start: 01-07-2024 End: 01-07-2024 ambulatory MD Dinesh Bobo Work Phone: [facility] Work Phone: Start: 12-13-2023 End: 12-13-2023 Patient encounter procedure MD Dinesh Bobo Work Phone: [facility] Gastroenterology Work Phone: Start: 11-07-2023 Non-patient / Non-visit MD Dinesh Bobo Work Phone: [facility] Work Phone: Start: 11-02-2023 End: 11-02-2023 ambulatory MD Dinesh Bobo Work Phone: [facility] Work Phone: Start: 11-02-2023 End: 11-02-2023 Patient encounter procedure MD Dinesh Bobo Work Phone: [facility] [place] Work Phone: Start: 10-24-2023 Non-patient / Non-visit MD Dinesh Bobo Work Phone: [facility] Work Phone: Start: 10-22-2023 Non-patient / Non-visit MD Dinesh Bobo Work Phone: [facility] Work Phone: Start: 10-19-2023 Non-patient / Non-visit MD Dinesh Bobo Work Phone: [facility] G[facility] Work Phone: Start: 10-19-2023 End: 10-19-2023 Admission to same day surgery center MD Dinesh Bobo Work Phone: [facility] Work Phone: Start: 10-19-2023 End: 10-19-2023 ambulatory MD Dinesh Bobo Work Phone: [facility] Work Phone: Start: 10-03-2023 End: 10-03-2023 ambulatory [facility] Work Phone: Start: 10-03-2023 End: 10-03-2023 Patient encounter procedure [facility] Gastroenterology Work Phone: Start: 09-07-2023 End: 09-07-2023 ambulatory [facility] Work Phone: Start: 09-07-2023 End: 09-07-2023 Patient encounter procedure [facility] Work Phone: Start: 08-14-2023 Non-patient / Non-visit [facility] Work Phone: Start: 07-17-2023 End: 07-17-2023 ambulatory Dinesh Bobo Other [facility] [employer] Other Start: 07-17-2023 Telephone encounter [address]inesh Bobo [facility] Start: 06-29-2023 End: 06-29-2023 ambulatory Dinesh Bobo Other [employer] Other Start: 06-29-2023 Office outpatient visit [address] [facility] Start: 06-29-2023 End: 06-29-2023 Patient encounter procedure [facility] Work Phone: Start: 10-11-2022 End: 02-26-2023 ambulatory Reza Proctor Facility:[facility] Start: 10-11-2022 End: 02-25-2023 Recurring Reza Diaz [facility] Start: 08-23-2022 End: 08-23-2022 ambulatory Dinesh Bobo Other [employer] Other Start: 08-23-2022 Telephone encounter Dinesh Bobo [facility] Start: 08-21-2022 End: 08-21-2022 ambulatory Dinesh Bobo Other [employer] Other Start: 08-21-2022 Telephone encounter [address]inesh Bobo [facility] Start: 08-18-2022 End: 08-18-2022 ambulatory Reza Proctor Facility:[facility] Start: 08-18-2022 End: 08-18-2022 Admission to same day surgery carter Reza Proctor [facility] Start: 08-16-2022 End: 08-16-2022 ambulatory Dinesh Bobo Other [employer] Other Start: 08-16-2022 Office outpatient visit [address] [facility] Start: 08-14-2022 End: 08-15-[address] DINESH BOBO Facility: Start: 08-08-2022 End: 08-09-2022 ambulatory Reza Proctor Facility:[facility] Start: 08-08-2022 End: 08-08-2022 Patient encounter procedure Reza Proctor [facility] Start: 01-23-2022 End: 02-18-[address] DINESH BOBO Facility:[facility] Start: 01-12-2022 End: 01-13-[address] DINESH BOBO Facility:[facility] Start: 01-09-2022 Gynecological examination normal Dinesh Bobo Other [facility] [employer] Other Start: 11-15-2021 End: 11-15-2021 ambulatory Seb Bobo Other [facility] [employer] Other Start: 11-15-2021 Office outpatient ne w 30 minutes Seb Bobo [employer] [facility] Start: 10-31-2021 End: 11-01-[address] [...] collection please use: Cortisol PM: 2.3-11.9Performed at: [address] [id number] Director: Lloyd Wu PhD, Phone: [phone] Start: 03-28-2024 Supine abdominal X-ray MD Dinesh Bobo Work Phone: Start: 01-07-2024 Flexible fiberoptic sigmoidoscopy MD Lillian Bobo Work Phone: Start: 11-07-2023 E coli Shiga Toxin EIA MD Dinesh Bobo Work Phone: Start: 11-07-2023 Salmonella/Shigella Screen MD Dinesh ramírez Work Phone: Start: 11-02-2023 Computed tomography of abdomen and pelvis with contrast MD Dinesh Bobo Work Phone: Start: 10-19-2023 Esophagogastroduodenoscopy MD Dinesh ramírez Work Phone: Start: 08-18-2022 Debridement Reza Proctor Start: 12-24-2017 Screening mammography Dinesh Bobo Other Cholecystectomy [facility] Colonoscopy Reza [facility]ctor Excision of cyst Reza Proctor H/O: surgery Seb Bobo Other History of total hysterectomy Reza Hitesh Procedure on brain v entricular shunt Reza Proctor Plan of Treatment Date Care Activity Detail Author Start: 01-13-2025 Patient referral [facility] Work Phone: Start: 12-19-2024 Patient referral [facility] Work Phone: Start: 10-03-2024 [facility] Start: 03-28-2024 Elastase.pancreatic [Mass/mass] in Stool [facility] Start: 02-24-2024 Covid-19 Vaccine ( season) Covid-19 Vaccine () [facility] Start: 02-24-2024 Influenza vaccination Influenza Vacc ine (#1) [facility] Start: 01-07-2024 [facility] Start: 10-19-2023 [facility] Start: 09-07-2023 Patient referral [facility] Work Phone: Start: 2020 Diabetes Screening Diabetes Screenin g [facility] Start: 2020 Lipid panel Lipid Screening [facility] Start: 2020 Screening for malign ant neoplasm of colon [facility] Start: 2015 Screening for malign ant neoplasm of breast Mammogram Screening [facility] Start: 1996 Screening for malign ant neoplasm of cervix Cervical Cancer Screening [facility] Start: 1994 Hepatitis B Vaccine (1 of 3 - 19+ 3-dose series) Hepatitis B Vaccine (1 of 3 - 19+ 3-dose series) [facility] Start: 1994 Urine microalbumin profile DTaP,Tdap,Td Vaccine (1 - Tdap) [facility] Start: 1993 Anxiety Screening Anxiety Screening [facility] Start: 1993 Depression Screening Depression Scre ening [facility] Start: 1993 Hepatitis C screening Hepatitis C Sc reening [facility] Start: 1993 HIV screening HIV Screening [facility] CT Abdomen and Pelvis [facility] MG Breast - bilatera l Screening [facility] Patient Education [facility] Work Phone: Patient referral [facility] Work Phone: [facility] Payers Date Payer Category Payer Self-pay 2022 Private Health Insurance 1975 Unknown [id number] 2.16.84 [id number] 1975 Unknown [id number] 2.16.84 [id number] 1975 Unknown [id number] 2.16.84 [id number] 1975 Unknown [id number] 2.16.84 [id number] 1975 Unknown [id number] 2.16.84 [id number] 1975 Unknown [id number] 2.16.8 [id number] 1975 Unknown [id number] 2.16.8 [id number] 1975 Unknown [id number] 2.16.8 [id number] 1959 Unknown [id number] 2.16.8 [id number] Unknown [id number] Unknown [place] [id number] Unknown [id number] 2.16.8 [id number] Unknown [id number] 2.16.8 [id number] Unknown [id number] 2.16.8 [id number] Unknown [id number] 2.16.8 [id number] Social History Date Type Detail Facility Start: 03-12-2024 Sex Assigned At F [facility] Start: 08-08-2022 Tobacco smoking status Light tobacco smoker (finding) [facility] Start: 1975 Sex Assigned At Female F [facility] Start: 10-19-2023 End: 01-07-2024 Tobacco smoking status NHIS Smoker (finding) [facility] Tobacco smoking status IAIS Tobacco smoking consumption unknown [facility] Start: 03-12-2024 History of Social function [facility] National Score (1-100), lower number is lower risk 91 [facility] Start: 1975 Sex assigned at Not on file C [facility] Start: 10-01-2024 End: 11-21-2024 Sex Female (finding) [facility] Start: 01-07-2024 End: 03-11-2025 Tobacco smoking status NHIS Smokes tobacco daily (finding) [facility] Medical Equipment Procedure Code Equipment Code Equipment Origin al Text Equipment Identifier Dates ULNAR NERVE TRANSPOSITION Reza Proctor DO 08/18/22 Unknown Elbow L FDA Start: 08-18-2022 ULNAR NERVE TRANSPOSITION Reza Proctor DO 08/18/22 Unknown Elbow L FDA Start: 08-18-2022 Goals Date Patient Goal Desired Activity /State Functional Status Date Assessment Result Facility 08-08-2022 Functional Status No [facility] Clinical Notes 11-15-2021 to 01-13-2025 Note Date & Type Note Facility 01-13-2025 Hospital Discharg e instructions Ambulatory OrdersReferral to ENT Time Frame: 01/13/25, Location: None Selected [facility] Work Phone: 12-19-2024 Evaluation note Diagnosis Onset Date Resolution Class 2 obesity with body mass index (BMI) of 35.0 to 35.9 in adult acute December 19, 2024 1:01pm Headache acute December 19 1:01pm Intracranial shunt acute November 242024 1:01pm Acute effusion of both middle ears acute January 13, 2025 1:08pm Ear canal mass acute January 13, 2025 1:08pm Class 2 obesity with body mass index (BMI) of 35.0 to 35.9 in adult acute January 27, 2025 1:30pm Insomnia acute January 27 1:30pm Major depressive disorder acute January 27, 2025 1:30pm Mckenzie eye disease of both eyes acute February 18 10:38am Chronic migraine without aura or status migrainosus acute March 11, 2025 9:49am Status post ventriculo-peritoneal shunt placement acute March 11, 2025 9:49am [facility] Work Phone: 1(283) 882-843605-30-2025 Evaluation note* Diagnosis Onset Date Resolution Status [...] canal mass acute January 13, 2025 1:08pm [facility] Work Phone: 1(565) 733-612905-30-2025 Evaluation note* Diagnosis Onset Date Resolution Status [...] canal mass acute January 13, 2025 1:08pm [facility] Work Phone: 1(459) 454-876205-30-2025 Evaluation note* Diagnosis Onset Date Resolution Status [...] depressive disorder acute January 27, 2025 1:30pm [facility] Work Phone: 1(273) 381-826304-09-2025 Evaluation note* Diagnosis Onset Date Resolution Status Admit Date Irritable bowel syndrome wit h diarrhea acute October 01, 2024 1:54pm [facility] Work Phone: 1(274) 173-996004-09-2025 Evaluation note* Diagnosis Onset Date Resolution Status Admit Date Irritable bowel syndrome wit h diarrhea acute October 01, 2024 1:54pm Sinusitis, acute maxillary acute October 14, 2024 9:48am Class 2 obesity with body ma ss index (BMI) of 36.0 to 36.9 in adult acute November 21, 2024 1 0:55am [facility] Work Phone: 1(641) 755-884004-09-2025 Evaluation note* Diagnosis Onset Date Resolution Status Admit Date Irritable bowel syndrome wit h diarrhea acute October 01, 2024 1:54pm Sinusitis, acute maxillary acute October 14, 2024 9:48am Class 2 obesity with body ma ss index (BMI) of 36.0 to 36.9 in adult acute November 21, 2024 1 0:55am Headache acute December 19 1:01pm Intracranial shunt acute November 242024 1:01pm [facility] Work Phone: 1(333) 988-537701-31-2025 [facility] Reason for [...] She reports 2 events of syncope same-day [id number] as described above RESPIRATORY: Denies SOB, coughing, [...] sinus arrhythmia, RSR nelson (more content not included)...[facility]01-10-2025 Evaluation note* Diagnosis Onset Date Resolution Status Admit Date Irritable bowel syndrome wit h diarrhea acute July 04 9:19am [facility] Work Phone: 1(838) 472-534309-18-2024 History of Present illness Narrative* Shelley Gamboa APRN.PATIENT REGISTRAR - 03/12/2024 5:04 PM EDT Glucose - SIBO CPT 93717 Hydrogen Breath Test Poornima Barker 1975 March 12, 2024 Referring Physician: Imelda Jiang DO Indication: NSG TEST INDICATIONS: DIARRHEA R19.7 Weight: 183 lbs Location: [facility] Duration of Test: 2 Hours Hydrogen [...] minutes 10:30 am 12 8 3.3 1.66 YOLY BangA #6 - 90 minutes 10:45 am 12 9 3.2 1.71 YOLY BangA #7 - 105 minutes 11:00 am 10 8 3.3 1.66 Maxine Lee RMA #8 - 120 minutes 11:15 am 11 9 3.1 1.77 Maxine Lee RMJoe Guidelines Baseline < 10 ppm Hydrogen (H2) > 20 ppm over baseline Methane (CH4) > 20 ppm over baseline Final Test Results: Negative physician Signature:Shelley Gamboa APRN.CNP documented in this encounterBrec[facility] History and physical note Author Imelda Jiang [facility] October 19, 2023 9:55am Note Date/Time October 19, 2023 9:5 5am [facility] [address] [place] [address] Gastroenterology H&P Signed Patient: Poornima Barker MR#: [id number] : 1975 Acct:[id number] Age/Sex: 48 / F Adm Date: 4 Loc: Room: Type: [facility] Attending Dr: Imelda Jiang DO [...] signed by Imelda Jiang DO> 10/19/23 0955 [facility] Work Phone: 1(180) 751-144404-26-2024 Procedure [facility]04-26-2024 Procedure [facility]01-23-2024 Evaluation note* Encounter Date Diagnosis Assessment Notes Treatment Notes Treatment Clinical Notes Jun, Major depressive disorder with single episode, remission status unspecified (ICD-10 - F32.9) Jun, Insomnia, unspecified (ICD-10 - G47.00) [employer] Other 01-05-2024 Evaluation note* Encounter Date Diagnosis Assessment Notes Treatment Notes Treatment Clinical Notes Jun, Major depressive disorder with single episode, remission status unspecified (ICD-10 - F32.9) call or come in 1 month for recheck gave counseling options Jun, Insomnia, unspecified (ICD-10 - G47.00) as above [employer] Other 02-24-2023 Evaluation + Plan noteExtracted from: Title:ANES Post-operative Note Author:David Montaño MD Date:08/18/22 Plan Transfer/Discharge: Transfer/Discharge Discharge when meets criteria ( From PACU to Ambulatory Surgery Unit, and To home ). Extracted from: Title:ANES Pre-operative Note Author:Danyel HARVEY, R zora S. Date:08/18/22 Plan [place] [employer] (ASA) physical status classification: Class II. Anesthetic Preoperative Plan: Anesthesia General. Regional Interscalene block. 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 It is therefore advised notto drive until after your first office visit following surgery. Do not drive while taking pain medication. Reza Proctor, DO [facility] [address] [place] [address] Reviewed: 08/18/2022 06:11:36 Post Op Patient Instructions - FT (Custom) [facility]02-23-2023 Note [id number]:127[facility] 08-16-2022 Evaluation note* Encounter Date Diagnosis Assessment Notes Treatment Notes Treatment Clinical Notes Jul, Other non-recurrent acute nonsuppurative otitis media of both ears (ICD-10 - H65.193) Stop augmentin. Switch to zpack. Finish all antibiotic. Get OTC debrox for R ear treatment for cerumen. [employer] Other 07-22-2022 NotePROCEDURE: XR ELBOW LT MIN [...] Electronically authenticated by: ROSANNE PERKINS Date: 2022-01-13 07:40[facility]07-22-2022 NotePROCEDURE: XR ELBOW LT MIN 3 [...] Electronically authenticated by: ROSANNE PERKINS Date: 2022-01-13 07:40[facility]05-24-2022 Evaluation note* Encounter Date Diagnosis Assessment [...] migraine type (ICD-10 - G43.909) October, S/P BIOASSAYIST shunt (ICD-10 - Z98.2) [facility] [employer] Other evaluation + Plan note Future Appointments Appointment Date:08/18/2022 09:30:00 AM Scheduled Provider: Location:[facility] Appointment Type:Surgery [facility] noteNo InformationNortUniversal [facility] Other Evaluation note* Diagnosis Onset Date Resolution Status Screening mammogram for breast cancer [facility] Work Phone: Evaluation note* Diagnosis Onset Date Resolution Status Epigastric abdominal pain ac atka GERD (gastroesophageal reflux disease) acute Screening mammogram for breast cancer acute Chronic constipation acute Epigastric abdominal pain ac atka GERD (gastroesophageal reflux disease) acute Screening for colon cancer [facility] Work Phone: Evaluation note* Diagnosis Onset Date Resolution Status Diarrhea acute Epigastric abdominal pain ac atka GERD (gastroesophageal reflux disease) acute [facility] Work Phone: Evaluation note* Diagnosis Onset Date Resolution Status Diarrhea acute [facility] Work Phone: Evaluation note* Diagnosis Diarrhea, unspecified type- Primary documented in this encounter [facility] and [facility] note Author Imelda Jiang [facility] January 07, 2024 12:35pm Note Date/Time January 07, 2024 12:3 5pm [facility] [address] [place] [address] Gastroenterology H&P Signed Patient: Poornima Barker MR#: [id number] : 1975 Acct:[id number] Age/Sex: 48 / F Adm Date: 4 Loc: Room: Type: [facility] Attending Dr: Imelda Jiang DO Copies to: Imelda Jiang, DO Dinesh Bobo MD~ Date of Service: 01/07/2024 HISTORY & [...] signed by Imelda Jiang DO> 01/07/24 1235 [facility] Work Phone: Hisywtf general Narrative - Reported* Type Description Date Medical History Migrande headaches Surgical History Procedure:cyst removal;Disease: 1979 Surgical History Procedure:Tonsillectomy;Disease : 1992 Surgical History Procedure:laproscopic;Disease: 1999 Surgical History Procedure: section;Dise ase: 2004 Surgical History Procedure:gallbladder;Disease: 2005 Surgical History Procedure:Hysterectomy;Disease: 2005 Surgical History Procedure:shunt in head;Disease : 2009 Hospitalization History See [facility] Other History general Narrative - Reported* Type Description Date Medical History Migraine headaches Medical History Pseudotumor cerebri syndrome Medical History Transfusion history Surgical History Procedure:cyst removal;Disease: 1979 Surgical History Procedure:Tonsillectomy;Disease : 1992 Surgical History Procedure:laproscopic;Disease: 1999 Surgical History Procedure: section;Dise ase: 2004 Surgical History Procedure:gallbladder;Disease: 2005 Surgical History Procedure:Hysterectomy;Disease: 2005 Surgical History Procedure:shunt in head;Disease : 2009 Hospitalization History See [facility] Other Hisinim general Narrative - Reported* Type Description Date [...] Left elbow surgery 07/2022 Hospitalization History See [facility] Other Hospital course Narrative No data available for this section [facility] Discharge instructions No data available for this section [facility] instructionsAmbulatory Orders* Referral to Neurology Time Frame: 12/19/24, Location: None [facility] Work Phone: Progress note No data available for this section [facility] for visit NarrativeReferral Dinesh Bobo Pseudotumor Cerebri SyndromeNort Tempered Mind Other Reason for Referral Reason *FU 11/24 Papilled carlos and Visual Field Exams with DETAILED Interpretations and Reports Please Diagnosis 1 Pseudotumor cerebri (G93.2) Referral Organization [facility] urosurgery Referring Provider First Name Seb Referring Provider Last Name Jeramie Referring Provider Specialty Neurologica l Surgery Referred Organization [facility] Referred Provider Robi Parada Referred Address [address] [place], [place],[address] Referred Provider Specialty Ophthalmolog y Referral Priority Routine General Notes Fore, Yvonne M 07:22:14 AM >Received and fax referral today [...] Time Advance Directives No October 15 4:19pm Advance Directive Response Recorded Date/ Time Advance Directives No February 10:19am Chief Complaint and Reason for Visit Chief [...] 2024 1:54pm Sinusitis, acute maxillary October 14, 9:48am Class 2 obesity with body ma [...] 2024 1:54pm Sinusitis, acute maxillary October 14, 9:48am Class 2 obesity with body ma [...] 0pm Major depressive disorder January 27 1:30pm Chief Complaint Admit Date headache follow up December 19, 2024 1:01 pm right ear fullness January 13, 2025 1:08 pm medication concerns January 27, 2025 1:3 0pm Left eye redness February 18, 2025 10 :38am Amb Documentation March 10, 2025 10:05am Reason for Visit Admit Date Class 2 [...] 0pm Major depressive disorder January 27 1:30pm Mckenzie eye disease of both eyes January 10:38am Chronic migraine without aura or status migrainosus March 11, 2025 9:49am Status post ventriculo-peritoneal shunt placement March 11, 2025 9:49am Additional Source Comments Patient Care team informatio [...] March 28, 2024 End: March 28, 2024 Learning Design Specialist Relationship Specialty Start Date End Date Dinesh Bobo MD [address] [facility] [place] [address] PCP - General Family Medicine 03/12/24 Team Status: Inactive Member Role Status Ade Bobo MD Primary Care Provider Active Start: July 04, 2024 End: July 04, 2024 Imelda Jiang , DO Attending Provider Active St art: July [...] End: February 18, [address] LIGHT SERVICER-C Attending Provider Active Start: February 18, 2025 End: February 18, 2025 Team Status: Active Member Role Status Dates iDnesh Bobo MD Primary Care Provider Active Start: March 08, 2025 Germaine Núñez MD Attending Provider Active St art: March 08, 2025 Team Status: Active Member Role Status Dates Dinesh Bobo MD Primary Care Provider Active Start: March 09, 2025 Germaine Núñez MD Attending Provider Active St art: March 09, 2025 Team Status: Active Member Role Status Dates Dinesh Bobo MD Primary Care Provider Active Start: March 10, 2025 Imelda Robles CMA Attending Provider Active Start: March 10, 2025 Team Status: Inactive Member Role Status Dates Dinesh Bobo MD Primary Care Provider Active Start: March 11, 2025 End: March 11, 2025 Toan Camacho DO Attending Provider Active Start: March 11, 2025 End: March 11, 2025 INFORMATION SOURCE (unrecogn ized section and content) DATE CREATED AUTHOR 08/17/2022 [facility] DATE CREATED AUTHOR AUTHOR'S ORGANIZ ATION 02/25/2023 [facility] DATE CREATED AUTHOR AUTHOR'S ORGANIZ ATION 05/25/2024 [facility] DATE CREATED AUTHOR AUTHOR'S ORGANIZ ATION 07/28/2024 [facility] DATE CREATED AUTHOR AUTHOR'S ORGANIZ ATION 11/08/2024 [facility] REASON FOR VISIT (unrecogniz [...] or prosecute any alcohol or drug abuse patient.[facility] FOR RECORDS PERTAINING TO PATIENTS WHO [...] BE BASED ON THE PRIMARY CLINICAL RECORDS. [facility]. provides no warranty or guarantee of the accuracy or completeness of information in this document.
--- OUTSIDE RECORDS SUMMARY | 2025-03-12 07:18 | XMS_ITS | Clinical Summary ---
Author Organization [facility] Address [address] [place], [place] [id number] Care Team Providers Care Food Counselor Name Role Phone Birgit Baldwin MD Primary Care Provider [phone] Social History Tobacco Use Types Packs/Day Years Used Date Smoking Tobacco: Never Assessed Area Deprivation Index Answer Date Woody rded National Score (1-100), lower number is lower ri sk 91 03/12/2024 State Score (1-10), lower number is lower risk 9 03/12/2024 Data from: https://www.neighborhoodatlas.medicine.[facility].edu/. Last address used for calculation [address] [place] [address] 03/12/2024 Comments Unknown Sex and Gender Information Value Date Recorded Sex Assigned at Not on file Legal Sex Female 9:42 AM EST Gender Identity Not on file Sexual Orientation Not on file Plan of Treatment Health Maintenance Due Date Last Done Comments Anxiety Screening 1993 Depression Screening 1993 HIV Screening 1993 Hepatitis C Screening 1993 DTaP,Tdap,Td Vaccine (1 - Tdap) 1994 Hepatitis B Vaccine (1 of 3 - 19+ 3-dose series) 08/03 Cervical Cancer Screening [address] Colonography 2020 Cologuard (FIT-DNA) 2020 Colonoscopy 2020 Colorectal Cancer Screening 2020 Diabetes Screening 2020 Fecal Occult Blood 2020 Lipid Screening 2020 Sigmoidoscopy 2020 Influenza Vaccine (#1) 2025 Insurance Care Teams Food Counselor Relationship Specialty Start Date End Date Birgit Baldwin MD [address] [place] [phone] PCP - General Family Medicine 03/12/24
--- OUTSIDE RECORDS SUMMARY | 2025-03-12 07:18 | XMS_ITS | Clinical Summary ---
Author Organization [facility] Address [address] [place] [address] Care Team Providers Care Stock Preparation Supervisor Name Role Phone Birgit Baldwin MD Primary Care Provider [phone] Allergies Active Allergy Reactions Criticality Noted Date Comments Sulfanilamide Hives 12/19/2022 Medications Cranberry 425 MG capsule as directed Orally Active esomeprazole (NexIUM) [address] capsule Take 40 mg by mouth. 08/08/2022 Active ibuprofen 600 MG tablet Take 200 mg by mouth every 8 (eight) hours. 08/18/2022 Active Active Problems Problem Noted Date Diagnosed Date Lateral epicondylitis 12/19/2022 Family History Medical History Relation Name Comments Stroke Father Diabetes Maternal Grandfather Heart disease Maternal Grandfather Stroke Maternal Grandfather Cancer Maternal Grandmother Heart disease Mother No Known Problems Paternal Grandfather No Known Problems Paternal Grandmother Mitral valve prolapse Sister Relation Name Status Comments Daughter Alive Father Alive Maternal Grandfather Maternal Grandmother Mother Alive Paternal Grandfather Paternal Grandmother Sibling Alive Sister Son Alive Social History Tobacco Use Types Packs/Day Years Used Date Smoking Tobacco: Every Day Cigarettes Tobacco Cessation:Ready to Q uit: No; Counseling Given: Not Answered Alcohol Use Standard Drinks/Week Comments Yes 0 (1 standard drink = 0.6 oz pure alcohol) socially; Caffeine Intake: 1-2 cups per day Comments Unknown Sex and Gender Information Value Date Recorded Sex Assigned at Not on file Legal Sex Female 6:55 PM EDT Gender Identity Not on file Sexual Orientation Not on file Last Filed Vital Signs Vital Sign Reading Time Taken Comments Blood Pressure 118/77 02/12/2018 12:00 PM EDT Pulse - - Temperature 36.5 C (97.7 F) 12/19/2022 11:38 AM EDT Respiratory Rate - - Oxygen Saturation - - Inhaled Oxygen Concentration - - Weight 89.8 kg (198 lb) 12/19/2022 11:38 AM EDT Height 157.5 cm (5' 2 ) 12/19/2022 11:38 AM EDT Body Mass Index 36.21 12/19/2022 11:38 AM EDT Plan of Treatment Upcoming Encounters Date Type Department Care Team (Late st Contact Info) Description 03/30/2025 8:30 AM EDT Clinical Support [facility] [address] [facility] [address] [place] [phone] Odilia Leblanc, [facility] [address] [facility], [place] [address] 03/31/2025 9:40 AM EDT Office Visit [facility] [address] [facility] [address] [place] [phone] Skye Jones MD [address] [facility] [address] [place] [address] Health Maintenance Due Date Last Done Comments CT Colonography 1975 Colonoscopy 1975 Colorectal Cancer Screening 1975 FIT-DNA 1975 FIT 1975 FOBT 1975 Sigmoidoscopy 1975 Pap Smear 1996 Cervical Cancer Screening 2005 HPV/Cotest 2005 Mammogram 2015 Influenza Vaccine (#1) 2025 Insurance [facility] Care Teams Stock Preparation Supervisor Relationship Specialty Start Date End Date Birgit Baldwin MD [address] [place] [phone] PCP - General Family Medicine 01/14/25
--- OUTSIDE RECORDS SUMMARY | 2025-03-12 07:18 | XMS_ITS | Clinical Summary ---
Author Organization [facility] Address [id number] [address] [place] [address] Care Team Providers Care Activated Sludge Operator Name Role Phone Unavailable Primary Care Provider Unavailabl e Social History Tobacco Use Types Packs/Day Years Used Date Smoking Tobacco: Never Assessed Childcare Answer Date Recorded Childcare Unknown 12/03/2018 Employment Answer Date Recorded Employment Unknown 12/03/2018 Comments Unknown Sex and Gender Information Value Date Recorded Sex Assigned at Not on file Legal Sex Female 6:07 PM EDT Gender Identity Not on file Sexual Orientation Not on file Plan of Treatment Health Maintenance Due Date Last Done Comments Depression Screening 1987 Tobacco Screening 1987 Adult BMI Screening 1993 DTaP,Tdap and Td Vaccines (1 - Tdap) 1994 Pap Smear 1996 COVID-19 Vaccine (2024-2 6 season) 2025 05/27/2021, 10/13/2020, 09/15/2020 Influenza Vaccine 02/23/2025 Medical Devices Not on file
--- OUTSIDE RECORDS SUMMARY | 2025-03-12 07:18 | XMS_ITS | Encounter Summary ---
Author Organization [facility] Address [id number] [address] [place] [address] Care Team Providers Care Esol Teacher Name Role Phone Unavailable Primary Care Provider Unavailabl e Encounter Details Date Type Department Care Team (Late st Contact Info) Description 05/24/2024 Orders Only [facility] [employer] [facility] [place] [address] Transcribe, Orders Support User Pain (Primary Dx) Social History Tobacco Use Types Packs/Day Years [...] as of this encounter Plan of Treatment Not on file documented as of this encounter Results * CT brain without contrast stroke alert (05/24/2024 12:55 AM EST) us Scanning Provider External IMG CT ORDERABLES Fin al Result documented in this encounter Visit Diagnoses Diagnosis Pain- Primary Generalized pain documented in this encounter
--- OUTSIDE RECORDS SUMMARY | 2025-03-12 07:18 | XMS_ITS | Encounter Summary ---
Author Organization [facility] Address [address] [place] [address] Care Team Providers Care Press Set Up Name Role Phone Birgit Baldwin MD Primary Care Provider [phone] Birgit Baldwin MD Primary Care Provider [phone] Encounter Details Date Type Department Care Team (Late Contact Info) Description 01/11/2023 Abstract [facility] [address] [place] [address] Reza Proctor, [address] [place] [address] Social History Tobacco Use Types Packs/Day Years [...] Description 03/30/2025 8:30 AM EDT Clinical Support [facility] [address] [facility] [address] [place] [phone] Odilia Leblanc, [facility] [address] [place] [address] 03/31/2025 9:40 AM EDT Office Visit [facility] [address] [facility] [address] [place] [address] Skye Jones MD [address] [facility] [address] [place] [address] documented as of this encounter Visit Diagnoses Not on filedocumented in this encounter Care Teams Press Set Up Relationship Specialty Start Date End Date Birgit Baldwin MD PCP - General Family Medicine 12/19/22 01/13/25 Birgit Baldwin MD [address] [place] [phone] PCP - General Family Medicine 01/14/25 documented as of this encounter
--- OUTSIDE RECORDS SUMMARY | 2025-03-12 07:18 | XMS_ITS | Patient Health Record ---
Author Organization [facility] [place] Address [address] [place] [address] Support Name Relationship Address Phone Zay Barker Emergency Contact Unknown Unavailabl e Katherin Barker Guarantor Unknown [phone] Reason For Referral No Information Plan Of Treatment No Information Insurance Providers Payer Name Payer Address Payer Phone Subscriber Number Group Number Insured Name Patient Relationship to Insured Coverage Start Date Coverage End Date [employer] [address] [place] [address] [id number] Katherin Barker Self - patient is the insured 8
--- NOTE | 2025-03-12 08:59 | PC.NURSE ---
Nursing Note Cardiac Stress Test Reviewed: Medication, allergies and patient history reviewed. Stress Test: [x ] Patient tolerated stress test well. [ ] Patient unable to tolerate walking on treadmill. Switched to Lexiscan stress test. [x ] No chest pain noted per patient [ ] Chest pain that resolved prior to leaving stress lab. [ ] No dyspnea noted. [x ] Dyspnea that resolved prior to leaving stress lab. [x ] Patient left stress lab asymptomatic and hemodynamically stable. [ ] Patient taken to the Emergency Room due to non-resolving symptoms following stress test. [x ] Patient achieved target heart rate. [ ] Patient unable to achieve target heart rate. [ ] Aminophylline administered as reversal agent to Lexiscan (Regadenoson). [ ] Nitro administered. Nursing Comments:Pt had Cardio Lite test done. NO chest pain noted. Minimal SOB noted that resolved with rest. No symptoms noted when she left stress lab. Pt ambulated to cafeteria for breakfast prior to second set of images.
--- NOTE | 2025-03-13 16:33 | PM.STRESS ---
Stress Test Stress Test Allergies Allergy/AdvReac Type Severity Reaction Status Date / Time Sulfa (Sulfonamide Allergy Severe Unknown Verified 05/24/24 00:39 Antibiotics) Requesting physician: Colten Mejía Procedure: Treadmill nuclear stress test General Information: Reason for Stress Test: [Chest pain] Cardiac History and Risk Factors: [Smoking] Resting 12 - Lead Electrocardiogram: Resting twelve-lead EKG showed normal sinus rhythm, heart rate 74 bpm, RSR prime in V1, nonspecific T wave abnormalities. Resting blood pressure 100/72 mmHg Patient was exercised according to standard Vince protocol and he was able to finish 6 minutes and 4 seconds consistent with stage II achieving 7 METS and max heart rate of 148 bpm which represents 86% of age-predicted maximum heart rate and peak blood pressure of 118/76 mmHg Exercise was terminated secondary to achievement of target heart rate. The patient did not experience any chest, neck, jaw or arm discomfort throughout the test. She had minimal shortness of breath at peak exercise. Patient was monitored up to total of 6 minutes into recovery phase with heart rate back to 100 bpm and blood pressure to 98/60 mmHg EKG during exercise, at peak exercise, and during recovery phase did not show any significant T or ST changes or any arrhythmia Stress Test: Protocol: [Vince protocol] Exercise Capacity: [Normal] Blood Pressure Response: [Normal] Rhythm: [Sinus, no arrhythmia] ST - Response: [No ST changes] Patient Response: [No chest pain] Interpretation: Maximal stress test Good exercise tolerance Appropriate heart rate and blood pressure response to exercise This stress test is negative for exercise-induced ischemic symptoms, EKG changes, or arrhythmias The myocardial perfusion nuclear stress images result is reported separately Otoniel Hernandez MD, FACC
== END 2025-03-12 07:16 | disposition home or self-care (01) ==
LOC: NM 07:15
PROVIDERS: PCP Family Medicine
DX: R07.89 Other chest pain (principal); R94.31 Abnormal electrocardiogram [ECG] [EKG]
CPT/HCPCS: 78452; 93017; A9500

== ENCOUNTER 2025-03-14 23:45 | Emergency (ER) | payer OTHER, SELFPAY ==
[2025-03-14 23:52] VITALS: BP 108/71; PULSE 76; TEMP 36.6; O2SAT 97; BMI 32.9
--- OUTSIDE RECORDS SUMMARY | 2025-03-14 23:53 | XMS_ITS | CCD ---
Author Organization [facility] CliniSyoh Care Team Providers Care Water Plant Operator Name Role Phone Seb Bobo Unavailable DINESH BOBO Primary Care Physician [phone] [place], DR DINESH Franco Admitting Unavailable BOBO, [...] Referring Unavailable Reza Proctor Admitting Unavailable Reza Procotr Attending Unavailable Reza Proctor A Referring Unavailable Hitesh, Reza A Admitting Unavailable Reza Proctor A Attending Unavailable Reza Proctor A Referring Unavailable Reza Proctor Admitting Unavailable MD Dinesh Bobo Primary Care Provider DO Imelda Jiang Attending Provider [phone] MD Dinesh Bobo Primary Care Provider DO Imelda Jiang Attending Provider [phone] Dinesh Bobo MD Primary Care Provider [phone] VAN SALCEDO Attending Unavailable Dinesh Bobo MD [...] Attending Provider Dinesh Bobo MD Attending Provider [phone] Tayla Vargas CMA Attending Provider UnavailDinesh Birmingham MD Primary Care Provider Ly DOImelda Attending Provider [phone] Dinesh Bobo MD Attending Provider [phone] Dinesh Bobo MD Primary Care Provider Jaylin Carrero APRN Attending Provider Dinesh Bobo MD Primary Care Provider Dinesh Bobo MD Attending Provider [phone] Germaine Núñez MD Attending Provider Imelda Robles CMA Attending Provider Unavaila ble Toan Camacho DO Attending Provider Allergies Allergy Classification Reported Allergen(s) Allergy Type Date of Onset Reaction(s) Facility (20 sources) Sulfanilamide; Translations: [SULFANILAMIDE] Drug Allergy 12-20-19 23 [facility] (4 sources) Sulfonamides (Antibiotic); Translations: [sulfa drugs] Drug allergy Respiratory failure [facility] (1 source) Sulfonamides (Antibiotic) Drug allergy (disorder) 12-03-19 13 [facility] Repository (20 sources) cefdinir Drug Allergy 09-07-19 24 Unknown, [facility] (2 sources) Amoxicillin Drug Allergy 01-12-20 07 AMOXICILLIN [facility] [employer] Other (2 sources) Pseudoephedrine Drug Allergy Unknown [facility] [employer] Other (17 sources) sulfADIAZINE Drug Allergy 09-07-19 Comment:Sulfa [facility] (2 sources) Substance with sulfonamide structure and antibacterial mechanism of action (substance) Drug allergy 01-12-20 SULFA [facility] [employer] Other (2 sources) Allergies Reconciled Propensity to adverse reactions Unknown [facility] [employer] Other (2 sources) patient allergy list reviewed by nurse or physicia Propensity to adverse reactions 01-16-20 Comment:Done Nykaa [facility] [employer] Other (2 sources) 12 Hour Decongestant Allergy to substance 09-05-19 Hives [facility] (1 source) cefdinir Drug Allergy 10-15-19 [facility] Rep[facility] (1 source) sulfADIAZINE Drug Allergy 10-15-19 [facility] Repository Medications Current Medications Medication Drug Class(es) Dates Sig (Normalized) Sig (Original) [id number] 200 actuat albuterol 0.09 mg/actuat metered dose [...] milk, # 50 tab(s), Refills(s) 0, Pharmacy: [facility] 1155, 163, cm, 08/09/22 5:10:00 EST, [...] 12:00am October 26, 2023 10:35am polymyxin b [id number] unt/ml / trimethoprim 1 mg/ml ophthalmic solution [...] tablet (2 sources) Opioid Agonist Start: 08-18-2022 Guild 325 mg-5 mg oral tablet See Instructions, [...] 03-09-2025 Cholesterol in LDL [Mass/Vol] 94.0 mg/dL [facility] Comment on above: <100 mg/dl [id number] 0-129 mg/dl NEAR OR ABOVE [id number] mg/dl BORDERLINE [id number] mg/dl HIGH>190 mg/dl VERY HIGH Cholesterol in VLDL Calc [Ma ss/Vol]Ordered By: Stanley Levi on 03-09-2025 Cholesterol in VLDL [Mass/Vol] 42.0 mg/dL [facility] Erythrocyte distribution wid th Auto (RBC) [Ratio]Ordered By: Stanley Levi on 03-09-2025 Erythrocyte distribution width (RBC) [Ratio] 13.6 % 11.0-15.0 [facility] Globulin Calc (S) [Mass/Vol] Ordered By: Stanley Levi on 03-09-2025 Globulin (S) [Mass/Vol] 3.2 g/dL [facility] Glomerular filtration rate ( GFR) estimation in non- AmericanOrdered By: Stanley Levi on 03-09-2025 GFR/1.73 sq M.predicted among non-blacks MDRD (S/P/Bld) [Vol rate/Area] mL/min/{1.73_m2} >=60 mL/min/1.73 m 2 [facility] Hematocrit Auto (Bld) [Volum e fraction]Ordered By: Stanley Levi on 03-09-2025 Hematocrit (Bld) [Volume fraction] 33.7 % Low 36.0-48.0 [facility] Hemoglobin [Mass/volume] in BloodOrdered By: Stanley Levi on 03-09-2025 Hemoglobin (Bld) [Mass/Vol] 11.2 g/dL Low 12.0-16.0 [facility] Laboratory - Chemistry and C hemistry - challengeOrdered By: Stanley Levi on 03-09-2025 Albumin [Mass/Vol] 2.8 g/dL Low 3.4-5.[address] [facility] ALP [Catalytic activity/Vol] 64 U/L 46-116 [facility] ALT [Catalytic activity/Vol] 14 U/L 14-59 [facility] AST [Catalytic activity/Vol] 12 U/L Low 15-37 [facility] Bilirubin [Mass/Vol] 0.2 mg/dL 0.2-1.0 [facility] Calcium [Mass/Vol] 8.3 mg/dL Low 8.5-10.[address] [facility] Chloride [Moles/Vol] 108 mmol/L High 98-107 [facility] Cholesterol [Mass/Vol] 178 mg/dL <=200 [facility] Cholesterol in HDL [Mass/Vol] 42 mg/dL 40-60 [facility] Comment on above: > or =60 mg/dl - LOW CARDIOVASCULAR RISK<40 mg/dl - HIGH CARDIOVASCULAR RISK CO2 [Moles/Vol] 26.8 mmol/L 21.0-32.0 [facility] Creatinine [Mass/Vol] 0.89 mg/dL 0.55-1.02 [facility] GFR/1.73 sq M.predicted MDRD (S/P/Bld) [Vol rate/Area] mL/min/{1.73_m2} >=60 mL/min/1.73 m 2 [facility] Glucose [Mass/Vol] 95 mg/dL 74-[address] [facility] Potassium [Moles/Vol] 3.8 mmol/L 3.5-5.1 [facility] Protein [Mass/Vol] 6.0 g/dL Low 6.4-8.[address] [facility] Sodium [Moles/Vol] 144 mmol/L 136-[address] [facility] Triglyceride [Mass/Vol] 210 mg/dL High <=150 [facility] Urea nitrogen [Mass/Vol] 16.0 mg/dL 7.0-18.0 [facility] Urea nitrogen/Creatinine [Mass ratio] 18.0 mg/mg [facility] Leukocytes [#/volume] correc momo for nucleated erythrocytes in Blood by Automated counOrdered By: Stanley Levi on 03-09-2025 WBC corrected for nucl RBC Auto (Bld) [#/Vol] 9.8 10 3/uL 4.0-11.0 [facility] MCH Auto (RBC) [Entitic mass ]Ordered By: Stanley Levi on 03-09-2025 MCH (RBC) [Entitic mass] 29.2 pg 26.7-34.0 [facility] MCHC Auto (RBC) [Mass/Vol]Or dered By: Stanley Levi on 03-09-2025 MCHC (RBC) [Mass/Vol] 33.2 g/dL 29.9-35.2 [facility] MCV Auto (RBC) [Entitic vol] Ordered By: Stanley Levi on 03-09-2025 MCV (RBC) [Entitic vol] 87.8 fL 81.0-99.0 [facility] No Panel InformationOrdered By: Stanley Levi on 03-09-2025 Bedside Influenza Type A Antigen Negative [facility] Comment on above: Negative for Flu A p rotein antigen. Infection due to Flu Acannot be ruled out. Flu A antigen in the sample may bebelow the detection limit of the test. Bedside Influenza Type B Antigen Negative [facility] Comment on above: Negative for Flu B p rotein antigen. Infection due to Flu Bcannot be ruled out. Flu B antigen in the sample may bebelow the detection limit of the test. C-Reactive Protein, Quantitative <0.50 mg/dL <=0.50 [facility] Troponin I High Sensitivity <4.0 pg/mL Low 4.0-51.3 [facility] Comment on above: CUT-OFF POINTS HAVE [...] (Bld) [Entitic vol] 9.3 fL Low 9.5-13.5 [facility] Platelets Auto (Bld) [#/Vol] Ordered By: Stanley Levi on 03-09-2025 Platelets (Bld) [#/Vol] 281 10 3/uL 150-450 [facility] RBC Auto (Bld) [#/Vol]Ordere d By: Stanley Levi on 03-09-2025 RBC (Bld) [#/Vol] 3.84 10 6/uL Low 4.20-5.40 [facility] Serum or plasma albumin/glob ulin mass ratioOrdered By: Stanley Levi on 03-09-2025 Albumin/Globulin [Mass ratio] 0.9 {ratio} [facility] Serum or plasma anion gap de terminationOrdered By: Stanley Levi on 03-09-2025 Anion gap [Moles/Vol] 13.0 mmol/L [facility] Serum or plasma total choles terol/high density lipoprotein (HDL) cholesterol mass ratOrdered By: Stanley Levi on 03-09-2025 Cholesterol.total/[place] sterol in HDL [Mass ratio] 4.2 {ratio} [facility] Comment on above: 3.3 - 4.4 LOW RISK4. 4 - 7.1 AVERAGE RISK7.1 - 11.0 MODERATE RISK>11.0 HIGH RISK Basophils Auto (Bld) [#/Vol] Ordered By: Germaine Núñez on 03-08-2025 Basophils (Bld) [#/Vol] 0.1 10 3/uL 0.0-0.1 [facility] Basophils/100 WBC Auto (Bld) Ordered By: Germaine Núñez on 03-08-2025 Basophils/100 WBC (Bld) 0.7 % 0.2-2.0 [facility] Eosinophils/100 WBC Auto (Bl d)Ordered By: Germaine Núñez on 03-08-2025 Eosinophils/100 WBC (Bld) 2.2 % 0.9-7.0 [facility] Erythrocyte distribution wid th Auto (RBC) [Ratio]Ordered By: Germaine Núñez on 03-08-2025 Erythrocyte distribution width (RBC) [Ratio] 13.3 % 11.0-15.0 [facility] Fibrin D-dimer [Presence] in Platelet poor plasma by Latex agglutinationOrdered By: Germaine Núñez on 03-08-2025 Fibrin D-dimer LA Ql (PPP) 0.63 mg/L FEU Critically high <=0.59 [facility] Comment on above: RESULTS CALLED TO HANNAH BAUER RN @BY Jennifer Tolliver at 1228Increases in D-Dimer concentration observed withthromboembolic events can [...] 50 mL/min/{1.73_m2} Low >=60 mL/min/1.73 m 2 [facility] Hematocrit Auto (Bld) [Volum e fraction]Ordered By: Germaine Núñez on 03-08-2025 Hematocrit (Bld) [Volume fraction] 38.3 % 36.0-48.0 [facility] Hemoglobin [Mass/volume] in BloodOrdered By: Germaine Núñez on 03-08-2025 Hemoglobin (Bld) [Mass/Vol] 12.8 g/dL 12.0-16.0 [facility] Laboratory - Chemistry and C hemistry - challengeOrdered By: Germaine Núñez on 03-08-2025 Calcium [Mass/Vol] 8.8 mg/dL 8.5-10.[address] [facility] Chloride [Moles/Vol] 109 mmol/L High 98-107 [facility] CO2 [Moles/Vol] 21.0 mmol/L 21.0-32.0 [facility] Creatinine [Mass/Vol] 1.15 mg/dL High 0.55-1.02 [facility] GFR/1.73 sq M.predicted MDRD (S/P/Bld) [Vol rate/Area] mL/min/{1.73_m2} >=60 mL/min/1.73 m 2 [facility] Glucose [Mass/Vol] 129 mg/dL High 74-[address] [facility] Natriuretic peptide B (Bld) [Mass/Vol] 63.0 pg/mL <=900.0 [facility] Potassium [Moles/Vol] 3.7 mmol/L 3.5-5.1 [facility] Sodium [Moles/Vol] 145 mmol/L 136-[address] [facility] Urea nitrogen [Mass/Vol] 16.0 mg/dL 7.0-18.0 [facility] Urea nitrogen/Creatinine [Mass ratio] 13.9 mg/mg [facility] Laboratory - Hematology and Cell countsOrdered By: Germaine Núñez on 03-08-2025 Immature granulocytes/100 WBC (Bld) 0.5 % 0.0-0.5 [facility] Leukocytes [#/volume] correc momo for nucleated erythrocytes in Blood by Automated counOrdered By: Germaine Núñez on 03-08-2025 WBC corrected for nucl RBC Auto (Bld) [#/Vol] 13.0 10 3/uL High 4.0-11.0 [facility] Lymphocytes Auto (Bld) [#/Vo l]Ordered By: Germaine Núñez on 03-08-2025 Lymphocytes (Bld) [#/Vol] 2.8 10 3/uL 1.2-3.8 [facility] Lymphocytes/100 WBC Auto (Bl d)Ordered By: Germaine Núñez on 03-08-2025 Lymphocytes/100 WBC (Bld) 21.7 % 20.5-60.0 [facility] MCH Auto (RBC) [Entitic mass ]Ordered By: Germaine Núñez on 03-08-2025 MCH (RBC) [Entitic mass] 29.2 pg 26.7-34.0 [facility] MCHC Auto (RBC) [Mass/Vol]Or dered By: Germaine Núñez on 03-08-2025 MCHC (RBC) [Mass/Vol] 33.4 g/dL 29.9-35.2 [facility] MCV Auto (RBC) [Entitic vol] Ordered By: Germaine Núñez on 03-08-2025 MCV (RBC) [Entitic vol] 87.4 fL 81.0-99.0 [facility] Monocytes Auto (Bld) [#/Vol] Ordered By: Germaine Núñez on 03-08-2025 Monocytes (Bld) [#/Vol] 0.8 10 3/uL 0.3-0.8 [facility] Monocytes/100 WBC Auto (Bld) Ordered By: Germaine Núñez on 03-08-2025 Monocytes/100 WBC (Bld) 6.0 % 1.7-12.0 [facility] Neutrophils Auto (Bld) [#/Vo l]Ordered By: Germaine Núñez on 03-08-2025 Neutrophils (Bld) [#/Vol] 9.0 10 3/uL High 1.4-6.5 [facility] Neutrophils/100 WBC Auto (Bl d)Ordered By: Germaine Núñez on 03-08-2025 Neutrophils/100 WBC (Bld) 68.9 % 43.0-75.0 [facility] No Panel InformationOrdered By: Germaine Núñez on 03-08-2025 Eosinophils # (Auto) 0.3 10 3/uL 0.0-0.7 [facility] Immature Granulocyte # (Auto) 0.06 10 3/uL High 0.00-0.03 [facility] Troponin I High Sensitivity <4.0 pg/mL Low 4.0-51.3 [facility] Comment on above: CUT-OFF POINTS HAVE [...] volume (Bld) [Entitic vol] 9.5 fL 9.5-13.5 [facility] Platelets Auto (Bld) [#/Vol] Ordered By: Germaine Núñez on 03-08-2025 Platelets (Bld) [#/Vol] 353 10 3/uL 150-450 [facility] RBC Auto (Bld) [#/Vol]Ordere d By: Germaine Núñez on 03-08-2025 RBC (Bld) [#/Vol] 4.38 10 6/uL 4.20-5.40 [facility] Serum or plasma anion gap de terminationOrdered By: Germaine Núñez on 03-08-2025 Anion gap [Moles/Vol] 18.7 mmol/L [facility] CT enterographyon 11-07-2024 CT enterography [facility] [place] [address] CT Scan Report Signed Patient: Poornima Barker MR#: [id number] : 1975 Acct:[id number] Age/Sex: 49 / F ADM Date: 11/07/24 Loc: CT Room: Type: [facility] Attending Dr: Imelda Jiang DO Copies to: [...] unremarkable. Uterus has been removed.] Peritoneum/Retroperiton eum:The GLAZIER ARTIST shunt tubing is seen coiled within the pelvis. Trace free fluid seen within the pelvis. No free air or lymphadenopathy.[ Abd wall/Bones:No acute findings. Osseous structures demonstrate degenerative change. No sacroiliitis.[ CT/CT enterography IMPRESSION: No CT evidence of small bowel abnormality. Hepatic steatosis. Impression dictated by: Oscar Roper Jr., D.O. 11/07/2024 10:07 AM Dictation Location: [place] [address] Transcribed By: [facility] 11/07/24 1007 Dictated By: Oscar Roper Jr, DO 11/07/24 1005 Signed By: 11/07/24 1007 Normal [facility] Calprotectin [Mass/mass] in StoolOrdered By: Imelda Jiang on 10-03-2024 Calprotectin (Stl) [Mass/Mass] Calprotectin [Mass/mass] in Stool 0-120 [facility] Comment on above: Concentration Interp retation Follow-Up< 5 - 50 ug/g Normal None>50 -120 ug/g Borderline Re-evaluate in 4-6 weeks >120 ug/g Abnormal Repeat as clinically indicatedPerformed at: [facility] [address] [id number] Director: Dasha Lowery MD, Phone: [phone] Calprotectin (Stl) [Mass/Mass] 65 ug/g 0-120 [facility] Comment on above: Concentration Interp retation Follow-Up< 5 - 50 ug/g Normal None>50 -120 ug/g Borderline Re-evaluate in 4-6 weeks >120 ug/g Abnormal Repeat as clinically indicatedPerformed at: [facility] [address] [place], [place] [id number] Director: Dasha Lowery MD, Phone: [phone] Calprotectin, Fecalon 2024 Calprotectin, Fecal 65 Normal 0-120 [facility] Comment on above: Result Comment: Conc entration Interpretation Follow-Up < 5 - 50 ug/g Normal None >50 -120 ug/g Borderline Re-evaluate in 4-6 weeks >120 ug/g Abnormal Repeat as clinically indicated Performed at: [facility] [address] [place], [place] [id number] [employer] Project Manager: Dasha Lowery MD, Phone: [phone] PERFORMED BY: [facility] [address] [address] PATHOLOGIST SQUAD LEADER RODNEY QUEZADA M.D. Performed By: #### C ALPROTECT #### [facility] , Laboratory - Chemistry and C hemistry - challengeon 07-26-2024 TSH Qn 1.781 m[IU]/L 0.358-3.740 [facility] Office Visiton 07-25-2024 Follow-up visit [id number] Chanda Barker 1975 F Date Provider Department Center 07/25/2024 [id number] SALCEDO Family History Problem Relation Age of Onset Coronary artery disease Mother Stroke Father Family Status - Relation Status Age at Mother Father Level of Service:38731 [place] OFFICE/OUTPATIENT NEW MODERATE MDM 45 MINUTES Reason for Visit and Comments: Syncope [506] - Had syncopal episode back in Apr 2024. Echo was performed a few weeks ago. She did not feel chest pain, SOB, or palpitations. Dizziness [476031] Normal [facility] Pancreatic Elastase, Stoolon 03-28-2024 Pancreatic Elastase, Stool 612 Normal >200 [facility] Comment on above: Result Comment: Resu lt Units: ug Elast./g Severe Pancreatic Insufficiency: <100 Moderate Pancreatic Insufficiency: 100 - 200 Normal: >200 Performed at: [facility] [address] [id number] [employer] Manager: Dasha Lowery MD, Phone: [phone] PERFORMED BY: [place] [address] PATHOLOGIST SQUAD LEADER SHAW ANGELO M.D. Performed By: #### E LASTASE STOOL #### [facility] , XR KUBon 03-28-2024 XR KUB [facility] [place] [address] XRay Report Signed Patient: Poornima Barker MR#: [id number] : 1975 Acct:[id number] Age/Sex: 48 / F ADM Date: 03/28/24 Loc: X Room: Type: [facility] Attending Dr: Imelda Jiang DO Copies to: [...] John Love M.D.03/28/2024 11:37 AM Dictation Location: [address] By: GRANT 03/28/241136 Dictated By: John Love II, MD 03/28/241131 Signed By: 03/28/241136 Normal [facility] Huseyin 01-07-2024 L Specimen: [id number] Received: 01/07/24 Status: RACHEL Davislisset Num: [id number] Spec Type: Surgical Subm Dr: Imelda Jiang DO Tissues: A Colon Biopsy (RANDOM COLON BX R/O MICROSCO) Procedures: HE/2, Gross/Micro L4 Age/ Patient Sex Location Account Attending Physician Poornima Barker 48/F [id number] Imelda Jiang DO SPEC NUM: [id number] RECD: 01/07/24 STATUS: RACHEL POLANCO NUM: [id number] IDALIA: 01/07/[address]: Imelda Jiang DO ENTERED: 01/07/[address] [facility] [address]: SPEC TYPE: Surgical DEPT: S ORDERED: [...] cm, entirely submitted in A1. CPT Codes 50110 Specimen: [id number] Received: 01/07/24 Status: RACHEL Polanco Num: [id number] Spec Type: Surgical Subm Dr: Imelda Jiang DO Tissues: A Colon Biopsy (RANDOM COLON BX R/O MICROSCO) Procedures: HE/2, Gross/Micro L4 Patient: Poornima Barker [id number] (Continued) Signed (signature on file) Jeremiah Potts MD 01/09/24 1542 Normal [facility] Elastase.pancreatic [Mass/ma ss] in Stoolon 11-07-2023 Elastase.pancreatic (Stl) [Mass/Mass] 232 >200 [facility] Comment on above: Result Units: ug [address] st./g Severe Pancreatic Insufficiency: <100 Moderate Pancreatic Insufficiency: 100 - 200 Normal: >200Performed at: [address] [id number] Director: Dasha Lowery MD, Phone: [phone] No Panel Informationon 11-06 Clostridium difficile (PCR)(LAB) Negative NEGATIVE [facility] Miscellaneous Test Comment See comment [facility] Comment on above: Specimen Source: ST - Stool - Stool - 700.100 Stool Campylobacter Culture Res 1 See comment [facility] Comment on above: [facility], No Panel InformationOrdered By: Dinesh Bobo on 11-07-2023 E coli Shiga Toxin EIA [facility] Salmonella/Shigella Screen [facility] Nonvisit Note - OTon 023 Nonvisit Note - OT , pt cxl'd in remind system, no reason available. Normal [facility] Nonvisit Note - OTon 023 Nonvisit Note - OT pt cxl'd in remind system, no reason available. Normal [facility] Nonvisit Note - OTon 023 Nonvisit Note - OT Pt. cx, d/t an emergency. [facility] OT - Home Exercise Programon 11-08-2022 OT - Home Exercise Program [id number]#1.00 CD:127 [facility] OT - Progress Noteson 2022 OT - Progress Notes [id number]#1.00 CD:127 [facility] OT - Orderson 10-20-2022 OT - Orders [id number] [id number]#1.00 CD:127 [facility] OT - Assessmentson OT - Assessments [id number]#1.00C D:127 [facility] OT - Consentson 10-19-2022 OT - Consents [id number] 427 [id number]#1.00C D:127 [facility] OT - Home Exercise Programon 10-19-2022 OT - Home Exercise Program [id number]#1.00C D:127 [facility] Coding Summary.on 10-12-2022 Coding Summary. CD:[id number] Ww+ PGhlYWQ+VA2AKDSmA84yoTH zlT5pH0AKWOuJJadbTTZGCP gIZlTgvpJfMX5jiMXtMBFv IC8+LV0uRWWcZfnozPYtr4L 6wGH2Q39ezn6nCFnvsLG2YY UcOxVbqyvte0zxnHf3ZWlvN mluOyBt KYMfvF89BTH8bM88Xs93oOE qwVXrn3cmgJf6WlFwSCAbVZ G2rFbzIOxoq8AmBYTnF32ko HRpi8N1 PIZbsIlnrDFiAhTrmKU0nH4 jULybooxyl5dbbailCxk1he 82yCHsw4L6mEZ1E5IrxgY8E GJvbGQg GulxgDDYwV7lwzozm9klqaj bVwEtYERkZGi3XCz8ZMUtvJ uuQhWyYB44TQC6FJCihtZvP 2FsLWFs pZefRcX1y7I4Tr4UN1BMUrx wH4DFYEBPXSmazCR+PC90cj 91E7DrNgiuTqk7KAYxFSF1d CE8aR7d EBQrIEjiu7U8mMS7X4JjkwA pyh3kj5uxKOMhVKwbZ99aeD Cno6X0AQBpdNE4CHNzrEppG iBzaG93 Oyc+JMMmdWwon4RsClrzf3u hi3gnlBv2JuvcWGCzmiHxvI ynLXC3z6QzCl1wCNDkgTS6c AN1uQ9r RpFqVzR8GAxhP676LrRegWH xKrqtT74fW9HaoWU+PHRyPj p7PJKlwVodPE7uX8OsYSZsm mctbGVm eWykYA6mOFApwmlkURLlwC3 qEWMkP6h9XrHjYpV6YWrxK5 NnMWZtjeuaTv89wQ7bBlSwV mA4APzk Q6GtfnS3WBEizHEdNLurGKD 0T02fs9J3GIIsUCTePVG3hI T7wD6oeEomgcfuoGOsxXcji mVydGlj FDhsLFxrF859WXTmkVjiFfF vZGluZyBEYXRlOiAgMDQvMj AvMjAyMzwvdGQ+DSJiBCW6e WxlPSAn zMHgIByiFx5xpPkpzFmzYN0 gVFNuqcwsGBXqvJ1yJAQusO LwkIrzKX0wVYAgdgynh183C iAxMHB0 UJKhzXVaY0XwtT5iFyTkOGE dGOXyR6OyiOXhSYhcF244HB ouTsN7UQVsuvXbI2SrWVFut WduOiB0 y2Q1Ft5Bp9JnoxlgF1KdzLW rBdPgGjuvJIi6B2SxFfbdtU I+AL26QTXqYU61MWm1HSM7r WxlPSdi DUTuH5AmiT3cJrRvGOAlKEL kOyc+PHRhYmxlIHdpZHRoPS dcRTGwGbIxuLqiIJ9wIb9fH GVyLWNv cTpzoMWeMqOfu3giRIJtLGv xYV0sfAjvM1FerGI1ZWBbc8 b4Br40T77aU0QybKX+PGNvb LK3xIB6 gX7sVfBmWiU0DSksE960XyF ucPFlNrhrf2ozm2ezuGv0Nh B0UCOsuiAssJzkIFT6l6XvS j55E65d IHdpZHRoPSIxNSUiIHZhbGl rqp7vyJ5zVe9+RAQojLQ2tH A7mY8uQxJwBbG9CYqaF157W nRvcCIv Ywcph6zik1pbvYu5CnOrZCJ szoLrtEfoTMP7z8TdJj17A2 YgoJzpi9XnWyy2ej33yLEki 1D3eAF5 O8YnVSEasnklqAOdgNrqAM7 uYGYrnrqoYUSidB3iBXOsQ1 h4DpKkZnB8WIcmK5YzxaN7F GJvbGQg ECEyuRAApN7ndiluu9nuxqy lSyKaARVjROl4DBq8FKYydU dqXgXpKXA3NhL4CUW6tHFqa W9yeEwe rqpyfT0wHtd+WDY4qVWbeXU UBG7kTvpjvEA+ZFThAPM0iJ qlLQhoFXThtF4qFYMaH7u1Q iAwLjA1 EJfiC9AdrcB2ZGIhdXLaUFJ otJNOyA5psbwlw1wdzwonUo EoJIVbFXw9EGw3LEXlmQxiQ iBsZWZ0 HnS7ACU3lMXupL1zeVcbhqy krV9dKsy+BnapiEmeQLG4MA d2W8YyHkz0HEKllCxzLR9rz GFkZGlu Fj0ytYoazQeePS7kBLIatkc ct409SkYai5fuIKUsdHAzQF kjQKS5Z00ka6R8YKVnQUIfC VZ5fPV2 pY7rbVxjrrotqSUktFuegeY dkNhnWEriZYdqA735BGFirR akMpHtLTj7D4ZcAst3YKYvy ZqqBW4w rSZoVNuyQi9buJsohSczDV9 aMSGwywuab693VvGxj9xvVO ZeuJAiRZhcIMJ9O71fq0P6G CMwMDAw QTK2jXH9sE3mhCryboxphEO mdDsgdmVydGljYWwtYWxpZ2 21ACCgsFkxBcWnfTg2O9XqK ck8CQPe oUuvDJ3ifTPwVEfkOp4npNy zoNjyDG4aPZLgomovh838Yq Gow0pnJYJalIInIMcjVRW4J 48ct2Z8 WAQyMRXnOJQ4rNI6pJ7xcMc nbjogbGVmdDsgdmVydGljYW hcJTmeD035KKGemIszKaRsh GllbnQg BChdLYj1P3QjLpjurUA+PC9 7SWTsQO43oCZbjKJik3kxtQ g7XtZqCSPjLXZ2bRhvNHerq 3JkZXIt P53bvFMrk2I7SUJllGlgdEP aWsIqxWT1qN2mNGgxkoovh2 bthnawAasuj5somw36cR83K 29sIHdp ZHRoPSIzMCUiIHZhbGlnbj0 aiD5hSx9+RIVcqUM4qCM9fB 0xXMEjXjT4GGzfT752OzApb CIvPjxj m6jkt1cqnLy4DoW6QEVpnsM qvQskKMF9i9DaWx36M71xJD dpZHRoPSIyMCUiIHZhbGlnb e9ruA3y Ii8+BTOfbLI5eUM3eV1qEzK dHrM6DZviR382AbPibTMxHh ijY68uD6BuzOF+ZSQpHss2Q CBzdHls AF7tgCWbJUnyBu1kKUJ5LfT nJnFrVXulF9YcTDCjzachyo dfhKM1ETBgOCVrtF34Dm9yp DogMTBw bOZBeE3negsxo3rcmhkfRrU xWAVoOSq0VDk6MKAazTpnCh XvHEG5XrT7XBL6wXOhcE3wk Glnbjog gH6sC0MfCIIilakaOi16fY3 yPaXjMfJ8VNvlDfs+VkVJVE ywLRNTVVHDMSi0D8IoVij8L CBzdHls IF4brRJyZLzcXf4jzJwmiMn vZS2pNSIlrshvJGCwoE1rSY ZueIYqzFzoXZ0kOJExhbgwq 250OiAx UYX3NARxcRDnV3QoqJ2vPvP iHIEzVHTaI7YlkNHcPQmmB8 54BIewWgL2VLRortPiW7ZiR WFsaWdu ZdC8e6G7Qy9uCl5cLE3tDTa 7DD63PL62bKDqw2K0cFR3W4 SuDOZrttkxwmcrnGL7IGWoH DUwaW47 aPWiWYgkOz7cy4B1i766ZYB wAYEkbS42Wa7xaRzaGYCryB ERfD5mbonrd7urbpekYpBdY DAwMDt0 NXd8SMAskKngNmDcVUN9ZeP 0RYX3yBGbwV4euKnlfhdfoL 9wOyc+QCsnPZVjkvZ9B5PaJ rm8XXAi qDowKE0qcSSyAKvtZd6tvEn zfWnnEJ6kRGIxbqqyGBOifH 0vPHYwtESeoGyqPW2qMDAcz apkz640 XlFyCFG4POPxtVQmZ8IejA1 zWvFhUXGfVRSpN9UleXDhDC soK978XXsuTmF3AFOxoiVyO 2FsLWFs hYqsNpG7f6D9Lu3WNW7niNT 6G6SrJib9FOFsxAbpXB4qdK VmXTdkHo2qeRikdSdyYC0fM TBpbjtw URMwvA3kJNDzsEVejQsjBF4 wTJHfflhxz037FdBeAWW6IQ GhqAVlO1NhuF6jPhXmOBUjU QHyO0Cx zMUmXEdoL681GVwfZsT8ZXY dyaGoD8KyVMGtzQmhXzD8q6 H5Ug0FZDR6ydImvel3E7JwU jwvdHI+ IE54FMBiRG14cZAfcNIrp7t mbLk6JfJkEAWlVXY9cRwzIC wmc7FrAEFzV55sjOMtr1N6G GNvbGxh aHTkHrVdgFI0fF6zCImbckq qn7xnolaaPkhba5yaah99sL 74V75xHZelUEWmSDDrDCQkZ HZhbGln kh2prC5zEo9+YALkfJH0aBJ 6lS7pRoUvUbI3ADopB051Cf OfsXHrQsazf6lyj2jpvKh3K jIwJSIg kvHhaSsvGUN6o0KkHd73A35 sIHdpZHRoPSIyMCUiIHZhbG aekc3isJ3mNl5+YG2pz1ddq a50tD83 dHI+YYIrCPP7iFriMDyaRTL wgG4cKDksAkX3XCWqYyFnkS 30bONmCHxfGv1trJcuyReuJ M3iIXEu idewq552BxUbi4aaIMOkmUN bUTifANA8Q09oa6B6SQIdFD CjCYJ0wZZ8wT6ogKhqhsfia GVmdDsg twMcjKaeBUwxQWhwW297UJI kqQyfRiTmfGOrV1fltxPKDB 1lOjwvdGQ+AGOcXXA2eKnaD SdwYWRk gL9lDLTgD2v5RmKsNbC7PWj iA5YklmX8HJIwaVVrXFBljL XWrJ5vlvmky6xxzhyaJpSyO DAwMDt0 URn6XNSfjGsgEkLqHTR7IuZ 2TSA9xSEpgC0snDfzvgiycW 9wOyc+RklOOjwvdGQ+PHRkI UM9pXwx ZQezGLUxpI4tJBToL8a1PnH iOyF4CNkcT9RwayW2JBBinO VqXHBpnTSHvO8kqfosb2kko jogIzAw JUErETn7HKj7NZMuiYweSgG hBPC7ZpN5EBG1eTRduZ5ieJ dpezvgdU0dBsz+TVJOOjwvd GQ+PHRk MZT3xWqbXUgcUVHzoU2nFJY oX4g3QvQoZjS8XUapE2Niys V8COBwuJUnWZWscGWEyM8ry pwce4wr cugbMaMjHCWfSSu3TKx0LFH icGmqRxGaKHF5LpJ3CVJ6gI TpyV9zmTzplnundN3hKcw+U CZ3YAX4 FE04VM27R4NvDebfwKPwfLQ +PHRhYmxlIHdpZHRoPScxMD LbCnWnwYayIV1oFq7wUXPbG WNvbGxh cHNlOiBj (more content not included)... [facility] Consent for Treatmenton 09-23 Consent for Treatment [id number]#1.00C D:127 [facility] OT - [place] 10-11-2022 OT - Orders [id number]#1.00C D:127 [facility] PT - [place] 10-11-2022 PT - Orders [id number]#1.00 CD:127 [facility] Comment on above: Other Comment: ot... not pt [employer] 0 08-31-2022 [employer] [id number]#1.00C D:127 [facility] Coding Summary.on 08-30-2022 Coding Summary. CD:[id number]:[id number] Gh0 bWw+PGhlYWQ+NK3EYEVxY18 ycCZdnP8yN5CHDUbJQhfjWA EXOEjZBrOyerXvPX7gcFLxB XJu IC8+OB1mSJBkCqokmZUdi5D 1nNV0E16pqq4bHWdfaBJ6OI LtGtQjczdvh8ojfFe2PCvfO mluOyBt LPNzdU74OXT5qM79Ud43wSY roRUra6dfpGw4SvTqJQQhSF Z4cDnhLGzaq2LnBRQaP59yl TIcw7E4 WBGnbBsxxNJzJrQvkRR7lA2 lAVhdrcqow1jyeufaBtq0xi 39bHPro8I6jGA6O1CdalN8T GJvbGQg NvclaHQWqP7lzyyyb2fpwej qHeEdCRZrUFj6ABy8TPHylH khQcPuTS31EKN8KKQuibOhZ 2FsLWFs bFslJaI0c7Z1Iy3RK8QFXyc lR9DWJQANDPtdwAR+PC90cj 58V2TsHmrbLfb9BQQjBCJ4o RJ7gW7o EGMaAImde3V6fNH6S3ZsbgZ jnx4jr2byFXFbEApaG20abV Zjj2F0TCZndFM4AQUjoUqfI iBzaG93 Oyc+GHDvsTsux6HsTidkz4i db9apkPb3XppiXIOzmyWktX viHIM3a3UnWf2pHTDfdAX3y YM9jH1s JlKwSzQ5FSmmC715VsPgbIR cEhzrW44yH7XgiCA+PHRyPj t3CFHhfRlhJR3cJ6LeQMJts mctbGVm cZvfVM5jKZThbjepYIAuxN5 qKJRsU1y0CtHjUhJ2CXecC3 HiEWChttkyDe74tR3mRgUfV eZ3PRib I4UnurW5ZUZyjAOhDDooGWT 9B47us7N1WKGjZVPyNWS6aD Q9yY8vnFiawonqwDCkqDlzh mVydGlj BQqxNKqwR582FSXquNtfXvF vZGluZyBEYXRlOiAgMDMvMD gvMjAyMzwvdGQ+FEEcJHB2h WxlPSAn sNJrPQiwUz7jfHnmoWuyNE4 rNYTechahQZNdcL3rFCUobW OotYifRF4tNTVzooqer183E iAxMHB0 NNBuoTQsY0AzcN0nZgVtXFC uDVAqD0LoqSZmMPueC226LU uaTbJ0YLQlnxAvR4QrDYEaz WduOiB0 j6N5Pt2Pz6UccvlcJ4NxiFO kKgCqYpvbYEz6G9ClUcwqhD I+UG39PZYhZW49ZFd3CVC2i WxlPSdi OUIrY0VwyQ4qGyDsHZJwHEA kOyc+PHRhYmxlIHdpZHRoPS vcBOOkSaJzvGkqKD5uTb6rJ GVyLWNv aDoruPAkSrHmy8krBVIhCPv vSZ6fvTdwG7PogXG5NLRoi5 k8Ve87K64yA2KdbQS+PGNvb DO0zSQ0 iE2yDxVaGdH5RFtjC517McQ ocYOlPajrp3zlq9pafKw1Lg Y8KBZajbGirAxdGFI8g4AsP a33W27y IHdpZHRoPSIxNSUiIHZhbGl bbk9hhU0pMg0+IVGjgBS8hN R4bC6zSeQaNmV5BYwxE484M nRvcCIv Krerp2mov1kxbPc4UzMqSOA jesEpfEnaBYO6r1KsPr85R8 FsfDezj1YjGrz4um16nAFnd 9O3cCY0 I0VuGONtenrygWKslJxmXQ5 vTGFxdixdQMEuaH3tVKErD8 i5RuMcJmI5ELipJ0BwlkN7X GJvbGQg JZGjeVBLtD8oqrqip4zmtlf fCvGxTSAlXOd9SZu6YVAqbI zkRrReJGH9QrZ5KRP0eNWnr I4ypUtd xnvoyV8rGgi+TLP4cGZilAO NNF7sGbeqeZN+FLGwYRI2xP uaHLwtFKVnxR8cBUUjX9b9X iAwLjA1 BSxmT1XevmU8MFGgtODtCRG heSTGfV1zanwrl1muggpaHo OvVUPfNSk2ACr8QEPbwOavV iBsZWZ0 SoC7RIB6lPIilM6qsJmmmyn rzG6bFuq+TtglaBmfBEH6SV k7L2XjFzr2DRRiaSnaIC0fj GFkZGlu Tm4rcCbxbQuiZZ8zRLJbqvz bb983HlGwz9gbXAUoeZHlCZ stRXX7O32pj7U1IXHoHIZsO QW8tEX6 oL8sdUyrerurgBNovMbnewE tlEtcUNjcFGzhM860BRHvoN guZoIqHKq7S2VpHak4LZRhs HfiHH0d vBIwXTefWa5jsCibgWyaMV3 gWIDltuoal926BnAbe0xrKX HrwTWgMFnfATB2U65xk8U2U CMwMDAw TWY0mEX7uK8byHzhnuaahVW mdDsgdmVydGljYWwtYWxpZ2 08RLZdlXkuWeVwkSb6E9GbR on0MFZm aGibTK5ecRYrEUsuOa5ucVo snYpnGM3pCXBbxmlcp047Qd Eem9shSMRyeVDfXYkxQDG0Z 48hs2S3 NYSxQSIkKRL8tZG7dO2egEl nbjogbGVmdDsgdmVydGljYW gcTYywR061CKSbwDhlMzVvf GllbnQg TGsuHNe7V8QsAcfqpBH+PC9 2GAGfIQ19iGKhlZYeq2ndqS o8ErEtRAYrTCI5lGaeCXdez 3JkZXIt I97xqFCwy8W9SCQlxLlheQF dSfGucEH0rE6jOSwivhrpc1 xzykigSaopr4nbvu56nM52A 29sIHdp ZHRoPSIzMCUiIHZhbGlnbj0 icV3mSy7+QZNwuST5sVG9dT 3wMZYhDhJ8HJayC653HgQst CIvPjxj k0zxc0yvfQz9HtY6AYRjjkO lpDbeNIO1y7ZzBc62R57eBV dpZHRoPSIyMCUiIHZhbGlnb r8efR4e Ii8+PNDkwSP1cJF5tV0fQiI vMuL2AYoeW040HlOrnBPwGt afD62wE4TdjGJ+SVLbTdn1D CBzdHls GV3whPWdSYxjTv7oCDF8SyK cFzMpPLglY1BqNRTykyeggi yidDM1HCGqZWIawI36Tf0wt DogMTBw qYNZvI8kwqltf2olxvpdYaE mTQZlTNq4XVf0VCPbzKgwEq GwMIU9UrR6MDS0oQIfnN3yc Glnbjog cX9iY5SaUGOnyiovXd62rS9 pTtByXoK3FHpqSsp+VkVJVE fySEXSXEVSVCs9S4EeAzc7Q CBzdHls PK0ffCUdJKpfKt2azJtvxWh rHC2eNUGahlsrFVPneA0pMI UgoUGnaVvgID1xPTBlhhuie 250OiAx AVM7RCGktBEaB3EobU2mEsO vGPXbMMHjV8NwxUEcGWdfC8 47WYjcBeI2COEdhcEfE8GsM WFsaWdu LrL8k6D9Yd3cMv3vAA8rLFg 5QM53JJ85kEZic5L9iLV2S4 VvKCSuvvmigdammEQ4QDYiD DUwaW47 jKNoXZhvWq6xv8E1a059YRJ eFHKgdQ57Wc8ipVvnUQQzhE EVqC4xorara0lzbavkRyBsF DAwMDt0 IHh2OEKmsIroRwLkSYD0RqM 5WTI9uRUfeQ4nvWiboqeopN 9wOyc+FNmtTMLsjwC1Z4WwP pg3FVVs zAarHO4wbRSiCLgsVf0zuPj liLrfCV9zXTVzeyacKDYkdU 8oBLDmcJKbxXnaLY4iOXMdw upga398 PcYcBJL3JFYhyVGgW2CxqK2 hLjGrGCXsYSTmR6ZjwBCoZM rnM156YGcbVoR8WRFvgdSlR 2FsLWFs pVsyPoZ8h7N3Ql7TIQ8mgYM 3R1IvLjv4ZEAhdGilUR3bfY LxAOzkHw3vdOvocXvdVS8dF TBpbjtw UEXfoG0lGXTsoCGemOskFQ9 cAGBntcxci486XyGbAKX6LR QmfJGwP8OnpW7eZpPeBUPkP ZAeT0Dk aCUeUCobA148OPqzOhR9MXI ovkZiP0UxFFVmfEveEyR8j6 K1Rq2WeITkSUMvBG45HM36F A01M4Dl PjwvdGFibGU+PHRhYmxlIHd pZHRoPScxMDAlJyBzdHlsZT 6rUe1aXQWcFOFoyKfxuYPwN cYkb5li JHWsYFoaFJ7ohRnpS8DwuOD 1GIJuz2u0Ff80Y66bM8TlzY A+POFbhQN9zBX8rL1gKvIgV lK3DZix L233JfMttMLmTxbwh5fza4u duEj8FlNgDTPmlbQulThaQI G3p1CxUi22O41xJGtgUAYbY SIyMCUi EDXaaZhxkn0kfL7hVn0+PGN fePK3iWR8jH2vBbWuOlD5LN twT399ClZbwCCdVdagY19dC 3JvdXA+ ZPBvVni3QJXtwNlgWD2ofPE hNYqiDm0hYPD2XoZpWrNdWE jnM9UuQEYxstbkwecaqJV3F DAuMDUw wT77Wx2auBhnEu6wWAByVAO 0ROVmcFTjQ4KecA7nZdOeGJ NsZVUqW5CpzTRgSMdiW857T GxlZnQ7 QJGdfqAdT8NgJSRrkBixXxD 4b5W1Ek1WxAocgOKaMJ6tSq AuFWg9W3TsEkw2HVUosPpmR S5srXCc QXrkVr1lpOwhmQcpGY8dWEY qmwfyx862ClTuw1bjAIIoeB JvFNlsPUV6H94vp3V6RJZaN DAwMDA7 sGD4zX8frFfgnimuaPYfkWy gyaVwsHenFLoyDXhxC372FG QjbCpiLzMOJyh9J5QoQgw9F CBzdHls DQ8bxCHiUTlgYd0lfIyftXx tRZ2aANPatwsbs842YxWgn4 vdHINouDZbRMegMYD5H54hi 2K4ROGl LCTiMXA9kQB7wW9yoVgufhm gbGVmdDsgdmVydGljYWwtYW uzM486BVHfxQkbXg6EOfx5X 5TwItk9 GOWfhZupKO5swZQeUIbyLh2 lbPpegCnsCR9xOWVlfivmz2 93YmQfl9vnFJPeoIAmVEflG FG4R28m e0L4RVIwOGLqXWK9oPK5kB8 hbGlnbjogbGVmdDsgdmVydG yiCHhzVAmqA397CSNqbUtjG lBheWVy OjwvdGQ+QL39od30O5YdOcj zRku6RBDeUQU8zNL8uL5aIS PuVXihx1G2eKJ0E4GhcbZwl f1bl1us YXBz (more content not included)... [facility] Physician Orderon 08-30-2022 Physician Order [id number] [facility] [id number]#1.00C D:127 [facility] Coding Summary.on 08-21-2022 Coding Summary. CD:051371RR:[id number] Gh0 bWw+PGhlYWQ+FO5NIHCsN56 abVXtjX3TT3nPPX4HYYKODT QAVK4ESE6okLY3XWymF4Brw iAv DfuejKLmZQ07IGx8NPR8vBb zRDakgO8xwLOuC2i6WbWgTE 92hW84VHofFVRoUkS3FhHcq jsgbWFy J8krWuTlhPZkJpy+PHRhYmx lIHdpZHRoPScxMDAlJyBzdH xvFC1uPb8wASBlYVLceTgzp HNlOiBj g8edJLZeRJllOG1zbEgsS2V wzVN6MENvt6p9Ul35eIF+PH GbLKD8iSjqMVzrw491BxBql 9jzENT9 vEQhWQxuBXI4J81ka6P5TPJ bGDPkGTU6bDI7jJ4tmSsojp afL3OmdDFqCrK8TMG1qGCsu H3sbGcw kivusV5kDlb+O09FSY5JQRK OCU4AIqt7L0KrHulrnOG+PC 67XRJzID97tFQqgSPlg7xbo Hc6SfCi YTSeWOS6cRdcSLjcd6DdQTF oL60qpHRbp3Y0PEObeUqwmM CfXwMpdTH6tQ6kOJrgocivp 2hvdzsn Yjabw6iovr56vH71P12iALo xFHOiVZO0NXZoCSJedYtcie 5vhA2pGv4+FRqsj5jix7gqa Qq4SsHk ZHBvbaSptUilVZN2e2JjCi9 2F4DqzLqzr5SmUte7yh95lD Dib8E8iKW2EMijCWIgaZ3jY WxlZnQ6 NQVxKuXviD49uBSkCYspDo1 qfCwncHsrRM6nRAKhafywWF XeuW0gQRYiyNQleJmuOM8lB TBpbjtm p318MjRuXML9NKBcuLArA9S dhR0hXqXpRXTkCMCoL3EimN EgFYekR744ITtjYfK2WLUhg hJhU5Ts IMKqpBaeDjG8u9Y2Yp3Mk5P dsyxnYDQ7JLswGZTaEdS9Ee WlWpB2U5EjJnz5YNZrfWjhA D2nO5Kl WGVihbnfdxzpnVT9PDNiUJB qoW96wSAlGIhuBd4op8H8y1 70SIQsZTXpkE96Vu1zoUkoQ TBwdCBU jF2taymga9mflyfpHgWqWGB yXHy3MWm4BHWdlGvpGbKxFP D3PjO6SZS9wKRfpX0btLuzg xhpnZ7e Oyc+D12inP0cYVR0IRF1hra eSRDvdgYiEE01NT16G5FrFx wvdGFibGU+PGRpdiBzdHlsZ U0kNlJg l4kob8EyXUpiT1InEFBlVOs cHlu2FBUcQEP6dSY1jK8vQA RmFPquq9F9hZL9C3DpmrJax g8nt7bn MOFzVVkdE53fvSMet9E9DZS tiVZ7OEXdfJzdYrSkmG20Yn c+QONanAhin7FxTsarb2dnc 0bgeMi7 GhUkGFQihwJycGsqIXL9b5W vAg46F83hIXrxMYCxRRHeIO XfJCSvcPbdio5pnU7jVz7+P GNvbCB3 qIH0bN9nRCFkNeV9PGoyZ73 6OzNccZZvRgdme2mbd0xdgR h8MrBgJAIkcaWikYciJDA1f 2IdQr78 X70sDNikEYKiTFKfRRZpIWK miXrdja5avH8eUw5+PC9jb2 odac49qC19dGI+CURnAKZ1v WxlPSdw TNTfqF3jDVtzUiN7MEQeOtW wcE80sXCiOKtdDw2vjCidbC rsME6fKCEnyyvfv078DhZwa 2xkIDEw vMWhWHmxPFA6P94zb9L3ZXA qGERiLTH5cEW5uE3ijNixsw ogbGVmdDsgdmVydGljYWwtY AhgE886 IHRvcDsnPlBhdGllbnQgTmF vVJx2I9YqQaq1LFHzoMfzFD 5djLLsRNwnEh5peMmolZzfB K3lJJDe mabfq108TjVll1utRBAlmYR oQDjeDJG8S03gk5I3ICVxRI BgWLC1gWJ9gW2acFvotpwdl GVmdDsg isBghUscEYzuWHzvW559YIL fxOfmJyYmvuZyCYPoxWW5JF 17UE16vKNjc1P9zPY0J7YrA GRpbmct qikfdRX7DFKrGYAxsY79Nu5 dtXrcWn6vRODjRNA7FJIiqY SzX3IsjO7wHnXwUNBmYKAxN 3RleHQt EKtkH701IIiaTcF0ZMQnqdB mT9FlQQXfxOmtQfV9o6Z7Bm 4DW9A9GZ03QV36nKGgq6C2r YO5J7Jz CMGtzscyayamdPW5BGFrAQS mtN42Sl3sgZliKo4qRDAyLR F4NOFhaSVrC6FppC9zUeXlN DAwMDAw O0BnwPPhRXtzD617HBwsAmF 6YEHefvUkU1XxCWXatOtoVb N9n0X6Dd3RBTr1QE90PU48i ISzd2Q5 fXX6L1CcNMZzsylenagaoZK 9DIYtEQNfoD32Zx4vkSifIm 1eZKKtEAS6XWTugJHdE5Jnz A5sXgMx OSZkYWRjU7UwzLHyQFcdP63 2QRpkEzD0TGEnglJbI3CyRW CktKjxYeK3x0R7Mr0SFEEdD U19MUS0 zBM2IR79GR15W1FjGforeKY ibGU+PHRhYmxlIHdpZHRoPS quSZCeUkHauKvjFE5iFk0tN GVyLWNv tBtgfGSmEuVcj1qwMBMzDBp bRJ0xvXusQ8QoxDR8NPJfh2 w2Iw88J68pQ0XiqEE+PGNvb MR4bMS2 qF9qWmReGuH9UXupN602YmR rlUVqQiyxk3fgp5irwLv9Vd R9VJEaoeJciQzwQZF9d7JbX k09H91p IHdpZHRoPSIxNSUiIHZhbGl nns2rkR7sZm7+GEVotLD9hL Q5vD3yQvPqSoU2VBwbW713Y nRvcCIv Rkqau3msg7pwaOe3YrNmQFW mkkMyjUjuNOF5s2CnLx94B3 TdnOxtq5SaZbd7nh54iWKqm 8Z6bNL9 C7KaRCCztraguGWyyUjvUF2 uXBMngpjyTGJhxV4qDCGbP6 z8RkKjFqO7FGskV4OmtrS0V DEwcHQg OQmzNBG3F54mg3P0VSDaEMS lUUC0kQD5yM5muLxnqtffxX VmdDsgdmVydGljYWwtYWxpZ 246IHRv gAmbMTDsxW9lXTXfyVYnlHg vTO1eALIitjjgCjEWSDPANV VIEskDDRQDPL59JN20pOBlo 9N0nPB8 Q1MnVRJloumytxbltQK6TTS eUFXtiR85iILpQWqwPg9vt1 W7d059CFTdJXGkuQ72Wk2vy DogMTBw ySZBkH6qojdbk9yjydvqQxG xGKVmXVw8VFz9BANvjKgxWp ZaCQL5JtH1IAY7zNYifQ9hr Glnbjog gX1hFxi+PIWbOAdsMBd3Sxt vdGQ+MVTyUSN2hLdsXNrzFG ZqpA8lAJZiZ8f8MmRcOlI8Q MqdY4Mb QMTikwjoCn05kS3tIxDkGkN 4YMcyZ8DhncH5YNGitEBfVS faAYH4D70vv9G3DRLwVSShU VT2tGV5 zH8hwCptllomxXVuhDryvgS vgRdyWLlgCWcrO232ACTqmR drLoK4CJipOXYkCL30NP99m ZLgv8Y1 iSS4N6ToNMAhksdmvssqiQL 8UJYgWZFtzH91iLGpZWlpUv 3fv9B9a194DDIoWINojT20C m6vpOks GQOlkBVFbR7oxlfns1rxopw dMoOmPKFpZHs0CIq2YIRxsF kyGkQuHEF2ZzW8KNW3yWPkc P7umDdv kettzJ1dCbm+RmVtYWxlPC9 9WI03eERyu0V8iAT5T4YcTR YxjuowlzcuwCH4CNBjEGLph S26nICi FIfrVs1ao3S5y880FODwGQQ xcB74Yu5suEqtCWTdoAYXuE 6pudfav0xpdggkWrBlFLMsW Lu3QNk1 VMNlxWzlCyCbZKU9TzP0IGL 0nOTovG7alYkncoibkG2rTg c+KI1hbUiixH0lvP5YHJ6oL ERheSBT yAZlDZD4LH92OW08P1YnFkv vdGFibGU+PHRhYmxlIHdpZH FuFZvqSCEuRoYbfHzrRO7bM e2yIHZs TKEjaIxzbUFgDiWfc7reITT sMAchLK5vuNvcW6YjsBH8SB Mhf7m1He76K86wY9GqoMX+P GNvbCB3 cSQ7tT2rQeAhHfM3EAfjC32 2AyQlzVOkHffhe5xkp4lwuW o8DfIwSGWuunGnzWeyZEB5p 5EmQn75 J60bHDamYRAqEIKqRPClAKO ekBuxoz9ydX5rXa8+PGNvbC D8wBS8rY1zBbEtUdK0MObwQ 249InRv gEDfXzlpG74xE4FcmAC+PHR jStb3ELNysTdqYC5djRYzCG qnPk0lLXX2GeLfBxUvHYzgG 3BhZGRp asmlpxqbdES6DARoNZUthW1 1Ww8vfUmnFa9rXAWyFES6RJ WmxACpR6NslH9wExGnUFZgQ AAsO7Ep fNEtIPyzW111BBwqNdF0PKE kzlVmU9GyZVAziTphBgK3o1 Q0Pw0HhFxboHAzVT6mNcIiL Pm0X3In Tcd4NMXtzXfaKL6ntWBmVWj iYy9etYyyeUxlPP5tIYQyqk pne791UvYfr4anVJZcmBMmZ GltZXM7 C02qp0R6GMXuWKGaNDP1pRH 8nU8etBmsjxpnaRBggFmtvr VmkGggLVazGFbeE547TBAyd DsnPkZJ Ivm6S5MsRrp3MSMfiHzxFM5 vvFTkWSfuAy0hzSlljCqaCP 6wOJUbxeheg189LtGsq0lkF DEwcHQg FDwsDOP4C97ne6P0CONkACO gKSS4dPG2sK0dvSkmjvobmN VmdDsgdmVydGljYWwtYWxpZ 246IHRv sXyvTi1JLjn1H8WgRze1GWA jwGvcDW2laYDiVBfoEh4nbM dskZnzII0qIVRqbshoc742O qPgd9ii IKIkjWHmKGunNEX2O22gd5I 5RWEpQDXxARF0lWK1pH0jlH lnbjogbGVmdDsgdmVydGljY WwtYWxp D919XXHloUytJbVglSVsGoi vdGQ+TY07ij84K8GpGrqpHc k0NNZwWUD9oFA4gJ7cBXGiP Eyde4O8 bGU9 (more content not included)... Normal [facility] Consent for Anesthesiaon Consent for Anesthesia [id number]#1.00 CD:127 Normal [facility] Discharge Instructionson Discharge Instructions [id number]#1.00 CD:127 Normal [facility] IntraOperative Documentson 0 08-21-2022 IntraOperative Documents [id number]#1.00 CD:127 [facility] IntraOperative Documents [id number]#1.00 CD:127 Normal [facility] Main OR Intraoperative Recor don 08-21-2022 Main OR Intraoperative Record IntraOp Document Type FT Summary Primary Physician: Reza Proctor DO Finalized Date/Time: 08/21/22 12:38:52 Pt. Name: POORNIMA BARKER/Sex: 1975 Female Med Rec #: [id number] Physician: Reza Proctor DO Financial #: [id number] Pt. 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/SA Record Time In 08/18/22 09:53:00 08/18/22 09:53:00 08/18/22 09:53:00 Time Out 08/18/22 11:01:00 08/18/22 11:01:00 08/18/22 11:01:00 Procedure ULNAR NERVE ULNAR NERVE ULNAR NERVE TRANSPOSITION(Left) TRANSPOSITION(Left) TRANSPOSITION(Left) Comments Last Modified By: Tuyet Morel Kelsie E Sayler, Kelsie E 08/18/22 11:05:46 08/18/22 11:05:46 08/18/22 11:05:46 Entry 4 Entry 5 Case Attendee Tuyet Morel Jessica D Role Performed Nurse Infection Control - Primary Scrub - Primary Time In [...] and tissue Entry 1 Skin Integrity Intact, Institute, Warm, and Skin Abnormality No D (more content not included)... Normal [facility] Preoperative Documentson Preoperative Documents [id number]#1.00 CD:127 Normal [facility] Consent for Treatmenton 07-27 Consent for Treatment [id number]#1.00C D:127 Normal [facility] H&P Updateon 08-18-2022 H&P Update [id number]#1.00C D:127 Normal [facility] Inpatient Patient Summaryon 08-18-2022 Inpatient Patient Summary [address] [address] [facility] Clinical Discharge Instructions PERSON INFORMATION Name: POORNIMA BARKER PHYSICIANS Admitting Physician: Reza Proctor DO Attending Physician: Reza Proctor DO PCP: DINESH BOBO MD Discharge Diagnosis: Comment: PATIENT EDUCATION INFORMATION Instructions: Ric Proctor - Upper Extremity Fracture Surgery (Custom); Post Op Patient Instructions - FT (Custom) Medication Leaflets: Follow up: MEDICATION LIST [facility] [address], [place] [id number], [phone] acetaminophen-hydrocodo ne (Guild 325 mg-5 mg oral tablet) 1-2 tab(s) Oral q4hr; as needed for pain. Refills: 0. docusate (Colace 100 mg Cap) 1 Capsules By Mouth 2 times a day as needed for constipation. Refills: 0. Medications to Continue Taking That Have Changed [facility] [address], [place] [id number], [phone] START: ibuprofen (ibuprofen 600 mg Tab) 1 Tablets By Mouth every 8 hours as needed as needed for pain. with food or milk. Refills: 0. Medications to Continue with No Changes Other Medications cranberry (cranberry oral capsule) esomeprazole (Nexium 40 mg Cap-EC) 1 Capsules By Mouth every day. Comment: Normal [facility] Main OR PACU I Recordon 07-27 Main OR PACU I Record PACU Phase I Docum ent Type FT Summary Primary Physician: Reza Proctor DO Finalized Date/Time: 08/18/22 13:17:16 Pt. Name: POORNIMA BARKER /Sex: 1975 Female Med Rec #: [id number] Physician: Reza Proctor DO Financial #: [id number] Pt. Type: A Room/Bed: [facility]/ Admit/Disch: 08/18/22 06:24:59 - Institution: Case Times [...] By: Luz Frederick RN 08/18/22 13:17 Normal [facility] Main OR PACU II Recordon Main OR PACU II Record PACU Phase II Doc ument Type FT Summary Primary Physician: Reza Proctor DO Finalized Date/Time: 08/18/22 14:50:45 Pt. Name: POORNIMA BARKER/Sex: 1975 Female Med Rec #: [id number] Physician: Reza Proctor DO Financial #: [id number] Pt. Type: A Room/Bed: [place] [address] Admit/Disch: 08/18/22 06:24:59 - Institution: Case Times [...] Signed By: Dylan Mcneil 08/18/22 14:50 Normal [facility] Main OR Preoperative Recordo n 08-18-2022 Main OR Preoperative Record PreOp Document Type FT Summary Primary Physician: Reza Proctor DO Finalized Date/Time: 08/18/22 10:25:18 Pt. Name: POORNIMA BARKER/Sex: 1975 Female Med Rec #: [id number] Physician: Reza Proctor DO Financial #: [id number] Pt. Type: Room/Bed: [place] [address] Admit/Disch: 08/18/22 06:24:59 - Institution: Case Times [...] Signed By: Tuyet Morel 08/18/22 10:25 Normal [facility] Monitor Recordon 08-18-2022 Monitor Record [id number]#1.00 CD:127 Normal [facility] Monitor Record [id number]#1.00 CD:127 Normal [facility] Operative Reporton Operative Report Patient: CHANDA BARKER Age: 47 years Sex: Female : 1975 Associated Diagnoses: None Author: Reza Proctor DO DATE OF SURGERY: 08/18/2022 SURGEON: Reza Proctor D.O. CONSUMER MARKETING SPECIALIST: Erin Palacios CFA PREOPERATIVE DIAGNOSIS: Chronic extensor tendinosis, left elbow POSTOPERATIVE DIAGNOSIS: Chronic extensor tendinosis, left elbow PROCEDURE: 1. Open common extensor tendon debridement, left elbow 2. Application of short arm volar fiberglass splint ANESTHESIA: General with regional block ANESTHESIOLOGIST: David Montaño MD IMPLANTS: Arthrex 3.0 mm knotless suture tack anchor OPERATIVE INDICATIONS: Poornima is a 47-year-old hfjkq-jdgd-hgjlkqug female who has had persistent pain over [...] in the common extensor in a running wgvkvn-br-uyknr. The distal aspect of the suture was [...] was clean and elective. Reza Proctor D.O. [facility] Comment on above: Result Comment: Elec [...] Using maximal sterile barrier technique per current [facility] guidelines including hand hygeine, Guidance (Ultrasound used [...] patient tolerated the procedure as expected. Normal [facility] Comment on above: Result Comment: Elec tronically Signed By: Danyel HARVEY, David Carrillo\.br\Date and Time Signed: 08/18/22 08:24 EST Outpatient Surgery Discharge Instructionon 08-18-2022 Outpatient Surgery Discharge Instruction [place] [id number] Patient Discharge Instructions PERSON INFORMATION Name: POORNIMA [...] Information: You may receive a survey from [facility] asking you to rate your care experience. Your feedback is important and will help us understand what we do well and how we can improve the quality of care we provide to you, your loved ones and our community. It?s an honor to serve you. Thank you for choosing [facility] HERE ARE THE MEDICATION CHANGES THAT OCCURRED DURING YOUR HOSPITAL STAY [facility] [address] [facility], [place] [id number], [phone] acetaminophen-hydrocodo ne (Guild 325 mg-5 mg oral tablet) 1-2 tab(s) Oral q4hr; as needed for pain. Refills: 0. docusate (Colace 100 mg Cap) 1 Capsules By Mouth 2 times a day as needed for constipation. Refills: 0. Medications to Continue Taking That Have Changed [facility] [address] [facility], [place] [id number], [phone] START: ibuprofen (ibuprofen 600 mg Tab) 1 Tablets By Mouth every 8 hours as needed as needed for pain. with food or milk. Refills: 0. Medications to Continue with No Changes Other Medications cranberry (cranberry oral capsule) esomeprazole (Nexium 40 mg Cap-EC) 1 Capsules By Mouth every day. PATIENT EDUCATION INFORMATION Instructions: [place], [place] [facility] UPPER EXTREMITY SURGERY Home [...] too soon, you are considered an impaired drive away driver, and this could be a problem. It is therefore advised not to drive until after your first office visit following surgery. Do not drive while taking pain medication. ____ Reza Proctor, DO [facility] [address] [place] [address] Reviewed: (Inserted I (more content not included)... Normal [facility] Patient Education - Texton 0 08-18-2022 Patient Education - Text [place], [place] [facility] UPPER EXTREMITY SURGERY Home [...] too soon, you are considered an impaired drive away driver, and this could be a problem. It is therefore advised not to drive until after your first office visit following surgery. Do not drive while taking pain medication. ____ Reza Proctor, DO [facility] [address] [place] [address] Reviewed: [facility] Progress Note-Physicianon Progress Note-Physician Patient: POORNIMA BARKER Age: 47 years Sex: Female : 1975 Associated Diagnoses: None Author: David Montaño MD Postoperative Information Postoperative disposition: Postoperative disposition: To PACU. Optimetrix number: Optimetrix number [id number]. Anesthetic utilized: General. Regional: adductor canal block. Health Status Problem list: All Problems Acid reflux / SNOMED CT 755441690 / Confirmed Endometriosis / SNOMED CT 685293219 / Confirmed History of seizures / SNOMED CT 2727185016 / Confirmed Migraines / SNOMED CT 97454062 / Confirmed Pseudotumor cerebri / SNOMED CT 591740459 / Confirmed Smoker / SNOMED CT 167454774 / Confirmed Added secondary to documentation in [...] Ambulatory Surgery Unit, and To home ). [facility] Comment on above: Result Comment: Elec [...] All Problems Acid reflux / SNOMED CT 725389132 / Confirmed Endometriosis / SNOMED CT 957903470 / Confirmed History of seizures / SNOMED CT 8417631948 / Confirmed Migraines / SNOMED CT 93935240 / Confirmed Pseudotumor cerebri / SNOMED CT 657761700 / Confirmed Smoker / SNOMED CT 691031526 / Confirmed Added secondary to documentation in Social History., Active Problems (6) Acid reflux Endometriosis History of seizures Migraines Pseudotumor cerebri Smoker Histories Past Medical History: No active or resolved past medical history items have been selected or recorded. Family History: No family history items have been selected or recorded. Procedure history: Cholecystectomy (28745929). History of total hysterectomy (8880341014). Excision of cyst on neck (3563628731). Excision of cyst bilat ovaries (0963025232). Colonoscopy (040448880). Procedure on brain ventricular shunt (1768298252). Social History Social & Psychosocial Habits Alcohol [...] 6:36 EST Height (more content not included)... [facility] Comment on above: Result Comment: Elec tronically Signed By: Danyel HARVEY, David Carrillo\.br\Date and Time Signed: 08/18/22 06:50 EST Consent for Procedure/Surger yon 08-17-2022 Consent for Procedure/Surgery [id number]#1.00C D:127 [facility] Physician Orderon 08-16-2022 Physician Order [id number]#1.0 0CD:127 Normal [facility] BUNon 08-08-2022 Urea nitrogen [Mass/Vol] 10 mg/dL Normal 5-21 [facility] Comment on above: Performed By: #### 2 [id number], [id number], [id number], [id number], [id number], [id number] ####[facility] [id number] [place] [address] CBC w/Indiceson 08-08-2022 Erythrocyte distribution width (RBC) [Ratio] 14.8 % High 10.9-14.2 [facility] Comment on above: Performed By: #### 2 [id number], 9730121, [id number], [id number], [id number], [id number] ####[facility] [facility] [id number] [place] [address] Hematocrit (Bld) [Volume fraction] 38.8 % Normal 34.0-46.0 [facility] Comment on above: Performed By: #### 2 [id number], [id number], [id number], 9791953, 9071826, [id number] ####[facility] [address] [place] [address] Hemoglobin (Bld) [Mass/Vol] 12.9 g/dL Normal 12.0-16.0 [facility] Comment on above: Performed By: #### 2 597782, 8538066, [id number], 9805924, 4290650, 8185475 ####[facility] [address] [place] [address] MCH (RBC) [Entitic mass] 29.3 pg Normal 27.0-34.0 [facility] Comment on above: Performed By: #### 2 509734, 9934958, 85400825, 9830380, 3614039, 2533626 ####[facility] [address] [place] [address] MCHC (RBC) [Mass/Vol] 33.4 g/dL Normal 31.4-36.0 [facility] Comment on above: Performed By: #### 2 141787, 2008004, 91164366, 2081379, 6140428, 2812211 ####[facility] [address] [place] [address] MCV (RBC) [Entitic vol] 87.7 fL Normal 80.0-100.0 [facility] Comment on above: Performed By: #### 2 629351, 2834122, 50457398, 0723366, 1609753, 8072297 ####[address] [place] [address] Platelet mean volume (Bld) [Entitic vol] 8.3 fL Normal 6.4-10.8 [facility] Comment on above: Performed By: #### 2 235379, 6200653, 24568531, 8726253, 5604615, 3852749 ####[address] [place] [address] Platelets (Bld) [#/Vol] 278.0 E9/L Normal 150.0-500.0 [facility] Comment on above: Performed By: #### 2 425589, 8739481, 80013494, 3711297, 3822612, 9018923 ####[address] [place] [address] RBC (Bld) [#/Vol] 4.4 E12/L Normal 4.3-5.9 [facility] Comment on above: Performed By: #### 2 904813, 3153041, 15282557, 6389463, 5468442, 8722857 ####[address] [place] [address] WBC corrected for nucl RBC Auto (Bld) [#/Vol] 10.7 E9/L Normal 4.0-11.0 [facility] Comment on above: Performed By: #### 2 717475, 5511084, 46502665, 9220400, 5791391, 0070823 ####[address] [place] [address] CHEMISTRYOrdered By: SYSTEM SYSTEM on 08-08-2022 Anion gap [Moles/Vol] 12 mmol/L Normal 6 - 16 mEq/L [facility] Remisol Chloride [Moles/Vol] 108 mmol/L Normal 101 - 1 11 mmol/L [facility] Remisol CO2 [Moles/Vol] 26 mmol/L Normal 21 - 31 mmol/L [facility] Remisol Creatinine [Mass/Vol] 0.9 mg/dL Normal 0.5 - 1.3 mg/dL [facility] Remisol GFR/1.73 sq M.predicted among blacks MDRD (S/P/Bld) [Vol rate/Area] mL/min/1.73 m2 Normal >=59mL/min/ 1.73 m2 [facility] Chem S GFR/1.73 sq M.predicted among non-blacks MDRD (S/P/Bld) [Vol rate/Area] mL/min/1.73 m2 Normal >=59mL/min/ 1.73 m2 [facility] Chem S Glucose [Mass/Vol] 96 mg/dL Normal 55 - 199 mg/dL [facility] Remisol Potassium [Moles/Vol] 3.6 mmol/L Normal 3.5 - 5.3 mmol/L [facility] Remisol Sodium [Moles/Vol] 142 mmol/L Normal 135 - 145 mmol/L [facility] Remisol Urea nitrogen [Mass/Vol] 10 mg/dL Normal 5 - 21 mg/dL [facility] Remisol Consent for Treatmenton 07-26 Consent for Treatment [id number] D:127 Normal [facility] Creatinineon 08-08-2022 Creatinine [Mass/Vol] 0.9 mg/dL Normal 0.5-1.3 [facility] Comment on above: Performed By: #### 2 558018, 1153949, 59387638, 8285543, 5631376, 2696410 ####[facility] [address] [place] [address] Glucoseon 08-08-2022 Glucose [Mass/Vol] 96 mg/dL Normal 55-199 [facility] Comment on above: Performed By: #### 2 505994, 2003474, 30339590, 4625763, 1156878, 4255123 ####[facility] [address] [place] [address] HEMATOLOGYOrdered By: Carlos Humphrey on 08-08-2022 Erythrocyte [...] Anion gap [Moles/Vol] 12 mmol/L Normal 6-16 [facility] Comment on above: Performed By: #### 2 117901, 3497211, 68300790, 0966056, 3089499, 6693139 ####[facility] [address] [place] [address] Chloride [Moles/Vol] 108 mmol/L Normal 101-111 [facility] Comment on above: Performed By: #### 2 658024, 4523924, 97409807, 2754742, 9463877, 0802021 ####[facility] [address] [place] [address] CO2 [Moles/Vol] 26 mmol/L Normal 21-31 [facility] Comment on above: Performed By: #### 2 505309, 9341971, 36455073, 6011524, 7519352, 5668895 ####[facility] [address] [place] [address] Potassium [Moles/Vol] 3.6 mmol/L Normal 3.5-5.3 [facility] Comment on above: Performed By: #### 2 368626, 1986709, 74527656, 7886750, 6014599, 8169414 ####[facility] [address] [place] [address] Sodium [Moles/Vol] 142 mmol/L Normal 135-145 [facility] Comment on above: Performed By: #### 2 170881, 2829884, 84737177, 8695389, 1540787, 4145628 ####[facility] [address] [place] [address] XR Chest 2 Viewson 3 XR Chest [...] V. Transcribed by: CANDELARIA Technologist: ALEYDA Aguilar [facility] eGFRon 08-08-2022 GFR/1.73 sq M.predicted among blacks MDRD (S/P/Bld) [Vol rate/Area] mL/min/{1.73_m2} Normal >=59 [facility] Comment on above: Order Comment: Order added by Discern Expert. Result Comment: eGFR is race adjusted. AA=. Performed By: #### 2 967273, 2244603, 94097145, 9370127, 3166504, 6297276 ####[facility] [address] [place] [address] GFR/1.73 sq M.predicted among non-blacks MDRD (S/P/Bld) [Vol rate/Area] mL/min/{1.73_m2} Normal >=59 [facility] Comment on above: Order Comment: Order added by Discern Expert. Result Comment: Engine Dynamometer Tester reginaldo kidney disease could be indicated at eGFR's of less than 60 mL/min/1.73m2. Kidney failure is indicated at less than 15 mL/min/1.73m2. Performed By: #### 2 593425, 5982173, 41659679, 1377722, 6711086, 3297869 ####[facility] [address] [place] [address] CT HEAD WO CONon 10-31-2021 CT HEAD [...] by: ROSANNE PERKINS Date: 2021-10-31 14:25 Normal [facility] XR CHEST 1 Von 10-21-2021 [...] by: ЕЛЕНА ROBERT Date: 2021-10-21 15:50 Normal [facility] XR KUB 1 VIEWon 10-21-2021 XR KUB 1 VIEW EXAM: XR KUB 1 VIEW, XR SKULL LESS THAN 4 VIEWS Clinical Indication: Benign intracranial hypertension Comparison: None FINDINGS: Images of the skull shows a right-sided GLAZIER ARTIST shunt tube, coursing along the right side of the neck and chest into the right side of the abdomen The supine and upright views of the abdomen shows a non-obstructive bowel gas pattern. There is no abnormal dilatation of bowel loops. No significant air fluid levels. There is no pneumoperitoneum. Right-sided GLAZIER ARTIST shunt is seen, with the tip in the area of the bladder. Cholecystectomy changes are seen. There are no clinically significant osseous abnormalities noted. IMPRESSION: Unremarkable abdominal series The shunt tube begins in the right cerebral hemisphere, and terminates in the pelvis. No obvious discontinuity or kink SL: [id number] Electronically authenticated by: ЕЛЕНА ROBERT Date: 2021-10-21 16:49 Normal [facility] Vital Signs Date Time Vital Sign Value Performing Clinician Facility 03-11-2025 09:55-0400 Body weight 86.18 kg Dinesh Bobo MD Work Phone: [facility] 03-11-2025 09:55-0400 Diastolic blood pressure 76 mm[Hg] Dinesh Bobo MD Work Phone: [facility] 03-11-2025 09:55-0400 Heart rate 70 /min Dinesh Bobo MD Work Phone: [facility] 03-11-2025 09:55-0400 SaO2% (BldA) [Mass fraction] 97 % Dinesh Bobo MD Work Phone: [facility] 03-11-2025 09:55-0400 Systolic blood pressure 108 mm[Hg] Dinesh Bobo MD Work Phone: [facility] 02-18-2025 10:43-0400 Body height 157.48 cm Dinesh Bobo MD Work Phone: [facility] 02-18-2025 10:43-0400 Body mass index (BMI) [Ratio] 34.5 kg/m2 Dinesh Bobo MD Work Phone: [facility] 02-18-2025 10:43-0400 Body temperature 96.6 [degF] Dinesh Bobo MD Work Phone: [facility] 02-18-2025 10:43-0400 Body weight 85.72 kg Dinesh Bobo MD Work Phone: [facility] 02-18-2025 10:43-0400 Diastolic blood pressure 76 mm[Hg] Dinesh Bobo MD Work Phone: [facility] 02-18-2025 10:43-0400 Heart rate 66 /min Dinesh Bobo MD Work Phone: [facility] 02-18-2025 10:43-0400 Respiratory rate 18 /min Dinesh Bobo MD Work Phone: [facility] 02-18-2025 10:43-0400 SaO2% (BldA) [Mass fraction] 96 % Dinesh Bobo MD Work Phone: [facility] 02-18-2025 10:43-0400 Systolic blood pressure 124 mm[Hg] Dinesh Bobo MD Work Phone: [facility] 01-27-2025 13:31-0400 Body height 154.94 cm Dinesh Bobo MD Work Phone: [facility] 01-27-2025 13:31-0400 Body mass index (BMI) [Ratio] 35.9 kg/m2 Dinesh Bobo MD Work Phone: [facility] 01-27-2025 13:31-0400 Body weight 86.18 kg Dinesh Bobo MD Work Phone: [facility] 01-27-2025 13:31-0400 Diastolic blood pressure 65 mm[Hg] Dinesh Bobo MD Work Phone: [facility] 01-27-2025 13:31-0400 Heart rate 85 /min Dinesh Bobo MD Work Phone: [facility] 01-27-2025 13:31-0400 Systolic blood pressure 98 mm[Hg] Dinesh Bobo MD Work Phone: [facility] 01-13-2025 13:18-0400 Body height 154.94 cm Dinesh Bobo MD Work Phone: [facility] 01-13-2025 13:18-0400 Body mass index (BMI) [Ratio] 35.3 kg/m2 Dinesh Bobo MD Work Phone: [facility] 01-13-2025 13:18-0400 Body weight 84.82 kg Dinesh Bobo MD Work Phone: [facility] 01-13-2025 13:18-0400 Diastolic blood pressure 64 mm[Hg] Dinesh Bobo MD Work Phone: [facility] 01-13-2025 13:18-0400 Heart rate 82 /min Dinesh Bobo MD Work Phone: [facility] 01-13-2025 13:18-0400 Systolic blood pressure 92 mm[Hg] Dinesh Bobo MD Work Phone: [facility] 12-19-2024 13:03-0400 Body height 154.94 cm Dinesh Bobo MD Work Phone: [facility] 12-19-2024 13:03-0400 Body mass index (BMI) [Ratio] 35.6 kg/m2 Dinesh Bobo MD Work Phone: [facility] 12-19-2024 13:03-0400 Body weight 85.72 kg Dinesh Bobo MD Work Phone: [facility] 12-19-2024 13:03-0400 Diastolic blood pressure 61 mm[Hg] Dinesh Bobo MD Work Phone: [facility] 12-19-2024 13:03-0400 Heart rate 101 /min Dinesh Bobo MD Work Phone: [facility] 12-19-2024 13:03-0400 Systolic blood pressure 91 mm[Hg] Dinesh Bobo MD Work Phone: [facility] 11-21-2024 10:57-0400 Body height 154.94 cm Dinesh Bobo MD Work Phone: [facility] 11-21-2024 10:57-0400 Body mass index (BMI) [Ratio] 36.1 kg/m2 Dinesh Bobo MD Work Phone: [facility] 11-21-2024 10:57-0400 Body weight 86.86 kg Dinesh Bobo MD Work Phone: [facility] 11-21-2024 10:57-0400 Diastolic blood pressure 68 mm[Hg] Dinesh Bobo MD Work Phone: [facility] 11-21-2024 10:57-0400 Heart rate 76 /min Dinesh Bobo MD Work Phone: [facility] 11-21-2024 10:57-0400 Respiratory rate 12 /min Dinesh Bobo MD Work Phone: [facility] 11-21-2024 10:57-0400 SaO2% (BldA) [Mass fraction] 96 % Dinesh Bobo MD Work Phone: [facility] 11-21-2024 10:57-0400 Systolic blood pressure 105 mm[Hg] Dinesh Bobo MD Work Phone: [facility] 10-14-2024 09:50-0400 Body height 154.94 cm Dinesh Bobo MD Work Phone: [facility] 10-14-2024 09:50-0400 Body mass index (BMI) [Ratio] 35.6 kg/m2 Dinehs Bobo MD Work Phone: [facility] 10-14-2024 09:50-0400 Body temperature 98.7 [degF] Dinesh Bobo MD Work Phone: [facility] 10-14-2024 09:50-0400 Body weight 85.72 kg Dinesh Bobo MD Work Phone: [facility] 10-14-2024 09:50-0400 Diastolic blood pressure 64 mm[Hg] Dinesh Bobo MD Work Phone: [facility] 10-14-2024 09:50-0400 Heart rate 102 /min Dinesh Bobo MD Work Phone: [facility] 10-14-2024 09:50-0400 SaO2% (BldA) [Mass fraction] 95 % Dinesh Bobo MD Work Phone: [facility] 10-14-2024 09:50-0400 Systolic blood pressure 95 mm[Hg] Dinesh Bobo MD Work Phone: [facility] 10-01-2024 14:27-0400 Body height 154.94 cm [facility] 10-01-2024 14:27-0400 Body mass index (BMI) [Ratio] 34.5 kg/m2 [facility] 10-01-2024 14:27-0400 Body weight 83 kg [facility] 10-01-2024 14:27-0400 Diastolic blood pressure 70 mm[Hg] [facility] 10-01-2024 14:27-0400 Heart rate 71 /min [facility] 10-01-2024 14:27-0400 Systolic blood pressure 124 mm[Hg] [facility] 07-04-2024 09:25-0500 Body height 154.94 cm [facility] 07-04-2024 09:25-0500 Body mass index (BMI) [Ratio] 34.5 kg/m2 [facility] 07-04-2024 09:25-0500 Body weight 83.03 kg [facility] 07-04-2024 09:25-0500 Diastolic blood pressure 62 mm[Hg] [facility] 07-04-2024 09:25-0500 Heart rate 78 /min [facility] 07-04-2024 09:25-0500 Systolic blood pressure 102 mm[Hg] [facility] 03-28-2024 09:08-0400 Body height 154.94 cm MD Dinesh Bobo Work Phone: [facility] 03-28-2024 09:08-0400 Body mass index (BMI) [Ratio] 34 kg/m2 MD Dinesh Bobo Work Phone: [facility] 03-28-2024 09:08-0400 Body weight 81.64 kg MD Dinesh Bobo Work Phone: [facility] 01-07-2024 13:41-0400 Diastolic blood pressure 53 mm[Hg] MD Dinesh Bobo Work Phone: [facility] 01-07-2024 13:41-0400 Heart rate 64 /min MD Dinesh Bobo Work Phone: [facility] 01-07-2024 13:41-0400 Respiratory rate 16 /min MD Dinesh Bobo Work Phone: [facility] 01-07-2024 13:41-0400 SaO2% (BldA) [Mass fraction] 100 % MD Dinesh Bobo Work Phone: [facility] 01-07-2024 13:41-0400 Systolic blood pressure 94 mm[Hg] MD Dinesh Bobo Work Phone: [facility] 01-07-2024 11:34-0400 Body height 154.94 cm MD Dinesh Bobo Work Phone: [facility] 01-07-2024 11:34-0400 Body weight 82.1 kg MD Dinesh Bobo Work Phone: [facility] 12-13-2023 13:10-0400 Body height 152.4 cm MD Dinesh Bobo Work Phone: [facility] 12-13-2023 13:10-0400 Body mass index (BMI) [Ratio] 36.3 kg/m2 MD Dinesh Bobo Work Phone: [facility] 12-13-2023 13:10-0400 Body weight 84.36 kg MD Dinesh Bobo Work Phone: [facility] 10-19-2023 11:28-0400 Diastolic blood pressure 60 mm[Hg] MD Dinesh Bobo Work Phone: [facility] 10-19-2023 11:28-0400 Heart rate 55 /min MD Dinesh Bobo Work Phone: [facility] 10-19-2023 11:28-0400 Respiratory rate 16 /min MD Dinesh Bobo Work Phone: [facility] 10-19-2023 11:28-0400 SaO2% (BldA) [Mass fraction] 96 % MD Dinesh Bobo Work Phone: [facility] 10-19-2023 11:28-0400 Systolic blood pressure 96 mm[Hg] MD Dinesh Bobo Work Phone: [facility] 10-19-2023 09:21-0400 Body height 152.4 cm MD Dinesh Bobo Work Phone: [facility] 10-19-2023 09:21-0400 Body weight 84.36 kg MD Dinesh Bobo Work Phone: [facility] 10-03-2023 10:40-0400 Body height 158.75 cm [facility] 10-03-2023 10:40-0400 Body mass index (BMI) [Ratio] 34 kg/m2 [facility] 10-03-2023 10:40-0400 Body weight 85.72 kg [facility] 09-07-2023 11:27-0400 Body height 158.75 cm [facility] 09-07-2023 11:27-0400 Body mass index (BMI) [Ratio] 34 kg/m2 [facility] 09-07-2023 11:27-0400 Body weight 85.84 kg [facility] 03-15-2024 11:27-0400 Diastolic blood pressure 70 mm[Hg] [facility] 09-07-2023 11:27-0400 Heart rate 78 /min [facility] 09-07-2023 11:27-0400 Systolic blood pressure 106 mm[Hg] [facility] 06-29-2023 09:45-0500 Body height 158.75 cm Dinesh Bobo Other [facility] 06-29-2023 09:45-0500 Body mass index (BMI) [Ratio] 34.19 kg/m2 Dinesh Bobo Other [facility] [employer] Other 06-29-2023 09:45-0500 Body weight 86.18 kg Dinesh Bobo Other [facility] 06-29-2023 09:45-0500 Diastolic blood pressure 70 mm[Hg] Dinesh Bobo Other [facility] 06-29-2023 09:45-0500 Systolic blood pressure 101 mm[Hg] Dinesh Bobo Other [facility] 08-18-2022 14:08-0500 Heart rate 65 /min [facility] [employer] [facility] 08-18-2022 14:08-0500 SaO2% (BldA) [Mass fraction] 95 % [facility] [employer] [facility] 08-18-2022 14:08-0500 Diastolic blood pressure 73 mm[Hg] [facility] [employer] [facility] 08-18-2022 14:08-0500 Mean blood pressure 85 mm[Hg] [facility] [employer] [facility] 08-18-2022 14:08-0500 Systolic blood pressure 110 mm[Hg] [facility] [employer] [facility] 08-18-2022 14:08-0500 Respiratory rate 18 /min [facility] [employer] [facility] 08-18-2022 13:04-0500 Heart rate 71 /min Reza Proctor [facility] 08-18-2022 13:04-0500 SaO2% (BldA) [Mass fraction] 92 % Reza Brown [facility] 08-18-2022 12:10-0500 SaO2% (BldA) [Mass fraction] 94 % Reza Proctor [facility] 08-18-2022 12:06-0500 Heart rate 75 /min [facility]za Proctor [facility] 08-18-2022 12:05-0500 Respiratory rate 18 /min Reza Proctor [facility] 08-18-2022 12:04-0500 Diastolic blood pressure 70 mm[Hg] Reza Brown [facility] 08-18-2022 12:04-0500 Mean blood pressure 80 mm[Hg] Reza Brown [facility] 08-18-2022 12:04-0500 Systolic blood pressure 101 mm[Hg] Reza Brown [facility] 08-18-2022 12:04-0500 Body temperature 97.52 [degF] Reza Brown [facility] 08-18-2022 11:55-0500 Body temperature 97.7 [degF] Reza Brown [facility] 08-18-2022 11:55-0500 Diastolic blood pressure 66 mm[Hg] Reza Brown [facility] 08-18-2022 11:55-0500 Mean blood pressure 74 mm[Hg] Reza Brown [facility] 08-18-2022 11:55-0500 Respiratory rate 12 /min [facility] [employer] [facility] 08-18-2022 11:55-0500 Systolic blood pressure 90 mm[Hg] Reza Proctor [facility] 08-18-2022 11:45-0500 Mean blood pressure 79 mm[Hg] Reza Brown [facility] 08-18-2022 11:45-0500 Respiratory rate 16 /min Reza Brown [facility] 08-18-2022 11:30-0500 Mean blood pressure 83 mm[Hg] Reza Proctor [facility] 08-18-2022 11:30-0500 Respiratory rate 12 /min Reza Proctor [facility] 08-18-2022 11:02-0500 Body temperature 97.16 [degF] Reza Proctor [facility] 08-18-2022 10:55-0500 Respiratory rate 10 /min Reza Proctor [facility] 08-18-2022 06:40-0500 Mean blood pressure 83 mm[Hg] Reza Proctor [facility] 08-18-2022 06:40-0500 Blood Pressure Location Reza Proctor [facility] 08-18-2022 06:40-0500 Heart rate 88 /min Reza Proctor [facility] 08-18-2022 06:39-0500 Body temperature 98.06 [degF] Reza Proctor [facility] 08-18-2022 06:38-0500 Blood Pressure Location Reza Proctor [facility] 08-16-2022 09:15-0500 Body height 158.75 cm Dinesh Bobo Other [employer] Other 08-16-2022 09:15-0500 Body mass index (BMI) [Ratio] 35.45 kg/m2 Dinesh Bobo Other [employer] Other 08-16-2022 09:15-0500 Body weight 89.36 kg Dinesh Bobo Other [employer] Other 08-16-2022 09:15-0500 Diastolic blood pressure 68 mm[Hg] Dinesh Bobo Other [employer] Other 08-16-2022 09:15-0500 SaO2% (BldA) [Mass fraction] 97 % Dinesh Bobo Other [employer] Other 08-16-2022 09:15-0500 Systolic blood pressure 108 mm[Hg] Dinesh Bobo Other [employer] Other 08-08-2022 15:39-0500 Diastolic blood pressure 77 mm[Hg] [employer] [facility] 08-08-2022 15:39-0500 Heart rate 71 /min [employer] [facility] 08-08-2022 15:39-0500 Mean blood pressure 90 mm[Hg] [employer] [facility] 08-08-2022 15:39-0500 Systolic blood pressure 117 mm[Hg] [facility]za [employer] [facility] 08-08-2022 15:39-0500 Heart rate 77 /min [employer] [facility] 08-08-2022 15:39-0500 SaO2% (BldA) [Mass fraction] 100 % [employer] [facility] 08-08-2022 15:38-0500 Diastolic blood pressure 81 mm[Hg] [facility] [employer] [facility] 08-08-2022 15:38-0500 Mean blood pressure 98 mm[Hg] Reza Proctor [facility] 08-08-2022 15:38-0500 Systolic blood pressure 133 mm[Hg] Reza Proctor [facility] 08-08-2022 15:38-0500 Respiratory rate 16 /min Reza Proctor [facility] 11-15-2021 11:00-0400 Body height 158.75 cm Seb Jeramie Other [employer] Other 11-15-2021 11:00-0400 Body mass index (BMI) [Ratio] 33.83 kg/m2 Seb Bobo Other [employer] Other 11-15-2021 11:00-0400 Body weight 85.28 kg Seb Jeramie Other [employer] Other Encounters Encounter Date Encounter Type Care Provider Facility Start: 03-11-2025 End: 03-11-2025 ambulatory Dinesh Bobo MD Work Phone: [facility] Work Phone: Start: 03-11-2025 End: 03-11-2025 Patient encounter procedure Toan Morin DO -[facility] [place] Work Phone: Start: 03-10-2025 Non-patient / Non-visit Imelda Robles [facility] Work Phone: Start: 03-08-2025 Non-patient / Non-visit Germaine Núñez MD -[employer] Work Phone: Start: 02-18-2025 End: 02-18-2025 ambulatory Dinesh Bobo MD Work Phone: [facility] Work Phone: Start: 02-18-2025 End: 02-18-2025 Patient encounter procedure Jaylin Carrero HOSPICE RN -[facility] Work Phone: Start: 01-27-2025 End: 01-27-2025 ambulatory Dinesh Bobo MD Work Phone: [facility] Work Phone: Start: 01-27-2025 End: 01-27-2025 Patient encounter procedure Dinesh Bobo MD -[facility] Work Phone: Start: 01-13-2025 End: 01-13-2025 ambulatory Dinesh Bobo MD Work Phone: [facility] Work Phone: Start: 01-13-2025 End: 01-13-2025 Patient encounter procedure Dinesh Bobo MD -[facility] Work Phone: Start: 12-19-2024 End: 12-19-2024 ambulatory Dinesh Bobo MD Work Phone: [facility] Work Phone: Start: 12-19-2024 End: 12-19-2024 Patient encounter procedure Dinesh Bobo MD -[facility] Work Phone: Start: 11-21-2024 End: 11-21-2024 ambulatory Dinesh Bobo MD Work Phone: [facility] Work Phone: Start: 11-21-2024 End: 11-21-2024 Patient encounter procedure Dinesh Bobo MD Work Phone: [facility] Phys[facility] Work Phone: Start: 11-07-2024 End: 11-07-2024 Patient encounter procedure Dinesh Bobo MD Work Phone: [place] [place] Work Phone: Start: 11-07-2024 End: 11-07-2024 ambulatory Imelda L Ly Facility:[facility] Start: 10-14-2024 Non-patient / Non-visit Dinesh Bobo MD Work Phone: [facility] Phys[facility] Work Phone: Start: 10-14-2024 End: 10-14-2024 ambulatory Dinesh Bobo MD Work Phone: [facility] Work Phone: Start: 10-14-2024 End: 10-14-2024 Patient encounter procedure Dinesh Bobo MD Work Phone: [facility] Work Phone: Start: 10-03-2024 End: 10-03-2024 Patient encounter procedure Dinesh Bobo MD Work Phone: [facility] [place] Work Phone: Start: 10-03-2024 End: 10-03-2024 ambulatory Dinesh Bobo MD Work Phone: [place] Work Phone: Start: 10-01-2024 End: 10-01-2024 ambulatory [facility] Work Phone: Start: 10-01-2024 End: 10-01-2024 Patient encounter procedure [facility] Work Phone: Start: 07-26-2024 Non-patient / Non-visit [facility] Work Phone: Start: 07-25-2024 End: 07-25-2024 ambulatory [facility] Start: 07-04-2024 End: 07-04-2024 Patient encounter procedure [facility] Work Phone: Start: 05-24-2024 ambulatory [facility] Start: 03-28-2024 End: 03-28-2024 ambulatory MD Dinesh Bobo Work Phone: [facility] Work Phone: Start: 03-28-2024 End: 03-28-2024 Patient encounter procedure MD Dinesh Bobo Work Phone: [facility] [place] Work Phone: Start: 03-12-2024 End: 03-12-2024 Nursing evaluation of patient and report Breath Test [facility] Work Phone: [facility] Comment on above: Diarrhea, unspecifie d type (Primary Dx) Start: 01-07-2024 Non-patient / Non-visit MD Dinesh Bobo Work Phone: [facility] Work Phone: Start: 01-07-2024 End: 01-07-2024 Admission to same day surgery center MD Dinesh Bobo Work Phone: [facility] Work Phone: Start: 01-07-2024 End: 01-07-2024 ambulatory MD Dinesh Bobo Work Phone: [place] Work Phone: Start: 12-13-2023 End: 12-13-2023 Patient encounter procedure MD Dinesh Bobo Work Phone: [facility] G[facility] Work Phone: Start: 11-07-2023 Non-patient / Non-visit MD Dinesh Bobo Work Phone: [facility] Work Phone: Start: 11-02-2023 End: 11-02-2023 ambulatory MD Dinesh Bobo Work Phone: [facility] Work Phone: Start: 11-02-2023 End: 11-02-2023 Patient encounter procedure MD Dinesh Bobo Work Phone: [facility] [place] Work Phone: Start: 10-24-2023 Non-patient / Non-visit MD Dinesh Bobo Work Phone: [facility] Work Phone: Start: 10-22-2023 Non-patient / Non-visit MD Dinesh Bobo Work Phone: [facility] Work Phone: Start: 10-19-2023 Non-patient / Non-visit MD Dinesh Bobo Work Phone: [facility] Work Phone: Start: 10-19-2023 End: 10-19-2023 Admission to same day surgery center MD Dinesh Bobo Work Phone: [facility] Work Phone: Start: 10-19-2023 End: 10-19-2023 ambulatory MD Dinesh Bobo Work Phone: [place] Work Phone: Start: 10-03-2023 End: 10-03-2023 ambulatory [facility] Work Phone: Start: 10-03-2023 End: 10-03-2023 Patient encounter procedure [facility] G[facility] Work Phone: Start: 09-07-2023 End: 09-07-2023 ambulatory [facility] Work Phone: Start: 09-07-2023 End: 09-07-2023 Patient encounter procedure [facility] Work Phone: Start: 08-14-2023 Non-patient / Non-visit [facility] Work Phone: Start: 07-17-2023 End: 07-17-2023 ambulatory Dinesh Bobo Other [facility] [employer] Other Start: 07-17-2023 Telephone encounter Dinesh Bobo [facility] Start: 06-29-2023 End: 06-29-2023 ambulatory Dinesh Bobo Other [employer] Other Start: 06-29-2023 Office outpatient visit 15 minutes Dinesh Bobo [facility] Start: 06-29-2023 End: 06-29-2023 Patient encounter procedure [facility] Work Phone: Start: 10-11-2022 End: 02-26-2023 ambulatory Reza Proctor Facility:[facility] Start: 10-11-2022 End: 02-25-2023 Recurring Reza Diaz [facility] Start: 08-23-2022 End: 08-23-2022 ambulatory Dinesh Bobo Other [employer] Other Start: 08-23-2022 Telephone encounter Dinesh Bobo [facility] Start: 08-21-2022 End: 08-21-2022 ambulatory Dinesh Bobo Other [employer] Other Start: 08-21-2022 Telephone encounter Dinesh Bobo [facility] Start: 08-18-2022 End: 08-18-2022 ambulatory Reza Proctor Facility:[facility] Start: 08-18-2022 End: 08-18-2022 Admission to same day surgery old forge Reza Proctor [facility] Start: 08-16-2022 End: 08-16-2022 ambulatory Dinesh Bobo Other [employer] Other Start: 08-16-2022 Office outpatient visit 15 minutes Dinesh Bobo [facility] Start: 08-14-2022 End: 08-15-[address] DINESH BOBO Facility: Start: 08-08-2022 End: 08-09-2022 ambulatory Reza Proctor Facility:[facility] Start: 08-08-2022 End: 08-08-2022 Patient encounter procedure Reza Proctor [facility] Start: 01-23-2022 End: 02-18-[address] DINESH BOBO Facility:[facility] Start: 01-12-2022 End: 01-13-[address] DINESH BOBO Facility:[facility] Start: 01-09-2022 Gynecological examination normal Dinesh Bobo Other [facility] [employer] Other Start: 11-15-2021 End: 11-15-2021 ambulatory Seb Bobo Other [facility] [employer] Other Start: 11-15-2021 Office outpatient ne w 30 minutes Seb Bobo [facility] Start: 10-31-2021 End: 11-01-2021 [...] collection please use: Cortisol PM: 2.3-11.9Performed at: [address] [id number] Director: Lloyd Wu PhD, Phone: [phone] Start: 03-28-2024 Supine abdominal X-ray MD Dinesh [...] Activity Detail Author Start: 01-13-2025 Patient referral [facility] Work Phone: Start: 12-19-2024 Patient referral [facility] Work Phone: Start: 10-03-2024 [facility] Start: 03-28-2024 Elastase.pancreatic [Mass/mass] in Stool [facility] Start: 02-24-2024 Covid-19 Vaccine ( season) Covid-19 Vaccine () [facility] Start: 02-24-2024 Influenza vaccination Influenza Vacc ine (#1) [facility] Start: 01-07-2024 [facility] Start: 10-19-2023 [facility] Start: 09-07-2023 Patient referral [facility] Work Phone: Start: 2020 Diabetes Screening Diabetes Screenin g [facility] Start: 2020 Lipid panel Lipid Screening [facility] Start: 2020 Screening for malign ant neoplasm of colon [facility] Start: 2015 Screening for malign ant neoplasm of breast Mammogram Screening [facility] Start: 1996 Screening for malign ant neoplasm of cervix Cervical Cancer Screening [facility] Start: 1994 Hepatitis B Vaccine (1 of 3 - 19+ 3-dose series) Hepatitis B Vaccine (1 of 3 - 19+ 3-dose series) [facility] Start: 1994 Urine microalbumin profile DTaP,Tdap,Td Vaccine (1 - Tdap) [facility] Start: 1993 Anxiety Screening Anxiety Screening [facility] Start: 1993 Depression Screening Depression Scre ening [facility] Start: 1993 Hepatitis C screening Hepatitis C Sc reening [facility] Start: 1993 HIV screening HIV Screening [facility] CT Abdomen and Pelvis [facility] MG Breast - bilatera l Screening [facility] Patient Education [place] Work Phone: Patient referral [facility] Work Phone: [facility] Payers Date Payer Category Payer Self-pay 2022 Private Health Insurance 1975 Unknown [id number] 2.16.84 [id number] 1975 Unknown [id number] 2.16.84 [id number] 1975 Unknown [id number] 2.16.84 [id number] 1975 Unknown [id number] 2.16.84 [id number] 1975 Unknown [id number] 2.16.84 [id number] 1975 Unknown [id number] 2.16.8 [id number] 1975 Unknown [id number] 2.16.8 [id number] 1975 Unknown [id number] 2.16.8 [id number] 1959 Unknown [id number] 2.16.8 [id number] Unknown [id number] 2.16 [id number] Unknown [place] [id number] Unknown [id number] 2.16.8 [id number] Unknown [id number] 2.16.8 [id number] Unknown [id number] 2.16.8 [id number] Unknown [id number] 2.16.8 [id number] Social History Date Type Detail Facility Start: 03-12-2024 Sex Assigned At F [facility] Start: 08-08-2022 Tobacco smoking status Light tobacco smoker (finding) [facility] Start: 1975 Sex Assigned At Female F [facility] Start: 10-19-2023 End: 01-07-2024 Tobacco smoking status NHIS Smoker (finding) [facility] Tobacco smoking status AZIS Tobacco smoking consumption unknown [facility] Start: 03-12-2024 History of Social function [facility] National Score (1-100), lower number is lower risk 91 [facility] Start: 1975 Sex assigned at Not on file [facility] Start: 10-01-2024 End: 11-21-2024 Sex Female (finding) [facility] Start: 01-07-2024 End: 03-11-2025 Tobacco smoking status NHIS Smokes tobacco daily (finding) [facility] Medical Equipment Procedure Code Equipment Code Equipment Origin al Text Equipment Identifier Dates ULNAR NERVE TRANSPOSITION Reza Proctor DO 08/18/22 Unknown Elbow L FDA Start: 08-18-2022 ULNAR NERVE TRANSPOSITION Reza Proctor DO 08/18/22 Unknown Elbow L FDA Start: 08-18-2022 Goals Date Patient Goal Desired Activity /State Functional Status Date Assessment Result Facility 08-08-[address] [facility] Clinical Notes 11-15-2021 to 01-13-2025 Note Date & Type Note Facility 01-13-2025 Hospital Discharg e instructions Ambulatory OrdersReferral to ENT Time Frame: 01/13/25, Location: None Selected [facility] Work Phone: 12-19-2024 Evaluation note Diagnosis Onset [...] depressive disorder acute January 27, 2025 1:30pm Institute eye disease of both eyes acute February 18 10:38am Chronic migraine without aura or status migrainosus acute March 11, 2025 9:49am Status post ventriculo-peritoneal shunt placement acute March 11, 2025 9:49am [facility] Work Phone: 1(988) 662-368505-30-2025 Evaluation note* Diagnosis Onset Date Resolution Status [...] canal mass acute January 13, 2025 1:08pm [facility] Work Phone: 1(361) 475-996505-30-2025 Evaluation note* Diagnosis Onset Date Resolution Status [...] canal mass acute January 13, 2025 1:08pm [facility] Work Phone: 1(538) 730-956505-30-2025 Evaluation note* Diagnosis Onset Date Resolution Status [...] depressive disorder acute January 27, 2025 1:30pm [facility] Work Phone: 1(144) 924-497204-09-2025 Evaluation note* Diagnosis Onset Date Resolution Status Admit Date Irritable bowel syndrome wit h diarrhea acute October 01, 2024 1:54pm [place] Work Phone: 1(107) 235-454504-09-2025 Evaluation note* Diagnosis Onset Date Resolution Status Admit Date Irritable bowel syndrome wit h diarrhea acute October 01, 2024 1:54pm Sinusitis, acute maxillary acute October 14, 2024 9:48am Class 2 obesity with body ma ss index (BMI) of 36.0 to 36.9 in adult acute November 21, 2024 1 0:55am [facility] Work Phone: 1(195) 357-628604-09-2025 Evaluation note* Diagnosis Onset Date Resolution Status Admit Date Irritable bowel syndrome wit h diarrhea acute October 01, 2024 1:54pm Sinusitis, acute maxillary acute October 14, 2024 9:48am Class 2 obesity with body ma ss index (BMI) of 36.0 to 36.9 in adult acute November 21, 2024 1 0:55am Headache acute December 19 1:01pm Intracranial shunt acute November 242024 1:01pm [facility] Work Phone: 1(576) 720-229701-31-2025 [facility] Reason for [...] She reports 2 events of syncope same-day [id number] as described above RESPIRATORY: Denies SOB, coughing, [...] sinus arrhythmia, RSR nelson (more content not included)...[facility]01-10-2025 Evaluation note* Diagnosis Onset Date Resolution Status Admit Date Irritable bowel syndrome wit h diarrhea acute July 04 9:19am [facility] Work Phone: 1(232) 579-352109-18-2024 History of Present illness Narrative* Shelley Gamboa APRN.CHANNEL BUSINESS MANAGER - 03/12/2024 5:04 PM EDT Glucose - SIBO CPT 92241 Hydrogen Breath Test Poornima Barker 1975 March 12, 2024 Referring Physician: Imelda Jiang DO Indication: NSG TEST INDICATIONS: DIARRHEA R19.7 Weight: 183 lbs Location: [facility] Duration of Test: 2 Hours [...] physician Signature:Shelley Gamboa APRN.CNP documented in this encounter[facility] History and physical note Author Imelda Jiang [facility] October 19, 2023 9:55am Note Date/Time October 19, 2023 9:5 5am [facility] [address] [place] [address] Gastroenterology H&P Signed Patient: Poornima Barker MR#: [id number] : 1975 Acct:[id number] Age/Sex: 48 / F Adm Date: 4 Loc: Room: Type: [facility] Attending Dr: Imelda Jiang DO Copies to: [...] signed by Imelda Jiang DO> 10/19/23 0955 [place] Work Phone: 1(258) [phone] Procedure [facility]04-26-2024 Procedure [facility]01-23-2024 Evaluation note* Encounter Date Diagnosis Assessment Notes Treatment Notes Treatment Clinical Notes Jun, Major depressive disorder with single episode, remission status unspecified (ICD-10 - F32.9) Jun, Insomnia, unspecified (ICD-10 - G47.00) [employer] Other 01-05-2024 Evaluation note* Encounter Date Diagnosis Assessment Notes Treatment Notes Treatment Clinical Notes Jun, Major depressive disorder with single episode, remission status unspecified (ICD-10 - F32.9) call or come in 1 month for recheck gave counseling options Jun, Insomnia, unspecified (ICD-10 - G47.00) as above [employer] Other 02-24-2023 Evaluation + Plan noteExtracted from: Title:ANES Post-operative Note Author:David Montaño MD Date:08/18/22 Plan Transfer/Discharge: Transfer/Discharge Discharge when meets criteria ( From PACU to Ambulatory Surgery Unit, and To home ). Extracted from: Title:ANES Pre-operative Note Author:Danyel HARVEY, R zora S. Date:08/18/22 Plan [place] [employer]hesiologists (ASA) physical status classification: Class II. Anesthetic Preoperative Plan: Anesthesia General. Regional Interscalene block. [facility]02-24-2023 Hospital Discharge instructions Patient Education 08/18/2022 07:13:25 Ric Proctor - Upper Extremity Fracture Surgery (Custom) [place], [place] [facility] UPPER EXTREMITY SURGERY Home [...] too soon, you are considered an impaired drive away driver, and this could be a problem. It is therefore advised notto drive until after your first office visit following surgery. Do not drive while taking pain medication. Reza Proctor, DO [facility] [address] [place] [address] Reviewed: 08/18/2022 06:11:36 Post Op Patient Instructions - FT (Custom) [facility]02-23-2023 Note [id number]:127[facility] 08-16-2022 Evaluation note* Encounter Date Diagnosis Assessment Notes Treatment Notes Treatment Clinical Notes Jul, Other non-recurrent acute nonsuppurative otitis media of both ears (ICD-10 - H65.193) Stop augmentin. Switch to zpack. Finish all antibiotic. Get OTC debrox for R ear treatment for cerumen. [employer] Other 07-22-2022 NotePROCEDURE: XR ELBOW LT MIN [...] Electronically authenticated by: ROSANNE PERKINS Date: 2022-01-13 07:40[facility]07-22-2022 NotePROCEDURE: XR ELBOW LT MIN [...] Electronically authenticated by: ROSANNE PERKINS Date: 2022-01-13 07:40[facility]05-24-2022 Evaluation note* Encounter Date Diagnosis [...] migraine type (ICD-10 - G43.909) October, S/P GLAZIER ARTIST shunt (ICD-10 - Z98.2) [facility] [employer] Other evaluation + Plan note Future Appointments Appointment Date:08/18/2022 09:30:00 AM Scheduled Provider: Location:[facility] Appointment Type:[facility]gery [facility] noteNo InformationNortOSS Health [employer] Other Evaluation note* Diagnosis Onset Date Resolution Status Screening mammogram for breast cancer [facility] Work Phone: Evaluation note* Diagnosis Onset Date Resolution Status Epigastric abdominal pain ac [place] GERD (gastroesophageal reflux disease) acute Screening mammogram for breast cancer acute Chronic constipation acute Epigastric abdominal pain ac [place] GERD (gastroesophageal reflux disease) acute Screening for colon cancer [facility] Work Phone: Evaluation note* Diagnosis Onset Date Resolution Status Diarrhea acute Epigastric abdominal pain ac [place] GERD (gastroesophageal reflux disease) acute [facility] Work Phone: Evaluation note* Diagnosis Onset Date Resolution Status Diarrhea acute [facility] Work Phone: Evaluation note* Diagnosis Diarrhea, unspecified type- Primary documented in this encounter [facility] Author Imelda Jiang [facility] January 07, 2024 12:35pm Note Date/Time January 07, 2024 12:3 5pm [facility] [address] [place] [address] Gastroenterology H&P Signed Patient: Poornima Barker MR#: [id number] : 1975 Acct:[id number] Age/Sex: 48 / F Adm Date: 4 Loc: Room: Type: [facility] Attending Dr: Imelda Jiang DO Copies to: [...] signed by Imelda Jiang DO> 01/07/24 1235 [place] Work Phone: [facility] general Narrative - Reported* Type Description Date Medical History Migrande headaches Surgical History Procedure:cyst removal;Disease: 1979 Surgical History Procedure:Tonsillectomy;Disease : 1992 Surgical History Procedure:laproscopic;Disease: 1999 Surgical History Procedure: section;Dise ase: 2004 Surgical History Procedure:gallbladder;Disease: 2005 Surgical History Procedure:Hysterectomy;Disease: 2005 Surgical History Procedure:shunt in head;Disease : 2009 Hospitalization History See [facility] Other History general Narrative - Reported* Type Description Date Medical History Migraine headaches Medical History Pseudotumor cerebri syndrome Medical History Transfusion history Surgical History Procedure:cyst removal;Disease: 1979 Surgical History Procedure:Tonsillectomy;Disease : 1992 Surgical History Procedure:laproscopic;Disease: 1999 Surgical History Procedure: section;Dise ase: 2004 Surgical History Procedure:gallbladder;Disease: 2005 Surgical History Procedure:Hysterectomy;Disease: 2005 Surgical History Procedure:shunt in head;Disease : 2009 Hospitalization History See [facility] Other Hispv[facility] general Narrative - Reported* Type Description Date [...] Left elbow surgery 07/2022 Hospitalization History See [facility] Other Hospital course Narrative No data available for this section [facility] Discharge instructions No data available for this section [facility] instructions[facility]ulatory Orders* Referral to Neurology Time Frame: 12/19/24, Location: None [facility] Work Phone: Progress note No data available for this section [facility]Reason for visit NarrativeReferral Dinesh Bobo Pseudotumor Cerebri SyndromeNort [employer] Other Reason for Referral Reason *FU 11/24 Papilled carlos and Visual Field Exams with DETAILED Interpretations and Reports Please Diagnosis 1 Pseudotumor cerebri (G93.2) Referral Organization [facility] uros[facility]gery Referring Provider First Name Seb Referring Provider Last Name Jeramie Referring Provider Specialty Neurologica l Surgery Referred Organization [facility] Referred Provider Robi Parada Referred Address [address] [place], [place],[address] Referred Provider Specialty Ophthalmolog y Referral Priority Routine General Notes Fore, Yvonne M 07:22:14 AM >Received and fax referral today Summary Purpose Family History Relationship Condition Age at Onset Recorded Date/T reneé father Unknown History of stroke Unknown Not [...] 0pm Major depressive disorder January 27 1:30pm Institute eye disease of both eyes January 10:38am [...] March 28, 2024 End: March 28, 2024 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 DATE CREATED AUTHOR AUTHOR'S ORGANIZ ATION 05/25/2024 [facility] DATE CREATED AUTHOR AUTHOR'S ORGANIZ ATION 07/28/2024 [facility] DATE CREATED AUTHOR AUTHOR'S ORGANIZ ATION 11/08/2024 [facility] REASON FOR VISIT (unrecogniz [...] or prosecute any alcohol or drug abuse patient.[facility] FOR RECORDS PERTAINING TO PATIENTS WHO [...] BE BASED ON THE PRIMARY CLINICAL RECORDS. [facility]. provides no warranty or guarantee of the accuracy or completeness of information in this document.
[2025-03-14 23:54] VITALS: PULSE 72; PULSE 75
[2025-03-14 23:56] VITALS: BP 108/71; PULSE 71; O2SAT 98
--- NOTE | 2025-03-14 23:59 | XR_ITS ---
The [address] [address] Patient Name: POORNIMA RIVERA MRN: [id number] date: 1975 Sex: F Assigned Patient Location: ER Current Patient Location: Accession/Order Number: [id number] Exam Date: 03/14/2025 23:59 Report Date: 03/15/2025 09:21 At the request of: NO NICHOLAS DO Procedure: XR chest 2V PA AND LATERAL CHEST: CLINICAL HISTORY: cough COMPARISON: 03/08/2025 FINDINGS: Cardiomegaly. Lungs are clear. No effusion or pneumothorax. DATA INTEGRITY CONSULTANT shunt catheter projects along the anterior chest wall. XR/XR chest 2V IMPRESSION: NO ACUTE CARDIOPULMONARY ABNORMALITY. Impression dictated by: Lisandro Glass M.D. 03/15/2025 9:21 AM Dictation Location: [place] [address] Electronically authenticated by: [id number] Date: 03/15/2025 09:21
--- NOTE | 2025-03-14 23:59 | ECG_ITS ---
[facility] Test Date: 2025-03-14 Pat Name: POORNIMA RIVERA Department: Room: - Gender: Female [employer]: : 1975 Requested By: [id number] Order Number: [id number] Reading MD: OTONIEL SUAREZ M.D. Measurements Intervals Gantt Rate: 72 P: 61 TX: 164 QRS: 71 QRSD: 74 T: 83 QT: 396 QTc: 419 Interpretive Statements 1100 Sinus rhythm 1102 Sinus arrhythmia 2420 RSR (QR) in lead V1/V2, consistent with right ventricular conduction delay 4068 Nonspecific Twave abnormality 9130 borderline ECG Compared to ECG 03/09/2025 07:39:07 Sinus bradycardia no longer present T-wave abnormality no longer present Electronically Signed On 03-15-2025 13:56:23 EDT by OTONIEL SUAREZ M.D.
[2025-03-15] VITALS (25 sets, daily range): BP systolic 97–121; BP diastolic 69–93; PULSE 62–82; O2SAT 93–98
[2025-03-15 00:41] LABS: Hematocrit 37.2 % (36.0-48.0); Hemoglobin 12.4 g/dL (12.0-16.0); Mean Corpuscular HGB Conc 33.3 g/dL (29.9-35.2); Mean Corpuscular Hemoglobin 29.3 pg (26.7-34.0); Mean Corpuscular Volume 87.9 fL (81.0-99.0); Platelet Count 343 10^3/uL (150-450); Red Blood Count 4.23 10^6/uL (4.20-5.40); White Blood Count 12.8 10^3/uL (4.0-11.0)
[2025-03-15 00:58] LABS: Anion Gap 11.9; Blood Urea Nitrogen 13.0 mg/dL (7.0-18.0); Calcium 8.9 mg/dL (8.5-10.1); Carbon Dioxide 26.0 mmol/L (21.0-32.0); Chloride 109 mmol/L (98-107); Estimated GFR (African America >60 (>=60 mL/min/1.73m^2); Estimated GFR (Non-African Ame >60 (>=60 mL/min/1.73m^2); Glucose 104 mg/dL (74-106); Potassium 3.9 mmol/L (3.5-5.1); Sodium 143 mmol/L (136-145)
--- NOTE | 2025-03-15 01:06 | ED_ITS ---
HPI HPI - General Adult General Chief complaint: Chest Pain Stated complaint: chest pain Time Seen by Provider: 03/14/25 23:56 Source: patient Mode of arrival: walk-in History of Present Illness HPI narrative: Patient is a 49-year-old female presenting to the emergency department via EMS for concerns of chest pain. Patient states she was watching football when she started experiencing left-sided chest pain. She states the pain rating to her left arm and left jaw. She states she took a nitroglycerin, which helped her symptoms. However, it left her with a headache. Patient stated her symptoms started about 1 hour prior to arrival. She states she has had similar pain like this during her recent hospitalization less than a few days ago. She states she had outpatient stress testing, but does not know the results of this. Related Data Home Medications ?Medication ?Instructions ?Recorded ?Confirmed buspirone 5 mg tablet 5 mg PO DAILY PRN anxiety 03/09/25 escitalopram oxalate 20 mg tablet 20 mg PO DAILY 03/0903/09/25 esomeprazole magnesium 20 mg 20 mg PO DAILY 03/09/25 0 03/09/25 capsule,delayed release (Nexium) trazodone 150 mg tablet 150 mg PO BEDTIME 03/09/25 0 03/09/25 ubrogepant 100 mg tablet (Ubrelvy) 100 mg PO DAILY PRN migraine 03/09/25 03/09/25 headache Previous Rx's ?Medication ?Instructions ?Recorded aspirin 81 mg tablet 81 mg PO DAILY #30 tabs 02/23 12/17 doxycycline monohydrate 100 mg 100 mg PO BID #12 caps 03/10/25 capsule nitroglycerin 0.4 mg sublingual 0.4 mg sublingual Q5M PRN chest 03/10/25 tablet pain #30 tabs Allergies Allergy/AdvReac Type Severity Reaction Status Date / Time Sulfa (Sulfonamide Allergy Severe Unknown Verified 03/14/25 23:52 Antibiotics) Opioid HPI Opioid Management Most Recent Opioid Data: Last Pain Scale 7 Today, 04:01 Last Pain Assessment 03/09/25, 02:58 Last ED Pain Assessment 03/09/25, 00:48 Last MAR Pain Assessment Today, 01:20 Last ORT Total Score 0 03/09/25, 02:12 Last ORT Risk Category Low Risk 03/09/25, 02:12 Review of Systems ROS Status of ROS 10 or more systems reviewed and unremark able except as noted in history and below PFSH [facility] Medical History (Updated 03/15/25 @ 01:08 by Nigel Samano DO) Anxiety ?F41.9 - Anxiety disorder, unspecified (ICD-10) Depression ?F32.A - Depression, unspecified (ICD-10) Surgical History (Updated 03/09/25 @ 02:58 by Maryse Vincent RN) H/O esophagogastroduodenoscopy ?Z98.890 - Other specified postprocedural states (ICD-10) History of colposcopy ?Z98.890 - Other specified postprocedural states (ICD-10) Hx of exploratory laparotomy ?Z98.890 - Other specified postprocedural states (ICD-10) Hx of cholecystectomy ?Z90.49 - Acquired absence of other specified parts of digestive tract (ICD- 10) History of tonsillectomy and adenoidectomy ?Z90.89 - Acquired absence of other organs (ICD-10) History of hysterectomy ?Z90.710 - Acquired absence of both cervix and uterus (ICD-10) Family History (Updated 03/09/25 @ 02:11 by Maryse Vincent RN) Mother Mitral valve prolapse Family history of cancer Sister Mitral valve prolapse Father Family history of stroke DVT (deep venous thrombosis) Social History (Updated 03/09/25 @ 02:12 by Maryse Vincent, [place]) Within the past year, how often did you have a drink containing alcohol: monthly or less Within the past year, how many standard drinks containing alcohol did you have on a typical day: 1 or 2 Within the past year, how often did you have six or more drinks on one occasion: never Total score: 0 Score interpretation: A score less than 3 is consistent with normal alcohol consumption. Smoking status: Current every day smoker Non-prescribed substance use: denies use Highest level of school completed/degree received: high school graduate Are you now , , , , never or living with a partner: Little interest or pleasure in doing things: not at all Feeling down, depressed, or hopeless: not at all Do you think of yourself as: straight/heterosexual Gender Identity: female Exam Narrative Exam Narrative: CONSTITUTIONAL: Patient appears anxious and holding an emesis bag with no vomit, answering questions and following commands appropriately SKIN: Was warm and dry. EYES: No conjunctival pallor. EARS, NOSE, THROAT: No JVD RESPIRATORY: Clear to auscultation bilaterally, no wheezes, crackles, or strid or, no use of accessory muscles CARDIOVASCULAR: Normal rate and regular rhythm. There is no S3, S4, murmur, rub. GASTROINTESTINAL: Abdomen was soft, non-tender, and non-distended. There is no guarding or rebound tenderness MUSCULOSKELETAL: There was no lower extremity edema, erythema, or tenderness. NEUROLOGIC: Patient is awake and alert. Facies were symmetrical. Constitutional Vital Signs, click to edit/add: Last Vital Signs Temp 97.9 F 03/14/25 23:52 Pulse 66 03/15/25 03:40 Resp 14 03/15/25 03:40 BP 101/69 03/15/25 03:30 Pulse Ox 95 03/15/25 03:40 O2 Del Method Room Air 03/14/25 23:52 Course Vital Signs Vital signs: Vital Signs Temperature 97.9 F 03/14/25 23:52 Pulse Rate 76 03/14/25 23:52 Respiratory Rate 20 03/14/25 23:52 Blood Pressure 108/71 03/14/25 23:52 Pulse Oximetry 97 03/14/25 23:52 Oxygen Delivery Method Room Air 03/14/25 23:52 Temperature 97.9 F 03/14/25 23:52 Pulse Rate 66 03/15/25 03:40 Respiratory Rate 14 03/15/25 03:40 Blood Pressure 101/69 03/15/25 03:30 Pulse Oximetry 95 03/15/25 03:40 Oxygen Delivery Method Room Air 03/14/25 23:52 Medical Decision Making MDM Narrative Medical decision making narrative: Patient is a 49-year-old female presenting to the emergency department for evaluation of chest pain beginning 1 hour prior to arrival. Vital signs on arrival are within normal limits. She is afebrile and hemodynamically stable. The patient is complaining of left-sided chest pain, which is improved since onset of her symptoms. She has a normal physical examination. On review of external documentation, patient was admitted to the hospital and discharged 5 days ago on 03/10/2025. At that time, she was admitted for workup of angina. She had a CT angiogram during that admission which was negative for PE or acute dissection. She had 3 troponin levels drawn, which were all undetectable. Given the patient's recent negative cardiac workup, and HEART score of only 2 points, I have low concern for ACS. However, an IV was established and laboratory studies were obtained including serial troponin levels. Other potential etiologies include pneumothorax, anxiety, musculoskeletal chest pain, or other electrolyte/metabolic derangement. She was given IV Zofran and oral Motrin for symptomatic treatment. 12 Lead EKG: Normal sinus rhythm at a rate of 72. Normal axis. No ST segment elevations. QRS, NV, and QTc interval within normal limits. Unchanged compared to prior EKG from 03/08/2025. Final impression: normal sinus rhythm without evidence of acute myocardial ischemia Laboratory studies were unremarkable. No significant electrolyte or metabolic derangement. No evidence of acute kidney injury. No anemia, leukocytosis, or thrombocytopenia. Initial and repeat 2-hour troponin were undetectable. Chest x-ray independently reviewed/interpreted by myself demonstrated no acute cardiopulmonary process. On reevaluation, patient's chest pain has improved. Given her recent negative cardiac workup and unremarkable EKG/negative serial troponins today, I have low concern for ACS. 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 Return prec autions were given including any new or concerning symptoms. Patient understands and agrees to the plan. FINAL IMPRESSION: #Acute chest pain DISPOSITION: Discharged home CONDITION: Good Medical Records Medical records reviewed: Yes I reviewed the patient's medical records Lab Data Lab results reviewed: Yes I reviewed the patient's lab results Labs: Lab Results 03/15/25 03/15/25 Range/Units 00:36 03:04 WBC 12.8 H (4.0-11.0) 10^3/uL RBC 4.23 (4.20-5.40) 10^6/uL Hgb 12.4 (12.0-16.0) g/dL Hct 37.2 (36.0-48.0) % MCV 87.9 (81.0-99.0) fL MCH 29.3 (26.7-34.0) pg MCHC 33.3 (29.9-35.2) g/dL RDW 13.5 (11.0-15.0) % Plt Count 343 (150-450) 10^3/uL MPV 9.3 L (9.5-13.5) fL Sodium 143 (136-145) mmol/L Potassium 3.9 (3.5-5.1) mmol/L Chloride 109 H (98-107) mmol/L Carbon Dioxide 26.0 (21.0-32.0) mmol/L Anion Gap 11.9 BUN 13.0 (7.0-18.0) mg/dL Creatinine 0.92 (0.55-1.02) mg/dL Est GFR ( Amer) >60 (>=60 mL/min/1.73m^2) Est GFR (Non-Af Amer) >60 (>=60 mL/min/1.73m^2) BUN/Creatinine Ratio 14.1 Glucose 104 (74-106) mg/dL Calcium 8.9 (8.5-10.1) mg/dL Troponin I High Sens <4.0 L <4.0 L (4.0-51.3) pg/mL Imaging Data Chest x-ray: Attestation: I personally reviewed and interpreted this imaging study as follows: ECG Data Attestation: I personally reviewed and interpreted this ECG as follows: Discharge Plan Discharge Chief Complaint: Chest Pain Clinical Impression: Chest pain Patient Disposition: Home, Self-Care Time of Disposition Decision: 03:41 Condition: Good Mode of Transportation: Private Vehicle Prescriptions / Home Meds: No Action buspirone 5 mg tablet 5 mg PO DAILY PRN (Reason: anxiety) trazodone 150 mg tablet 150 mg PO BEDTIME escitalopram oxalate 20 mg tablet 20 mg PO DAILY esomeprazole magnesium [Nexium] 20 mg capsule,delayed release(DR/EC) 20 mg PO DAILY Ubrelvy 100 mg tablet 100 mg PO DAILY PRN (Reason: migraine headache) doxycycline monohydrate 100 mg Capsule 100 mg PO BID Qty: 12 0RF aspirin 81 mg tablet 81 mg PO DAILY Qty: 30 1RF nitroglycerin 0.4 mg tablet, sublingual 0.4 mg sublingual Q5M PRN (Reason: chest pain) Qty: 30 0RF Rx Instructions: do not exceed 3 doses per episode Print Language: Welsh Instructions: Chest Pain (ED) Referrals: Birgit Baldwin MD [Primary Care Provider, Family Practice] - 1 week
[2025-03-15] MEDS: IBUPROFEN 400 MG TABLET 800 MG PO (01:20)
[2025-03-15] MEDS: KETOROLAC TROMETHAMINE 30 MG/ML VIAL 15 MG IVP (04:01)
== END 2025-03-15 04:05 | disposition home or self-care (01) ==
PROVIDERS: Emergency Provider Student in an Organized Health Care Education/Training Program; PCP Family Medicine
DX: R07.9 Chest pain, unspecified (principal)
CPT/HCPCS: 36415; 71046; 80048; 84484; 85027; 93005; 96374; 96375; 96376; 99285; J1885; J2405

== ENCOUNTER 2025-03-30 15:53 | Outpatient (OUT) | payer OTHER, SELFPAY ==
--- OUTSIDE RECORDS SUMMARY | 2025-03-30 15:58 | XMS_ITS | CCD ---
Author Organization [facility] Care Team Providers Care Bar Supervisor Name Role Phone JeramieSeb Unavailable DINESH BOBO Primary Care Physician [phone] JERAMIE, DR DINESH Franco Admitting Unavailable BOBO, DR DINESH Franco Attending Unavailable BOBO, DR DINESH Franco Primary Care Unavailable BOBO, DR DINESH Franco Consulting Unavailable ROBERT, ЕЛЕНА Consulting Unavailable BOBO, DR DINESH Franco Primary Care Unavailable NAWAF, GERMAINE Admitting Unavailable NAWAF, GERMAINE Attending Unavailable NAWAF, GERMAINE Consulting Unavailable BOBO, DR DINESH Franco Admitting Unavailable BOBO, DR DINESH Franco Attending Unavailable BOBO, DR DINESH Franco Primary Care Unavailable BOBO, DR DINESH Franco Admitting Unavailable BOBO, DR DINESH Franco Attending Unavailable BOBO, DR DINESH Franco Primary Care Unavailable ZIEBER, DR ROSANNE Devi Consulting Unavailable BOBO, DR DINESH Franco Consulting Unavailable BOBO, DR DINESH Franco Admitting Unavailable BOBO, DR DINESH Franco Attending Unavailable BOBO, DR DINESH Franco Primary Care Unavailable ZIEBER, DR ROSANNE Devi Consulting Unavailable BOBO, DR DINESH Franco Consulting Unavailable Dinesh Bobo Unavailable Reza Proctor Attending Unavailable Reza Proctor Referring Unavailable Reza Proctor Admitting Unavailable Reza Proctor Attending Unavailable Reza Proctor Referring Unavailable Reza Proctor A Admitting Unavailable Hitesh, Reza iDaz Attending Unavailable Reza Proctor Referring Unavailable Reza Proctor Admitting Unavailable MD Dinesh Bobo Primary Care Provider DO Imelda Jiang Attending Provider [phone] MD Dinesh Bobo Primary Care Provider [phone] DO Imelda Jiang Attending Provider Dinesh Bobo MD Primary Care Provider Dinesh Bobo MD Primary Care Provider Ly DO, Imelda L Attending Provider Ly, Imelda L Attending Unavailable Ly, Imelda L Admitting Unavailable Bobo, Dinesh E Primary Care Unavailable Ly, Imelda L Admitting Unavailable Ly, Imelda L Attending Unavailable Bobo, Dinesh E Primary Care Unavailable Ly, Imelda L Admitting Unavailable Ly, Imelda L Attending Unavailable Bobo, Dinesh E Primary Care Unavailable Ly, Imelda L Admitting Unavailable Ly, Imelda L Attending Unavailable Bobo, Dinesh Franco Primary Care Unavailable Dinesh Bobo MD Primary Care Provider Ly DO, Imelda Martinez Attending Provider Dinesh Bobo MD Attending Provider Tayla Vargas CMA Attending Provider Unavailabl Dinesh Garcia MD Primary Care Provider [phone] Ly DO, Imelda Martinez Attending Provider Dinesh Bobo MD Attending Provider [phone] Dinesh Bobo MD Primary Care Provider Jaylin Carrero APRN Attending Provider Dinesh Bobo MD Primary Care Provider Dinesh Bobo MD Attending Provider Germaine Núñez MD Attending Provider Imelda Robles CMA Attending Provider Unavaila ble Toan Camacho DO Attending Provider Nigel Samano DO Attending Provider VAN HERNANDEZ Attending Unavailable VAN HERNANDEZ Attending Unavailable Allergies Allergy Classification Reported Allergen(s) Allergy Type Date of Onset Reaction(s) Facility (20 sources) Sulfanilamide; Translations: [sulfanilamide] Drug Allergy 12-20-19 23 [facility] (4 sources) Sulfonamides (Antibiotic); Translations: [sulfa drugs] Drug allergy Respiratory failure [facility] (1 source) Sulfonamides (Antibiotic) Drug allergy (disorder) 12-03-19 13 [facility] (20 sources) cefdinir Drug Allergy 09-07-19 24 Unknown, [facility] (2 sources) Amoxicillin Drug Allergy 01-12-20 07 AMOXICILLIN [employer] Other (2 sources) Pseudoephedrine Drug Allergy Unknown [employer] Other (18 sources) sulfADIAZINE Drug Allergy 09-07-19 24 Comment:Sulfa [facility] (2 sources) Substance with sulfonamide structure and antibacterial mechanism of action (substance) Drug allergy 01-12-20 07 SULFA [employer] Other (2 sources) Allergies Reconciled Propensity to adverse reactions Unknown [employer] Other (2 sources) patient allergy list reviewed by nurse or physicia Propensity to adverse reactions 01-16-20 Comment:Done [employer] Other (2 sources) 12 Hour Decongestant Allergy to substance 09-05-19 [facility] (1 source) cefdinir Drug Allergy 10-15-19 [facility] (1 source) sulfADIAZINE Drug Allergy 10-15-19 [facility] Medications Current Medications Medication Drug [...] hrs Active aspirin 81 mg oral tablet (2 sources) Platelet Aggregation Inhibitor, Nonsteroidal Anti-inflammatory Drug Start: 03-11-2025 take 1 tablet by mouth once daily Aspirin 81 mg tablet Active 81 MG PO Daily March 11, 2025 12:00am Compl[facility] with drug therapy [facility] Start: 03-11-2025 take 1 tablet by mouth once daily Atogepant (Qulipta) 30 mg tablet Active 30 MG PO Daily March 11, 2025 12:00am Complies with drug therapy azithromycin 250 mg oral tablet (3 sources) Macrolide Antimicrobial Start: 08-16-2022 Azithromycin 250 MG as directed Orally 2 tabs po today, then 1 tab daily x 4 more days for 5 Jul, Active busPIRone hydrochloride 5 mg oral tablet (6 sources) Start: 01-27-2025 End: 02-24-2025 take 1 tablet by mouth twice daily as needed for anxiety Buspirone 5 mg tablet Active 5 MG PO Twice daily as needed for anxiety 60 February 24, 2025 1:47pm Complies with drug therapy docusate sodium 100 mg oral capsule (2 sources) Start: 08-18-2022 take 1 capsule by mouth twice daily as needed for constipation Colace 100 mg Cap 100 mg = 1 cap(s), Oral, BID, PRN for constipation, # 20 cap(s), Refills(s) 0, Pharmacy: [facility] 1155, 163, cm, 08/09/22 5:10:00 EST, Height/Length Dosing, 91.2, kg, 08/09/22 5:10:00 EST, Weight Dosing Start Date: 08/18/22 Status: Ordered esomeprazole 40 mg delayed release oral capsule (8 sources) Proton Pump Inhibitor Start: 08-08-2022 take 1 capsule by mouth once daily Nexium 40 mg Cap-EC 40 mg = 1 cap(s), Oral, Daily, Refills(s) 0, Gas Start Date: 08/08/22 Status: Ordered take 1 capsule by [facility] every twenty-four hours NexIUM 24HR 20 MG 1 capsule Orally Once a day Active fluconazole 150 mg oral tablet (4 sources) Azole Antifungal Start: 03-16-2025 Fluconazole 1 50 mg tablet Active 150 MG PO Q3D March 16, 2025 12:00am Complies with drug therapy Start: 08-21-2022 take 1 tablet by mouth once Fl uconazole 150 MG 1 tablet Orally once for 10 days Jul, Active ibuprofen 600 mg oral tablet (3 sources) Nonsteroidal Anti-inflammatory Drug Start: 08-18-2022 take 1 tablet by mouth every eight hours as needed for pain ibuprofen 600 mg Tab 600 mg = 1 tab(s), Oral, q8hr, PRN as needed for pain, with food or milk, # 50 tab(s), Refills(s) 0, Pharmacy: [facility] 1155, 163, cm, 08/09/22 5:10:00 EST, Height/Length Dosing, 91.2, kg, 08/09/22 5:10:00 EST, Weight Dosing Start Date: 08/18/22 Status: Ordered Start: 08-08-2022 take 1 tablet by meseret th every six hours as needed for pain ibuprofen 600 mg Tab 600 mg = 1 tab(s), Oral, q6hr, PRN as needed for pain, Refills(s) 0 Start Date: 08/08/22 Status: Ordered nitroglycerin 0.3 mg sublingual tablet (2 sources) Nitrate Vasodilator Start: 03-11-2025 Nitroglycerin 0.3 mg [...] 12:00am October 26, 2023 10:35am traZODone hydrochloride 150 mg oral tablet (20 [...] days Active ubrogepant 100 mg oral tablet (5 sources) Start: 12-22-2024 take 1 tablet by mouth once as needed for headache Ubrogepant (Ubrelvy) 100 mg tablet Active 100 MG PO Once as needed for migraine headache December 22, 2024 12:00am Complies with drug therapy Completed/Discontinued Medications Medication Drug Class(es) Dates Sig (Normalized) Sig (Original) acetaminophen 325 mg / HYDROcodone bitartrate 5 mg oral tablet (2 sources) Opioid Agonist Start: 08-18-2022 Arco 325 mg-5 mg oral tablet See Instructions, for pain, 40 tab(s), Refill(s) 0, 1-2 tab(s) Oral q4hr, [facility], 163, cm, 08/09/22 5:10:00 EST, Height/Length Dosing, 91.2, kg, 08/09/22 5:10:00 EST, Weight Dosing Start Date: 08/18/22 Status: Ordered [id number] 200 actuat albuterol 0.09 mg/actuat metered dose inhaler (11 sources) beta2-Adrenergic Agonist Start: 10-14-2024 End: 03-05-2025 take 1 puff(s) by inhalation every four to six hours as needed Albuterol Sulfate 90 mcg/actuation HFA aerosol inhaler Discontinued 2 PUFF INHALATION EVERY 4-6 HOURS as needed for bronchospasm 6.7 February 09, 2025 2:46pm March 05, 2025 8:53am benzonatate 200 mg oral capsule (8 sources) Non-narcotic Antitussive Start: 10-14-2024 End: 11-21-2024 Benzonatate 200 mg capsule Discontinued 200 MG PO 2-3 TIMES PER DAY as needed for cough October 14, 2024 12:00am November 21, 2024 10:57am cholestyramine resin 4000 mg powder for oral suspension (12 sources) Bile Acid Sequestrant Start: 11-06-2023 End: [...] dose colestipol hydrochloride 1000 mg oral tablet (11 sources) Bile Acid Sequestrant Start: 03-28-2024 End: 07-04-2024 Colestipol 1 gram tablet Discontinued 1 GM PO Twice daily 60 March 28, 2024 12:00am July 04, 2024 10:27am Cranberry Fruit (17 sources) Non-Standardized Food Allergenic Extract, Non-Standardized Plant Allergenic Extract Start: 10-08-2023 End: 03-16-2025 take 1 capsule by mouth once daily Cranberry Fruit 400 mg capsule Discontinued 400 MG PO Daily October 08, 2023 12:00am March 16, 2025 2:58pm administer with a meal Start: 10-08-2023 take 1 capsule by mo uth once daily Start: 10-08-2023 take 1 capsule [...] 0, Prophylaxis Start Date: 08/08/22 Status: Ordered doxycycline hyclate 100 mg oral tablet (8 sources) Tetracycline-class Drug Start: 10-14-2024 End: 11-21-2024 take 1 tablet by mouth twice daily Doxycycline Hyclate 100 mg tablet Discontinued 100 MG PO Twice daily October 14, 2024 12:00am November 21, 2024 10:57am escitalopram 20 mg oral tablet (20 sources) Serotonin Reuptake Inhibitor Start: 08-19-2024 End: 03-05-2025 take 1 tablet by mouth once daily Escitalopram Oxalate 20 mg tablet Discontinued 0 .ROUTE .COMPLEX 90 November 20, 2024 11:45am March 05, 2025 8:53am TAKE 1 TABLET [...] Once a day for 30 days Active famotidine 40 mg oral tablet (15 sources) Histamine-2 Receptor Antagonist Start: 10-03-2023 End: 05-30-2024 take 1 tablet by mouth once daily at bedtime Famotidine 40 mg tablet Discontinued 40 MG PO Daily at bedtime October 03, 2023 12:00am May 30, 2024 11:32am Multivitamin (Daily Multi-Vitamin) tablet (6 sources) Start: 12-19-2024 End: 03-16-2025 take 1 tablet by mouth once daily Multivitamin (Daily Multi-Vitamin) tablet Discontinued 1 TAB PO Daily December 19, 2024 12:00am March 16, 2025 2:59pm Start: 12-19-2024 take 1 tablet by meseret th once daily Start: 12-19-2024 take 1 tablet by meseret th once daily Multivitamin (Daily Multi-Vitamin) tablet Active 1 TAB PO Daily December 19, 2024 12:00am Complies with drug therapy polymyxin b [id number] unt/ml / trimethoprim 1 mg/ml ophthalmic solution (2 sources) Dihydrofolate Reductase Inhibitor Antibacterial, Polymyxin-class Antibacterial Start: 02-18-2025 End: 03-16-2025 Polymyxin B Sulf-Trimethoprim 10,000 unit- 1 mg/mL drops Discontinued 1 DROPS EYE-BOTH Every three hours 10 February 18, 2025 12:00am March 16, 2025 2:59pm while awake; do not exceed 6 doses in 24 hours rifAXIMin 550 mg oral tablet (20 sources) Rifamycin Antibacterial Start: 08-11-2024 End: 11-21-2024 take 1 tablet by mouth three times daily Rifaximin (Xifaxan) 550 mg tablet Discontinued 550 MG PO Three times daily 42 September 22, 2024 4:17pm November 21, 2024 11:10am Semaglutide (Weight Loss) (9 sources) Start: 01-27-2025 End: 03-16-2025 Semaglutide (Weight Loss) (Wegovy) 0.25 mg/0.5 mL pen injector Discontinued 0.25 MG SUBCUT every week 2 January 27, 2025 1:53pm March 16, 2025 2:59pm administer weeks 1 through 4 of therapy Start: 01-27-2025 Semaglutide (W eight Loss) (Wegovy) [...] 1 through 4 of therapy Start: 12-23-2024 SUMAtriptan 50 mg oral tablet (20 sources) Serotonin-1b and Serotonin-1d Receptor Agonist Start: 09-05-2023 End: 10-03-2023 take 1 tablet by mouth once daily as needed Sumatriptan Succinate 50 mg tablet Discontinued MG PO September 05, 2023 12:00am October 03, 2023 10:42am Free[employer]Sig: TAKE 1 TABLET BY MOUTH EVERY DAY NEEDED Oral; Note: Source Status: Not-Takingundefined PRN; Refills: 0; Qty: 9 Each; Provider: JERAMIE MONTIEL take 1 tablet by meseret th once daily as needed SUMAtriptan Succinate 50 MG TAKE 1 TABLE T BY MOUTH EVERY DAY NEEDED Oral for 9 Days Not-Taking/PRN Tirzepatide (Weight Loss) (7 sources) Start: 11-21-2024 End: 12-23-2024 Tirzepatide (Weight [...] Dysuria; Translations: [Dysuria] Episodic Headache; including migraine (16 sources) Migraine; Translations: [Migraine, unspecified, not intractable, without status migrainosus] Onset: 11-16-19 Resolved : 11-16-19 Chronic Headache; including migraine (14 sources) Headache; Translations: [Headache] Onset: 01-12-20 18 12-09-2024 Episodic Headache; including migraine (5 sources) Headache; including migraine Inflammation; infection of eye (except that caused by tuberculosis or sexually transmitteddisease) (4 sources) Bilateral conjunctivitis; Translations: [Other mucopurulent conjunctivitis, bilateral] 02-18-2025 Episodic Mood disorders (10 sources) Major depression, single episode; Translations: [Major depressive disorder, single episode, unspecified] Chronic Nonmalignant breast conditions (2 sources) Mastodynia; Translations: [Pain of left breast] 03-16-2025 Episodic Other circulatory disease (2 sources) Elevated blood-pressure [...] Episodic Other ear and sense organ disorders (15 sources) Lump in ear canal; Translations: [Other specified disorders of ear, unspecified ear] Episodic Other gastrointestinal disorders (11 sources) Irritable bowel syndrome with diarrhea; Translations: [Irritable bowel syndrome with diarrhea] 07-04-2024 Chronic Other gastrointestinal disorders (5 sources) Irritable bowel syndrome with diarrhea; Translations: [Irritable bowel syndrome] Onset: 11-08-1907-04-2024 Chronic Other gastrointestinal disorders (15 sources) Chronic constipation; Translations: [Other constipation] 10-03-2023 Episodic Other gastrointestinal disorders (3 sources) Other constipation; Translations: [Constipation, unspecified] 10-03-2023 Episodic Other gastrointestinal disorders (13 sources) Diarrhea; Translations: [Diarrhea, unspecified] 12-13-2023 Episodic [...] : 11-16-19 Chronic Other nervous system disorders (12 sources) Device in situ; 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] 12-09-2024 Chronic Other nervous system disorders (4 sources) Ventriculoperitoneal shunt in situ; Translations: [Presence [...] breast] 09-07-2023 Episodic Other upper respiratory infections (11 sources) Acute maxillary sinusitis; Translations: [Acute recurrent maxillary sinusitis] Onset: 09-20-19 16 10-17-2024 Episodic Otitis media and related conditions (10 sources) Otitis media, unspecified, right ear; Translations: [...] neoplasm of breast] Episodic Residual codes; unclassified (8 sources) Insomnia; Translations: [Insomnia, unspecified] Onset: 11-20-19 [...] to d ocumentation in Social History. Syncope (12 sources) Syncope and collapse; Translations: [Syncope and collapse] Onset: 07-27-1905-30-2024 Episodic Unclassified (3 sources) History of clinical finding in subject 08-08-2022 Unclassified (5 sources) H93.8X9 - Other specified disorders of [...] Test Name Value Interpretation Reference Range Facility Office Visiton 03-19-2025 Follow-up visit [id number] Chanda Barker 1975 Date Provider Department Center 03/19/2025 [id number] HERNANDEZ CARLY Curtis Family History Problem Relation Age of Onset Coronary artery disease Mother Stroke Father Family Status - Relation Status Age at Mother Alive Father Level of Service:95223 [place] OFFICE/OUTPATIENT ESTABLISHED MOD MDM 30 MIN Reason for Visit and Comments: Follow-up [205159] - Patient is here today for a follow up [facility] admission and stress test. Patient was in [facility] er on Sunday the for chest pain. Patient will be leaving to go on vacation Syncope [506] Fatigue [46] Shortness of Breath [528062] - LEE Dizziness [796476] - Lightheaded with position changes Palpitations [025628] - And racing heart Normal [facility] Orders Onlyon 03-16-2025 Orders Only [id number] Chanda Barker R 1975 Date Provider Department Center 03/16/2025 [id number], HISTORICAL CARLY Curtis Family History Problem Relation Age of Onset Coronary artery disease Mother Stroke Father Family Status - Relation Status Age at Mother Father Normal [facility] Erythrocyte distribution wid th Auto (RBC) [Ratio]Ordered By: Nigel Samano on 03-15-2025 Erythrocyte distribution width (RBC) [Ratio] 13.5 % 11.0-15.0 [facility] Glomerular filtration rate ( GFR) estimation in non- AmericanOrdered By: Nigel Samano on 03-15-2025 GFR/1.73 sq M.predicted among non-blacks MDRD (S/P/Bld) [Vol rate/Area] mL/min/{1.73_m2} >=60 mL/min/1.73 m 2 [facility] Hematocrit Auto (Bld) [Volum e fraction]Ordered By: Nigel Samano on 03-15-2025 Hematocrit (Bld) [Volume fraction] 37.2 % 36.0-48.0 [facility] Hemoglobin [Mass/volume] in BloodOrdered By: Nigel Samano on 03-15-2025 Hemoglobin (Bld) [Mass/Vol] 12.4 g/dL 12.0-16.0 [facility] Laboratory - Chemistry and C hemistry - challengeOrdered By: Nigel Samano on 03-15-2025 Calcium [Mass/Vol] 8.9 mg/dL 8.5-10.1 [facility] Chloride [Moles/Vol] 109 mmol/L High 98-107 [facility] CO2 [Moles/Vol] 26.0 mmol/L 21.0-32.0 [facility] Creatinine [Mass/Vol] 0.92 mg/dL 0.55-1.02 [facility] GFR/1.73 sq M.predicted MDRD (S/P/Bld) [Vol rate/Area] mL/min/{1.73_m2} >=60 mL/min/1.73 m 2 [facility] Glucose [Mass/Vol] 104 mg/dL 74-106 [facility] Potassium [Moles/Vol] 3.9 mmol/L 3.5-5.1 [facility] Sodium [Moles/Vol] 143 mmol/L 136-145 [facility] Urea nitrogen [Mass/Vol] 13.0 mg/dL 7.0-18.0 [facility] Urea nitrogen/Creatinine [Mass ratio] 14.1 mg/mg [facility] Leukocytes [#/volume] correc momo for nucleated erythrocytes in Blood by Automated counOrdered By: Nigel Samano on 03-15-2025 WBC corrected for nucl RBC Auto (Bld) [#/Vol] 12.8 10 3/uL High 4.0-11.0 [facility] MCH Auto (RBC) [Entitic mass ]Ordered By: Nigel Samano on 03-15-2025 MCH (RBC) [Entitic mass] 29.3 pg 26.7-34.0 [facility] MCHC Auto (RBC) [Mass/Vol]Or dered By: Nigel Samano on 03-15-2025 MCHC (RBC) [Mass/Vol] 33.3 g/dL 29.9-35.2 [facility] MCV Auto (RBC) [Entitic vol] Ordered By: Nigel Samano on 03-15-2025 MCV (RBC) [Entitic vol] 87.9 fL 81.0-99.[address] [facility] No Panel InformationOrdered By: Nigel Samano on 03-15-2025 Troponin I High Sensitivity <4.0 pg/mL Low 4.0-51.3 [facility] Comment on above: CUT-OFF POINTS HAVE [...] volume Auto (B ld) [Entitic vol]Ordered By: Nigel Samano on 03-15-2025 Platelet mean volume (Bld) [Entitic vol] 9.3 fL Low 9.5-13.5 [facility] Platelets Auto (Bld) [#/Vol] Ordered By: Nigel Samano on 03-15-2025 Platelets (Bld) [#/Vol] 343 10 3/uL 150-450 [facility] RBC Auto (Bld) [#/Vol]Ordere d By: Nigel Samano on 03-15-2025 RBC (Bld) [#/Vol] 4.23 10 6/uL 4.20-5.40 [facility] Serum or plasma anion gap de terminationOrdered By: Nigel Samano on 03-15-2025 Anion gap [Moles/Vol] 11.9 mmol/L Fi [facility] Cholesterol in LDL Calc [Mas s/Vol]Ordered By: Stanley Levi on 03-09-2025 Cholesterol in LDL [Mass/Vol] 94.0 mg/dL [facility] Comment on above: <100 mg/dl [id number] 0-129 mg/dl NEAR OR ABOVE [id number] mg/dl BORDERLINE [id number] mg/dl HIGH>190 mg/dl VERY HIGH Cholesterol in VLDL Calc [Ma ss/Vol]Ordered By: Stanley Levi on 03-09-2025 Cholesterol in VLDL [Mass/Vol] 42.0 mg/dL [facility] Erythrocyte distribution wid th Auto (RBC) [Ratio]Ordered By: Stanley Levi on 03-09-2025 Erythrocyte distribution width (RBC) [Ratio] 13.6 % 11.0-15.0 [facility] Globulin Calc (S) [Mass/Vol] Ordered By: Stanley Levi on 03-09-2025 Globulin (S) [Mass/Vol] 3.2 g/dL F [facility] Glomerular filtration rate ( GFR) estimation in non- AmericanOrdered By: Stanley Levi on 03-09-2025 GFR/1.73 sq M.predicted among non-blacks MDRD (S/P/Bld) [Vol rate/Area] mL/min/{1.73_m2} >=60 mL/min/1.73 m 2 [facility] Hematocrit Auto (Bld) [Volum e fraction]Ordered By: Stanley Levi on 03-09-2025 Hematocrit (Bld) [Volume fraction] 33.7 % Low 36.0-48.0 [facility] Hemoglobin [Mass/volume] in BloodOrdered By: Stanley Levi on 03-09-2025 Hemoglobin (Bld) [Mass/Vol] 11.2 g/dL Low 12.0-16.0 [facility] Laboratory - Chemistry and C hemistry - challengeOrdered By: Stanley Levi on 03-09-2025 Albumin [Mass/Vol] 2.8 g/dL Low 3.4-5.0 [facility] ALP [Catalytic activity/Vol] 64 U/L 46-116 [facility] ALT [Catalytic activity/Vol] 14 U/L 14-59 [facility] AST [Catalytic activity/Vol] 12 U/L Low 15-37 [facility] Bilirubin [Mass/Vol] 0.2 mg/dL 0.2-1.0 [facility] Calcium [Mass/Vol] 8.3 mg/dL Low 8.5-10.1 [facility] Chloride [Moles/Vol] 108 mmol/L High 98-107 [facility] Cholesterol [Mass/Vol] 178 mg/dL <=200 [facility] Cholesterol in HDL [Mass/Vol] 42 mg/dL 40-60 [facility] Comment on above: > or =60 mg/dl - LOW CARDIOVASCULAR RISK<40 mg/dl - HIGH CARDIOVASCULAR RISK CO2 [Moles/Vol] 26.8 mmol/L 21.0-32.0 [facility] Creatinine [Mass/Vol] 0.89 mg/dL 0.55-1.02 [facility] GFR/1.73 sq M.predicted MDRD (S/P/Bld) [Vol rate/Area] mL/min/{1.73_m2} >=60 mL/min/1.73 m 2 [facility] Glucose [Mass/Vol] 95 mg/dL 74-106 [facility] Potassium [Moles/Vol] 3.8 mmol/L 3.5-5.1 [facility] Protein [Mass/Vol] 6.0 g/dL Low 6.4-8.2 [facility] Sodium [Moles/Vol] 144 mmol/L 136-145 [facility] Triglyceride [Mass/Vol] 210 mg/dL High <=150 F [facility] Urea nitrogen [Mass/Vol] 16.0 mg/dL 7.0-18.0 [facility] Urea nitrogen/Creatinine [Mass ratio] 18.0 mg/mg [facility] Leukocytes [#/volume] correc momo for nucleated erythrocytes in Blood by Automated counOrdered By: Stanley Levi on 03-09-2025 WBC corrected for nucl RBC Auto (Bld) [#/Vol] 9.8 10 3/uL 4.0-11.0 [facility] MCH Auto (RBC) [Entitic mass ]Ordered By: Stanley Levi on 03-09-2025 MCH (RBC) [Entitic mass] 29.2 pg 26.7-34.0 [facility] MCHC Auto (RBC) [Mass/Vol]Or dered By: Stanley Levi on 03-09-2025 MCHC (RBC) [Mass/Vol] 33.2 g/dL 29.9-35.2 [facility] MCV Auto (RBC) [Entitic vol] Ordered By: Stanley Levi on 03-09-2025 MCV (RBC) [Entitic vol] 87.8 fL 81.0-99.[address] [facility] No Panel InformationOrdered By: Stanley Levi on 03-09-2025 Bedside Influenza Type A Antigen Negative [facility] Comment on above: Negative for Flu A p rotein antigen. Infection due to Flu Acannot be ruled out. Flu A antigen in the sample may bebelow the detection limit of the test. Bedside Influenza Type B Antigen Negative [facility] Comment on above: Negative for Flu B p rotein antigen. Infection due to Flu Bcannot be ruled out. Flu B antigen in the sample may bebelow the detection limit of the test. C-Reactive Protein, Quantitative <0.50 mg/dL <=0.50 [facility] Troponin I High Sensitivity <4.0 pg/mL Low 4.0-51.3 [facility] Comment on above: CUT-OFF POINTS HAVE [...] (Bld) [Entitic vol] 9.3 fL Low 9.5-13.5 [facility] Platelets Auto (Bld) [#/Vol] Ordered By: Stanley Levi on 03-09-2025 Platelets (Bld) [#/Vol] 281 10 3/uL 150-450 [facility] RBC Auto (Bld) [#/Vol]Ordere d By: Stanley Levi on 03-09-2025 RBC (Bld) [#/Vol] 3.84 10 6/uL Low 4.20-5.40 [facility] Serum or plasma albumin/glob ulin mass ratioOrdered By: Stanley Levi on 03-09-2025 Albumin/Globulin [Mass ratio] 0.9 {ratio} [facility] Serum or plasma anion gap de terminationOrdered By: Stanley Levi on 03-09-2025 Anion gap [Moles/Vol] 13.0 mmol/L [facility] Serum or plasma total choles terol/high density lipoprotein (HDL) cholesterol mass ratOrdered By: Stanley Levi on 03-09-2025 Cholesterol.total/[place] sterol in HDL [Mass ratio] 4.2 {ratio} [facility] Comment on above: 3.3 - 4.4 LOW RISK4. 4 - 7.1 AVERAGE RISK7.1 - 11.0 MODERATE RISK>11.0 HIGH RISK Basophils Auto (Bld) [#/Vol] Ordered By: Germaine Núñez on 03-08-2025 Basophils (Bld) [#/Vol] 0.1 10 3/uL 0.0-0.1 [facility] Basophils/100 WBC Auto (Bld) Ordered By: Germaine Núñez on 03-08-2025 Basophils/100 WBC (Bld) 0.7 % 0.2-2.[address] [facility] Eosinophils/100 WBC Auto (Bl d)Ordered By: Germaine Núñez on 03-08-2025 Eosinophils/100 WBC (Bld) 2.2 % 0.9-7.0 [facility] Erythrocyte distribution wid th Auto (RBC) [Ratio]Ordered By: Germaine Núñez on 03-08-2025 Erythrocyte distribution width (RBC) [Ratio] 13.3 % 11.0-15.0 [facility] Fibrin D-dimer [Presence] in Platelet poor plasma by Latex agglutinationOrdered By: Germaine Núñez on 03-08-2025 Fibrin D-dimer LA Ql (PPP) 0.63 mg/L FEU Critically high <=0.59 [facility] Comment on above: RESULTS CALLED TO HANNAH BAUER RN @BY Jennifer Tolliver at [phone] in D-Dimer concentration observed withthromboembolic events can [...] 50 mL/min/{1.73_m2} Low >=60 mL/min/1.73 m 2 [facility] Hematocrit Auto (Bld) [Volum e fraction]Ordered By: Germaine Núñez on 03-08-2025 Hematocrit (Bld) [Volume fraction] 38.3 % 36.0-48.0 [facility] Hemoglobin [Mass/volume] in BloodOrdered By: Germaine Núñez on 03-08-2025 Hemoglobin (Bld) [Mass/Vol] 12.8 g/dL 12.0-16.0 [facility] Laboratory - Chemistry and C hemistry - challengeOrdered By: Germaine Núñez on 03-08-2025 Calcium [Mass/Vol] 8.8 mg/dL 8.5-10.1 [facility] Chloride [Moles/Vol] 109 mmol/L High 98-107 [facility] CO2 [Moles/Vol] 21.0 mmol/L 21.0-32.0 [facility] Creatinine [Mass/Vol] 1.15 mg/dL High 0.55-1.02 [facility] GFR/1.73 sq M.predicted MDRD (S/P/Bld) [Vol rate/Area] mL/min/{1.73_m2} >=60 mL/min/1.73 m 2 [facility] Glucose [Mass/Vol] 129 mg/dL High 74-106 [facility] Natriuretic peptide B (Bld) [Mass/Vol] 63.0 pg/mL <=900.0 [facility] Potassium [Moles/Vol] 3.7 mmol/L 3.5-5.1 [facility] Sodium [Moles/Vol] 145 mmol/L 136-145 [facility] Urea nitrogen [Mass/Vol] 16.0 mg/dL 7.0-18.0 [facility] Urea nitrogen/Creatinine [Mass ratio] 13.9 mg/mg [facility] Laboratory - Hematology and Cell countsOrdered By: Germaine Núñez on 03-08-2025 Immature granulocytes/100 WBC (Bld) 0.5 % 0.0-0.5 [facility] Leukocytes [#/volume] correc momo for nucleated erythrocytes in Blood by Automated counOrdered By: Germaine Núñez on 03-08-2025 WBC corrected for nucl RBC Auto (Bld) [#/Vol] 13.0 10 3/uL High 4.0-11.0 [facility] Lymphocytes Auto (Bld) [#/Vo l]Ordered By: Germaine Núñez on 03-08-2025 Lymphocytes (Bld) [#/Vol] 2.8 10 3/uL 1.2-3.8 [facility] Lymphocytes/100 WBC Auto (Bl d)Ordered By: Germaine Núñez on 03-08-2025 Lymphocytes/100 WBC (Bld) 21.7 % 20.5-60.0 [facility] MCH Auto (RBC) [Entitic mass ]Ordered By: Germaine Núñez on 03-08-2025 MCH (RBC) [Entitic mass] 29.2 pg 26.7-34.0 [facility] MCHC Auto (RBC) [Mass/Vol]Or dered By: Germaine Núñez on 03-08-2025 MCHC (RBC) [Mass/Vol] 33.4 g/dL 29.9-35.2 [facility] MCV Auto (RBC) [Entitic vol] Ordered By: Germaine Núñez on 03-08-2025 MCV (RBC) [Entitic vol] 87.4 fL 81.0-99.0 [facility] Monocytes Auto (Bld) [#/Vol] Ordered By: Germaine Núñez on 03-08-2025 Monocytes (Bld) [#/Vol] 0.8 10 3/uL 0.3-0.8 [facility] Monocytes/100 WBC Auto (Bld) Ordered By: Germaine Núñez on 03-08-2025 Monocytes/100 WBC (Bld) 6.0 % 1.7-12.0 [facility] Neutrophils Auto (Bld) [#/Vo l]Ordered By: Germaine Núñez on 03-08-2025 Neutrophils (Bld) [#/Vol] 9.0 10 3/uL High 1.4-6.5 [facility] Neutrophils/100 WBC Auto (Bl d)Ordered By: Germaine Núñez on 03-08-2025 Neutrophils/100 WBC (Bld) 68.9 % 43.0-75.0 [facility] No Panel InformationOrdered By: Germaine Núñez on 03-08-2025 Eosinophils # (Auto) 0.3 10 3/uL 0.0-0.7 [facility] Immature Granulocyte # (Auto) 0.06 10 3/uL High 0.00-0.03 [facility] Troponin I High Sensitivity <4.0 pg/mL Low 4.0-51.3 [facility] Comment on above: CUT-OFF POINTS HAVE [...] volume (Bld) [Entitic vol] 9.5 fL 9.5-13.5 [facility] Platelets Auto (Bld) [#/Vol] Ordered By: Germaine Núñez on 03-08-2025 Platelets (Bld) [#/Vol] 353 10 3/uL 150-450 [facility] RBC Auto (Bld) [#/Vol]Ordere d By: Germaine Núñez on 03-08-2025 RBC (Bld) [#/Vol] 4.38 10 6/uL 4.20-5.40 [facility] Serum or plasma anion gap de terminationOrdered By: Germaine Núñez on 03-08-2025 Anion gap [Moles/Vol] 18.7 mmol/L [facility] CT enterographyon 11-07-2024 CT enterography [facility] Main [facility] [address] [place] [address] CT Scan Report Signed Patient: Poornima Barker MR#: [id number] 745 : 1975 Acct:[id number] Age/Sex: 49 / F ADM Date: 11/07/24 Loc: CT Room: Type: [facility] Attending Dr: Imelda Jiang DO [...] unremarkable. Uterus has been removed.] Peritoneum/Retroperiton eum:The SLIP OPERATOR shunt tubing is seen coiled within the pelvis. Trace free fluid seen within the pelvis. No free air or lymphadenopathy.[ Abd wall/Bones:No acute findings. Osseous structures demonstrate degenerative change. No sacroiliitis.[ CT/CT enterography IMPRESSION: No CT evidence of small bowel abnormality. Hepatic steatosis. Impression dictated by: Oscar Roper Jr., D.O. 11/07/2024 10:07 AM Dictation Location: [place] [address] Transcribed By: [facility] 11/07/24 1007 Dictated By: Oscar Roper Jr, DO 11/07/24 1005 Signed By: 11/07/24 1007 Normal [facility] Physician [facility] Calprotectin [Mass/mass] in StoolOrdered By: Imelda Jiang on 10-03-2024 Calprotectin (Stl) [Mass/Mass] Calprotectin [Mass/mass] in Stool 0-120 [facility] Comment on above: Concentration Interp retation Follow-Up< 5 - 50 ug/g Normal None>50 -120 ug/g Borderline Re-evaluate in 4-6 weeks >120 ug/g Abnormal Repeat as clinically indicatedPerformed at: [employer] [id number] Director: Dasha Lowery MD, Phone: [phone] Calprotectin (Stl) [Mass/Mass] 65 ug/g 0-120 [facility] Comment on above: Concentration Interp retation Follow-Up< 5 - 50 ug/g Normal None>50 -120 ug/g Borderline Re-evaluate in 4-6 weeks >120 ug/g Abnormal Repeat as clinically indicatedPerformed at: [facility] [employer] [id number] Director: Dasha Lowery MD, Phone: [phone] Calprotectin, Fecalon 2024 Calprotectin, Fecal 65 Normal 0-120 [facility] Comment on above: Result Comment: Conc entration Interpretation Follow-Up < 5 - 50 ug/g Normal None >50 -120 ug/g Borderline Re-evaluate in 4-6 weeks >120 ug/g Abnormal Repeat as clinically indicated Performed at: [facility] [id number] [employer] Manager: Dasha Lowery MD, Phone: [phone] PERFORMED BY: [address] [address] PATHOLOGIST ROUGE SIFTER RODNEY QUEZADA M.D. Performed By: #### C ALPROTECT #### [facility] , Laboratory - Chemistry and C hemistry - challengeon 07-26-2024 TSH Qn 1.781 m[IU]/L 0.358-3.740 [facility] Office Visiton 07-25-2024 Follow-up visit [id number] Chanda aBrker 1975 F Date Provider Department Center 07/25/2024 34490-MOVPNVVAN HERNANDEZ CARLY Curtis Family History Problem Relation Age of Onset Coronary artery disease Mother Stroke Father Family Status - Relation Status Age at Mother Father Level of Service:49396 [place] OFFICE/OUTPATIENT NEW MODERATE MDM 45 MINUTES Reason for Visit and Comments: Syncope [506] - Had syncopal episode back in Apr 2024. Echo was performed a few weeks ago. She did not feel chest pain, SOB, or palpitations. Dizziness [744504] Normal [facility] Pancreatic Elastase, Stoolon 03-28-2024 Pancreatic Elastase, Stool 612 Normal >200 [facility] Comment on above: Result Comment: Resu lt Units: ug Elast./g Severe Pancreatic Insufficiency: <100 Moderate Pancreatic Insufficiency: 100 - 200 Normal: >200 Performed at: [facility] [id number] [employer] Manager: Dasha Lowery MD, Phone: [phone] PERFORMED BY: [address] [address] PATHOLOGIST ROUGE SIFTER SHAW ANGELO M.D. Performed By: #### E LASTASE STOOL #### [facility] , XR KUBon 03-28-2024 XR KUB [facility] Main [address] [address] XRay Report Signed Patient: Poornima Barker MR#: [id number] 745 : 1975 Acct:[id number] Age/Sex: 48 / F ADM Date: 03/28/24 Loc: XD Room: Type: [facility] Attending Dr: Imelda Jiang DO [...] John Love M.D.03/28/2024 11:37 AM Dictation Location: [place] [address] Transcribed By: [facility] 03/28/24 113 Dictated By: John Love II, MD 03/28/24 113 Signed By: 03/28/24 113 [facility] 01-07-2024 L Specimen: [id number] Received: 01/07/24 Status: RACHEL Polanco Num: [id number] Spec Type: Surgical Subm Dr: Imelda Jiang DO Tissues: A Colon Biopsy (RANDOM COLON BX R/O MICROSCO) Procedures: HE/2, Gross/Micro L4 Age/ Patient Sex Location Account Attending Physician Poornima Barker 48/F [id number] Imelda Jiang DO SPEC NUM: [id number] RECD: 01/07/24 STATUS: RACHEL POLANCO NUM: [id number] IDALIA: 01/07/24-[address]: Imelda Jiang DO [...] cm, entirely submitted in A1. CPT Codes 50368 Specimen: [id number] Received: 01/07/24 Status: RACHEL Polanco Num: [id number] Spec Type: Surgical Subm Dr: Imelda Jiang DO Tissues: A Colon Biopsy (RANDOM COLON BX R/O MICROSCO) Procedures: KAYLYNN, Gross/Micro L4 Patient: Poornima Barker [id number] (Continued) Signed (signature on file) Jeremiah Potts MD 01/09/24 1542 Normal [facility] Elastase.pancreatic [Mass/ma ss] in Stoolon 11-07-2023 Elastase.pancreatic (Stl) [Mass/Mass] 232 >200 [facility] Comment on above: Result Units: ug [address] st./g Severe Pancreatic Insufficiency: <100 Moderate Pancreatic Insufficiency: 100 - 200 Normal: >200Performed at: - [facility] [address] [id number] Director: Dasha Lowery MD, Phone: [phone] No Panel Informationon 11-06 Clostridium difficile (PCR)(LAB) Negative NEGATIVE [facility] Miscellaneous Test Comment See comment [facility] Comment on above: Specimen Source: ST - Stool - Stool - 700.100 Stool Campylobacter Culture Res 1 See comment [facility] Comment on above: [facility], No Panel InformationOrdered By: Dinesh Bobo on 11-07-2023 E coli Shiga Toxin EIA [facility] Salmonella/Shigella Screen [facility] Nonvisit Note - OTon 023 Nonvisit Note - OT , pt cxl'd in remind system, no reason available. Normal [facility] Nonvisit Note - OTon 023 Nonvisit Note - OT pt cxl'd in remind system, no reason available. Normal [facility] Nonvisit Note - OTon 023 Nonvisit Note - OT Pt. cx, d/t an emergency. Normal [facility] OT - Home Exercise Programon 11-08-2022 OT - Home Exercise Program [id number]#1.00 CD:127 Normal [facility] OT - Progress Noteson 2022 OT - Progress Notes [id number] [id number]#1.00 CD:127 [facility] OT - Orderson 10-20-2022 OT - Orders [id number] [id number]#1.00 CD:127 [facility] OT - Assessmentson OT - Assessments [id number]#1.00C D:127 [facility] OT - Consentson 10-19-2022 OT - Consents [id number] 427 [id number]#1.00C D:127 [facility] OT - Home Exercise Programon 10-19-2022 OT - Home Exercise Program [id number]#1.00C D:127 [facility] Coding Summary.on 10-12-2022 Coding Summary. CD:[id number] Ww+ PGhlYWQ+JI3FBMFkS01hiZH opZ7zK1AWHKbCYaqhVCBZBE rEEmTjywFzLV2kgNIfDMAo IC8+ZT6eEHSkCdqsaJVnd9X 5rCJ2S55emp5jCAkhzPP4PX EgVkSflnpsh8awqSk7JOhqE mluOyBt SRMuyQ73NZR3oX60Io07lHN vjVEtz0eonUh8VrSfFKPoCV T0zTyhKXowl5GeMFRiG51jb LXzh3P2 CZTnnYagrUGwFuDyjTL8rI7 kBDyvksqbk1fetnetGre3jl 60eRRcj6A7hET3F9WhnqN0F GJvbGQg PlnaoMFGaP3fwplvp6wlpjh vOxTpQSPcXEt4UEy4RFSvuC hsEsNmDE88EKG5RJIswdTvU 2FsLWFs uBnpJrT8u0W3Ze7NQ6VDXjs bD0QYDOIZMBybsHD+PC90cj 00X2BgBpuvXpf0JAZiRVQ6g BA9jF5o SQRsNUdvh5F9xGB2B0VpyoL uct4ip0ejKTFjNCzhG51pnL Dov1V5EIXltPT6LYEnqBqeS iBzaG93 Oyc+XSEpwTbhv5FxLrspp4o jk4uwnUr6FhufFORkilEczG ozPZM3g4OlKa7nOTRhvTJ4k UJ6pC5j RrJaKgN2GMdaL729TwEizGL iKqioJ14zG5ZnlYT+PHRyPj c9LKQqzHhgLJ8iX7WqSZMub mctbGVm xJwhBF7rISCqwkikTZUjyU6 zGDOoP8f5FhDmDfM1ENgiD0 HzNLVifcwnRc18cF7yRsUhE qG8GFfz U3RuexK9ZOMqmOPdVMhbBKZ 3K86xc9R8ZFPzSRKjLVC3lF Y0kO5laPwrcwtifTXwuQtgj mVydGlj NBvyVBzzK392ROAbdCpjPhC vZGluZyBEYXRlOiAgMDQvMj AvMjAyMzwvdGQ+ZQYqJEC4b WxlPSAn iURzOPgoRv0vzAdrsRbzUH7 xTMOqtwnvXEGjbS2pISBmsD NvtPjkTP8xDEFuqpeex028Y iAxMHB0 EFFobSGbB7HcgT3cMgCbUXT eUTWzU5HzeFZtOFqaN990IW asIiY6ZQShguNtI9DjBUVqs WduOiB0 z9B2Ts9Gs5DzyhjsK9GjxTD aOlQcQmirNZv7W6DoLuwgkN I+XK22IATbXM76QBg4BEJ8g WxlPSdi FIAdD0EwxZ4eEuHcWFDwYOK kOyc+PHRhYmxlIHdpZHRoPS dcCEDxEsCqmJdnRJ5lIm8kG GVyLWNv yMyqpRAoGfCps2dxDMSfYNp iCC5jiSogS8QehQI9EHEfq5 x3Za45M51dS3LnwKS+PGNvb ZX5bOF9 vO2nNpYmZbA1WEvoB418QyL rrFErUnoae4mhl7lorSg1Ey G1LUSdgxXuaOmaYKC1v6YnK i71P17f IHdpZHRoPSIxNSUiIHZhbGl zge3koP7iIx7+RQBzdZP9mI X8hY2rJlJrCqS6DNxqF507T nRvcCIv Bnbxg4mxk8dpoQk8XaSaXIJ bwnApqXbjVWH1e2JjFk69L3 SkvKpyh5DaYvc8ar44bJNxh 6K9uWI9 Y1AbTAZzrwmopGEviUwwJN0 eBHAibtwtPYBddN1yIKWbX1 c9VkQhCjL9MNbyR7NcvkG5M GJvbGQg AADwuDOXyP9yaokjy5yiipg wDzEeZHJeCOg2LOi2UHVcrW maMyQkMFH7AoF2CQT3aZLdt R6mfDmd yxqnmT1vFbl+YDU4cRNexWF NGS2sWnuqoLC+BUSiONK1bC fqTIgvIDQqyC7fPUPsL3i2H iAwLjA1 QOxkD4YaewX0HVIrpKBhGTA qpRQPpH5ipnkow5jqmtbgVi TfESDqNQy3WWg5XAQcuBqaW iBsZWZ0 WlE4GYJ4oMVhaB8prZvlezd vuJ2iZqs+RiqqlMupNGH7SA e4C3PkXmg9KWIpoYhsHB0uk GFkZGlu Ye6jzPtvnXabLK0zXPChdzh mq571ZbQql5olLRPofGZlNS gqGJG4C57fw7L2GMSmUIFdT SB1hVP2 wM6idWfvceeywNFtwNxoshO ifGlpQRmcZYrsM200GIDwqQ ewFpVjNIe1L7QgOsp8HBAap VrdUD2j nLBiNCfnKv5dvOeqsNfqGT3 aDXSjyyamr583OoGnc4riOL KdmVEvSPjdAWR6Y28pc6V8D CMwMDAw ZKY3aUL6wN4swJehwrfncJJ mdDsgdmVydGljYWwtYWxpZ2 64BSQbkQlaCvSfpTs3R8SeB ew6XLBr pYlbZH3wjVTzBSoiBw6iqKk wuZuwZG9pJGLuvomji893Di Vlc3agWUGydZFeZYixNPY8Z 51rn3R6 YMZdMBLbXYJ8lBJ5hX9ihWq nbjogbGVmdDsgdmVydGljYW oyJGvlP530ZZLsbMjcDhSdg GllbnQg JAtbZBz0Y1GtFbywyCE+PC9 1VZIgKD78yWCfjUQad4tqgM s5RxPdHYWdHEQ6gGssRVqow 3JkZXIt P23huHTrg2I9WMIgnGncgKU qKuLesFX3tL6jYBziuaqyl9 bafrphYbtue7dxwv42zA31T 29sIHdp ZHRoPSIzMCUiIHZhbGlnbj0 gjU8wEi7+DVOszCZ7lQG3pE 9kKEHtVrL3OLavM094AnEwz CIvPjxj m1fwb2nwxHb9GoA1QBGhedU yqEbrLXU9c8ChOr90M55tGV dpZHRoPSIyMCUiIHZhbGlnb a1tyJ2c Ii8+LEDwpWZ4qRP4tY2rBtT hXuA4CQyuT168VbDwvLCfWq jqD85gO9XntPP+DPHbCup7X CBzdHls GX2lyHKcSYrxNb5wGGO1WfS iRhDbQMpyP5YkNPMgobftuk fxcKW4OJQbYRVjbT20Mu5hh DogMTBw rJZCqI3rxguik2tpnxaxBwC vXEEyTQc9KRj0OVHhtCcnSl FvBUI6EgP3QEJ1bLQeoA3xh Glnbjog vN4mO9IrNXEvleeqHj00aI1 iKiQcQbX7GJepCfw+VkVJVE tqTLYCOLGVECb3Q5PzSud2X CBzdHls BT5pyFWoMKzuWs4imHyyuCq fKF9bVUPtxvnyKEEuwX6lMG ActJZdjAgfZA5wIERdzhinz 250OiAx LQW1FSZzzPCrA7UbnO0nXdY uRQDxRBMmK7NbmCGwZRtjP1 19YTszJuN6TNLhszBrC9MdN WFsaWdu GdN3g6Y8Lo5gXg9dJD8cGPh 1TG63IF75jVUxb0N3eMS1Q9 BoBRTcgmbhxvzxnPQ4NFScN DUwaW47 nBSjQGgqDm5pa5I2f132OIV uGCMzfP82Po0mgYppBGKszW LNdX2wtwuww5mnpvqbTtOhA DAwMDt0 XMm2ZQLjmTmpAiStVXV4WwY 8UKL8qDJjrZ6oeEadgdigsI 9wOyc+JSvqOSGpthG3I3KeI mn4ZWDb kMouRL0srUVhKFsnAc0gfWa oiDmpJC1fLGLafaqxFEUmjK 3wLFKbnRTxtSfjHU4kDANgx xsjc942 YaVwXGW5XZUvaIWrT2TpvT2 dDeGzVIIdDFVjH6PhdZLdOD ztR778EImyHwQ8GTPwifWyM 2FsLWFs zBpnSdW3l7S7Yq2BVB9nsCS 5M8DkSnk7KMEtdZmtEC5otS FxGFpfOd3osHqjxJfrAE6iO TBpbjtw BLKcdN4iJBDkdUSetOauPZ7 wCQHfrvoxz725GpAxITW5UT PiwEHjI0VvcJ1nQuQbMYVfU TXjW5Sk qGYwYYxvX004ZBcdRlE5TRJ ezyFrS4HrEHGsfRanAjP4d0 U8Bc0ZJLU1uwBogvs8O5OaM jwvdHI+ GO65BVIfAM29rNDonFUxn6s mbQn0OfFuTGPwFWS4hXoaIL vvx6NcVAHhH05osUMwv8N1B GNvbGxh pUNbNkOaiJF6jJ7xPJrqjab el2rpogciGjxyb6bcfx70gC 52J73tVPzbSSMdYKFaWTVnV HZhbGln kp2bvK0dYi8+ARHwnOY2tDQ 6nM0sEeXoKdH1HIwhG502Kf RgaFCbSwzku1btb6zraQk1X jIwJSIg jrBdwGnpCUM3o3TzRy75N10 sIHdpZHRoPSIyMCUiIHZhbG uuyi3khR3dTg8+RL5gc7old d39wR70 dHI+TQXtKBN1lAfbRMghSFY zlL3uQDgyJjR2BHRvFpLxnD 04jLFfFApuLc6tiApxjHjcT L1xURPj zqpqy195JkVtr9wvQKUlePK lEKncLJO7R22tm6K7YRFbWR IaGJJ2eOK6tU1zuJuvaxqpo GVmdDsg goLitFvlOIbvAAvvP822TYC hkVxuCoKjcORgD1bwagZKRF 1lOjwvdGQ+OBXfJAP3uTniH SdwYWRk jE4uAAIiR9g7AkIhBxN1IUh pF1FwddA2RQYutTBtUDMzaR YFrG4ayidpd0ldianmDtFhQ DAwMDt0 SCe3QKSozSqdFbYeNZN2XrD 5GJG7sXFtuA8hwUofdskfgC 9wOyc+RklOOjwvdGQ+PHRkI KK1jJnu EFnqVUWooM2jZERpC7m4AdS sPaA0MCpfK4SkluA0UFTfzK LpSNYqiUAOlV1ukbfnk4tgg jogIzAw WFHmXLd8FGx7PJIyjTwcLsC uCXI7UdM8HJQ2mPKcsX2inT smyfzpeJ7jCzs+TVJOOjwvd GQ+PHRk AHE8sEdwIGpxMAGwrN6eAHM zI4j0BaRoUyM0WFctZ9Ghnb T3PFZtqJYjWCKkbBDPfH0qt wccg7hw zsslWcQfMFGbXEz5SKy2SOQ odVrzWhQyMDA8MnT4DHT2hW OhyO4kdCmvxbybtB3hJve+U QY4MSH7 PL11RK63D9IhFlbvqYCixZP +PHRhYmxlIHdpZHRoPScxMD XiTgGvcHhfRK6kMn4nLETrX WNvbGxh cHNlOiBj (more content not included)... [facility] Consent for Treatmenton 09-23 Consent for Treatment [id number]#1.00C D:127 [facility] OT - Orderson 10-11-2022 OT - Orders [id number]#1.00C D:127 [facility] PT - Orderson 10-11-2022 PT - Orders [id number]#1.00 CD:127 [facility] Comment on above: Other Comment: ot... not pt Intra[employer] Documentson 0 3-09-2023 IntraOperative Documents [id number]#1.00C D:127 Normal [facility] Coding Summary.on 08-30-2022 Coding Summary. CD:[id number] Gh0 bWw+PGhlYWQ+BP1KABSpF12 nsCGzfM4rB3UXCAbBGtjsHF JOOEdDJtGlxpAmTQ4emXRqK XJu IC8+JB9fOQTcKbkugUFmr1E 9xRX4J23bwm3tFYnhwEZ8NR MbUyRvenplv9cvaKr4HPlfG mluOyBt RWJrjB48PIG4yR44Yn55pYD mjWQsg0wdoBq2JmNbOQVjWU B5hGpwSXwzy8XlODAhX31vy NFhd6R5 MFVgxKwidBIuYsQzaVE7lK4 oHOgnlyyms1uohowjHxt9fu 65pSRjg2Z9vRO7I8DkrzJ3I GJvbGQg HjfhaVNCrR2tfnyia1jxarn xKvMeQKAsIPw1EOf6ZAXnnV tnPtHuEP76DKL6YIJhhgDzW 2FsLWFs xJzvZxQ0z7B6Cc7RV2HRTse fW8FRXNUUNZwfqVG+PC90cj 80A5VkEpevJxs6PBDmTBU2d JI0nZ4r LDGmNNsqa1O1dJD8L5NmwcN ufr3nz3upRUCqCUmnF28rqS Lxf2I8WIIngDR9SAOdfJulW iBzaG93 Oyc+RIPtsHtxk9QrAfybv3u xg8bkpBe7TfbvEXNflhElpU diNEQ1n3EmKh6cNFVdiRI5f FE3yM4l ShNfPtI8TLdkV012BaOlfIM sCdsnP94eM9RcbKF+PHRyPj q4EVGytTmdGI3qB5MlWUWcr mctbGVm yZscDT4nUIHxiotpVCObsN8 aUIYuH5i1EgUsQtP1HUwvB4 WpSOVtxpqeMr06nW3kCbGmJ qA3QUrr C7CnkqG9RCZzbZHmKKioTAV 1W48xe9S3AAVqKOXdBAQ5uX I2bD0ueGiginyugYEymKqfa mVydGlj KBthEVhoN757BFGwtXwrNsE vZGluZyBEYXRlOiAgMDMvMD gvMjAyMzwvdGQ+WCZpPUE7i WxlPSAn iPMnGQwuXk2hwQnkvLytJI7 bMUVsgpivILYfqT0tFHBhiA HomGxxZI1lZNYvdizgp957T iAxMHB0 CQCifJIxA7VhpE6jZnMwOJK dTPPkW0ZhjQVvZOekK247TJ lzZhE5UYZjljMjS8CoOYSmp WduOiB0 f2Y2Ud8Kw9JfazpeH8VqwKL iMkBaUbfrDSh9X3ChWgwdbJ I+QZ35EAPnBN81WDs1QXK1z WxlPSdi IKOrO4WpeL4pFhQzRZLlZNU kOyc+PHRhYmxlIHdpZHRoPS prGCJmNdHjkSdyBF0tRr9tE GVyLWNv bDvekWZePjSqi7ofMZBgEIa aVO8lvSsmN3PqhGR1ZRZmj4 g6Qv81H83vE2KdbGF+PGNvb YJ2jFS9 iY3wLkNgJtU9GWfrT833XnE pxOHhRuwmv0pkt6jjeWn2Ol E1NZCvvyCkkXftSVL1y8PiP g59B06q IHdpZHRoPSIxNSUiIHZhbGl koo6boR4fSh1+SPZafBX0gA C0mQ6iRrYmUxJ3VHciX978M nRvcCIv Fwddm9ghq0zgxVi7UnVhRBC usgRonBggVKV2x0CuAj17C3 TehFkpz3AiHit1gr26aKTbk 9R6rAW4 F4QnUOPdjlkveFDuhMvgKB7 sPDVoxcusVPSmfG4lJNKjT8 u5DlUbNuI1MFilZ3KpjlB1Y GJvbGQg OFUzuKPTyG8bpzihf1yhxzk mTvXzCSOhJKo9KJo2DXYlgE mcChZdMNH4RrI3DEH6yTLio W0unAhw vcnylK2uVph+OJI1uGXqcRC DHO4rYpejyTZ+AKXpZVO4nW weRQarHOLflG3xZLGmG7x8E iAwLjA1 VFpyF9QyfdS1DDEhwATeKLY znMJKcH5dfkduu1ydbvbaKg FlWQIxHFk1CZs7DQPjgCygV iBsZWZ0 ThZ3ULN4aKVkeW6dzXodhst ryK2wNey+MukqfCxdJLP6GO a9H1LgUsa2HHOpwSljVB1vq GFkZGlu Nv0nfDfazUdyAO2uQCYwjdc wr218ZmGxn3nkURAigCUhTB goFLM4W39aw8A9TBYuHHJaE OL4eCN7 gO8beJxxswxtsGMzgTnedwQ jsSurSVgeFHidV014PEGjnA hjBzOmFUd3C7VbKej3JCCiv PysCE5y uVDhHZlkWb5dwEhfdTpgWX0 jELQxkiuem737YiVaa0czGH GohXCjPUgnISN3W09ml2J6S CMwMDAw ITF4lQA4bS8oxLswfxmwyUU mdDsgdmVydGljYWwtYWxpZ2 31ALXrkSjwYzThqYy4Q2KqT gt8BERl vTwpAB9vcIRrIPlsQu6kbKa xdCzpQN7wSWYcpakrh786Xf Uvb2doXMGgaYOuLWanNXG0W 75fc4D5 DWRbHWCgYLO5tWH7oE9dxCc nbjogbGVmdDsgdmVydGljYW vuLJulN243NWStoGdbKyLqd GllbnQg RLpnVOd0D0TxOczaqPU+PC9 8YOIcYI73uHYkeDZpj6tuoT a0MjWhSILhRYR2pHfnZUffy 3JkZXIt B81quPSxf3K3YSCdnLvmrTT gMnJlhCJ6cH7jFTshyhabl3 yfdarvPdcfi2yxes60nO09B 29sIHdp ZHRoPSIzMCUiIHZhbGlnbj0 clN8uNe3+IQIodXQ9yMR7lY 1nNFBoQwQ0TVpiR946TuLiw CIvPjxj b5vyi5fsjKk1EzE9AADcgbL qjRmbDXN7h1TzJn39D63mNL dpZHRoPSIyMCUiIHZhbGlnb m0jqT7i Ii8+UWWjmHQ8qPG6wT7zPkH vKhQ8KVohR986JoNheYFhMn kpZ53dA7OrbAG+XETeNzk7S CBzdHls AM5tkYKdODoaGe9uWXA7GaR jBiKoWZinP3AiZRLndjocwg iilVW0GTCmUZOkgP98Ov8tk DogMTBw wUXUrH5kkgbqb0diveccEaV vYLYlAGn7VFw0ECMfyQrdRv GeMCO8DsP2AQJ8cJCzzQ4og Glnbjog pS0xU7XfAGMjvstyDf14pO0 cIqUlEfM8DWggVop+VkVJVE ezGCLDZSPWZAb4J9RpCzu1U CBzdHls SG9bsGWjRTnzSg4lhAmdnFq iCD5cTWQhblhiEGIuzB0vSR PaeVVfmKgwWR3xDMWxbjhkg 250OiAx JZM1UEDvhAAhL3TaiZ1vMdG bJCUaJZNoE9OktTCcXKvzN3 02NGmiChH4SMHcmlHdA8FmQ WFsaWdu RwM0g7K4Lc7nRt4bWE0qQPx 0NY64WC83nJUxd1R3fJV3S3 IuGPKiunupusszzBL7OHVlO DUwaW47 zWCcLGheYa7zl3B0j664IWV xIJWgoD53Zv1mfJtsHYWzpS BMnQ4ftbwcb4xmlgxqRyEiI DAwMDt0 LTw4QNTwwZuaHsCbMFW8KhE 3RAP1zRQusK6ypDviltnlzD 9wOyc+LFlbBAUqqwG0T9CmD gf5ZWTf gIkvKL3yeNJeKJviZq5saKw umBccUM9oYFYvnxhmVYWetB 0fTZKjpYQhcErrOF4hFRKsz ygym185 TyFdNHE5PRGygUFzM8SfyR3 oVpDgXWPmHDHxD4OiqVMrTZ ecE821MUayQlV6JJDsgmFrR 2FsLWFs hMjmKwM7p0X9Eh7NEM4beST 2Q1SjFsl6HSPvgOefWC4txW XdSQusCd8wfUtkqMwmVX7iY TBpbjtw SMKapF9oZGVknNDmbEnqAR4 kJZUchppun419GhCcQJN9HN BwbFQhT9KyeS9fFyTdMKTrF ZOxP7Yc bIBzKMftS870XFejIjG9ORY uzvPaB7LxUVMqeSqsFxY9r5 E4Gc2QrWNlLMCvCN18ZL25L E46X1Wf PjwvdGFibGU+PHRhYmxlIHd pZHRoPScxMDAlJyBzdHlsZT 4jUe5dCEByHHZrxAdwhIHzJ sQwb1vd KORwSLdiYO3clPaeI9YobLE 9EVNlk8y4Ca94O43cC5XmiD A+TQFdbEZ3lCR5cA9uKtMmB uO3EEbt E623WyXitWMoDdgxa5phw8u fuEu2AaMqCFIkejAdvZyjRU K2w8PqHu26R23rEHwiVPOwE SIyMCUi ZNOttCndjg8meF1wGw5+PGN obYT5wJW7xK2nXcFsJoI8AA wkX937TuHdtNOwArnzW44yX 3JvdXA+ NMFqTdg9RNLwxAriAY2ijMP uSZjhIj8tJNW2RtOyLuKrBZ jfP6TpAGXkbfqppjslhTN8U DAuMDUw aN22Ix4paLehLv6cENMiGNM 0TUMkhZGeA2MolL6iOeInNO GdVHNfA9ZsmVVaQKcxY546T GxlZnQ7 NMPfmcNaL0EqFCIqeCxgLmQ 2e1T8Um2VpOhdcQTsUI8lVq XeAKc9J1ToXgz3DLRknHmpE Z9gpDUg ZHvwTl4zqMokxQqrJE1aBJC mfkjeg559KnBcz6neNFPdfY RhIEpzVLZ0U52vb1P9ZWCyY DAwMDA7 wEB1qL6jcRxyxuddfOPlqAu iujAnhVzpXAuwOKpdU202WC GcjUyrVkQXDks4M8QcGun3M CBzdHls BD2zqGSlKVofLv2kpEfsaUu pYI4wWHTyfccku729XwUwh1 bcZEChqPFoBQmhRNJ0H69ld 4N1JRNq TVHsXXY3dBS2rX2weDogdmm gbGVmdDsgdmVydGljYWwtYW daV876FOHewPhtUw3UEoo2C 9IcYuc8 PVPdoGpgNI2stXNtLPtaGu3 bzPtyjSpdBO9rREJmndvpk9 25PkBoo4dzYEMkdRQzGSyjG YK9L15n j8O7QYDmFRPyEVL6bOV1yO0 hbGlnbjogbGVmdDsgdmVydG mjLRwvPDeqH415TZRjsMrnF lBheWVy OjwvdGQ+AQ32jb69O9NeUdc rOco0XBZxVGN8hGX7dU4kIH IrQNfyp8C6kMX0X7NlpcBss y4rp2te YXBz (more content not included)... Normal [facility] Physician Orderon 08-30-2022 Physician Order [id number]#1.00C D:127 Normal [facility] Coding Summary.on 08-21-2022 Coding Summary. CD:[id number]:[id number] Gh0 bWw+PGhlYWQ+MG8XGGWyE14 tzXOsrG8DD9lTJI6OLRHEOA SJRG9NED5nmJT6RTytO8Khu iAv TkdkpMGdRQ72UKd5SEY1yDf bPMzysR5ceCLnI2f4QbGgEJ 32wF79IUkuZXVxXlY8QiYmq jsgbWFy C3wzEuSisJErVyn+PHRhYmx lIHdpZHRoPScxMDAlJyBzdH djPS2xZr5gUGLeRQYyhNqna HNlOiBj p4piHSCsEPzyKZ1fzVswK5F ydZR7PZTpj5f5Vk72dGP+PH IrDPL0fEldBKshj596ZeJsj 5zxNIR4 iWRlMOciSEC6V29wf7L9BFC oEQQyBGJ2yFG5qY0cyWtyra bnL1ZfpUDcPlN9HYZ0vOLpe N5otVnu xrthiH6kUle+J42DSL2KGUM KHD5TUet6C8AxAamuxAO+PC 77IWQwFY24uLMnyAJuj5erg Lz4ChGc ZMQhQWA3mAlmWKudj6YlTHA pZ83qcGGqh8E6DPIvoGgxcJ XlVsHnqUB4cK9bRTgvivcyr 2hvdzsn Dahiw4uejg64rF58S57cEXp eXFZjTYC5DWCaDNQobAyjuy 1boW9cKt2+JEowb0vgq8ooa Ud8FuIa MTMohhTykYbbOUY1p8QkQl4 2D8EcfNays4FtUhn6es67oF Fwd3A8dLD9VIpqEYSxpD2fP WxlZnQ6 KKJwNhZqlI90tMSlXXqdJr0 iwHsjsNbrIN2cPGNwsoojLF JlwG4tUYAvyPFyfRrbBD1pV TBpbjtm y390CbUfRVP5KNWyrIIyX7M opU1bZpDuAQIbFAOsN7CstM NqTIqeY067ZXtxNdL0IXMax wDkA8Xy SZNoaTuwAeX0s1G9Nq0Kh4U aahxtARF7ENctBGAcXvG5Wh BjVyD5X3LeRgr7NNWjeFtaO Q1dC0Yi TKEurycaqqmppHQ0HYUfAET phS88mZLyPAkyQp7lr0Y8b3 98PUWzMLPxvA82Eu6zhRgcA TBwdCBU xH2bbnyve9uxntogAjTrITH tHPt1TEe7USQtuQweMlYfML T1HgN3ACI0wKSrkX6itIhqt omqhM8k Oyc+Z52ctL3pBAP1CLO8xqi qPQOpyrInFX92VJ69X1CcAp wvdGFibGU+PGRpdiBzdHlsZ U7vKeDg r1upy8GaRFqjD0VrKBOfGXy vGtt5IXQmCDO5uTS2aC8eCT AuNRaoo5G5rFX3H4HczbEwv b9bi7jb SHQrFDreZ70qiXHum8U6CSX rwTN3HZMslZvbBzJfrZ76Gg c+DQCmvUeau2VhVsmmu3qaj 0ymnSc9 RlAoMQStdbYwhHezOGY9i4J yDv26X58fEBsgDAXeSVOoJA ZaDDHimUchya3xtS9iZj4+P GNvbCB3 wHP6iH2vAVEeJvD3NJohL46 4XnDinQEmXzzta9hmn5ucjO k0VrPqOSBvuhWhaBwcQEH9n 7KrPe69 H11zZKfoYQJuZXQzWCKzOQO soYlbay8siN1uPg4+PC9jb2 dalk79eQ02zFW+WSWkYHG5y WxlPSdw AQTxmZ1uWCrePoR6EFIxDrK vrQ88vPLaJZsxWk8seUcfkJ cbKL6eUYAtkcrwx731RaHko 2xkIDEw uAKpJSjqESW5U46hk0N5AUB qDZZzKQG1uSE5xQ0gkFpeeo ogbGVmdDsgdmVydGljYWwtY AlvL282 IHRvcDsnPlBhdGllbnQgTmF bCPr0Q8QjVmf6WUJyeKsqFR 3zmZFgNMvsMo8jwHacsTprZ F2pTUFa fjetc765HfEcd3eeCLBbrZT vRNbbFGA7F14kl5R2HEAzHE NjROM8aCO1fW1rnQpuekxjw GVmdDsg ltCatRrvLHjzTJcyQ824LQQ nhCwdKjAqaoYfHKXycCY7XV 31DF32kTTcn4I6dKH3N2UcM GRpbmct romlbHJ9SIDkKDKatP16Km6 ycUdoKr0dZQBqIXX1RZAykV UdH5DliJ7oWrLiRGPpLUIvT 3RleHQt NBerN807QKheWuX2EQNozrW nG0LqTHVzbAbcDjD6w1W8Rz 4VO3A5PC49AF14fBVms5M5v CS9U5Qu ETJnwpaffblvjSE1MBGrSGO ryV77Zr6kyWyiVf8uJZUqYX D6UGEupNMkV6CquY2fWbMcJ DAwMDAw U1DyeQCwNKpwM360IXoqThI 9GFOhtvMpT4KjVHFeiRzfZe P9q0N1Hi7IOZq7KJ01HQ06o NTqv1L2 gAG5I2SyWHWxvdnyomnfqEA 7LSMbZURozI92Nz0xrUhjPr 9gONUeVVU6SWNgmMGcU7Byi T3nEhHe QGLaWBNdG6BkwDAjBCzzG74 1JLblJvZ7YUFjwbOrE3WyFG JcfBvpEyI5u8Z6Pm1ITAMaA A09QMP3 mRG5FF66JS92D5AwAqopsYY ibGU+PHRhYmxlIHdpZHRoPS qqPUOvYvItdPnuRR6yIn7rA GVyLWNv zBwaxPXwUzApb1uwBDLjFDn bYQ7csTqvJ3CftPX8IAEdn9 j7Tc55A12mQ6WixDR+PGNvb BT9nTX1 jX6sJdKcBpG4QVkaY693SrB vtHRfSfskr4zmp9uihFe1Qm I0JUObxmWhgStvCSM9s0JnC t76A76d IHdpZHRoPSIxNSUiIHZhbGl yse4frL8lJh4+XJTutPH3wO G3bW0rEeRjYuD2PCtvU085P nRvcCIv Wrwqg6qzm8exmLb5EyTaAVI vpbNztLlcUTT2n2AuNt71E6 RnzZwpv2HhHsc3ty17iGYol 8W4bOQ9 L5BlKDHvdmzlmFLqsGmbYF9 cFFRvdmzkKQEbcC3wKWEfU4 x5QaXtPcO2YXudC7OvmmB4Z DEwcHQg EIqdAXG7W32ic0K2BMPeBMN lKUK5gPR5vI7dpRhpgjyfxH VmdDsgdmVydGljYWwtYWxpZ 246IHRv oZzsTMGocN6nFLQfmMVirTk oGP2pNORvsasoEeXVCJBFOV BKWviNFMAXWH98TX84vPRcy 2C2mLD5 O4NzEUTfdqaosdfvfNV5CPQ dKONlsO19iCZuLYkiXy7xm7 U2i541ASLlZZNfkF39Wx9jh DogMTBw kTOMjU7ynqxvt5qmeeurEmR nYBQgSRq0QCo5EEWooSqfFe JoSQW5SmE3XMB6eMRuuN1gx Glnbjog vU4jIyc+SVOaFYwnSZz7Nix vdGQ+GIYtHSZ9rSzvEDijDP GmpF5tNNPgY1x8GqQcJqU7M VniS9Go MYHsydcxXg64qT1lZrPwSpI 5HCexH0JyanM4XCFvcHObQN bzXFP3B65mb9U5LKXwKWUwU ZJ0pWV5 rS8fhQtaexfisINniMcjnvP jjRhaKHjbSFpcV647MFFlvN afGiH3LSuuNJRbMX50TL65m KXht1G1 eTO9W2CcORLyahjarrxghWL 9DEIlOEFmkY90lLPaHMvdEa 6uv5E5g543ISHaHOUpmC78J w8rhEbk ZTSdeISJqW8vxdvda8qhcsa mSxBxLBYhJUt8MId0XKDwlL knZdUdWJP3HlY8UEO1pVYan I1lxMqd xxdreQ9cSsv+RmVtYWxlPC9 5ZW84nGQmy5C9qRQ2S1VuLJ FfftpybayueOZ7FKJhLBFhk K94sJRl WCumKz3ic7V0a340EDFgTDF jeS20Jv3znPbfXGYchOHLrX 3ixoswz0wczmmqNmDjQOTzG Ck6DZh2 QKSjnIlsTiBmBSZ5GfC0ZVL 0nZCgdN7hrCrwacfjtV4mEq c+GT9mmKjlmP9dgG6CMF4jB ERheSBT pAIrDXR8LJ89OK10W7XpHvn vdGFibGU+PHRhYmxlIHdpZH RvWQhpYZWpOgUkjTlmRJ9tS r4zUGOn UMAybMbsnUYwRhFrm4goSNL kVUyaCU7qqOfmR3DdpWB2GQ Jvy8d8Ij51T48jY8RgvLY+P GNvbCB3 bTO1kL0qGzEqLxG1YHjgH33 4XgWkoAPeJwilw3fjs1yyfT b8BhJtBOCpdyKmmZuzTAM6y 1HpMt22 Y86iRGxoFXAoHCKxYKHaBSR zgUlgby1ljW2dDo0+PGNvbC S3xCE8kV7uGeHkJrR3EFfyL 249InRv xQWwLderY78cZ8NnxPE+PHR wJuo9DSSelGycMH1noTIoOZ qtLo1xOWH8CqEbJyXiOIlhO 3BhZGRp xdexkeavfWU7LZCmXJZckN9 3Go5amQnwCh0aVZVzIKO1ZC CjwPLwJ6GdxN3wBnCoBLXgV ZIrZ7Ee jIKySGteQ180LLbbViV3UMB btkTmE7NaEPQqpTlvKzJ3s4 D9Gy0KlMizjXEkFF8iYuXeG Oy1W1Yo Lkq9JRMpzStfBL9zlVIvAAq jJe2szFknfRceQK8wIUSnvw eny797ZyRyk4uqUSGgfGTaC GltZXM7 G80pb4T7EDOcXJOlUDT8mPC 7oH4ulAjnqretoZBcqYkzyi VwxExyIMmqNKarW921ZUFim DsnPkZJ Wfc1C3OpWtz0NDQvkQpgBN7 rsOAlNVniEo5kyJnxgWicBN 5aNSXwtsxjc426XdDcc9fjE DEwcHQg TVurLOE6T89pp4M6FDRrJJC bCJQ6nJX5sM9rnAbcrzxupJ VmdDsgdmVydGljYWwtYWxpZ 246IHRv kSmyQy5NSfv8W2MwQgp4XJZ ypZwiQF2nuFOpMIdpAe6hmR tmmVobFH1nRMHdpoghe630X vUqp0do ZSJzdGObMTnqPVV0O27qc4S 1KGYeHYPmOTW8jSA9gH8jdM lnbjogbGVmdDsgdmVydGljY WwtYWxp E632JWSckNesEsCuzRQwDpb vdGQ+VH57zb15C2OnEeuqIc h3HMOyKSA3mEG5oQ9zTLJoG Fiog9M6 bGU9 (more content not included)... Normal [facility] Consent for Anesthesiaon Consent for Anesthesia [id number]#1.00 CD:127 [facility] Discharge Instructionson Discharge Instructions [id number]#1.00 CD:127 [facility] IntraOperative Documentson 0 08-21-2022 IntraOperative Documents [id number]#1.00 CD:127 [facility] IntraOperative Documents [id number]#1.00 CD:127 [facility] Main OR Intraoperative Recor don 08-21-2022 Main OR Intraoperative Record IntraOp Document Type FT Summary Primary Physician: Reza Proctor DO Finalized Date/Time: 08/21/22 12:38:52 Pt. Name: POORNIMA BARKER /Sex: 1975 Female Med Rec #: [id number] Physician: Reza Proctor DO Financial #: [id number] Pt. Type: A Room/Bed: [place] [address] Admit/Disch: 08/18/22 06:24:59 - 08/18/22 14:30:00 Institution: [...] Role Performed Anesthesiologist of Surgeon - Primary CONTROL SUPERVISOR/SA Record Time In 08/18/22 09:53:00 08/18/22 09:53:00 08/18/22 09:53:00 Time Out 08/18/22 11:01:00 08/18/22 11:01:00 08/18/22 11:01:00 Procedure ULNAR NERVE ULNAR NERVE ULNAR NERVE TRANSPOSITION(Left) TRANSPOSITION(Left) TRANSPOSITION(Left) Comments Last Modified By: Tuyet Morel Kelsie E Sayler, Kelsie E 08/18/22 11:05:46 08/18/22 11:05:46 08/18/22 11:05:46 Entry 4 Entry 5 Case Attendee Maria Teresa, Tuyet E Jose, Eri D Role Performed Pipe Coverer Helper - Primary Scrub - Primary Time In 08/18/22 09:53:00 08/18/22 09:53:00 Time Out 08/18/22 11:01:00 08/18/22 11:01:00 Procedure ULNAR NERVE ULNAR NERVE TRANSPOSITION(Left) TRANSPOSITION(Left) Comments Last Modified By: Tuyet Morel Kelsie E 08/18/22 11:05:46 08/18/22 11:05:46 General Comments: ANUSHA HANKS, CHIN STUDENT, SCRUBBED IN AND IN ATTENDANCE.BROOKE BRIAN. [...] Proctor DO, Roth CST, Liane E, Tuyet Morel Kipp, Jessica D Time Out Complete 08/18/22 [...] and tissue Entry 1 Skin Integrity Intact, Sundance, Warm, and Skin Abnormality No D (more content not included)... Normal [facility] Preoperative Documentson Preoperative Documents [id number]#1.00 CD:127 Normal [facility] Consent for Treatmenton 07-27 Consent for Treatment [id number]#1.00C D:127 Normal [facility] H&P Updateon 08-18-2022 H&P Update [id number]#1.00C D:127 Normal [facility] Inpatient Patient Summaryon 08-18-2022 Inpatient Patient Summary [address] [address] [facility] Clinical Discharge Instructions PERSON INFORMATION Name: POORNIMA BARKER PHYSICIANS Admitting Physician: Reza Proctor DO Attending Physician: Reza Proctor DO PCP: JERAMIE HARVEY, DINESH Discharge Diagnosis: Comment: PATIENT EDUCATION INFORMATION Instructions: Ric Proctor - Upper Extremity Fracture Surgery (Custom); Post Op Patient Instructions - FT (Custom) Medication Leaflets: Follow up: MEDICATION LIST [facility] [address] [place], [place] [id number], [phone] acetaminophen-hydrocodo ne (Arco 325 mg-5 mg oral tablet) 1-2 tab(s) Oral q4hr; as needed for pain. Refills: 0. docusate (Colace 100 mg Cap) 1 Capsules By Mouth 2 times a day as needed for constipation. Refills: 0. Medications to Continue Taking That Have Changed [facility] [address] [place], [place] [id number], [phone] START: ibuprofen (ibuprofen 600 mg Tab) 1 Tablets By Mouth every 8 hours as needed as needed for pain. with food or milk. Refills: 0. Medications to Continue with No Changes Other Medications cranberry (cranberry oral capsule) esomeprazole (Nexium 40 mg Cap-EC) 1 Capsules By Mouth every day. Comment: Normal [facility] Main OR PACU I Recordon 07-27 Main OR PACU I Record PACU Phase I Docum ent Type FT Summary Primary Physician: Reza Proctor DO Finalized Date/Time: 08/18/22 13:17:16 Pt. Name: POORNIMA BARKER/Sex: 1975 Female Med Rec #: [id number] Physician: Reza Proctor DO Financial #: [id number] Pt. Type: A Room/Bed: [place] [address] Admit/Disch: 08/18/22 06:24:59 - Institution: Case Times [...] By: Luz Frederick RN 08/18/22 13:17 Normal [facility] Main OR PACU II Recordon Main OR PACU II Record PACU Phase II Doc ument Type FT Summary Primary Physician: Reza Proctor DO Finalized Date/Time: 08/18/22 14:50:45 Pt. Name: POORNIMA BARKER/Sex: 1975 Female Med Rec #: [id number] Physician: Reza Proctor DO Financial #: [id number] Pt. Type: A Room/Bed: [facility]/ Admit/Disch: 08/18/22 06:24:59 - Institution: Case [...] Signed By: Dylan Mcneil 08/18/22 14:50 Normal [facility] Main OR Preoperative Recordo n 08-18-2022 Main OR Preoperative Record PreOp Document Type FT Summary Primary Physician: Reza Proctor DO Finalized Date/Time: 08/18/22 10:25:18 Pt. Name: POORNIMA BARKER /Sex: 1975 Female Med Rec #: [id number] Physician: Reza Proctor DO Financial #: [id number] Pt. Type: A Room/Bed: [place] [address] Admit/Disch: 08/18/22 06:24:59 - Institution: Case Times [...] Signed By: Tuyet Morel 08/18/22 10:25 Normal [facility] Monitor Recordon 08-18-2022 Monitor Record [id number]#1.00 CD:127 Normal [facility] Monitor Record [id number]#1.00 CD:127 Normal [facility] Operative Reporton Operative Report Patient: CHANDA BARKER Age: 47 years Sex: Female : 1975 Associated Diagnoses: None Author: Reza Proctor DO DATE OF SURGERY: 08/18/2022 SURGEON: Reza Proctor D.O. CANDY DECORATOR: Erin Palacios CFA PREOPERATIVE DIAGNOSIS: Chronic extensor tendinosis, left elbow POSTOPERATIVE DIAGNOSIS: Chronic extensor tendinosis, left elbow PROCEDURE: 1. Open common extensor tendon debridement, left elbow 2. Application of short arm volar fiberglass splint ANESTHESIA: General with regional block ANESTHESIOLOGIST: David Montaño MD IMPLANTS: Arthrex 3.0 mm knotless suture tack anchor OPERATIVE INDICATIONS: Poornima is a 47-year-old iqqim-qgwk-zfuuawii female who has had persistent pain over [...] in the common extensor in a running urxyzi-bc-fzjsv. The distal aspect of the suture was [...] was clean and elective. Reza Proctor D.O. [facility] Comment on above: Result Comment: Elec [...] Using maximal sterile barrier technique per current [facility] guidelines including hand hygeine, Guidance (Ultrasound used [...] patient tolerated the procedure as expected. Normal [facility] Comment on above: Result Comment: Elec tronically Signed By: Danyel HARVEY, David Allen.br\Date and Time Signed: 08/18/22 08:24 EST Outpatient Surgery Discharge Instructionon 08-18-2022 Outpatient Surgery Discharge Instruction [place] [id number] Patient Discharge Instructions PERSON INFORMATION Name: POORNIMA [...] to serve you. Thank you for choosing [facility] HERE ARE THE MEDICATION CHANGES THAT OCCURRED DURING YOUR HOSPITAL STAY New Medications [facility] [address] [place], [place] [id number], [phone] acetaminophen-hydrocodo ne (Arco 325 mg-5 mg oral tablet) 1-2 tab(s) Oral q4hr; as needed for pain. Refills: 0. docusate (Colace 100 mg Cap) 1 Capsules By Mouth 2 times a day as needed for constipation. Refills: 0. Medications to Continue Taking That Have Changed Medicine [place] [address], [address] [place], [place] [id number], [phone] START: ibuprofen (ibuprofen 600 mg Tab) 1 Tablets By Mouth every 8 hours as needed as needed for pain. with food or milk. Refills: 0. Medications to Continue with No Changes Other Medications cranberry (cranberry oral capsule) esomeprazole (Nexium 40 mg Cap-EC) 1 Capsules By Mouth every day. 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 It is therefore advised not to drive until after your first office visit following surgery. Do not drive while taking pain medication. ____ Reza Proctor, DO [facility] [address] [place] [phone] Reviewed: (Inserted I (more content not included)... 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 It is therefore advised not to drive until after your first office visit following surgery. Do not drive while taking pain medication. ____ Reza Proctor, DO [facility] [address] [place] [address] Reviewed: [facility] Progress Note-Physicianon Progress Note-Physician Patient: POORNIMA BARKER Age: 47 years Sex: Female : 1975 Associated Diagnoses: None Author: David Montaño MD Postoperative Information Postoperative disposition: Postoperative disposition: To PACU. Optimetrix number: Optimetrix number [id number]. Anesthetic utilized: General. Regional: adductor canal block. Health Status Problem list: All Problems Acid reflux / SNOMED CT 379816878 / Confirmed Endometriosis / SNOMED CT 745176508 / Confirmed History of seizures / SNOMED CT 1327364413 / Confirmed Migraines / SNOMED CT 55406286 / Confirmed Pseudotumor cerebri / SNOMED CT 946967887 / Confirmed Smoker / SNOMED CT 718987092 / Confirmed Added secondary to documentation in [...] Surgery Unit, and To home ). Normal [facility] Comment on above: Result Comment: Elec [...] All Problems Acid reflux / SNOMED CT 071079372 / Confirmed Endometriosis / SNOMED CT 373339264 / Confirmed History of seizures / SNOMED CT 9691916263 / Confirmed Migraines / SNOMED CT 75705839 / Confirmed Pseudotumor cerebri / SNOMED CT 817418685 / Confirmed Smoker / SNOMED CT 534261792 / Confirmed Added secondary to documentation in Social History., Active Problems (6) Acid reflux Endometriosis History of seizures Migraines Pseudotumor cerebri Smoker Histories Past Medical History: No active or resolved past medical history items have been selected or recorded. Family History: No family history items have been selected or recorded. Procedure history: Cholecystectomy (83129331). History of total hysterectomy (4089789367). Excision of cyst on neck (9982280351). Excision of cyst bilat ovaries (4185980529). Colonoscopy (329752918). Procedure on brain ventricular shunt (4164179152). Social History Social & Psychosocial Habits Alcohol [...] EST Height (more content not included)... Normal [facility] Comment on above: Result Comment: Elec tronically Signed By: Danyel HARVEY, David Allen.br\Date and Time Signed: 08/18/22 06:50 EST Consent for Procedure/Surger yon 08-17-2022 Consent for Procedure/Surgery [id number]#1.00C D:127 Normal [facility] Physician Orderon 08-16-2022 Physician Order [id number]#1.0 0CD:127 Normal [facility] BUNon 08-08-2022 Urea nitrogen [Mass/Vol] 10 mg/dL Normal 5-21 [facility] Comment on above: Performed By: #### 2 494466, 3118417, 70797441, 6482760, 6900014, 2232305 ####[facility] [address] [place] [address] CBC w/Indiceson 08-08-2022 Erythrocyte distribution width (RBC) [Ratio] 14.8 % High 10.9-14.2 [facility] Comment on above: Performed By: #### 2 219472, 8230893, 34857573, 0283313, 9487487, 9838506 ####[facility] [address] [place] [address] Hematocrit (Bld) [Volume fraction] 38.8 % Normal 34.0-46.0 [facility] Comment on above: Performed By: #### 2 805063, 5356447, 25891027, 0002828, 5389711, 1344491 ####[facility] [address] [place] [address] Hemoglobin (Bld) [Mass/Vol] 12.9 g/dL Normal 12.0-16.0 [facility] Comment on above: Performed By: #### 2 578171, 4362062, 71302319, 2001695, 9584749, 4968834 ####[place] [address] [place] [address] MCH (RBC) [Entitic mass] 29.3 pg Normal 27.0-34.0 [facility] Comment on above: Performed By: #### 2 618571, 6050421, 64742882, 5928708, 5815559, 5319798 ####[address] [address] MCHC (RBC) [Mass/Vol] 33.4 g/dL Normal 31.4-36.0 [facility] Comment on above: Performed By: #### 2 087408, 0111341, 71433522, 4041043, 3174787, 6672337 ####[place] [address] [place] [address] MCV (RBC) [Entitic vol] 87.7 fL Normal 80.0-100.0 F [facility] Comment on above: Performed By: #### 2 827959, 6946889, 19997144, 0679012, 0723294, 7711315 ####[place] [address] [place] [address] Platelet mean volume (Bld) [Entitic vol] 8.3 fL Normal 6.4-10.8 [facility] Comment on above: Performed By: #### 2 411946, 1403544, 33933580, 0958414, 6071930, 8407916 ####[facility] [address] [place] [address] Platelets (Bld) [#/Vol] 278.0 E9/L Normal 150.0-500.0 [facility] Comment on above: Performed By: #### 2 845409, 8986864, 67923752, 1525446, 6081994, 2453753 ####[facility] [address] [place] [address] RBC (Bld) [#/Vol] 4.4 E12/L Normal 4.3-5.9 [facility] Comment on above: Performed By: #### 2 394909, 8899025, 90025272, 4019745, 8722920, 2924808 ####[facility] [address] [place] [address] WBC corrected for nucl RBC Auto (Bld) [#/Vol] 10.7 E9/L Normal 4.0-11.0 [facility] Comment on above: Performed By: #### 2 682285, 2433671, 05408803, 9792545, 0343671, 2123918 ####[facility] [address] [place] [address] CHEMISTRYOrdered By: SYSTEM SYSTEM on 08-08-2022 Anion gap [Moles/Vol] 12 mmol/L Normal 6 - 16 mEq/L [facility] Remisol Chloride [Moles/Vol] 108 mmol/L Normal 101 - 1 11 mmol/L FT Remisol CO2 [Moles/Vol] 26 mmol/L Normal 21 - 31 mmol/L FT Remisol Creatinine [Mass/Vol] 0.9 mg/dL Normal 0.5 - 1.3 mg/dL [facility] Remisol GFR/1.73 sq M.predicted among blacks MDRD (S/P/Bld) [Vol rate/Area] mL/min/1.73 m2 Normal >=59mL/min/ 1.73 m2 [facility] [place] Chem S GFR/1.73 sq M.predicted among non-blacks MDRD (S/P/Bld) [Vol rate/Area] mL/min/1.73 m2 Normal >=59mL/min/ 1.73 m2 [facility] [place] Chem S Glucose [Mass/Vol] 96 mg/dL Normal 55 - 199 mg/dL [facility] [place] Remisol Potassium [Moles/Vol] 3.6 mmol/L Normal 3.5 - 5.3 mmol/L [facility] [place] Remisol Sodium [Moles/Vol] 142 mmol/L Normal 135 - 145 mmol/L [facility] [place] Remisol Urea nitrogen [Mass/Vol] 10 mg/dL Normal 5 - 21 mg/dL [facility] [place] Remisol Consent for Treatmenton 07-26 Consent for Treatment [id number] D:127 Normal [facility] Creatinineon 08-08-2022 Creatinine [Mass/Vol] 0.9 mg/dL Normal 0.5-1.3 [facility] Comment on above: Performed By: #### 2 [id number], [id number], [id number], [id number], [id number], [id number] ####[facility] [address] [place] [address] Glucoseon 08-08-2022 Glucose [Mass/Vol] 96 mg/dL Normal 55-199 [facility] Comment on above: Performed By: #### 2 [id number], [id number], [id number], [id number], [id number], [id number] ####[facility] [address] [place] [address] HEMATOLOGYOrdered By: Carlos Humphrey on 08-08-2022 Erythrocyte distribution width (RBC) [Ratio] 14.8 % High 10.9 - 14.2 % [facility] [place] HemeAutoSS Hematocrit (Bld) [Volume fraction] 38.8 % Normal 34.0 - 46.0 % [facility] [place] [facility]e[employer] Hemoglobin (Bld) [Mass/Vol] 12.9 g/dL Normal 12.0 - 16.0 gm/dL [facility] [place] [facility]e[employer] MCH (RBC) [Entitic mass] 29.3 pg Normal 27.0 - 34.0 pg [facility] [place] [facility] MCHC (RBC) [Mass/Vol] 33.4 g/dL Normal 31.4 - 36.0 gm/dL [facility] [place] [facility] MCV (RBC) [Entitic vol] 87.7 fL Normal 80.0 - 100.0 fL [facility] [place] [facility] Platelet mean volume (Bld) [Entitic vol] 8.3 fL Normal 6.4 - 10.8 fL [facility] [place] [facility] Platelets (Bld) [#/Vol] 278.0 E9/L Normal 150. 0 - 500.0 E9/L [facility] [place] [facility] RBC (Bld) [#/Vol] 4.4 E12/L Normal 4.3 - 5.9 E12/L [facility] [place] [facility] WBC corrected for nucl RBC Auto (Bld) [#/Vol] 10.7 E9/L Normal 4.0 - 11.0 E9/L [facility] [place] [facility]e[employer] Lyteson 08-08-2022 Anion gap [Moles/Vol] 12 mmol/L Normal 6-16 [facility] Comment on above: Performed By: #### 2 [id number], [id number], [id number], [id number], [id number], [id number] ####[facility] [address] [place] [address] Chloride [Moles/Vol] 108 mmol/L Normal 101-111 [facility] Comment on above: Performed By: #### 2 [id number], [id number], [id number], 7435236, [id number], [id number] ####[facility] [address] [place] [address] CO2 [Moles/Vol] 26 mmol/L Normal 21-31 [facility] Comment on above: Performed By: #### 2 [id number], [id number], [id number], [id number], 2431790, [id number] ####[facility] [address] [place] [address] Potassium [Moles/Vol] 3.6 mmol/L Normal 3.5-5.3 [facility] Comment on above: Performed By: #### 2 [id number], [id number], [id number], [id number], 5295636, [id number] ####[facility] [address] [address] Sodium [Moles/Vol] 142 mmol/L Normal 135-145 [facility] Comment on above: Performed By: #### 2 [id number], [id number], [id number], 8841757, 6645036, [id number] ####[facility] [address] [place] [address] XR Chest 2 Viewson 3 XR Chest [...] V. Transcribed by: CANDELARIA Technologist: ORB Normal [facility] eGFRon 08-08-2022 GFR/1.73 sq M.predicted among blacks MDRD (S/P/Bld) [Vol rate/Area] mL/min/{1.73_m2} Normal >=59 [facility] Comment on above: Order Comment: Order added by Discern Expert. Result Comment: eGFR is race adjusted. AA=. Performed By: #### [id number] ####[facility] [id number] [place] [address] GFR/1.73 sq M.predicted among non-blacks MDRD (S/P/Bld) [Vol rate/Area] mL/min/{1.73_m2} Normal >=59 [facility] Comment on above: Order Comment: Order added by Discern Expert. Result Comment: Ultrasound Tech reginaldo kidney disease could be indicated at eGFR's of less than 60 mL/min/1.73m2. Kidney failure is indicated at less than 15 mL/min/1.73m2. Performed By: #### [id number] ####[facility] [id number] [place] [address] CT HEAD WO CONon 10-31-2021 CT HEAD [...] ROSANNE PERKINS Date: 2021-10-31 14:25 Normal [facility] XR CHEST 1 Von 10-21-2021 XR [...] ЕЛЕНА ROBERT Date: 2021-10-21 15:50 Normal [facility] XR KUB 1 VIEWon 10-21-2021 XR KUB 1 VIEW EXAM: XR KUB 1 VIEW, XR SKULL LESS THAN 4 VIEWS Clinical Indication: Benign intracranial hypertension Comparison: None FINDINGS: Images of the skull shows a right-sided SLIP OPERATOR shunt tube, coursing along the right side of the neck and chest into the right side of the abdomen The supine and upright views of the abdomen shows a non-obstructive bowel gas pattern. There is no abnormal dilatation of bowel loops. No significant air fluid levels. There is no pneumoperitoneum. Right-sided SLIP OPERATOR shunt is seen, with the tip in the area of the bladder. Cholecystectomy changes are seen. There are no clinically significant osseous abnormalities noted. IMPRESSION: Unremarkable abdominal series The shunt tube begins in the right cerebral hemisphere, and terminates in the pelvis. No obvious discontinuity or kink SL: [id number] Electronically authenticated by: ЕЛЕНА ROBERT Date: 2021-10-21 16:49 Normal [facility] Vital Signs Date Time Vital Sign Value Performing Clinician Facility 03-16-2025 14:52-0400 Body height 157.48 cm Dinesh Bobo MD Work Phone: [facility] 03-16-2025 14:52-0400 Body mass index (BMI) [Ratio] 34.7 kg/m2 Dinesh Bobo MD Work Phone: [facility] 03-16-2025 14:52-0400 Body weight 86.18 kg Dinesh Bobo MD Work Phone: [facility] 03-16-2025 14:52-0400 Diastolic blood pressure 67 mm[Hg] Dinesh Bobo MD Work Phone: [facility] 03-16-2025 14:52-0400 Heart rate 71 /min Dinesh Bobo MD Work Phone: [facility] 03-16-2025 14:52-0400 SaO2% (BldA) [Mass fraction] 97 % Dinesh Bobo MD Work Phone: [facility] 03-16-2025 14:52-0400 Systolic blood pressure 94 mm[Hg] Dinesh Bobo MD Work Phone: [facility] 03-11-2025 09:55-0400 Body weight 86.18 kg Dinesh Bobo MD Work Phone: [facility] 03-11-2025 09:55-0400 Diastolic blood pressure 76 mm[Hg] Dinesh Bobo MD Work Phone: [facility] 03-11-2025 09:55-0400 Heart rate 70 /min Dinesh Bobo MD Work Phone: [facility] 03-11-2025 09:55-0400 SaO2% (BldA) [Mass fraction] 97 % Dinesh Bobo MD Work Phone: [facility] 03-11-2025 09:55-0400 Systolic blood pressure 108 mm[Hg] Dinesh Bobo MD Work Phone: [facility] 02-18-2025 10:43-0400 Body height 157.48 cm Dinesh Bobo MD Work Phone: [facility] 02-18-2025 10:43-0400 Body mass index (BMI) [Ratio] 34.5 kg/m2 Dinesh Bobo MD Work Phone: [facility] 02-18-2025 10:43-0400 Body temperature 96.6 [degF] Dinesh Bobo MD Work Phone: [facility] 02-18-2025 10:43-0400 Body weight 85.72 kg Dinseh Bobo MD Work Phone: [facility] 02-18-2025 10:43-0400 Diastolic blood pressure 76 mm[Hg] Dinesh Bobo MD Work Phone: [facility] 02-18-2025 10:43-0400 Heart rate 66 /min Dinesh Bobo MD Work Phone: [facility] 02-18-2025 10:43-0400 Respiratory rate 18 /min Dinesh Bobo MD Work Phone: [facility] 02-18-2025 10:43-0400 SaO2% (BldA) [Mass fraction] 96 % Dinesh Bobo MD Work Phone: [facility] 02-18-2025 10:43-0400 Systolic blood pressure 124 mm[Hg] Dinesh Bobo MD Work Phone: [facility] 01-27-2025 13:31-0400 Body height 154.94 cm Dinesh Bobo MD Work Phone: [facility] 01-27-2025 13:31-0400 Body mass index (BMI) [Ratio] 35.9 kg/m2 Dinesh Bobo MD Work Phone: [facility] 01-27-2025 13:31-0400 Body weight 86.18 kg Dinesh Bobo MD Work Phone: [facility] 01-27-2025 13:31-0400 Diastolic blood pressure 65 mm[Hg] Dinesh Bobo MD Work Phone: [facility] 01-27-2025 13:31-0400 Heart rate 85 /min Dinesh Bobo MD Work Phone: [facility] 01-27-2025 13:31-0400 Systolic blood pressure 98 mm[Hg] Dinesh Bobo MD Work Phone: [facility] 01-13-2025 13:18-0400 Body height 154.94 cm Dinesh Bobo MD Work Phone: [facility] 01-13-2025 13:18-0400 Body mass index (BMI) [Ratio] 35.3 kg/m2 Dinesh Bobo MD Work Phone: [facility] 01-13-2025 13:18-0400 Body weight 84.82 kg Dinesh Bobo MD Work Phone: [facility] 01-13-2025 13:18-0400 Diastolic blood pressure 64 mm[Hg] Dinesh Bobo MD Work Phone: [facility] 01-13-2025 13:18-0400 Heart rate 82 /min Dinesh Bobo MD Work Phone: [facility] 01-13-2025 13:18-0400 Systolic blood pressure 92 mm[Hg] Dinesh Bobo MD Work Phone: [facility] 12-19-2024 13:03-0400 Body height 154.94 cm Dinesh Bobo MD Work Phone: [facility] 12-19-2024 13:03-0400 Body mass index (BMI) [Ratio] 35.6 kg/m2 Dinesh Bobo MD Work Phone: [facility] 12-19-2024 13:03-0400 Body weight 85.72 kg Dinesh Bobo MD Work Phone: [facility] 12-19-2024 13:03-0400 Diastolic blood pressure 61 mm[Hg] Dinesh Bobo MD Work Phone: [facility] 12-19-2024 13:03-0400 Heart rate 101 /min Dinesh Bobo MD Work Phone: [facility] 12-19-2024 13:03-0400 Systolic blood pressure 91 mm[Hg] Dinesh Bobo MD Work Phone: [facility] 11-21-2024 10:57-0400 Body height 154.94 cm Dinesh Bobo MD Work Phone: [facility] 11-21-2024 10:57-0400 Body mass index (BMI) [Ratio] 36.1 kg/m2 Dinesh Bobo MD Work Phone: [facility] 11-21-2024 10:57-0400 Body weight 86.86 kg Dinesh Bobo MD Work Phone: [facility] 11-21-2024 10:57-0400 Diastolic blood pressure 68 mm[Hg] Dinesh Bobo MD Work Phone: [facility] 11-21-2024 10:57-0400 Heart rate 76 /min Dinesh Bobo MD Work Phone: [facility] 11-21-2024 10:57-0400 Respiratory rate 12 /min Dinesh Bobo MD Work Phone: [facility] 11-21-2024 10:57-0400 SaO2% (BldA) [Mass fraction] 96 % Dinesh Bobo MD Work Phone: [facility] 11-21-2024 10:57-0400 Systolic blood pressure 105 mm[Hg] Dinesh Bobo MD Work Phone: [facility] 10-14-2024 09:50-0400 Body height 154.94 cm Dinesh Bobo MD Work Phone: [facility] 10-14-2024 09:50-0400 Body mass index (BMI) [Ratio] 35.6 kg/m2 Dinesh Bobo MD Work Phone: [facility] 10-14-2024 09:50-0400 Body temperature 98.7 [degF] Dinesh Bobo MD Work Phone: [facility] 10-14-2024 09:50-0400 Body weight 85.72 kg Dinesh Bobo MD Work Phone: [facility] 10-14-2024 09:50-0400 Diastolic blood pressure 64 mm[Hg] Dinesh Bobo MD Work Phone: [facility] 10-14-2024 09:50-0400 Heart rate 102 /min Dinesh Bobo MD Work Phone: [facility] 10-14-2024 09:50-0400 SaO2% (BldA) [Mass fraction] 95 % Dinesh Bobo MD Work Phone: [facility] 10-14-2024 09:50-0400 Systolic blood pressure 95 mm[Hg] Dinesh Bobo MD Work Phone: [facility] 10-01-2024 14:27-0400 Body height 154.94 cm [facility] 10-01-2024 14:27-0400 Body mass index (BMI) [Ratio] 34.5 kg/m2 [facility] 10-01-2024 14:27-0400 Body weight 83 kg [facility] 10-01-2024 14:27-0400 Diastolic blood pressure 70 mm[Hg] [facility] 10-01-2024 14:27-0400 Heart rate 71 /min [facility] 10-01-2024 14:27-0400 Systolic blood pressure 124 mm[Hg] [facility] 07-04-2024 09:25-0500 Body height 154.94 cm [facility] 07-04-2024 09:25-0500 Body mass index (BMI) [Ratio] 34.5 kg/m2 [facility] 07-04-2024 09:25-0500 Body weight 83.03 kg [facility] 07-04-2024 09:25-0500 Diastolic blood pressure 62 mm[Hg] [facility] 07-04-2024 09:25-0500 Heart rate 78 /min [facility] 07-04-2024 09:25-0500 Systolic blood pressure 102 mm[Hg] [facility] 03-28-2024 09:08-0400 Body height 154.94 cm MD Dinesh Bobo Work Phone: [facility] 03-28-2024 09:08-0400 Body mass index (BMI) [Ratio] 34 kg/m2 MD Dinesh Bobo Work Phone: [facility] 03-28-2024 09:08-0400 Body weight 81.64 kg MD Dinesh Bobo Work Phone: [facility] 01-07-2024 13:41-0400 Diastolic blood pressure 53 mm[Hg] MD Dinesh Bobo Work Phone: [facility] 01-07-2024 13:41-0400 Heart rate 64 /min MD Dinesh Bobo Work Phone: [facility] 01-07-2024 13:41-0400 Respiratory rate 16 /min MD Dinesh Bobo Work Phone: [facility] 01-07-2024 13:41-0400 SaO2% (BldA) [Mass fraction] 100 % MD Dinesh Bobo Work Phone: [facility] 01-07-2024 13:41-0400 Systolic blood pressure 94 mm[Hg] MD Dinesh Bobo Work Phone: [facility] 01-07-2024 11:34-0400 Body height 154.94 cm MD Dinesh Bobo Work Phone: [facility] 01-07-2024 11:34-0400 Body weight 82.1 kg MD Dinesh Bobo Work Phone: [facility] 12-13-2023 13:10-0400 Body height 152.4 cm MD Dinesh Bobo Work Phone: [facility] 12-13-2023 13:10-0400 Body mass index (BMI) [Ratio] 36.3 kg/m2 MD Dinesh Bobo Work Phone: [facility] 12-13-2023 13:100400 Body weight 84.36 kg MD Dinesh Bobo Work Phone: [facility] 10-19-2023 11:28-0400 Diastolic blood pressure 60 mm[Hg] MD Dinesh Bobo Work Phone: [facility] 10-19-2023 11:28-0400 Heart rate 55 /min MD Dinesh Bobo Work Phone: [facility] 10-19-2023 11:28-0400 Respiratory rate 16 /min MD Dinesh Bobo Work Phone: [facility] 10-19-2023 11:28-0400 SaO2% (BldA) [Mass fraction] 96 % MD Dinesh Bobo Work Phone: [facility] 10-19-2023 11:28-0400 Systolic blood pressure 96 mm[Hg] MD Dinesh Bobo Work Phone: [facility] 10-19-2023 09:21-0400 Body height 152.4 cm MD Dinesh Bobo Work Phone: [facility] 10-19-2023 09:21-0400 Body weight 84.36 kg MD Dinesh Bobo Work Phone: [facility] 10-03-2023 10:40-0400 Body height 158.75 cm [facility] 10-03-2023 10:40-0400 Body mass index (BMI) [Ratio] 34 kg/m2 [facility] 10-03-2023 10:40-0400 Body weight 85.72 kg [facility] 09-07-2023 11:27-0400 Body height 158.75 cm [facility] 09-07-2023 11:27-0400 Body mass index (BMI) [Ratio] 34 kg/m2 [facility] 09-07-2023 11:27-0400 Body weight 85.84 kg [facility] 09-07-2023 11:27-0400 Diastolic blood pressure 70 mm[Hg] [facility] 09-07-2023 11:27-0400 Heart rate 78 /min [facility] 09-07-2023 11:27-0400 Systolic blood pressure 106 mm[Hg] [facility] 06-29-2023 09:45-0500 Body height 158.75 cm Dinesh Bobo Other [facility] 06-29-2023 09:45-0500 Body mass index (BMI) [Ratio] 34.19 kg/m2 Dinesh Bobo Other [employer] Other 06-29-2023 09:45-0500 Body weight 86.18 kg Dinesh Bobo Other [facility] 06-29-2023 09:45-0500 Diastolic blood pressure 70 mm[Hg] Dinesh Bobo Other [facility] 06-29-2023 09:45-0500 Systolic blood pressure 101 mm[Hg] Dinesh Bobo Other [facility] 08-18-2022 14:08-0500 Heart rate 65 /min Reza [employer] [facility] 08-18-2022 14:08-0500 SaO2% (BldA) [Mass fraction] 95 % [employer] [facility] 08-18-2022 14:08-0500 Diastolic blood pressure 73 mm[Hg] Reza Proctor [facility] 08-18-2022 14:08-0500 Mean blood pressure 85 mm[Hg] [employer] [facility] 08-18-2022 14:08-0500 Systolic blood pressure 110 mm[Hg] [employer] [facility] 08-18-2022 14:08-0500 Respiratory rate 18 /min Reza Brown [facility] 08-18-2022 13:04-0500 Heart rate 71 /min Reza Brown [facility] 08-18-2022 13:04-0500 SaO2% (BldA) [Mass fraction] 92 % Reza Brown [facility] 08-18-2022 12:10-0500 SaO2% (BldA) [Mass fraction] 94 % Reza Proctor [facility] 08-18-2022 12:06-0500 Heart rate 75 /min [employer] [facility] 08-18-2022 12:05-0500 Respiratory rate 18 /min Reza Brown [facility] 08-18-2022 12:04-0500 Diastolic blood pressure 70 mm[Hg] Reza Brown [facility] 08-18-2022 12:04-0500 Mean blood pressure 80 mm[Hg] Reza Brown [facility] 08-18-2022 12:04-0500 Systolic blood pressure 101 mm[Hg] Reza Brown [facility] 08-18-2022 12:04-0500 Body temperature 97.52 [degF] Reza Brown [facility] 08-18-2022 11:55-0500 Body temperature 97.7 [degF] Reza Brown [facility] 08-18-2022 11:55-0500 Diastolic blood pressure 66 mm[Hg] Reza Brown [facility] 08-18-2022 11:55-0500 Mean blood pressure 74 mm[Hg] Reza Brown [facility] 08-18-2022 11:55-0500 Respiratory rate 12 /min Reza Proctor [facility] 08-18-2022 11:55-0500 Systolic blood pressure 90 mm[Hg] Reza Proctor [facility] 08-18-2022 11:45-0500 Mean blood pressure 79 mm[Hg] Reza Proctor [facility] 08-18-2022 11:45-0500 Respiratory rate 16 /min Reza Proctor [facility] 08-18-2022 11:30-0500 Mean blood pressure 83 mm[Hg] Reza Proctor [facility] 08-18-2022 11:30-0500 Respiratory rate 12 /min Reza Proctor [facility] 08-18-2022 11:02-0500 Body temperature 97.16 [degF] Reza Proctor [facility] 08-18-2022 10:55-0500 Respiratory rate 10 /min Reza Proctor [facility] 08-18-2022 06:40-0500 Mean blood pressure 83 mm[Hg] Reza Proctor [facility] 08-18-2022 06:40-0500 Blood Pressure Location Reza Proctor [facility] 08-18-2022 06:40-0500 Heart rate 88 /min Reza Proctor [facility] 08-18-2022 06:39-0500 Body temperature 98.06 [degF] Reza Proctor [facility] 08-18-2022 06:38-0500 Blood Pressure Location Reza Proctor [facility] 08-16-2022 09:15-0500 Body height 158.75 cm Dinesh Bobo Other [employer] Other 08-16-2022 09:15-0500 Body mass index (BMI) [Ratio] 35.45 kg/m2 Dinesh Bobo Other [employer] Other 08-16-2022 09:15-0500 Body weight 89.36 kg Dinesh Bobo Other [employer] Other 08-16-2022 09:15-0500 Diastolic blood pressure 68 mm[Hg] Dinesh Bobo Other [employer] Other 08-16-2022 09:15-0500 SaO2% (BldA) [Mass fraction] 97 % Dinesh Bobo Other [employer] Other 08-16-2022 09:15-0500 Systolic blood pressure 108 mm[Hg] Dinesh Bobo Other [employer] Other 08-08-2022 15:39-0500 Diastolic blood pressure 77 mm[Hg] [employer] [facility] 08-08-2022 15:39-0500 Heart rate 71 /min [employer] [facility] 08-08-2022 15:39-0500 Mean blood pressure 90 mm[Hg] Reza [employer] [facility] 08-08-2022 15:39-0500 Systolic blood pressure 117 mm[Hg] [employer]za [employer] [facility] 08-08-2022 15:39-0500 Heart rate 77 /min [employer] [facility] 08-08-2022 15:39-0500 SaO2% (BldA) [Mass fraction] 100 % Reza Proctor [facility] 08-08-2022 15:38-0500 Diastolic blood pressure 81 mm[Hg] Reza Proctor [facility] 08-08-2022 15:38-0500 Mean blood pressure 98 mm[Hg] Reza Proctor [facility] 08-08-2022 15:38-0500 Systolic blood pressure 133 mm[Hg] Reza Proctor [facility] 08-08-2022 15:38-0500 Respiratory rate 16 /min Reza Proctor [facility] 11-15-2021 11:00-0400 Body height 158.75 cm Seb Bobo Other [employer] Other 11-15-2021 11:00-0400 Body mass index (BMI) [Ratio] 33.83 kg/m2 Seb Bobo Other [employer] Other 11-15-2021 11:00-0400 Body weight 85.28 kg Seb Bobo Other [employer] Other Encounters Encounter Date Encounter Type Care Provider Facility Start: 03-19-2025 End: 03-19-2025 ambulatory [facility] Start: 03-16-2025 End: 03-16-2025 ambulatory Dinesh Bobo MD Work Phone: [facility] Work Phone: Start: 03-16-2025 End: 03-16-2025 Patient encounter procedure Dinesh Bobo MD -[facility] Work Phone: Start: 03-15-2025 Non-patient / Non-visit Nigel Morin DO -[employer] Work Phone: Start: 03-11-2025 End: 03-11-2025 ambulatory Dinesh Bobo MD Work Phone: [facility] Work Phone: Start: 03-11-2025 End: 03-11-2025 Patient encounter procedure Toan Morin -[facility] [place] Work Phone: Start: 03-10-2025 Non-patient / Non-visit Imelda Robles [facility] -[facility] Work Phone: Start: 03-08-2025 Non-patient / Non-visit Germaine Núñez MD -[facility] Work Phone: Start: 02-18-2025 End: 02-18-2025 ambulatory Dinesh Bobo MD Work Phone: [facility] Work Phone: Start: 02-18-2025 End: 02-18-2025 Patient encounter procedure Jaylin Carrero BID CLERK -[facility] Work Phone: Start: 01-27-2025 End: 01-27-2025 ambulatory Dinesh Bobo MD Work Phone: [facility] Work Phone: Start: 01-27-2025 End: 01-27-2025 Patient encounter procedure Dinesh Bobo MD -[facility] Work Phone: Start: 01-13-2025 End: 01-13-2025 ambulatory Dinesh Bobo MD Work Phone: [facility] Work Phone: Start: 01-13-2025 End: 01-13-2025 Patient encounter procedure Dinesh Bobo MD -[facility] Work Phone: Start: 12-19-2024 End: 12-19-2024 ambulatory Dinesh Bobo MD Work Phone: [facility] Work Phone: Start: 12-19-2024 End: 12-19-2024 Patient encounter procedure Dinesh Bobo MD -[facility] Work Phone: Start: 11-21-2024 End: 11-21-2024 ambulatory Dinesh Bobo MD Work Phone: [facility] Work Phone: Start: 11-21-2024 End: 11-21-2024 Patient encounter procedure Dinesh Bobo MD Work Phone: [facility] Physician [facility] Work Phone: Start: 11-07-2024 End: 11-07-2024 Patient encounter procedure Dinesh Bobo MD Work Phone: [facility] [place] Work Phone: Start: 11-07-2024 End: 11-07-2024 ambulatory Imelda Jiang Facility:[facility] Start: 10-14-2024 Non-patient / Non-visit Dinesh Bobo MD Work Phone: [facility] Work Phone: Start: 10-14-2024 End: 10-14-2024 ambulatory Dinesh Bobo MD Work Phone: [facility] Work Phone: Start: 10-14-2024 End: 10-14-2024 Patient encounter procedure Dinesh Bobo MD Work Phone: [facility] Physician [facility] Work Phone: Start: 10-03-2024 End: 10-03-2024 Patient encounter procedure Dinesh Bobo MD Work Phone: [facility] [place] Work Phone: Start: 10-03-2024 End: 10-03-2024 ambulatory Dinesh Bobo MD Work Phone: [facility] Work Phone: Start: 10-01-2024 End: 10-01-2024 ambulatory [facility] Work Phone: Start: 10-01-2024 End: 10-01-2024 Patient encounter procedure [facility] Physician [facility] Work Phone: Start: 07-26-2024 Non-patient / Non-visit [facility] Physician [facility] Work Phone: Start: 07-25-2024 End: 07-25-2024 ambulatory [facility] Start: 07-04-2024 End: 07-04-2024 Patient encounter procedure [facility] Physician [facility] Work Phone: Start: 05-24-2024 ambulatory [facility] Start: 03-28-2024 End: 03-28-2024 ambulatory MD Dinesh Bobo Work Phone: [facility] Work Phone: Start: 03-28-2024 End: 03-28-2024 Patient encounter procedure MD Dinesh Bobo Work Phone: [facility] Work Phone: Start: 03-12-2024 End: 03-12-2024 Nursing evaluation of patient and report Breath Test [facility] Work Phone: [facility] Comment on above: Diarrhea, unspecifie d type (Primary Dx) Start: 01-07-2024 Non-patient / Non-visit MD Dinesh Bobo Work Phone: [facility] Physician [facility] Gastroenterology Work Phone: Start: 01-07-2024 End: 01-07-2024 Admission to same day surgery center MD Dinesh Bobo Work Phone: [facility] Work Phone: Start: 01-07-2024 End: 01-07-2024 ambulatory MD Dinesh Bobo Work Phone: [facility] Work Phone: Start: 12-13-2023 End: 12-13-2023 Patient encounter procedure MD Dinesh Bobo Work Phone: [facility] Physician [facility] Gastroenterology Work Phone: Start: 11-07-2023 Non-patient / Non-visit MD Dinesh Bobo Work Phone: [facility] Work Phone: Start: 11-02-2023 End: 11-02-2023 ambulatory MD Dinesh Bobo Work Phone: [facility] Work Phone: Start: 11-02-2023 End: 11-02-2023 Patient encounter procedure MD Dinesh Bobo Work Phone: [facility] [place] Work Phone: Start: 10-24-2023 Non-patient / Non-visit MD Dinesh Bobo Work Phone: [facility] Work Phone: Start: 10-22-2023 Non-patient / Non-visit MD Dinesh Bobo Work Phone: [facility] Work Phone: Start: 10-19-2023 Non-patient / Non-visit MD Dinesh Bobo Work Phone: [facility] Gastroenterology Work Phone: Start: 10-19-2023 End: 10-19-2023 Admission to same day surgery center MD Dinesh Bobo Work Phone: [facility] Work Phone: Start: 10-19-2023 End: 10-19-2023 ambulatory MD Dinesh Bobo Work Phone: [facility] Work Phone: Start: 10-03-2023 End: 10-03-2023 ambulatory [facility] Work Phone: Start: 10-03-2023 End: 10-03-2023 Patient encounter procedure [facility] Physician [facility] Gastroenter[facility] Work Phone: Start: 09-07-2023 End: 09-07-2023 ambulatory [facility] Work Phone: Start: 09-07-2023 End: 09-07-2023 Patient encounter procedure [facility] Physician [facility] Medical [facility] Work Phone: Start: 08-14-2023 Non-patient / Non-visit [facility] Physician [facility] Professional [employer] Work Phone: Start: 07-17-2023 End: 07-17-2023 ambulatory Dinesh Bobo Other [employer] Other Start: 07-17-2023 Telephone encounter Dinesh Bobo [facility] Start: 06-29-2023 End: 06-29-2023 ambulatory Dinesh Bobo Other [employer] Other Start: 06-29-2023 Office outpatient visit 15 minutes Dinesh Bobo [facility] Start: 06-29-2023 End: 06-29-2023 Patient encounter procedure [facility] Work Phone: Start: 10-11-2022 End: 02-26-2023 ambulatory Reza Proctor Facility:[facility] Start: 10-11-2022 End: 02-25-2023 Recurring Reza Proctor [facility] Start: 08-23-2022 End: 08-23-2022 ambulatory Dinesh Bobo Other [employer] Other Start: 08-23-2022 Telephone encounter Dinesh Bobo [facility] Start: 08-21-2022 End: 08-21-2022 ambulatory Dinesh Bobo Other [employer] Other Start: 08-21-2022 Telephone encounter Dinesh Bobo [facility] Start: 08-18-2022 End: 08-18-2022 ambulatory Reza Proctor Facility:[facility] Start: 08-18-2022 End: 08-18-2022 Admission to same day surgery center Reza Proctor [facility] Start: 08-16-2022 End: 08-16-2022 ambulatory Dinesh Bobo Other [employer] Other Start: 08-16-2022 Office outpatient visit 15 minutes Dinesh Bobo [facility] Start: 08-14-2022 End: 08-15-[address] DINESH BOBO Facility:[facility] Start: 08-08-2022 End: 08-09-2022 ambulatory Reza Proctor Facility:[facility] Start: 08-08-2022 End: 08-08-2022 Patient encounter procedure Reza Proctor [facility] Start: 01-23-2022 End: 02-18-[address] DINESH BOBO Facility:[facility] Start: 01-12-2022 End: 01-13-[address] DINESH BOBO Facility:[facility] Start: 01-09-2022 Gynecological examination normal Dinesh Bobo Other [employer] Other Start: 11-15-2021 End: 11-15-2021 ambulatory Seb Bobo Other [employer] Other Start: 11-15-2021 Office outpatient ne w 30 minutes Seb Bobo [facility] Start: 10-31-2021 End: 11-01-2021 ambulatory [...] collection please use: Cortisol PM: 2.3-11.9Performed at: [id number] [place], [place] [id number] Director: Lloyd Wu PhD, Phone: [phone] Start: 03-28-2024 Supine abdominal X-ray MD Dinesh [...] Activity Detail Author Start: 01-13-2025 Patient referral [facility] Work Phone: Start: 12-19-2024 Patient referral [facility] Work Phone: Start: 10-03-2024 [facility] Start: 03-28-2024 Elastase.pancreatic [Mass/mass] in Stool [facility] Start: 02-24-2024 Covid-19 Vaccine ( season) Covid-19 Vaccine () [facility] Start: 02-24-2024 Influenza vaccination Influenza Vacc ine (#1) [facility] Start: 01-07-2024 [facility] Start: 10-19-2023 [facility] Start: 09-07-2023 Patient referral [facility] Work Phone: Start: 2020 Diabetes Screening Diabetes Screenin g [facility] Start: 2020 Lipid panel Lipid Screening [facility] Start: 2020 Screening for malign ant neoplasm of colon [facility] Start: 2015 Screening for malign ant neoplasm of breast Mammogram Screening [facility] Start: 1996 Screening for malign ant neoplasm of cervix Cervical Cancer Screening [facility] Start: 1994 Hepatitis B Vaccine (1 of 3 - 19+ 3-dose series) Hepatitis B Vaccine (1 of 3 - 19+ 3-dose series) [facility] Start: 1994 Urine microalbumin profile DTaP,Tdap,Td Vaccine (1 - Tdap) [facility] Start: 1993 Anxiety Screening Anxiety Screening [facility] Start: 1993 Depression Screening Depression Scre ening [facility] Start: 1993 Hepatitis C screening Hepatitis C Sc reening [facility] Start: 1993 HIV screening HIV Screening [facility] CT Abdomen and Pelvis [facility] MG Breast - bilatera l Diagnostic [facility] MG Breast - bilatera l Screening [facility] Patient Education [facility] Work Phone: Patient referral [facility] Work Phone: [facility] Payers Date Payer Category Payer Self-pay 2022 Private Health Insurance 1975 Unknown [id number] 2.16.84 [id number] 1975 Unknown [id number] 2.16.84 [id number] 1975 Unknown [id number] 2.16.84 [id number] 1975 Unknown [id number] 2.16.84 [id number] 1975 Unknown [id number] 2.16.84 [id number] 1975 Unknown [id number] 2.16.8 [id number] 1975 Unknown [id number] 2.16.8 [id number] 1975 Unknown [id number] 2.16.8 [id number] 1959 Unknown [id number] 2.16.8 [id number] Unknown [id number] 2.16 [id number] Unknown [place] [id number] Unknown [id number] 2.16.8 [id number] Unknown [id number] 2.16.8 [id number] Unknown [id number] 2.16.8 [id number] Unknown [id number] 2.16.8 [id number] Social History Date Type Detail Facility Start: 03-12-2024 Sex Assigned At F [facility] Start: 08-08-2022 Tobacco smoking status Light tobacco smoker (finding) [facility] Start: 1975 Sex Assigned At Female F [facility] Start: 10-19-2023 End: 01-07-2024 Tobacco smoking status NHIS Smoker (finding) [facility] Tobacco smoking status [facility] Tobacco smoking consumption unknown [facility] Start: 09-18-2024 History of Social function [facility] National Score (1-100), lower number is lower risk 91 [facility] Start: 1975 Sex assigned at Not on file [facility] Start: 10-01-2024 End: 11-21-2024 Sex Female (finding) [facility] Start: 01-07-2024 End: 03-11-2025 Tobacco smoking status NHIS Smokes tobacco daily (finding) [facility] Medical Equipment Procedure Code Equipment Code Equipment Origin al Text Equipment Identifier Dates ULNAR NERVE TRANSPOSITION Reza Proctor DO A 08/18/22 Unknown Elbow L FDA Start: 08-18-2022 ULNAR NERVE TRANSPOSITION Reza Proctro DO A 08/18/22 Unknown Elbow L FDA Start: 08-18-2022 Goals Date Patient Goal Desired Activity /State Functional Status Date Assessment Result Facility 08-08-2022 Functional Status No [facility] Clinical Notes 11-15-2021 to 03-19-2025 Note Date & Type Note Facility 03-19-2025 Note [facility] Note Reason for cardiology visit: Follow-up on syncope HPI: 03/19/2025 Patient presented to the hospital on 03/08/2025 complaining of chest pain while she was in the shower, she first felt wobbly and weak, the pain radiated to the left jaw, she also had nausea. In the ED vitals were stable. High-sensitivity troponin was normal less than 4. BNP normal at 63. EKG showed nonspecific T wave abnormality. chest CTA was negative for PE or aortic dissection or pleural effusion. Echo was normal. She was discharged home and scheduled for stress test outpatient. On she had stress nuclear test However on 03/14/2025 and before she received the stress test result she presented again with left-sided chest pain radiating to the left arm and left jaw while she was watching football game which resolved with nitroglycerin. Again EKG was normal and troponin was negative. EKG no significant change. She does not recall if she ate prior to those episodes. She denies recurrence of chest pain however she still has episodes of dizziness with standing. She does not drink much caffeine probably 2 cups a week, she does not drink any alcohol, and she is drinking a lot of water. She continues to smoke half pack per day. Otherwise no exertional dyspnea, orthopnea or paroxysmal nocturnal dyspnea. No palpitations and no legs edema. 07/25/2024 Poornima Barker is a 49 y.o. female without prior cardiac history. She [...] tea. She drinks water and liquid IV. ROS: All systems were reviewed and they were negative except for the positive findings noted above in the history Past Medical History She has a past [...] Father Allergies Sulfanilamide Medications Current Outpatient Medications: albuterol 90 mcg/actuation inhaler, Inhale 2 puffs if needed each day., Disp: , Rfl: aspirin 81 mg EC tablet, Take 1 tablet by mouth in the morning., Disp: , Rfl: busPIRone (Buspar) 5 mg tablet, Take 1 tablet by mouth if needed in the morning and at bedtime for anxiety., Disp: , Rfl: escitalopram (Lexapro) 20 mg tablet, Take 1 tablet by mouth in the morning., Disp: , Rfl: esomeprazole (NexIUM) [address] capsule, Take 40 mg by mouth., Disp: , Rfl: nitroglycerin (Nitrostat) 0.4 mg SL tablet, if needed., Disp: , Rfl: Qulipta 30 mg tablet, Take 1 tablet by mouth in the morning., Disp: , Rfl: traZODone (Desyrel) 100 mg tablet, Take 100 mg by mouth at bedtime., Disp: , Rfl: Ubrelvy 100 mg tablet, Take 100 mg by mouth if needed., Disp: , Rfl: colestipol (Colestid) 1 gram tablet, Take 1 tablet by mouth Twice daily at 6am and 6pm. (Patient not taking: Reported on 03/19/2025), Disp: , Rfl: cranberry extract 425 mg capsule, as directed Orally (Patient not taking: Reported on 03/19/2025), Disp: , Rfl: Last Recorded Vitals Visit Vitals (more content not included)... [facility] 01-13-2025 Hospital Discharg e instructions Ambulatory OrdersReferral to ENT Time Frame: 01/13/25, Location: None Selected [facility] Work Phone: 12-19-2024 Evaluation note [...] depressive disorder acute January 27, 2025 1:30pm Sundance eye disease of both eyes acute February 18 10:38am Chronic migraine without aura or status migrainosus acute March 11, 2025 9:49am Status post ventriculo-peritoneal shunt placement acute March 11, 2025 9:49am [facility] Work Phone: 1(501) 476-360706-27-2025 Evaluation note* Diagnosis Onset Date Resolution Status [...] depressive disorder acute January 27, 2025 1:30pm Sundance eye disease of both eyes acute February 18, 2025 10:38am Chronic migraine without aur a or status migrainosus acute March 11, 2025 9:49am Status post ventriculo-peritoneal shunt placement acute March 11, 2025 9:49am Breast pain, left acute Septemb er 2024 2:28pm [facility] Work Phone: 1(222) 177-369805-30-2025 Evaluation note* Diagnosis Onset Date Resolution Status [...] canal mass acute January 13, 2025 1:08pm [facility] Work Phone: 1(679) 828-753105-30-2025 Evaluation note* Diagnosis Onset Date Resolution Status [...] canal mass acute January 13, 2025 1:08pm [facility] Work Phone: 1(202) 835-105305-30-2025 Evaluation note* Diagnosis Onset Date Resolution Status [...] depressive disorder acute January 27, 2025 1:30pm [facility] Work Phone: 1(757) 313-651704-09-2025 Evaluation note* Diagnosis Onset Date Resolution Status Admit Date Irritable bowel syndrome wit h diarrhea acute October 01, 2024 1:54pm [facility] Work Phone: 1(280) 440-888604-09-2025 Evaluation note* Diagnosis Onset Date Resolution Status Admit Date Irritable bowel syndrome wit h diarrhea acute October 01, 2024 1:54pm Sinusitis, acute maxillary acute October 14, 2024 9:48am Class 2 obesity with body ma ss index (BMI) of 36.0 to 36.9 in adult acute November 21, 2024 1 0:55am [facility] Work Phone: 1(398) 924-248004-09-2025 Evaluation note* Diagnosis Onset Date Resolution Status Admit Date Irritable bowel syndrome wit h diarrhea acute October 01, 2024 1:54pm Sinusitis, acute maxillary acute October 14, 2024 9:48am Class 2 obesity with body ma ss index (BMI) of 36.0 to 36.9 in adult acute November 21, 2024 1 0:55am Headache acute December 19 1:01pm Intracranial shunt acute November 242024 1:01pm [facility] Work Phone: 1(752) 850-220301-31-2025 [facility] Reason for [...] She reports 2 events of syncope same-day [id number] as described above RESPIRATORY: Denies SOB, coughing, [...] sinus arrhythmia, RSR nelson (more content not included)...[facility]01-10-2025 Evaluation note* Diagnosis Onset Date Resolution Status Admit Date Irritable bowel syndrome wit h diarrhea acute July 04 9:19am [facility] Work Phone: 1(800) 626-398609-18-2024 History of Present illness Narrative* Shelley Gamboa, NEO.TECHNOLOGY TRAINING ASSOCIATE - 03/12/2024 5:04 PM EDT Glucose - SIBO CPT 68567 Hydrogen Breath Test Poornima Barker 1975 March 12, 2024 Referring Physician: Imelda Jiang DO Indication: NSG TEST INDICATIONS: DIARRHEA R19.7 Weight: 183 lbs Location: [facility] Duration of Test: 2 Hours Hydrogen Methane CO2 MEASURED CORRECTION FACTOR TESTERS NAME Baseline 9:15 am 3 5 4.0 1.37 Maxine Rosa, RMA Test Solution Given: 100 gm Glucose 10 oz Liquid Maxine Lee, RMA #1 - 15 minutes 9:30 am [...] 11:15 am 11 9 3.1 1.77 Maxine Lee, RMA Guidelines Baseline < 10 ppm Hydrogen (H2) > 20 ppm over baseline Methane (CH4) > 20 ppm over baseline Final Test Results: Negative physician Signature:Shelley Gamboa APRN.CNP documented in [facility] Procedure [facility]04-26-2024 History and physical note Author Imelda Jiang [facility] October 19, 2023 9:55am Note Date/Time October 19, 2023 9:5 5am [facility] [address] [place] [address] Gastroenterology H&P Signed Patient: Poornima Barker MR#: [id number] : 1975 Acct:[id number] Age/Sex: 48 / F Adm Date: 4 Loc: Room: Type: [facility] Attending Dr: Imelda Jiang DO Copies to: [...] signed by Imelda Jiang DO> 10/19/23 0955 [facility] Work Phone: 1(552) 913-634804-26-2024 [facility] Procedure [facility]01-23-2024 Evaluation note* Encounter Date Diagnosis Assessment Notes Treatment Notes Treatment Clinical Notes Jun, Major depressive disorder with single episode, remission status unspecified (ICD-10 - F32.9) Jun, Insomnia, unspecified (ICD-10 - G47.00) [employer] Other 01-05-2024 Evaluation note* Encounter Date Diagnosis Assessment Notes Treatment Notes Treatment Clinical Notes Jun, Major depressive disorder with single episode, remission status unspecified (ICD-10 - F32.9) call or come in 1 month for recheck gave counseling options Jun, Insomnia, unspecified (ICD-10 - G47.00) as above [employer] Other 02-24-2023 Evaluation + Plan noteExtracted from: Title:ANES Post-operative Note Author:David Montaño MD Date:08/18/22 Plan Transfer/Discharge: Transfer/Discharge Discharge when meets criteria ( From PACU to Ambulatory Surgery Unit, and To home ). Extracted from: Title:ANES Pre-operative Note Author:Marito Montaño MD Date:08/18/22 Plan [place] [employer] Anesthesiologists (ASA) physical status classification: Class II. Anesthetic Preoperative Plan: Anesthesia General. Regional Interscalene block. 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 It is therefore advised notto drive until after your first office visit following surgery. Do not drive while taking pain medication. Reza Proctor, DO [facility] [address] [place] [address] Reviewed: 08/18/2022 06:11:36 Post Op Patient Instructions - FT (Custom) [facility]02-23-2023 Note [id number]:127[facility] 08-16-2022 Evaluation note* Encounter Date Diagnosis Assessment Notes Treatment Notes Treatment Clinical Notes Jul, Other non-recurrent acute nonsuppurative otitis media of both ears (ICD-10 - H65.193) Stop augmentin. Switch to zpack. Finish all antibiotic. Get OTC debrox for R ear treatment for cerumen. [employer] Other 07-22-2022 NotePROCEDURE: XR ELBOW LT MIN [...] Electronically authenticated by: ROSANNE PERKINS Date: 2022-01-13 07:40[facility]07-22-2022 NotePROCEDURE: XR ELBOW LT MIN [...] Electronically authenticated by: ROSANNE PERKINS Date: 2022-01-13 07:40[facility]05-24-2022 Evaluation note* Encounter Date Diagnosis [...] migraine type (ICD-10 - G43.909) October, S/P SLIP OPERATOR shunt (ICD-10 - Z98.2) [employer] Other evaluation + Plan note Future Appointments Appointment Date:08/18/2022 09:30:00 AM Scheduled Provider: Location:[facility] Appointment [facility] noteNo InformationNortGuthrie [facility] [employer] Other Evaluation note* Diagnosis Onset Date Resolution Status Screening mammogram for breast cancer acute [facility] Work Phone: Evaluation note* Diagnosis Onset Date Resolution Status Epigastric abdominal pain ac [place] GERD (gastroesophageal reflux disease) acute Screening mammogram for breast cancer acute Chronic constipation acute Epigastric abdominal pain ac [place] GERD (gastroesophageal reflux disease) acute Screening for colon cancer a cute [facility] Work Phone: Evaluation note* Diagnosis Onset Date Resolution Status Diarrhea acute Epigastric abdominal pain ac [place] GERD (gastroesophageal reflux disease) acute [facility] Work Phone: Evaluation note* Diagnosis Onset Date Resolution Status Diarrhea acute [facility] Work Phone: evaluation note* Diagnosis Diarrhea, unspecified type- Primary documented in this encounter [facility] Author Imelda Jiang [facility] January 07, 2024 12:35pm Note Date/Time January 07, 2024 12:3 5pm [facility] [address] [place] [address] Gastroenterology H&P Signed Patient: Poornima Barker MR#: [id number] : 1975 Acct:[id number] Age/Sex: 48 / F Adm Date: 4 Loc: Room: Type: [facility] Attending Dr: Imelda Jiang DO Copies to: [...] signed by Imelda Jiang DO> 01/07/24 1235 [facility] Work Phone: Hisxrtw general Narrative - Reported* Type Description Date Medical History Migrande headaches Surgical History Procedure:cyst removal;Disease: 1979 Surgical History Procedure:Tonsillectomy;Disease : 1992 Surgical History Procedure:laproscopic;Disease: 1999 Surgical History Procedure: section;Dise ase: 2004 Surgical History Procedure:gallbladder;Disease: 2005 Surgical History Procedure:Hysterectomy;Disease: 2005 Surgical History Procedure:shunt in head;Disease : 2009 Hospitalization History See [employer] Other Histrej general Narrative - Reported* Type Description Date Medical History Migraine headaches Medical History Pseudotumor cerebri syndrome Medical History Transfusion history Surgical History Procedure:cyst removal;Disease: 1979 Surgical History Procedure:Tonsillectomy;Disease : 1992 Surgical History Procedure:laproscopic;Disease: 1999 Surgical History Procedure: section;Dise ase: 2004 Surgical History Procedure:gallbladder;Disease: 2005 Surgical History Procedure:Hysterectomy;Disease: 2005 Surgical History Procedure:shunt in head;Disease : 2009 Hospitalization History See Sx [employer] Other Hismmbr general Narrative - Reported* Type Description Date [...] surgery 07/2022 Hospitalization History See Sx Hx [facility] [employer] Other Hospital course Narrative No data available for this section [facility] No data available for this section [facility] Discharge instructionsAmbulatory Orders* Referral to Neurology Time Frame: 12/19/24, Location: None Selected [facility] Work Phone: Progress note No data available for this section [facility] HospitalReason for visit NarrativeReferral Dinesh Jeramie Pseudotumor Cerebri SyndromeNortGuthrie Robert [facility] Hospital [facility] Other Reason for Referral Reason *FU 11/24 Papilled carlos and Visual Field Exams with DETAILED Interpretations and Reports Please Diagnosis 1 Pseudotumor cerebri (G93.2) Referral Organization [facility] urosurgery Referring Provider First Name Seb Referring Provider Last Name Jeramie Referring Provider Specialty Neurologica l Surgery Referred Organization [facility] Referred Provider Robi Parada Referred Address [address] [place], [place],[address] Referred Provider Specialty Ophthalmolog y Referral Priority Routine General Notes Sydnee Yvonne M 022 07:22:14 AM >Received and [...] Date/ Time Advance Directives No September 06, 11:23am Advance Directive Response Recorded Date/ Time [...] Date Irritable bowel syndrome with diarrhea A pri 2024 1:54pm Sinusitis, acute maxillary October 14, [...] 0pm Major depressive disorder January 27 1:30pm Sundance eye disease of both eyes January 10:38am Chronic migraine without aura or status migrainosus March 11, 2025 9:49am Status post ventriculo-peritoneal shunt placement March 11, 2025 9:49am Chief Complaint Admit Date headache follow up December 19, 2024 1:01 pm right ear fullness January 13, 2025 1:08 pm medication concerns January 27, 2025 1:3 0pm Left eye redness February 18, 2025 10 :38am Amb Documentation March 10, 2025 10:05am [facility] March 16, 2025 2:28pm Reason for Visit Admit Date Class 2 [...] 0pm Major depressive disorder January 27 1:30pm Sundance eye disease of both eyes January 10:38am Chronic migraine without aura or status migrainosus March 11, 2025 9:49am Status post ventriculo-peritoneal shunt placement March 11, 2025 9:49am Breast pain, left March 16, 2025 2:28pm Additional Source Comments Patient Care team informatio [...] 2023 Team Status: Active Member Role Status Ade [...] March 28, 2024 End: March 28, 2024 Bar Supervisor Relationship Specialty Start Date End Date Dinesh Bobo MD [address] [facility] [place] [address] PCP - General Family Medicine 03/12/24 Team [...] End: February 18, 2025 CLEMENT Sanches RN COMMERCIAL ASSISTANT-C Attending Provider Active Start: February 18, 2025 [...] March 11, 2025 End: March 11, 2025 Team Status: Active Member Role Status Dates Dinesh Bobo MD Primary Care Provider Active Start: March 15, 2025 Nigel Samano DO Attending Provider Active Sta rt: March 15, 2025 Team Status: Inactive Member Role Status Dates Dinesh Bobo MD Primary Care Provider Active Start: March 16, 2025 End: March 16, 2025 Dinesh Bobo MD Attending Provider Active St art: March 16, 2025 End: March 16, 2025 INFORMATION SOURCE (unrecogn ized section and content) DATE CREATED AUTHOR 08/17/2022 [facility] DATE CREATED AUTHOR AUTHOR'S ORGANIZ ATION 02/25/2023 [facility] DATE CREATED AUTHOR AUTHOR'S ORGANIZ ATION 05/25/2024 [facility] DATE CREATED AUTHOR AUTHOR'S ORGANIZ ATION 11/08/2024 [facility] DATE CREATED AUTHOR AUTHOR'S ORGANIZ ATION 03/20/2025 [facility] REASON FOR VISIT (unrecogniz ed section and [...] or prosecute any alcohol or drug abuse patient.[facility] FOR RECORDS PERTAINING TO PATIENTS WHO ARE [...] BE BASED ON THE PRIMARY CLINICAL RECORDS. [facility] [facility] [employer] [facility]. provides no warranty or guarantee of the accuracy or completeness of information in this document.
== END 2025-03-30 15:54 | disposition home or self-care (01) ==
PROVIDERS: PCP Family Medicine; Visit Provider Family Medicine
DX: R30.0 Dysuria (principal)
CPT/HCPCS: 87086; 87088; 87186

== ENCOUNTER 2025-04-23 13:52 | Outpatient (OUT) | payer OTHER, SELFPAY ==
--- OUTSIDE RECORDS SUMMARY | 2025-04-23 09:43 | XMS_ITS | Continuity of Care Document ---
Author Organization [facility] Address [address] [place] [address] Phone Care Team Providers Care Seconds Inspector Name Role Phone Birgit Baldwin MD Primary Care Provider Birgit Baldwin MD Attending Provider [phone] Jaylin Carrero APRN Attending Provider Andrew Núñez MD Attending Provider Imelda Robles CMA Attending Provider Toan Spangler DO Attending Provider Nigel Samano DO Attending Provider Care Teams Patient Care Team Team Status: Active Member Role/Relationship Status Dates Birgit Baldwin MD Primary Care Provider Active Visit Care Team Team Status: Inactive Member Role/Relationship Status Dates Birgit Baldwin MD Primary Care Provider Active Start: January 27, 2025 End: January 27, 2025[facility]git Baldwin [facility] ProviderActiveStart: January 27, 2025 End: January 27, 2025 Visit Care Team Team Status: Inactive Member Role/Relationship Status Dates Birgit Baldwin MD Primary Care Provider Active Start: February 18, 2025 End: February 18, 2025Jaylin Carrero APRN [employer] MERCHANT-CAttending Provider ActiveStart: February 18, 2025 End: February 18, 2025 Visit Care Team Team Status: Active Member Role/Relationship Status Dates Birgit Baldwin MD Primary Care Provider Active Start: March 08, 2025 Andrew Núñez MDAttending ProviderActiveStart: March 08, 2025 Visit Care Team Team Status: Active Member Role/Relationship Status Dates iBrgit Baldwin MD Primary Care Provider Active Start: March 09, 2025 Andrew Núñez MDAttending ProviderActiveStart: March 09, 2025 Visit Care Team Team Status: Active Member Role/Relationship Status Dates Birgit Baldwin MD Primary Care Provider Active Start: March 10, 2025 Emmanuel Bass ProviderActiveStart: March 10, 2025 Visit Care Team Team Status: Inactive Member Role/Relationship Status Dates Birgit Baldwin MD Primary Care Provider Active Start: March 11, 2025 End: March 11pepe Camacho DOAttending ProviderActive Start: March 11, 2025 End: March 11, 2025 Visit Care Team Team Status: Active Member Role/Relationship Status Dates Birgit Baldwin MD Primary Care Provider Active Start: March 15, 2025 Nigel Samano DOAttending ProviderActiveStart: March 15, 2025 Visit Care Team Team Status: Inactive Member Role/Relationship Status Dates Birgit Baldwin MD Primary Care Provider Active Start: March 16, 2025 End: March 16, 2025Veronica Conklin ProviderActiveStart: March 16, 2025 End: March 16, 2025 Visit Care Team Team Status: Active Member Role/Relationship Status Dates Birgit Baldwin MD Primary Care Provider Active Start: March 18, 2025 Emmanuel Bass ProviderActiveStart: March 18, 2025 Visit Care Team Team Status: Inactive Member Role/Relationship Status Dates Birgit Baldwin MD Primary Care Provider Active Start: March 30, 2025 End: March 30, 2025Veronica Conklin ProviderActiveStart: March 30, 2025 End: March 30, 2025 Patient Care Team Team Status: Inactive Member Role/Relationship Status Dates Birgit Baldwin MD Primary Care Provider Active Start: April 23, 2025 End: April 23, 2025Veronica Conklin ProviderActiveStart: April 23, 2025 End: April 23, 2025 Chief Complaint and Reason for Visit Chief Complaint Admit Date medication concerns January 27, 2025 1:3 0pm Left eye redness February 18, 2025 10 :38am Amb Documentation March 10, 2025 10:05am TBH March 16, 2025 2:28pm Amb Documentation March 18, 2025 1:47pm Unknown March 30, 2025 4: 00pm Poss UTI, Pinched nerve in arm March 272024 1:01pm Reason for Visit Admit Date Class 2 obesity with body ma ss index (BMI) of 35.0 to 35.9 in adult January 27, 2025 1:30pm Insomnia January 27, 2025 1:3 0pm Major depressive disorder January 27 1:30pm [place] eye disease of both eyes January 10:38am Chronic migraine without aura or status migrainosus March 11, 2025 9:49am Status post ventriculo-peritoneal shunt placement March 11, 2025 9:49am Breast pain, left March 16, 2025 2:28pm Chest pain March 16, 2025 2:28pm Screening mammogram for breast cancer Se ptember 2024 2:28pm Smoker March 16, 2025 2:28pm Vaginal yeast infection March 16, 2025 2:28pm Left shoulder pain April 23, 2025 1 :01pm Urinary frequency April 23, 2025 1 :01pm Reason for Referral Type Reason(s) Provider Provider Contact Information [facility] Address Start Date Increased frequency of urination R35.0 - Frequency of utefcmwnrmhW13.0 - Frequency of micturitionExecutive [id number] [place] [id number] 2024 Allergies, Adverse Reactions, Alerts Allergen Type Severity Reaction Last Updated Verified Status cefdinir Allergy Unknown Hives April 23, 2025 1:09pm Yes Active sulfadiazine Allergy Unknown Comment:Sulfa March 272024 1:09pm Yes Active sulfanilamide Allergy Unknown Hives March 1:09pm Yes Active Social History Smoking Status Status Start Date End Date Date of Observa tion Smokes tobacco daily (finding) March 11, 2025 10:19am Observation Status Observation Response Date of Response Legal Sex Female (finding) [facility] Family History Relationship Condition Age at Onset Recorded Date/T renée father Unknown History of strokeUnknownDisorder of thyroidUnknownDementiaUnknownmotherHeart diseaseUnknownMalignant neoplasm of breastUnknown Problems Active Problems Problem Diagnosis/Recorded Date Onset Date Stat Major depressive disorder September 05, 2023 2:09pm Unkn own Active Insomnia January 28, 2025 9:34am Unknown Acti ve Screening for colon cancer October 03, 2023 11:05am Un known Active Screening mammogram for breast cancer September 07, 2023 11:59am Unknown Active Sinusitis, acute maxillary October 17, 2024 10:56pm Un known Active Vaginal yeast infection March 16, 2025 3:50pm Un known Active Breast pain, left March 16, 2025 3:15pm Unknown Active Chronic constipation October 03, 2023 11:05am Unknown Active Urinary frequency April 23, 2025 1:27pm Unknown Active Acute effusion of both middle ears January 20, 2025 4:3 8pm Unknown Active [place] eye disease of both eyes February 18, 2025 10:53a m Unknown Active Diarrhea December 13, 2023 2:41pm Unknown Activ e Dysuria March 30, 2025 12:37pm Unknown Ac tive Headache December 09, 2024 2:03pm Unknown Activ e Syncope and collapse May 30, 2024 11:55am Unknow n Active Chronic migraine without aur a or status migrainosus March 11, 2025 10:05am Unknown Active Epigastric abdominal pain September 07, 2023 12:04pm Unk nown Active Irritable bowel syndrome with diarrhea July 04 025 10:39am Unknown Active Intracranial shunt September 05, 2023 2:09pm Unknown Active Status post ventriculo-perit garza shunt placement March 11, 2025 10:05am Unknown Active Left shoulder pain April 23, 2025 1:39pm Unknown Active Ear canal mass January 13, 2025 1:53pm Unknown Act edilson GERD (gastroesophageal reflux disease) September 06 12:04pm Unknown Active Chest pain March 16, 2025 3:48pm Unknown Active Class 2 obesity with body ma ss index (BMI) of 35.0 to 35.9 in adult December 23, 2024 1:40pm Unknown Active Smoker March 16, 2025 3:49pm Unknown Active Inactive/Resolved Problems Problem Diagnosis/Recorded Date Onset Date Stat us Class 2 obesity with body ma ss index (BMI) of 36.0 to 36.9 in adult November 21, 2024 11:16am Unknown Resolv ed Medications Medication Status Dose Units Route Directions Qty Days Refills S tart Date Stop Date End Date Reason(s) Instructions Adherence Pantoprazole 40 mg tablet,delayed release (DR/EC) Disc ontinued 0 .ROUTE.OIQOUXB193Cwo2023 10:35amJune 2023 11:24amTAKE 1 TABLET BY MOUTH DAILYTrazodone 100 mg tabletDiscontinued0.ROUTE.2023 10:35amSeptember 2023 8:06amTAKE 1 TABLET BY MOUTH ONCE DAILY AT BEDTIME Escitalopram Oxalate 20 mg tabletDiscontinued0.ROUTE.2023 10:35amSeptember 2023 8:06amTAKE 1 TABLET BY MOUTH EVERY DAYCholestyramine (With Sugar) 4 gram eipbiwBcsafnplmyli9HTMUWwfcf skpjc746224Cww 2023 12:00amJune 2023 1:11pmadminister w/meal; avoid other meds within 1hr before or 4-6hr after dosePantoprazole 40 mg tablet,delayed release (DR/EC) Discontinued0.ROUTE.BPLCQBA425Dvbu2023 11:24amJune 2023 1:33pmTAKE 1 TABLET BY MOUTH DAILYTrazodone 100 mg tabletDiscontinued0.ROUTE.ZQKSXAM811 March 06, 2024 8:06amDecember 2023 9:29amTAKE 1 TABLET BY MOUTH ONCE DAILY AT BEDTIMEEscitalopram Oxalate 20 mg tabletDiscontinued0.ROUTE.SDBQBKQ737 March 06, 2024 8:06amDecember 2023 9:29amTAKE 1 TABLET BY MOUTH EVERY DAYTrazodone 100 mg tabletDiscontinued0.ROUTE.NXZXPZF162Geteclok 11th, 2024 9:29amFebruary 2024 4:52pmTAKE 1 TABLET BY MOUTH ONCE DAILY AT BEDTIMEEscitalopram Oxalate 20 mg tabletDiscontinued0.ROUTE.ZTLZVUO657Lysedzzn 2023 9:29amJanuary 2024 10:40amTAKE 1 TABLET BY MOUTH EVERY DAY Rifaximin (Xifaxan) 550 mg sjutnuLdbjoaoeyxgz528SCYOVfpbq times bpmfa61571 August 11, 2024 1:00amMarch 2024 4:17pmTrazodone 100 mg tablet Discontinued0.ROUTE.NACVKHK706Hkqbfsvp 2024 4:51pmMay 2024 11:45am TAKE 1 TABLET BY MOUTH ONCE DAILY AT BEDTIMEEscitalopram Oxalate 20 mg tablet Discontinued0.ROUTE.TVNZOVU335Uedaentd 2024 4:51pmMay 2024 11:45am TAKE 1 TABLET BY MOUTH EVERY DAYRifaximin (Xifaxan) 550 mg evjcouEtgcethbkkfl160 MGPOThree times nurrt44090Paccl 2024 4:17pmMay 2024 11:10amTrazodone 100 mg tabletDiscontinued0.ROUTE.VHZANLU840Kyj2024 11:45amAugust 2024 1:49pmTAKE 1 TABLET BY MOUTH ONCE DAILY AT BEDTIMEEscitalopram Oxalate 20 mg tabletDiscontinued0.ROUTE.TXJIVOK940Ovv 29th, 2025 11:45amSeptember 2024 8:53amTAKE 1 TABLET BY MOUTH EVERY DAYUbrogepant (Ubrelvy) 100 mg tablet Evnsxbfmaxbi786PAAWPapv as needed for migraine smcddzxf403Zecs 2024 12:00amSeptember 2024 11:48amTrazodone 150 mg rubtbhMmzzyy105PXSXBmpmc at thqnrcv897Ysntho 2024 2:46pmComplies with drug therapyAlbuterol Sulfate 90 mcg/actuation HFA aerosol ygahgbkUwoswptzyjex0PRUPXIVQJIIXOHXPQZG 4-6 HOURS as needed for bronchospasm6.70August 2024 2:46pmSeptember 2024 8:53am Buspirone 5 mg mrolwdTkxlmyjtdovz3KGBHBbkaq daily as needed for cmsitnx944 February 24, 2025 1:47pmOctober 2024 8:53amAlbuterol Sulfate 90 mcg/actuation HFA aerosol jeowhuvJtqolh2RJZLQKUXBYGJPMBGFEG 4-6 HOURS as needed for bronchospasm6.70Sept2024 8:53amComplies with drug therapy Escitalopram Oxalate 20 mg tabletDiscontinued0.ROUTE.RJQZURP419Ugctrvujz 2024 8:53amOctober 2024 8:53amTAKE 1 TABLET BY MOUTH EVERY DAYUbrogepant (Ubrelvy) 100 mg opohjxKmweiw251HEBDCpyw as needed for migraine eoclhzmx899 March 20, 2025 11:48amComplies with drug therapyBuspirone 5 mg tablet Mjigcu2ZOASVrdhy daily as needed for kpqedrv899Pfasdgh 3rd, 2025 8:53amComplies with drug therapyFluconazole 150 mg ksoqgnCfqqwc346PRYFC3K81Ritwpee 3rd, 2025 8:53amComplies with drug therapyEscitalopram Oxalate 20 mg tabletDiscontinued0 .ROUTE.HUTKVFG887Shzesot 3rd, 2025 8:53amOctober 2024 1:11pmTAKE 1 TABLET BY MOUTH EVERY DAYNitrofurantoin Macrocrystal 100 mg uwwdkedNwegcsfajqvs120HFIS Twice vvhpk038Anqqyqp 7th, 2025 12:00amOctober 2024 11:17ammust administer with a meal/foodCiprofloxacin Hcl 250 mg hmzxhbGlydwdfuidtl584CJBAOrqii xtdne987 April 01, 2025 12:00amOctober 2024 1:26pmCranberry Fruit 400 mg capsule Qymcalzzesqu331JBMIJootrAghuq 2023 12:00amSeptember 2024 2:58pm administer with a mealSumatriptan Succinate 50 mg tabletDiscontinuedMGPOMarch 2023 12:00amApril 2023 10:42amFreeTextSig: TAKE 1 TABLET BY MOUTH EVERY DAY NEEDED Oral; Note: Source Status: Not-Taking\PRN; Refills: 0; Qty: 9 Each; Provider: JERAMIE ANGULOIAPantoprazole 40 mg tablet,delayed release (DR/EC) Ifvsgmhaxzmw72MFFOOeqdh928Uezvh 2023 12:00amMay 2023 10:35amPolymyxin B Sulf-Trimethoprim 10,000 unit- 1 mg/mL ltducWrcchztkkkqr2WXZIPQWU-ZQXYQmuac three cfiwl5982Vkbblj 2024 12:00amSeptember 2024 2:59pmwhile awake; do not exceed 6 doses in 24 hoursFluconazole 150 mg idzdpkTdumkecgwslu724SEQLR8R 20September 2024 12:00amOctober 2024 8:53amNitroglycerin 0.3 mg tablet, sublingualActive0.8TYZATJIRHCLXO4D as neededSeptember 2024 12:00am do not exceed 3 doses per episodeComplies with drug therapyAspirin 81 mg tablet Edtnsv20RDZITqkknPdmcfxkxb 2024 12:00amComplies with drug therapyAtogepant (Qulipta) 30 mg ubgtdpFcycwv58KAEUJgkfo556Dcgpdyxbw 2024 12:00amComplies with drug therapyMultivitamin (Daily Multi-Vitamin) vgcoboLvvhst3VUNGGQydfd April 23, 2025 12:00amComplies with drug therapyEscitalopram Oxalate 20 mg vvzpnbOoklzp96HQVKGynccMjufrgv 2024 1:10pmUnknownColestipol (Colestid) 1 gram asreztEmjjjj9CMSUHotgp hnvvs637Udbvhoa 2024 12:00amComplies with drug therapyTizanidine 4 mg quckxbBjqugb1RCPBXecdq at bedtime as needed for muscle vdjhoufbne326Szygsaf 2024 12:00amComplies with drug therapyEscitalopram Oxalate 20 mg npcgcnDudcqskbotme5EPGOHOemtcMadvvxdf 2023 1:00amFebruary 2023 4:16pmFreeTextSi tablet Orally Once a day; Note: Source Status: Refill; Provider: Jeramie Genao ETrazodone 100 mg iotwxxPbwzdaybgsby706UCEFEkjvq at bedtimeFebruary 2023 1:00amFebruary 2023 4:16pmTrazodone 100 mg krpjpcThxrfaifvbwk356NMGDQoyzk at izsjefi398Pcoctjpb 2023 4:16pmMay 2023 10:35amEscitalopram Oxalate 20 mg ylhiufNbjcigvmhyxo91BRFPWewyg751Cfsqyqir 2023 4:16pmMay 2023 10:35amFreeTextSi tablet Orally Once a day; Note: Source Status: Refill; Provider: Jeramie Genao EOndansetron Hcl 4 mg tablet Fcxtxnmysxnp8QCZLMkied 8 hours as needed for nausea and mnoiwqmj174Jbdvi 2023 12:00amJune 2023 1:12pmFamotidine 40 mg zbykaiHcpmpkkfegev41QFZSJlooa at pudlmfe24406Junnn 2023 12:00amDecember 2023 11:32amPantoprazole 40 mg tablet,delayed release (DR/EC)Hbhiai85EBGEZceiy hqabu033535Vwdq 2023 12:00amComplies with drug therapyColestipol 1 gram kgfozjJmgbeohykeit4DIXNDykwv ztrwu26689Mzzitaj 2023 12:00amJanuary 2024 10:27amEscitalopram Oxalate 20 mg epsjjxAlqvzxntcizu54ZMEZ.COMPLEXJanuary 2024 10:39amFebruary 2024 4:73mv41ci orallyOndansetron 4 mg tablet,disintegratingDiscontinued4 MGPOEvery 8 hours as needed for nausea and ufivovjt331Whznsyy 2024 1:00am December 19, 2024 1:32pmAlbuterol Sulfate 90 mcg/actuation HFA aerosol inhaler Jtjzjqvdhlvd0WXDWKGQAVJDPQLWBTBH 4-6 HOURS as needed for bronchospasm6.70April 2024 12:00amAugust 2024 2:46pmDoxycycline Hyclate 100 mg tablet Kqnahgyblrxp990IWCEOqeuh kvuys853Zswde 2024 12:00amMay 2024 10:57am Benzonatate 200 mg byqdgmyPbnledyxxaea334SXTU8-4 TIMES PER DAY as needed for xxldu233Gveig 2024 12:00amMay 2024 10:57amTirzepatide (Weight Loss) (Zepbound) 2.5 mg/0.5 mL pen injectorDiscontinued2.5MGSUBCUTevery bzhr46Evf 2024 12:00amJuly 2024 1:35pmfor 4 weeksMultivitamin (Daily Multi- Vitamin) nkucspUpzsuoqadjub4BNIYSYafreHqbv 2024 12:00amSeptember 2024 2:59pmOndansetron 4 mg tablet,llcmhzhqqhigsjSynckc2APLPXdvvy 8 hours as needed for nausea and uudptcbx899Ozuh 2024 1:32pmComplies with drug therapySemaglutide (Weight Loss) (Wegovy) 0.25 mg/0.5 mL pen injector Discontinued0.25MGSUBCUTevery ruun38Luba 2024 12:00amAugust 2024 1:53pmadminister weeks 1 through 4 of therapyTrazodone 150 mg tabletDiscontinued 150MGPODaily at eusfblj937Ceubqa 2024 1:47pmAugust 2024 2:46pm Buspirone 5 mg brljaiShhjzyqhdhfp9DFTQMdeib daily as needed for vuhiksn428Nvidoz 2024 12:00amSeptember 2024 1:47pmSemaglutide (Weight Loss) (Wegovy) 0.25 mg/0.5 mL pen injectorDiscontinued0.25MGSUBCUTevery dyak70Qngoaf 2024 1:53pmSeptember 2024 2:59pmadminister weeks 1 through 4 of therapy Procedures Procedure Date Performed Status Urine Culture March 30, 2025 completed Relevant Diagnostic Tests and/or Laboratory Data Laboratory Results Test Collection Date/Time Result Date/Time Result Interpretation Reference Range Result Comment Performing Site D-Dimer Quantitat edilson (PE/DVT) March 08, 2025 10:00pm March 08, 2025 10:00pm 0.63 mg/L FEU Above upper panic limits <=0.59 RESULTS CALLED TO ALLI BAUER RN @BY Jennifer Tolliver at 2253Increase s in D-Dimer concentratio n observed withthromboe mbolic events can be variable due to localization ,size, and age of the thrombus. Therefore, a thromboembol icevent cannot be diagnosed with certainty on the basis of thereference range. D-Dimers may also be elevated for a varietyof disorders including advanced age, , coronarydise ase, cancer, liver disease, infection, inflammation ,hematoma, DIC, trauma, post-surgery , diabetes, thrombolytic or anticoagulan t therapy, stress, and generalizedh ospitalizati on. B-Type Natriuretic PeptideSept2024 10:00pmSept2024 10:00pm63.0 pg/mL<=900.0Troponin I High SensitivitySept2024 10:00pm March 08, 2025 10:00pm<4.0 pg/mLBelow low normal4.0-51.3CUT-OFF POINTS HAVE BEEN ESTABLISHED BASED ON THE FOURTHIVERS DEFINITION OF MYOCARDIAL INFARCTION. THE UPPERREFERENCE LIMIT (URL) OF TROPONIN, DEFINED THE 99THPERCENTILE OF cTnI DISTRIBUTION IN A REFERENCE POPULATION,HAS BEEN CONFIRMED THE DECISION THRESHOLD FOR MIDIAGNOSIS.99TH PERCENTILE = 51.4 PG/MLNOTE: HIGH-SENSITIVITY TROPONIN ASSAY IS NOT INTENDED TO BEUSED IN ISOLATION BUT SHOULD BE INTERPRETED IN CONJUNCTIONWITH OTHER DIAGNOSTIC AND CLINICAL INFORMATION.Anion GapSept2024 10:00pmSept2024 10:00pm 18.7Basophils # (Auto)March 08, 2025 10:00pmSept2024 10:00pm 0.1 10 3/uL0.0-0.1C-Reactive Protein, QuantitativeSe2024 7:34am March 09, 2025 7:34am<0.50 mg/dL<=0.50Anion GapSept2024 7:34am 13.0Cholesterol/HDL RatioSept2024 7:34amS2024 7:34am 4.23.3 - 4.4 LOW RISK4.4 - 7.1 AVERAGE RISK7.1 - 11.0 MODERATE RISK>11.0 HIGH RISKTroponin I High SensitivitySept2024 7:34amSept2024 7:34am<4.0 pg/mLBelow low normal4.0-51.3CUT-OFF POINTS HAVE BEEN ESTABLISHED BASED ON THE FOURTHUNIVERSAL DEFINITION OF MYOCARDIAL INFARCTION. THE UPPERREFERENCE LIMIT (URL) OF TROPONIN, DEFINED THE 99THPERCENTILE OF cTnI DISTRIBUTION IN A REFERENCE POPULATION,HAS BEEN CONFIRMED THE DECISION THRESHOLD FOR MIDIAGNOSIS.99TH PERCENTILE = 51.4 PG/MLNOTE: HIGH-SENSITIVITY TROPONIN ASSAY IS NOT INTENDED TO BEUSED IN ISOLATION BUT SHOULD BE INTERPRETED IN CONJUNCTIONWITH OTHER DIAGNOSTIC AND CLINICAL INFORMATION.HematocritSeptember 2024 7:34amSeptember 2024 7:34am33.7 %Below low oflbbq80.0-48.0 Bedside Influenza Type A AntigenSept2024 9:44amSeptember 2024 9:44amNegativeNegative for Flu A protein antigen. Infection due to Flu Acannot be ruled out. Flu A antigen in thesample may bebelow the detection limit of the test.Anion GapSeptember 2024 12:36amSeptember 2024 12:36am11.9 HematocritSept2024 12:36amSeptember 2024 12:36am37.2 % 36.0-48.0Troponin I High SensitivitySept2024 3:04amSept2024 3:04am<4.0 pg/mLBelow low normal4.0-51.3CUT-OFF POINTS HAVE BEEN ESTABLISHED BASED ON THE FOURTHUNIVERSAL DEFINITION OF MYOCARDIAL INFARCTION. THE UPPERREFERENCE LIMIT (URL) OF TROPONIN, DEFINED THE 99THPERCENTILE OF cTnI DISTRIBUTION IN A REFERENCE POPULATION,HAS BEEN CONFIRMED THE DECISION THRESHOLD FOR MIDIAGNOSIS.99TH PERCENTILE = 51.4 PG/MLNOTE: HIGH-SENSITIVITY TROPONIN ASSAY IS NOT INTENDED TO BEUSED IN ISOLATION BUT SHOULD BE INTERPRETED IN CONJUNCTIONWITH OTHER DIAGNOSTIC AND CLINICAL INFORMATION.Urine ColorOctober 2024 1:40pmOctober 2024 1:42pmyellowBUN/Creatinine RatioSept2024 10:00pmSept2024 10:00pm13.9Basophils (%) (Auto)March 08, 2025 10:00pmSept2024 10:00pm0.7 %0.2-2.0Albumin/Globulin Ratio March 09, 2025 7:34am0.9Cholesterol LevelSeptember 2024 7:34am March 09, 2025 7:45mp597 mg/dL<=200HemoglobinSeptember 2024 7:34am March 09, 2025 7:34am11.2 g/dLBelow low frqeih02.0-16.0Bedside Influenza Type B AntigenSept2024 9:44amSeptember 2024 9:44amNegative Negative for Flu B protein antigen. Infection due to Flu Bcannot be ruled out. Flu B antigen in thesample may bebelow the detection limit of the test. BUN/Creatinine RatioSeptember 2024 12:36amSeptember 2024 12:36am14.1 HemoglobinSeptember 2024 12:36amSept2024 12:36am12.4 g/dL 12.0-16.0Urine AppearanceOctober 2024 1:40pmOctober 2024 1:42pmclear Blood Urea NitrogenSeptember 2024 10:00pmSeptember 2024 10:00pm16.0 mg/dL7.0-18.0Eosinophils # (Auto)March 08, 2025 10:00pmSeptember 2024 10:00pm0.3 10 3/uL0.0-0.7AlbuminSeptember 2024 7:34am2.8 g/dLBelow low normal3.4-5.0HDL CholesterolSeptember 2024 7:34amSeptember 2024 7:34am42 mg/dL40-60> or =60 mg/dl - LOW CARDIOVASCULAR RISK<40 mg/dl - HIGH CARDIOVASCULAR RISKMean Corpuscular HemoglobinSeptember 2024 7:34am March 09, 2025 7:34am29.2 pg26.7-34.0Blood Urea NitrogenSeptember 2024 12:36amSeptember 2024 12:36am13.0 mg/dL7.0-18.0Mean Corpuscular HemoglobinSeptember 2024 12:36amSeptember 2024 12:36am29.3 pg 26.7-34.0Urine Specific GravityOctober 2024 1:40pmOctober 2024 1:42pm1.000Calcium LevelSeptember 2024 10:00pmSept2024 10:00pm 8.8 mg/dL8.5-10.1Eosinophils (%) (Auto)March 08, 2025 10:00pmSeptember 2024 10:00pm2.2 %0.9-7.0Alkaline PhosphataseSeptember 2024 7:34am64 U/Q03-841DZU Cholesterol, CalculatedSept2024 7:34amSeptember 2024 7:34am94.0 mg/dL<100 mg/dl CJRFSVU089-049 mg/dl NEAR OR ABOVE HJRYGWY346- 159 mg/dl BORDERLINE AKLU855-304 mg/dl HIGH>190 mg/dl VERY HIGHMean Corpuscular Hemoglobin ConcentSeptember 2024 7:34amSeptember 2024 7:34am33.2 g/dL29.9-35.2Calcium LevelSeptember 2024 12:36amSeptember 2024 12:36am8.9 mg/dL8.5-10.1Mean Corpuscular Hemoglobin ConcentSept2024 12:36amSeptember 2024 12:36am33.3 g/dL29.9-35.2Urine pHOctober 2024 1:40pmOctober 2024 1:52ep6Oaoasqcj LevelSeptember 2024 10:00pm March 08, 2025 10:09gr962 mmol/LAbove high smbkan18-185OmehrpjgvpLttsobswe 2024 10:00pmSeptember 2024 10:00pm38.3 %36.0-48.0Alanine Aminotransferase (ALT/SGPT)March 09, 2025 7:34am14 U/K58-20Ttiphupdqeyko LevelSeptember 2024 7:34amSeptember 2024 7:70ev882 mg/dLAbove high normal<=150Mean Corpuscular VolumeSeptember 2024 7:34amSeptember 2024 7:34am87.8 fL81.0-99.0Chloride LevelSeptember 2024 12:36amSept2024 12:26td578 mmol/LAbove high vsvsca95-736Djru Corpuscular Volume March 15, 2025 12:36amSeptember 2024 12:36am87.9 fL81.0-99.0Urine Leukocyte EsteraseOctober 2024 1:40pmOctober 2024 1:42pmnegative Carbon Dioxide LevelSeptember 2024 10:00pmSeptember 2024 10:00pm21.0 mmol/L21.0-32.0HemoglobinSept2024 10:00pmSeptember 2024 10:00pm12.8 g/dL12.0-16.0Aspartate Amino Transf (AST/SGOT)March 09, 2025 7:34am12 U/LBelow low -39UFRK CholesterolSeptember 2024 7:34am March 09, 2025 7:34am42.0 mg/dLMean Platelet VolumeSeptember 2024 7:34amSeptember 2024 7:34am9.3 fLBelow low normal9.5-13.5Carbon Dioxide LevelSeptember 2024 12:36amSeptember 2024 12:36am26.0 mmol/L 21.0-32.0Mean Platelet VolumeSeptember 2024 12:36amSept2024 12:36am9.3 fLBelow low normal9.5-13.5Urine NitriteOctober 2024 1:40pm April 23, 2025 1:42pmNegativeCreatinineSeptember 2024 10:00pmSeptember 2024 10:00pm1.15 mg/dLAbove high normal0.55-1.02Immature Granulocyte # (Auto)March 08, 2025 10:00pmSeptember 2024 10:00pm0.06 10 3/uLAbove high normal0.00-0.03BUN/Creatinine RatioSeptember 2024 7:34am18.0Platelet CountSeptember 2024 7:34amSeptember 2024 7:51qb767 10 3/qL904-051 CreatinineSeptember 2024 12:36amSeptember 2024 12:36am0.92 mg/dL 0.55-1.02Platelet CountSeptember 2024 12:36amSeptember 2024 12:36am 343 10 3/vU849-084Newnk ProteinOctober 2024 1:40pmOctober 2024 1:42pmnegativeEstimated GFR ()March 08, 2025 10:00pm March 08, 2025 10:00pm>60>=60 mL/min/1.73m 2Immature Granulocyte % (Auto) March 08, 2025 10:00pmSeptember 2024 10:00pm0.5 %0.0-0.5Blood Urea NitrogenSeptember 2024 7:34am16.0 mg/dL7.0-18.0Red Blood CountSeptember 2024 7:34amSeptember 2024 7:34am3.84 10 6/uLBelow low normal 4.20-5.40Estimated GFR ()March 15, 2025 12:36amSeptember 2024 12:36am>60>=60 mL/min/1.73m 2Red Blood CountSeptember 2024 12:36amSeptember 2024 12:36am4.23 10 6/uL4.20-5.40Urine Glucose (UA) April 23, 2025 1:40pmOctober 2024 1:42pmnegativeEstimated GFR (Non- AmericanSept2024 10:00pmSeptember 2024 10:08sc08Fmbma low normal>=60 mL/min/1.73m 2Lymphocytes # (Auto)March 08, 2025 10:00pm March 08, 2025 10:00pm2.8 10 3/uL1.2-3.8Calcium LevelSeptember 2024 7:34am8.3 mg/dLBelow low normal8.5-10.1Red Cell Distribution WidthSeptember 2024 7:34amSeptember 2024 7:34am13.6 %11.0-15.0Estimated GFR (Non- AmericanSept2024 12:36amSept2024 12:36am>60>=60 mL/min/1.73m 2Red Cell Distribution WidthSeptember 2024 12:36amSept2024 12:36am13.5 %11.0-15.0Urine KetonesOctober 2024 1:40pmOctober 2024 1:42pmnegativeGlucose LevelSeptember 2024 10:00pmSeptember 2024 10:74vm148 mg/dLAbove high zvidta33-105Oadqbvgqgfb (%) (Auto) March 08, 2025 10:00pmSeptember 2024 10:00pm21.7 %20.5-60.0Chloride LevelSeptember 2024 7:59ur063 mmol/LAbove high -259Cmizdaytn White Blood CountSeptember 2024 7:34amSeptember 2024 7:34am9.8 10 3/uL 4.0-11.0Glucose LevelSept2024 12:36amSeptember 2024 12:12ec152 mg/kI04-038Ipiiwucmm White Blood CountSeptember 2024 12:36amSeptember 2024 12:36am12.8 10 3/uLAbove high normal4.0-11.0Urine UrobilinogenOctober 2024 1:40pmOctober 2024 1:42pm0.2Potassium LevelSeptember 2024 10:00pmSeptember 2024 10:00pm3.7 mmol/L3.5-5.1Mean Corpuscular Hemoglobin March 08, 2025 10:00pmSept2024 10:00pm29.2 pg26.7-34.0Carbon Dioxide LevelSept2024 7:34am26.8 mmol/L21.0-32.0Potassium Level March 15, 2025 12:36amSeptember 2024 12:36am3.9 mmol/L3.5-5.1Urine BilirubinOct2024 1:40pmOctober 2024 1:42pmnegativeSodium Level March 08, 2025 10:00pmSept2024 10:18lx446 mmol/M554-799Awjo Corpuscular Hemoglobin ConcentSept2024 10:00pmSept2024 10:00pm33.4 g/dL29.9-35.2CreatinineSept2024 7:34am0.89 mg/dL 0.55-1.02Sodium LevelSept2024 12:36amSept2024 12:18xl566 mmol/L653-409Xibhq Occult BloodOct2024 1:40pmOctober 2024 1:42pmnegativeMean Corpuscular VolumeSept2024 10:00pmSept2024 10:00pm87.4 fL81.0-99.0Estimated GFR ()March 09, 2025 7:34am>60>=60 mL/min/1.73m 2Monocytes # (Auto)March 08, 2025 10:00pm March 08, 2025 10:00pm0.8 10 3/uL0.3-0.8Estimated GFR (Non- AmericanSept2024 7:34am>60>=60 mL/min/1.73m 2Monocytes (%) (Auto) March 08, 2025 10:00pmSept2024 10:00pm6.0 %1.7-12.0Globulin March 09, 2025 7:34am3.2 g/dLMean Platelet VolumeSeptember 2024 10:00pmSept2024 10:00pm9.5 fL9.5-13.5Glucose LevelSeptember 2024 7:34am95 mg/wN04-623Oyjrdhbrlbu # (Auto)March 08, 2025 10:00pm March 08, 2025 10:00pm9.0 10 3/uLAbove high normal1.4-6.5Potassium Level March 09, 2025 7:34am3.8 mmol/L3.5-5.1Neutrophils (%) (Auto)March 08, 2025 10:00pmSept2024 10:00pm68.9 %43.0-75.0Sodium Level March 09, 2025 7:18ct958 mmol/B718-410Pgkmdlkb CountSeptember 2024 10:00pmSeptember 2024 10:44wy581 10 3/jM538-533Ktsqs BilirubinSept2024 7:34am0.2 mg/dL0.2-1.0Red Blood CountSeptember 2024 10:00pm March 08, 2025 10:00pm4.38 10 6/uL4.20-5.40Total ProteinSept2024 7:34am6.0 g/dLBelow low normal6.4-8.2Red Cell Distribution WidthSeptember 2024 10:00pmSept2024 10:00pm13.3 %11.0-15.0Corrected White Blood CountSeptember 2024 10:00pmSeptember 2024 10:00pm13.0 10 3/uL Above high normal4.0-11.0 Microbiology Results Procedure Source Result Collection Date/Time Result Date/Time Result Comment Performing Site Urine Culture Urine Klebsiella pneumoniae Octob er 2024 4:00pm April 01, 2025 9:49am [facility] [id number] [address] [place] [id number] Vital Signs Vital Reading Result Reference Range Collection Date/Time Height 61 [in_i] January 27, 2025 1:10evInuywv51.18 kgAugust 2024 1:31pmHeart Rate85 /min 60-100August 2024 1:31pmBP Hiyetuqa01 mm[Hg]100-140August 2024 1:31pm BP Wruwqtaok46 mm[Hg]60-100August 2024 1:31pmBMI (Body Mass Index)35.9 kg/d4Gzlqze 2024 1:11sgCuklst06 [in_i]February 18, 2025 10:46rmFejnup09.72 kgAugust 2024 10:43amBody Wwaofpbghqb75.6 [degF]97.6-99.0August 2024 10:43amHeart Rate66 /ajd91-698Zdhfqa 2024 10:43amRespiratory rate18 /min 12-24Au2024 10:43amOxygen saturation by Pulse hqxiuexr24 %95-100 February 18, 2025 10:43amBP Izsexpoz409 mm[Hg]100-140August 2024 10:43amBP Mnmwhvlbp33 mm[Hg]60-100August 2024 10:43amBMI (Body Mass Index)34.5 kg/b6Adwvkq 2024 10:15dhRdotla10.18 kgSeptember 2024 9:55amHeart Rate70 /gpz05-657Jeobyyrsh 2024 9:55amOxygen saturation by Pulse oximetry 97 %95-100September 2024 9:55amBP Nvmjemjj077 mm[Hg]100-140September 2024 9:55amBP Pwigxmjqp67 mm[Hg]60-100September 2024 9:61imDtgxhf17 [in_i]March 16, 2025 2:27auOvnsbk60.18 kgSeptember 2024 2:52pmHeart Rate71 /fgr76-226Ssrqjgwak 2024 2:52pmOxygen saturation by Pulse oximetry 97 %95-100September 2024 2:52pmBP Egzzcpwr47 mm[Hg]100-140September 2024 2:52pmBP Ymxykbmfz65 mm[Hg]60-100September 2024 2:52pmBMI (Body Mass Index)34.7 kg/t2Jjafnfrzo 2024 2:24tzKtsaoa39 [in_i]April 23, 2025 1:79gwPwlszr14.72 kgOctober 2024 1:03pmHeart Rate76 /tkx88-277Ogzbvic 2024 1:03pmBP Cihhzblj226 mm[Hg]100-140October 2024 1:03pmBP Bwixdyuzi14 mm[Hg]60-100October 2024 1:03pmBMI (Body Mass Index)34.5 kg/m2 April 23, 2025 1:03pm Advance Directives Advance Directive Response Recorded Date/ Time Advance Directives No February 10:19am Insurance Providers Guarantor Katherin Devi Lucero Address [address] [id number] Info.Home Phone: Payer Group Member ID Coverage Type Subscriber Relationship to Subscriber Effective Date Expiration Date [place] Id: [id number] [place] Id: [id number] [address] [address] Home Phone: Email: [email or web address] Encounter Location(s) Arrival/Admit Date Discharge/Departure Date Discharge/Departure Disposition Provider(s) Departed Physician/ Provider Office Visit -[facility] January 27, 2025 1:30pm January 27, 2025 1:58pm Discharged to home care or self care (routine discharge) Birgit Baldwin MD Departed Physician/ Provider Office Visit -[facility] February 18, 2025 10:38am February 18, 2025 10:52am Discharged to home care or self care (routine discharge) Jaylin Carrero APRN Non-patient / Non-visit -[facility] March 08, 2025 10:00pm Raul Esparza-patient / Aic-gvyra-[facility]dwvl [facility]September 2024 12:25amRaul Esparza-patient / [facility] 10:05amImelda Robles CMADeparted Physician/Provider [facility] 9:49am[facility] 2024 10:19amDischarged to home care or self care (routine discharge)Patience Cuba-patient / Dtn-qvjio-Cbvzd [employer] [facility] 2024 12:36amPatience Ahmadi DODeparted Physician/Provider [facility] 2:28pmSeptember 2024 3:21pmDischarged to home care or self care (routine discharge)Raul Conklin-patient / Zve[facility]lmhxs[facility] March 18, 2025 1:47pmImelda Robles CMADeparted Referred-[facility] 2024 4:00pmOctober 2024 4:01pmDischarged to home care or self care (routine discharge)VIDYA Conklineparted Physician/Provider [facility] 20[facility] 1:01pm April 23, 2025 1:42pmDischarged to home care or self care (routine discharge)Birgit Baldwin MD Recent Diagnosis Onset Date Admit Date Class 2 obesity with body ma ss index (BMI) of 35.0 to 35.9 in adult Unknown January 27, 2025 1:30pm Insomnia Unknown January 27, 2025 1:30pm Major depressive disorder Unknown January 27, 2025 1:30pm [place] eye disease of both eyes Unknown [facility] 2024 10:38am Chronic migraine without aur a or status migrainosus Unknown March 11, 2025 9:49am Status post ventriculo-perit garza shunt placement Unknown March 11, 2025 9:49am Breast pain, left Unknown February 2:28pm Chest pain Unknown March 16, 2025 2:28pm Screening mammogram for breast cancer Unknown March 16, 2025 2:28pm Smoker Unknown March 16, 2025 2:28pm Vaginal yeast infection [facility] 2:28[facility] Left shoulder pain Unknown April 23, 2025 1:01pm Urinary frequency Unknown April 23, 2025 1:01pm Assessments Diagnosis Onset Date Resolution Status Admit Date Class 2 obesity with body mass index (BM I) of 35.0 to 35.9 in adult acuteAugust 2024 1:30pmInsomniaacuteAugust 2024 1:30pmMajor depressive disorderacuteAugust 2024 1:30pmPink eye disease of both eyesacuteAugust 2024 10:38amChronic migraine without aura or status migrainosusacute March 11, 2025 9:49amStatus post ventriculo-peritoneal shunt placement acuteSept2024 9:49amBreast pain, leftacuteSept2024 2:28pmChest painacuteSeptember 2024 2:28pmScreening mammogram for breast canceracuteSept2024 2:28pmSmokeracuteSeptember 2024 2:28pm Vaginal yeast infectionacuteSeptember 2024 2:28pmLeft shoulder painacute April 23, 2025 1:01pmUrinary frequencyacuteOct2024 1:01pm Plan of Treatment Author Jaylin Carrero [facility] 20[facility] 10:54amStart medication as prescribed. Apply warm compresses for 5- 10 minutes to help relieve pain. Avoid using any makeup removers. Keep eye clean. Use only clean wash clothes, do not share towels with others in order to prevent spreading of bacteria. RTC if no relief after 3 days of treatment. Pt understands treatment plan. Author Birgit Baldwin [facility] 2024 3:50pmLast mamm was September 2023. Pt requests testing at [facility] as above. [facility] Cardiology was able to move up her appt to 03/19. Encouraged quitting smoking. Fluconazole prescribed. recent antibiotics. Author Toan Camacho [facility] 10:22amPatient has a history of [employer] shunt placement at [facility] approximately 12 years ago for idiopathic intracranial hypertension placed by Dr. Baldwin. CT scan of the brain in November 2024 shows stable shunt and ventricular size. Plan: Shunt care as suggested per neurosurgery. Important consideration as MRI will likely not be possible for this patient or if needed shunt will need to be adjusted accordingly It is my impression that the patient has chronic headaches which occur almost daily. They seem to have a substantial amount of migrainous features. The patient was seen at [facility] emergency department for ongoing concern for headaches and had a CT scan of the brain which was unremarkable for acute pathology and showed stable ventricular size and shunt placement. Patient has trialed and failed Depakote, buspirone and also topiramate. She is on Ubrelvy which is helping but due to her number of migraine days a preventative medication is more appropriate. Plan: Start Qulipta 30 mg p.o. daily for migraine prevention. Side effects discussed in detail. Patient understands and wishes to proceed. I asked the patient to use her remaining Ubrelvy as needed and combine with ibuprofen, hydration and Benadryl to abort an acute migraine Patient may need increased dose of Qulipta in the future pending response Author Birgit Baldwin [facility] 2024 9:35amcontinue lexapro, add buspar for anxiety symptoms. Increase dose of trazodone sent. Michele resent and will watch for a PA about it. Future Tests Future scheduled test information is unavailable Pending Tests Test Name Ordered Date Scheduled Date MM diagnostic mammo BI w/CAD March 16 3:15pm XR shoulder LT min 2V*April 23, 2025 1:38pm Future Visits Future appointment information is unavailable Future Procedures Future procedure information is unavailable Future Medications Future medication information is unavailable Patient Instructions Patient instructions are unavailable Hospital Discharge Instructions Ambulatory Orders* Referral to Urology Time Frame: 04/23/25, Location: None Selected
--- NOTE | 2025-04-23 14:02 | XR_ITS ---
The [address] [address] Patient Name: POORNIMA RIVERA MRN: [id number] date: 1975 Sex: F Assigned Patient Location: [facility] Current Patient Location: [facility] Accession/Order Number: [id number] Exam Date: 04/23/2025 14:05 Report Date: 04/23/2025 22:16 At the request of: DINESH BOBO MD Procedure: XR shoulder LT min 2V 3 views left shoulder CLINICAL HISTORY: Left Shoulder Pain COMPARISON: None FINDINGS: No fracture-dislocation. Joint spaces preserved. Soft tissues unremarkable. Left lung apex is clear. XR/XR shoulder LT min 2V IMPRESSION: No acute bony process. Impression dictated by: Lisandro Glass M.D. 04/23/2025 10:16 PM Dictation Location: [place] [address] Electronically authenticated by: [id number] Y Date: 04/23/2025 22:16
--- OUTSIDE RECORDS SUMMARY | 2025-04-23 14:08 | XMS_ITS | CCD ---
Author Organization [facility] Care Team Providers Care Supply Planner Name Role Phone Seb Bobo Unavailable DINESH BOBO Primary Care Physician [phone] [address], DR DINESH Franco Admitting Unavailable BOBO, [...] Care Provider DO Imelda Jiang Attending Provider [phone] MD Dinesh Bobo Primary Care Provider DO Imelda Jiang Attending Provider Dinesh Bobo MD Primary Care Provider Dinesh Bobo MD Primary Care Provider Ly Woo BARRETOe Michelle Attending Provider Dinesh Bobo MD Primary Care Provider Imelda Jiang DO Attending Provider Dinesh Bobo MD Attending Provider [phone] Tayla Vargas CMA Attending Provider Unavailabl e Dinesh Bobo MD Primary Care Provider Imelda Jiang DO Attending Provider Dinesh Bobo MD Attending Provider Dinesh Bobo MD Primary Care Provider Jaylin Carrero APRN Attending Provider Dinesh Bobo MD Primary Care Provider Dinesh Bobo MD Attending Provider Germaine Núñez MD Attending Provider Imelda Robles CMA Attending Provider Unavaila ble Toan Camacho DO Attending Provider Nigel Samano DO Attending Provider VAN HERNANDEZ Attending Unavailable VAN HERNANDEZ Attending Unavailable Dinesh Bobo MD Primary Care Provider Dinesh Bobo MD Attending Provider Dinesh Bobo Primary Care Unavailable Dinesh Bobo E Admitting Unavailable Dinesh Bobo Attending Unavailable Dinesh Bobo E Primary Care Unavailable Ly, Imelda L Attending Unavailable Ly, Imelda L Admitting Unavailable Jeramie Dinesh E Primary Care Unavailable Ly, Imelda L Attending Unavailable Ly, Imelda L Admitting Unavailable Allergies Allergy ClassificationReported Allergen(s)Allergy TypeDate of OnsetReaction(s) Facility (20 sources)Sulfanilamide; Translations: [SULFANILAMIDE]Drug Uipmuma97-16-0428 [facility] (4 sources)Sulfonamides (Antibiotic); Translations: [sulfa drugs]Drug [facility] ([facility])Sulfonamides (Antibiotic)Drug allergy (disorder)77-93-1797[facility] (20 sources)cefdinirDrug Axufprq41-47-1306MngloieSouth[facility] (2 sources)AmoxicillinDrug Ewwnrom01-34-2104LPGZLKHIKDBOjcxh [facility] Other (2 sources)PseudoephedrineDrug AllergyUnkEastern [facility] Hospital [facility] Other (19 sources)sulfADIAZINEDrug Pbnpsai20-60-9268Ykbahcd:[facility] (2 sources)Substance with sulfonamide structure and antibacterial mechanism of action (substance)Drug bwzukfy10-77-4762WKQLZQlaxu [facility] Other (2 sources)Allergies ReconciledPropensity to adverse reactionsWesterly Hospital [facility] Other (2 sources)patient allergy list reviewed by nurse or physiciaPropensity to adverse fquuvhakp89-90-5437Kklyxuq:[place] [facility] Other (2 sources)12 Hour DecongestantAllergy to bikhnxvcy60-00-3741MclkeQvyelpogrCorey Hospital (1 source)cefdinirDrug Isrbddp48-04-9116BidzjofgkT[facility] (1 source)sulfADIAZINEDrug Ffdqzow23-37-3087UcfyjqhsvToledo Hospital Repository Medications Current Medications MedicationDrug Class(es)DatesSig (Normalized)Sig (Original)Albuterol Sulfate 90 mcg/actuation HFA aerosol inhaler (2 sources)Start: 69-65-9310tnrj 1 puff(s) by inhalation every four to six hours as neededAlbuterol Sulfate 90 mcg/actuation HFA aerosol inhaler Active 2 PUFF INHALATION EVERY 4-6 HOURS as needed for bronchospasm 6.7 October 14, 2024 12:00amamoxicillin 875 mg / clavulanate 125 mg oral tablet (3 sources)Penicillin-class Antibacterialtake 1 tablet by mouth every twelve hoursAmoxicillin-Pot Clavulanate 875-125 MG 1 tablet Orally every 12 hrs Active aspirin 81 mg oral tablet (3 sources)Platelet Aggregation Inhibitor, Nonsteroidal Anti-inflammatory Drug Start: 40-25-9434syht 1 tablet by mouth once dailyAtogepant (2 sources)Start: 26-23-0847yugl 1 tablet by mouth once dailyStart: 03-11-2025 take 1 tablet by mouth once dailyAtogepant (Qulipta) 30 mg tablet Active 30 MG PO Daily March 11, 2025 12:00am Complies with drug therapyazithromycin 250 mg oral tablet (3 sources)Macrolide AntimicrobialStart: 24-76-8898Ztpxppsljxfa 250 MG as directed Orally 2 tabs po today, then 1 tab daily x 4 more days for 5 Jul, ActivebusPIRone hydrochloride 5 mg oral tablet (9 sources)Start: 01-27-2025 End: 33-10-2687azwy 1 tablet by mouth twice daily as needed for anxietydocusate sodium 100 mg oral capsule (2 sources)Start: 59-18-7783fidu 1 capsule by mouth twice daily as needed for constipationColace 100 mg Cap 100 mg = 1 cap(s), Oral, BID, PRN for constipation, # 20 cap(s), Refills(s) 0, [facility], cm, 08/09/22 5:10:00 EST, Height/Length Dosing, 91.2, kg, 08/09/22 5:10:00 EST, Weight Dosing Start Date: 08/18/22 Status: Orderedescitalopram 20 mg oral tablet (20 sources)Serotonin Reuptake InhibitorStart: 08-19-2024 End: 02-32-1547yjqg 1 tablet by mouth once dailyStart: 07-04-2024 End: 39-43-3098Dggdtjghddlx Oxalate 20 mg tablet Discontinued 20 MG PO .COMPLEX July 04, 2024 10:39am August 19, 2024 4:52pm 20mg orallyStart: 10-26-2023 End: 22-39-6344idcm 1 tablet by mouth once dailyEscitalopram Oxalate 20 mg tablet Discontinued 0 .ROUTE .COMPLEX June 04, 2024 9:29am July 04, 2024 10:40am TAKE 1 TABLET BY MOUTH EVERY DAYStart: 08-14-2023 End: 13-21-9986nzes 1 tablet by mouth once dailyEscitalopram Oxalate 20 mg tablet Discontinued 20 MG PO Daily August 14, 2023 4:16pm October 26, 2023 10:35am FreeTextSi tablet Orally Once a day; Note: Source Status: Refill; Provider: Cris EStart: 08-48-5917blsc 1 tablet by mouth every twenty-four hoursEscitalopram Oxalate 10 MG 1 tablet Orally Once a day for 30 day(s) Jun, Activetake 1 tablet by mouth every twenty-four hoursEscitalopram Oxalate 20 MG 1 tablet Orally Once a day for 30 days Activeesomeprazole 40 mg delayed release oral capsule (8 sources)Proton Pump InhibitorStart: 76-20-7121cqil 1 capsule by mouth once dailyNexium 40 mg Cap-EC 40 mg = 1 cap(s), Oral, Daily, Refills(s) 0, Gas Start Date: 08/08/22 Status: Orderedtake 1 capsule by mouth every twenty-four hours NexIUM 24HR 20 MG 1 capsule Orally Once a day Activefluconazole 150 mg oral tablet (6 sources)Azole AntifungalStart: 03-16-2025 End: 19-22-1141Eyryg: 78-22-0632gjok 1 tablet by mouth onceFluconazole 150 MG 1 tablet Orally once for 10 days Jul, Activeibuprofen 600 mg oral tablet (3 sources)Nonsteroidal Anti-inflammatory DrugStart: 90-78-7088jrnw 1 tablet by mouth every eight hours as needed for painibuprofen 600 mg Tab 600 mg = 1 tab(s), Oral, q8hr, PRN as needed for pain, with food or milk, # 50tab(s), Refills(s) 0, Pharmacy: [facility], 163, cm, 08/09/22 5:10:00 EST, Height/Length Dosing, 91.2, kg, 08/09/22 5:10:00 EST, Weight Dosing Start Date: 08/18/22 Status: OrderedStart: 34-64-8194hwlm 1 tablet by mouth every six hours as needed for painibuprofen 600 mg Tab 600 mg = 1 tab(s), Oral, q6hr, PRN as needed for pain, Refills(s) 0 Start Date: 08/08/22 Status: Orderednitroglycerin 0.3 mg sublingual tablet (3 sources)Nitrate VasodilatorStart: 57-54-1924qednejzrtai 4 mg disintegrating oral tablet (20 sources)Serotonin-3 Receptor AntagonistStart: 07-04-2024 End: 82-42-9978npzq 1 tablet by mouth every eight hours as needed for nausea and vomitingStart: 10-03-2023 End: 18-43-1170kcft 1 tablet by mouth every eight hours as needed for nausea and vomitingOndansetron Hcl 4 mg tablet Discontinued 4 MG PO Every 8 hours as needed for nausea and vomiting 2 October 03, 2023 12:00am December 13, 2023 1:12pm pantoprazole 40 mg delayed release oral tablet (20 sources)Proton Pump InhibitorStart: 13-76-1780oktw 1 tablet by mouth twice dailyStart: 10-26-2023 End: 44-46-8803hles 1 tablet by mouth once dailyPantoprazole 40 mg tablet,delayed release (DR/EC) Discontinued 0 .ROUTE .COMPLEX November 30, 2023 11:24am December 13, 2023 1:33pm TAKE 1 TABLET BY MOUTH DAILYStart: 09-07-2023 End: 46-73-3199zgop 1 tablet by mouth once dailyPantoprazole 40 mg tablet,delayed release (DR/EC) Discontinued 40 MG PO Daily September 07, 2023 12:00am October 26, 2023 10:35amtraZODone hydrochloride 150 mg oral tablet (20 sources)Serotonin Reuptake InhibitorStart: 01-27-2025 End: 75-45-5528kjpp 1 tablet by mouth once daily at bedtimeStart: 10-26-2023 End: 81-33-9831lndd 1 tablet by mouth once daily at bedtimeTrazodone 100 mg tablet Discontinued 0 .ROUTE .COMPLEX November 20, 2024 11:45am January 27, 2025 1:49pm TAKE 1 TABLET BY MOUTH ONCE DAILY AT BEDTIMEStart: 08-14-2023 End: 31-49-3202owss 1 tablet by mouth once daily at bedtimeTrazodone 100 mg tablet Discontinued 100 MG PO Daily at bedtime August 14, 2023 4:16pm October 26, 2023 10:35amStart: 31-06-9554vgwf 1 tablet by mouth every twenty-four hours traZODone HCl 50 MG 1 tablet at bedtime as needed Orally Once a day for 30 day(s) Jun, Activetake 1 tablet by mouth every twenty-four hours traZODone HCl 100 MG 1 tablet at bedtime as needed Orally Once a day for 30 days Activeubrogepant 100 mg oral tablet (7 sources)Start: 12-22-2024 End: 95-30-5147pyms 1 tablet by mouth once as needed for headache Completed/Discontinued Medications MedicationDrug Class(es)DatesSig (Normalized)Sig (Original)acetaminophen 325 mg / HYDROcodone bitartrate 5 mg oral tablet (2 sources)Opioid AgonistStart: 83-57-9510Attwq 325 mg-5 mg oral tablet See Instructions, for pain, 40 tab(s), Refill(s) 0, 1-2 tab(s) Oral q4hr, [facility], 163, cm, 08/09/22 5:10:00 EST, Height/Length Dosing, 91.2, kg, 08/09/22 5:10:00 EST, Weight Dosing Start Date: 08/18/22 Status: Coshfoxwou245197 200 actuat albuterol 0.09 mg/actuat metered dose inhaler (14 sources)beta2-Adrenergic AgonistStart: 10-14-2024 End: 62-01-2010clet 1 puff(s) by inhalation every four to six hours as needed Albuterol Sulfate 90 mcg/actuation HFA aerosol inhaler Discontinued 2 PUFF INHALATION EVERY 4-6 HOURS as needed for bronchospasm 6.7 February 09, 2025 2:46pm March 05, 2025 8:53ambenzonatate 200 mg oral capsule (9 sources)Non-narcotic AntitussiveStart: 10-14-2024 End: 31-79-5376Ztqnyeeccwq 200 mg capsule Discontinued 200 MG PO 2-3 TIMES PER DAY as needed for cough October 14, 2024 12:00am November 21, 2024 10:57am cholestyramine resin 4000 mg powder for oral suspension (13 sources)Bile Acid SequestrantStart: 11-06-2023 End: 96-78-7202vbne 1 dose by mouth twice dailyCholestyramine (With Sugar) 4 gram powder Discontinued 4 GM PO Twice daily November 06, 2023 12:00am December 13, 2023 1:11pm administer w/meal; avoid other meds within 1hr before or 4-6hr after doseStart: 11-06-2023 End: 47-81-5715naar 1 dose by mouth twice dailyCholestyramine (With Sugar) 4 gram powder Discontinued 4 GM PO Twice daily 378 November 06, 2023 12:00am December 13, 2023 1:11pm administer w/meal; avoid other meds within 1hr before or 4-6hr after doseStart: 11-06-2023 End: 70-83-5811gpbl 1 dose by mouth twice dailyCholestyramine (With Sugar) Discontinued 4 GM PO Twice daily 378 November 06, 2023 12:00am December 13, 2023 1:11pm administer w/meal; avoid other meds within 1hr before or 4-6hr after dose colestipol hydrochloride 1000 mg oral tablet (12 sources)Bile Acid SequestrantStart: 03-28-2024 End: 27-37-0063Dowmxjenvr 1 gram tablet Discontinued 1 GM PO Twice daily 60 March 28, 2024 12:00am July 04, 2024 10:27amCranberry Fruit (18 sources)Non-Standardized Food Allergenic Extract, Non-Standardized Plant Allergenic ExtractStart: 10-08-2023 End: 83-95-6673obca 1 capsule by mouth once dailyCranberry Fruit 400 mg capsule Discontinued 400 MG PO Daily October 08, 2023 12:00am March 16, 2025 2:58pm administer with a mealStart: 10-86-6670qmnb 1 capsule by mouth once daily Start: 85-97-0654qbfk 1 capsule by mouth once dailyCranberry Fruit 400 mg capsule Active 400 MG PO Daily October 08, 2023 12:00am administer with a meal Complies with drug therapyStart: 18-98-1634wqwl 1 capsule by mouth once daily Cranberry Fruit 400 mg capsule Active 400 MG PO Daily October 08, 2023 12:00am administer with a mealStart: 31-66-2605oliz 400 mg by mouth once dailyCranberry Active 400 MG PO Daily October 08, 2023 12:00am administer with a mealStart: 04-98-3036jyfdhnnqe oral capsule See Instructions, Refill(s) 0, Prophylaxis Start Date: 08/08/22 Status: Ordereddoxycycline hyclate 100 mg oral tablet (9 sources)Tetracycline-class DrugStart: 10-14-2024 End: 83-75-5712gryc 1 tablet by mouth twice dailyDoxycycline Hyclate 100 mg tablet Discontinued 100 MG PO Twice daily October 14, 2024 12:00am November 21, 2024 10:57amfamotidine 40 mg oral tablet (16 sources)Histamine-2 Receptor AntagonistStart: 10-03-2023 End: 59-68-6812gcba 1 tablet by mouth once daily at bedtimeFamotidine 40 mg tablet Discontinued 40 MG PO Daily at bedtime October 03, 2023 12:00am May 30, 2024 11:32amMultivitamin (Daily Multi-Vitamin) tablet (7 sources)Start: 12-19-2024 End: 82-37-3088fnfg 1 tablet by mouth once dailyMultivitamin (Daily Multi- Vitamin) tablet Discontinued 1 TAB PO Daily December 19, 2024 12:00am March 16, 2025 2:59pmStart: 76-02-0103rhir 1 tablet by mouth once dailyStart: 39-90-6012gdxc 1 tablet by mouth once dailyMultivitamin (Daily Multi-Vitamin) tablet Active 1 TAB PO Daily December 19, 2024 12:00am Complies with drug therapy polymyxin b 11196 unt/ml / trimethoprim 1 mg/ml ophthalmic solution (3 sources)Dihydrofolate Reductase Inhibitor Antibacterial, Polymyxin-class AntibacterialStart: 02-18-2025 End: 13-35-2171Jngbooldb B Sulf-Trimethoprim 10,000 unit- 1 mg/mL drops Discontinued 1 DROPS EYE-BOTH Every three hours 10 February 18, 2025 12:00am March 16, 2025 2:59pm while awake; do not exceed 6 doses in 24 hours rifAXIMin 550 mg oral tablet (20 sources)Rifamycin AntibacterialStart: 08-11-2024 End: 46-91-6434orxm 1 tablet by mouth three times dailyRifaximin (Xifaxan) 550 mg tablet Discontinued 550 MG PO Three times daily 42 September 22, 2024 4:17pm November 21, 2024 11:10amSemaglutide (Weight Loss) (11 sources)Start: 01-27-2025 End: 69-97-6945Qzhdeuceftq (Weight Loss) (Wegovy) 0.25 mg/0.5 mL pen injector Discontinued 0.25 MG SUBCUT every week 2 January 27, 2025 1:53pm March 16, 2025 2:59pm administer weeks 1 through 4 of therapyStart: 37-24-4926Anxzqxrtmqo (Weight Loss) (Wegovy) 0.25 mg/0.5 mL pen injector Active 0.25 MG SUBCUT every week 2 January 27, 2025 1:53pm administer weeks 1 through 4 of therapy Complies with drug therapyStart: 12-23-2024 End: 02-79-3303Ihricngyovs (Weight Loss) (Wegovy) 0.25 mg/0.5 mL pen injector Discontinued 0.25 MG SUBCUT every week 2 December 23, 2024 12:00am January 27, 2025 1:53pm administer weeks 1 through 4 of therapyStart: 63-68-9319YZBUpllpylq 50 mg oral tablet (20 sources)Serotonin-1b and Serotonin-1d Receptor AgonistStart: 09-05-2023 End: 56-15-1863swzh 1 tablet by mouth once daily as neededSumatriptan Succinate 50 mg tablet Discontinued MG PO September 05, 2023 12:00am October 03, 2023 10:4 2am FreeTextSig: TAKE 1 TABLET BY MOUTH EVERY DAY NEEDED Oral; Note: Source Status: Not-TakingundefinedPRN; Refills: 0; Qty: 9 Each; Provider: JERAMIE MONTIEL take 1 tablet by mouth once daily as neededSUMAtriptan Succinate 50 MG TAKE 1 TABLET BY MOUTH EVERY DAY NEEDED Oral for 9 Days Not-Taking/PRNTirzepatide (Weight Loss) (8 sources)Start: 11-21-2024 End: 41-92-0433Svumqrzswjx (Weight Loss) (Zepbound) 2.5 mg/0.5 mL pen injector Discontinued 2.5 MG SUBCUT every week 2 November 21, 2024 12:00am December 23, 2024 1:35pm for 4 weeksStart: 60-78-1244Kphdykqptyq (Weight Loss) (Zepbound) 2.5 mg/0.5 mL pen injector Active 2.5 MG SUBCUT every week November 21, 2024 12:00am for 4 weeks Complies with drug therapyStart: 41-87-7881Kxjzedujltl (Weight Loss) (Zepbound) 2.5 mg/0.5 mL pen injector Active 2.5 MG SUBCUT every week November 21, 2024 12:00am for 4 weeks Problems Active Problems Problem ClassificationProblemDateDocumented DateEpisodic/ChronicEndometriosis (3 sources)Endometriosis (clinical)81-52-1959LpnrkrfQtqmrclvle disorders (20 sources)Gastroesophageal reflux disease; Translations: [Gastro-esophageal reflux disease without esophagitis]46-92-8736AqwlvkgVkgosgaajigsj symptoms and ill-defined conditions (3 sources)Dysuria; Translations: [Dysuria]49-11-2444IbwepdcwVtosgsbl; including migraine (18 sources)Migraine; Translations: [Migraine, unspecified, not intractable, without status migrainosus]Onset: 11-15-2021 Resolved: 42-62-7626SydsomdZhjeboko; including migraine (15 sources)Headache; Translations: [Headache]Onset: EpisodicHeadache; including migraine (5 sources)Headache; including migraineInflammation; infection of eye (except that caused by tuberculosis or sexually transmitteddisease) (6 sources)Bilateral conjunctivitis; Translations: [Other mucopurulent conjunctivitis, bilateral]36-92-8899FszibdqtRhjz disorders (12 sources)Major depression, single episode; Translations: [Major depressive disorder, single episode, unspecified]ChronicMycoses (2 sources)Candidiasis of vagina; Translations: [Candidiasis of vagina] 48-07-3007VrsynubhEeokvolahbmt breast conditions (4 sources)Mastodynia; Translations: [Pain of left breast]88-98-9162Wjzwvqlh Nonspecific chest pain (2 sources)Chest pain; Translations: [Chest pain, unspecified]90-59-7679Jepdmrxp Other circulatory disease (2 sources)Elevated blood-pressure reading without diagnosis of hypertension; Translations: [Elevated blood-pressure reading, without diagnosis of hypertension]EpisodicOther connective tissue disease (1 source)Pain in forearm; Translations: [Pain in left forearm]EpisodicOther connective tissue disease (2 sources)Lateral epicondylitis; Translations: [Lateral epicondylitis, left elbow]EpisodicOther ear and sense organ disorders (3 sources)Otalgia, bilateral; Translations: [OTALGIA BILATERAL]Onset: 70-09-5796GqxlvpcrHkilq ear and sense organ disorders (18 sources)Lump in ear canal; Translations: [Other specified disorders of ear, unspecified ear]EpisodicOther gastrointestinal disorders (12 sources)Irritable bowel syndrome with diarrhea; Translations: [Irritable bowel syndrome with diarrhea]70-23-8278GhuqlviHssqp gastrointestinal disorders (5 sources)Irritable bowel syndrome with diarrhea; Translations: [Irritable bowel syndrome]Onset: 156773-98-2515RcbbyubGyuzf gastrointestinal disorders (16 sources)Chronic constipation; Translations: [Other constipation]10-03-2023 EpisodicOther gastrointestinal disorders (3 sources)Other constipation; Translations: [Constipation, unspecified] 29-26-6315IxrwznorNgjtx gastrointestinal disorders (14 sources)Diarrhea; Translations: [Diarrhea, unspecified]96-07-1330Ramcbkux Other nervous system disorders (16 sources)Benign intracranial hypertension; Translations: [Benign intracranial hypertension]Onset: 145747-83-5356EupzozfFlhec nervous system disorders (6 sources)Benign intracranial hypertension; Translations: [BENIGN INTRACRANIAL HYPERTENSION]Onset: 10-31-2021 Resolved: 71-60-8718JdfjeebOmvbn nervous system disorders (1 source)Presence of cerebrospinal fluid drainage deviceOnset: 11-15-2021 Resolved: 90-71-2123McdpawyXdrqn nervous system disorders (13 sources)Device in situ; 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]96-97-7605JidfkmnFameb nervous system disorders (6 sources)Ventriculoperitoneal shunt in situ; 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]04-52-4905UyuofqiWcolu nervous system disorders (1 source)Postoperative pain ; Translations: [Other acute postprocedural pain] EpisodicOther non-traumatic joint disorders (1 source)Pain of left elbow joint; Translations: [Pain in left elbow]Episodic Other non-traumatic joint disorders (1 source)Pain of left wrist; Translations: [Pain in left wrist]EpisodicOther non-traumatic joint disorders (1 source)Joint pain in left hand; Translations: [Pain in joints of left hand] EpisodicOther nutritional; endocrine; and metabolic disorders (4 sources)Body mass index 30+ - obesity; Translations: [Body mass index 30.0- 30.9, adult]Onset: 18-06-7377XafpkklWvlyq nutritional; endocrine; and metabolic disorders (4 sources)Obese class I; Translations: [Body mass index (BMI) 34.0-34.9, adult] ChronicOther nutritional; endocrine; and metabolic disorders (20 sources)Obesity; Translations: [Class 2 obesity with body mass index (BMI) of 36.0 to 36.9 in adult]27-52-5302XyfuupsWfjzd screening for suspected conditions (not mental disorders or infectious disease) (20 sources)Patient encounter status; Translations: [Encounter for screening mammogram for malignant neoplasm of breast]41-46-5735GnuxpntdRkbhp upper respiratory infections (12 sources)Acute maxillary sinusitis; Translations: [Acute recurrent maxillary sinusitis]Onset: 641536-04-3914RoziipqyMacwll media and related conditions (12 sources)Otitis media, unspecified, right ear; Translations: [Other acute nonsuppurative otitis media, bilateral]Onset: 28-18-8572RmpwusegAujllngc codes; unclassified (5 sources)H/O: risk factor; Translations: [Transfusion history]EpisodicResidual codes; unclassified (1 source)Past history of procedure; Translations: [Other specified postprocedural states]EpisodicResidual codes; unclassified (2 sources)Family history of breast cancer; Translations: [Family history of malignant neoplasm of breast]EpisodicResidual codes; unclassified (10 sources)Insomnia; Translations: [Insomnia, unspecified]Onset: 11-19-2014 04-44-1477OonzmulxBxruqshi codes; unclassified (2 sources)Family history of diabetes mellitus; Translations: [Family history of diabetes mellitus]EpisodicResidual codes; unclassified (2 sources)Insomnia, unspecifiedEpisodicResidual codes; unclassified (1 source)Pain, unspecified; Translations: [Pain, unspecified]Onset: 05-24-2024 EpisodicSubstance-related disorders (5 sources)Smoker; Translations: [Nicotine dependence, unspecified, uncomplicated]91-81-8469CdrzwjpAvxdyko on above:Added secondary to documentation in Social History.Syncope (13 sources)Syncope and collapse; Translations: [Syncope and collapse]Onset: 424824-92-2006EqluttesLblsfhrziwuc (3 sources)History of clinical finding in eieeseu92-20-6722Msozrxydkwuc (6 sources)H93.8X9 - Other specified disorders of ear, unspecified ear Past or Other Problems Problem ClassificationProblemDateDocumented DateEpisodic/ChronicAbdominal pain (20 sources)Abdominal pain; Translations: [Abdominal pain, other specified site] Onset: 307755-60-2762SrnrzcrcLwzxsjtr reactions (2 sources)Contact dermatitis; Translations: [Contact dermatitis and other eczema, due to unspecified cause]Onset: 66-25-1503HltynootFvrmsc and vomiting (2 sources)Nausea; Translations: [Nausea]Onset: 31-66-9710MbryssfgRlygy circulatory disease (1 source)Elevated blood-pressure reading, without diagnosis of hypertension; Translations: [ELEVATED BP READING W/O DX HTN]Onset: 66-15-0430SsktrifyLudzv connective tissue disease (4 sources)Lateral epicondylitis, left elbow; Translations: [LATERAL EPICONDYLITIS LEFT ELBOW]Onset: 60-11-3834QjhxktpoDrlcd connective tissue disease (1 source)Lateral epicondylitis of left humerusOnset: EpisodicOther gastrointestinal disorders (3 sources)Diarrhea, unspecified; Translations: [Diarrhea]Onset: 10-03-2024 10-95-1099SeotequdAzwrx injuries and conditions due to external causes (2 sources)Nonvenomous insect bite of multiple sites; Translations: [Other, multiple, and unspecified sites, insect bite, nonvenomous, without mention of infection]Onset: 51-67-0798XkyggdviLniof injuries and conditions due to external causes (2 sources)Motion sickness; Translations: [Motion sickness, initial encounter] Onset: 93-39-5451GlbzjupyYxfwp non-traumatic joint disorders (2 sources)Hand joint pain; Translations: [Pain in joint, hand]Onset: 01-27-2014 EpisodicResidual codes; unclassified (2 sources)Tobacco user; Translations: [Nondependent tobacco use disorder]Onset: 01-52-0459XzsdemjuZevf and subcutaneous tissue infections (2 sources)Pyoderma; Translations: [Pyoderma]Onset: 51-84-1901[place] Spondylosis; intervertebral disc disorders; other back problems (2 sources)Sciatica; Translations: [Lumbago with sciatica, right side]Onset: 46-20-1785Dcsncoyh Results Test NameValueInterpretationReference RangeFacilityUrine Cultureon 03-30-2025 Bacteria identified Cx Nom (U)ORGANISM: Klebsiella pneumoniae (O:KLEPNE) [place] Count >100,000 Aerobic DEMIAN Charge (NMIC56) SUSCEPTIBILITY ORGANISM: O:KLEPNE ANTIBIOTIC INTERPRETATION DEMIAN Amikacin S <16 Amoxacillin/K Clavulanate S <8 Ampicillin/Sulbactam S 88/4 Aztreonam S <4 Cefazolin S <2 Cefepime S <2 Ceftazidime S <1 Ceftazidime/Avibactam S <4 Ceftolozane/Tazobactam S <2 Ceftriaxone S <1 Cefuroxime S <4 Ciprofloxacin S <0.25 Ertapenem S <0.5 Gentamicin S <2 Levofloxacin S <0.5 Meropenem S <1 Meropenem/Vaborbactam S <2 Nitrofurantoin R >64 Piperacillin/Tazobactam S <8 Tetracycline S <4 Tigecycline S <2 Tobramycin S <2 Trimethoprim/Sulfamethoxazole S <0.5 S = SUSCEPTIBLE I = INTERMEDIATE R = RESISTANT BLANK = DATA NOT AVAILABLE, OR DRUG NOT ADVISABLE OR TESTED R* = RESISTANCE DUE TO EXTENDED SPECTRUM BETA-LACTAMASES ESBL = EXTENDED SPECTRUM BETA-LACTAMASE TFG = THYMIDINE-DEPENDENT STRAIN MERCEDES = BETA-LACTAMASE POSITIVE IB = INDUCIBLE BETA-LACTAMASE. APPEARS IN PLACE OF 'S' WITH SPECIES KNOWN TO POSSESS INDUCIBLE BETA-LACTAMASES. POTENTIALLY THEY MAY BECOME RESISTANT TO ALL B-LACTAM DRUGS. PERFORMED BY: [facility] [address] [place] [address] PATHOLOGIST AUDIO VISUAL MANAGER FERDINAND NIELSEN M.D.[facility] Physician GroupComment on above: Performed By: #### CUU #### [facility] [address] [id number] USAOffice Visiton 55-25-3948Skbtel-up [id number] Poornima Barker 1975 F Date Provider Department Center 03/19/2025 [id number] HERNANDEZ CARLY Curtis Family History Problem Relation Age of Onset Coronary artery disease Mother Stroke Father Family Status - Relation Status Age at Mother Alive Father Level of Service:75143 [place] OFFICE/OUTPATIENT ESTABLISHED MOD MDM 30 MIN Reason for Visit and Comments: Follow-up [676801] - Patient is here today for a follow up [facility] admission and stress test. Patient was in [facility] er on Sunday the for chest pain. Patient will be leaving to go on vacation Syncope [506] Fatigue [46] Shortness of Breath [382701] - LEE Dizziness [760325] - Lightheaded with position changes Palpitations [] - And racing heartNormalUniversity of Carl R. Darnall Army Medical CenterOrders Onlyon 95-29-6309Aceskk [id number] Poornima Barker 1975 Provider Department Center 03/16/2025 [id number], HISTORICAL CARLY Mondragon Hos Family History Problem Relation Age of Onset Coronary artery disease Mother Stroke Father Family Status - Relation Status Age at Mother FatherNormalUniversity of Carl R. Darnall Army Medical CenterErythrocyte distribution width Auto (RBC) [Ratio]Ordered By: Nigel Samano on 82-35-5940Vmknkzhikkj distribution width (RBC) [Ratio]13.5 %11.0-15.0[facility] HospitalGlomerular filtration rate (GFR) estimation in non- AmericanOrdered By: Nigel Samano on 47-09-5627VYE/1.73 sq M.predicted among non-blacks MDRD (S/P/Bld) [Vol rate/Area]mL/min/{1.73_m2}>=60 mL/min/1.73m 2FMercy Memorial Hospital Hematocrit Auto (Bld) [Volume fraction]Ordered By: Nigel Samano on 03-15-2025 Hematocrit (Bld) [Volume fraction]37.2 %36.0-48.0[facility] HospitalHemoglobin [Mass/volume] in BloodOrdered By: Nigel Samano on 03-15-2025 Hemoglobin (Bld) [Mass/Vol]12.4 g/dL12.0-16.0[facility] - Chemistry and Chemistry - challengeOrdered By: Nigel Samano on 78-05-2933Efbjchz [Mass/Vol]8.9 mg/dL8.5-10.1FMercy Memorial Hospital Chloride [Moles/Vol]109 mmol/BRymi34-529XieaouvtsToledo HospitalCO2 [Moles/Vol]26.0 mmol/L21.0-32.0[facility] HospitalCreatinine [Mass/Vol]0.92 mg/dL0.55-1.02T[facility] HospitalGFR/1.73 sq M.predicted MDRD (S/P/Bld) [Vol rate/Area]mL/min/{1.73_m2}>=60 mL/min/1.73m 2 [facility] HospitalGlucose [Mass/Vol]104 mg/sV23-818CgoprynlpToledo HospitalPotassium [Moles/Vol]3.9 mmol/L3.5-5.1FEast Ohio Regional Hospitalodium [Moles/Vol]143 mmol/F704-532YmgkipoxiToledo HospitalUrea nitrogen [Mass/Vol]13.0 mg/dL7.0-18.0[facility] HospitalUrea nitrogen/Creatinine [Mass ratio]14.1 mg/mgToledo HospitalLeukocytes [#/volume] corrected for nucleated erythrocytes in Blood by Automated counOrdered By: Nigel Samano on 90-60-1320QQE corrected for nucl RBC Auto (Bld) [#/Vol]12.8 10 3/uLHigh4.0-11.0[facility] HospitalMCH Auto (RBC) [Entitic mass]Ordered By: Nigel Samano on 21-32-7521NXW (RBC) [Entitic mass]29.3 pg26.7-34.0T[facility] HospitalMCHC Auto (RBC) [Mass/Vol]Ordered By: Nigel Samano on 65-00-7854XOUC (RBC) [Mass/Vol]33.3 g/dL 29.9-35.2FMercy Memorial HospitalMCV Auto (RBC) [Entitic vol]Ordered By: Nigel Samano on 13-86-3266RPG (RBC) [Entitic vol]87.9 fL81.0-99.0[facility] HospitalNo Panel InformationOrdered By: Nigel Samano on 03-15-2025 Troponin I High Sensitivity<4.0 pg/mLLow4.0-51.3FMercy Memorial HospitalComment on above:CUT-OFF POINTS HAVE BEEN ESTABLISHED BASED ON THE FOURTHUNIVERSAL DEFINITION OF MYOCARDIAL INFARCTION. THE UPPERREFERENCE LIMIT (URL) OF TROPONIN, DEFINED THE 99THPERCENTILE OF cTnI DISTRIBUTION IN A REFERENCE POPULATION,HAS BEEN CONFIRMED THE DECISION THRESHOLD FOR MIDIAGNOSIS.99TH PERCENTILE = 51.4 PG/MLNOTE: HIGH-SENSITIVITY TROPONIN ASSAY IS NOT INTENDED TO BEUSED IN ISOLATION BUT SHOULD BE INTERPRETED IN CONJUNCTIONWITH OTHER DIAGNOSTIC AND CLINICAL INFORMATION.Platelet mean volume Auto (Bld) [Entitic vol]Ordered By: Nigel Samano on 38-14-5661Krsjxckd mean volume (Bld) [Entitic vol]9.3 fLLow9.5-13.5FMercy Memorial HospitalPlatelets Auto (Bld) [#/Vol]Ordered By: Nigel Samano on 38-01-8140Qfrwnkasx (Bld) [#/Vol]343 10 3/kQ995-117NnerfatdcToledo HospitalRBC Auto (Bld) [#/Vol]Ordered By: Nigel Samano on 26-18-8202INR (Bld) [#/Vol]4.23 10 6/uL4.20-5.40[facility] Orthopedic Centererum or plasma anion gap determinationOrdered By: Nigel Samano on 04-47-1928Ogbyh gap [Moles/Vol]11.9 mmol/LFMercy Memorial HospitalCholesterol in LDL Calc [Mass/Vol]Ordered By: Stanley Levi on 03-09-2025 Cholesterol in LDL [Mass/Vol]94.0 mg/dLToledo HospitalComment on above:<100 mg/dl MCBXQHR103-373 mg/dl NEAR OR ABOVE MJLEFNA313-631 mg/dl BORDERLINE KSUR232-241 mg/dl HIGH>190 mg/dl VERY HIGHCholesterol in VLDL Calc [Mass/Vol]Ordered By: Stanley Levi on 88-06-9885Onemovgqpdv in VLDL [Mass/Vol] 42.0 mg/dLToledo HospitalErythrocyte distribution width Auto (RBC) [Ratio]Ordered By: Stanley Levi on 88-04-9240Bhvfrrsamul distribution width (RBC) [Ratio]13.6 %11.0-15.0T[facility] HospitalGlobulin Calc (S) [Mass/Vol]Ordered By: Stanley Levi on 83-47-6423Hoaehsjc (S) [Mass/Vol]3.2 g/dLToledo HospitalGlomerular filtration rate (GFR) estimation in non- AmericanOrdered By: Stanley Levi on 03-09-2025 GFR/1.73 sq M.predicted among non-blacks MDRD (S/P/Bld) [Vol rate/Area] mL/min/{1.73_m2}>=60 mL/min/1.73m 2FMercy Memorial HospitalHematocrit Auto (Bld) [Volume fraction]Ordered By: Stanley Levi on 99-25-8571Mjfkbakhwm (Bld) [Volume fraction]33.7 %Low36.0-48.0[facility] Hemoglobin [Mass/volume] in BloodOrdered By: Stanley Levi on 03-09-2025 Hemoglobin (Bld) [Mass/Vol]11.2 g/dLLow12.0-16.0[facility] HospitalLaboratory - Chemistry and Chemistry - challengeOrdered By: Stanley Levi on 14-14-6191Unshbdi [Mass/Vol]2.8 g/dLLow3.4-5.0T[facility] HospitalALP [Catalytic activity/Vol]64 U/J96-022PsyqyxzbzToledo Hospital ALT [Catalytic activity/Vol]14 U/C92-86QglqftethToledo HospitalAST [Catalytic activity/Vol]12 U/GUbv52-42XdnvcqkejToledo HospitalBilirubin [Mass/Vol]0.2 mg/dL0.2-1.0[facility] HospitalCalcium [Mass/Vol]8.3 mg/dLLow8.5-10.1FMercy Memorial HospitalChloride [Moles/Vol]108 mmol/L Ktmm30-414KauglnvwyToledo HospitalCholesterol [Mass/Vol]178 mg/dL<=200 [facility] HospitalCholesterol in HDL [Mass/Vol]42 mg/dL40-60 [facility] HospitalComment on above:> or =60 mg/dl - LOW CARDIOVASCULAR RISK<40 mg/dl - HIGH CARDIOVASCULAR RISKCO2 [Moles/Vol]26.8 mmol/L21.0-32.0[facility] HospitalCreatinine [Mass/Vol]0.89 mg/dL 0.55-1.02T[facility] HospitalGFR/1.73 sq M.predicted MDRD (S/P/Bld) [Vol rate/Area]mL/min/{1.73_m2}>=60 mL/min/1.73m 2FMercy Memorial HospitalGlucose [Mass/Vol]95 mg/lE67-362JrxduznbjToledo HospitalPotassium [Moles/Vol]3.8 mmol/L3.5-5.1FMercy Memorial HospitalProtein [Mass/Vol] 6.0 g/dLLow6.4-8.2FEast Ohio Regional Hospitalodium [Moles/Vol]144 mmol/L 136-145T[facility] HospitalTriglyceride [Mass/Vol]210 mg/dLHigh <=150T[facility] HospitalUrea nitrogen [Mass/Vol]16.0 mg/dL7.0-18.0 [facility] HospitalUrea nitrogen/Creatinine [Mass ratio]18.0 mg/mg [facility] HospitalLeukocytes [#/volume] corrected for nucleated erythrocytes in Blood by Automated counOrdered By: Stanley Levi on 03-09-2025 WBC corrected for nucl RBC Auto (Bld) [#/Vol]9.8 10 3/uL4.0-11.0[facility] HospitalMCH Auto (RBC) [Entitic mass]Ordered By: Stanley Emmanuel on 35-04-9769UNM (RBC) [Entitic mass]29.2 pg26.7-34.0[facility] Auto (RBC) [Mass/Vol]Ordered By: Stanley Emmanuel on 78-51-5551NZAX (RBC) [Mass/Vol]33.2 g/dL29.9-35.2FMercy Memorial HospitalMCV Auto (RBC) [Entitic vol]Ordered By: Stanley Emmanuel on 12-84-9195EKI (RBC) [Entitic vol]87.8 fL81.0-99.0[facility] HospitalNo Panel InformationOrdered By: Stanley Emmanuel on 67-43-9907Crnfhhn Influenza Type A AntigenNegativeToledo HospitalComment on above:Negative for Flu A protein antigen. Infection due to Flu Acannot be ruled out. Flu A antigen in thesample may bebelow the detection limit of the test.Bedside Influenza Type B AntigenNegative [facility] HospitalComment on above:Negative for Flu B protein antigen. Infection due to Flu Bcannot be ruled out. Flu B antigen in thesample may bebelow the detection limit of the test.C-Reactive Protein, Quantitative <0.50 mg/dL<=0.50T[facility]edo HospitalTroponin I High Sensitivity <4.0 pg/mLLow4.0-51.3FMercy Memorial HospitalComment on above:CUT-OFF POINTS HAVE BEEN ESTABLISHED BASED ON THE FOURTHUNIVERSAL DEFINITION OF MYOCARDIAL INFARCTION. THE UPPERREFERENCE LIMIT (URL) OF TROPONIN, DEFINED THE 99THPERCENTILE OF cTnI DISTRIBUTION IN A REFERENCE POPULATION,HAS BEEN CONFIRMED THE DECISION THRESHOLD FOR MIDIAGNOSIS.99TH PERCENTILE = 51.4 PG/MLNOTE: HIGH-SENSITIVITY TROPONIN ASSAY IS NOT INTENDED TO BEUSED IN ISOLATION BUT SHOULD BE INTERPRETED IN CONJUNCTIONWITH OTHER DIAGNOSTIC AND CLINICAL INFORMATION.Platelet mean volume Auto (Bld) [Entitic vol]Ordered By: Stanley Penningtonssm [facility] on 34-84-8845Gprgvwam mean volume (Bld) [Entitic vol]9.3 fLLow 9.5-13.5FMercy Memorial HospitalPlatelets Auto (Bld) [#/Vol]Ordered By: Stanley Levi on 02-20-9977Kwlyorqfb (Bld) [#/Vol]281 10 3/lV460-046XpjhanfieToledo HospitalRBC Auto (Bld) [#/Vol]Ordered By: Stanley Levi on 15-89-2878MAA (Bld) [#/Vol]3.84 10 6/uLLow4.20-5.40[facility]opedic Centererum or plasma albumin/globulin mass ratioOrdered By: Stanley Levi on 88-16-3438Rsasoyx/Globulin [Mass ratio]0.9 {ratio}[facility] Centererum or plasma anion gap determinationOrdered By: Stanley Levi on 63-46-6797Gelvr gap [Moles/Vol]13.0 mmol/LFEast Ohio Regional Hospitalerum or plasma total cholesterol/high density lipoprotein (HDL) cholesterol mass rat Ordered By: Stanley Levi on 75-93-0280Pacjcyjrcsq.total/Cholesterol in HDL [Mass ratio]4.2 {ratio}[facility] HospitalComment on above:3.3 - 4.4 LOW RISK4.4 - 7.1 AVERAGE RISK7.1 - 11.0 MODERATE RISK>11.0 HIGH RISK Basophils Auto (Bld) [#/Vol]Ordered By: Germaine Núñez on 75-45-6303Xngkdpljz (Bld) [#/Vol]0.1 10 3/uL0.0-0.1FMercy Memorial HospitalBasophils/100 WBC Auto (Bld)Ordered By: Germaine Núñez on 41-95-1657Lzbhlqcvd/100 WBC (Bld)0.7 % 0.2-2.0[facility] HospitalEosinophils/100 WBC Auto (Bld)Ordered By: Germaine Núñez on 16-62-0278Gsrhlklnadn/100 WBC (Bld)2.2 %0.9-7.0[facility] HospitalErythrocyte distribution width Auto (RBC) [Ratio]Ordered By: Germaine Núñez on 13-09-6861Idbogzidytx distribution width (RBC) [Ratio]13.3 % 11.0-15.0[facility] HospitalFibrin D-dimer [Presence] in Platelet poor plasma by Latex agglutinationOrdered By: Germaine Núñez on 72-17-0072Pmilxx D-dimer LA Ql (PPP)0.63 mg/L FEUCritically high<=0.59T[facility] HospitalComment on above:RESULTS CALLED TO ALLI BAUER RN @BY Jennifer Tolliver at [phone] [...] post-surgery, diabetes, thrombolyticor anticoagulant therapy, stress, and generalizedhospitalization.Glomerular filtration rate (GFR) estimation in non- AmericanOrdered By: Germaine Núñez on 07-00-7339BZZ/1.73 sq M.predicted among non-blacks MDRD (S/P/Bld) [Vol rate/Area]50 mL/min/{1.73_m2}Low>=60 mL/min/1.73m 2FMercy Memorial HospitalHematocrit Auto (Bld) [Volume fraction]Ordered By: Germaine Núñez on 94-35-5379Uoepsgabzq (Bld) [Volume fraction]38.3 %36.0-48.0[facility] HospitalHemoglobin [Mass/volume] in BloodOrdered By: Germaine Núñez on 52-39-0923Uugeimyqxy (Bld) [Mass/Vol]12.8 g/dL12.0-16.0[facility] HospitalLaboratory - Chemistry and Chemistry - challengeOrdered By: Germaine Núñez on 68-46-3349Iifsrpw [Mass/Vol]8.8 mg/dL8.5-10.1FMercy Memorial HospitalChloride [Moles/Vol]109 mmol/HHcyz92-197YdplvzysvToledo HospitalCO2 [Moles/Vol] 21.0 mmol/L21.0-32.0[facility] HospitalCreatinine [Mass/Vol]1.15 mg/dLHigh0.55-1.02[facility] HospitalGFR/1.73 sq M.predicted MDRD (S/P/Bld) [Vol rate/Area]mL/min/{1.73_m2}>=60 mL/min/1.73m 2FMercy Memorial HospitalGlucose [Mass/Vol]129 mg/tFWbay37-715SumhzagstToledo HospitalNatriuretic peptide B (Bld) [Mass/Vol]63.0 pg/mL<=900.0[facility] HospitalPotassium [Moles/Vol]3.7 mmol/L3.5-5.1FEast Ohio Regional Hospitalodium [Moles/Vol]145 mmol/J269-150TiafcxzrwToledo HospitalUrea nitrogen [Mass/Vol]16.0 mg/dL7.0-18.0[facility] HospitalUrea nitrogen/Creatinine [Mass ratio]13.9 mg/mgToledo Hospital Laboratory - Hematology and Cell countsOrdered By: Germaine Núñez on 03-08-2025 Immature granulocytes/100 WBC (Bld)0.5 %0.0-0.5FMercy Memorial Hospital Leukocytes [#/volume] corrected for nucleated erythrocytes in Blood by Automated counOrdered By: Germaine Núñez on 52-86-7890PNZ corrected for nucl RBC Auto (Bld) [#/Vol]13.0 10 3/uLHigh4.0-11.0[facility] HospitalLymphocytes Auto (Bld) [#/Vol]Ordered By: Germaine Núñez on 32-88-7848Kzmdegslrfd (Bld) [#/Vol]2.8 10 3/uL1.2-3.8[facility] HospitalLymphocytes/100 WBC Auto (Bld)Ordered By: Germaine Núñez on 06-30-2932Ewqrqqrnbed/100 WBC (Bld)21.7 % 20.5-60.0[facility] Auto (RBC) [Entitic mass]Ordered By: Germaine Núñez on 43-02-4885VGD (RBC) [Entitic mass]29.2 pg26.7-34.0[facility] Auto (RBC) [Mass/Vol]Ordered By: Germaine Núñez on 29-64-3472ZMUN (RBC) [Mass/Vol]33.4 g/dL29.9-35.2FMercy Memorial HospitalMCV Auto (RBC) [Entitic vol]Ordered By: Germaine Núñez on 06-69-2972YWN (RBC) [Entitic vol]87.4 fL81.0-99.0[facility] HospitalMonocytes Auto (Bld) [#/Vol]Ordered By: Germaine Núñez on 90-10-7737Vcszbnemp (Bld) [#/Vol] 0.8 10 3/uL0.3-0.8[facility] HospitalMonocytes/100 WBC Auto (Bld) Ordered By: Germaine Núñez on 57-91-9307Jntlngjbu/100 WBC (Bld)6.0 %1.7-12.0 [facility] HospitalNeutrophils Auto (Bld) [#/Vol]Ordered By: Germaine Núñez on 27-72-0692Nwdmvdiprin (Bld) [#/Vol]9.0 10 3/uLHigh1.4-6.5FMercy Memorial HospitalNeutrophils/100 WBC Auto (Bld)Ordered By: Germaine Núñez on 03-31-7915Lurdzcoyaxb/100 WBC (Bld)68.9 %43.0-75.0[facility] HospitalNo Panel InformationOrdered By: Germaine Núñez on 20-10-7882Geoxaxeslmk # (Auto)0.3 10 3/uL0.0-0.7FMercy Memorial HospitalImmature Granulocyte # (Auto)0.06 10 3/uLHigh0.00-0.03T[facility] HospitalTroponin I High Sensitivity<4.0 pg/mLLow4.0-51.3FMercy Memorial HospitalComment on above:CUT-OFF POINTS HAVE BEEN ESTABLISHED BASED ON THE FOURTHUNIVERSAL DEFINITION OF MYOCARDIAL INFARCTION. THE UPPERREFERENCE LIMIT (URL) OF TROPONIN, DEFINED THE 99THPERCENTILE OF cTnI DISTRIBUTION IN A REFERENCE POPULATION,HAS BEEN CONFIRMED THE DECISION THRESHOLD FOR MIDIAGNOSIS.99TH PERCENTILE = 51.4 PG/MLNOTE: HIGH-SENSITIVITY TROPONIN ASSAY IS NOT INTENDED TO BEUSED IN ISOLATION BUT SHOULD BE INTERPRETED IN CONJUNCTIONWITH OTHER DIAGNOSTIC AND CLINICAL INFORMATION.Platelet mean volume Auto (Bld) [Entitic vol]Ordered By: Germaine Núñez on 48-53-8416Nzsoammz mean volume (Bld) [Entitic vol]9.5 fL9.5-13.5FMercy Memorial HospitalPlatelets Auto (Bld) [#/Vol] Ordered By: Germaine Núñez on 73-72-1505Gobvxgxuf (Bld) [#/Vol]353 10 3/xC966-368 [facility] HospitalRBC Auto (Bld) [#/Vol]Ordered By: Germaine Núñez on 32-90-8540KUS (Bld) [#/Vol]4.38 10 6/uL4.20-5.40[facility]opedic Centererum or plasma anion gap determinationOrdered By: Germaine Núñez on 88-02-1515Kfwqh gap [Moles/Vol]18.7 mmol/LFMercy Memorial HospitalCT enterographyon 19-95-1733GY enterographyUNIVERSITY H[facility] [place] [address] CT Scan Report Signed Patient: Poornima Barker MR#: [id number] 745 : 1975 Acct:[id number] Age/Sex: 49 / F ADM Date: 11/07/24 Loc: CT Room: Type: [facility] Attending Dr: Imelda Jiang DO Copies to: [...] is grossly unremarkable. Uterus has been removed.] Peritoneum/Retroperitoneum:The [employer] shunt tubing is seen coiled within the pelvis. Trace free fluid seen within the pelvis. No free air or lymphadenopathy.[ Abd wall/Bones:No acute findings. Osseous structures demonstrate degenerative change. No sacroiliitis.[ CT/CT enterography IMPRESSION: No CT evidence of small bowel abnormality. Hepatic steatosis. Impression dictated by: Oscar Roper Jr., Derrick.OAsmita 11/07/2024 10:07 AM Dictation Location: [place] [address] Transcribed By: [facility] 11/07/24 1007 Dictated By: Oscar Roper Jr, DO 11/07/24 1005 Signed By: 11/07/24 1007[facility] Physician GroupCalprotectin [Mass/mass] in StoolOrdered By: Imelda Jiang on 85-11-5591Luvrwblyvbqy (Stl) [Mass/Mass] Calprotectin [Mass/mass] in Stool0-120T[facility] HospitalComment on above:Concentration Interpretation Follow-Up< 5 - 50 ug/g Normal None>50 -120 ug/g Borderline Re-evaluate in 4-6 weeks >120 ug/g Abnormal Repeat as clinically indicatedPerformed at: [facility] [id number] Director: Dasha Lowery MD, Phone: [phone] Calprotectin (Stl) [Mass/Mass]65 ug/g0-120[facility] Comment on above:Concentration Interpretation Follow-Up< 5 - 50 ug/g Normal None>50 -120 ug/g Borderline Re-evaluate in 4-6 weeks >120 ug/g Abnormal Repeat as clinically indicatedPerformed at: [facility] [address] [id number] Director: Dasha Lowery MD, Phone: [phone] Calprotectin, Fecalon 36-08-8037Aulewffiscge, Lkgqj85Wbqbeq2-573Sdo [facility] Physician GroupComment on above:Result Comment: Concentration Interpretation Follow-Up < 5 - 50 ug/g Normal None >50 -120 ug/g Borderline Re-evaluate in 4-6 weeks >120 ug/g Abnormal Repeat as clinically indicated Performed at: [facility] [address] [place], [place] [id number] Senior Patient Account Representative: Dasha Lowery MD, Phone: [phone] PERFORMED BY: [facility] [address] [place] [address] PATHOLOGIST AUDIO VISUAL MANAGER RODNEY QUEZADA M.D.Performed By: #### CALPROTECT #### [facility] ,Laboratory - Chemistry and Chemistry - challengeon 73-19-2543FSU Qn1.781 m[IU]/L0.358-3.740T[facility]edo HospitalOffice Visiton 07-25-2024 Follow-up [id number] Poornima Barker 1975 F Date Provider Department Center 07/25/2024 [facility] Family History Problem Relation Age of Onset Coronary artery disease Mother Stroke Father Family Status - Relation Status Age at Mother Father Level of Service:[address]66 [place] OFFICE/OUTPATIENT NEW MODERATE MDM 45 MINUTES Reason for Visit and Comments: Syncope [506] - Had syncopal episode back in Apr 2024. Echo was performed a few weeks ago. She did not feel chest pain, SOB, or palpitations. Dizziness [885753]NormalUnKindred Hospital DaytonElastase.pancreatic [Mass/mass] in Stoolon 68-05-4317Etyvgnvu.pancreatic (Stl) [Mass/Mass]232>200 [facility] HospitalComment on above:Result Units: ug Elast./g Severe Pancreatic Insufficiency: <100 Moderate Pancreatic Insufficiency: 100 - 200 Normal: >200Performed at: [facility] [id number] Director: Dasha Lowery MD, Phone: [phone] Panel Informationon 06-00-8267Awdhzmdjfzg difficile (PCR)(LAB)NegativeNEGATIVE [facility] HospitalMiscellaneous Test CommentSee St. Mary's Medical CenterComment on above:Specimen Source: ST - Stool - Stool - 700.100Stool Campylobacter Culture Res 1See St. Mary's Medical CenterComment on above:[facility],No Panel InformationOrdered By: Dinesh Bobo on 11-07-2023E coli Shiga Toxin [facility] Salmonella/Shigella ScreenToledo HospitalNonvisit Note - OTon 02-27-6533Spwqculr Note - OT, pt cxl'd in remind system, no reason available. [facility] CenterNonvisit Note - OTon 59-77-6092Zemmvurv Note - OTpt cxl'd in remind system, no reason available.[facility] CenterNonvisit Note - OTon 80-31-1721Tpqnemym Note - OTPt. cx, d/t an emergency. [facility] CenterOT - Home Exercise Programon 70-88-2421AU - Home Exercise [id number]#1.00CD:[address] HospitalOT - Progress Noteson 95-95-6598VE - Progress Notes [id number]#1.00CD:[address] [place], [place] [address]OT - Orderson 46-50-0357RI - Orders [id number]#1.00CD:127[facility] CenterOT - Assessmentson 70-91-9217PP - Assessments [id number]#1.00CD:127[facility] CenterOT - Consentson 69-35-7197NS - Consents [id number]#1.00CD:127[facility] CenterOT - Home Exercise Programon 52-81-5212BF - Home Exercise Program [id number]#1.00CD:127[facility] CenterCoding Summary.on 01-34-4824Cvqxed Summary. CD:229647Zhfz96NZr4xAl+PGhlYWQ+XC5IKDDoW34pmOTfbN9hE7QTKNlMJlqqLIEMEKeOAhXdoaMkL A7iiFQjQYVc [file] cHNlOiBj (more content not included)...NormalUpper Valley Medical CenterConsent for Treatmenton 03-78-6757Gqninri for Treatment [id number]#1.00CD:[address] [place], [place] [address]OT - Orderson 11-67-7696FR - Orders [id number]#1.00CD:[address] [place], [place] [address]PT - Orderson 36-56-7985EO - Orders [id number]#1.00CD:[address] [place], [place] [address]Comment on above:Other Comment: ot...not ptIntraOperative Documentson 68-13-8299EfphlSehslktdg Documents [id number]#1.00CD:[address] [place], [place] [address]Coding Summary.on 88-75-3059Ociqsv Summary. CD:[id number]:5761037UGs6zGk+PGhlYWQ+NG5FWXAbG81fgJKjaJ7gN9QYYThPOfsgEZDOHLpFVwMpv bJuTE8aiAIsBAZo [file] YXBz (more content not included)...NormalUpper Valley Medical CenterPhysician Orderon 84-93-5984Linvyqveh Order [id number]#1.00CD:[address] [place], [place] [address]Coding Summary.on 38-90-7609Lwbiyf Summary. CD:704388OK:9215006WDk2rVe+PGhlYWQ+IY0QNRPaO67juQMihD9UX7oNSQ6VQYABVBHACE9YIW3wz HI2WZvjX3GfhhHl [file] bGU9 (more content not included)...[facility] CenterConsent for Anesthesiaon 55-96-1819Uzwqtfu for Anesthesia [id number]#1.00CD:[address] [place], [place] [address]Discharge Instructionson 16-08-8838Wehwzcggp Instructions [id number]#1.00CD:127[facility] Medical CenterIntraOperative Documentson 58-47-5913MyvfkVmenaqqlm Documents [id number]#1.00CD:127[facility] CenterIntraOperative Documents [id number]#1.00CD:[address] [place], [place] [address]Main OR Intraoperative Recordon 24-80-4420Xzej OR Intraoperative Record IntraOp Document Type FT Summary Primary Physician: Reza Proctor DO Finalized Date/Time: 08/21/22 12:38:52 Pt. Name: POORNIMA BARKER/Sex: 1975 Female Med Rec #: [id number] Physician: Reza Proctor DO Financial #: [id number] Pt. Type: A Room/Bed: [facility] Admit/Disch: 08/18/22 06:24:59 - 08/18/22 14:30:00 Institution: [...] Danyel HARVEY, David Proctor DO, Reza Palacios CST, Erin Franco Role Performed Anesthesiologist of Surgeon - Primary PAPER ROLL MACHINE OPERATOR/SA Record Time In 08/18/22 09:53:00 08/18/22 09:53:00 08/18/22 09:53:00 Time Out 08/18/22 11:01:00 08/18/22 11:01:00 08/18/22 11:01:00 Procedure ULNAR NERVE ULNAR NERVE ULNAR NERVE TRANSPOSITION(Left) TRANSPOSITION(Left) TRANSPOSITION(Left) Comments Last Modified By: Tuyet Morel Kelsie E Sayler, Kelsie E 08/18/22 11:05:46 08/18/22 11:05:46 08/18/22 11:05:46 Entry 4 Entry 5 Case Attendee Tuyet Morel Jessica D Role Performed Audograph Operator - Primary Scrub - Primary Time In 08/18/22 09:53:00 08/18/22 09:53:00 Time Out 08/18/22 11:01:00 08/18/22 11:01:00 Procedure ULNAR NERVE ULNAR NERVE TRANSPOSITION(Left) TRANSPOSITION(Left) Comments Last Modified By: Tuyet Morel Kelsie E 08/18/22 11:05:46 08/18/22 11:05:46 General Comments: CHIN KAPOOR STUDENT, SCRUBBED IN AND IN ATTENDANCE.BROOKE BRIAN. ANTONINO HUTCHISON, ARTHMELISSA REP, IN ATTENDANCE.BROOKE BRIAN. Perioperative Protocols FT [...] and tissue Entry 1 Skin Integrity Intact, [place], Warm, and Skin Abnormality No D (more content not included)...NormalUpper Valley Medical CenterPreoperative Documentson 03-81-5461Wwooidtdfega Documents [id number]#1.00CD:127[facility] CenterConsent for Treatmenton 09-21-6318Uixvyhh for Treatment [id number]#1.00CD:[address] [place], [place] [address]H&P Updateon 08-18-2022H&P Update [id number]#1.00CD:[address] [place], [place] [address]Inpatient Patient Summaryon 52-84-3903Nymnjpgej Patient Summary [address] [address] [facility] Clinical Discharge Instructions PERSON INFORMATION Name: POORNIMA BARKER PHYSICIANS Admitting Physician: Reza Proctor DO Attending Physician: Reza Proctor DO PCP: DINESH BOBO MD Discharge Diagnosis: Comment: PATIENT EDUCATION INFORMATION Instructions: Ric Proctor - Upper Extremity Fracture Surgery (Custom); Post Op Patient Instructions - FT (Custom) Medication Leaflets: Follow up: MEDICATION LIST [facility], [address], [place] [id number], [phone] acetaminophen-hydrocodone ([place] 325 mg-5 mg oral tablet) 1-2 tab(s) Oral q4hr; as needed for pain.Refills: 0. docusate (Colace 100 mg Cap) 1 Capsules By Mouth 2 times a day as needed for constipation. Refills:0. Medications to Continue Taking That Have Changed [facility], [address], [place] [id number], [phone] START: ibuprofen (ibuprofen 600 mg Tab) 1 Tablets By Mouth every 8 hours as needed as needed for pain. with food or milk. Refills: 0. Medications to Continue with No Changes Other Medications cranberry (cranberry oral capsule) esomeprazole (Nexium 40 mg Cap-EC) 1 Capsules By Mouth every day. Comment:[facility] CenterMain OR PACU I Recordon 91-80-8148Dhle OR PACU I RecordPACU Phase I Document Type FT Summary Primary Physician: Reza Proctor DO Finalized Date/Time: 08/18/22 13:17:16 Pt. Name: POORNIMA BARKER/Sex: 1975 Female Med Rec #: [id number] Physician: Reaz Proctor DO Financial #: [id number] Pt. Type: Room/Bed: [place] [address] Admit/Disch: 08/18/22 06:24:59 - Institution: Case Times [...] individualized perioperative plan of care The patient's rightto privacy is maintained The patient's value system, [...] with or improved from baseline levels established preoperativelyThe patient's cardiovascular status is consistent with or improved from baseline levels established preoperatively The patient's cardiovascular status is consistent with or improved from baseline levels established preoperatively The patient demonstrates and/or reports adequate pain control throughout the perioperative period The patient received appropriate medication(s), safely administered during the perioperativeperiod Acuity Level PACU I FT Entry 1 Start Time 08/18/22 11:02:00 Stop Time 08/18/22 11:58:00 Acuity Level Acuity Level I Last Modified By: Luz [place] RN 08/18/22 13:17:11 Finalized By: Luz [place] RN Document Signatures Signed By: Luz [place] RN 08/18/22 13:17[facility] OR PACU II Recordon 30-18-9360Xniw OR PACU II RecordPACU Phase II Document Type FT Summary Primary Physician: Reza Proctor DO Finalized Date/Time: 08/18/22 14:50:45 Pt. Name: LUCEROPOORNIMA/Sex: 1975 Female Med Rec #: [id number] Physician: Reza Proctor DO Financial #: [id number] Pt. Type: A Room/Bed: [place] [address] Admit/Disch: 08/18/22 06:24:59 - Institution: Case Times [...] and monitors body temperature Evaluates postoperative respiratory statusEvaluates postoperative cardiac status Evaluates postoperative neurological status [...] individualized perioperative plan of care The patient's rightto privacy is maintained The patient's value system, [...] with or improved from baseline levels established preoperativelyThe patient's cardiovascular status is consistent with or improved from baseline levels established preoperatively The patient's neurological status is consistent with or improved from baseline levels established preoperatively The patient demonstrates and/or reports adequate pain control throughout the perioperative period The patient received appropriate medication(s), safely administered during the perioperativeperiod Finalized By: Dylan Mcneil Document Signatures Signed By: Dylan Mcneil 08/18/22 14:50NormalUpper Valley Medical CenterMain OR Preoperative Recordon 99-74-7040Dfet OR Preoperative RecordPreOp Document Type FT Summary Primary Physician: Reza Proctor DO Finalized Date/Time: 08/18/22 10:25:18 Pt. Name: POORNIMA BARKER/Sex: 1975 Female Med Rec #: [id number] Physician: Reza Proctor DO Financial #: [id number] Pt. Type: A Room/Bed: [place] [address] Admit/Disch: 08/18/22 06:24:59 - Institution: Case Times [...] Document Signatures Signed By: Tuyet Morel 08/18/22 10:25NormAdena Fayette Medical CenterMonitor Recordon 96-19-9084Pokpjzp [id number]#1.00CD:127 [facility] CenterMonitor Record [id number]#1.00CD:127NoFirelands Regional Medical CenterOperative Reporton 98-58-1375Cbhrfyjau ReportPatient: POORNIMA BARKER Age: 47 years Sex: Female : 1975 Associated Diagnoses: None Author: Reza Proctor DO DATE OF SURGERY: 08/18/2022 SURGEON: Reza Proctor D.O. LARGE ANIMAL HUSBANDRY TECHNICIAN: Erin Palacios CFA PREOPERATIVE DIAGNOSIS: Chronic extensor tendinosis, left elbow POSTOPERATIVE DIAGNOSIS: Chronic extensor tendinosis, left elbow PROCEDURE: 1. Open common extensor tendon debridement, left elbow 2. Application of short arm volar fiberglass splint ANESTHESIA: General with regional block ANESTHESIOLOGIST: David Montaño MD IMPLANTS: Arthrex 3.0 mm knotless suture tack anchor OPERATIVE INDICATIONS: Poornima is a 47-year-old wwwgg-gqrl-pwroivwh female who has had persistent pain over [...] the elbow was made. Dissection was carried downthrough the subcutaneous tissues. Full-thickness skin flaps were developed. The ECRL was identifiedand split longitudinally in line with its fibers. The diseased ECRB tendon was then visualized. Thetendinopathic tissue was resected with a scalpel. Soft [...] into the socket. A free needle was usedto pass the repair suture through the split in the common extensor in a running jpaymf-bn-vvldf. The distal aspect of the suture was [...] anesthesia having tolerated the procedure well. She w as transported recovery room in good condition. Sponge and needle counts were correct. No specimen,no blood loss, no complications. The case was clean and elective. Reza Proctor D.O.[facility] CenterComment on above:Result Comment: Electronically Signed By: Reza Proctor DO.br\Date and Time Signed: 08/18/22 15:01 ESTOperative ReportPatient: POORNIMA BARKER Age: 47 years Sex: Female [...] Using maximal sterile barrier technique per current [facility] guidelines including hand hygeine, Guidance (Ultrasound [...] observed, Periodic negative attempts at aspiration of bloodwere made as the local was injected, No pain or parathesia were elicited with injection of the anesthetic in the conscious patient, It was idetified that the correct anesthetic agent was administeredto the correct site. Complications: None, The patient tolerated the procedure as expected.Normal [facility] Valley Medical CenterComment on above:Result Comment: Electronically Signed By: David Montaño MD\.br\Date and Time Signed: 08/18/22 08:24 EST Outpatient Surgery Discharge Instructionon 29-27-6251Qmgwhovnfg Surgery Discharge Instruction [place] [address] Patient Discharge Instructions PERSON INFORMATION Name: POORNIMA [...] were given Patient Signature Date Clinican/Nurse Signature Date Follow up: Pharmacy Information: You may receive a survey from [facility] asking you to rate your care experience. Your feedback is important and will help us understand what we do well and how we can improve the quality of care we provide to you, your loved ones and our community. It?s an honor to serve you. Thank you for choosing [facility] HERE ARE THE MEDICATION CHANGES THAT OCCURRED DURING YOUR HOSPITAL STAY [facility], [address] [facility] [place], [place] [id number], [phone] acetaminophen-hydrocodone ([place] 325 mg-5 mg oral tablet) 1-2 tab(s) Oral q4hr; as needed for pain.Refills: 0. docusate (Colace 100 mg Cap) 1 Capsules By Mouth 2 times a day as needed for constipation. Refills:0. Medications to Continue Taking That Have Changed [facility], [address], [place] [id number], [phone] START: ibuprofen (ibuprofen 600 mg Tab) 1 Tablets By Mouth every 8 hours as needed as needed for pain. with food or milk. Refills: 0. Medications to Continue with No Changes Other Medications cranberry (cranberry oral capsule) esomeprazole (Nexium 40 mg Cap-EC) 1 Capsules By Mouth every day. 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 It is therefore advised notto drive until after your first office visit following surgery. Do not drive while taking pain medication. 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 It is therefore advised notto drive until after your first office visit following surgery. Do not drive while taking pain medication. Reza Proctor, DO [facility] [address] [place] [address] Reviewed: [facility] CenterProgress Note-Physicianon 80-22-0271Mslhebdl Note-PhysicianPatient: POORNIMA BARKER Age: 47 years Sex: Female : 1975 Associated Diagnoses: None Author: David Montaño MD Postoperative Information Postoperative disposition: Postoperative disposition: To PACU. Optimetrix number: Optimetrix number [id number]. Anesthetic utilized: General. Regional: adductor canal block. Health Status Problem list: All Problems Acid reflux / SNOMED CT 001673330 / Confirmed Endometriosis / SNOMED CT 761250670 / Confirmed History of seizures / SNOMED CT 5786296953 / Confirmed Migraines / SNOMED CT 81282703 / Confirmed Pseudotumor cerebri / SNOMED CT 931409257 / Confirmed Smoker / SNOMED CT 316744466 / Confirmed Added secondary to documentation in [...] to Ambulatory Surgery Unit, and To home ).[facility] Comment on above:Result Comment: Electronically Signed By: David Montaño MD\.br\Date and Time Signed: 08/18/22 16:43 ESTProgress Note-PhysicianPatient: POORNIMA BARKER Age: 47 years Sex: Female [...] Routine, Start date 08/18/22 6:42:00 EST, 08/18/22 6:42:00EST Lactated Ringers IV Inessa 1000 mL 1,000 [...] All Problems Acid reflux / SNOMED CT 635159886 / Confirmed Endometriosis / SNOMED CT 493513006 / Confirmed History of seizures / SNOMED CT 1023120849 / Confirmed Migraines / SNOMED CT 28910252 / Confirmed Pseudotumor cerebri / SNOMED CT 784898734 / Confirmed Smoker / SNOMED CT 001809417 / Confirmed Added secondary to documentation in Social History., Active Problems (6) Acid reflux Endometriosis History of seizures Migraines Pseudotumor cerebri Smoker Histories Past Medical History: No active or resolved past medical history items have been selected or recorded. Family History: No family history items have been selected or recorded. Procedure history: Cholecystectomy (34450964). History of total hysterectomy (5758954543). Excision of cyst on neck (0751574213). Excision of cyst bilat ovaries (9150285685). Colonoscopy (234021843). Procedure on brain ventricular shunt (7811100875). Social History Social & Psychosocial Habits Alcohol [...] 08/18/2022 6:36 EST Height (more content not included)...[facility] CenterComment on above:Result Comment: Electronically Signed By: Danyel HARVEY, David Allen.br\Date and Time Signed: 08/18/22 06:50 ESTConsent for Procedure/Surgeryon 24-12-2399Cunfjpo for Procedure/Surgery [id number]#1.00CD:127[facility] Medical CenterPhysician Orderon 72-03-0404Griuhqfyd Order [id number]#1.00CD:127NormAdena Fayette Medical CenterBUNon 91-04-0340Jrff nitrogen [Mass/Vol]10 mg/dLNormal11-12[facility] Medical CenterComment on above:Performed By: #### 8882537, 5851505, 11872352, 9511270, 6980960, 6890756 ####[facility] [address] [place], [place] [address]CLY w/Indiceson 18-52-6864Htqrcxbctau distribution width (RBC) [Ratio]14.8 %High10.9-14.2FMercy Health Perrysburg HospitalComment on above: Performed By: #### 5779378, 0945659, 89016313, 2439379, 3550751, 3327070 ####[facility] [address] [place] [address] Hematocrit (Bld) [Volume fraction]38.8 %Fqktfz62.0-46.0[facility] Medical CenterComment on above:Performed By: #### 2246228, 9211079, 80624967, 3315602, 6428251, 1367026 ####[facility] [address] [place], [place] [address]Kttxtggpfk (Bld) [Mass/Vol]12.9 g/gPMgxwrt97.0-16.0[facility] Medical CenterComment on above:Performed By: #### 6905549, 5054625, 03409003, 6575943, 1328566, 7833740 ####[facility] [address] [place], [place] [address]SNF (RBC) [Entitic mass]29.3 pgNormal 27.0-34.0[facility] Valley Medical CenterComment on above:Performed By: #### 1757514, 9641138, 56735187, 2885561, 6337872, 4931769 ####[facility] [address] [place], [place] [address]CHLK (RBC) [Mass/Vol]33.4 g/dLNormal 31.4-36.0[facility] Medical CenterComment on above:Performed By: #### 7340772, 2588967, 86256098, 4622757, 1909415, 3344002 ####[place] [address] [place], [place] [address]CGN (RBC) [Entitic vol]87.7 fLNormal 80.0-100.0[facility] Medical CenterComment on above:Performed By: #### 0558306, 3860337, 15265479, 6280467, 6597755, 8166733 ####[address] [address]Ljbohwgu mean volume (Bld) [Entitic vol]8.3 fLNormal6.4-10.8Upper [facility] Medical CenterComment on above: Performed By: #### 1602922, 2740442, 14835304, 2057971, 0268851, 5299964 ####[address] [address] Platelets (Bld) [#/Vol]278.0 E9/IFlbdnf509.0-500.0[facility] Comment on above:Performed By: #### 7009307, 9609827, 38175227, 7708590, 1458590, 4081379 ####[address] [address]YCD (Bld) [#/Vol]4.4 E12/LNormal4.3-5.9Upper [facility] Medical CenterComment on above:Performed By: #### 5426853, 0863473, 39088021, 8111870, 8335760, 5825276 ####[facility] [address] [place], [place] [address]OJU corrected for nucl RBC Auto (Bld) [#/Vol]10.7 E9/LNormal 4.0-11.0[facility] Medical CenterComment on above:Performed By: #### 4048332, 0844643, 65832868, 7466207, 2159479, 0385597 ####[facility] [address] [place], [place] [address]FTDXGWRWQRsovlxv By: SYSTEM SYSTEM on 80-42-8882Ahtaa gap [Moles/Vol]12 mmol/LNormal6 - 16 mEq/LFTMC RemisolChloride [Moles/Vol]108 mmol/UCpykai128 - 111 mmol/LFTMC RemisolCO2 [Moles/Vol]26 mmol/L Lqlivu26 - 31 mmol/LFTMC RemisolCreatinine [Mass/Vol]0.9 mg/dLNormal0.5 - 1.3 mg/dLFTMC RemisolGFR/1.73 sq M.predicted among blacks MDRD (S/P/Bld) [Vol rate/Area]mL/min/1.73 o0Ewdpkt>=59mL/min/1.73 m2FTMC Chem SGFR/1.73 sq M.predicted among non-blacks MDRD (S/P/Bld) [Vol rate/Area]mL/min/1.73 b9Acqdtv >=59mL/min/1.73 m2FTMC Chem SGlucose [Mass/Vol]96 mg/iUBjallu42 - 199 mg/dLFTMC RemisolPotassium [Moles/Vol]3.6 mmol/LNormal3.5 - 5.3 mmol/LFTMC RemisolSodium [Moles/Vol]142 mmol/NUgwfwp609 - 145 mmol/LFTMC RemisolUrea nitrogen [Mass/Vol] 10 mg/dLNormal5 - 21 mg/dLFTMC RemisolConsent for Treatmenton 25-78-0173Dlffsjd for [id number]#1.00CD:127NormalUpper Valley Medical CenterCreatinineon 84-28-9231Szbrkjbdzl [Mass/Vol]0.9 mg/dLNormal 0.5-1.3[facility] Orthopaedic InstituteComment on above:Performed By: #### 6538224, 4187039, 52028237, 4391082, 7533851, 9723514 ####[facility] [address] [place], [place] [address]Wfgcdboun 73-62-3480Nhssjlh [Mass/Vol]96 mg/fJBnuwei29-189LvgxrbUpper Valley Medical CenterComment on above: Performed By: #### 6908391, 9602717, 20356834, 2438624, 4215720, 8080867 ####[facility] [address] [place] [address] HEMATOLOGYOrdered By: Laura Humphrey on 81-13-5142Thngtflgefc distribution width (RBC) [Ratio]14.8 %High10.9 - 14.2 %[facility] HemeAutoSSHematocrit (Bld) [Volume fraction]38.8 %Aqipdd64.0 - 46.0 %[facility] HemeAutoSSHemoglobin (Bld) [Mass/Vol]12.9 g/hEKdkqwh65.0 - 16.0 gm/dLFTMC HemeAutoSSMCH (RBC) [Entitic mass]29.3 tqIpzlvk19.0 - 34.0 pgFTMC HemeAutoSSMCHC (RBC) [Mass/Vol]33.4 g/dL Tnaozu82.4 - 36.0 gm/dLFTMC HemeAutoSSMCV (RBC) [Entitic vol]87.7 jEJdvmdm71.0 - 100.0 fLFTMC HemeAutoSSPlatelet mean volume (Bld) [Entitic vol]8.3 fLNormal6.4 - 10.8 fLFTMC HemeAutoSSPlatelets (Bld) [#/Vol]278.0 E9/PAvhfbe632.0 - 500.0 E9/L [facility] HemeAutoSSRBC (Bld) [#/Vol]4.4 E12/LNormal4.3 - 5.9 E12/LFTMC HemeAutoSSWBC corrected for nucl RBC Auto (Bld) [#/Vol]10.7 E9/LNormal4.0 - 11.[address] HemeAutoSSLyteson 63-53-0443Ipssi gap [Moles/Vol]12 mmol/LNormal6-16[facility] Medical CenterComment on above:Performed By: #### 5115345, 9892874, 04835464, 4843927, 1133293, 0118999 ####[facility] [address] [place], [place] [address]Tbbqhvjx [Moles/Vol]108 mmol/NFdjpev616-095TifqxmUpper Valley Medical CenterComment on above:Performed By: #### 7627459, 7250245, 00753662, 6921077, 2855551, 9328402 ####[facility] [address] [place], [place] [address]XT[address] [Moles/Vol]26 mmol/AOyikaw81-08AxjskaUpper Valley Medical CenterComment on above:Performed By: #### 0388741, 8903426, 69376933, 0116628, 1525569, 9354912 ####[facility] [address] [place], [place] [address]Mmrvbjsmj [Moles/Vol]3.6 mmol/LNormal3.5-5.3FMercy Health Perrysburg HospitalComment on above:Performed By: #### 6748915, 9562416, 79022810, 9599885, 3728562, 8812004 ####[facility] [address] [place], [place] [address]Zhohnv [Moles/Vol]142 mmol/NYdhzbq789-562OuitplUpper Valley Medical CenterComment on above:Performed By: #### 2766724, 7994541, 39638326, 0713255, 7495163, 9794086 ####[facility] [address] [place], [place] [address]SO Chest 2 Viewson 32-14-4366US Chest 2 ViewsExam Date/Time: 08/08/2022 16:00 EST Reason for Exam: [...] Buenrostro MD, V. Transcribed by: CANDELARIA Technologist: [facility] - AkroneGFRon 11-24-1242LOZ/1.73 sq M.predicted among blacks MDRD (S/P/Bld) [Vol rate/Area] mL/min/{1.73_m2}Normal>=59Upper [facility] Medical CenterComment on above:Order Comment: Order added by Discern Expert.Result Comment: eGFR is race adjusted. AA=.Performed By: #### 4888449, 7280268, 90712796, 2542140, 7156105, 1269446 ####[facility] [address] [place], [place] [address]OFH/1.73 sq M.predicted among non-blacks MDRD (S/P/Bld) [Vol rate/Area]mL/min/{1.73_m2}Normal>=59[facility] Medical CenterComment on above:Order Comment: Order added by Discern Expert.Result Comment: Chronic kidney disease could be indicated at eGFR's of less than 60 mL/min/1.73m2. K idney failure is indicated at less than 15 mL/min/1.73m2.Performed By: #### 6013479, 5283057, 21260633, 4032104, 7184184, 1977460 ####[facility] [address] [place], [place] [address]DY HEAD WO CONon 99-07-9961VB HEAD WO CONEXAMINATION: CT HEAD WO CON HISTORY: Benign intracranial [...] Electronically authenticated by: ROSANNE PERKINS Date: 2021-10-31 14:25[facility] 1 Von 66-26-0420XX CHEST 1 VEXAM: XR CHEST 1 V HISTORY: Benign intracranial [...] Electronically authenticated by: ЕЛЕНА ROBERT Date: 2021-10-21 15:50[facility] HospitalXR KUB 1 VIEWon 63-31-1296RT KUB 1 VIEWEXAM: XR KUB 1 VIEW, XR SKULL LESS THAN 4 VIEWS Clinical Indication: Benign intracranial hypertension Comparison: None FINDINGS: Images of the skull shows a right-sided GRADES 9 THROUGH 12 TEACHER shunt tube, coursing along the right side of the neck and chest into the right side of the abdomen The supine and upright views of the abdomen shows a non-obstructive bowel gas pattern. There is no abnormal dilatation of bowel loops. No significant air fluid levels. There is no pneumoperitoneum. Right-sided GRADES 9 THROUGH 12 TEACHER shunt is seen, with the tip in the area of the bladder. Cholecystectomy changes are seen. There are no clinically significant osseous abnormalities noted. IMPRESSION: Unremarkable abdominal series The shunt tube begins in the right cerebral hemisphere, and terminates in the pelvis. No obvious discontinuity or kink SL: 414RRA Electronically authenticated by: ЕЛЕНА ROBERT Date: 2021-10-21 16:49[facility] Vital Signs Date TimeVital SignValuePerforming KvxyswfrrCsrdqlfb20-66-4860 14:52-0400Body .48 cmDinesh Bobo MD Work Phone: [phone]09-22-2025 14:52-0400 Body mass index (BMI) [Ratio]34.7 kg/g3AkkgxzDinesh Bobo MD Work Phone: [phone] [place], [place] 4876709-22-2025 14:52-0400 Body xmvvsu08.18 Mason Bobo MD Work Phone: [phone] [place], [place] 4876[address]-22-2025 14:52-0400 Diastolic blood ugjsdmza94 mm[Hg]Dinesh Bobo MD Work Phone: 1(675)[address] [place], [place] [address]-22-2025 14:52-0400 Heart rate71 /Dixon Bobo MD Work Phone: [phone] [place], [place] [address]-22-2025 14:52-0400 SaO2% (BldA) [Mass fraction]97 %Dinesh Bobo MD Work Phone: [phone])[address] [place], [place] 4876[address]-22-2025 14:52-0400 Systolic blood xfmasxot34 mm[Hg]Dinesh Bobo MD Work Phone: [phone] [place], [place] 4876[address]-17-2025 09:55-0400 Body qdeasn37.18 Mason Bobo MD Work Phone: 1([phone] [place], [place] 4876[address]-17-2025 09:55-0400 Diastolic blood wruhccds78 mm[Hg]Dinesh Bobo MD Work Phone: 1(399)[address] [place], [place] [address]-17-2025 09:55-0400 Heart rate70 /Dixon Bobo MD Work Phone: 1(948)[address] [place], [place] [address]-17-2025 09:55-0400 SaO2% (BldA) [Mass fraction]97 %Dinesh Bobo MD Work Phone: [phone])[address] [place], [place] 4876[address]-17-2025 09:55-0400 Systolic blood piuanroe917 mm[Hg]Dinesh Bobo MD Work Phone: 1(939)[address] [place], [place] 4876[address]-27-2025 10:43-0400 Body ztjsof460.48 cmDinesh Bobo MD Work Phone: 1(167)[address] [place], [place] 4876[address]-27-2025 10:43-0400 Body mass index (BMI) [Ratio]34.5 kg/b5VcwokzDinesh Bobo MD Work Phone: 1(116)[address] [place], [place] 4876708-27-2025 10:43-0400 Body jsoikoauuum28.6 [degF]Dinesh Bobo MD Work Phone: 1(545)[address] [place], [place] 4876[address]-27-2025 10:43-0400 Body hfozqz77.72 kgDinesh Bobo MD Work Phone: 1(217)[address] [place], [place] 4876708-27-2025 10:43-0400 Diastolic blood hslcgwig77 mm[Hg]Dinesh Bobo MD Work Phone: 1(440)[address] [place], [place] 4876[address]-27-2025 10:43-0400 Heart rate66 /Dixon Bobo MD Work Phone: 1(701)[address] [place], [place] 4876708-27-2025 10:43-0400 Respiratory rate18 /Dixon Bobo MD Work Phone: [phone])[address] [place], [place] 4876[address]-27-2025 10:43-0400 SaO2% (BldA) [Mass fraction]96 %Dinesh Bobo MD Work Phone: 1(597)[address] [place], [place] 4876708-27-2025 10:43-0400 Systolic blood jdrlexib887 mm[Hg]Dinesh Bobo MD Work Phone: 1(617)[address] [place], [place] 4876708-05-2025 13:31-0400 Body .94 cmDinesh Bobo MD Work Phone: 1(160)[address] [place], [place] 4876708-05-2025 13:31-0400 Body mass index (BMI) [Ratio]35.9 kg/u9JpvesuDinesh Bobo MD Work Phone: 1(029)[address] [place], [place] 4876708-05-2025 13:31-0400 Body ueaywd15.18 kgDinesh Bobo MD Work Phone: 1(205)[address] [place], [place] 4876708-05-2025 13:31-0400 Diastolic blood qfyupbmv57 mm[Hg]Dinesh Bobo MD Work Phone: 1(668)[address] [place], [place] 4876708-05-2025 13:31-0400 Heart rate85 /Dixon Bobo MD Work Phone: 1(897)[address] [place], [place] 4876708-05-2025 13:31-0400 Systolic blood eliajnni85 mm[Hg]Dinesh Bobo MD Work Phone: 1(109)[address] [place], [place] 4876707-22-2025 13:18-0400 Body bffkka632.94 cmDinesh Bobo MD Work Phone: 1(392)[address] [place], [place] 4876707-22-2025 13:18-0400 Body mass index (BMI) [Ratio]35.3 kg/z2LlgyzzDinesh Bobo MD Work Phone: 1(458)[address] [place], [place] 4876707-22-2025 13:18-0400 Body gpkeqb08.82 kgDinesh Bobo MD Work Phone: 1(969)[address] [place], [place] 4876707-22-2025 13:18-0400 Diastolic blood mgepcusz27 mm[Hg]Dinesh Bobo MD Work Phone: 1(891)[address] [place], [place] 4876707-22-2025 13:18-0400 Heart rate82 /Dixon Bobo MD Work Phone: 1(068)[address] [place], [place] 4876707-22-2025 13:18-0400 Systolic blood sgkbbvpy22 mm[Hg]Dinesh Bobo MD Work Phone: 1(003)[address] [place], [place] 4876706-27-2025 13:03-0400 Body xaixoc299.94 cmDinesh Bobo MD Work Phone: 1(561)[address] [place], [place] 4876706-27-2025 13:03-0400 Body mass index (BMI) [Ratio]35.6 kg/t0BcvspoDinesh Bobo MD Work Phone: 1(356)[address] [place], [place] 4876706-27-2025 13:03-0400 Body dimuhu37.72 kgDinesh Bobo MD Work Phone: 1(238)[address] [place], [place] 4876706-27-2025 13:03-0400 Diastolic blood rafmvsph00 mm[Hg]Dinesh Bobo MD Work Phone: 1(172)[address] [place], [place] 4876706-27-2025 13:03-0400 Heart ttfo152 /Dixon Bobo MD Work Phone: 1(382)[address] [place], [place] 4876706-27-2025 13:03-0400 Systolic blood onzdlslo38 mm[Hg]Dinesh Bobo MD Work Phone: 1(948)[address] [place], [place] 4876705-30-2025 10:57-0400 Body ebkxln957.94 cmDinesh Bobo MD Work Phone: 1(807)[address] [place], [place] 4876705-30-2025 10:57-0400 Body mass index (BMI) [Ratio]36.1 kg/i6DimylgDinesh Bobo MD Work Phone: 1(079)[address] [place], [place] 4876705-30-2025 10:57-0400 Body zitren91.86 kgDinesh Bobo MD Work Phone: 1(034)[address] [place], [place] 4876705-30-2025 10:57-0400 Diastolic blood wqksesdf86 mm[Hg]Dinesh Bobo MD Work Phone: 1(929)[address] [place], [place] 4876705-30-2025 10:57-0400 Heart rate76 /Dixon Bobo MD Work Phone: 1(451)[address] [place], [place] 4876705-30-2025 10:57-0400 Respiratory rate12 /Dixon Bobo MD Work Phone: 1(690)[address] [place], [place] 4876705-30-2025 10:57-0400 SaO2% (BldA) [Mass fraction]96 %Dinesh Bobo MD Work Phone: 1(801)[address] [place], [place] 4876705-30-2025 10:57-0400 Systolic blood yzeqdjpu555 mm[Hg]Dinesh Bobo MD Work Phone: 1(430)[address] [place], [place] 4876704-22-2025 09:50-0400 Body ldtnbo770.94 cmDinesh Bobo MD Work Phone: 1(645)[address]04-22-2025 09:50-0400 Body mass index (BMI) [Ratio]35.6 kg/d5FpouhwDinesh Bobo MD Work Phone: 1(206)[address]04-22-2025 09:50-0400 Body kxhauyjciei06.7 [degF]Dinesh Bobo MD Work Phone: 1(230)[address]04-22-2025 09:50-0400 Body .72 kgDinesh Bobo MD Work Phone: 1(095)[address]04-22-2025 09:50-0400 Diastolic blood uvwavcfq45 mm[Hg]Dinesh Bobo MD Work Phone: 1(068)[address]04-22-2025 09:50-0400 Heart qmrr707 /Dixon Bobo MD Work Phone: 1(673)[address]04-22-2025 09:50-0400 SaO2% (BldA) [Mass fraction]95 %Dinesh Bobo MD Work Phone: 1(315)[address]04-22-2025 09:50-0400 Systolic blood zwmqpagj33 mm[Hg]Dinesh Bobo MD Work Phone: 1(608)[address]04-09-2025 14:27-0400 Body [facility]859.94 [facility] 14:27-0400Body mass index (BMI) [Ratio]34.5 kg/j6DeecpeabqToledo Hospital04-09-2025 14:27-0400Body hamwye16 kgT[facility]edo [facility]04-09-2025 14:27-0400 Diastolic blood eiwfcjho48 mm[Hg][facility]04-09-2025 14:27-0400Heart rate71 /[facility]04-09-2025 14:27-0400Systolic blood eudimhxk771 mm[Hg][facility] 07-04-2024 09:25-0500Body erdalu646.94 cmT[facility] 07-04-2024 09:25-0500Body mass index (BMI) [Ratio]34.5 kg/e0EbfxhogkcToledo Hospital01-10-2025 09:25-0500Body gmimmf45.03 kgToledo Hospital01-10-2025 09:25-0500Diastolic blood btiyrmng17 mm[Hg][facility]01-10-2025 09:25-0500Heart rate78 /minToledo Hospital01-10-2025 09:25-0500Systolic blood mm[Hg][facility]10-04-2024 09:08-0400Body nfaael942.94 cmMD Dinesh Bobo Work Phone: 1(562)[address]10-04-2024 09:08-0400 Body mass index (BMI) [Ratio]34 kg/m2MD Dinesh Bobo Work Phone: 1(032)554-[address] [place], [place] 7520910-04-2024 09:08-0400 Body jtvici70.64 kgMD Dinesh Bobo Work Phone: 1(792)971-78[facility]07-15-2024 13:41-0400 Diastolic blood komsxkug57 mm[Hg]MD Diensh Bobo Work Phone: 1(758)582-84[facility]07-15-2024 13:41-0400 Heart rate64 /minMD Dinesh Bobo Work Phone: 1(831)914-41[facility]07-15-2024 13:41-0400 Respiratory rate16 /minMD Dinesh Bobo Work Phone: 1(358)094-95[facility]07-15-2024 13:41-0400 SaO2% (BldA) [Mass fraction]100 %MD Dinesh Bobo Work Phone: 1(412)513-32[facility]07-15-2024 13:41-0400 Systolic blood yywquioe59 mm[Hg]MD Dinesh Bobo Work Phone: 1(985)767-49[facility]07-15-2024 11:34-0400 Body .94 cmMD Dinesh Bobo Work Phone: 1(533)477-17[facility]07-15-2024 11:34-0400 Body .1 kgMD Dinesh Bobo Work Phone: 1(429)[address]06-20-2024 13:10-0400 Body .4 cmMD Dinesh Bobo Work Phone: 1(534)[address]06-20-2024 13:10-0400 Body mass index (BMI) [Ratio]36.3 kg/m2MD Dinesh Bobo Work Phone: 1(182)[address]06-20-2024 13:10-0400 Body .36 kgMD Dinesh Bobo Work Phone: 1(516)[address] [place], [place] 4876704-26-2024 11:28-0400 Diastolic blood arebquqj65 mm[Hg]MD Dinesh Bobo Work Phone: 1(609)[address]04-26-2024 11:28-0400 Heart rate55 /minMD Dinesh Bobo Work Phone: 1(736)[address]04-26-2024 11:28-0400 Respiratory rate16 /minMD Dinesh Bobo Work Phone: 1(886)[address] [place], [place] 4876704-26-2024 11:28-0400 SaO2% (BldA) [Mass fraction]96 %MD Dinesh Bobo Work Phone: 1(252)[address]04-26-2024 11:28-0400 Systolic blood xbailuke06 mm[Hg]MD Dinesh Bobo Work Phone: 1(105)[address]04-26-2024 09:21-0400 Body kouscb141.4 cmMD Dinesh Bobo Work Phone: 1(111)[address]04-26-2024 09:21-0400 Body muxwmz23.36 kgMD Dinesh Bobo Work Phone: 1(538)[address]04-10-2024 10:40-0400 Body .75 [facility]04-10-2024 10:40-0400Body mass index (BMI) [Ratio]34 kg/z9EqgleahraToledo Hospital04-10-2024 10:40-0400Body ijkhjq98.72 kgToledo Hospital03-15-2024 11:27-0400Body mowkpx327.75 cmT[facility]03-15-2024 11:27-0400Body mass index (BMI) [Ratio]34 kg/j0DmazlbjjeToledo Hospital 09-07-2023 11:27-0400Body wkmsaj95.84 kgT[facility] 09-07-2023 11:27-0400Diastolic blood mm[Hg][facility]03-15-2024 11:27-0400Heart rate78 /minToledo Hospital 09-07-2023 11:27-0400Systolic blood itpqslxb061 mm[Hg][facility]01-05-2024 09:45-0500Body sqommp047.75 cmDinesh Bobo Other [facility]01-05-2024 09:45-0500 Body mass index (BMI) [Ratio]34.19 kg/x0LlmiezDinesh Bobo Other [place] [employer] Other 01-05-2024 09:45-0500Body ikehxe42.18 kgDinesh Bobo Other [facility]01-05-2024 09:45-0500 Diastolic blood wzfcedbm59 mm[Hg]Dinesh Bobo Other [facility]01-05-2024 09:45-0500 Systolic blood mm[Hg]Dinesh Bobo Other [facility]02-24-2023 14:08-0500 Heart rate65 /Constantin Proctor [facility]02-24-2023 14:08-7489UqN0% (BldA) [Mass fraction]95 %Reza Proctor [facility]02-24-2023 14:08-0500 Diastolic blood lqifdxwn02 mm[Hg]Reza Proctor [address] [place], [place] 5492202-24-2023 14:08-0500Mean blood tgyngpoa05 mm[Hg]Reza Proctor [address] [place], [place] 5492202-24-2023 14:08-0500 Systolic blood qvcwwyzk802 mm[Hg]Reza Proctor [address] [place], [place] 5492202-24-2023 14:08-0500 Respiratory rate18 /Constantin Proctor [address] [place], [place] 5492202-24-2023 13:04-0500Heart rate71 /Kimberleyjoe Hitesh [address] [place], [place] 5492202-24-2023 13:04-9723MiR2% (BldA) [Mass fraction]92 %Reza Proctor [address] [place], [place] 5492202-24-2023 12:10-5331FaC7% (BldA) [Mass fraction]94 %Reza Proctor [address] [place], [place] 5492202-24-2023 12:06-0500Heart rate75 /Constantin Proctor [address] [place], [place] 5492202-24-2023 12:05-0500 Respiratory rate18 /Constantin Proctor [address] [place], [place] 5492202-24-2023 12:04-0500 Diastolic blood vtdwgbyl51 mm[Hg]Reza Proctor [address] [place], [place] 5492202-24-2023 12:04-0500Mean blood wyfchojk84 mm[Hg]Reza Hitesh [address] [place], [place] 5492202-24-2023 12:04-0500 Systolic blood rkqkdjez062 mm[Hg]Reza Hitesh [address] [place], [place] 5492202-24-2023 12:04-0500Body ikzaxjwfqic11.52 [degF]Reza Proctor [address] [place], [place] 5492202-24-2023 11:55-0500Body mhzmrmbdwom86.7 [degF]Reza Proctor [address] [place], [place] 5492202-24-2023 11:55-0500 Diastolic blood miztrsau46 mm[Hg]Reza Proctor [address] [place], [place] 5492202-24-2023 11:55-0500Mean blood isyecdrm95 mm[Hg]Reza Proctor [address] [place], [place] 5492202-24-2023 11:55-0500 Respiratory rate12 /minReza Proctor [address] [place], [place] 5492202-24-2023 11:55-0500 Systolic blood tusodjxl18 mm[Hg]Reza Proctor [address] [place], [place] 5492202-24-2023 11:45-0500Mean blood gppevtjv43 mm[Hg]Reza Proctor [address] [place], [place] 5492202-24-2023 11:45-0500 Respiratory rate16 /Constantin Proctor [address] [place], [place] 5492202-24-2023 11:30-0500Mean blood qmprvijx26 mm[Hg]Reza Proctor [address] [place], [place] 5492202-24-2023 11:30-0500 Respiratory rate12 /Constantin Proctor [address] [place], [place] 5492202-24-2023 11:02-0500Body slbfzojkxll92.16 [degF]Reza Proctor [address] [place], [place] 5492202-24-2023 10:55-0500 Respiratory rate10 /Constantin Proctor [address] [place], [place] 5492202-24-2023 06:40-0500Mean blood tgrokqek00 mm[Hg]Reza Proctor [address] [place], [place] 5492202-24-2023 06:40-0500Blood Pressure LocationReza Proctor [facility]02-24-2023 06:40-0500Heart rate88 /minReza Proctor [facility]02-24-2023 06:39-0500Body tifftoskyjl41.06 [degF]Reza Proctor [facility]02-24-2023 06:38-0500Blood Pressure LocationReza Proctor [facility]02-22-2023 09:15-0500Body .75 cmDinesh Bobo Other [facility] [employer] Other 02-22-2023 09:15-0500Body mass index (BMI) [Ratio] 35.45 kg/x4GkkxqlDinesh Bobo Other [place] [employer] Other 02-22-2023 09:15-0500Body gxwzim06.36 kgDinesh Bobo Other [employer] Other 02-22-2023 09:15-0500Diastolic blood hcrraqvr20 mm[Hg] Dinesh Bobo Other [employer] Other 02-22-2023 09:15-1698JpX4% (BldA) [Mass fraction]97 % Dinesh Bobo Other [employer] Other 02-22-2023 09:15-0500Systolic blood hlbrtjaf009 mm[Hg] Dinesh Bobo Other [employer] Other 02-14-2023 15:39-0500Diastolic blood nqxkvaww46 mm[Hg] Reza Proctor [facility]02-14-2023 15:39-0500Heart rate71 /Constantin Proctor [address] [place], [place] 5492202-14-2023 15:39-0500Mean blood vezocubt27 mm[Hg]Reza Proctor [address] [place], [place] 5492202-14-2023 15:39-0500 Systolic blood ihcdbwdp015 mm[Hg]Reza Proctor [address] [place], [place] 5492202-14-2023 15:39-0500Heart rate77 /Constantin Proctor [address] [place], [place] 5492202-14-2023 15:39-8738GjW0% (BldA) [Mass fraction]100 %Reza Proctor [address] [place], [place] 5492202-14-2023 15:38-0500 Diastolic blood arccxcgs80 mm[Hg]Reza Proctor [address] [place], [place] 5492202-14-2023 15:38-0500Mean blood kgjerqux55 mm[Hg]Reza Proctor [address] [place], [place] 5492202-14-2023 15:38-0500 Systolic blood zdbixujg546 mm[Hg]Reza Proctor [address] [place], [place] 5492202-14-2023 15:38-0500 Respiratory rate16 /Constantin Proctor [address] [place], [place] 5492205-24-2022 11:00-0400Body .75 cmDaalessandro Bobo Other [employer] Other 05-24-2022 11:00-0400Body mass index (BMI) [Ratio] 33.83 kg/m2Daalessandro Bobo Other [employer] Other 05-24-2022 11:00-0400Body ohqiqr84.28 kgDale Jeramie Other [employer] Other Encounters Encounter DateEncounter TypeCare ProviderFacilityStart: 03-30-2025 End: 44-34-1945mnygxcxxxkFaqrot E Braun MD Work Phone: [facility] Work Phone: Start: 03-30-2025 End: 28-05-3140Mudenmyg ReferredDinesh Bobo MD-LAB [facility] [place] [facility] Start: 03-19-2025 End: 19-59-4106jrgrfkuqbvORNTWGrand Lake Joint Township District Memorial Hospitaltart: 80-49-2284Ucn-patient / Non-visitCatherine Travis [facility] Work Phone: Start: 03-16-2025 End: 85-91-9442sepmvtzqzwQgbenb E Braun MD Work Phone: [facility] Work Phone: Start: 03-16-2025 End: 73-71-2083Ynueeyc encounter procedureDinesh Bobo MD-[facility] Work Phone: Start: 07-44-8863Bvh-patient / Non-visitJaceke Selwyn Morin DO-[facility] Work Phone: Start: 03-11-2025 End: 80-67-7964chmbkzmxvhEscsig E Braun MD Work Phone: [facility] Work Phone: Start: 03-11-2025 End: 05-80-8942Dtoddls encounter procedureChristopher Janice Morin DO-[facility] [place] Work Phone: Start: 23-68-1585Wsh-patient / Non-visitCatherine Travis [facility] Work Phone: Start: 50-26-8113Sdj-patient / Non-visitDarody Núñez MD-[facility] Work Phone: Start: 02-18-2025 End: 57-89-0100dlpdrhjczvSsrrkr E Braun MD Work Phone: [facility] Work Phone: Start: 02-18-2025 End: 23-05-7065Jsgvbxk encounter procedureJaylin Carrero SANDBLAST OPERATOR-[facility] Work Phone: Start: 01-27-2025 End: 81-55-4620duzamjvwxoUpwajp E Braun MD Work Phone: [facility] Work Phone: Start: 01-27-2025 End: 95-93-8720Czdqgml encounter procedureDinesh Bobo MD-[facility] Work Phone: Start: 01-13-2025 End: 22-72-3432lrmghmbankNkyzow E Braun MD Work Phone: [facility] Work Phone: Start: 01-13-2025 End: 55-08-6177Etnsavh encounter procedureDinesh Bobo MD-[facility] Work Phone: Start: 12-19-2024 End: 69-14-3237gzzggemuelOtvdmu E Braun MD Work Phone: [facility] Work Phone: Start: 12-19-2024 End: 29-04-4643Luixdyi encounter procedureDinesh Bobo MD-[facility] Work Phone: Start: 11-21-2024 End: 80-84-4498gmprfjzggnJzfmes E Braun MD Work Phone: [facility] Work Phone: Start: 11-21-2024 End: 97-89-2784Yolnwbf encounter procedureDinesh Bobo MD Work Phone: [facility] Work Phone: Start: 11-07-2024 End: 54-48-9842Vvmiiru encounter procedureDinesh Bobo MD Work Phone: [facility]-CT Scan [facility] [place] Work Phone: Start: 11-07-2024 End: 32-59-6908jpnmwjnwkzRchwso E BraunFacass county health system:[facility] Centertart: 88-72-4419Ros-patient / Non-visitDinesh Bobo MD Work Phone: [facility] Work Phone: Start: 10-14-2024 End: 80-09-6397myszalhgkqNggjil E Braun MD Work Phone: [facility] Work Phone: Start: 10-14-2024 End: 53-68-7434Sreygzh encounter procedureDinesh Bobo MD Work Phone: [facility] Work Phone: Start: 10-03-2024 End: 29-84-2623Gvnrjpv encounter procedureDinesh Bobo MD Work Phone: [facility]-Lab Main [place] Work Phone: Start: 10-03-2024 End: 95-45-8561vossxqglazNzruol E Braun MD Work Phone: [facility] Work Phone: Start: 10-01-2024 End: 06-97-4313ozhglclvziTllezooskWexner Medical Center Work Phone: Start: 10-01-2024 End: 27-38-4755Qqaadts encounter procedureNatalieretreat doctors' hospital Phys[facility] GroupM[facility] Work Phone: Start: 42-02-8963Omc-patient / Non-visitNatalieretreat doctors' hospital Phys[facility] GroupL[facility] Work Phone: Start: 07-25-2024 End: 35-88-3645ghczouioppACQCFOhioHealth Shelby Hospitaltart: 07-04-2024 End: 08-76-1490Bququus encounter procedureNov[facility] Work Phone: Start: 01-46-0443lfmqfxwsyeKgaDypqij Hospital [facility] PPGStart: 03-28-2024 End: 02-97-8877ihwqtpugmhMN Dinesh Bobo Work Phone: [facility] Work Phone: Start: 03-28-2024 End: 93-97-4719Zwtcxlz encounter procedureMD Dinesh Bobo Work Phone: [facility]-XRay Main [place] Work Phone: Start: 03-12-2024 End: 71-94-5361Qtkmxrl evaluation of patient and reportBreath Test [facility] Work Phone: [facility] Comment on above:Diarrhea, unspecified type (Primary Dx)Start: 12-48-6608Hff- patient / Non-visitMD Dinesh Bobo Work Phone: [facility] Gastroenterology Work Phone: Start: 01-07-2024 End: 31-44-2201Uubuggcpx to same day surgery centerMD Dinesh Bobo Work Phone: [facility]-Digestive Health Work Phone: Start: 01-07-2024 End: 01-97-1472bnbexbbgwzKT Marcia E Braun Work Phone: [facility] Work Phone: Start: 12-13-2023 End: 74-39-7642Aadhxyd encounter procedureMD Dinesh Bobo Work Phone: firuppergladesemaj Physician [facility] Gastroenterology Work Phone: Start: 43-50-7809Yas-patient / Non-visitMD Dinesh Bobo Work Phone: [facility] Work Phone: Start: 11-02-2023 End: 80-09-2343dcdkitnmbyQI Dinesh Salvador Bobo Work Phone: [facility] Work Phone: Start: 11-02-2023 End: 17-47-7128Rmnnmsn encounter procedureMD Dinesh Bobo Work Phone: [facility]-CT Scan Main [place] Work Phone: Start: 10-31-6952Fit-patient / Non-visitMD Dinesh Bobo Work Phone: [facility]ician [facility] Work Phone: Start: 01-19-1043Ndf-patient / Non-visitMD Dinesh Bobo Work Phone: [facility]ician [facility] Work Phone: Start: 08-76-5571Vtj-patient / Non-visitMD Dinesh Bobo Work Phone: [facility] G[facility]ology Work Phone: Start: 10-19-2023 End: 59-43-2516Rjpddyoyq to same day surgery centerMD Dinesh Bobo Work Phone: [facility] Work Phone: Start: 10-19-2023 End: 59-71-5290jbnzzasekqRS Dinesh Bobo Work Phone: [facility] Work Phone: Start: 10-03-2023 End: 13-60-1757asniqnyjbkDaudghjiy Regional [facility] Center Work Phone: Start: 10-03-2023 End: 36-98-9059Ekrqgmm encounter procedureNov[facility] Work Phone: Start: 09-07-2023 End: 85-76-6870tgqguwwkafFtmwaskxyUniversity [facility]als [facility] Work Phone: Start: 09-07-2023 End: 49-41-0433Tjomonv encounter procedureFirelands Physician Group-[facility] Work Phone: Start: 30-62-7425Hbk-patient / Non-visitFirelands Physician Group-[facility] Professional [employer] Work Phone: Start: 07-17-2023 End: 63-62-4877gattsuiadzLsbuxp Braun Other [employer] Other Start: 44-95-3478Nwuefimpj encounterMarhaylee JeramieBrecksville VA / Crille Hospitaltart: 06-29-2023 End: 72-73-9570xlqqyijuwvTnxqll Braun Other [employer] Other Start: 28-89-7151Iwplmp outpatient visit 15 minutes Dinesh JeramieBrecksville VA / Crille Hospitaltart: 06-29-2023 End: 12-26-2470Yutkznf encounter procedureFirelands Physician Group-[facility] Medical [facility] Work Phone: Start: 10-11-2022 End: 25-73-2675vcteinntmtRtogx A Browncility:FTMCStart: 10-11-2022 End: 61-53-2287AhvxrcllwAxamv A Brown [facility] Start: 08-23-2022 End: 00-55-3004qmoulcegptDtyjeb Braun Other [employer] Other Start: 54-63-4785Osjbmztvt encounterMarcievin JeramieBrecksville VA / Crille Hospitaltart: 08-21-2022 End: 80-36-2468wgbjjwiwsqQoiesq Braun Other [employer] Other Start: 24-71-3857Syvwnnkca encounterMarcia JeramieBrecksville VA / Crille Hospitaltart: 08-18-2022 End: 26-05-2990vdrdotllfvMlqbo A BrownFacility:FTMCStart: 08-18-2022 End: 30-56-0573Mgqdmnneq to same day surgery Idalia Proctor [facility] Start: 08-16-2022 End: 40-09-9153xfjpagvyhoDwnpab Bobo Other [facility] [employer] Other Start: 63-20-4101Xazkiz outpatient visit 15 minutes Dinesh [facility]oR[facility]ide [facility] ClinicStart: 08-14-2022 End: 46-33-0724piehnwzcmuIY DINESH BOBOFacility:X1Jifyh: 08-08-2022 End: 49-43-7943rfruchqsncWnmzu A BrownFacility:FTMCStart: 08-08-2022 End: 80-36-3103Vwevowk encounter procedureReza Proctor [facility] Start: 01-23-2022 End: 17-03-3855njxayraylwCT DINESH BOBOFacility:V2Jccae: 01-12-2022 End: 75-89-0231fscsltiqvdAO DINESH BOBOFacility:D9Tgrnn: 01-09-2022 Gynecological examination normalMarcia Bobo Other [facility] [employer] Other Start: 11-15-2021 End: 71-52-5070yguzgdiltyOkmf Jeramie Other [facility] [employer] Other start: 98-71-1747Bhfdkt outpatient new 30 minutesDale JeramieMorristown-[facility], [place] NeurosurgeryStart: 10-31-2021 End: 46-73-7499jkzmiifqwvHF DINESHNICOLE BOBOFacility:G3Zrklg: 10-21-2021 End: 70-05-6512fqtpoomgxvHD DINESHNICOLE BOBOFacility:H1 Procedures DateProcedureProcedure DetailPerforming ClinicianStart: 58-72-3816XL of small intestineDinesh Bobo MD Work Phone: Start: 63-29-6404Louronuq totalComment on above:Please Note: The reference interval and flagging for this test is for an AM collection. If this is a PM collection please use: Cortisol PM: 2.3- 11.9Performed at: [address] [id number] Director: Lloyd Wu PhD, Phone: [phone]: 12-95-8869Iiuycs abdominal X-rayMD Dinesh Bobo Work Phone: Start: 77-12-8792Sgcyzytv fiberoptic sigmoidoscopyMD Dinesh Bobo Work Phone: Start: 11-07-2023E coli Shiga Toxin EIAMD Dinesh Bobo Work Phone: Start: 74-02-6234Vjdyvwpdzv/Shigella ScreenMD Dinesh Bobo Work Phone: Start: 60-51-9723Qirrvqlf tomography of abdomen and pelvis with contrastMD Dinesh Bobo Work Phone: Start: 18-72-1258FainenxjqwkubtdckbrscbhqtnUC Dinesh Jeramie Work Phone: Start: 24-74-7969FflihcmlwxoKdznp Brown Start: 22-54-3422Mgddfadrz mammographyMenaevin Jeramie Other CholecystectomyReza Proctor ColonoscopyReza Proctor Excision of cystReza Proctor H/O: surgeryDale Jeramie Other History of total hysterectomyReza Proctor Procedure on brain ventricular shuntReza Proctor Plan of Treatment DateCare ActivityDetailAuthorStart: 78-17-2916MmtrtMercy Health Urbana Hospitaltart: 79-75-6119Rpjqzomy identified in Urine by CultureUrine CultureCrystal Clinic Orthopedic Centertart: 64-72-6941Sddxejv referral [facility] Work Phone: Start: 64-78-1085Xaagccj [facility] Work Phone: Start: 44-21-0919XaxjjwijbToledo Hospital Start: 05-12-1754Qydcgspl.pancreatic [Mass/mass] in StoolCrystal Clinic [facility]: 93-98-0153Rcnuw-19 Vaccine ()Covid-19 Vaccine ()[facility]: 41-78-8065Awynvyeij vaccinationInfluenza Vaccine (#1)[facility]: 51-51-3500StkpyfvjvCrystal Clinic [facility] Centertart: 07-56-9167OcyfjzgtkCrystal Clinic [facility]opedic Centertart: 14-62-2642Bjpfolc [facility] Work Phone: Start: 76-26-0698Ogpyaqwo ScreeningDiabetes Screening [facility]: 08-00-6913Fjnio panelLipid ScreeningSelect [facility]ty [facility] [place] Start: 45-43-9240Zlzeemmgv for malignant neoplasm of colonWilson Memorial Hospitaltart: 12-33-4073Soqoqluwp for malignant neoplasm of breastMammogram Screening [facility]: 90-05-2542Pzghrkakw for malignant neoplasm of cervix Cervical Cancer ScreeningWilson [facility] Hospitaltart: 66-11-8380Mjjbsqemx B Vaccine (1 of 3 - 19+ 3-dose series)Hepatitis B Vaccine (1 of 3 - 19+ 3-dose series) [facility]: 13-93-5808Rrotl microalbumin profileDTaP,Tdap,Td Vaccine (1 - Tdap)[facility]: 06-67-4895Deidhym ScreeningAnxiety Screening [facility]: 96-80-6642Hnfratwwrn ScreeningDepression Screening [facility]: 84-26-4646Jduzvuyof C screeningHepatitis C Screening [facility]: 16-54-6513AJR screeningHIV ScreeningCleveland ClinicCT Abdomen and PelvisToledo HospitalMG Breast - bilateral DiagnosticToledo HospitalMG Breast - bilateral Screening [facility] HospitalPatient EducationLancaster Municipal Hospital Work Phone: Patient referralCincinnati [facility]rin[facility] Work Phone: [facility] Payers DatePayer CategoryPayerPoly [id number] [employer] [id number] [id number] 2..1.097851.3.57[id number] 2..1.156591.3.57[id number] 2..1.533180.3.57[id number] 2..1.768470.3.57[id number] 2..1.334475.3.57[id number] 2..1.566085.3.57[id number] 2..1.568939.3.57[id number] 2..1.595805.19 [id number] 2..1.749056.33UwixhyrCstsykvxoO00672156-24 0d6124t2-uy99-8kdr-[id number] 2.0.1.2[id number] 2..1.368208.3.579.2.531 [id number] 2.16.840.1.319411.3.579.2.531 Social History DateTypeDetailFacilityStart: 77-12-9861Geb Assigned At BirthHarrison [facility] Hospitaltart: 67-71-5214Hdhdpwh smoking statusLight tobacco smoker (finding)[facility]: 07-15-4369Qui Assigned At FemaleCrystal Clinic Orthopedic Centertart: 10-19-2023 End: 06-46-8534Fmfziur smoking status NHISSmoker (finding)[facility] HospitalTobaintegris [facility] [place] smoking status NHISTobacco smoking consumption unknown [facility]: 49-42-8983Rnaetxz of Social functionSelect Medical Specialty Hospital [facility] [place] National Score (1-100), lower number is lower pzic44CroctegmqWilson Memorial Hospitaltart: 84-64-9039Ane assigned at birthNot on fileWilson Memorial Hospitaltart: 10-01-2024 End: 68-50-7128OlpRbjmvd (finding)[facility]: 01-07-2024 End: 22-88-1228Pmrblsm smoking status NHISSmokes tobacco daily (finding) [facility] Medical Equipment Procedure CodeEquipment CodeEquipment Original TextEquipment IdentifierDates ULNAR NERVE TRANSPOSITION Reza Proctor DO 08/18/22 Unknown Elbow LFDAStart: 31-70-0421WJZFE NERVE TRANSPOSITION Reza Proctor DO 08/18/22 Unknown Elbow LFDA Start: 08-18-2022 Goals DatePatient GoalDesired Activity/State Functional Status BadlEkhzjecjqtVxjkneDfcurkil64-29-4524Vmtwbdhexb StatusNoKettering Health Clinical Notes 11-15-2021 to 03-19-2025 Note Date & SnjxGvbsXbxboaib72-59-8516 NoteBellevue Office [facility] Note Reason for [...] Recorded Vitals Visit Vitals (more content not included)...[facility] 01-13-2025 Evaluation note* Diagnosis Onset Date Resolution Status Admit Date Acute effusion of both middle ears acuteJuly 2024 1:08pmEar canal massacuteJuly 2024 1:08pmClass 2 obesity with body mass index (BMI) of 35.0 to 35.9 in adultacuteAugust 2024 1:30pmInsomniaacuteAugust 2024 1:30pmMajor depressive disorderacuteAugust 2024 1:30pmPink eye disease of both eyesacuteAugust 2024 10:38am Chronic migraine without aura or status migrainosusacuteSeptember 2024 9:49amStatus post ventriculo-peritoneal shunt placementacuteSept2024 9:49amBreast pain, leftacuteSeptember 2024 2:28pmChest painacuteSeptember 2024 2:28pmScreening mammogram for breast canceracutept2024 2:28pmSmokeracuteSeptember 2024 2:28pmVaginal yeast infectionacute March 16, 2025 2:28pm [facility] Work Phone: 1(152) 116-603507-22-2025 Hospital Discharge instructionsAmbulatory Orders* Referral to ENT Time Frame: 01/13/25, Location: None [facility] Work Phone: 1(236) 447-428606-27-2025 Evaluation note* Diagnosis Onset Date Resolution Status Admit Date Class 2 obesity with body mass index (BM I) of 35.0 to 35.9 in adult acuteJune 2024 1:01pmHeadacheacuteJune 2024 1:01pmIntracranial shunt acuteJune 2024 1:01pmAcute effusion of both middle earsacuteJuly 2024 1:08pmEar canal massacuteJuly 2024 1:08pmClass 2 obesity with body mass index (BMI) of 35.0 to 35.9 in adultacuteAugust 2024 1:30pmInsomnia acuteAugust 2024 1:30pmMajor depressive disorderacuteAugust 2024 1:30pmPink eye disease of both eyesacuteAugust 2024 10:38amChronic migraine without aura or status migrainosusacuteSeptember 2024 9:49am Status post ventriculo-peritoneal shunt placementacuteSeptember 2024 9:49am [facility] Work Phone: 1(527) 966-171806-27-2025 Evaluation note* Diagnosis Onset Date Resolution Status Admit Date Class 2 obesity with body mass index (BM I) of 35.0 to 35.9 in adult acuteJune 2024 1:01pmHeadacheacuteJune 2024 1:01pmIntracranial shunt acuteJune 2024 1:01pmAcute effusion of both middle earsacuteJuly 2024 1:08pmEar canal massacuteJuly 2024 1:08pmClass 2 obesity with body mass index (BMI) of 35.0 to 35.9 in adultacuteAugust 2024 1:30pmInsomnia acuteAugust 2024 1:30pmMajor depressive disorderacuteAugust 2024 1:30pmPink eye disease of both eyesacuteAugust 2024 10:38amChronic migraine without aura or status migrainosusacuteSeptember 2024 9:49am Status post ventriculo-peritoneal shunt placementacuteSeptember 2024 9:49amBreast pain, leftacuteSeptember 2024 2:28pm [facility] Work Phone: 1(871) 932-377805-30-2025 Evaluation note* Diagnosis Onset Date Resolution Status Admit Date Class 2 obesity with body mass index (BM I) of 36.0 to 36.9 in adult inactiveMay 2024 10:55amClass 2 obesity with body mass index (BMI) of 35.0 to 35.9 in adultacuteJune 2024 1:01pmHeadacheacuteJune 2024 1:01pm Intracranial shuntacuteJune 2024 1:01pmEar canal massacuteJuly 2024 1:08pm [facility] Work Phone: 1(473) 135-753405-30-2025 Evaluation note* Diagnosis Onset Date Resolution Status Admit Date Class 2 obesity with body mass index (BM I) of 36.0 to 36.9 in adult inactiveMay 2024 10:55amClass 2 obesity with body mass index (BMI) of 35.0 to 35.9 in adultacuteJune 2024 1:01pmHeadacheacuteJune 2024 1:01pm Intracranial shuntacuteJune 2024 1:01pmAcute effusion of both middle ears acuteJuly 2024 1:08pmEar canal massacuteJuly 2024 1:08pm [facility] Work Phone: 1(177) 825-114005-30-2025 Evaluation note* Diagnosis Onset Date Resolution Status Admit Date Class 2 obesity with body mass index (BM I) of 36.0 to 36.9 in adult inactiveMay 2024 10:55amClass 2 obesity with body mass index (BMI) of 35.0 to 35.9 in adultacuteJune 2024 1:01pmHeadacheacuteJune 2024 1:01pm Intracranial shuntacuteJune 2024 1:01pmAcute effusion of both middle ears acuteJuly 2024 1:08pmEar canal massacuteJuly 2024 1:08pmClass 2 obesity with body mass index (BMI) of 35.0 to 35.9 in adultacuteAugust 2024 1:30pmInsomniaacuteAugust 2024 1:30pmMajor depressive disorderacuteAugust 2024 1:30pm [facility] Work Phone: 1(141) 578-759504-09-2025 Evaluation note* Diagnosis Onset Date Resolution Status Admit Date Irritable bowel syndrome with diarrhea acuteApril 2024 1:54pm [facility] Work Phone: 1(551) 562-223004-09-2025 Evaluation note* Diagnosis Onset Date Resolution Status Admit Date Irritable bowel syndrome with diarrhea acuteApril 2024 1:54pmSinusitis, acute maxillaryacuteApril 2024 9:48amClass 2 obesity with body mass index (BMI) of 36.0 to 36.9 in adultacute November 21, 2024 10:55am [facility] Work Phone: 1(891) 871-273304-09-2025 Evaluation note* Diagnosis Onset Date Resolution Status Admit Date Irritable bowel syndrome with diarrhea acuteApril 2024 1:54pmSinusitis, acute maxillaryacuteApril 2024 9:48amClass 2 obesity with body mass index (BMI) of 36.0 to 36.9 in adultacute November 21, 2024 10:55amHeadacheacuteJune 2024 1:01pmIntracranial shuntacute December 19, 2024 1:01pm [facility] Work Phone: 1(702) 532-625101-31-2025 NoteBellevue Office [facility]iology Clinic Note Reason for [...] She reports 2 events of syncope same-day dyum-ys-jndy as described above RESPIRATORY: Denies SOB, coughing, [...] sinus arrhythmia, RSR nelson (more content not included)...[facility]01-10-2025 Evaluation note* Diagnosis Onset Date Resolution Status Admit Date Irritable bowel syndrome with diarrhea acuteJanuary 2024 9:19am [facility] Work Phone: 1(906) 913-639809-18-2024 History of Present illness Narrative* Shelley Gamboa APRN.TREE TOPPER - 03/12/2024 5:04 PM EDT Glucose - SIBO CPT 61064 Hydrogen Breath Test Poornima Barker 1975 March 12, 2024 Referring Physician: Imelda Jiang DO Indication: NSG TEST INDICATIONS: DIARRHEA R19.7 Weight: 183 lbs Location: [facility] Duration of Test: 2 Hours Hydrogen Methane CO2 MEASURED CORRECTION FACTOR TESTERS NAME Baseline 9:15 am 3 5 4.0 1.37 Maxine Rosa, RMA Test Solution Given: 100 gm Glucose 10 oz Liquid Maxine Rosa, RMA #1 - 15 minutes 9:30 am [...] physician Signature:Shelley Gamboa APRN.CNP documented in this encounterSelect [facility] [place]07-15-2024 Procedure noteToledo Hospital04-26-2024 History and physical note Author Imelda Jiang [facility] October 19, 2023 9:55amNote Date/TimeApril 2023 9:55[place] [address] Gastroenterology H&P Signed Patient: Poornima Barker MR#: [id number] : 1975 Acct:[id number] Age/Sex: 48 / F Adm Date: 4 Loc: Room: Type: [facility] Attending Dr: Imelda Jiang DO Copies to: DO Dinesh Garcia MD~ Date of Service: 10/19/2023 HISTORY & PHYSICAL: Patient's history with special attention to the cardiovascular, pulmonary systems and the current problem was reviewed with the patient immediately prior to the procedure. Present medications and doses reviewed in the EMR. Allergies and pertinent laboratory tests were also re viewedat this time in the EMR. The physical [...] signed by Imelda Jiang DO> 10/19/23 0955 [facility] Work Phone: 1(225) 127-364604-26-2024 Procedure noteToledo Hospital04-26-2024 Procedure noteToledo Hospital01-23-2024 Evaluation note* Encounter Date Diagnosis Assessment Notes Treatment Notes Treatment Clinical Notes Jun, Major depressive dis order with single episode, remission status unspecified (ICD-10 - F32.9) Jun,Insomnia, unspecified (ICD-10 - G47.00) [employer] Other 01-05-2024 Evaluation note* Encounter Date Diagnosis Assessment Notes Treatment Notes Treatment Clinical Notes Jun, Major depressive dis order with single episode, remission status unspecified (ICD-10 - F32.9) call or come in 1 month for recheck gave counseling options Jun,Insomnia, unspecified (ICD-10 - G47.00)as above [employer] Other 02-24-2023 Evaluation + Plan noteExtracted from:Title: ANESemaj Post-operative NoteAuthor:David Montaño MDDate:08/18/22 Plan Transfer/Discharge: Transfer/Discharge Discharge when meets criteria ( From PACU to Ambulatory Surgery Unit, and To home ). Extracted from:Title:DARREN Pre-operative NoteAuthor:David Montaño MDDate: 08/18/22 Plan [place] [employer]hesi[employer] (ASA) physical status classification: Class II. Anesthetic Preoperative Plan: Anesthesia General. Regional Interscalene block.[facility]02-24-2023 Hospital Discharge instructions Patient Education 08/18/2022 07:13:25 Ric Proctor - Upper Extremity Fracture Surgery (Custom) [place], [place] [facility] UPPER EXTREMITY SURGERY Home [...] too soon, you are considered an impaired port cdl a driver, and this could be a problem. It is therefore advised notto drive until after your first office visit following surgery. Do not drive while taking pain medication. Reza Proctor, DO [facility] [address] [place] [address] Reviewed: 08/18/2022 06:11:36 Post Op Patient Instructions - FT (Custom) [facility]02-23-2023 Note [id number]:127[facility] 08-16-2022 Evaluation note* Encounter Date Diagnosis Assessment Notes Treatment Notes Treatment Clinical Notes Jul, Other non-recurrent acute nonsuppurative otitis media of both ears (ICD-10 - H65.193) Stop augmentin. Switch to zpack. Finish all antibiotic. Get OTC debrox for R ear treatment for cerumen. [employer] Other 07-22-2022 NotePROCEDURE: XR ELBOW LT MIN [...] Electronically authenticated by: ROSANNE PERKINS Date: 2022-01-13 07:40[facility]07-22-2022 NotePROCEDURE: XR ELBOW LT MIN 3 [...] Electronically authenticated by: ROSANNE PERKINS Date: 2022-01-13 07:40[facility]05-24-2022 Evaluation note* Encounter Date Diagnosis Assessment Notes Treatment Notes Treatment Clinical Notes October, Pseudotumor cerebri (ICD-10 - G9 3.2) This is a patient with pseudotumor cerebri [...] pump well. I reviewed independently the plain x- ray of the shunt AP and lateral showing good attachments and placement in the abdomen. I have independently reviewed the CT scan of the head showing no gross abnormalities in slit ventricles. Catheter in good placement. Given these findings I am not sure what to tell the patient. I am sending her for a ophthalm ologic exam to evaluate retina for papilledema and visual simpson. 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 [employer] Other evaluation + Plan note Future Appointments Appointment Date:08/18/2022 09:30:00 AM Scheduled Provider: Location:[facility] Appointment Type[facility]gery FT [facility]Evaluation noteNo InformationNortGuthrie Clinic [employer] Other Evaluation note* Diagnosis Onset Date Resolution Status Screening mammogram for breast cancer acute [facility] Work Phone: Evaluation note* Diagnosis Onset Date Resolution Status Epigastric abdominal pain acuteGERD (gastroesophageal reflux disease)acuteScreening mammogram for breast canceracuteChronic constipationacuteEpigastric abdominal painacuteGERD (gastroesophageal reflux disease)acuteScreening for colon canceracute [facility] Work Phone: Evaluation note* Diagnosis Onset Date Resolution Status Diarrhea acuteEpigastric abdominal painacuteGERD (gastroesophageal reflux disease)acute [facility] Work Phone: Evaluation note* Diagnosis Onset Date Resolution Status Diarrhea acute [facility] Work Phone: Evaluation note* Diagnosis Diarrhea, unspecified type- Primary documented in this encounter [facility] [place]History and physical note Author Imelda Jiang [facility] January 07, 2024 12:35pmNote Date/TimeJuly 2023 12:35pm[place] [address] Gastroenterology H&P Signed Patient: Poornima Barker MR#: [id number] : 1975 Acct:[id number] Age/Sex: 48 / F Adm Date: 4 Loc: Room: Type: [facility] Attending Dr: Imelda Jiang DO Copies to: DO Dinesh Garcia MD~ Date of Service: 01/07/2024 HISTORY & PHYSICAL: Patient's history with special attention to the cardiovascular, pulmonary systems and the current problem was reviewed with the patient immediately prior to the procedure. Present medications and doses reviewed in the EMR. Allergies and pertinent laboratory tests were also re viewedat this time in the EMR. The physical [...] signed by Imelda Jiang DO> 01/07/24 1235 [facility] Work Phone: History general Narrative - Reported* Type Description Date Medical History Migrande headaches Surgical HistoryProcedure:cyst removal;Disease:urgical History Procedure:Tonsillectomy;Disease:1992Surgical History Procedure:laproscopic;Disease:1999Surgical HistoryProcedure: section;Disease:2004Surgical HistoryProcedure:gallbladder;Disease:2005Surgical HistoryProcedure:Hysterectomy;Disease:2005Surgical HistoryProcedure:shunt in head;Disease:2009Hospitalization HistorySee Sx Hx [employer] Other History general Narrative - Reported* Type Description Date Medical History Migraine headaches Medical HistoryPseudotumor cerebri syndromeMedical HistoryTransfusion history Surgical HistoryProcedure:cyst removal;Disease:urgical History Procedure:Tonsillectomy;Disease:1992Surgical History Procedure:laproscopic;Disease:1999Surgical HistoryProcedure: section;Disease:2004Surgical HistoryProcedure:gallbladder;Disease:2005Surgical HistoryProcedure:Hysterectomy;Disease:2005Surgical HistoryProcedure:shunt in head;Disease:2009Hospitalization HistorySee Sx Hx [facility] [facility] [employer] Other History general Narrative - Reported* Type Description Date Medical History Migraine headaches Medical HistoryPseudotumor cerebri syndromeMedical HistoryTransfusion history Surgical HistoryProcedure:cyst removal;Disease:1980Surgical History Procedure:Tonsillectomy;Disease:1992Surgical History Procedure:laproscopic;Disease:1999Surgical HistoryProcedure: section;Disease:2004Surgical HistoryProcedure:gallbladder;Disease:2005Surgical HistoryProcedure:Hysterectomy;Disease:2005Surgical HistoryProcedure:shunt in head;Disease:2009Surgical HistoryLeft elbow surgery07/2022Hospitalization History See Sx Hx [employer] Other Hospital course Narrative No data available for this section [facility] Dis[facility] instructions No data available for this section [facility] Discharge instructionsAmbulatory Orders* Referral to Neurology Time Frame: 12/19/24, Location: None [facility] Work Phone: Progress note No data available for this section [facility] HealthReason for visit NarrativeReferral Dinesh Bobo Pseudotumor Cerebri SyndromeNort [employer] Other Reason for Referral Reason *FU 11/24 Papilled carlos and Visual Field Exams with DETAILED Interpretations and Reports Please Diagnosis 1 Pseudotumor cerebri (G93.2) Referral Organization [facility], [place] Ne urosurgery Referring Provider First Name Seb Referring Provider Last Name Jeramie Referring Provider Specialty Neurologica l Surgery Referred Organization [facility] Referred Provider Robi Parada Referred Address [address] [place], [place],[address] Referred Provider Specialty Ophthalmolog y Referral Priority Routine General Notes Fore, Yvonne M 022 07:22:14 AM >Received and fax referral today Summary Purpose Family History No Family History Records Found Relationship Condition Age at Onset Recorded Date/T renée father Unknown History of strokeUnknownNot SpecifiedHeart diseaseUnknown Relationship Condition Age at Onset Recorded Date/T renée father Unknown History of strokeUnknownDisorder of thyroidUnknownDementiaUnknownNot Specified Heart diseaseUnknownMalignant neoplasm of breastUnknown Relationship Condition Age at Onset Recorded Date/T renée father Unknown History of strokeUnknownDisorder of thyroidUnknownDementiaUnknownmotherHeart diseaseUnknownMalignant neoplasm of breastUnknown Advance Directives No Advanced Directives Records Found Advance Directive Response Recorded Date/ Time Advance Directives No September 06, 024 11:23am Advance Directive Response Recorded Date/ Time Advance Directives No October 15, 4:19pm Advance Directive Response Recorded Date/ Time Advance Directives No February 10:19am Chief Complaint and Reason for Visit Chief Complaint Medication For Depre ssion Amb Documentation ulcersReason for VisitScreening mammogram for breast cancer Chief Complaint Amb Documentation ulcers gerd/epigastric pain/dr bobo referredReason for VisitEpigastric abdominal pain GERD (gastroesophageal reflux disease) Screening mammogram for breast cancer Chronic constipation Epigastric abdominal pain GERD (gastroesophageal reflux disease) Screening for colon cancer Chief Complaint Amb Documentation ulcers gerd/epigastric pain/dr bobo referred screening, epigastric pain screening, epigastric painReason for VisitEpigastric abdominal pain GERD (gastroesophageal reflux disease) Screening mammogram for breast cancer Chronic constipation Epigastric abdominal pain GERD (gastroesophageal reflux disease) Screening for colon cancer Chief Complaint Amb Documentation ulcers gerd/epigastric pain/dr bobo referred screening, epigastric pain screening, epigastric pain Amb Documentation Amb Documentation R10.9Reason for VisitEpigastric abdominal pain GERD (gastroesophageal reflux disease) Screening mammogram for breast cancer Chronic constipation Epigastric abdominal pain GERD (gastroesophageal reflux disease) Screening for colon cancer Chief Complaint screening, epigastri c pain screening, epigastric pain Amb Documentation Amb Documentation R10.9 FOLLOW UP Diarrhea DiarrheaReason for VisitDiarrhea Epigastric abdominal pain GERD (gastroesophageal reflux disease) Chief Complaint Diarrhea Diarrhea Follow up/Breath test/still having sym R19.7Reason for VisitDiarrhea Chief Complaint Admit Date 3 month follow [...] 0pm Major depressive disorder January 27 1:30pm [place] eye disease of both eyes January 10:38am [...] 0pm Major depressive disorder January 27 1:30pm [place] eye disease of both eyes January 10:38am Chronic migraine without aura or status migrainosus March 11, 2025 9:49am Status post ventriculo-peritoneal shunt placement March 11, 2025 9:49am Breast pain, left March 16, 2025 2:28pm Chief Complaint Admit Date right ear fullness January 13, 2025 1:08 pm medication concerns January 27, 2025 1:3 0pm Left eye redness February 18, 2025 10 :38am Amb Documentation March 10, 2025 10:05am [facility] March 16, 2025 2:28pm Amb Documentation March 18, 2025 1:47pm Unknown March 30, 2025 4: 00pm Reason for Visit Admit Date Acute effusion of both middle ears January 13, 2025 1:08pm Ear canal mass January 13, 2025 1:08 pm Class 2 obesity with body ma ss index (BMI) of 35.0 to 35.9 in adult January 27, 2025 1:30pm Insomnia January 27, 2025 1:3 0pm Major depressive disorder January 27 1:30pm [place] eye disease of both eyes January 10:38am Chronic migraine without aura or status migrainosus March 11, 2025 9:49am Status post ventriculo-peritoneal shunt placement March 11, 2025 9:49am Breast pain, left March 16, 2025 2:28pm Chest pain March 16, 2025 2:28pm Screening mammogram for breast cancer Se ptember 2024 2:28pm Smoker March 16, 2025 2:28pm Vaginal yeast infection March 16, 2025 2:28pm Additional Source Comments Patient Care team informatio n (unrecognized section and content) Team Status: Active Member Role Status Dates Dinesh Bobo MD Primary Care Provider Active Team Status: Inactive Member Role Status Dates Dinesh Bobo MD Primary Care Provider Active Start: October 01, 2024 End: October 01atherine L Ly , DOAttending ProviderActiveStart: October 01, 2024 End: October 01, 2024 Team Status: Inactive Member Role Status Dates Dinesh Bobo MD Primary Care Provider Active Start: October 03, 2024 End: October 03atherine L Ly , DOAttending ProviderActiveStart: October 03, 2024 End: October 03, 2024 Team Status: Inactive Member Role Status Dates Dinesh Bobo MD Primary Care Provide r, Attending Provider Active Start: October 14, 2024 End: October 14, 2024 Team Status: Active Member Role Status Dates Dinesh Bobo MD Primary Care Provider Active Start: October 14, 2024 Tayla Vargas CMAAttending ProviderActiveStart: October 14, 2024 Team Status: Inactive Member Role Status Dates Dinesh Bobo MD Primary Care Provider Active Start: November 07, 2024 End: November 07atherine L Ly , DOAttending ProviderActiveStart: November 07, 2024 End: November 07, 2024 Team Status: Inactive Member Role Status Ade Bobo MD Primary Care Provide r, Attending Provider Active Start: November 21, 2024 End: November 21, 2024 Team Status: Active Member Role Status Dates Dinesh Bobo MD Primary Care Provider Active Start: July 26, 2024 Van Hernandez MDAttending ProviderActiveStart: July 26, 2024 Team Status: Inactive Member Role Status Dates Dinesh Bobo MD Primary Care Provider Active Start: October 19, 2023 End: October 18atherine L Ly , DOAttending ProviderActiveStart: October 19, 2023 End: October 19, 2023 Team Status: Active Member Role Status Dates Dinesh Bobo MD Primary Care Provider Active Start: October 19, 2023 Imelda L Ly , DOAttending Provider, Other ProviderActiveStart: October 19, 2023 Team Status: Active Member Role Status Ade Bobo MD Primary Care Provider Active Start: October 22, 2023 Eri MatthewJaylankristofer ProviderActiveStart: October 22, 2023 Team Status: Active Member Role Status Ade Bobo MD Primary Care Provider Active Start: October 24, 2023 Tayla Vargas CMAAttending ProviderActiveStart: October 24, 2023 Team Status: Inactive Member Role Status Ade Bobo MD Primary Care Provider Active Start: November 02, 2023 End: November 014Catherine L Ly , DOAttending ProviderActiveStart: November 02, 2023 End: November 02, 2023 Team Status: Active Member Role Status Ade Bobo MD Primary Care Provide r, Attending Provider Active Start: November 07, 2023 Team Status: Inactive Member Role Status Ade Bobo MD Primary Care Provider Active Start: December 13, 2023 End: December 124Catherine L Ly , DOAttending ProviderActiveStart: December 13, 2023 End: December 13, 2023 Team Status: Inactive Member Role Status Ade Bobo MD Primary Care Provider Active Start: January 07, 2024 End: January 064Catherine L Ly , DOAttending ProviderActiveStart: January 07, 2024 End: January 07, 2024 Team Status: Active Member Role Status Ade Bobo MD Primary Care Provider Active Start: January 07, 2024 Imelda L Ly , DOAttending Provider, Other ProviderActiveStart: January 07, 2024 Team Status: Active Member Role Status Ade Bobo MD Primary Care Provider Active Start: August 14, 2023 Fidel Walker ProviderActiveStart: August 14, 2023 Team Status: Inactive Member Role Status Ade Bobo MD Primary Care Provide r, Attending Provider Active Start: September 07, 2023 End: September 07, 2023 Team Status: Inactive Member Role Status Ade Bobo MD Primary Care Provider Active Start: October 03, 2023 End: October 024Catherine L Ly , DOAttending ProviderActiveStart: October 03, 2023 End: October 03, 2023 Team Status: Inactive Member Role Status Ade Bobo MD Attending Provider Active St art: June 29, 2023 End: June 29, 2023 Team Status: Inactive Member Role Status Dates Dinesh Bobo MD Primary Care Provider Active Start: March 28, 2024 End: March 28atherine L Ly , DOAttending ProviderActiveStart: March 28, 2024 End: March 28, 2024Team MemberRelationshipSpecialtyStart DateEnd Date Dinesh Bobo MD [address] [place] [address] PCP - [facility]03/12/24 Team Status: Inactive Member Role Status Dates Dinesh Bobo MD Primary Care Provider Active Start: July 04, 2024 End: July 04atherine L Ly , DOAttending ProviderActiveStart: July 04, 2024 End: July 04, 2024 Team Status: Inactive Member Role Status Dates Dinesh Bobo MD Primary Care Provider Active Start: October 14, 2024 End: October 14, 2024Veronica Conklin ProviderActiveStart: October 14, 2024 End: October 14, 2024 Team Status: Inactive Member Role Status Dates Dinesh Bobo MD Primary Care Provider Active Start: November 21, 2024 End: November 21, 2024Veronica Conklin ProviderActiveStart: November 21, 2024 End: November 21, 2024 Team Status: Inactive Member Role Status Dates Dinesh Bobo MD Primary Care Provider Active Start: December 19, 2024 End: December 19, 2024Veronica Conklin ProviderActiveStart: December 19, 2024 End: December 19, 2024 Team Status: Inactive Member Role Status Dates Dinesh Bobo MD Primary Care Provider Active Start: January 13, 2025 End: January 13, 2025Veronica Conklin ProviderActiveStart: January 13, 2025 End: January 13, 2025 Team Status: Inactive Member Role Status Dates Dinesh Bobo MD Primary Care Provider Active Start: January 27, 2025 End: January 27, 2025Veronica Conklin ProviderActiveStart: January 27, 2025 End: January 27, 2025 Team Status: Inactive Member Role Status Dates Dinesh Bobo MD Primary Care Provider Active Start: February 18, 2025 End: February 18, 2025Jaylin Carrero APRN [employer]SE SUPERVISOR-CAttending Provider ActiveStart: February 18, 2025 End: February 18, 2025 Team Status: Active Member Role Status Ade Bobo MD Primary Care Provider Active Start: March 08, 2025 Gatito Esparzaending ProviderActiveStart: March 08, 2025 Team Status: Active Member Role Status Ade Bobo MD Primary Care Provider Active Start: March 09, 2025 Gatito Esparzaending ProviderActiveStart: March 09, 2025 Team Status: Active Member Role Status Ade Bobo MD Primary Care Provider Active Start: March 10, 2025 Emmanuel Bass ProviderActiveStart: March 10, 2025 Team Status: Inactive Member Role Status Ade Bobo MD Primary Care Provider Active Start: March 11, 2025 End: March 11pepe Camacho DOAttending ProviderActive Start: March 11, 2025 End: March 11, 2025 Team Status: Active Member Role Status Ade Bobo MD Primary Care Provider Active Start: March 15, 2025 Anali Bello ProviderActiveStart: March 15, 2025 Team Status: Inactive Member Role Status Ade Bobo MD Primary Care Provider Active Start: March 16, 2025 End: March 16, 2025Veronica Conklin ProviderActiveStart: March 16, 2025 End: March 16, 2025 Team Status: Active Member Role Status Ade Bobo MD Primary Care Provider Active Start: March 18, 2025 Emmanuel Bass ProviderActiveStart: March 18, 2025 Team Status: Inactive Member Role Status Ade Bobo MD Primary Care Provider Active Start: March 30, 2025 End: March 30, 2025Veronica Conklin ProviderActiveStart: March 30, 2025 End: March 30, 2025 INFORMATION SOURCE (unrecogn ized section and content) DATE CREATED AUTHOR 08/17/2022 [facility] DATE CREATED AUTHOR AUTHOR'S ORGANIZ ATION 02/25/2023 [facility] DATE CREATED AUTHOR AUTHOR'S ORGANIZ ATION 05/25/2024 [facility] DATE CREATED AUTHOR AUTHOR'S ORGANIZ ATION 03/20/2025 [facility] DATE CREATED AUTHOR AUTHOR'S ORGANIZ ATION 04/02/2025 [facility] REASON FOR VISIT (unrecogniz ed section and content) ReasonCommentsBreath Hydrogen TestSibo Breath Test Results. Goals (unrecognized section and content) Goals may be documented in a n alternate section Source Comments (unrecognize d section and content) In the event this informatio n is protected by the Federal Confidentiality of Alcohol and Drug Abuse Patient Records regulations: The Federal rules restrict any use of the information to criminally investigate or prosecute any alcohol or drug abuse patient.[facility] FOR RECORDS PERTAINING TO PATIENTS WHO ARE [...] BE BASED ON THE PRIMARY CLINICAL RECORDS. [facility]. provides no warranty or guarantee of the accuracy or completeness of information in this document.
== END 2025-04-23 13:53 | disposition home or self-care (01) ==
LOC: RAD 13:53
PROVIDERS: PCP Family Medicine; Visit Provider Family Medicine
DX: M25.512 Pain in left shoulder (principal)
CPT/HCPCS: 73030